=== PATIENT | female | born 1945 | race Caucasian/White ===

== ENCOUNTER → 2016-11-08 | Outpatient (CLI) | payer MEDICARE, OTHER ==
[~2016-11-08] MED LIST: ALPR0.25 PO; CALC-671 PO; CYAN50TA PO; DILT120C82 PO; FENO145T20 PO; FLUO20CA25 PO; FLUO40CA PO; GLUC100016 PO; MELA10TA3 PO; MULT-974 PO; NITR0.4T39 SL; POTA99TA15 PO
== END ==
LOC: CARD 12:02
PROVIDERS: ATTEND Nurse Practitioner Family
DX: I48.91 Unspecified atrial fibrillation (principal)
CPT/HCPCS: 93005

== ENCOUNTER 2016-11-23 06:55 | Inpatient (IN) | payer MEDICARE, OTHER ==
[~2016-11-23] VITALS: Ht 152.4 cm; Wt 67.1 kg
[2016-11-23] VITALS (22 sets, daily range): BP systolic 113–157; BP diastolic 59–114
[~2016-11-23 06:55] MED LIST changes: +LIDOCAINE 2% VISCOUS 15 ML UDC ONE
[2016-11-23] MEDS ORDERED: NS IV 1000 ML 1,000 ML ONE (06:56)
[2016-11-23] MEDS ORDERED: NS IV 1000 ML 1,000 ML IV SCH (06:57)
--- OUTSIDE RECORDS SUMMARY | 2016-11-23 06:58 | XMS REPORT | Continuity of Care Document ---
Author Author [facility] Organization [facility] Address Unknown Phone Unavailable Allergies Active Description Code Type Severity Reaction Onset Reported/Identified Relationship to Patient Clinical Status Yes No Known Drug Allergies [id number] Drug Allergy Unknown N/ A 04/17/2013 Yes DYE DYE Unknown N/A 01/29/2016 Medications Problems Date Dx Coded Attending Type Code Diagnosis Diagnosed By 10/17/2012 JEANNE JEFF DO Ot 726.5 ENTHESOPATHY OF HIP 10/17/2012 JEANNE JEFF DO Ot V57.1 PHYSICAL THERAPY NEC 04/17/2013 GILDA BARNES MD Ot 211.4 BENIGN NEOPL RECTUM/ANUS 04/17/2013 GILDA BARNES MD Ot 562.10 DIVERTICULOSIS COLON (W/O MENT OF HEMORR 10/22/2014 GILDA BARNES MD Ot 211.4 BENIGN NEOPL RECTUM/ANUS 10/22/2014 GILDA BARNES MD Ot 414.01 CORONARY ATHEROSCLEROSIS OF [place] CORON 10/22/2014 GILDA BARNES MD Ot 562.10 DIVERTICULOSIS COLON (W/O MENT OF HEMORR 01/09/2015 HERMAN TEJEDA MD Ot 311 01/09/2015 HERMAN TEJEDA MD Ot 401.9 01/09/2015 HERMAN TEJEDA MD Ot 786.09 01/09/2015 HERMAN TEJEDA MD Ot 786.50 01/15/2015 HERMAN TEJEDA MD Ot 311 01/15/2015 HERMAN TEJEDA MD Ot 401.9 01/15/2015 HERMAN TEJEDA MD Ot 786.09 01/15/2015 HERMAN TEJEDA MD Ot 786.50 01/21/2015 HERMAN TEJEDA MD Ot 311 01/21/2015 HERMAN TEJEDA MD Ot 401.9 01/21/2015 HERMAN TEJEDA MD Ot 786.09 01/21/2015 HERMAN TEJEDA MD Ot 786.50 10/08/2015 Ot 719.45 JOINT PAIN-PELVIS 10/08/2015 GILDA BARNES MD Ot V72.84 EXAM PRE-OPERATIVE NOS 10/08/2015 ADRY KIRK, JENNIFER [place] Ot V71.2 OBSERV-SUSPECT TB 10/08/2015 GILDA BARNES MD Ot V72.84 EXAM PRE-OPERATIVE NOS 10/08/2015 HERMAN TEJEDA MD Ot 311 DEPRESSIVE DISORDER NEC 10/08/2015 HERMAN TEJEDA MD Ot 401.9 HYPERTENSION NOS 10/08/2015 HERMAN TEJEDA MD Ot 786.09 RESPIRATORY ABNORM NEC 10/08/2015 HERMAN TEJEDA MD Ot 786.50 CHEST PAIN NOS 10/08/2015 HERMAN TEJEDA MD Ot 311 DEPRESSIVE DISORDER NEC 10/08/2015 HERMAN TEJEDA MD Ot 401.9 HYPERTENSION NOS 10/08/2015 EHRMAN TEJEDA MD Ot 786.09 RESPIRATORY ABNORM NEC 10/08/2015 HERMAN TEJEDA MD Ot 786.50 CHEST PAIN NOS 10/08/2015 HERMAN TEJEDA MD Ot R00.2 PALPITATIONS 10/09/2015 HERMAN TEJEDA MD Ot F32.9 MAJOR DEPRESSIVE DISORDER, SINGLE EPISOD 10/09/2015 HERMAN TEJEDA MD Ot I10 ESSENTIAL (PRIMARY) HYPERTENSION 10/09/2015 HERMAN TEJEDA MD Ot R00.2 PALPITATIONS 10/09/2015 HERMAN TEJEDA MD Ot R06.00 DYSPNEA, UNSPECIFIED 10/12/2015 HERMAN TEJEDA MD Ot F32.9 MAJOR DEPRESSIVE DISORDER, SINGLE EPISOD 10/12/2015 HERMAN TEJEDA MD Ot I10 ESSENTIAL (PRIMARY) HYPERTENSION 10/12/2015 HERMAN TEJEDA MD Ot R00.2 PALPITATIONS 10/12/2015 HERMAN TEJEDA MD Ot R06.00 DYSPNEA, UNSPECIFIED 11/04/2015 HERMAN TEJEDA MD Ot F32.9 MAJOR DEPRESSIVE DISORDER, SINGLE EPISOD 11/04/2015 HERMAN TEJEDA MD Ot I10 ESSENTIAL (PRIMARY) HYPERTENSION 11/04/2015 HERMAN TEJEDA MD Ot R00.2 PALPITATIONS 11/04/2015 HERMAN TEJEDA MD Ot R06.00 DYSPNEA, UNSPECIFIED 02/02/2016 SUREKHA JOSHI MD Ot F17.210 NICOTINE DEPENDENCE, CIGARETTES, UNCOMPL 02/02/2016 SUREKHA JOSHI MD Ot I10 ESSENTIAL (PRIMARY) HYPERTENSION 02/02/2016 SUREKHA JOSHI MD Ot R06.02 SHORTNESS OF BREATH 02/02/2016 SUREKHA JOSHI MD Ot R07.9 CHEST PAIN, UNSPECIFIED 02/02/2016 SUREKHA JOSHI MD Ot R42 DIZZINESS AND GIDDINESS 02/25/2016 SUREKHA JOSHI MD Ot F17.210 NICOTINE DEPENDENCE, CIGARETTES, UNCOMPL 02/25/2016 SUREKHA JOSHI MD Ot I10 ESSENTIAL (PRIMARY) HYPERTENSION 02/25/2016 SUREKHA JOSHI MD Ot R06.02 SHORTNESS OF BREATH 02/25/2016 SUREKHA JOSHI MD Ot R07.9 CHEST PAIN, UNSPECIFIED 02/25/2016 SUREKHA JOSHI MD Ot R42 DIZZINESS AND GIDDINESS 11/08/2016 Ot 719.45 JOINT PAIN-PELVIS 11/08/2016 GILDA BARNES MD Ot V72.84 EXAM PRE-OPERATIVE NOS 11/08/2016 ADRY KIRK, JENNIFER [place] Ot V71.2 OBSERV-SUSPECT TB 11/08/2016 GILDA BARNES MD Ot V72.84 EXAM PRE-OPERATIVE NOS 11/08/2016 HERMAN TEJEDA MD Ot 311 DEPRESSIVE DISORDER NEC 11/08/2016 HERMAN TEJEDA MD Ot 401.9 HYPERTENSION NOS 11/08/2016 HERMAN TEJEDA MD Ot 786.09 RESPIRATORY ABNORM NEC 11/08/2016 HERMAN TEJEDA MD Ot 786.50 CHEST PAIN NOS 11/08/2016 HERMAN TEJEDA MD Ot 311 DEPRESSIVE DISORDER NEC 11/08/2016 HERMAN TEJEDA MD Ot 401.9 HYPERTENSION NOS 11/08/2016 HERMAN TEJEDA MD Ot 786.09 RESPIRATORY ABNORM NEC 11/08/2016 HERMAN TEJEDA MD Ot 786.50 CHEST PAIN NOS 11/08/2016 HERMAN TEJEDA MD Ot F32.9 MAJOR DEPRESSIVE DISORDER, SINGLE EPISOD 11/08/2016 HERMAN TEJEDA MD Ot I10 ESSENTIAL (PRIMARY) HYPERTENSION 11/08/2016 HERMAN TEJEDA MD Ot R00.2 PALPITATIONS 11/08/2016 ILEANA KIRK, HERMAN [place] Ot R06.00 DYSPNEA, UNSPECIFIED 11/08/2016 SUREKHA JOSHI MD Ot F17.210 NICOTINE DEPENDENCE, CIGARETTES, UNCOMPL 11/08/2016 SUREKHA JOSHI MD Ot I10 ESSENTIAL (PRIMARY) HYPERTENSION 11/08/2016 SUREKHA JOSHI MD Ot R06.02 SHORTNESS OF BREATH 11/08/2016 SUREKHA JOSHI MD Ot R07.9 CHEST PAIN, UNSPECIFIED 11/08/2016 SUREKHA JOSHI MD Ot R42 DIZZINESS AND GIDDINESS 11/09/2016 FIDELIA BOOTH ENTRY LEVEL FINANCE Ot I48.91 UNSPECIFIED ATRIAL FIBRILLATION 11/14/2016 FIDELIA BOOTH ENTRY LEVEL FINANCE Ot I48.91 UNSPECIFIED ATRIAL FIBRILLATION Procedures Results Test Result Range Comprehensive metabolic panel - 01/29/16 15:51 Serum or plasma sodium measurement (moles/volume) 139 mmol/ L 135-145 Serum or plasma potassium measurement (moles/volume) 4.2 mmol/L 3.6-5.0 Serum or plasma chloride measurement (moles/volume) 106 mmol /L 98-107 Carbon dioxide 22 mmol/L 21-32 Serum or plasma anion gap determination (moles/volume) 11 mmol/L 5-14 Serum or plasma urea nitrogen measurement (mass/volume) 24 mg/dL 7-18 Serum or plasma creatinine measurement (mass/volume) 0.80 mg /dL 0.60-1.30 Serum or plasma urea nitrogen/creatinine mass ratio 30 NRG Serum or plasma creatinine measurement with calculation of estimated glomerular filtration rate > NRG Serum or plasma glucose measurement (mass/volume) 71 mg/dL 70-105 Serum or plasma calcium measurement (mass/volume) 9.6 mg/dL 8.5-10.1 Serum or plasma total bilirubin measurement (mass/volume) 0.3 mg/dL 0.1-1.0 Serum or plasma alkaline phosphatase measurement (enzymatic activity/volume) 49 U/L 40-136 Serum or plasma aspartate aminotransferase measurement (enzymatic activity/ volume) 30 U/L 5-34 Serum or plasma alanine aminotransferase measurement (enzymatic activity/volume ) 23 U/L 0-55 Serum or plasma protein measurement (mass/volume) 6.8 g/dL 6.4-8.2 Serum or plasma albumin measurement (mass/volume) 4.1 g/dL 3.2-4.5 Complete blood count (CBC) with automated white blood cell (WBC) differential - 01/29/16 15:51 Blood leukocytes automated count (number/volume) 5.0 10*3/ uL 4.3-11.0 Blood erythrocytes automated count (number/volume) 3.95 10*6 /uL 4.35-5.85 Venous blood hemoglobin measurement (mass/volume) 12.6 g/dL 11.5-16.0 Blood hematocrit (volume fraction) 37 % 35-52 Automated erythrocyte mean corpuscular volume 93 [foz_us] 80-99 Automated erythrocyte mean corpuscular hemoglobin (mass per erythrocyte) 32 pg 25-34 Automated erythrocyte mean corpuscular hemoglobin concentration measurement ( mass/volume) 34 g/dL 32-36 Automated erythrocyte distribution width ratio 12.7 % 10.0-14.5 Automated blood platelet count (count/volume) 238 10*3/uL 130-400 Automated blood platelet mean volume measurement 11.0 [foz_ us] 7.4-10.4 Automated blood neutrophils/100 leukocytes 52 % 42-75 Automated blood lymphocytes/100 leukocytes 34 % 12-44 Blood monocytes/100 leukocytes 12 % 0-12 Automated blood eosinophils/100 leukocytes 1 % 0-10 Automated blood basophils/100 leukocytes 1 % 0-10 Blood neutrophils automated count (number/volume) 2.6 10*3 1.8-7.8 Blood lymphocytes automated count (number/volume) 1.7 10*3 1.0-4.0 Blood monocytes automated count (number/volume) 0.6 10*3 0.0-1.0 Automated eosinophil count 0.1 10*3/uL 0.0-0.3 Automated blood basophil count (count/volume) 0.0 10*3/uL 0.0-0.1 Serum or plasma troponin i.cardiac measurement (mass/volume) - 01/29/16 15:51 Serum or plasma troponin i.cardiac measurement (mass/volume) < ng/mL <0.30 Encounters ACCT No. Visit Date/Time Discharge Status Pt. Type Provider Facility Loc./Unit Complaint [id number] 01/21/2015 09:33:00 2014 23:59:59 CLS Outpatient ILEANA KIRK, HERMAN [facility] CARD CHEST PAIN [id number] 12/17/2014 12:46:00 2014 23:59:59 CLS Outpatient HERMAN TEJEDA MD [facility] CARD CHEST PAIN HTN DYPSNEA [id number] 10/22/2014 07:25:00 2014 10:55:00 DIS Out[facility] [id number] 10/16/2014 06:03:00 2014 23:59:59 CLS Outpatient GILDA BARNES MD [facility] PREOP HISTORY OF POLYPS [id number] 08/13/2013 08:49:00 2013 23:59:59 CLS Outpatient JENNIFER RIDER MD [facility] RAD ROUTINE [id number] 04/17/2013 07:20:00 2012 11:30:00 DIS Outpatient GILDA BARNES MD [facility] SDC SCREENING [id number] 04/11/2013 07:25:00 2012 23:59:59 CLS Outpatient GILDA BARNES MD [facility] PREOP SCREENING [id number] 09/27/2012 12:51:00 2012 09:01:00 DIS Outpatient JEANNE JEFF DO [facility] REHAB R HIP BURSITIS [id number] 11/23/2016 08:00:00 PEN Preadmit HERMAN TEJEDA MD [facility] CATH AFIB,HTN [id number] 11/08/2016 12:02:00 ACT Outpatient FIDELIA BOOTH [facility] CARD AFIB [id number] 01/29/2016 15:35:00 ACT Emergency SUREKHA JOSHI MD [facility] ER CHEST PAIN [id number] 10/08/2015 09:50:00 ACT Outpatient HERMAN TEJEDA MD [facility] CARD PALPITATIONS,HTN,DYSPNEA,DEPRESSION [id number] 01/24/2012 11:53:00 Document Registration
[2016-11-23] MEDS: NS IV 1000 ML 1,000 ML IV SCH (07:23)
[2016-11-23 07:33] LABS: RED BLOOD COUNT 4.28 10^6/uL (4.35-5.85); RED CELL DISTRIBUTION WIDTH 13.6 % (10.0-14.5); WHITE BLOOD COUNT 4.4 10^3/uL (4.3-11.0)
[2016-11-23] MEDS ORDERED: proPOfol 200 MG/20 ML (DIPRIVAN) VIAL IV ONE (07:38)
[2016-11-23] MEDS ORDERED: fentaNYL INJECTION 100 MCG/2 ML AMP ONE (07:39)
[2016-11-23] MEDS ORDERED: MIDAZOLAM 5 MG/5 ML (VERSED) VIAL ONE (07:39)
[2016-11-23] MEDS ORDERED: FLUO40CA12 PO (07:40)
[2016-11-23] MEDS ORDERED: FEXO-192 PO (07:40)
[2016-11-23] MEDS ORDERED: COLLAGEN PO (07:40)
[2016-11-23] MEDS ORDERED: RIVA20TA PO (07:40)
[2016-11-23] MEDS ORDERED: OMEG-154 PO (07:40)
[2016-11-23] MEDS ORDERED: DILT180C54 PO (07:40)
[2016-11-23] MEDS ORDERED: RED600CA2 PO (07:40)
[2016-11-23] MEDS ORDERED: VIT1CAPS44 PO (07:40)
[2016-11-23] MEDS ORDERED: ACET650T14 PO (07:40)
[2016-11-23 07:44] LABS: INR 1.8 (0.8-1.4); PROTHROMBIN TIME PATIENT 20.5 SEC (12.2-14.7)
--- NOTE | 2016-11-23 07:46 | Diagnostic Imaging Report ---
INDICATION: Preop evaluation. No chest complaints. COMPARISON STUDY: Chest from 01/29/2016. FINDINGS: Portable view of the chest demonstrates previous sternotomy changes. Cardiomegaly is present. Central pulmonary vessels appear prominent, possible pulmonary hypertension. The vascularity is otherwise normal. The lungs are clear. There are no pleural effusions. IMPRESSION: Stable cardiomegaly with prominent central pulmonary vessels. Dictated by: Dictated on workstation # [id number]
[2016-11-23 07:53] LABS: ALANINE AMINOTRANSFERASE 27 U/L (0-55); ALBUMIN 3.8 GM/DL (3.2-4.5); ANION GAP 10 MMOL/L (5-14); ASPARTATE AMINO TRANSFERASE 29 U/L (5-34); BILIRUBIN,TOTAL 0.8 MG/DL (0.1-1.0); BLOOD UREA NITROGEN 14 MG/DL (7-18); BUN/CREATININE RATIO 21; CALCIUM 9.5 MG/DL (8.5-10.1); CARBON DIOXIDE 24 MMOL/L (21-32); CHLORIDE 106 MMOL/L (98-107); CHOLESTEROL 218 MG/DL (< 200); CREATININE SERUM 0.67 MG/DL (0.60-1.30); DIRECT LDL 140 MG/DL (1-129); GFR ESTIMATED > 60; GLUCOSE 107 MG/DL (70-105); POTASSIUM 3.9 MMOL/L (3.6-5.0); SODIUM 140 MMOL/L (135-145); TOTAL PROTEIN 7.4 GM/DL (6.4-8.2); TRIGLYCERIDES 77 MG/DL (<150); VLDL CHOLESTEROL 15 MG/DL (5-40)
--- NOTE | 2016-11-23 07:59 | Cardiac Procedure Note-CS/ASA ---
Pre-Procedure Note Pre-Op Procedure Note H&P Reviewed The H&P was reviewed, patient examined and no changes noted. Date H&P Reviewed: Nov 23, 2016 Time H&P Reviewed: 07:59 Conscious Sedation Pre-Proced Time Reviewed: 07:59 ASA Class: 3 Airway Mallampati Classification: ([place] appropriate class) I. II. III, IV Lungs Heart ASA score ASA 1: a normal healthy patient ASA 2: a patient with a mild systemic disease (mid diabetes, controlled hypertension, obesity x ASA 3: a patient with a severe systemic disease that limits activity (angina , COPD, prior Myocardial infarction) ASA 4: a patient with an incapacitating disease that is a constant threat to life (CHF, renal failure) ASA 5: a moribund patient not expected to survive 24 hrs. (ruptured aneurysm) ASA 6: a declared brain patient whose organs are being harvested. For emergent operations, add the letter E after the classification Grade 3 Sedation Plan: Analgesia, Amnesia, Plan communicated to team members, Discussed options with patient/fam, Discussed risks with patient/fam Note The patient is an appropriate candidate to undergo the planned procedure, sedation, and anesthesia. The patient immediately re-assessed prior to indication. HERMAN TEJEDA MD Nov 23, 2016 07:59
[2016-11-23] MEDS ORDERED: AMIODARONE 150 MG/3 ML (CORDARONE) AMP IV ONE (08:22)
--- NOTE | 2016-11-23 08:27 | Cardiology Post Procedure Note ---
Post-Procedure Note Physician (s)/Bobbin Inspector (s) Physician HERMAN TEJEDA MD Pre-Procedure Diagnosis Pre-Procedure Diagnosis: history of colon polyp Post-Procedure Note Procedure Start Date: Nov 23, 2016 Procedure Start Time: 08:26 Name of Procedure: Ghassan/Electrical Cardioversion Findings/Procedure Note A fib Anesthesia Type: Conscious Sedation Estimated blood loss (mL): 0 Contrast Amount: 0 Post-Procedure Diagnosis Post-operative diagnosis: A Fib HERMAN TEJEDA MD Nov 23, 2016 08:27
[2016-11-23] MEDS ORDERED: AMIODARONE FOR BOLUS 150 MG in D5W 100 ML IVPB 100 ML IV ONE (08:30)
--- NOTE | 2016-11-23 08:40 | Anesthesia-Procedure Note ---
Procedure Start/Stop Time Date of Procedure: Nov 23, 2016 Start Time: 08:05 Referring Physician: Jeanine Brief History AFIB Stop Time: 08:30 Procedures/Interventions Procedures Called to labor specialist to provide sedation for JULIET with cardioversion. Brief interview with patient, history reviewed, allergies verified. Pt on NC, increased to 4L for procedure. Versed 2mg IV given after preoperative interview. Total of 130mg of Propofol IV titrated to effect during procedure. VSS remain stable throughout. @0820, awakening, able to open eyes to command. Report to RICK WAGNER CRNA Nov 23, 2016 08:40
[2016-11-23] MEDS: AMIODARONE IV SOLUTION 200 ML IV SCH ×2 (09:43→15:45)
[2016-11-23] MEDS ORDERED: PATIENT MAY USE OWN MEDS, ALL MC SCH (10:30)
[2016-11-23] MEDS: FEXOFENADINE 180 MG TAB PO SCH (11:15)
[2016-11-23] MEDS: ACETAMINOPHEN 650 MG PO SCH ×2 (11:16→20:59)
[2016-11-23] MEDS: FLUOXETINE 40 MG CAPSULE PO SCH (11:16)
[2016-11-23] MEDS: FISH OIL 1200 MG CAPSULE PO SCH (17:06)
[2016-11-23] MEDS ORDERED: RIVAROXABAN 20 MG TABLET (XARELTO) PO SCH (18:00)
[2016-11-23] MEDS ORDERED: DILTIAZEM 180 MG (CARDIZEM CD) CAP PO SCH (21:00)
[2016-11-23] MEDS ORDERED: MELATONIN 10 MG TAB PO SCH (21:00)
[2016-11-24] VITALS (15 sets, daily range): BP systolic 121–146; BP diastolic 69–96
[2016-11-24] MEDS: AMIODARONE IV SOLUTION 200 ML IV SCH (02:05)
[2016-11-24] MEDS: NS IV 1000 ML 1,000 ML IV SCH (05:46)
--- NOTE | 2016-11-24 07:38 | Cardiac Procedure Note-CS/ASA ---
Pre-Procedure Note Pre-Op Procedure Note H&P Reviewed The H&P was reviewed, patient examined and no changes noted. Date H&P Reviewed: Nov 24, 2016 Time H&P Reviewed: 07:38 Conscious Sedation Pre-Proced Time Reviewed: 07:38 ASA Class: 3 Airway Mallampati Classification: ([place] appropriate class) I. II. III, IV Lungs Heart ASA score ASA 1: a normal healthy patient ASA 2: a patient with a mild systemic disease (mid diabetes, controlled hypertension, obesity x ASA 3: a patient with a severe systemic disease that limits activity (angina , COPD, prior Myocardial infarction) ASA 4: a patient with an incapacitating disease that is a constant threat to life (CHF, renal failure) ASA 5: a moribund patient not expected to survive 24 hrs. (ruptured aneurysm) ASA 6: a declared brain patient whose organs are being harvested. For emergent operations, add the letter E after the classification Grade 3 Sedation Plan: Analgesia, Amnesia, Plan communicated to team members, Discussed options with patient/fam, Discussed risks with patient/fam Note The patient is an appropriate candidate to undergo the planned procedure, sedation, and anesthesia. The patient immediately re-assessed prior to indication. HERMAN TEJEDA MD Nov 24, 2016 07:38
--- NOTE | 2016-11-24 07:42 | Cardiology Progress Note ---
Subjective Date Seen by Provider: Nov 24, 2016 Time Seen by Provider: 07:40 Subjective/Events-last exam patient is laying down in bed, feeling well. Denied any shortness of breath, chest pain, palpitation, still in atrial fibrillation Review of Systems General: No Chills, No Night Sweats, No Fatigue, No Malaise, No Appetite, No Other HEENT: No Head Aches, No Visual Changes, No Eye Pain, No Ear Pain, No Dysphasia , No Sinus Congestion, No Post Nasal Drip, No Sore Throat, No Other Pulmonary: No Dyspnea, No Cough, No Pleuritic Chest Pain, No Other Cardiovascular: No: Chest Pain, Edema, Lt Headedness, Orthopnea, Other, Palpitations, Paroxysmal Noc. Dyspnea Objective-Cardiology Exam Last Set of Vital Signs Vital Signs 11/23/16 11/24/16 08:30 06:00 Pulse 83 Resp 9 B/P (MAP) 142/96 Pulse Ox 94 O2 Delivery Room Air O2 Flow Rate 2.00 Capillary Refill : I&O Bad tableGeneral: Alert, Oriented X3, Cooperative HEENT: Atraumatic, PERRLA Neck: Supple, No JVD, No Thyromegaly Lungs: Clear to Auscultation, Normal Air Movement Heart: Normal S1, Normal S2, No Murmurs, Other (atrial fibrillation) Abdomen: Normal Bowel Sounds, Soft, No Tenderness, No Hepatosplenomegaly, No Masses Extremities: No Clubbing, No Cyanosis, No Edema, Normal Pulses, No Tenderness/ Swelling Skin: No Rashes, No Breakdown, No Significant Lesion Neuro: Normal Gait, Normal Speech, Strength at 5/5 X4 Ext, Normal Tone, Sensation Intact Psych/Mental Status: Mental Status NL, Mood NL A/P-Cardiology Admission Diagnosis atrial fibrillation Palpitation shortness of breath Hyperlipidemia Assessment/Plan atrial fibrillation with variable response. JULIET was done yesterday, was underwent electrical cardioversion without success. I started her on amiodarone drip, planning to repeat cardioversion today. Shortness of breath, chest pain, atypical in presentation, resolved. Continue to monitor Palpitation, secondary to atrial fibrillation Severe mitral regurgitation. Hyperlipidemia Clinical Quality Measures DVT/VTE Risk/Contraindication: Risk Factor Score Per Nursin RFS Level Per Nursing on Admit: 2=Moderate HERMAN TEJEDA MD Nov 24, 2016 07:42
[2016-11-24] MEDS ORDERED: MIDAZOLAM 5 MG/5 ML (VERSED) VIAL ONE (08:06)
[2016-11-24] MEDS ORDERED: proPOfol 200 MG/20 ML (DIPRIVAN) VIAL IV ONE (08:07)
[2016-11-24] MEDS ORDERED: NS IV 500 ML 500 ML ONE (08:07)
[2016-11-24] MEDS ORDERED: fentaNYL INJECTION 100 MCG/2 ML AMP ONE (08:35)
--- NOTE | 2016-11-24 08:57 | Cardiology Post Procedure Note ---
Post-Procedure Note Physician (s)/Wood Filler (s) Physician HERMAN TEJEDA MD Pre-Procedure Diagnosis Pre-Procedure Diagnosis: A FIB Post-Procedure Note Procedure Start Date: Nov 24, 2016 Procedure Start Time: 08:56 Name of Procedure: electrical cardioversion Findings/Procedure Note patient was sedated with the assist of anesthesia, synchronized DC cardioversion 200 J were delivered and it was successful in terminating atrial fibrillation. Patient maintained sinus rhythm Anesthesia Type: Conscious Sedation Estimated blood loss (mL): 0 Contrast Amount: 0 Post-Procedure Diagnosis Post-operative diagnosis: atrial fibrillation HERMAN TEJEDA MD Nov 24, 2016 08:57
[2016-11-24] MEDS ORDERED: AMIODARONE 200 MG (CORDARONE) TAB PO SCH (09:00)
[2016-11-24] MEDS: FLUOXETINE 40 MG CAPSULE PO SCH (09:56)
[2016-11-24] MEDS: ACETAMINOPHEN 650 MG PO SCH (09:56)
[2016-11-24] MEDS: FEXOFENADINE 180 MG TAB PO SCH (09:57)
[2016-11-24] MEDS: FISH OIL 1200 MG CAPSULE PO SCH (10:30)
--- OUTSIDE RECORDS SUMMARY | 2016-11-24 10:40 | XMS REPORT | Continuity of Care Document ---
Author Author [facility] Organization [facility] Address Unknown Phone Unavailable Allergies Active Description Code Type Severity Reaction Onset Reported/Identified Relationship to Patient Clinical Status Yes No Known Drug Allergies [id number] Drug Allergy Unknown N/ A 04/17/2013 Yes [...] BARNES MD Ot 414.01 CORONARY ATHEROSCLEROSIS OF [place] CORON 10/22/2014 GILDA BARNES MD Ot 562.10 [...] Ot 786.50 CHEST PAIN NOS 10/08/2015 HERMAN TJEEDA MD Ot R00.2 PALPITATIONS 10/09/2015 HERMAN TEJEDA [...] R42 DIZZINESS AND GIDDINESS 11/09/2016 FIDELIA BOOTH [employer] MANA[employer] Ot I48.91 UNSPECIFIED ATRIAL FIBRILLATION 11/14/2016 FIDELIA BOOTH [employer] MANA[employer] Ot I48.91 UNSPECIFIED ATRIAL FIBRILLATION Procedures Results [...] Status Pt. Type Provider Facility Loc./Unit Complaint [id number] 01/21/2015 09:33:00 2014 23:59:59 CLS Outpatient ILEANA KIRK, HERMAN [facility] CARD CHEST PAIN [id number] 12/17/2014 12:46:00 2014 23:59:59 CLS Outpatient HERMAN TEJEDA MD [facility] CARD CHEST PAIN HTN DYPSNEA [id number] 10/22/2014 07:25:00 2014 10:55:00 DIS [facility] [id number] 10/16/2014 06:03:00 2014 23:59:59 CLS Outpatient GILDA BARNES MD [facility] PREOP HISTORY OF POLYPS [id number] 08/13/2013 08:49:00 2013 23:59:59 CLS Outpatient JENNIFER RIDER MD [facility] RAD ROUTINE [id number] 04/17/2013 07:20:00 2012 11:30:00 DIS Outpatient GILDA BARNES MD [facility] SDC SCREENING [id number] 04/11/2013 07:25:00 2012 23:59:59 CLS Outpatient GILDA BARNES MD [facility] PREOP SCREENING [id number] 09/27/2012 12:51:00 2012 09:01:00 DIS Outpatient JEANNE JEFF DO [facility] REHAB R HIP BURSITIS [id number] 11/23/2016 08:00:00 PEN Preadmit HERMAN TEJEDA MD [facility] CATH AFIB,HTN [id number] 11/08/2016 12:02:00 ACT Outpatient FIDELIA BOOTH [facility] CARD AFIB [id number] 01/29/2016 15:35:00 ACT Emergency SUREKHA JOSHI MD [facility] ER CHEST PAIN [id number] 10/08/2015 09:50:00 ACT Outpatient HERMAN TEJEDA MD [facility] CARD PALPITATIONS,HTN,DYSPNEA,DEPRESSION [id number] 01/24/2012 11:53:00 Document Registration
--- NOTE | 2016-11-24 11:03 | Anesthesia-Procedure Note ---
Procedure Start/Stop Time Date of Procedure: Nov 24, 2016 Start Time: 08:37 Stop Time: 08:47 Procedures/Interventions Procedures Called to sedate patient for cardioversion. A total of 50mg propofol was given IV. Patient tolerated well, vital signs stable. Patient responding to verbal commands, report to SHOE REPAIR SUPERVISOR KRYSTAL,MARIA EUGENIA Luciano CRNA Nov 24, 2016 11:03
[2016-11-24] MEDS ORDERED: AMIO200T2 PO (15:09)
--- NOTE | 2016-11-24 15:13 | Clinic Account Progress/Dx ---
Clinic Account Progress/Dx DIAGNOSIS: Date Seen by Provider: Nov 24, 2016 Time Seen by Provider: 15:13 Diagnosis atrial fibrillation Palpitation shortness of breath Hyperlipidemia HERMAN TEJEDA MD Nov 24, 2016 3:13 pm
== END 2016-11-24 15:40 | disposition home or self-care (01) | DRG 310 ==
LOC: CATH 06:55 → ICU 09:00 → CATH 11-24 10:13 → ICU 11-24 10:14
PROVIDERS: ADMIT Internal Medicine Cardiovascular Disease; ATTEND Internal Medicine Cardiovascular Disease
PROC: 5A2204Z Restoration of Cardiac Rhythm, Single (ICD-10-PCS; 2016-11-23)
PROC: 5A2204Z Restoration of Cardiac Rhythm, Single (ICD-10-PCS; principal; 2016-11-24)
DX: I48.91 Unspecified atrial fibrillation (principal); E78.5 Hyperlipidemia, unspecified; R07.89 Other chest pain; I34.0 Nonrheumatic mitral (valve) insufficiency
CPT/HCPCS: 36415; 71010; 80053; 80061; 85027; 85610; 85730; 87081; 93005; 93312; 93320; 93325

== ENCOUNTER 2016-12-20 09:45 | Emergency (ER) | payer MEDICARE, OTHER ==
[~2016-12-20] VITALS: Ht 152.4 cm; Wt 67.1 kg
[~2016-12-20 09:45] MED LIST changes: +ACET650T14 PO; +AMIO200T2 PO; +COLLAGEN PO; +DILT180C54 PO; +FEXO-192 PO; +FLUO40CA12 PO; -LIDOCAINE 2% VISCOUS 15 ML UDC ONE; +OMEG-154 PO; +RED600CA2 PO; +RIVA20TA PO; +VIT1CAPS44 PO
[2016-12-20 09:59] LABS: BASOPHILS % (AUTO) 1 % (0-10); EOSINOPHILS # (AUTO) 0.1 10^3/uL (0.0-0.3); EOSINOPHILS % (AUTO) 1 % (0-10); LYMPHOCYTES # (AUTO) 1.3 X 10^3 (1.0-4.0); LYMPHOCYTES % (AUTO) 32 % (12-44); MEAN CORPUSCULAR HEMOGLOBIN 31 PG (25-34); MEAN CORPUSCULAR HGB CONC 33 G/DL (32-36); MEAN CORPUSCULAR VOLUME 93 FL (80-99); MEAN PLATELET VOLUME 9.8 FL (7.4-10.4); MONOCYTES # (AUTO) 0.8 X 10^3 (0.0-1.0); MONOCYTES % (AUTO) 19 % (0-12); NEUTROPHILS # (AUTO) 1.9 X 10^3 (1.8-7.8); NEUTROPHILS % (AUTO) 48 % (42-75); PLATELET COUNT 199 10^3/uL (130-400); RED BLOOD COUNT 4.35 10^6/uL (4.35-5.85); RED CELL DISTRIBUTION WIDTH 13.5 % (10.0-14.5)
[2016-12-20] MEDS ORDERED: ASPIRIN 81 MG CHEW (CHILDREN'S ASA) PO ONE (10:00)
[2016-12-20] MEDS ORDERED: RX-NITROGLYCERIN 0.4 MG TAB BTL 25'S SL PRN (10:00)
--- NOTE | 2016-12-20 10:03 | ED Chest Pain ---
General Chief Complaint: Chest Pain Stated Complaint: CHEST PAIN Source: patient Exam Limitations: no limitations History of Present Illness Time seen by provider: 09:48 Initial Comments Here with report of acute onset of chest pressure. States that it started epigastric and radiated down to her pelvis and up to her left shoulder. Associated with weakness and sweating. He denies vomiting but did have nausea. Did take 2 nitroglycerin tablets in route and states that did mostly relieve her discomfort and pressure. She has slight pressure remaining to the Center of the chest. Timing/Duration: 1/2 hour Severity/Quality: moderate, severe Location: central Radiation: neck, shoulders, back, other (pelvis) Activities at Onset: none Prior CP/Workup: cardiac cath, echocardiography, other (open-heart surgery for septal defect) ASA po LEGAL RECRUITER: No NTG SL LEGAL RECRUITER: Yes Associated Symptoms: abdominal pain, back pain, diaphoresis, No dizziness, No fever/chills, nausea/vomiting, No shortness of breath, weakness Allergies and Home Medications Allergies Uncoded Allergies: DYE (Allergy, Unknown, 01/29/16) Home Medications Acetaminophen 650 Mg Tablet.er, 650 MG PO BID, (Reported) Amiodarone HCl 200 Mg Tablet, 200 MG PO BID, #100 Ref 1 please take 400 mg twice daily for one week then continue on 200 mg twice daily Prescribed by: HERMAN SOLORZANO on 11/24/16 1509 Diltiazem HCl 180 Mg Cap.er.24h, 180 MG PO HS, (Reported) Fexofenadine HCl 180 Mg Tablet, 180 MG PO DAILY, (Reported) Fluoxetine HCl 40 Mg Capsule, 40 MG PO DAILY, (Reported) Melatonin 10 Mg Tablet.er, 10 MG PO HS, (Reported) [place]-3S/Dha/Epa/Fish Oil 1 Each Capsule.dr, 1 EACH PO BID, (Reported) Red Yeast Rice 600 Mg Capsule, 600 MG PO BID, (Reported) Rivaroxaban 20 Mg Tablet, 20 MG PO DAILY, (Reported) Vit C/E/Zn/Coppr/Lutein/Zeaxan 1 Each Capsule, 1 EACH PO BID, (Reported) [Collagen] , 1 TAB PO BID, (Reported) Review of Systems Constitutional: see HPI, No chills, No fever EENTM: No Symptoms Reported Respiratory: No Symptoms Reported Cardiovascular: See HPI, Chest Pain, Denies Edema, Denies Irregular Heart Rate Gastrointestinal: Abdominal Pain, Nausea, Denies Vomiting Genitourinary: No Symptoms Reported Musculoskeletal: no symptoms reported Skin: no symptoms reported Psychiatric/Neurological: No Symptoms Reported All Other Systems Reviewed Negative Unless Noted: Yes Past Jgycbwg-Jwyscf-Hoejpi Hx Patient Social History Alcohol Use: Denies Use Recreational Drug Use: No Smoking Status: Current Everyday Smoker Type Used: Electronic/Vapor Recent Hopitalizations: No Immunizations Up To Date Tetanus Booster (TDap): Less than 5yrs Date of Pneumonia Vaccine: May 08, 2013 Seasonal Allergies Seasonal Allergies: Yes Surgeries HX Surgeries: Yes Surgeries: Abdominal, Cardiac, Gallbladder, Hysterectomy Respiratory Hx Respiratory Disorders: No Respiratory Disorders: Pneumonia Cardiovascular Hx Cardiac Disorders: Yes (HX OF OPEN HEART SURGERY; RELATED TO ATRIAL DEFECT) Neurological Hx Neurological Disorders: No Genitourinary Hx Genitourinary Disorders: No Gastrointestinal Hx Gastrointestinal Disorders: No Musculoskeletal Hx Musculoskeletal Disorders: No Musculoskeletal Disorders: Arthritis Endocrine Hx Endocrine Disorders: No Psychosocial Behavioral Health Disorders: Anxiety, Depression Reviewed Nursing Assessment Reviewed/Agree w Nursing PMH: Yes Family Medical History Significant Family History: No Pertinent Family Hx Family Medial History: FH: breast cancer 19 MOTHER FH: heart disease 19 FATHER Physical Exam Vital Signs Vital Sign - Last 12Hours 12/20/16 09:45 Temp 97.9 Pulse 64 Resp 20 B/P (MAP) 133/76 Pulse Ox 96 O2 Delivery Room Air O2 Flow Rate 2.0 Capillary Refill : General Appearance: WD/WN, Anxious, Mild Distress HEENT: PERRL/EOMI, Pharynx Normal Neck: Non Tender, Supple Respiratory: Lungs Clear, Normal Breath Sounds Cardiovascular: Regular Rate, Rhythm, No Murmur Gastrointestinal: Non Tender, Soft Extremity: Normal Range of Motion, Non Tender Neurologic/Psychiatric: Alert, Oriented x3 Skin: Normal Color, Warm/Dry Progress/Results/Core Measures Results/Orders Lab Results Laboratory Tests Test 12/20/16 09:54 12/20/16 12:05 Range/Units White Blood Count 4.0 L 4.3-11.0 10^3/uL Red Blood Count 4.35 4.35-5.85 10^6/uL Hemoglobin 13.5 11.5-16.0 G/DL Hematocrit 40 35-52 % Mean Corpuscular Volume 93 80-99 FL Mean Corpuscular Hemoglobin 31 25-34 PG Mean Corpuscular Hemoglobin Concent 33 32-36 G/DL Red Cell Distribution Width 13.5 10.0-14.5 % Platelet Count 199 130-400 10^3/uL Mean Platelet Volume 9.8 7.4-10.4 FL Neutrophils (%) (Auto) 48 42-75 % Lymphocytes (%) (Auto) 32 12-44 % Monocytes (%) (Auto) 19 H 0-12 % Eosinophils (%) (Auto) 1 0-10 % Basophils (%) (Auto) 1 0-10 % Neutrophils # (Auto) 1.9 1.8-7.8 X 10^3 Lymphocytes # (Auto) 1.3 1.0-4.0 X 10^3 Monocytes # (Auto) 0.8 0.0-1.0 X 10^3 Eosinophils # (Auto) 0.1 0.0-0.3 10^3/uL Basophils # (Auto) 0.0 0.0-0.1 10^3/uL Prothrombin Time 19.9 H 12.2-14.7 SEC INR Comment 1.7 H 0.8-1.4 Activated Partial Thromboplast Time 30 24-35 SEC D-Dimer 0.36 0.00-0.49 UG/ML Sodium Level 138 135-145 MMOL/L Potassium Level 3.8 3.6-5.0 MMOL/L Chloride Level 104 98-107 MMOL/L Carbon Dioxide Level 22 21-32 MMOL/L Anion Gap 12 5-14 MMOL/L Blood Urea Nitrogen 14 7-18 MG/DL Creatinine 0.72 0.60-1.30 MG/DL Estimat Glomerular Filtration Rate > 60 BUN/Creatinine Ratio 19 Glucose Level 109 H 70-105 MG/DL Calcium Level 8.9 8.5-10.1 MG/DL Magnesium Level 1.8 1.8-2.4 MG/DL Total Bilirubin 0.8 0.1-1.0 MG/DL Aspartate Amino Transf (AST/SGOT) 44 H 5-34 U/L Alanine Aminotransferase (ALT/SGPT) 74 H 0-55 U/L Alkaline Phosphatase 135 40-136 U/L Myoglobin 25.5 32.0 10.0-92.0 NG/ML Troponin I < 0.30 < 0.30 <0.30 NG/ML Total Protein 6.9 6.4-8.2 GM/DL Albumin 3.6 3.2-4.5 GM/DL Amylase Level 60 25-125 U/L Lipase 40 8-78 U/L My Orders Orders - JEFERSON DE JESUS MD Cbc With Automated Diff (12/20/16 09:49) Magnesium (12/20/16 09:49) Chest 1 View, Ap/Pa Only (12/20/16 09:49) Ekg Tracing (12/20/16 09:49) Cardiac Profile 1 (12/20/16 09:49) Comprehensive Metabolic Panel (12/20/16 09:49) Myoglobin Serum (12/20/16 09:49) Protime With Inr (12/20/16 09:49) Partial Thromboplastin Time (12/20/16 09:49) O2 (12/20/16 09:49) Monitor-Rhythm Ecg Trace Only (12/20/16 09:49) Lipid Panel (12/21/16 06:00) Aspirin Chewable Tablet (Baby Aspirin Ch (12/20/16 10:00) Rx-Nitroglycerin Sl Tabs (Rx-Nitrostat S (12/20/16 10:00) Saline Lock/Iv-Start (12/20/16 09:49) Amylase (12/20/16 10:03) Fibrin Degradation Products (12/20/16 10:03) Lipase (12/20/16 10:03) Ekg Tracing (12/20/16 12:04) Troponin I (12/20/16 12:04) Myoglobin Serum (12/20/16 12:04) Medications Given in ED Current Medications Medications Dose Ordered Sig/Deena Route Start Time Stop Time Status Last Admin Dose Admin Aspirin 324 mg ONCE ONCE PO 12/20/16 10:00 12/20/16 10:01 DC 12/20/16 10:05 324 MG Nitroglycerin 0.4 mg PRN PRN SL 12/20/16 10:00 12/20/16 10:05 0.4 MG Vital Signs/I&O Vital Sign - Last 12Hours 12/20/16 12/20/16 09:45 09:45 Temp 97.9 Pulse 64 Resp 20 B/P (MAP) 133/76 Pulse Ox 96 O2 Delivery Room Air Nasal Cannula O2 Flow Rate 2.0 Progress Note : Progress Note Seen and evaluated. IV, labs, EKG, chest x-ray, ASA 324 mg by mouth and nitroglycerin sublingual ordered. Monitor patient. 1105: Patient pain free and has been pain-free essentially most of the ER visit. She would really like to go home now. We did discuss risk factors and minimizing wrist. She was able to repeating labs and EKG and another hour and reevaluating from there. 1245: Repeat labs negative. No acute findings. Patient remains pain free and is resting comfortably in the room interacting with and family members. Discharged home with return precautions. Patient verbalize understanding instructions and agreement with plan. She understands that she needs follow-up related to her chest pain and will likely need further evaluation. She has established android platform developer with Dr. Solorzano and I will send a copy of the chart to him as well as Dr. Walker. ECG Initial ECG Impression Date: Dec 20, 2016 Initial ECG Impression Time: 09:48 Initial ECG Rate: 66 Initial ECG Rhythm: Normal Sinus Comment Normal sinus rhythm with left atrial abnormality. Normal axis. No evidence of ST elevation NM. Change from previous in which she was in atrial fibrillation. Interpreted by me. EKG : EKG Time: 12:44 Rate: 61 Rhythm: Normal Sinus Comment Sinus rhythm with normal axis. No evidence of ST elevation NM. Similar to previous done earlier. Interpreted by me. Diagnostic Imaging Diagonstic Imaging: Xray Plain Films/CT/US/NM/MRI: chest Comments [facility] [place], [place] NAME: FALGUNI LI [facility] REC#: [id number] PT STATUS: REG ER : 1945 PHYSICIAN: JEFERSON DE JESUS MD ADMIT DATE: 12/20/16/ER Draft Date of Exam:12/20/16 CHEST 1 VIEW, AP/PA ONLY INDICATION: Chest pain. COMPARISON: 11/23/2016. FINDINGS: An upright portable view of the chest was obtained. Median sternotomy changes are again noted. The heart size is normal. The pulmonary vessels appear unremarkable. There is no pneumothorax, mediastinal widening, or pleural fluid demonstrated. There is mild elevation of the left hemidiaphragm. The lungs are clear. IMPRESSION: No radiographic evidence of an acute cardiopulmonary process. No significant interval change from the prior study. Dictated on workstation # [id number] Dict: 12/20/16 1013 Trans: 12/20/16 1016 [id number] Interpreted by: GUILLERMO CASTELLANOS DO Electronically signed by: Departure Impression Impression: Primary Impression: Chest pain Qualified Codes: R07.9 - Chest pain, unspecified Disposition: HOME, SELF-CARE Condition: Improved Departure-Patient Inst. Decision time for Depature: 12:49 Referrals: JENNIFER WALKER MD (PCP/Family) Primary Care Physician Patient Instructions: Chest Pain (DC) Add. Discharge Instructions: All discharge instructions reviewed with patient and/or family. Voiced understanding. It is very important that he follow up with your heart doctor and your primary care physician for recheck and further evaluation related to your chest pain. While the labs do not show significant findings at this time, it is still possible that you're having any chest pain event. It is very important that you return for chest pain, vomiting, weakness, sweating, breathing problems or any other concerns as needed. Continue home medications as directed. Copy Copies To 1: HERMAN SOLORZANO MD Copies To 2: JENNIFER WALKER MD, TIMOTHY D MD Dec 20, 2016 10:03
[2016-12-20 10:10] LABS: INR 1.7 (0.8-1.4); PROTHROMBIN TIME PATIENT 19.9 SEC (12.2-14.7)
--- NOTE | 2016-12-20 10:17 | Diagnostic Imaging Report ---
INDICATION: Chest pain. COMPARISON: 11/23/2016. FINDINGS: An upright portable view of the chest was obtained. Median sternotomy changes are again noted. The heart size is normal. The pulmonary vessels appear unremarkable. There is no pneumothorax, mediastinal widening, or pleural fluid demonstrated. There is mild elevation of the left hemidiaphragm. The lungs are clear. IMPRESSION: No radiographic evidence of an acute cardiopulmonary process. No significant interval change from the prior study. Dictated by: Dictated on workstation # [id number]
[2016-12-20 10:24] LABS: MYOGLOBIN SERUM 25.5 NG/ML (10.0-92.0)
[2016-12-20 10:26] LABS: AMYLASE 60 U/L (25-125)
[2016-12-20 10:27] LABS: ALANINE AMINOTRANSFERASE 74 U/L (0-55); ALBUMIN 3.6 GM/DL (3.2-4.5); ANION GAP 12 MMOL/L (5-14); ASPARTATE AMINO TRANSFERASE 44 U/L (5-34); BILIRUBIN,TOTAL 0.8 MG/DL (0.1-1.0); BLOOD UREA NITROGEN 14 MG/DL (7-18); BUN/CREATININE RATIO 19; CALCIUM 8.9 MG/DL (8.5-10.1); CARBON DIOXIDE 22 MMOL/L (21-32); CHLORIDE 104 MMOL/L (98-107); CREATININE SERUM 0.72 MG/DL (0.60-1.30); GFR ESTIMATED > 60; GLUCOSE 109 MG/DL (70-105); LIPASE 40 U/L (8-78); MAGNESIUM 1.8 MG/DL (1.8-2.4); POTASSIUM 3.8 MMOL/L (3.6-5.0); SODIUM 138 MMOL/L (135-145); TOTAL PROTEIN 6.9 GM/DL (6.4-8.2)
[2016-12-20 12:35] LABS: TROPONIN I < 0.30 NG/ML (<0.30)
[2016-12-20 12:54] VITALS: BP 130/80
== END 2016-12-20 12:54 | disposition home or self-care (01) ==
LOC: EDUNIT# 09:45 → ER 09:46
DX: R07.9 Chest pain, unspecified (principal); F41.9 Anxiety disorder, unspecified; F32.9 Major depressive disorder, single episode, unspecified; M19.90 Unspecified osteoarthritis, unspecified site; F17.210 Nicotine dependence, cigarettes, uncomplicated; Z90.710 Acquired absence of both cervix and uterus; Z98.890 Other specified postprocedural states
CPT/HCPCS: 36415; 71010; 80053; 82150; 83690; 83735; 83874; 84484; 85025; 85379; 85610; 85730; 93005; 93041

== ENCOUNTER 2017-01-11 06:43 | Day surgery (SDC) | payer MEDICARE, OTHER ==
[~2017-01-11] VITALS: Ht 152.4 cm; Wt 63.5 kg
[2017-01-11] VITALS (8 sets, daily range): BP systolic 91–145; BP diastolic 65–84
[2017-01-11] MEDS ORDERED: NS IV 1000 ML 1,000 ML ONE (06:55)
[2017-01-11] MEDS ORDERED: HEParin (CATH LAB) 2,000 ML IV ONE (06:55)
[2017-01-11 07:27] LABS: MEAN PLATELET VOLUME 9.7 FL (7.4-10.4); RED BLOOD COUNT 4.19 10^6/uL (4.35-5.85); RED CELL DISTRIBUTION WIDTH 13.6 % (10.0-14.5); WHITE BLOOD COUNT 3.5 10^3/uL (4.3-11.0)
[2017-01-11] MEDS: NS IV 1000 ML 1,000 ML IV SCH ×3 (07:29→20:27)
[2017-01-11 07:35] LABS: PROTHROMBIN TIME PATIENT 12.8 SEC (12.2-14.7)
--- NOTE | 2017-01-11 07:43 | Diagnostic Imaging Report ---
INDICATION: Chest pressure. COMPARISON: 12/20/2016. FINDINGS: Sternal wires are midline. Heart size is stable. There is some mild prominence of the central pulmonary vascularity unchanged. No effusion or pneumothorax. IMPRESSION: Stable chest. Dictated by: Dictated on workstation # [id number]
[2017-01-11 07:47] LABS: ALANINE AMINOTRANSFERASE 44 U/L (0-55); ALBUMIN 3.5 GM/DL (3.2-4.5); ANION GAP 9 MMOL/L (5-14); ASPARTATE AMINO TRANSFERASE 34 U/L (5-34); BILIRUBIN,TOTAL 0.7 MG/DL (0.1-1.0); BLOOD UREA NITROGEN 17 MG/DL (7-18); BUN/CREATININE RATIO 25; CALCIUM 9.1 MG/DL (8.5-10.1); CARBON DIOXIDE 25 MMOL/L (21-32); CHLORIDE 107 MMOL/L (98-107); CHOLESTEROL 215 MG/DL (< 200); CREATININE SERUM 0.67 MG/DL (0.60-1.30); DIRECT LDL 147 MG/DL (1-129); GFR ESTIMATED > 60; GLUCOSE 107 MG/DL (70-105); SODIUM 141 MMOL/L (135-145); TOTAL PROTEIN 6.5 GM/DL (6.4-8.2); TRIGLYCERIDES 101 MG/DL (<150); VLDL CHOLESTEROL 20 MG/DL (5-40)
--- NOTE | 2017-01-11 07:57 | Cardiac Procedure Note-CS/ASA ---
Pre-Procedure Note Pre-Op Procedure Note H&P Reviewed The H&P was reviewed, patient examined and no changes noted. Date H&P Reviewed: Jan 11, 2017 Time H&P Reviewed: 07:57 Conscious Sedation Pre-Proced Time Reviewed: 07:57 ASA Class: 3 Airway Mallampati Classification: (eklutna appropriate class) I. II. III, IV Lungs Heart ASA score ASA 1: a normal healthy patient ASA 2: a patient with a mild systemic disease (mid diabetes, controlled hypertension, obesity x ASA 3: a patient with a severe systemic disease that limits activity (angina , COPD, prior Myocardial infarction) ASA 4: a patient with an incapacitating disease that is a constant threat to life (CHF, renal failure) ASA 5: a moribund patient not expected to survive 24 hrs. (ruptured aneurysm) ASA 6: a declared brain patient whose organs are being harvested. For emergent operations, add the letter E after the classification Grade 3 Sedation Plan: Analgesia, Amnesia, Plan communicated to team members, Discussed options with patient/fam, Discussed risks with patient/fam Note The patient is an appropriate candidate to undergo the planned procedure, sedation, and anesthesia. The patient immediately re-assessed prior to indication. HERMAN TEJEDA MD Jan 11, 2017 07:57
[2017-01-11] MEDS ORDERED: diphenhydrAMINE 50 MG/ML INJ (BENADRYL) ONE (08:16)
[2017-01-11] MEDS ORDERED: fentaNYL INJECTION 100 MCG/2 ML AMP ONE (08:16)
[2017-01-11] MEDS ORDERED: MIDAZOLAM 5 MG/5 ML (VERSED) VIAL ONE (08:16)
[2017-01-11] MEDS ORDERED: KRIL1CAP12 PO (08:18)
[2017-01-11] MEDS ORDERED: OMEG-109 PO (08:18)
[2017-01-11] MEDS ORDERED: AMIO200T2 PO (08:18)
[2017-01-11] MEDS ORDERED: EPTIFIBATIDE BOLUS 20 ML IV ONE (08:57)
[2017-01-11] MEDS ORDERED: HEParin 1000 UNIT/ML (10ML VIAL) FOR BOLUS ONE ×2 (08:57→09:46)
[2017-01-11] MEDS ORDERED: NITROGLYCERIN DRIP 25 MG/D5W 250 ML IV ONE ×2 (08:57→09:47)
[2017-01-11] MEDS ORDERED: CLOPIDOGREL 300 MG (PLAVIX) TABLET PO ONE (09:47)
[2017-01-11] MEDS ORDERED: ASPIRIN 325 MG (5 GR) TABLET ONE (09:47)
[2017-01-11] MEDS ORDERED: EPTIFIBATIDE DRIP 100 ML IV ONE (09:48)
[2017-01-11] MEDS ORDERED: EPTIFIBATIDE DRIP 100 ML IV SCH (10:00)
[2017-01-11] MEDS ORDERED: PATIENT MAY USE OWN MEDS, ALL PO SCH (10:00)
[2017-01-11] MEDS ORDERED: NITROGLYCERIN DRIP 25 MG/D5W 250 ML IV SCH (10:00)
[2017-01-11] MEDS ORDERED: ONDANSETRON 4 MG/2 ML (SDV) Z0FRAN ONE (10:02)
--- NOTE | 2017-01-11 11:05 | Cardiac Cath Report ---
Cardiac Cath Report Physician (s)/Rn Perioperative (s) Physician HERMAN TEJEDA MD Pre-Procedure Diagnosis Pre-Procedure Diagnosis: CAD Post-Procedure Note Procedure Start Date: Jan 11, 2017 Procedure Start Time: 10:00 Name of Procedure: left heart catheterization, aortic arch angiogram Stent to the LAD 3 stents to the circumflex Findings/Procedure Note PROCEDURE NOTE: After explaining the procedure to the patient, all pros and cons were explained, all questions were answered. The patient signed the consent and then she was placed on the cardiac catheterization laboratory. The patient was placed on the cardiac catheterization laboratory. Groin was prepped SL fashion local anesthesia was used. Sheath placed in the artery. Mariza right and left catheter were used to access the coronary system. Pigtail was used to access the left ventricular cavity. Left ventriculogram was done Aortic arch angiogram was done Angioplasty and stent procedure Patient has severe stenosis at LAD, left circumflex and right coronary artery, She has history of open heart surgery in 1979 with . ASD repair, I decided to proceed with pertains intervention. Patient was given 5000 units of heparin, FL guide was advanced left carotid system, BMW wire was advanced through the LAD has 70 percent stenosis in the mid LAD predilatation with 2.515 mm balloon and then I proceeded with placement of a Xience Alpine 3023 mm expanded to 3.15 with excellent results. Patient was given additional 3000 of heparin and I pulled the BMW wires from the LAD and advanced in the circumflex artery, placing the balloon prior to inflating the balloon was limiting the flow patient has severe stenosis at long segment of the circumflex artery I proceeded with predilatation then deployed a 2.515 mm stent in the proximal circumflex artery followed by 2.2515 mm at the distal circumflex artery postdilated with noncompliant 2.5 balloon and then redeployed a third stent in between the other 2 stents overlapping with the other 2 stents using 2.515 mm with excellent results. No residual stenosis was noted. Patient was initially having chest pain then reporting improvement, had mild nausea and vomiting. She was given Integrilin bolus and a drip and started on nitroglycerin drip. At the end of the procedure the sheath was removed. Closure device was used, Good results then when the patient was having vomiting she started developing bleeding manual pressure applied hemostasis achieved FINDINGS: Hemodynamics LV 144/12, end-diastolic pressure of 12 Aorta 148/67/97 ANATOMY: Left Main has mild disease Left Anterior Descending proximally has 40 percent stenosis, proximal to mid has severe stenosis at successful balloon angioplasty then stent deployment using 3.023 mm Xience Alpine stent expanded to 3.15 mm with excellent results Left Circumflex severe stenosis with complex intervention using 3 stents of Xience alpine overlapping stents 2.515 mm, 2.515 mm and 2.25x 15 mm with excellent results Right Coronory Artery has severe stenosis at a very long segment which will be treated at a later point LV Gram was not done Aorta evaluation was done through aortic arch angiogram which showed diffuse atherosclerotic disease, origin of the great neck vessels was normal. No dissection or aneurysm CONCLUSION: Multivessel coronary artery disease severe stenosis requiring complex intervention. LAD has 40-50 percent proximal stenosis which is treated medically, severe stenosis of the proximal to midportion successful stenting using Xience Alpine 3.023 mm expanded to 3.15 with excellent results. Left circumflex has severe stenosis at a long segment requiring 3 overlapping stents Xience Alpine 2.5 x 15 mm, 2.5-50 mm and 2.25x 15 mm expanded proximally to 2.74 and the mid segment 2.7 and distally 2.5 mm with excellent results. Small vessel disease distally Right coronary artery dominant artery with severe stenosis at a long segment extending from the proximal portion just above the bifurcation requiring complex intervention which will be done in the near future Normal left ventricle end-diastolic pressure Normal aortic arch and great vessels DISCUSSION AND RECOMMENDATION: Patient has multivessel coronary artery disease staged intervention due to the complexity, large amount of contrast was used. Trying to avoid surgery due to the history of open heart surgery and scarring. Patient has small vessel disease distally. I will continue maximizing medical therapy at this time, hold Xarelto due to the fact that patient is in sinus rhythm and maintained on amiodarone and I will use aspirin and Plavix for now. Anesthesia Type: Conscious Sedation Estimated blood loss (mL): 40 Contrast Amount: 262 Total Radiation Dose: 2919 Post-Procedure Diagnosis Post-operative diagnosis: Coronary artery disease Paroxysmal atrial fibrillation Hypertension Hyperlipidemia HERMAN TEJEDA MD Jan 11, 2017 11:05
[2017-01-11] MEDS ORDERED: ACETAMINOPHEN 500 MG TAB (TYLENOL) PO PRN (18:30)
[2017-01-11] MEDS ORDERED: Melatonin 10 MG PO SCH (21:00)
[2017-01-11] MEDS ORDERED: DILTIAZEM 180 MG (CARDIZEM CD) CAP PO SCH (21:00)
[2017-01-11] MEDS: [UNRECOGNIZED DRUG - OTHER] PO SCH (21:19)
[2017-01-11] MEDS: RED YEAST RICE 600 MG PO SCH (21:22)
[2017-01-12] VITALS: BP 117/65
[2017-01-12 04:00] VITALS: BP 128/57
[2017-01-12 04:49] LABS: MEAN PLATELET VOLUME 10.2 FL (7.4-10.4); RED BLOOD COUNT 3.18 10^6/uL (4.35-5.85); RED CELL DISTRIBUTION WIDTH 13.8 % (10.0-14.5); WHITE BLOOD COUNT 4.6 10^3/uL (4.3-11.0)
[2017-01-12 05:10] LABS: ANION GAP 9 MMOL/L (5-14); BLOOD UREA NITROGEN 14 MG/DL (7-18); BUN/CREATININE RATIO 22; CALCIUM 8.4 MG/DL (8.5-10.1); CARBON DIOXIDE 25 MMOL/L (21-32); CHLORIDE 105 MMOL/L (98-107); CREATININE SERUM 0.64 MG/DL (0.60-1.30); GFR ESTIMATED > 60; GLUCOSE 100 MG/DL (70-105); POTASSIUM 4.2 MMOL/L (3.6-5.0); SODIUM 139 MMOL/L (135-145)
[2017-01-12] MEDS: NS IV 1000 ML 1,000 ML IV SCH ×2 (06:21)
--- NOTE | 2017-01-12 07:46 | Short Stay Summary ---
History of Present Illness History of Present Illness Reason for visit/HPI 71 years old lady with history of hypertension, hyperlipidemia, admitted for elective cardiac catheterization and intervention, had complex anatomy, triple vessel disease requiring multiple stenting to the LAD and circumflex and will be staged for intervention to the right coronary artery in the future. She is intolerant to statin. Has history of hypertension, has history of open-heart surgery with ASD repair Date of Admission January 11, 2017 Date of Discharge January 12, 2017 Time Seen by Provider: 07:42 Attending Physician Herman Solorzano MD Admitting Physician Kim Walker MD Consult Allergies and Home Medications Allergies Coded Allergies: fenofibrate (Verified Adverse Reaction, Intermediate, CRAMPING, 01/11/17) Uncoded Allergies: DYE (Allergy, Unknown, 01/29/16) Home Medications Acetaminophen 650 Mg Tablet.er, 650 MG PO BID, (Reported) Amiodarone HCl 200 Mg Tablet, 100 MG PO DAILY, (Reported) TAKES 1/2 (200MG) TABLET Diltiazem HCl 180 Mg Cap.er.24h, 180 MG PO HS, (Reported) Fexofenadine HCl 180 Mg Tablet, 180 MG PO DAILY PRN for ALLERGIES, (Reported) Fluoxetine HCl 40 Mg Capsule, 40 MG PO DAILY, (Reported) Krill/[place]-3/Dha/Epa/Lipids 1 Each Capsule, 350 MG PO DAILY, (Reported) Melatonin 10 Mg Tablet.er, 10 MG PO HS, (Reported) [place]-3 Fatty Acids/Fish Oil 1 Each Capsule, 1,200 MG PO BID, (Reported) Red Yeast Rice 600 Mg Capsule, 600 MG PO BID, (Reported) Rivaroxaban 20 Mg Tablet, 20 MG PO HS, (Reported) Vit C/E/Zn/Coppr/Lutein/Zeaxan 1 Each Capsule, 1 TAB PO BID, (Reported) Past Wyrypmo-Ovvbsr-Ycjkiq Hx Patient Social History 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 Smoking Status: Current Everyday Smoker Type Used: Electronic/Vapor 2nd Hand Smoke Exposure: No Recent Foreign Travel: No Contact w/other who traveled: No Recent Hopitalizations: No Recent Infectious Disease Expo: No Immunizations Up To Date Tetanus Booster (TDap): Less than 5yrs Date of Pneumonia Vaccine: May 08, 2013 Seasonal Allergies Seasonal Allergies: Yes Surgeries HX Surgeries: Yes Surgeries: Abdominal, Cardiac, Gallbladder, Hysterectomy Respiratory Hx Respiratory Disorders: Yes Cardiovascular Hx Cardiovascular Disorders: Yes (HX OF OPEN HEART SURGERY; RELATED TO ATRIAL DEFECT) Neurological Hx Neurological Disorders: No Genitourinary Hx Genitourinary Disorders: No Gastrointestinal Hx Gastrointestinal Disorders: No Musculoskeletal Hx Musculoskeletal Disorders: No Musculoskeletal Disorders: Arthritis Endocrine Hx Endocrine Disorders: No Psychosocial Behavioral Health Disorders: Anxiety, Depression Family Medical History Significant Family History: No Pertinent Family Hx Family Hx: FH: breast cancer 19 MOTHER FH: heart disease 19 FATHER Constitutional: no symptoms reported, see HPI EENTM: see HPI, no symptoms reported Respiratory: see HPI Cardiovascular: see HPI, chest pain Gastrointestinal: no symptoms reported, see HPI Genitourinary: no symptoms reported, see HPI Musculoskeletal: see HPI Skin: see HPI Psychiatric/Neurological: No Symptoms Reported, See HPI Physical Exam Vital Signs Vital Sign - Last 12Hours 01/11/17 01/11/17 07:21 10:45 Temp 98.0 Pulse 70 Resp 16 B/P (MAP) 145/84 Pulse Ox 94 O2 Delivery Room Air O2 Flow Rate 2.00 Capillary Refill : Less Than 3 Seconds General Appearance: No Apparent Distress, WD/WN Eyes: Bilateral Eye Normal Inspection, Bilateral Eye PERRL, Bilateral Eye EOMI HEENT: PERRL/EOMI, TMs Normal, Normal ENT Inspection, Pharynx Normal Neck: Full Range of Motion, Normal Inspection, Non Tender, Supple, Carotid Bruit Respiratory: Chest Non Tender, Lungs Clear, Normal Breath Sounds, No Accessory Muscle Use, No Respiratory Distress Cardiovascular: Regular Rate, Rhythm, No Edema, No Gallop, No JVD, No Murmur, Normal Peripheral Pulses Gastrointestinal: Normal Bowel Sounds, No Organomegaly, No Pulsatile Mass, Non Tender, Soft Back: Normal Inspection, No CVA Tenderness, No Vertebral Tenderness Extremity: Normal Capillary Refill, Normal Inspection, Normal Range of Motion, Non Tender, No Calf Tenderness, No Pedal Edema Neurologic/Psychiatric: Alert, Oriented x3, No Motor/Sensory Deficits, Normal Mood/Affect Skin: Normal Color, Warm/Dry Lymphatic: No Adenopathy Short Stay Diagnosis Discharge Diagnosis-Short Stay Admission Diagnosis: coronary artery disease Hypertension Hyperlipidemia Intolerant to statin History of atrial septal defect repair Final Discharge Diagnosis: coronary artery disease Hypertension Hyperlipidemia Intolerant to statin History of atrial septal defect repair Conclusion Labs Laboratory Tests 01/12/17 03:54: White Blood Count 4.6, Red Blood Count 3.18L, Hemoglobin 10.0#L, Hematocrit 31L , Mean Corpuscular Volume 97, Mean Corpuscular Hemoglobin 31, Mean Corpuscular Hemoglobin Concent 33, Red Cell Distribution Width 13.8, Platelet Count 208, Mean Platelet Volume 10.2, Sodium Level 139, Potassium Level 4.2, Chloride Level 105, Carbon Dioxide Level 25, Anion Gap 9, Blood Urea Nitrogen 14, Creatinine 0.64, Estimat Glomerular Filtration Rate > 60, BUN/Creatinine Ratio 22, Glucose Level 100, Calcium Level 8.4L Conclusion/Plan Coronary artery disease, status post cardiac catheterization showing: Multivessel coronary artery disease severe stenosis requiring complex intervention. LAD has 40-50 percent proximal stenosis which is treated medically, severe stenosis of the proximal to midportion successful stenting using Xience Alpine 3.023 mm expanded to 3.15 with excellent results. Left circumflex has severe stenosis at a long segment requiring 3 overlapping stents Xience Alpine 2.5 x 15 mm, 2.5-50 mm and 2.25x 15 mm expanded proximally to 2.74 and the mid segment 2.7 and distally 2.5 mm with excellent results. Small vessel disease distally Right coronary artery dominant artery with severe stenosis at a long segment extending from the proximal portion just above the bifurcation requiring complex intervention which will be done in the near future Normal left ventricle end-diastolic pressure Normal aortic arch and great vessels Planning for intervention on the right coronary artery in the near future once clinically stable Status post nausea and vomiting resulted in failure of Mynx device, groin is healing well, bruising on the groin, continue to monitor as an outpatient Hypertension, restart home medication and monitor Hyperlipidemia, intolerant to statin, I will consider the use of Repatha Paroxysmal atrial fibrillation, currently in sinus rhythm on amiodarone, I started aspirin and Plavix and will hold Xarelto due to the bleed in her groin and aggressive anticoagulation History of atrial septal defect repair in 1980s HERMAN SOLORZANO MD Jan 12, 2017 07:46
[2017-01-12] MEDS ORDERED: CLOP75TA28 PO (07:47)
[2017-01-12] MEDS ORDERED: ASPI-983 PO (07:47)
--- NOTE | 2017-01-12 07:48 | Discharge Inst-Post CATH ---
Discharge Inst-CATH Post Cardiac Cath D/C Inst Follow Up/Plan Appointment with Dr. Solorzano's office next week CARDIAC CATH DISCHARGE INSTRUCTIONS *Hold Metformin for 48 hours post heart cath. ACTIVITY * Go Home directly and rest. * Limit activity of the leg (or wrist if it was used) for 7 days including aerobics, swimming, jogging, bicycling, etc. * Restrict stair-climbing for 7 days if possible, if not, climb up with your non -cath leg, then bring together on the same step. * Avoid lifting, pushing, pulling or excessive movement of the affected extremity for 7 days. * Customary sexual activity may be resumed after 2 days-use caution not to use a position that strains or causes pain to the affected extremity. * No driving for 24 hours. * NO SMOKING. * Avoid straining for bowel movements for 7 days. * Gentle walking on level ground is allowed. * Returning to work will depend on the type of procedure and the results. Your doctor will discuss this with you. CALL YOUR DOCTOR FOR ANY OF THE FOLLOWING: *If bleeding from the puncture site occurs- Apply gentle pressure to site with clean cloth and call your doctor or EMS. * If a knot or lump forms under the skin, increases in size, or causes pain. * If bruising appears to be worsening or moving further down your leg instead of disappearing. * Temperature above 101 F. CARE OF YOUR GROIN INCISION; * Bruising or purple discoloration of the skin near the puncture site is common. * You may shower only, no bathtub bathing for 5 days. Be careful to avoid slipping as your leg may feel stiff. * If a closure device was used on your femoral artery, please see the attached guide regarding care of the device and your leg. * REMOVE the dressing from your groin the next day after your procedure in the shower. CARE OF YOUR WRIST INCISION; * Bruising or purple discoloration of the skin near the puncture site is common. * You may shower. * DO NOT submerge wrist. * Remove dressing in 24 hours. HERMAN SOLORZANO MD Jan 12, 2017 07:48
[2017-01-12] MEDS: RED YEAST RICE 600 MG PO SCH (08:07)
[2017-01-12] MEDS: [UNRECOGNIZED DRUG - OTHER] PO SCH (08:08)
[2017-01-12 08:13] VITALS: BP 118/66
[2017-01-12] MEDS ORDERED: KRILL OIL 350 MG PO SCH (09:00)
[2017-01-12] MEDS ORDERED: CLOPIDOGREL 75 MG (PLAVIX) TABLET PO SCH (09:00)
[2017-01-12] MEDS ORDERED: ASPIRIN E.C. 81 MG (ECOTRIN) TAB PO SCH (09:00)
[2017-01-12] MEDS ORDERED: AMIODARONE 200 MG (CORDARONE) TAB PO SCH (09:00)
[2017-01-12] MEDS ORDERED: PATIENT'S OWN MED (RX USE ONLY) PO SCH (09:00)
== END 2017-01-12 10:10 | disposition home or self-care (01) ==
LOC: CATH 06:43 → ICU 10:45 → CATH 01-12 10:10
PROVIDERS: ATTEND Internal Medicine Cardiovascular Disease
DX: I25.10 Atherosclerotic heart disease of native coronary artery without angina pectoris (principal); I10 Essential (primary) hypertension; E78.5 Hyperlipidemia, unspecified; I48.0 Paroxysmal atrial fibrillation; F41.8 Other specified anxiety disorders; M79.606 Pain in leg, unspecified; Z79.01 Long term (current) use of anticoagulants; Z98.890 Other specified postprocedural states; Z79.899 Other long term (current) drug therapy
CPT/HCPCS: 36221; 36415; 71010; 80048; 80053; 80061; 85027; 85347; 85610; 85730; 87081; 93005; 93458

== ENCOUNTER 2017-01-25 07:48 | Day surgery (SDC) | payer MEDICARE, OTHER ==
[2017-01-25] VITALS (16 sets, daily range): BP systolic 106–137; BP diastolic 63–78
[~2017-01-25] VITALS: Ht 152.4 cm; Wt 63.1 kg
[~2017-01-25 07:48] MED LIST changes: +ASPI-983 PO; +CLOP75TA28 PO; +KRIL1CAP12 PO; +OMEG-109 PO
[2017-01-25] MEDS ORDERED: NS IV 1000 ML 1,000 ML ONE (07:50)
[2017-01-25] MEDS ORDERED: HEParin (CATH LAB) 2,000 ML IV ONE (07:50)
[2017-01-25] MEDS ORDERED: NS IV 1000 ML 1,000 ML IV SCH (08:00)
--- NOTE | 2017-01-25 08:27 | Diagnostic Imaging Report ---
Clinical indication: Pre-heart catheter chest x-ray with coronary angiography and left ventriculography with possible coronary angioplasty. Patient has no chest complaints today. Exam: Portable chest x-ray upright view. Comparisons: Portable chest x-ray dated 01/11/2017. FINDINGS: Lungs are clear. There is no pleural effusion or pneumothorax. Stable prominence of the bilateral hilar regions. Stable cardiomegaly. Again seen postop changes to the chest with sternotomy wires. Surgical clips are seen overlying the right upper quadrant which could be related to cholecystectomy changes. Again seen levoscoliosis of the thoracolumbar spine. IMPRESSION: 1: Stable chest x-ray exam with no interval lung infiltrate. 2: Stable cardiomegaly and stable prominence of the bilateral perihilar regions. Dictated by: Dictated on workstation # [id number]
--- NOTE | 2017-01-25 08:28 | Cardiac Procedure Note-CS/ASA ---
Pre-Procedure Note Pre-Op Procedure Note H&P Reviewed The H&P was reviewed, patient examined and no changes noted. Date H&P Reviewed: Jan 25, 2017 Time H&P Reviewed: 08:28 Conscious Sedation Pre-Proced Time Reviewed: 08: ASA Class: 3 Airway Mallampati Classification: ([place] appropriate class) I. II. III, IV Lungs Heart ASA score ASA 1: a normal healthy patient ASA 2: a patient with a mild systemic disease (mid diabetes, controlled hypertension, obesity x ASA 3: a patient with a severe systemic disease that limits activity (angina , COPD, prior Myocardial infarction) ASA 4: a patient with an incapacitating disease that is a constant threat to life (CHF, renal failure) ASA 5: a moribund patient not expected to survive 24 hrs. (ruptured aneurysm) ASA 6: a declared brain patient whose organs are being harvested. For emergent operations, add the letter E after the classification Grade 3 Sedation Plan: Analgesia, Amnesia, Plan communicated to team members, Discussed options with patient/fam, Discussed risks with patient/fam Note The patient is an appropriate candidate to undergo the planned procedure, sedation, and anesthesia. The patient immediately re-assessed prior to indication. HERMAN TEJEDA MD Jan 25, 2017 8:28 am
[2017-01-25 08:39] LABS: MEAN PLATELET VOLUME 9.6 FL (7.4-10.4); RED BLOOD COUNT 3.31 10^6/uL (4.35-5.85); RED CELL DISTRIBUTION WIDTH 14.1 % (10.0-14.5); WHITE BLOOD COUNT 6.3 10^3/uL (4.3-11.0)
[2017-01-25] MEDS ORDERED: NITR0.4T39 SL (08:42)
[2017-01-25 08:53] LABS: PROTHROMBIN TIME PATIENT 13.4 SEC (12.2-14.7)
[2017-01-25 08:59] LABS: ALANINE AMINOTRANSFERASE 21 U/L (0-55); ALBUMIN 3.2 GM/DL (3.2-4.5); ANION GAP 13 MMOL/L (5-14); ASPARTATE AMINO TRANSFERASE 22 U/L (5-34); BILIRUBIN,TOTAL 1.3 MG/DL (0.1-1.0); BLOOD UREA NITROGEN 11 MG/DL (7-18); BUN/CREATININE RATIO 17; CALCIUM 8.9 MG/DL (8.5-10.1); CARBON DIOXIDE 24 MMOL/L (21-32); CHLORIDE 105 MMOL/L (98-107); CREATININE SERUM 0.63 MG/DL (0.60-1.30); GFR ESTIMATED > 60; GLUCOSE 102 MG/DL (70-105); POTASSIUM 3.3 MMOL/L (3.6-5.0); SODIUM 142 MMOL/L (135-145); TOTAL PROTEIN 6.9 GM/DL (6.4-8.2)
[2017-01-25] MEDS ORDERED: MIDAZOLAM 5 MG/5 ML (VERSED) VIAL ONE (09:41)
[2017-01-25] MEDS ORDERED: fentaNYL INJECTION 100 MCG/2 ML AMP ONE (09:41)
[2017-01-25] MEDS ORDERED: diphenhydrAMINE 50 MG/ML INJ (BENADRYL) ONE (09:42)
[2017-01-25] MEDS ORDERED: HEParin 1000 UNIT/ML (10ML VIAL) FOR BOLUS ONE (10:03)
[2017-01-25] MEDS ORDERED: NITROGLYCERIN DRIP 25 MG/D5W 250 ML IV ONE (10:08)
[2017-01-25] MEDS ORDERED: CLOPIDOGREL 75 MG (PLAVIX) TABLET ONE (11:02)
[2017-01-25] MEDS ORDERED: ASPIRIN 325 MG (5 GR) TABLET ONE (11:02)
[2017-01-25] MEDS ORDERED: ONDANSETRON 4 MG/2 ML (SDV) Z0FRAN ONE (11:11)
--- NOTE | 2017-01-25 11:27 | Cardiac Cath Report ---
Cardiac Cath Report Physician (s)/Supervisor [employer] (s) Physician HERMAN TEJEDA MD Pre-Procedure Diagnosis Pre-Procedure Diagnosis: CAD Post-Procedure Note Procedure Start Date: Jan 25, 2017 Procedure Start Time: 10:00 Name of Procedure: coronary angiogram Stent to the right coronary artery Findings/Procedure Note PROCEDURE NOTE: After explaining the procedure to the patient, all pros and cons were explained, all questions were answered. The patient signed the consent and then she was placed on the cardiac catheterization laboratory. The patient was placed on the cardiac catheterization laboratory. Groin was prepped SL fashion local anesthesia was used. Sheath placed in the artery. FR side was used to access the right coronary artery, patient has severe diffuse stenosis, BMW wire was used to access. Patient received total of 7000 units of heparin, I proceeded with predilatation using 2.520 mm balloon, multiple inflations were made, could not advance the first stent I had to use robb wire and then I was able to deploy the first stent, post dilated then I could not advance the second stent I proceeded with robb wire and put the second stent overlapping with the first one again had difficulty with advancing the third stent I used a robb wire again and placed in overlapping third stent then postdilated with noncompliant balloon 3015 mm profile with the 3 stents. Patient received 3 stents in the right coronary artery Xience Alpine 2.538, 2.5 33, 2.75x23 overlapping stents postdilated to 3.0 distally and 3.15 proximally , there was a lesion in the proximal portion was resistant I had to go to high pressure to 18 abbie to open it. At the end of the procedure there was no residual stenosis with excellent results. Due to the fact that patient had some chest pain after the procedure 2 weeks ago and there was a small lesion in the circumflex artery I decided to proceed with angiogram to the left carotid system I placed an FL catheter and placed it in the left carotid system, one injection with 6 mm of contrast was made. At the end of the procedure sheath was removed device deployed hemostasis achieved FINDINGS: Hemodynamics Aorta 157/60 mean of 84 ANATOMY: Left Main is free of obstructive disease Left Anterior Descending has a patent stent with mild disease distally Left Circumflex has 2 overlapping stent with 40 percent stenosis distally did not change compared to 2 weeks ago. The stents are open Right Coronory Artery has severe diffuse disease with subtotal occlusion proximally, resistant lesion required multiple intervention and using robb wire and postdilatation at high pressure to the proximal lesion, total of 3 stents Xience Alpine 2.538, 2.533 and 2.7523 postdilated to 3.0 distally and 3.15 proximally with excellent results with no residual stenosis. CONCLUSION: 1. Right Coronory Artery has severe diffuse disease with subtotal occlusion proximally, resistant lesion required multiple intervention and using robb wire and postdilatation at high pressure to the proximal lesion, total of 3 stents Xience Alpine 2.538, 2.533 and 2.7523 postdilated to 3.0 distally and 3.15 proximally with excellent results with no residual stenosis. 2. Patent stent in the LAD and 2 stents in the circumflex artery, 40 percent stenosis at the distal circumflex artery did not change compared to the previous study DISCUSSION AND RECOMMENDATION: I will continue maximizing medical therapy. Monitor overnight. Anesthesia Type: Conscious Sedation Estimated blood loss (mL): 30 ml Contrast Amount: 138 ml Total Radiation Dose: 1323 mGy Post-Procedure Diagnosis Post-operative diagnosis: coronary artery disease HERMAN TEJEDA MD Jan 25, 2017 11:27
[2017-01-25] MEDS ORDERED: NITROGLYCERIN SUBLINGUAL 0.4 MG TAB (NITROSTAT) SL PRN (11:30)
[2017-01-25] MEDS ORDERED: PATIENT MAY USE OWN MEDS, ALL PO SCH (11:30)
[2017-01-25] MEDS: NS IV 1000 ML 1,000 ML IV SCH (11:45)
[2017-01-25] MEDS ORDERED: MELATONIN 10 MG PO SCH (21:00)
[2017-01-25] MEDS ORDERED: DILTIAZEM 180 MG (CARDIZEM CD) CAP PO SCH (21:00)
[2017-01-25] MEDS ORDERED: RED YEAST RICE 600 MG PO SCH (21:00)
[2017-01-26 00:05] VITALS: BP 114/68
[2017-01-26] MEDS: NS IV 1000 ML 1,000 ML IV SCH ×2 (00:17→06:43)
[2017-01-26 04:07] VITALS: BP_SYST 113; BP_SYST 66; BP_DIAS 6; BP_DIAS 66
[2017-01-26 04:37] LABS: MEAN PLATELET VOLUME 9.8 FL (7.4-10.4); RED BLOOD COUNT 2.78 10^6/uL (4.35-5.85); RED CELL DISTRIBUTION WIDTH 13.8 % (10.0-14.5); WHITE BLOOD COUNT 4.5 10^3/uL (4.3-11.0)
[2017-01-26 05:19] LABS: ANION GAP 10 MMOL/L (5-14); BLOOD UREA NITROGEN 15 MG/DL (7-18); BUN/CREATININE RATIO 27; CALCIUM 8.5 MG/DL (8.5-10.1); CARBON DIOXIDE 22 MMOL/L (21-32); CHLORIDE 106 MMOL/L (98-107); CREATININE SERUM 0.56 MG/DL (0.60-1.30); GFR ESTIMATED > 60; GLUCOSE 143 MG/DL (70-105); SODIUM 138 MMOL/L (135-145)
--- NOTE | 2017-01-26 08:09 | Cardiology Progress Note ---
Subjective Date Seen by Provider: Jan 26, 2017 Time Seen by Provider: 08:06 Subjective/Events-last exam Patient is in bed, feeling better, no chest pain or shortness of breath, groin is healing well. Review of Systems General: No Chills, No Night Sweats, No Fatigue, No Malaise, No Appetite, No Other HEENT: No Head Aches, No Visual Changes, No Eye Pain, No Ear Pain, No Dysphasia , No Sinus Congestion, No Post Nasal Drip, No Sore Throat, No Other Pulmonary: No Dyspnea, No Cough, No Pleuritic Chest Pain, No Other Cardiovascular: No: Chest Pain, Palpitations, Orthopnea, Paroxysmal Noc. Dyspnea, Edema, Lt Headedness, Other Objective-Cardiology Exam Last Set of Vital Signs Vital Signs 01/25/17 01/26/17 18:00 04:07 Temp 97.0 Pulse 67 Resp 16 B/P (MAP) 113/66 Pulse Ox 93 O2 Delivery Room Air O2 Flow Rate 2.00 Capillary Refill : Less Than 3 Seconds I&O Intake and Output 01/27/17 00:00 Intake Total 100 ml Balance 100 ml Intake Oral 100 ml # Voids 1 General: Alert, Oriented X3, Cooperative HEENT: Atraumatic, PERRLA Neck: Supple, No JVD, No Thyromegaly Lungs: Clear to Auscultation, Normal Air Movement Heart: Regular Rate, Normal S1, Normal S2, No Murmurs Abdomen: Normal Bowel Sounds, Soft, No Tenderness, No Hepatosplenomegaly, No Masses Extremities: No Clubbing, No Cyanosis, No Edema, Normal Pulses, No Tenderness/ Swelling Skin: No Rashes, No Breakdown, No Significant Lesion Neuro: Normal Gait, Normal Speech, Strength at 5/5 X4 Ext, Normal Tone, Sensation Intact Psych/Mental Status: Mental Status NL, Mood NL Results Lab Laboratory Tests 01/25/17 08:25 01/26/17 04:02 A/P-Cardiology Admission Diagnosis coronary artery disease Paroxysmal atrial fibrillation Hypertension Hyperlipidemia Assessment/Plan Coronary artery disease status post cardiac catheterization, findings: CONCLUSION: 1. Right Coronory Artery has severe diffuse disease with subtotal occlusion proximally, resistant lesion required multiple intervention and using robb wire and postdilatation at high pressure to the proximal lesion, total of 3 stents Xience Alpine 2.538, 2.533 and 2.7523 postdilated to 3.0 distally and 3.15 proximally with excellent results with no residual stenosis. 2. Patent stent in the LAD and 2 stents in the circumflex artery, 40 percent stenosis at the distal circumflex artery did not change compared to the previous study Paroxysmal atrial fibrillation maintained on amiodarone, continue to monitor, no further episodes were noted Hypertension, controlled continue on current medications Hyperlipidemia, continue to monitor lipids Anemia, multiple intervention. Continue to monitor HERMAN TEJEDA MD Jan 26, 2017 08:09
--- NOTE | 2017-01-26 08:10 | Clinic Account Progress/Dx ---
Clinic Account Progress/Dx DIAGNOSIS: Date Seen by Provider: Jan 26, 2017 Time Seen by Provider: 08:10 Diagnosis paroxysmal atrial fibrillation Coronary artery disease Hypertension Hyperlipidemia HERMAN TEJEDA MD Jan 26, 2017 08:10
--- NOTE | 2017-01-26 08:11 | Discharge Inst-Post CATH ---
Discharge Inst-CATH Post Cardiac Cath D/C Inst Follow Up/Plan Appointment with Dr. Solorzano's office in one to 2 weeks CARDIAC CATH DISCHARGE INSTRUCTIONS *Hold Metformin for 48 hours post heart cath. ACTIVITY * Go Home directly and rest. * Limit activity of the leg (or wrist if it was used) for 7 days including aerobics, swimming, jogging, bicycling, etc. * Restrict stair-climbing for 7 days if possible, if not, climb up with your non -cath leg, then bring together on the same step. * Avoid lifting, pushing, pulling or excessive movement of the affected extremity for 7 days. * Customary sexual activity may be resumed after 2 days-use caution not to use a position that strains or causes pain to the affected extremity. * No driving for 24 hours. * NO SMOKING. * Avoid straining for bowel movements for 7 days. * Gentle walking on level ground is allowed. * Returning to work will depend on the type of procedure and the results. Your doctor will discuss this with you. CALL YOUR DOCTOR FOR ANY OF THE FOLLOWING: *If bleeding from the puncture site occurs- Apply gentle pressure to site with clean cloth and call your doctor or EMS. * If a knot or lump forms under the skin, increases in size, or causes pain. * If bruising appears to be worsening or moving further down your leg instead of disappearing. * Temperature above 101 F. CARE OF YOUR GROIN INCISION; * Bruising or purple discoloration of the skin near the puncture site is common. * You may shower only, no bathtub bathing for 5 days. Be careful to avoid slipping as your leg may feel stiff. * If a closure device was used on your femoral artery, please see the attached guide regarding care of the device and your leg. * REMOVE the dressing from your groin the next day after your procedure in the shower. CARE OF YOUR WRIST INCISION; * Bruising or purple discoloration of the skin near the puncture site is common. * You may shower. * DO NOT submerge wrist. * Remove dressing in 24 hours. HERMAN SOLORZANO MD Jan 26, 2017 08:11
[2017-01-26 08:22] VITALS: BP 142/73
[2017-01-26] MEDS ORDERED: ASPIRIN E.C. 81 MG (ECOTRIN) TAB PO SCH (09:00)
[2017-01-26] MEDS ORDERED: KRILL OIL 350 MG PO SCH (09:00)
[2017-01-26] MEDS ORDERED: CLOPIDOGREL 75 MG (PLAVIX) TABLET PO SCH (09:00)
[2017-01-26] MEDS ORDERED: AMIODARONE 200 MG (CORDARONE) TAB PO SCH (09:00)
[2017-01-26 09:57] VITALS: BP 142/73
[2017-02-01 13:52] LABS: CYP2C19 GENO *17/Neg; CYP2C19 SPEC Whole Blood
[2017-02-01 15:18] LABS: CYP2C19 PHENOTYPE INTERP Rapid
== END 2017-01-26 10:10 | disposition home or self-care (01) ==
LOC: CATH 07:48 → ICU 11:45 → CATH 01-26 10:10
PROVIDERS: ATTEND Internal Medicine Cardiovascular Disease
DX: R07.89 Other chest pain (principal); I25.10 Atherosclerotic heart disease of native coronary artery without angina pectoris; I48.0 Paroxysmal atrial fibrillation; I10 Essential (primary) hypertension; E78.5 Hyperlipidemia, unspecified; F41.8 Other specified anxiety disorders; Z79.899 Other long term (current) drug therapy; Z95.5 Presence of coronary angioplasty implant and graft
CPT/HCPCS: 36415; 71010; 80048; 80053; 81225; 85027; 85347; 85610; 85730; 87081; 93005; 93454

== ENCOUNTER 2017-02-24 10:59 | Outpatient (RCR) | payer MEDICARE, OTHER | END 2017-02-25 | disposition home or self-care (01) | LOC: CR 10:59 | PROVIDERS: ATTEND Internal Medicine Cardiovascular Disease | DX: Z48.812 Encounter for surgical aftercare following surgery on the circulatory system (principal); Z95.5 Presence of coronary angioplasty implant and graft | CPT/HCPCS: 93798 ==

== ENCOUNTER 2017-02-27 13:50 | Outpatient (RCR) | payer MEDICARE, OTHER | END 2017-02-27 13:55 | disposition home or self-care (01) | LOC: CR 13:50 | PROVIDERS: ATTEND Internal Medicine Cardiovascular Disease | DX: Z48.812 Encounter for surgical aftercare following surgery on the circulatory system (principal); Z95.5 Presence of coronary angioplasty implant and graft | CPT/HCPCS: 93798 ==

== ENCOUNTER → 2018-07-25 | Outpatient (CLI) | payer MEDICARE, OTHER ==
[~2018-07-25] MED LIST changes: -AMIO200T2 PO; +AMIO200T4 PO; -FENO145T20 PO; +FENO145T37 PO
--- NOTE | 2018-07-25 11:23 | Diagnostic Imaging Report ---
CLINICAL INDICATION: Patient with back spasm/pain that goes up to neck. Patient has left hip pain/spasms. No history of lumbar surgery. EXAM: MRI of the lumbar spine performed without IV contrast. Sequences include sagittal T2, sagittal T1, sagittal STIR, coronal T1, and axial T2. COMPARISON: None. FINDINGS: There is roughly 25 degrees of levoscoliosis of the lumbar spine which is extrapolated on the coronal T2 sequence due to endplate measurements not on the same image/slice. There are five lumbar type vertebra. The T12 vertebra has short ribs. The visualized portions of the distal thoracic spinal cord, conus medullaris, and cauda equina nerve roots are unremarkable. The conus medullaris tip is seen at the lower L1 vertebral body level. There are degenerative spurs and facet arthropathy seen throughout the lumbar spine which is worse in the lower lumbar region. T11-T12: There is a diffuse disc bulge with [id number]-bv-nqvngy loss of intervertebral disc height and endplate irregularity. There is mild right neural foramen narrowing and mild impression upon the thecal sac anteriorly. There is no significant left neural foramen narrowing. T12-L1: There is a small right paracentral disc bulge. There is mild facet arthropathy. There is no significant central spinal canal or neural foramen narrowing. L1-L2: There is a minimal sized right paracentral disc spur. There is no significant central spinal canal or neural foramen narrowing. L2-L3: There is a diffuse disc bulge and moderate loss of intervertebral disc height. There is moderate bilateral facet arthropathy and ligament flavum buckling. There is mild-to- moderate central canal narrowing. There is severe right neural foramen narrowing and mild left neural foramen narrowing. L3-L4: There is severe bilateral facet arthropathy/hypertrophy and ligament flavum buckling. There is mild central canal narrowing. There is no significant neural foramen narrowing. There is a minimal sized right paracentral posterior disc bulge. L4-L5: There is 7 mm of grade 1 anterolisthesis of L4 and L5. There is a diffuse disc bulge and moderate loss of intervertebral disc height uncovering the posterior aspect of the disc. There is severe bilateral facet arthropathy/hypertrophy and small synovial cyst extending posterior into the left paraspinal soft tissue. There is mild right neural foramen narrowing and [id number]-pl-sfgdvp left neural foramen narrowing. There is no significant central canal narrowing. L5-S1: There is a diffuse disc bulge with severe loss of intervertebral disc height involving the left side of the endplates with hypertrophic disc spurs in the left anterior region. There is no significant central canal narrowing. There is mild left neural foramen narrowing. There is no significant right neural foramen narrowing. IMPRESSION: 1: There is multilevel lumbar spine degenerative disc disease with diffuse disc bulges and facet arthropathy, which is described in detail above. There is levoscoliosis of the lumbar spine. 2: There is grade 1 anterolisthesis of L4 and L5 with no pars defect seen. 3: There is [id number] L2-L3 central canal narrowing. Otherwise, there is no other significant central canal narrowing. 4: There is severe right L2-L3 neural foramen narrowing and [id number]-wb-eetlni left L4-L5 neural foramen narrowing. Dictated by: Dictated on workstation # [id number]
== END ==
LOC: RAD 09:45
PROVIDERS: ATTEND Nurse Practitioner Family
DX: M48.07 Spinal stenosis, lumbosacral region (principal); M51.37 Other intervertebral disc degeneration, lumbosacral region; M51.27 Other intervertebral disc displacement, lumbosacral region; M46.86 Other specified inflammatory spondylopathies, lumbar region; M41.86 Other forms of scoliosis, lumbar region; M43.16 Spondylolisthesis, lumbar region; M71.38 Other bursal cyst, other site
CPT/HCPCS: 72148

== ENCOUNTER 2018-10-09 13:42 | Outpatient (RCR) | payer MEDICARE, OTHER ==
[~2018-10-09 13:42] MED LIST changes: -FEXO-192 PO; +FEXO-222 PO; -RIVA20TA PO; +RIVA20TA2 PO
== END 2018-10-25 15:47 | disposition home or self-care (01) ==
PROVIDERS: ATTEND Orthopaedic Surgery Orthopaedic Surgery of the Spine
DX: M51.36 Other intervertebral disc degeneration, lumbar region (principal); M47.896 Other spondylosis, lumbar region

== ENCOUNTER → 2019-07-05 | Outpatient (CLI) | payer MEDICARE, OTHER | LOC: CARD 11:46 | PROVIDERS: ATTEND Internal Medicine Cardiovascular Disease | DX: I25.10 Atherosclerotic heart disease of native coronary artery without angina pectoris (principal); I11.9 Hypertensive heart disease without heart failure; I36.1 Nonrheumatic tricuspid (valve) insufficiency | CPT/HCPCS: 93306 ==

== ENCOUNTER → 2019-07-08 | Outpatient (CLI) | payer MEDICARE, OTHER ==
[~2019-07-08] VITALS: Ht 152 cm; Wt 62.0 kg
[~2019-07-08] MED LIST changes: +CATHETER FLUSH 10 ML SYR IV PRN; +REGADENOSON 0.4 MG/5 ML SYR (LEXISCAN) IV ONE
[2019-07-08 09:15] VITALS: BP 112/66
[2019-07-08 09:18] VITALS: BP 121/76
--- NOTE | 2019-07-08 14:13 | STRESS TEST ---
DATE OF SERVICE: 07/08/2019 LEXISCAN MYOVIEW STRESS TEST REPORT REFERRING PHYSICIAN: Dr. Crouch. Baseline heart rate is 88, baseline blood pressure 112/66. Baseline EKG is atrial fibrillation with no ischemic changes. In summary, the patient was injected with 10.95 mCi of technetium-99 Myoview and the resting images were obtained. Then, the patient received 0.4 mg of Lexiscan followed by 32.6 mCi of technetium-99 Myoview. Throughout the test, there were no EKG changes. The resting and stress images were reviewed and compared in the short axis, horizontal long axis, and vertical long axis views. Review of the images showed mild decreased uptake involving the mid to apical anterolateral wall with mild reversibility probably due to the extracardiac attenuation. SSS is 5, SDS is 5, TID value 1.05. On the gated images, the left ventricle appeared to be normal size with normal contractility. Calculated ejection fraction is 74%. CONCLUSION: 1. The patient tolerated Lexiscan well. 2. Extracardiac attenuation with breast attenuation affecting the quality of the images, typical female pattern with mild decreased uptake involving the mid to apical anterolateral wall with subtle reversibility, no significant ischemia or infarction was noted. 3. Normal left ventricular size with normal contractility. Calculated ejection fraction 74%, gated images are unreliable due to underlying atrial fibrillation. Job ID: [id number] DocumentID: [id number] Dictated Date: 07/08/2019 11:00:07 Coal Deliverer Date: 07/08/2019 14:13:32 Dictated By: HERMAN TEJEDA MD
== END ==
LOC: CARD 07:17
PROVIDERS: ATTEND Internal Medicine Cardiovascular Disease
DX: I25.10 Atherosclerotic heart disease of native coronary artery without angina pectoris (principal); I10 Essential (primary) hypertension; R00.2 Palpitations; R06.09 Other forms of dyspnea
CPT/HCPCS: 78452; 93017

== ENCOUNTER → 2019-11-04 | Outpatient (CLI) | payer MEDICARE, OTHER ==
[~2019-11-04] MED LIST changes: +ALPR0.254 PO; -CATHETER FLUSH 10 ML SYR IV PRN; +FENO145T26 PO; -FENO145T37 PO; +HYDR25TA4 PO; +LEVO50TA6 PO; +PANT40SU PO; -REGADENOSON 0.4 MG/5 ML SYR (LEXISCAN) IV ONE; +RIVA20TA PO
== END ==
LOC: LABNPT 07:13
PROVIDERS: ATTEND Internal Medicine Cardiovascular Disease
DX: Z01.818 Encounter for other preprocedural examination (principal); I48.0 Paroxysmal atrial fibrillation; Z20.828 Contact with and (suspected) exposure to other viral communicable diseases
CPT/HCPCS: 87635

== ENCOUNTER 2019-11-06 07:32 | Day surgery (SDC) | payer MEDICARE, OTHER ==
[~2019-11-06] VITALS: Ht 152 cm; Wt 67.0 kg
[2019-11-06] VITALS (9 sets, daily range): BP systolic 11–125; BP diastolic 61–82
[~2019-11-06 07:32] MED LIST changes: -ALPR0.254 PO; -HYDR25TA4 PO; -LEVO50TA6 PO; -PANT40SU PO; -RIVA20TA PO
[2019-11-06] MEDS ORDERED: NS IV 1000 ML 1,000 ML IV ONE (07:34)
[2019-11-06] MEDS ORDERED: LIDOCAINE 2% VISCOUS 15 ML UDC ONE (07:39)
[2019-11-06] MEDS ORDERED: NS IV 1000 ML 1,000 ML ONE (07:39)
[2019-11-06] MEDS ORDERED: LIDOCAINE 2% VISCOUS 15 ML UDC PO ONE (07:45)
[2019-11-06] MEDS ORDERED: MIDAZOLAM 5 MG/5 ML (VERSED) VIAL IV ONE (07:45)
[2019-11-06] MEDS ORDERED: fentaNYL INJECTION 100 MCG/2 ML AMP IV ONE (07:45)
[2019-11-06 08:12] LABS: HEMOGLOBIN 12.3 G/DL (11.5-16.0); MEAN PLATELET VOLUME 9.6 FL (7.4-10.4); WHITE BLOOD COUNT 2.9 10^3/uL (4.3-11.0)
--- NOTE | 2019-11-06 08:13 | Diagnostic Imaging Report ---
INDICATION: Chest pain, shortness of air. COMPARISON: 01/25/2017 TECHNIQUE: Single radiograph of the chest dated 11/06/2019. FINDINGS: Postsurgical changes of a median sternotomy. The cardiac silhouette is enlarged, though stable from the prior examination. Central pulmonary vascular congestion is again noted, similar to the prior examination. Vascular stents versus coronary artery calcifications overlying the left heart border. The lungs are clear of focal pulmonary opacity. No pleural effusion. No pneumothorax. Surgical clips in the right upper quadrant in the abdomen. No acute osseous abnormality. IMPRESSION: Central pulmonary vascular congestion without significant interstitial edema or pleural effusion. Dictated by: Dictated on workstation # [id number]
[2019-11-06] MEDS ORDERED: ALPR0.254 PO (08:15)
[2019-11-06] MEDS ORDERED: HYDR25TA4 PO (08:15)
[2019-11-06] MEDS ORDERED: PANT40SU PO (08:15)
[2019-11-06] MEDS ORDERED: LEVO50TA6 PO (08:15)
[2019-11-06] MEDS ORDERED: RIVA20TA PO (08:15)
--- NOTE | 2019-11-06 08:18 | Cardiac Procedure Note-CS/ASA ---
Pre-Procedure Note Pre-Op Procedure Note H&P Reviewed The H&P was reviewed, patient examined and no changes noted. Date H&P Reviewed: Nov 06, 2019 Time H&P Reviewed: 08:18 Conscious Sedation Pre-Proced Time 08:18 ASA Score 3 For ASA 3 and 4: Consider anesthesia and medical clearance. Also, for patients with a history of failed moderate sedation consider anesthesia. Airway Lungs Heart ASA score ASA 1: a normal healthy patient ASA 2: a patient with a mild systemic disease (mid diabetes, controlled hypertension, obesity x ASA 3: a patient with a severe systemic disease that limits activity (angina, COPD, prior Myocardial infarction) ASA 4: a patient with an incapacitating disease that is a constant threat to life (CHF, renal failure) ASA 5: a moribund patient not expected to survive 24 hrs. (ruptured aneurysm) ASA 6: a declared brain- patient whose organs are being harvested. For emergent operations, add the letter E after the classification Mallampati Classification Grade 3 Sedation Plan Analgesia, Amnesia, Plan communicated to team members, Discussed options with patient/fam, Discussed risks with patient/fam The patient is an appropriate candidate to undergo the planned procedure, sedation, and anesthesia. The patient immediately re-assessed prior to indication. HERMAN TEJEDA MD Nov 06, 2019 08:18
[2019-11-06 08:19] LABS: INR 2.4 (0.8-1.4); PROTHROMBIN TIME PATIENT 27.2 SEC (12.2-14.7)
[2019-11-06] MEDS ORDERED: MIDAZOLAM 5 MG/5 ML (VERSED) VIAL ONE (08:20)
[2019-11-06] MEDS ORDERED: proPOfol 200 MG/20 ML (DIPRIVAN) VIAL IV ONE (08:20)
[2019-11-06] MEDS ORDERED: fentaNYL INJECTION 100 MCG/2 ML AMP ONE (08:20)
[2019-11-06 08:42] LABS: ALANINE AMINOTRANSFERASE 14 U/L (0-55); ALBUMIN 3.8 GM/DL (3.2-4.5); ALKALINE PHOSPHATASE 84 U/L (40-136); BILIRUBIN,TOTAL 0.8 MG/DL (0.1-1.0); BUN/CREATININE RATIO 28; CARBON DIOXIDE 22 MMOL/L (21-32); CHLORIDE 102 MMOL/L (98-107); CREATININE SERUM 0.86 MG/DL (0.60-1.30); GFR ESTIMATED > 60; GLUCOSE 94 MG/DL (70-105); POTASSIUM 3.6 MMOL/L (3.6-5.0); SODIUM 137 MMOL/L (135-145); TRIGLYCERIDES 78 MG/DL (<150)
[2019-11-06 08:43] LABS: CHOLESTEROL 161 MG/DL (< 200); HDL CHOLESTEROL 67 MG/DL (40-60); VLDL CHOLESTEROL 16 MG/DL (5-40)
--- NOTE | 2019-11-06 09:15 | Cardioversion ---
Cardioversion PROCEDURE PHYSICIAN: Herman Solorzano DATE OF PROCEDURE: 11/06/19 DIRECT EXTERNAL ELECTRICAL CARDIOVERSION: Indications: Atrial Fibrillation with rapid ventricular rate Preoperative diagnoses: Atrial Fibrillation with rapid ventricular rate Postoperative diagnosis: Sinus rhythm, Successful Electrical Cardioversion History: Anesthesia: By Anesthesia services Complications: None Specimen: None Contrast: 0 Flouroscopy: none Procedure Details: The patient was brought the laboratory technical specialist after informed consent was taken, all the risks and complications were explained including the risk of stroke. Electrical cardioversion was carried out with anesthesia support with propofol. 200 joules of synchronized shock was delivered through external patches which promptly restored sinus rhythm. The patient tolerated the procedure well. Conclusions: Successful JULIET with electrical cardioversion Final Diagnosis: Paroxysmal atrial fibrillation Tachycardia Coronary artery disease Hypertension HERMAN SOLORZANO MD Nov 06, 2019 09:15
--- NOTE | 2019-11-06 09:20 | NUR ---
Patient to room 512. Post cardioversion. VSS. Patient is alert and oriented. Will continue to monitor.
[2019-11-06] MEDS ORDERED: AMIO200T4 PO (09:23)
--- NOTE | 2019-11-06 09:24 | Discharge Inst-Simple/Standard ---
Discharge Inst-Standard Reconcile Patient Problems Problems Reviewed?: Yes Discharge Medications New, Converted or Re-Newed RX: Transmitted to Pharmacy Patient Instructions/Follow Up Plan of Care/Instructions/FU: Appointment with Dr. Solorzano's office Activity as Tolerated: Yes Discharge Diet: No Restrictions Planned Outpatient Orders/Ref. Pneu Vac Indicated: Yes HERMAN SOLORZANO MD Nov 06, 2019 09:24
--- NOTE | 2019-11-06 09:59 | Anesthesia-General Post-Op ---
MAC Patient Condition Mental Status/LOC: Same as Preop Cardiovascular: Satisfactory Nausea/Vomiting: Absent Respiratory: Satisfactory Pain: Controlled Complications: Absent Post Op Complications Complications None Follow Up Care/Instructions Patient Instructions None needed. Anesthesiology Discharge Order Discharge Order Patient is doing well, no complaints, stable vital signs, no apparent adverse anesthesia problems. No complications reported per nursing. HANNY ROBIN CRNA Nov 06, 2019 09:59
--- NOTE | 2019-11-06 11:05 | NUR ---
discharge orders in. IV removed. NT walked with patient to front entrance after discharge instructions were gone over. VSS. Patient voices no complaints.
== END 2019-11-06 11:05 ==
LOC: CATH 07:32 → CSD 09:42 → CATH 11:05
PROVIDERS: ATTEND Internal Medicine Cardiovascular Disease
DX: I48.0 Paroxysmal atrial fibrillation (principal); I25.10 Atherosclerotic heart disease of native coronary artery without angina pectoris; I10 Essential (primary) hypertension; Q21.1 Atrial septal defect; E78.5 Hyperlipidemia, unspecified; K21.9 Gastro-esophageal reflux disease without esophagitis; F41.9 Anxiety disorder, unspecified; F32.9 Major depressive disorder, single episode, unspecified; Z90.49 Acquired absence of other specified parts of digestive tract; Z90.710 Acquired absence of both cervix and uterus; Z91.041 Radiographic dye allergy status; Z88.8 Allergy status to other drugs, medicaments and biological substances; Z79.899 Other long term (current) drug therapy; Z79.01 Long term (current) use of anticoagulants; Z79.82 Long term (current) use of aspirin; Z80.3 Family history of malignant neoplasm of breast; Z83.3 Family history of diabetes mellitus
CPT/HCPCS: 36415; 71045; 80053; 80061; 85027; 85610; 85730; 87081; 92960; 93005; 93312; 93320; 93325

== ENCOUNTER → 2019-12-02 | Outpatient (CLI) | payer MEDICARE, OTHER ==
[~2019-12-02] MED LIST changes: +ALPR0.254 PO; +HYDR25TA4 PO; +LEVO50TA6 PO; +PANT40SU PO; +PRAS10TA6 PO; +RIVA20TA PO
== END ==
LOC: LABNPT 08:00
PROVIDERS: ATTEND Internal Medicine Cardiovascular Disease
DX: Z01.818 Encounter for other preprocedural examination (principal); I48.0 Paroxysmal atrial fibrillation; Z20.828 Contact with and (suspected) exposure to other viral communicable diseases
CPT/HCPCS: 87635

== ENCOUNTER 2019-12-04 06:47 | Day surgery (SDC) | payer MEDICARE, OTHER ==
[~2019-12-04] VITALS: Ht 152 cm; Wt 64.0 kg
[2019-12-04] VITALS (11 sets, daily range): BP systolic 106–128; BP diastolic 55–101
[~2019-12-04 06:47] MED LIST changes: -PRAS10TA6 PO
--- OUTSIDE RECORDS SUMMARY | 2019-12-04 06:52 | XMS REPORT | CCD ---
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 Name Role Phone PP Unavailable CCM Unavailable Summary Purpose Interface Exchange Insurance Providers Payer name Policy type / Coverage type Covered republican ID Effective Begin Date Effective End Date RACHEL GBA [id number] 2017 Unknown [employer] [id number] Unknown Family history Mother Diagnosis Age At Onset Breast cancer Unknown Brother Diagnosis Age At Onset Arthritis Unknown Grandson Diagnosis Age At Onset Diabetes Unknown Social History Social History Element Codes Description Effective Dates Tobacco history SNOMED CT: 7256402 Former smoker quit 03/201301/22/2014 Employment Unknown Retir ed 10/13/2011 Marital status Unknown D ivorced 10/10/2011 Number of children Unknown 1 10/10/2011 Alcohol history Unknown occasionally drinks alcohol 1 drink per month with meals 012 Allergies, Adverse Reactions, Alerts Substance Reaction Codes Entered Date Inactivated Date Status * NO KNOWN DRUG BETTY RGIES Unknown 10/10/2011 No Inactive Date Active * NO KNOWN FOOD BETTY RGIES Unknown 01/22/2014 No Inactive Date Active Past Medical History Illness Codes Condition Status Onset Date Resolved Date Low back pain ICD-9: 724.2 ICD-10: M54.5 Active 07/12/2018 Unknown Abnormal results of thyroid function studies ICD-9: 246.9 ICD-10: R94.6 Active 12/15/2017 Unknown Abnormal weight gain ICD-9: 783.1 ICD-10: R63.5 Active 12/14/2017 Unknown Diarrhea, unspecified ICD-9: 787.91 ICD-10: R19.7 Active 12/14/2017 Unknown Generalized anxiety disorder ICD-9: 300.02 ICD-10: F41.1 Active 11/04/2015 Unknown Irritable bowel synd jahaira with diarrhea ICD-9: 564.1 ICD-10: K58.0 Active 12/14/2017 Unknown Paroxysmal atrial fi brillation ICD-9: 427.31 ICD-10: I48.0 Active 11/08/2016 Unknown Pneumonia, unspecifi ed organism ICD-9: 486 ICD-10: J18.9 Active 11/01/2016 Unknown Cough ICD-9: 786.2 ICD-10: R05 Active 11/01/2016 Unknown Rectal bleeding ICD-9: 569.3 Active 10/01/2014 Unknown Depression Unknown Active 01/22/2014 Unknow n Anxiety, generalized ICD-9: 300.02 Active 01/22/2014 Unknown Depression ICD-9: 311 Active 01/22/2014 Unknow n Bloody feces ICD-9: 578.1 Active 02/07/2013 Unknown VACCIN FOR INFLUENZA ICD-9: V04.81 Active 02/16/2012 Unknown Iliotibial band synd jahaira ICD-9: 728.89 Active Unknown ROUTINE GYNE EXAM ICD-9: V72.31 Active 10/31/2011 Unknown Osteoarthritis Unknown Active 10/13/2011 Unknow n INSOMNIA NOS ICD-9: 780.52 Active 10/13/2011 Unknown Osteoarthritis ICD-9: 715.90 Active 10/13/2011 Unknown PAIN IN LIMB ICD-9: 729.5 Active 10/13/2011 Unknown Problems Condition Codes Effectiv e Dates Condition Status Low back pain ICD-9: 724.2 ICD-10: M54.5 07/12/2018 Active Abnormal results of thyroid function studies ICD-9: 246.9 ICD-10: R94.6 12/15/2017 Active Abnormal weight gain ICD-9: 783.1 ICD-10: R63.5 12/14/2017 Active Diarrhea, unspecified ICD-9: 787.91 ICD-10: R19.7 12/14/2017 Active Generalized anxiety disorder ICD-9: 300.02 ICD-10: F41.1 11/04/2015 Active Irritable bowel synd jahaira with diarrhea ICD-9: 564.1 ICD-10: K58.0 12/14/2017 Active Paroxysmal atrial fi brillation ICD-9: 427.31 ICD-10: I48.0 11/08/2016 Active Pneumonia, unspecifi ed organism ICD-9: 486 ICD-10: J18.9 11/01/2016 Active Cough ICD-9: 786.2 ICD-10: R05 11/01/2016 Active Rectal bleeding ICD-9: 569.3 10/01/2014 Active Depression Unknown 01/22/2014 Active Anxiety, generalized ICD-9: 300.02 01/22/2014 Active Depression ICD-9: 311 01/22/2014 Active Bloody feces ICD-9: 578.1 02/07/2013 Active VACCIN FOR INFLUENZA ICD-9: V04.81 02/16/2012 Active Iliotibial band synd jahaira ICD-9: 728.89 01/24/2012 Active ROUTINE GYNE EXAM ICD-9: V72.31 10/31/2011 Active Osteoarthritis Unknown 10/13/2011 Active INSOMNIA NOS ICD-9: 780.52 10/13/2011 Active Osteoarthritis ICD-9: 715.90 10/13/2011 Active PAIN IN LIMB ICD-9: 729.5 10/13/2011 Active Medications Medication Codes Instruc tions Start Date Stop Date Sta tus Fill Instructions Cartia XT 180 mg cap clifford,extended release RxNorm: 450306 TAKE 1 CAPSULE BY ALEXANDER TH AT BEDTIME 01/31/2019 No Stop Date Active Xanax 0.25 mg tablet RxNorm: 709637 Tablet(s) TAKE 1/2 TO 1 (ONE-HALF TO ONE ) TABLET BY MOUTH 4 TIMES DAILY NEEDED 01/25/2019 No Stop Date Active Xanax 0.25 mg tablet RxNorm: 489263 Tablet(s) TAKE 1/2 TO 1 (ONE-HALF TO ONE ) TABLET BY MOUTH 4 TIMES DAILY NEEDED 11/27/2018 No Stop Date Active Cartia XT 180 mg cap clifford,extended release RxNorm: 564909 TAKE 1 CAPSULE BY ALEXANDER TH AT BEDTIME 11/05/2018 01/30/2019 Inactive Synthroid 75 mcg tablet RxNorm: 838096 TAKE 1 TABLET BY MOUTH ONCE DAILY 10/17/2018 No Stop Date Active Prozac 40 mg capsule RxNorm: 719589 TAKE 1 CAPSULE BY MOUTH ONCE DAILY 10/08/2018 No Stop Date Active Xanax 0.25 mg tablet RxNorm: 940017 Tablet(s) TAKE 1/2 TO 1 (ONE-HALF TO ONE ) TABLET BY MOUTH 4 TIMES DAILY NEEDED 08/28/2018 01/24/2019 Inactive Cartia XT 180 mg cap clifford,extended release RxNorm: 015748 TAKE 1 CAPSULE BY ALEXANDER AT BEDTIME 07/30/2018 11/04/2018 Inactive Prozac 40 mg capsule RxNorm: 866002 TAKE ONE CAPSULE BY MOUTH ONCE DAILY 06/08/2018 10/07/2018 In active Xanax 0.25 mg tablet RxNorm: 683256 TAKE 1/2 TO 1 (ONE-HALF TO ONE) TABLET B Y MOUTH 4 TIMES DAILY NEEDED 05/18/2018 11/26/2018 Inactive Synthroid 75 mcg tablet RxNorm: 083295 1 Tablet(s) PO daily 03/29/2018 09/24/2018 Inactive will call for refill when ready Xanax 0.25 mg tablet RxNorm: 833310 1/2 - 1 Tablet(s) PO QID as needed anxie ty attack 01/24/2018 05/18/2018 Inactive Synthroid 25 mcg tablet RxNorm: 344843 1 Tablet(s) PO daily 12/15/2017 03/28/2018 Inactive take on an empty stomach by itself Flagyl 500 mg tablet RxNorm: 234302 1 Tablet(s) PO TID 12/15/2017 12/14/2017 Inactive Flagyl 500 mg tablet RxNorm: 263759 1 Tablet(s) PO TID 12/15/2017 12/24/2017 Inactive Synthroid 25 mcg tablet RxNorm: 879023 1 Tablet(s) PO daily 12/15/2017 12/14/2017 Inactive Fish Oil 360 mg-1,20 0 mg capsule,delayed release RxNorm: 1 Capsule(s) PO BID 12/14/2017 No Stop Date Active Xifaxan 550 mg tablet RxNorm: 483684 1 Tablet(s) PO TID 12/14/2017 12/27/2017 Inactive Xanax 0.25 mg tablet RxNorm: 350451 1/2 - 1 Tablet(s) PO QID as needed anxie ty attack 12/01/2017 07/11/2018 Inactive Xanax 0.25 mg tablet RxNorm: 920775 1/2 - 1 Tablet(s) PO QID as needed anxie ty attack 08/22/2017 08/28/2017 Inactive Cartia XT 180 mg cap clifford,extended release RxNorm: 406114 Capsule(s) TAKE ONE C APSULE BY MOUTH ONCE DAILY AT BEDTIME 08/04/2017 07/29/2018 Inactive Prozac 40 mg capsule RxNorm: 594722 Capsule(s) TAKE ONE CAPSULE BY MOUTH ONC E DAILY 06/08/2017 06/07/2018 Inactive Prozac 40 mg capsule RxNorm: 055745 TAKE ONE CAPSULE BY MOUTH ONCE DAILY 05/30/2017 06/07/2017 In active Cartia XT 180 mg cap clifford,extended release RxNorm: 111945 TAKE ONE CAPSULE BY M OUTH ONCE DAILY AT BEDTIME 05/08/2017 08/03/2017 Inactive Prozac 40 mg capsule RxNorm: 905940 TAKE ONE CAPSULE BY MOUTH ONCE DAILY 02/03/2017 05/29/2017 In active Eliquis 5 mg tablet RxNorm: 5360310 1 Tablet(s) PO BID 11/09/2016 12/05/2016 Inactive Eliquis 5 mg tablet RxNorm: 9172570 1 Tablet(s) PO BID 11/09/2016 11/08/2016 Inactive Cartia XT 180 mg cap clifford,extended release RxNorm: 658781 1 Capsule(s) PO QHS 11/08/2016 05/06/2017 In active Prozac 40 mg capsule RxNorm: 843505 TAKE ONE CAPSULE BY MOUTH ONCE DAILY 11/07/2016 02/02/2017 In active Phenergan with Codei ne Syrup RxNorm: 2.5 Milliliter(s) PO QHS as needed 10/28/2016 07/11/2018 In active levofloxacin 500 mg tablet RxNorm: 585685 1 Tablet(s) PO daily 10/28/2016 11/06/2016 Inactive Prozac 40 mg capsule RxNorm: 212569 TAKE ONE CAPSULE BY MOUTH ONCE DAILY 08/01/2016 10/29/2016 In active Prozac 40 mg capsule RxNorm: 066406 1 Capsule(s) PO daily 11/05/2015 05/02/2016 Inactive [SAVINGS FOR UNINSURED PATIENTS -- BIN:0 84625, PCN: ASPROD1, Group: [id number], ID# [id number], Process claim through WordWatch, for questions: . THIS IS NOT INSURANCE.] Xanax 0.25 mg tablet RxNorm: 693712 1/2 - 1 Tablet(s) PO QID as needed anxie ty attack 11/02/2015 01/29/2016 Inactive Prozac 40 mg capsule RxNorm: 564405 Capsule(s) TAKE ONE CAPSULE BY MOUTH ONC E DAILY 08/12/2015 08/11/2015 Inactive NEEDS APPT Prozac 40 mg capsule RxNorm: 779378 TAKE ONE CAPSULE BY MOUTH ONCE DAILY 08/12/2015 07/31/2016 In active hydrocortisone aceta te 25 mg rectal suppository RxNorm: 1724016 1 Suppository RTL QH S 10/02/2014 07/11/2018 Inactive daily HS x 1 week, then twice weekly the n as needed Prozac 40 mg capsule RxNorm: 358743 TAKE ONE CAPSULE BY MOUTH ONCE DAILY 07/31/2014 01/26/2015 In active Prozac 40 mg capsule RxNorm: 365389 1 Capsule(s) PO daily 07/30/2014 02/24/2015 Inactive [SAVINGS FOR NON-COVERED DRUGS -- BIN:00 3585, PCN: ASPROD1, Group: XXXXX, ID# [id number], Questions: . THIS IS NOT INSURANCE.] Xanax 0.25 mg tablet RxNorm: 003450 1/2 - 1 Tablet(s) PO QID as needed anxie ty attack 01/22/2014 03/22/2014 Inactive Prozac 40 mg capsule RxNorm: 335215 1 Capsule(s) PO daily 01/22/2014 07/20/2014 Inactive [SAVINGS FOR UNINSURED PATIENTS -- BIN:0 46671, PCN: ASPROD1, Group: [id number], ID# [id number], Process claim through WordWatch, for questions: . THIS IS NOT INSURANCE.] Prozac 20 mg capsule RxNorm: 311541 1 Capsule(s) PO daily 08/08/2013 01/21/2014 Inactive Prozac 20 mg capsule RxNorm: 010292 1 Capsule(s) PO daily 07/19/2013 08/07/2013 Inactive Prozac 20 mg capsule RxNorm: 722067 1 Capsule(s) PO daily 02/12/2013 07/18/2013 Inactive Influenza Virus Vacc ine 0.5 mL RxNorm: IM 02/16/2012 02/16/2012 Inactive meloxicam 7.5 mg tablet RxNorm: 926004 1 Tablet(s) PO BID ONE PILL IN MORNING, IF PAIN IS UNCONTROLLED, MAY TAKE ONE EXTRA PILL IN THe PM do not take with ibuprofen or aleve 01/24/2012 02/15/2012 Inactive Aspirin Low Dose 81 mg tablet,delayed release RxNorm: 250636 1 Tablet(s) PO daily No Start Date Active Tylenol 500 mg RxNorm: 1 Tablet(s) PO BID No Start Date Active Repatha SureClick 14 0 mg/mL subcutaneous pen injector RxNorm: 6870648 1 Milliliter(s) SQ Q2 weeks No Start Date Active amiodarone 200 mg ta blet RxNorm: 791947 1/2 Tablet(s) PO daily No Start Date Active melatonin 10 mg tablet RxNorm: 1447433 1 Tablet(s) PO QHS No Start Date Active pantoprazole 40 mg t ablet,delayed release RxNorm: 281548 1 Tablet(s) PO daily No Start Date Active isosorbide mononitra te ER 30 mg tablet,extended release 24 hr RxNorm: 426414 1 Tablet(s) PO daily No Start Date Active melatonin 3 mg Tab RxNorm: 409870 2 Tablet(s) PO QHS No Start Date 12/13/2017 Inactive Xarelto 20 mg tablet RxNorm: 9745233 1 Tablet(s) PO QPM No Start Date 12/13/2017 Inactive Tylenol 8 Hour 650 m g tablet,extended release RxNorm: 6256436 1 Tablet(s) PO BID No Start Date 07/12/2018 Inactive Calcium 600 + D(3) 6 00 mg (1,500 mg)-400 unit Tab RxNorm: 905306 1 Tablet(s) PO QPM No Start Date 12/13/2017 Inactive prasugrel 10 mg tablet RxNorm: 333516 1 Tablet(s) PO daily No Start Date 07/11/2018 Inactive Fish Oil 360 mg-1,20 0 mg capsule,delayed release RxNorm: 1 Capsule(s) PO daily No Start Date 12/13/2017 Inactive PreserVision AREDS 2 oral RxNorm: 0993182 oral No Start Date 07/11/2018 Inactive Prozac 20 mg capsule RxNorm: 309949 1 Capsule(s) PO daily No Start Date 02/11/2013 Inactive Breo Ellipta inhalation RxNorm: 7526708 inhalation No Start Date 12/13/2017 Inactive fenofibrate nanocrys tallized 145 mg tablet RxNorm: 430979 Tablet(s) PO daily No Start Date 10/31/2016 Inactive Centrum Silver Ultra Women's Tab RxNorm: 1 Tablet(s) PO QHS No Start Date 10/31/2016 Inactive Cartia XT 120 mg cap clifford,extended release RxNorm: 753693 1 Capsule(s) PO QHS No Start Date 11/07/2016 Inactive Vision oral RxNorm: oral No Start Date 10/31 Inactive Medication Administered Medication Codes Instruc tions Start Date Status Influenza Virus Vaccine 0.5 mL RxNorm: 02/16/2012 No longer Active Immunizations Vaccine Codes Date Status Influenza CVX: 141 02/15 completed Influenza CVX: 141 03/29 completed Pneumococcal (Adult) CVX: 33 03/29/2010 completed Tetanus/Diptheria CVX: 09 05/29/2009 completed Assessments Condition Codes Effectiv e Dates Low back pain ICD-10: M54.5 ICD-9: 724.2 07/12/2018 Abnormal results of thyroid function studies ICD-10: R94.6 ICD-9: 246.9 12/15/2017 Irritable bowel syndrome with diarrhea ICD-10: K58.0 ICD-9: 564.1 12/14/2017 Abnormal weight gain ICD-10: R63.5 ICD-9: 783.1 12/14/2017 Paroxysmal atrial fibrillation ICD-1 0: I48.0 ICD-9: 427.31 12/14/2017 Pneumonia, unspecified organism ICD- 10: J18.9 ICD-9: 486 11/08/2016 Cough ICD-10: R05 ICD-9: 786.2 11/01/2016 Generalized anxiety disorder ICD-10: F41.1 ICD-9: 300.02 11/05/2015 Rectal bleeding ICD-9: 569.3 10/02/2014 Depression ICD-9: 311 Anxiety, generalized ICD-9: 300.02 01/22/2014 Bloody feces ICD-9: 578.1 02/07/2013 MUSCLE/LIGAMENT DIS NEC ICD-9: 728.89 02/16/2012 OSTEOARTH NOS-UNSPEC ICD-9: 715.90 02/16/2012 VACCIN FOR INFLUENZA ICD-9: V04.81 02/16/2012 PAIN IN LIMB ICD-9: 729.5 01/24/2012 ROUTINE GYNE EXAM ICD-9: V72.31 10/31/2011 INSOMNIA NOS ICD-9: 780.52 10/13/2011 Reason For Visit Reason For Visit Effective Dates Notes back pain 07/12/2018 arrhythmia 12/14/2017 hypertension 12/06/2016 cough 11/08/2016 Urgent Care = pneumonia cough 11/01/2016 Urgent Care = pneumonia anxiety 11/05/2015 hemorrhoids 10/02/2014 depression 01/22/2014 hemorrhoids 02/07/2013 hip pain 02/16/2012 --Im proved hip pain 01/24/2012 well woman exam (65+ years) 10/31/2011 foot pain 10/13/2011 Results Observation Observation Code Item Item Code Result Date Free T4 [id number] FREE T4 1.12 ng/dL 09/28/2018 Tsh Ord6 TSH (3rd IS) 3.54 uIU/mL 09/28/2018 Tsh Ord6 TSH (3rd IS) 4.90 uIU/mL 06/25/2018 Free T4 Djj646 FREE T4 1.15 ng/dL 06/25/2018 Free T4 Ckn892 FREE T4 0.52 ng/dL 03/22/2018 Tsh Ord6 TSH (3rd IS) 42.22 uIU/mL 03/22/2018 Cbc With Differential Ord2 WBC 2.55 K/ul 12/15/2017 Cbc With Differential Ord2 RBC 3.80 M/ul 12/15/2017 Cbc With Differential Ord2 HGB 12.7 g/dl 12/15/2017 Cbc With Differential Ord2 HCT 38.2 % 12/15/2017 Cbc With Differential Ord2 Neut% 48.2 % 12/15/2017 Cbc With Differential Ord2 MCV 100.5 fl 12/15/2017 Cbc With Differential Ord2 Lymph% 30.6 % 12/15/2017 Cbc With Differential Ord2 MCH 33.4 pg 12/15/2017 Cbc With Differential Ord2 Sebastian% 17.3 % 12/15/2017 Cbc With Differential Ord2 MCHC 33.2 pg 12/15/2017 Cbc With Differential Ord2 Eos% 3.1 % 12/15/2017 Cbc With Differential Ord2 PLT 235 K/ul 12/15/2017 Cbc With Differential Ord2 Baso% 0.8 % 12/15/2017 Cbc With Differential Ord2 RDW 13.6 % 12/15/2017 Cbc With Differential Ord2 Neut ABS# 1.23 K/ul 12/15/2017 Cbc With Differential Ord2 Lymph ABS# 0.78 K/ul 12/15/2017 Cbc With Differential Ord2 Sebastian ABS# 0.4 K/ul 12/15/2017 Cbc With Differential Ord2 Eos ABS# 0.1 K/ul 12/15/2017 Cbc With Differential Ord2 Baso ABS# 0.0 K/ul 12/15/2017 Free T4 [id number] FREE T4 0.34 ng/dL 12/15/2017 Test(s) Not Perfromed [id number] Test(s) Not Performed Test(s) Not Performed. 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 12/14/2017 Tsh Ord6 TSH (3rd IS) 48.79 uIU/mL 12/14/2017 Comp Metabolic Sfc487 NA 137 mEq/L 12/14/2017 Comp Metabolic Uhd455 K 4.3 mEq/L 12/14/2017 Comp Metabolic Tqf808 CL 101 mEq/L 12/14/2017 Comp Metabolic Gnm173 CO2 29.0 mEq/L 12/14/[address] AN ION GAP 11 12/14/2017 Comp Metabolic Gnp226 GL UCOSE 81 mg/dL 12/14/2017 Comp Metabolic Tdj584 Cr eat 0.7 mg/dL 12/14/2017 Comp Metabolic Llp029 eG FR 86 ml/min/1.73m2 12/14 Comp Metabolic Cdv369 BUN 14 mg/dL 12/14/2017 Comp Metabolic Cqa354 B/ C Ratio 19.7 Ratio 12/14/2017 Comp Metabolic Rnh912 CA LCIUM 9.2 mg/dL 12/14/2017 Comp Metabolic Tms686 AL K PHOS 112 U/L 12/14/2017 Comp Metabolic Vyu766 T(SGOT) 25 U/L 12/14/2017 Comp Metabolic Zlv702 AL T(SGPT) 20 U/L 12/14/2017 Comp Metabolic Kvk511 BI LI T 0.8 mg/dL 12/14/2017 Comp Metabolic Scm617 AL BUMIN 4.1 g/dL 12/14/2017 Comp Metabolic Sri150 TP RO 6.9 g/dL 12/14/2017 Comp Metabolic Kdc559 GL OB 2.9 g/dL 12/14/2017 Comp Metabolic Dgu592 A/ G Ratio 1.4 Ratio 12/14/2017 Comp Metabolic Zbw121 Os mo 273 mOsmo 12/14/2017 LIPID GRP HDL TE ST 70 MG/DL 01/23/2014 LIPID GRP TRIG 134 MG/DL 01/23/2014 LIPID GRP TEST L DL 117 MG/DL 01/23/2014 LIPID GRP CHOL 214 MG/DL 01/23/2014 LIPID GRP 2074334 RCHOL/ HDL 3.06 RATIO 01/23/2014 LIPID GRP NON-HD L CH 144 MG/DL 01/23/2014 TSH 2608840 TSH 1.784 uIU/ML 01/23/2014 CBC 7583675 WBC 4.7 10e9/L 01/23/2014 CBC 5516615 RBC 4.10 10e12/L 01/23/2014 CBC 2344310 HGB 13.3 g/dL 01/23/2014 CBC 0372934 HCT DET 39.2 % 01/23/2014 CBC 3137615 MCV 95.6 fL 01/23/2014 CBC 4519012 MCH 32.4 pg 01/23/2014 CBC 8678339 MCHC 33.9 g/dL 01/23/2014 CBC 6282080 PLT 232 10e9/L 01/23/2014 CBC 2592285 MPV 10.9 fL 01/23/2014 CBC 3946398 DORON % 57.4 % 01/23/2014 CBC 8991395 LY % 28.0 % 01/23/2014 CBC 4233808 MON % 12.9 % 01/23/2014 CBC 7562227 EOS % 1.3 % 01/23/2014 CBC 7208400 BASO % 0.4 % 01/23/2014 CBC 8666652 RDW 12.1 % 01/23/2014 CBC 1115702 ABS DORON 2.70 10e9/L 01/23/2014 CBC 3859031 ABS LYMPH 1.32 10e9/L 01/23/2014 CBC 7274946 ABS MONO 0.61 10e9/L 01/23/2014 CBC 6005394 ABS EOS 0.06 10e9/L 01/23/2014 CBC 3634281 ABS BASO 0.02 10e9/L 01/23/2014 CBC 9796229 RDW-SD 41.2 fL 01/23/2014 CHEM 14 6502604 AST 18 U/L 01/23/2014 CHEM 14 5231393 ALT 13 IU/L 01/23/2014 CHEM 14 2903032 BUN 16 MG/DL 01/23/2014 CHEM 14 0876553 ALBUMIN 4.2 GM/DL 01/23/2014 CHEM 14 5323925 CHLORIDE 105 MMOL/L 01/23/2014 CHEM 14 1401852 BILI TOT 0.7 MG/DL 01/23/2014 CHEM 14 8659677 ALK PHOS 61 U/L 01/23/2014 CHEM 14 8754048 SODIUM 138 MMOL/L 01/23/2014 CHEM 14 3391201 CREATINI NE 0.65 MG/DL 01/23/2014 CHEM 14 4687091 CALCIUM 9.5 MG/DL 01/23/2014 CHEM 14 9805716 POTASSIUM 4.4 MMOL/L 01/23/2014 CHEM 14 4792094 PROT TOT 6.8 GM/DL 01/23/2014 CHEM 14 1135414 GLUCOSE 93 MG/DL 01/23/2014 CHEM 14 3259168 BICARB 28 MMOL/L 01/23/2014 CHEM 14 4017859 ANION GAP 5 MEQ/L 01/23/2014 GFR CALC 2619500 GFR AA >60 ML/MIN 01/23/2014 GFR CALC 0296042 GFR NON -AA >60 ML/MIN 01/23/2014 URIC ACID 3099219 URIC A KYLE 5.7 MG/DL 10/13/2011 CHEM 14 6139595 AST 19 U/L 10/13/2011 CHEM 14 6151548 ALT 16 U/L 10/13/2011 CHEM 14 9475993 BUN 21 MG/DL 10/13/2011 CHEM 14 4523844 ALBUMIN 4.2 GM/DL 10/13/2011 CHEM 14 7661877 CHLORIDE 103 MMOL/L 10/13/2011 CHEM 14 9155175 BILI TOT 0.6 MG/DL 10/13/2011 CHEM 14 4228790 ALK PHOS 71 U/L 10/13/2011 CHEM 14 1719929 SODIUM 141 MMOL/L 10/13/2011 CHEM 14 0216420 CREATINI NE 0.65 MG/DL 10/13/2011 CHEM 14 2458652 CALCIUM 9.3 MG/DL 10/13/2011 CHEM 14 6999049 POTASSIUM 4.2 MMOL/L 10/13/2011 CHEM 14 3321883 PROT TOT 6.8 GM/DL 10/13/2011 CHEM 14 8238280 GLUCOSE 69 MG/DL 10/13/2011 CHEM 14 8756885 BICARB 27 MMOL/L 10/13/2011 CHEM 14 0256574 ANION GAP 11 MMOL/L 10/13/2011 CBC 8293738 WBC 6.1 10e9/L 10/13/2011 CBC 3910041 RBC 4.11 10e12/L 10/13/2011 CBC 8087922 HGB 13.3 g/dL 10/13/2011 CBC 7077035 HCT DET 39.6 % 10/13/2011 CBC 3468109 MCV 96.4 fL 10/13/2011 CBC 0249184 MCH 32.4 pg 10/13/2011 CBC 2483060 MCHC 33.6 g/dL 10/13/2011 CBC 5927693 PLT 238 10e9/L 10/13/2011 CBC 4863419 MPV 11.7 fL 10/13/2011 CBC 6888444 DORON % 50.2 % 10/13/2011 CBC 8878357 LY % 35.6 % 10/13/2011 CBC 8499765 MON % 12.7 % 10/13/2011 CBC 9882784 EOS % 1.2 % 10/13/2011 CBC 6031217 BASO % 0.3 % 10/13/2011 CBC 3959506 RDW 12.3 % 10/13/2011 CBC 7790984 ABS DORON 3.06 10e9/L 10/13/2011 CBC 2558502 ABS LYMPH 2.17 10e9/L 10/13/2011 CBC 1692070 ABS MONO 0.77 10e9/L 10/13/2011 CBC 7512106 ABS EOS 0.07 10e9/L 10/13/2011 CBC 3559615 ABS BASO 0.02 10e9/L 10/13/2011 CBC 3713180 RDW-SD 42.3 fL 10/13/2011 GFR CALC 5060459 GFR AA >60 ML/MIN 10/13/2011 GFR CALC 9888426 GFR NON -AA >60 ML/MIN 10/13/2011 ESR [id number] ESR 14 MM/HR 10/13/2011 Review of Systems System Result Effective Dates Constitutional No recent illness 07/12/2018 Constitutional No anorexia 07/12/2018 Constitutional No night sweats 07/12/2018 Constitutional No chills 07/12/2018 Constitutional No diaphoresis 07/12/2018 Constitutional fatigue 0 07/12/2018 Constitutional No fever 07/12/2018 Constitutional No insomnia 07/12/2018 Constitutional weight gain 07/12/2018 Constitutional No weight loss 07/12/2018 Constitutional No malaise 07/12/2018 Musculoskeletal back pain 07/12/2018 Genitourinary/Nephrology No dysuria 07/12/2018 Gastrointestinal No abdominal pain 07/12/2018 Gastrointestinal No vomiting 07/12/2018 Gastrointestinal No nausea 07/12/2018 Dermatologic No rash Neurologic No alteration of consciousness 07/12/2018 Respiratory No cough Cardiovascular No chest pain/pressure 07/12/2018 Ears/Nose/Throat/Neck No dizziness 07/12/2018 Eyes No eye discharge Eyes No eye erythema Constitutional No insomnia 12/14/2017 Constitutional weight gain 12/14/2017 Musculoskeletal back pain 12/14/2017 Musculoskeletal joint complaint 12/14/2017 Dermatologic laceration 12/14/2017 Eyes No eye discharge Eyes No eye erythema Ears/Nose/Throat/Neck No dizziness 12/14/2017 Ears/Nose/Throat/Neck No headache 12/14/2017 Constitutional No recent illness 12/14/2017 Constitutional No anorexia 12/14/2017 Constitutional No night sweats 12/14/2017 Constitutional No chills 12/14/2017 Constitutional No diaphoresis 12/14/2017 Constitutional fatigue 0 12/14/2017 Constitutional No fever 12/14/2017 Constitutional malaise 0 12/14/2017 Constitutional No weight loss 12/14/2017 Cardiovascular No chest pain/pressure 12/14/2017 Respiratory No daytime hypersomnolence 12/14/2017 Gastrointestinal No constipation 12/14/2017 Gastrointestinal diarrhea 12/14/2017 Gastrointestinal No abdominal pain 12/14/2017 Genitourinary/Nephrology No dysuria 12/14/2017 Neurologic No alteration of consciousness 12/14/2017 Constitutional No recent illness 12/06/2016 Constitutional No chills 12/06/2016 Constitutional No fatigue 12/06/2016 Constitutional No fever 12/06/2016 Eyes No eye discharge Eyes No eye erythema 03/2017 Ears/Nose/Throat/Neck No dizziness 12/06/2016 Ears/Nose/Throat/Neck No headache 12/06/2016 Cardiovascular No chest pain/pressure 12/06/2016 Cardiovascular No edema 12/06/2016 Cardiovascular No fatigue 12/06/2016 Respiratory No chest congestion 12/06/2016 Respiratory No chest tightness 12/06/2016 Respiratory No cough 03/2017 Gastrointestinal No abdominal pain 12/06/2016 Gastrointestinal No constipation 12/06/2016 Gastrointestinal No diarrhea 12/06/2016 Genitourinary/Nephrology No pelvic pain 12/06/2016 Genitourinary/Nephrology No urinary urgenc y 12/06/2016 Genitourinary/Nephrology No urinary frequency 12/06/2016 Musculoskeletal No joint complaint 12/06/2016 Dermatologic No rash 03/2017 Dermatologic No sores Neurologic No ataxia 03/2017 Neurologic No dizziness 12/06/2016 Neurologic No headache 0 12/06/2016 Neurologic No memory loss 12/06/2016 Psychiatric anxiety 11/26 Cardiovascular arrhythmia 12/06/2016 Constitutional recent illness 11/08/2016 Constitutional No anorexia 11/08/2016 Constitutional No night sweats 11/08/2016 Constitutional No chills 11/08/2016 Constitutional No diaphoresis 11/08/2016 Constitutional No fatigue 11/08/2016 Constitutional No fever 11/08/2016 Constitutional No insomnia 11/08/2016 Constitutional No malaise 11/08/2016 Constitutional No weight loss 11/08/2016 Constitutional No weight gain 11/08/2016 Eyes No eye discharge Eyes No eye erythema Ears/Nose/Throat/Neck No dizziness 11/08/2016 Ears/Nose/Throat/Neck No headache 11/08/2016 Cardiovascular No chest pain/pressure 11/08/2016 Cardiovascular No dyspnea 11/08/2016 Cardiovascular No edema 11/08/2016 Respiratory productive sputum 11/08/2016 Respiratory cough 2016 Gastrointestinal No abdominal pain 11/08/2016 Gastrointestinal No constipation 11/08/2016 Gastrointestinal No diarrhea 11/08/2016 Genitourinary/Nephrology No dysuria 11/08/2016 Musculoskeletal No joint complaint 11/08/2016 Dermatologic No rash Neurologic No alteration of consciousness 11/08/2016 Psychiatric No anxiety 0 11/08/2016 Constitutional recent illness 11/01/2016 Constitutional No anorexia 11/01/2016 Constitutional No chills 11/01/2016 Constitutional No night sweats 11/01/2016 Constitutional No diaphoresis 11/01/2016 Constitutional No fever 11/01/2016 Constitutional No fatigue 11/01/2016 Constitutional No insomnia 11/01/2016 Constitutional No malaise 11/01/2016 Constitutional No weight loss 11/01/2016 Constitutional No weight gain 11/01/2016 Eyes No eye discharge Eyes No eye erythema 10/2016 Ears/Nose/Throat/Neck No dizziness 11/01/2016 Ears/Nose/Throat/Neck No headache 11/01/2016 Cardiovascular No chest pain/pressure 11/01/2016 Cardiovascular No dyspnea 11/01/2016 Cardiovascular No edema 11/01/2016 Respiratory productive sputum 11/01/2016 Respiratory cough 2016 Gastrointestinal No abdominal pain 11/01/2016 Gastrointestinal No diarrhea 11/01/2016 Gastrointestinal No constipation 11/01/2016 Genitourinary/Nephrology No dysuria 11/01/2016 Musculoskeletal No joint complaint 11/01/2016 Dermatologic No rash 10/2016 Neurologic No alteration of consciousness 11/01/2016 Constitutional No recent illness 11/05/2015 Constitutional No chills 11/05/2015 Constitutional No fatigue 11/05/2015 Constitutional No fever 11/05/2015 Ears/Nose/Throat/Neck No dizziness 11/05/2015 Ears/Nose/Throat/Neck No headache 11/05/2015 Cardiovascular No chest pain/pressure 11/05/2015 Cardiovascular No edema 11/05/2015 Cardiovascular No fatigue 11/05/2015 Respiratory No chest congestion 11/05/2015 Respiratory No chest tightness 11/05/2015 Respiratory No cough 01/2016 Gastrointestinal No abdominal pain 11/05/2015 Gastrointestinal No constipation 11/05/2015 Gastrointestinal No diarrhea 11/05/2015 Genitourinary/Nephrology No pelvic pain 11/05/2015 Genitourinary/Nephrology No urinary urgenc y 11/05/2015 Genitourinary/Nephrology No urinary frequency 11/05/2015 Dermatologic No rash 01/2016 Dermatologic No sores Neurologic No ataxia 01/2016 Neurologic No dizziness 11/05/2015 Neurologic No headache 0 11/05/2015 Neurologic No memory loss 11/05/2015 Psychiatric anxiety 06/0 01/2016 Musculoskeletal No joint complaint 11/05/2015 Eyes No eye discharge Eyes No eye erythema 01/2016 Constitutional No recent illness 10/02/2014 Constitutional No anorexia 10/02/2014 Constitutional No night sweats 10/02/2014 Constitutional No chills 10/02/2014 Constitutional No fever 10/02/2014 Constitutional No fatigue 10/02/2014 Constitutional No diaphoresis 10/02/2014 Constitutional No insomnia 10/02/2014 Constitutional No malaise 10/02/2014 Constitutional No weight loss 10/02/2014 Constitutional No weight gain 10/02/2014 Ears/Nose/Throat/Neck No dental pain 10/02/2014 Ears/Nose/Throat/Neck No dizziness 10/02/2014 Ears/Nose/Throat/Neck No dysphagia 10/02/2014 Ears/Nose/Throat/Neck No headache 10/02/2014 Ears/Nose/Throat/Neck No hearing loss 10/02/2014 Ears/Nose/Throat/Neck No nasal allergies 10/02/2014 Ears/Nose/Throat/Neck No sore throat 10/02/2014 Ears/Nose/Throat/Neck No postnasal drip 10/02/2014 Ears/Nose/Throat/Neck No sinus congestion 10/02/2014 Cardiovascular No chest pain/pressure 10/02/2014 Respiratory No chest congestion 10/02/2014 Respiratory No cough 11/2014 Respiratory No dyspnea 0 10/02/2014 Genitourinary/Nephrology No dysuria 10/02/2014 Dermatologic No rash 11/2014 Dermatologic No sores Neurologic No dizziness 10/02/2014 Neurologic No headache 0 10/02/2014 Constitutional No recent illness 01/22/2014 Constitutional No chills 01/22/2014 Constitutional No fatigue 01/22/2014 Constitutional No fever 01/22/2014 Ears/Nose/Throat/Neck No dizziness 01/22/2014 Ears/Nose/Throat/Neck No headache 01/22/2014 Cardiovascular No chest pain/pressure 01/22/2014 Cardiovascular No edema 01/22/2014 Cardiovascular No fatigue 01/22/2014 Respiratory No chest congestion 01/22/2014 Respiratory No chest tightness 01/22/2014 Respiratory cigarette smoking 01/22/2014 Respiratory No cough Gastrointestinal No abdominal pain 01/22/2014 Gastrointestinal No constipation 01/22/2014 Gastrointestinal No diarrhea 01/22/2014 Genitourinary/Nephrology No pelvic pain 01/22/2014 Genitourinary/Nephrology No urinary urgenc y 01/22/2014 Genitourinary/Nephrology No urinary frequency 01/22/2014 Dermatologic No rash Dermatologic No sores Neurologic No ataxia Neurologic No dizziness 01/22/2014 Neurologic No headache 0 01/22/2014 Neurologic No memory loss 01/22/2014 Psychiatric No anxiety 0 01/22/2014 Constitutional No chills 02/07/2013 Constitutional No fever 02/07/2013 Constitutional No weight loss 02/07/2013 Constitutional No anorexia 02/07/2013 Cardiovascular No chest pain/pressure 02/07/2013 Respiratory No cough 04/2013 Respiratory No dyspnea 0 02/07/2013 Genitourinary/Nephrology No dysuria 02/07/2013 Dermatologic No rash 04/2013 Dermatologic No sores Neurologic No headache 0 02/07/2013 Neurologic No dizziness 02/07/2013 Ears/Nose/Throat/Neck No dental pain 02/07/2013 Ears/Nose/Throat/Neck No dizziness 02/07/2013 Ears/Nose/Throat/Neck No dysphagia 02/07/2013 Ears/Nose/Throat/Neck No headache 02/07/2013 Ears/Nose/Throat/Neck No hearing loss 02/07/2013 Ears/Nose/Throat/Neck No nasal allergies 02/07/2013 Ears/Nose/Throat/Neck No sore throat 02/07/2013 Ears/Nose/Throat/Neck No postnasal drip 02/07/2013 Ears/Nose/Throat/Neck No sinus congestion 02/07/2013 Respiratory No chest congestion 02/07/2013 Constitutional No recent illness 02/16/2012 Constitutional No chills 02/16/2012 Constitutional No fatigue 02/16/2012 Constitutional No fever 02/16/2012 Ears/Nose/Throat/Neck No dizziness 02/16/2012 Ears/Nose/Throat/Neck No headache 02/16/2012 Cardiovascular No chest pain/pressure 02/16/2012 Cardiovascular No edema 02/16/2012 Cardiovascular No fatigue 02/16/2012 Respiratory No chest congestion 02/16/2012 Respiratory No chest tightness 02/16/2012 Respiratory cigarette smoking 02/16/2012 Respiratory No cough Gastrointestinal No abdominal pain 02/16/2012 Gastrointestinal No constipation 02/16/2012 Gastrointestinal No diarrhea 02/16/2012 Genitourinary/Nephrology No pelvic pain 02/16/2012 Genitourinary/Nephrology No urinary urgenc y 02/16/2012 Genitourinary/Nephrology No urinary frequency 02/16/2012 Dermatologic No rash Dermatologic No sores Neurologic No ataxia Neurologic No dizziness 02/16/2012 Neurologic No headache 0 02/16/2012 Neurologic No memory loss 02/16/2012 Psychiatric No anxiety 0 02/16/2012 Psychiatric depression 0 02/16/2012 Constitutional No recent illness 01/24/2012 Constitutional No chills 01/24/2012 Constitutional No fatigue 01/24/2012 Constitutional No fever 01/24/2012 Constitutional insomnia 01/24/2012 Ears/Nose/Throat/Neck No dizziness 01/24/2012 Ears/Nose/Throat/Neck No headache 01/24/2012 Cardiovascular No chest pain/pressure 01/24/2012 Cardiovascular No edema 01/24/2012 Cardiovascular No fatigue 01/24/2012 Respiratory No chest congestion 01/24/2012 Respiratory No chest tightness 01/24/2012 Respiratory cigarette smoking 01/24/2012 Respiratory No cough Gastrointestinal No abdominal pain 01/24/2012 Gastrointestinal No constipation 01/24/2012 Gastrointestinal No diarrhea 01/24/2012 Genitourinary/Nephrology No pelvic pain 01/24/2012 Genitourinary/Nephrology No urinary urgenc y 01/24/2012 Genitourinary/Nephrology No urinary frequency 01/24/2012 Dermatologic No rash Dermatologic No sores Neurologic No ataxia Neurologic No dizziness 01/24/2012 Neurologic No headache 0 01/24/2012 Neurologic No memory loss 01/24/2012 Psychiatric No anxiety 0 01/24/2012 Psychiatric depression 0 01/24/2012 Constitutional No recent illness 10/31/2011 Constitutional No chills 10/31/2011 Constitutional No fatigue 10/31/2011 Constitutional No fever 10/31/2011 Constitutional insomnia 10/31/2011 Eyes No eye pain 012 Eyes No vision change Ears/Nose/Throat/Neck No dizziness 10/31/2011 Ears/Nose/Throat/Neck No headache 10/31/2011 Cardiovascular No chest pain/pressure 10/31/2011 Cardiovascular No edema 10/31/2011 Cardiovascular No fatigue 10/31/2011 Respiratory No chest congestion 10/31/2011 Respiratory No chest tightness 10/31/2011 Respiratory cigarette smoking 10/31/2011 Respiratory No cough 08/2011 Gastrointestinal No abdominal pain 10/31/2011 Gastrointestinal No constipation 10/31/2011 Gastrointestinal No diarrhea 10/31/2011 Genitourinary/Nephrology No breast c omplaint 10/31/2011 Genitourinary/Nephrology No dysuria 10/31/2011 Genitourinary/Nephrology No pelvic pain 10/31/2011 Genitourinary/Nephrology No urinary urgenc y 10/31/2011 Genitourinary/Nephrology No urinary frequency 10/31/2011 Dermatologic No rash 08/2011 Dermatologic No sores Neurologic No ataxia 08/2011 Neurologic No dizziness 10/31/2011 Neurologic No headache 0 10/31/2011 Neurologic No memory loss 10/31/2011 Psychiatric No anxiety 0 10/31/2011 Psychiatric depression 0 10/31/2011 Constitutional No recent illness 10/13/2011 Constitutional No chills 10/13/2011 Constitutional No fatigue 10/13/2011 Constitutional No fever 10/13/2011 Constitutional insomnia 10/13/2011 Eyes No eye pain 012 Eyes No vision change Ears/Nose/Throat/Neck No dizziness 10/13/2011 Ears/Nose/Throat/Neck No headache 10/13/2011 Cardiovascular No chest pain/pressure 10/13/2011 Cardiovascular No edema 10/13/2011 Cardiovascular No fatigue 10/13/2011 Respiratory No cough Respiratory No chest tightness 10/13/2011 Respiratory No chest congestion 10/13/2011 Respiratory cigarette smoking 10/13/2011 Gastrointestinal No abdominal pain 10/13/2011 Gastrointestinal No constipation 10/13/2011 Gastrointestinal No diarrhea 10/13/2011 Genitourinary/Nephrology No urinary urgenc y 10/13/2011 Genitourinary/Nephrology No urinary frequency 10/13/2011 Genitourinary/Nephrology No dysuria 10/13/2011 Genitourinary/Nephrology No breast c omplaint 10/13/2011 Genitourinary/Nephrology No pelvic pain 10/13/2011 Dermatologic No rash Dermatologic No sores Neurologic No ataxia Neurologic No dizziness 10/13/2011 Neurologic No memory loss 10/13/2011 Neurologic No headache 0 10/13/2011 Psychiatric No anxiety 0 10/13/2011 Psychiatric depression 0 10/13/2011 Physical Exam Exam Name System Name It em Name Status Result Effective Dates Notes Full Exam - General 1994 Constitutional general appearance Overall: well developed 07/12/2018 None Full Exam - General 1994 Constitutional general appearance Overall: in no acute distress 07/12/2018 None Full Exam - General 1994 Constitutional general appearance Overall: well nourished 07/12/2018 None Full Exam - General 1994 Eyes pupils and irises Overall: pupils equal, round, reactive to light and accomodation 07/12/2018 None Full Exam - General 1994 Ears/Nose/Throat otoscopic exam Overall: external auditory canals clear 07/12/2018 None Full Exam - General 1994 Ears/Nose/Throat otoscopic exam Overall: tympanic membranes clear 07/12/2018 None Full Exam - General 1994 Ears/Nose/Throat oral cavity/pharynx/larynx Overall: oral mucosa clear 07/12/2018 None Full Exam - General 1994 Ears/Nose/Throat oral cavity/pharynx/larynx Overall: oropharyngeal mucosa clear 07/12/2018 None Full Exam - General 1994 Ears/Nose/Throat oral cavity/pharynx/larynx Overall: no masses 07/12/2018 None Full Exam - General 1994 Respiratory auscultation Overall: breath sounds clear bilaterally 07/12/2018 None Full Exam - General 1994 Respiratory respiratory effort/rhythm Overall: no retractions 07/12/2018 None Full Exam - General 1994 Respiratory respiratory effort/rhythm Overall: normal rate 07/12/2018 None Full Exam - General 1994 Cardiovascular extremities Overall: no clubbing 07/12/2018 None Full Exam - General 1994 Cardiovascular auscultation of heart Overall: regular rate 07/12/2018 None Full Exam - General 1994 Cardiovascular auscultation of heart Rhythm: irregularly irregular rhythm 07/12/2018 None Full Exam - General 1994 Lymphatic neck nodes Overall: anterior cervical chain benign 07/12/2018 None Full Exam - General 1994 Lymphatic neck nodes Overall: posterior cervical chain benign 07/12/2018 None Full Exam - General 1994 Integument inspection of skin Overall: no rash, lesions 07/12/2018 None Full Exam - General 1994 Neurologic deep tendon reflexes Overall: deep tendon reflexes intact 07/12/2018 None Full Exam - General 1994 Neurologic gait Overall: no ataxia, no unsteadiness 07/12/2018 None Full Exam - General 1994 Neurologic cranial nerves Overall: crainial nerves 2 - 12 grossly intact 07/12/2018 None Full Exam - General 1994 Psychiatric orientation/consciousness Overall: oriented to person, place and time 07/12/2018 None Full Exam - General 1994 Psychiatric mood and affect Overall: normal mood and affect 07/12/2018 None Full Exam - General 1994 Psychiatric mood and affect Mood: happy 07/12/2018 None Full Exam - General 1994 Psychiatric appearance Overall: well-groomed, good eye contact 07/12/2018 None Full Exam - General 1994 Constitutional general appearance Overall: well developed 12/14/2017 None Full Exam - General 1994 Constitutional general appearance Overall: in no acute distress 12/14/2017 None Full Exam - General 1994 Constitutional general appearance Overall: well nourished 12/14/2017 None Full Exam - General 1994 Eyes pupils and irises Overall: pupils equal, round, reactive to light and accomodation 12/14/2017 None Full Exam - General 1994 Ears/Nose/Throat otoscopic exam Overall: external auditory canals clear 12/14/2017 None Full Exam - General 1994 Ears/Nose/Throat otoscopic exam Overall: tympanic membranes clear 12/14/2017 None Full Exam - General 1994 Ears/Nose/Throat oral cavity/pharynx/larynx Overall: oral mucosa clear 12/14/2017 None Full Exam - General 1994 Ears/Nose/Throat oral cavity/pharynx/larynx Overall: oropharyngeal mucosa clear 12/14/2017 None Full Exam - General 1994 Ears/Nose/Throat oral cavity/pharynx/larynx Overall: no masses 12/14/2017 None Full Exam - General 1994 Respiratory auscultation Overall: breath sounds clear bilaterally 12/14/2017 None Full Exam - General 1994 Respiratory respiratory effort/rhythm Overall: no retractions 12/14/2017 None Full Exam - General 1994 Respiratory respiratory effort/rhythm Overall: normal rate 12/14/2017 None Full Exam - General 1994 Cardiovascular extremities Overall: no clubbing 12/14/2017 None Full Exam - General 1994 Cardiovascular auscultation of heart Overall: regular rate 12/14/2017 None Full Exam - General 1994 Cardiovascular auscultation of heart Rhythm: irregularly irregular rhythm 12/14/2017 None Full Exam - General 1994 Lymphatic neck nodes Overall: anterior cervical chain benign 12/14/2017 None Full Exam - General 1994 Lymphatic neck nodes Overall: posterior cervical chain benign 12/14/2017 None Full Exam - General 1994 Integument inspection of skin Overall: no rash, lesions 12/14/2017 None Full Exam - General 1994 Neurologic deep tendon reflexes Overall: deep tendon reflexes intact 12/14/2017 None Full Exam - General 1994 Neurologic gait Overall: no ataxia, no unsteadiness 12/14/2017 None Full Exam - General 1994 Neurologic cranial nerves Overall: crainial nerves 2 - 12 grossly intact 12/14/2017 None Full Exam - General 1994 Psychiatric orientation/consciousness Overall: oriented to person, place and time 12/14/2017 None Full Exam - General 1994 Psychiatric mood and affect Overall: normal mood and affect 12/14/2017 None Full Exam - General 1994 Psychiatric mood and affect Mood: happy 12/14/2017 None Full Exam - General 1994 Psychiatric appearance Overall: well-groomed, good eye contact 12/14/2017 None Full Exam - General 1994 Constitutional general appearance Overall: well developed 12/06/2016 None Full Exam - General 1994 Constitutional general appearance Overall: in no acute distress 12/06/2016 None Full Exam - General 1994 Constitutional general appearance Overall: well nourished 12/06/2016 None Full Exam - General 1994 Eyes pupils and irises Overall: pupils equal, round, reactive to light and accomodation 12/06/2016 None Full Exam - General 1994 Ears/Nose/Throat otoscopic exam Overall: external auditory canals clear 12/06/2016 None Full Exam - General 1994 Ears/Nose/Throat otoscopic exam Overall: tympanic membranes clear 12/06/2016 None Full Exam - General 1994 Ears/Nose/Throat oral cavity/pharynx/larynx Overall: oral mucosa clear 12/06/2016 None Full Exam - General 1994 Ears/Nose/Throat oral cavity/pharynx/larynx Overall: oropharyngeal mucosa clear 12/06/2016 None Full Exam - General 1994 Ears/Nose/Throat oral cavity/pharynx/larynx Overall: no masses 12/06/2016 None Full Exam - General 1994 Respiratory respiratory effort/rhythm Overall: no retractions 12/06/2016 None Full Exam - General 1994 Respiratory respiratory effort/rhythm Overall: normal rate 12/06/2016 None Full Exam - General 1994 Cardiovascular extremities Overall: no clubbing 12/06/2016 None Full Exam - General 1994 Cardiovascular auscultation of heart Overall: regular rate 12/06/2016 None Full Exam - General 1994 Cardiovascular auscultation of heart Overall: normal heart sounds 12/06/2016 None Full Exam - General 1994 Musculoskeletal head and neck Overall: head atraumatic 12/06/2016 None Full Exam - General 1994 Musculoskeletal head and neck Overall: cervical spine benign 12/06/2016 None Full Exam - General 1994 Neurologic deep tendon reflexes Overall: deep tendon reflexes intact 12/06/2016 None Full Exam - General 1994 Neurologic gait Overall: no ataxia, no unsteadiness 12/06/2016 None Full Exam - General 1994 Neurologic cranial nerves Overall: crainial nerves 2 - 12 grossly intact 12/06/2016 None Full Exam - General 1994 Psychiatric orientation/consciousness Overall: oriented to person, place and time 12/06/2016 None Full Exam - General 1994 Psychiatric mood and affect Overall: normal mood and affect 12/06/2016 None Full Exam - General 1994 Psychiatric mood and affect Mood: happy 12/06/2016 None Full Exam - General 1994 Psychiatric appearance Overall: well-groomed, good eye contact 12/06/2016 None Full Exam - General 1994 Integument inspection of skin Location: right arm 12/06/2016 hematoma right forearm Full Exam - General 1994 Constitutional general appearance Overall: well developed 11/08/2016 None Full Exam - General 1994 Constitutional general appearance Overall: in no acute distress 11/08/2016 None Full Exam - General 1994 Constitutional general appearance Overall: well nourished 11/08/2016 None Full Exam - General 1994 Eyes pupils and irises Overall: pupils equal, round, reactive to light and accomodation 11/08/2016 None Full Exam - General 1994 Ears/Nose/Throat otoscopic exam Overall: external auditory canals clear 11/08/2016 None Full Exam - General 1994 Ears/Nose/Throat otoscopic exam Overall: tympanic membranes clear 11/08/2016 None Full Exam - General 1994 Ears/Nose/Throat oral cavity/pharynx/larynx Overall: oral mucosa clear 11/08/2016 None Full Exam - General 1994 Ears/Nose/Throat oral cavity/pharynx/larynx Overall: oropharyngeal mucosa clear 11/08/2016 None Full Exam - General 1994 Ears/Nose/Throat oral cavity/pharynx/larynx Overall: no masses 11/08/2016 None Full Exam - General 1994 Respiratory respiratory effort/rhythm Overall: no retractions 11/08/2016 None Full Exam - General 1994 Respiratory respiratory effort/rhythm Overall: normal rate 11/08/2016 None Full Exam - General 1994 Cardiovascular extremities Overall: no clubbing 11/08/2016 None Full Exam - General 1994 Lymphatic neck nodes Overall: anterior cervical chain benign 11/08/2016 None Full Exam - General 1994 Lymphatic neck nodes Overall: posterior cervical chain benign 11/08/2016 None Full Exam - General 1994 Integument inspection of skin Overall: no rash, lesions 11/08/2016 None Full Exam - General 1994 Neurologic deep tendon reflexes Overall: deep tendon reflexes intact 11/08/2016 None Full Exam - General 1994 Neurologic gait Overall: no ataxia, no unsteadiness 11/08/2016 None Full Exam - General 1994 Neurologic cranial nerves Overall: crainial nerves 2 - 12 grossly intact 11/08/2016 None Full Exam - General 1994 Psychiatric orientation/consciousness Overall: oriented to person, place and time 11/08/2016 None Full Exam - General 1994 Psychiatric mood and affect Overall: normal mood and affect 11/08/2016 None Full Exam - General 1994 Psychiatric mood and affect Mood: happy 11/08/2016 None Full Exam - General 1994 Psychiatric appearance Overall: well-groomed, good eye contact 11/08/2016 None Full Exam - General 1994 Respiratory auscultation Overall: breath sounds clear bilaterally 11/08/2016 None Full Exam - General 1994 Cardiovascular auscultation of heart Overall: regular rate 11/08/2016 None Full Exam - General 1994 Cardiovascular auscultation of heart Rhythm: irregularly irregular rhythm 11/08/2016 None Full Exam - General 1994 Constitutional general appearance Overall: well developed 11/01/2016 None Full Exam - General 1994 Constitutional general appearance Overall: in no acute distress 11/01/2016 None Full Exam - General 1994 Constitutional general appearance Overall: well nourished 11/01/2016 None Full Exam - General 1994 Eyes pupils and irises Overall: pupils equal, round, reactive to light and accomodation 11/01/2016 None Full Exam - General 1994 Ears/Nose/Throat otoscopic exam Overall: external auditory canals clear 11/01/2016 None Full Exam - General 1994 Ears/Nose/Throat otoscopic exam Overall: tympanic membranes clear 11/01/2016 None Full Exam - General 1994 Ears/Nose/Throat oral cavity/pharynx/larynx Overall: oral mucosa clear 11/01/2016 None Full Exam - General 1995 Ears/Nose/Throat oral cavity/pharynx/larynx Overall: oropharyngeal mucosa clear 11/01/2016 None Full Exam - General 1994 Ears/Nose/Throat oral cavity/pharynx/larynx Overall: no masses 11/01/2016 None Full Exam - General 1994 Respiratory respiratory effort/rhythm Overall: no retractions 11/01/2016 None Full Exam - General 1994 Respiratory respiratory effort/rhythm Overall: normal rate 11/01/2016 None Full Exam - General 1994 Cardiovascular extremities Overall: no clubbing 11/01/2016 None Full Exam - General 1994 Cardiovascular auscultation of heart Overall: regular rate 11/01/2016 None Full Exam - General 1994 Cardiovascular auscultation of heart Overall: normal heart sounds 11/01/2016 None Full Exam - General 1994 Integument inspection of skin Overall: no rash, lesions 11/01/2016 None Full Exam - General 1994 Neurologic deep tendon reflexes Overall: deep tendon reflexes intact 11/01/2016 None Full Exam - General 1994 Neurologic gait Overall: no ataxia, no unsteadiness 11/01/2016 None Full Exam - General 1994 Neurologic cranial nerves Overall: crainial nerves 2 - 12 grossly intact 11/01/2016 None Full Exam - General 1994 Psychiatric orientation/consciousness Overall: oriented to person, place and time 11/01/2016 None Full Exam - General 1994 Psychiatric mood and affect Overall: normal mood and affect 11/01/2016 None Full Exam - General 1994 Psychiatric mood and affect Mood: happy 11/01/2016 None Full Exam - General 1994 Psychiatric appearance Overall: well-groomed, good eye contact 11/01/2016 None Full Exam - General 1994 Lymphatic neck nodes Overall: anterior cervical chain benign 11/01/2016 None Full Exam - General 1994 Lymphatic neck nodes Overall: posterior cervical chain benign 11/01/2016 None Full Exam - General 1994 Respiratory auscultation Lower lung field: crackles 11/01/2016 None Full Exam - General 1994 Constitutional general appearance Overall: well developed 11/05/2015 None Full Exam - General 1994 Constitutional general appearance Overall: in no acute distress 11/05/2015 None Full Exam - General 1994 Constitutional general appearance Overall: well nourished 11/05/2015 None Full Exam - General 1994 Eyes pupils and irises Overall: pupils equal, round, reactive to light and accomodation 11/05/2015 None Full Exam - General 1994 Ears/Nose/Throat otoscopic exam Overall: external auditory canals clear 11/05/2015 None Full Exam - General 1994 Ears/Nose/Throat otoscopic exam Overall: tympanic membranes clear 11/05/2015 None Full Exam - General 1994 Ears/Nose/Throat oral cavity/pharynx/larynx Overall: oral mucosa clear 11/05/2015 None Full Exam - General 1994 Ears/Nose/Throat oral cavity/pharynx/larynx Overall: oropharyngeal mucosa clear 11/05/2015 None Full Exam - General 1994 Ears/Nose/Throat oral cavity/pharynx/larynx Overall: no masses 11/05/2015 None Full Exam - General 1994 Respiratory respiratory effort/rhythm Overall: no retractions 11/05/2015 None Full Exam - General 1994 Respiratory respiratory effort/rhythm Overall: normal rate 11/05/2015 None Full Exam - General 1994 Cardiovascular extremities Overall: no clubbing 11/05/2015 None Full Exam - General 1994 Cardiovascular auscultation of heart Overall: regular rate 11/05/2015 None Full Exam - General 1994 Cardiovascular auscultation of heart Overall: normal heart sounds 11/05/2015 None Full Exam - General 1994 Musculoskeletal head and neck Overall: head atraumatic 11/05/2015 None Full Exam - General 1994 Musculoskeletal head and neck Overall: cervical spine benign 11/05/2015 None Full Exam - General 1994 Integument inspection of skin Overall: no rash, lesions 11/05/2015 None Full Exam - General 1994 Neurologic deep tendon reflexes Overall: deep tendon reflexes intact 11/05/2015 None Full Exam - General 1994 Neurologic gait Overall: no ataxia, no unsteadiness 11/05/2015 None Full Exam - General 1994 Neurologic cranial nerves Overall: crainial nerves 2 - 12 grossly intact 11/05/2015 None Full Exam - General 1994 Psychiatric orientation/consciousness Overall: oriented to person, place and time 11/05/2015 None Full Exam - General 1994 Psychiatric mood and affect Overall: normal mood and affect 11/05/2015 None Full Exam - General 1994 Psychiatric mood and affect Mood: happy 11/05/2015 None Full Exam - General 1994 Psychiatric appearance Overall: well-groomed, good eye contact 11/05/2015 None Full Exam - General 1994 Constitutional general appearance Overall: well developed 10/02/2014 None Full Exam - General 1994 Constitutional general appearance Overall: in no acute distress 10/02/2014 None Full Exam - General 1994 Constitutional general appearance Overall: well nourished 10/02/2014 None Full Exam - General 1994 Eyes pupils and irises Overall: pupils equal, round, reactive to light and accomodation 10/02/2014 None Full Exam - General 1994 Ears/Nose/Throat otoscopic exam Overall: external auditory canals clear 10/02/2014 None Full Exam - General 1994 Ears/Nose/Throat otoscopic exam Overall: tympanic membranes clear 10/02/2014 None Full Exam - General 1994 Ears/Nose/Throat oral cavity/pharynx/larynx Overall: oral mucosa clear 10/02/2014 None Full Exam - General 1994 Ears/Nose/Throat oral cavity/pharynx/larynx Overall: oropharyngeal mucosa clear 10/02/2014 None Full Exam - General 1994 Ears/Nose/Throat oral cavity/pharynx/larynx Overall: no masses 10/02/2014 None Full Exam - General 1994 Respiratory respiratory effort/rhythm Overall: no retractions 10/02/2014 None Full Exam - General 1994 Respiratory respiratory effort/rhythm Overall: normal rate 10/02/2014 None Full Exam - General 1994 Cardiovascular extremities Overall: no clubbing 10/02/2014 None Full Exam - General 1994 Cardiovascular auscultation of heart Overall: regular rate 10/02/2014 None Full Exam - General 1994 Cardiovascular auscultation of heart Overall: normal heart sounds 10/02/2014 None Full Exam - General 1994 Abdomen abdominal exam Overall: no tenderness 10/02/2014 None Full Exam - General 1994 Abdomen abdominal exam Overall: normal bowel sounds 10/02/2014 None Full Exam - General 1994 Abdomen liver and spleen exam Overall: no hepatosplenomegaly 10/02/2014 None Full Exam - General 1994 Abdomen liver and spleen exam Overall: no stigmata of chronic liver disease 10/02/2014 None Full Exam - General 1994 Abdomen rectal exam Overall: good sphincter tone, no mas ses, no lesions 10/02/2014 None Full Exam - General 1994 Lymphatic neck nodes Overall: anterior cervical chain benign 10/02/2014 None Full Exam - General 1994 Lymphatic neck nodes Overall: posterior cervical chain benign 10/02/2014 None Full Exam - General 1994 Musculoskeletal head and neck Overall: head atraumatic 10/02/2014 None Full Exam - General 1994 Musculoskeletal head and neck Overall: cervical spine benign 10/02/2014 None Full Exam - General 1994 Neurologic deep tendon reflexes Overall: deep tendon reflexes intact 10/02/2014 None Full Exam - General 1994 Neurologic gait Overall: no ataxia, no unsteadiness 10/02/2014 None Full Exam - General 1994 Neurologic cranial nerves Overall: crainial nerves 2 - 12 grossly intact 10/02/2014 None Full Exam - General 1994 Psychiatric orientation/consciousness Overall: oriented to person, place and time 10/02/2014 None Full Exam - General 1994 Psychiatric mood and affect Overall: normal mood and affect 10/02/2014 None Full Exam - General 1994 Psychiatric mood and affect Mood: happy 10/02/2014 None Full Exam - General 1994 Psychiatric appearance Overall: well-groomed, good eye contact 10/02/2014 None Full Exam - General 1994 Abdomen rectal exam Palpation: a normal exam 10/02/2014 None Full Exam - General 1994 Abdomen rectal exam Inspection: a normal exam 10/02/2014 None Full Exam - General 1994 Constitutional general appearance Overall: well developed 01/22/2014 None Full Exam - General 1994 Constitutional general appearance Overall: in no acute distress 01/22/2014 None Full Exam - General 1994 Constitutional general appearance Overall: well nourished 01/22/2014 None Full Exam - General 1994 Eyes pupils and irises Overall: pupils equal, round, reactive to light and accomodation 01/22/2014 None Full Exam - General 1994 Ears/Nose/Throat otoscopic exam Overall: external auditory canals clear 01/22/2014 None Full Exam - General 1994 Ears/Nose/Throat otoscopic exam Overall: tympanic membranes clear 01/22/2014 None Full Exam - General 1994 Ears/Nose/Throat oral cavity/pharynx/larynx Overall: oral mucosa clear 01/22/2014 None Full Exam - General 1994 Ears/Nose/Throat oral cavity/pharynx/larynx Overall: oropharyngeal mucosa clear 01/22/2014 None Full Exam - General 1994 Ears/Nose/Throat oral cavity/pharynx/larynx Overall: no masses 01/22/2014 None Full Exam - General 1994 Respiratory respiratory effort/rhythm Overall: no retractions 01/22/2014 None Full Exam - General 1994 Respiratory respiratory effort/rhythm Overall: normal rate 01/22/2014 None Full Exam - General 1994 Cardiovascular extremities Overall: no clubbing 01/22/2014 None Full Exam - General 1994 Cardiovascular auscultation of heart Overall: regular rate 01/22/2014 None Full Exam - General 1994 Cardiovascular auscultation of heart Overall: normal heart sounds 01/22/2014 None Full Exam - General 1994 Musculoskeletal lower extremity Palpation - knee: crepitus 01/22/2014 None Full Exam - General 1994 Musculoskeletal lower extremity Palpation - knee: no effusion 01/22/2014 None Full Exam - General 1994 Musculoskeletal head and neck Overall: head atraumatic 01/22/2014 None Full Exam - General 1994 Musculoskeletal head and neck Overall: cervical spine benign 01/22/2014 None Full Exam - General 1994 Integument inspection of skin Overall: no rash, lesions 01/22/2014 None Full Exam - General 1994 Neurologic deep tendon reflexes Overall: deep tendon reflexes intact 01/22/2014 None Full Exam - General 1994 Neurologic gait Overall: no ataxia, no unsteadiness 01/22/2014 None Full Exam - General 1994 Neurologic cranial nerves Overall: crainial nerves 2 - 12 grossly intact 01/22/2014 None Full Exam - General 1994 Psychiatric orientation/consciousness Overall: oriented to person, place and time 01/22/2014 None Full Exam - General 1994 Psychiatric mood and affect Overall: normal mood and affect 01/22/2014 None Full Exam - General 1994 Psychiatric mood and affect Mood: happy 01/22/2014 None Full Exam - General 1994 Psychiatric appearance Overall: well-groomed, good eye contact 01/22/2014 None Full Exam - General 1994 Constitutional general appearance Overall: well developed 02/07/2013 None Full Exam - General 1994 Constitutional general appearance Overall: in no acute distress 02/07/2013 None Full Exam - General 1994 Constitutional general appearance Overall: well nourished 02/07/2013 None Full Exam - General 1994 Eyes pupils and irises Overall: pupils equal, round, reactive to light and accomodation 02/07/2013 None Full Exam - General 1995 Ears/Nose/Throat otoscopic exam Overall: external auditory canals clear 02/07/2013 None Full Exam - General 1995 Ears/Nose/Throat otoscopic exam Overall: tympanic membranes clear 02/07/2013 None Full Exam - General 1995 Ears/Nose/Throat oral cavity/pharynx/larynx Overall: oral mucosa clear 02/07/2013 None Full Exam - General 1995 Ears/Nose/Throat oral cavity/pharynx/larynx Overall: oropharyngeal mucosa clear 02/07/2013 None Full Exam - General 1995 Ears/Nose/Throat oral cavity/pharynx/larynx Overall: no masses 02/07/2013 None Full Exam - General 1994 Respiratory respiratory effort/rhythm Overall: no retractions 02/07/2013 None Full Exam - General 1994 Respiratory respiratory effort/rhythm Overall: normal rate 02/07/2013 None Full Exam - General 1994 Cardiovascular extremities Overall: no clubbing 02/07/2013 None Full Exam - General 1994 Cardiovascular auscultation of heart Overall: regular rate 02/07/2013 None Full Exam - General 1994 Cardiovascular auscultation of heart Overall: normal heart sounds 02/07/2013 None Full Exam - General 1994 Abdomen abdominal exam Overall: no tenderness 02/07/2013 None Full Exam - General 1994 Abdomen abdominal exam Overall: normal bowel sounds 02/07/2013 None Full Exam - General 1994 Abdomen liver and spleen exam Overall: no hepatosplenomegaly 02/07/2013 None Full Exam - General 1994 Abdomen liver and spleen exam Overall: no stigmata of chronic liver disease 02/07/2013 None Full Exam - General 1994 Lymphatic neck nodes Overall: anterior cervical chain benign 02/07/2013 None Full Exam - General 1994 Lymphatic neck nodes Overall: posterior cervical chain benign 02/07/2013 None Full Exam - General 1994 Musculoskeletal head and neck Overall: head atraumatic 02/07/2013 None Full Exam - General 1994 Musculoskeletal head and neck Overall: cervical spine benign 02/07/2013 None Full Exam - General 1994 Neurologic deep tendon reflexes Overall: deep tendon reflexes intact 02/07/2013 None Full Exam - General 1994 Neurologic gait Overall: no ataxia, no unsteadiness 02/07/2013 None Full Exam - General 1994 Neurologic cranial nerves Overall: crainial nerves 2 - 12 grossly intact 02/07/2013 None Full Exam - General 1994 Psychiatric orientation/consciousness Overall: oriented to person, place and time 02/07/2013 None Full Exam - General 1994 Psychiatric mood and affect Overall: normal mood and affect 02/07/2013 None Full Exam - General 1994 Psychiatric mood and affect Mood: happy 02/07/2013 None Full Exam - General 1994 Psychiatric appearance Overall: well-groomed, good eye contact 02/07/2013 None Full Exam - General 1994 Abdomen rectal exam Overall: good sphincter tone, no mas ses, no lesions 02/07/2013 None Full Exam - General 1994 Musculoskeletal lower extremity Palpation - knee: crepitus 02/16/2012 None Full Exam - General 1994 Constitutional general appearance Overall: well developed 02/16/2012 None Full Exam - General 1994 Constitutional general appearance Overall: in no acute distress 02/16/2012 None Full Exam - General 1994 Constitutional general appearance Overall: well nourished 02/16/2012 None Full Exam - General 1994 Eyes pupils and irises Overall: pupils equal, round, reactive to light and accomodation 02/16/2012 None Full Exam - General 1994 Ears/Nose/Throat otoscopic exam Overall: external auditory canals clear 02/16/2012 None Full Exam - General 1994 Ears/Nose/Throat otoscopic exam Overall: tympanic membranes clear 02/16/2012 None Full Exam - General 1994 Ears/Nose/Throat oral cavity/pharynx/larynx Overall: oral mucosa clear 02/16/2012 None Full Exam - General 1994 Ears/Nose/Throat oral cavity/pharynx/larynx Overall: oropharyngeal mucosa clear 02/16/2012 None Full Exam - General 1994 Ears/Nose/Throat oral cavity/pharynx/larynx Overall: no masses 02/16/2012 None Full Exam - General 1994 Respiratory respiratory effort/rhythm Overall: no retractions 02/16/2012 None Full Exam - General 1994 Respiratory respiratory effort/rhythm Overall: normal rate 02/16/2012 None Full Exam - General 1994 Cardiovascular extremities Overall: no clubbing 02/16/2012 None Full Exam - General 1994 Cardiovascular auscultation of heart Overall: regular rate 02/16/2012 None Full Exam - General 1994 Cardiovascular auscultation of heart Overall: normal heart sounds 02/16/2012 None Full Exam - General 1994 Musculoskeletal lower extremity Palpation - knee: no effusion 02/16/2012 None Full Exam - General 1994 Musculoskeletal head and neck Overall: head atraumatic 02/16/2012 None Full Exam - General 1994 Musculoskeletal head and neck Overall: cervical spine benign 02/16/2012 None Full Exam - General 1994 Integument inspection of skin Overall: no rash, lesions 02/16/2012 None Full Exam - General 1994 Neurologic deep tendon reflexes Overall: deep tendon reflexes intact 02/16/2012 None Full Exam - General 1994 Neurologic gait Overall: no ataxia, no unsteadiness 02/16/2012 None Full Exam - General 1994 Neurologic cranial nerves Overall: crainial nerves 2 - 12 grossly intact 02/16/2012 None Full Exam - General 1994 Psychiatric orientation/consciousness Overall: oriented to person, place and time 02/16/2012 None Full Exam - General 1994 Psychiatric mood and affect Overall: normal mood and affect 02/16/2012 None Full Exam - General 1994 Psychiatric mood and affect Mood: happy 02/16/2012 None Full Exam - General 1994 Psychiatric appearance Overall: well-groomed, good eye contact 02/16/2012 None Full Exam - General 1994 Constitutional general appearance Overall: well developed 01/24/2012 None Full Exam - General 1994 Constitutional general appearance Overall: in no acute distress 01/24/2012 None Full Exam - General 1994 Constitutional general appearance Overall: well nourished 01/24/2012 None Full Exam - General 1994 Eyes pupils and irises Overall: pupils equal, round, reactive to light and accomodation 01/24/2012 None Full Exam - General 1994 Ears/Nose/Throat otoscopic exam Overall: external auditory canals clear 01/24/2012 None Full Exam - General 1994 Ears/Nose/Throat otoscopic exam Overall: tympanic membranes clear 01/24/2012 None Full Exam - General 1994 Ears/Nose/Throat oral cavity/pharynx/larynx Overall: oral mucosa clear 01/24/2012 None Full Exam - General 1995 Ears/Nose/Throat oral cavity/pharynx/larynx Overall: oropharyngeal mucosa clear 01/24/2012 None Full Exam - General 1994 Ears/Nose/Throat oral cavity/pharynx/larynx Overall: no masses 01/24/2012 None Full Exam - General 1994 Respiratory respiratory effort/rhythm Overall: no retractions 01/24/2012 None Full Exam - General 1994 Respiratory respiratory effort/rhythm Overall: normal rate 01/24/2012 None Full Exam - General 1994 Cardiovascular extremities Overall: no clubbing 01/24/2012 None Full Exam - General 1994 Cardiovascular auscultation of heart Overall: regular rate 01/24/2012 None Full Exam - General 1995 Cardiovascular auscultation of heart Overall: normal heart sounds 01/24/2012 None Full Exam - General 1995 Musculoskeletal head and neck Overall: head atraumatic 01/24/2012 None Full Exam - General 1995 Musculoskeletal head and neck Overall: cervical spine benign 01/24/2012 None Full Exam - General 1994 Integument inspection of skin Overall: no rash, lesions 01/24/2012 None Full Exam - General 1994 Neurologic deep tendon reflexes Overall: deep tendon reflexes intact 01/24/2012 None Full Exam - General 1994 Neurologic gait Overall: no ataxia, no unsteadiness 01/24/2012 None Full Exam - General 1995 Neurologic cranial nerves Overall: crainial nerves 2 - 12 grossly intact 01/24/2012 None Full Exam - General 1994 Psychiatric orientation/consciousness Overall: oriented to person, place and time 01/24/2012 None Full Exam - General 1994 Psychiatric mood and affect Overall: normal mood and affect 01/24/2012 None Full Exam - General 1994 Psychiatric mood and affect Mood: happy 01/24/2012 None Full Exam - General 1994 Psychiatric appearance Overall: well-groomed, good eye contact 01/24/2012 None Full Exam - General 1994 Musculoskeletal lower extremity Palpation - thigh: tenderness 01/24/2012 None Full Exam - General 1994 Musculoskeletal lower extremity Palpation - knee: crepitus 01/24/2012 None Full Exam - General 1994 Musculoskeletal lower extremity Palpation - knee: no effusion 01/24/2012 None Full Exam - General 1994 Constitutional general appearance Overall: well developed 10/31/2011 None Full Exam - General 1994 Constitutional general appearance Overall: in no acute distress 10/31/2011 None Full Exam - General 1994 Constitutional general appearance Overall: well nourished 10/31/2011 None Full Exam - General 1994 Eyes pupils and irises Overall: pupils equal, round, reactive to light and accomodation 10/31/2011 None Full Exam - General 1994 Ears/Nose/Throat otoscopic exam Overall: external auditory canals clear 10/31/2011 None Full Exam - General 1994 Ears/Nose/Throat otoscopic exam Overall: tympanic membranes clear 10/31/2011 None Full Exam - General 1994 Ears/Nose/Throat oral cavity/pharynx/larynx Overall: oral mucosa clear 10/31/2011 None Full Exam - General 1994 Ears/Nose/Throat oral cavity/pharynx/larynx Overall: oropharyngeal mucosa clear 10/31/2011 None Full Exam - General 1994 Ears/Nose/Throat oral cavity/pharynx/larynx Overall: no masses 10/31/2011 None Full Exam - General 1994 Neck thyroid Overall: normal size 08/2011 None Full Exam - General 1994 Neck thyroid Overall: normal consistency 10/31/2011 None Full Exam - General 1994 Neck thyroid Overall: nontender 10/30 None Full Exam - General 1994 Neck thyroid Overall: no mass lesions 10/31/2011 None Full Exam - General 1994 Respiratory respiratory effort/rhythm Overall: no retractions 10/31/2011 None Full Exam - General 1994 Respiratory respiratory effort/rhythm Overall: normal rate 10/31/2011 None Full Exam - General 1994 Cardiovascular extremities Overall: no clubbing 10/31/2011 None Full Exam - General 1994 Cardiovascular auscultation of heart Overall: regular rate 10/31/2011 None Full Exam - General 1994 Cardiovascular auscultation of heart Overall: normal heart sounds 10/31/2011 None Full Exam - General 1994 Abdomen abdominal exam Overall: no tenderness 10/31/2011 None Full Exam - General 1994 Abdomen abdominal exam Overall: normal bowel sounds 10/31/2011 None Full Exam - General 1994 Abdomen liver and spleen exam Overall: no hepatosplenomegaly 10/31/2011 None Full Exam - General 1994 Abdomen liver and spleen exam Overall: no stigmata of chronic liver disease 10/31/2011 None Full Exam - General 1994 Lymphatic neck nodes Overall: anterior cervical chain benign 10/31/2011 None Full Exam - General 1994 Lymphatic neck nodes Overall: posterior cervical chain benign 10/31/2011 None Full Exam - General 1994 Musculoskeletal lower extremity Inspection - foot: a normal exam 10/31/2011 None Full Exam - General 1994 Musculoskeletal lower extremity Inspection - foot: swelling 10/31/2011 None Full Exam - General 1994 Musculoskeletal lower extremity Palpation - foot: a normal exam 10/31/2011 None Full Exam - General 1994 Musculoskeletal lower extremity Palpation - foot: swelling 10/31/2011 None Full Exam - General 1994 Musculoskeletal lower extremity Palpation - foot: tender 10/31/2011 None Full Exam - General 1994 Musculoskeletal lower extremity Palpation - foot: warm 10/31/2011 None Full Exam - General 1994 Musculoskeletal lower extremity ROM - foot: a normal exam 10/31/2011 None Full Exam - General 1994 Musculoskeletal lower extremity ROM - foot: decreased toe flexion 10/31/2011 None Full Exam - General 1994 Musculoskeletal lower extremity ROM - foot: pain with ROM 10/31/2011 None Full Exam - General 1994 Musculoskeletal head and neck Overall: head atraumatic 10/31/2011 None Full Exam - General 1994 Musculoskeletal head and neck Overall: cervical spine benign 10/31/2011 None Full Exam - General 1994 Integument inspection of skin Overall: no rash, lesions 10/31/2011 None Full Exam - General 1995 Neurologic deep tendon reflexes Overall: deep tendon reflexes intact 10/31/2011 None Full Exam - General 1994 Neurologic gait Overall: no ataxia, no unsteadiness 10/31/2011 None Full Exam - General 1994 Neurologic cranial nerves Overall: crainial nerves 2 - 12 grossly intact 10/31/2011 None Full Exam - General 1994 Psychiatric orientation/consciousness Overall: oriented to person, place and time 10/31/2011 None Full Exam - General 1994 Psychiatric mood and affect Overall: normal mood and affect 10/31/2011 None Full Exam - General 1994 Psychiatric mood and affect Mood: happy 10/31/2011 None Full Exam - General 1994 Psychiatric appearance Overall: well-groomed, good eye contact 10/31/2011 None Full Exam - General 1994 Genitourinary cervix Overall: surgically absent 10/31/2011 None Full Exam - General 1994 Genitourinary labia and vagina Overall: normal hair distribution 10/31/2011 None Full Exam - General 1994 Genitourinary labia and vagina Overall: no lesions 10/31/2011 None Full Exam - General 1994 Genitourinary adnexa/parametria Adnexa: not palpable 10/31/2011 None Full Exam - General 1994 Chest/Breast breast and axillae palpation Overall: breasts non- tender 10/31/2011 None Full Exam - General 1994 Chest/Breast breast and axillae palpation Overall: axillae non- tender 10/31/2011 None Full Exam - General 1994 Chest/Breast breast and axillae palpation Overall: no nipple discharge 10/31/2011 None Full Exam - General 1994 Constitutional general appearance Overall: well nourished 10/13/2011 None Full Exam - General 1994 Constitutional general appearance Overall: well developed 10/13/2011 None Full Exam - General 1994 Constitutional general appearance Overall: in no acute distress 10/13/2011 None Full Exam - General 1994 Eyes pupils and irises Overall: pupils equal, round, reactive to light and accomodation 10/13/2011 None Full Exam - General 1995 Ears/Nose/Throat otoscopic exam Overall: tympanic membranes clear 10/13/2011 None Full Exam - General 1995 Ears/Nose/Throat otoscopic exam Overall: external auditory canals clear 10/13/2011 None Full Exam - General 1995 Ears/Nose/Throat oral cavity/pharynx/larynx Overall: oropharyngeal mucosa clear 10/13/2011 None Full Exam - General 1994 Ears/Nose/Throat oral cavity/pharynx/larynx Overall: no masses 10/13/2011 None Full Exam - General 1994 Ears/Nose/Throat oral cavity/pharynx/larynx Overall: oral mucosa clear 10/13/2011 None Full Exam - General 1994 Neck thyroid Overall: nontender 10/12 None Full Exam - General 1994 Neck thyroid Overall: normal size None Full Exam - General 1994 Neck thyroid Overall: no mass lesions 10/13/2011 None Full Exam - General 1994 Neck thyroid Overall: normal consistency 10/13/2011 None Full Exam - General 1994 Respiratory respiratory effort/rhythm Overall: normal rate 10/13/2011 None Full Exam - General 1994 Respiratory respiratory effort/rhythm Overall: no retractions 10/13/2011 None Full Exam - General 1994 Cardiovascular auscultation of heart Overall: regular rate 10/13/2011 None Full Exam - General 1994 Cardiovascular auscultation of heart Overall: normal heart sounds 10/13/2011 None Full Exam - General 1994 Cardiovascular extremities Overall: no clubbing 10/13/2011 None Full Exam - General 1994 Abdomen abdominal exam Overall: no tenderness 10/13/2011 None Full Exam - General 1994 Abdomen abdominal exam Overall: normal bowel sounds 10/13/2011 None Full Exam - General 1994 Abdomen liver and spleen exam Overall: no hepatosplenomegaly 10/13/2011 None Full Exam - General 1994 Abdomen liver and spleen exam Overall: no stigmata of chronic liver disease 10/13/2011 None Full Exam - General 1994 Lymphatic neck nodes Overall: anterior cervical chain benign 10/13/2011 None Full Exam - General 1994 Lymphatic neck nodes Overall: posterior cervical chain benign 10/13/2011 None Full Exam - General 1994 Musculoskeletal head and neck Overall: cervical spine benign 10/13/2011 None Full Exam - General 1994 Musculoskeletal head and neck Overall: head atraumatic 10/13/2011 None Full Exam - General 1994 Psychiatric orientation/consciousness Overall: oriented to person, place and time 10/13/2011 None Full Exam - General 1994 Psychiatric mood and affect Mood: happy 10/13/2011 None Full Exam - General 1994 Psychiatric mood and affect Overall: normal mood and affect 10/13/2011 None Full Exam - General 1994 Neurologic cranial nerves Overall: crainial nerves 2 - 12 grossly intact 10/13/2011 None Full Exam - General 1994 Neurologic deep tendon reflexes Overall: deep tendon reflexes intact 10/13/2011 None Full Exam - General 1994 Neurologic gait Overall: no ataxia, no unsteadiness 10/13/2011 None Full Exam - General 1994 Integument inspection of skin Overall: no rash, lesions 10/13/2011 None Full Exam - General 1994 Psychiatric appearance Overall: well-groomed, good eye contact 10/13/2011 None Full Exam - General 1994 Musculoskeletal lower extremity Inspection - foot: swelling 10/13/2011 None Full Exam - General 1994 Musculoskeletal lower extremity Inspection - foot: a normal exam 10/13/2011 None Full Exam - General 1994 Musculoskeletal lower extremity Palpation - foot: warm 10/13/2011 None Full Exam - General 1994 Musculoskeletal lower extremity Palpation - foot: a normal exam 10/13/2011 None Full Exam - General 1994 Musculoskeletal lower extremity Palpation - foot: swelling 10/13/2011 None Full Exam - General 1994 Musculoskeletal lower extremity Palpation - foot: tender 10/13/2011 None Full Exam - General 1994 Musculoskeletal lower extremity ROM - foot: decreased toe flexion 10/13/2011 None Full Exam - General 1994 Musculoskeletal lower extremity ROM - foot: pain with ROM 10/13/2011 None Full Exam - General 1994 Musculoskeletal lower extremity ROM - foot: a normal exam 10/13/2011 None Procedures Procedure Codes Date ADMIN INFLUENZA VIRU S VAC CPT-4: G0008 02/16/2012 FLULAVAL VACC, 3 YRS & >, IM CPT-4: Q2036 02/16/2012 PRESCRIP TRANSMIT A ERX SY CPT-4: G8553 01/24/2012 ROUTINE VENIPUNCTURE CPT-4: 81764 10/13/2011 Vital Signs Date Vital 07/12/2018 Blood Pressure 1: 126/68 Code: 8480-6 BMI: 28.4 Code: 24626-5 Heart Rate 1: 71 bpm Height: 5' SpO2: 97% Weight: 148 lbs 12/14/2017 Blood Pressure 1: 138/80 Code: 8480-6 BMI: 28.8 Code: 50690-5 Heart Rate 1: 73 bpm Height: 5' SpO2: 98% Weight: 150 lbs 12/06/2016 Blood Pressure 1: 146/82 Code: 8480-6 BMI: 26.8 Code: 22931-3 Heart Rate 1: 58 bpm Height: 5' SpO2: 95% Weight: 139 lbs 8 oz 11/08/2016 Blood Pressure 1: 136/82 Code: 8480-6 Heart Rate 1: 113 bpm Height: 5' SpO2: 95% Temperature: 36.9 (C ) / 98.4 (F) 11/01/2016 Blood Pressure 1: 136/78 Code: 8480-6 Heart Rate 1: 105 bpm SpO2: 98% Weight: 137 lbs 8 oz 11/05/2015 Blood Pressure 1: 118/74 Code: 8480-6 BMI: 25.7 Code: 13182-5 Heart Rate 1: 64 bpm Height: 5' SpO2: 98% Weight: 134 lbs 10/02/2014 Blood Pressure 1: 136/88 Code: 8480-6 BMI: 25.9 Code: 94348-4 Heart Rate 1: 68 bpm Height: 5' SpO2: 98% Weight: 135 lbs 01/22/2014 Blood Pressure 1: 122/64 Code: 8480-6 BMI: 25.7 Code: 67217-9 Heart Rate 1: 72 bpm Height: 5' Weight: 134 lbs 02/07/2013 Blood Pressure 1: 140/80 Code: 8480-6 BMI: 23.6 Code: 91787-2 Height: 5' Weight: 123 lbs 02/16/2012 Blood Pressure 1: 102/68 Code: 8480-6 Heart Rate 1: 68 bpm Respiratory Rate: 18 bpm Weight: 131 lbs 01/24/2012 Blood Pressure 1: 120/72 Code: 8480-6 Heart Rate 1: 72 bpm Respiratory Rate: 16 bpm Weight: 133 lbs 10/31/2011 Blood Pressure 1: 136/84 Code: 8480-6 BMI: 23.2 Code: 52386-1 Heart Rate 1: 74 bpm Height: 5'2" Respiratory Rate: 16 bpm Weight: 127 lbs 10/13/2011 Blood Pressure 1: 138/84 Code: 8480-6 BMI: 23.2 Code: 13402-8 Heart Rate 1: 80 bpm Height: 5'2" Respiratory Rate: 16 bpm Weight: 127 lbs Functional Status No Functional Status data History of Present Illness Symptom Name Status Resu lt Effective Date Notes Onset and Resolution o ngoing 07/12/2018 None Location in the midlin e of in the lower back area 07/12/2018 None Quality intermittent 07/12/2018 None Onset of Symptom aguilar hs ago 07/12/2018 None Frequency of Episodes decreasing 07/12/2018 None Mechanism of injury un known 07/12/2018 None Radiating down left leg 07/12/2018 -throbbing pain in her left upper leg Limitation on Activities does not limit activities 07/12/2018 None Triggers no known asso ciated factors 07/12/2018 None Initial treatment medi cation 07/12/2018 took 1 of 's hydro codone Severity mild 07/12/2018 None Sports Participation n ot significant 07/12/2018 None arrhythmia Alleviating Factors medication 12/14/2017 None arrhythmia Quality chron ic 12/14/2017 None arrhythmia Quality irreg ular beats 12/14/2017 (afib) arrhythmia Onset and Resolution ongoing 12/14/2017 None arrhythmia Pertinent Findings Denies dizziness 12/14/2017 None arrhythmia Pertinent Findings dyspnea 12/14/2017 due to weight gain arrhythmia Pertinent Findings palpitations 12/14/2017 None weight gain/obesity Location globally 12/14/2017 None weight gain/obesity Quality worsening 12/14/2017 None weight gain/obesity Onset and Resolution ongoing 12/14/2017 None weight gain/obesity Triggers unintentional weight gain 12/14/2017 None hypertension Onset and Resolution ongoing 12/06/2016 None hypertension Onset of Symptom during adulthood 12/06/2016 None hypertension Pertinent Findings Denies decreased energy 12/06/2016 None hypertension Pertinent Findings Denies dizziness 12/06/2016 None hypertension Pertinent Findings Denies dyspnea 12/06/2016 None hypertension Pertinent Findings Denies edema 12/06/2016 None arrhythmia Quality acute 12/06/2016 new onset afib at last appointment arrhythmia Onset and Resolution resolved 12/06/[address] Mallory veronica arrhythmia Onset of Symptom _ months ago 12/06/2016 None arrhythmia Limitation on Activities does not limit activities 12/06/2016 None arrhythmia Frequency of Episodes decreasing 12/06/2016 None arrhythmia Triggers no k nown associated factors 12/06/2016 None arrhythmia Alleviating Factors medication 12/06/2016 None arrhythmia Alleviating Factors activity 12/06/2016 cardioversion cough Location in the claudia ng 11/08/2016 None cough Quality acute 11/08/2016 None cough Onset and Resolution ongoing 11/08/2016 None cough Onset of Symptom _ weeks ago 11/08/2016 None cough Limitation on Activities does not limit activities 11/08/2016 None cough Frequency of Episodes decreasing 11/08/2016 None cough Triggers no known associated factors 11/08/2016 None cough Pertinent Findings chest discomfort 11/08/2016 None cough Pertinent Findings Denies dyspnea 11/08/2016 None cough Pertinent Findings Denies fever 11/08/2016 None Hospital Follow Up _ inf ection 11/08/2016 None Hospital Follow Up _ pne onia 11/08/2016 None Hospital Follow Up Quality acute illness 11/08/2016 None Hospital Follow Up Pertinent Findings Other: cough 11/08/2016 None Hospital Follow Up _ inf ection 11/01/2016 None Hospital Follow Up _ pne [facility] 11/01/2016 None Hospital Follow Up Quality acute illness 11/01/2016 None Hospital Follow Up Pertinent Findings Other: cough 11/01/2016 None cough Location in the claudia ng 11/01/2016 None cough Quality acute 11/01/2016 None cough Onset and Resolution ongoing 11/01/2016 None cough Onset of Symptom _ weeks ago 11/01/2016 None cough Limitation on Activities does not limit activities 11/01/2016 None cough Frequency of Episodes decreasing 11/01/2016 None cough Triggers no known associated factors 11/01/2016 None cough Pertinent Findings chest discomfort 11/01/2016 None cough Pertinent Findings Denies dyspnea 11/01/2016 None cough Pertinent Findings Denies fever 11/01/2016 None anxiety Quality intermit tent 11/05/2015 None anxiety Onset and Resolution ongoing 11/05/2015 None anxiety Limitation on Activities does not limit activities 11/05/2015 None anxiety Frequency of Episodes weekly 11/05/2015 None anxiety Pertinent Findings Denies dizziness 11/05/2015 None anxiety Pertinent Findings Denies dyspnea 11/05/2015 None anxiety Pertinent Findings Denies sweating 11/05/2015 None anxiety Pertinent Findings Denies syncope 11/05/2015 None anxiety Triggers no know n associated factors 11/05/2015 None anxiety Alleviating Factors medication 11/05/2015 None hemorrhoids Quality blee ding 10/02/2014 None hemorrhoids Pertinent Findings Denies pain 10/02/2014 more pressure hemorrhoids Onset and Resolution ongoing 10/02/2014 None hemorrhoids Onset of Symptom 4-5 years ago 10/02/2014 None hemorrhoids Severity mild 10/02/2014 None hemorrhoids Limitation on Activities does not limit activities 10/02/2014 None hemorrhoids Frequency of Episodes unchanged 10/02/2014 None hemorrhoids Pertinent Findings Denies vomiting 10/02/2014 None hemorrhoids Pertinent Findings Denies chills 10/02/2014 None hemorrhoids Pertinent Findings Denies fever 10/02/2014 None hemorrhoids Pertinent Findings Denies nausea 10/02/2014 None depression Quality chron ic 01/22/2014 None depression Onset and Resolution ongoing 01/22/2014 None depression Triggers stre ss 01/22/2014 None depression Alleviating Factors medication 01/22/2014 None depression Pertinent Findings depressed mood 01/22/2014 None depression Pertinent Findings anxiety 01/22/2014 None depression Pertinent Findings Denies sleep disturbance 01/22/2014 None depression Limitation on Activities moderately limits activities 01/22/2014 None hemorrhoids Quality blee ding 02/07/2013 None hemorrhoids 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 02/07/2013 None hemorrhoids Onset and Resolution gradual in onset 02/07/2013 None hemorrhoids Onset and Resolution ongoing 02/07/2013 None hemorrhoids Onset of Symptom 3 years ago 02/07/2013 off and on hemorrhoids Severity mild 02/07/2013 None hemorrhoids Limitation on Activities does not limit activities 02/07/2013 None hemorrhoids Pertinent Findings Denies chills 02/07/2013 None hemorrhoids Pertinent Findings Denies fever 02/07/2013 None hemorrhoids Pertinent Findings Denies nausea 02/07/2013 None hemorrhoids Pertinent Findings Denies pain 02/07/2013 None hemorrhoids Frequency of Episodes weekly 02/07/2013 None hemorrhoids Timing of Episodes during bowel movement 02/07/2013 None hip pain Quality dull ac he 02/16/2012 --Improved hip pain Quality worseni ng 02/16/2012 --Improved hip pain Frequency of Episodes weekly 02/16/2012 --Improved hip pain Frequency of Episodes increasing 02/16/2012 --Improved hip pain Limitation on Activities moderately limits activities 02/16/2012 --Improved hip pain Severity modera te 02/16/2012 --Improved hip pain Pertinent Findings pain with movement 02/16/2012 when she gets up --Improved hip pain Significant Medical Conditions advancing age 0902/16/2012 None hip pain Exacerbating Factors activity 02/16/2012 --Resolved hip pain Exacerbating Factors exertion 02/16/2012 --Resolved hip pain Location on the right 01/24/2012 None hip pain Quality dull ac he 01/24/2012 None hip pain Quality worseni ng 01/24/2012 None hip pain Pertinent Findings pain with movement 01/24/2012 when she gets up hip pain Limitation on Activities moderately limits activities 01/24/2012 None hip pain Radiating radia smita 01/24/2012 to thigh and alternativel y to back of leg hip pain Timing of Episodes in the morning 01/24/2012 None hip pain Onset and Resolution gradual in onset 01/24/2012 None hip pain Frequency of Episodes weekly 01/24/2012 None hip pain Frequency of Episodes increasing 01/24/2012 None hip pain Severity modera te 01/24/2012 None hip pain Significant Medical Conditions advancing age 0801/24/2012 None hip pain Exacerbating Factors activity 01/24/2012 None hip pain Exacerbating Factors exertion 01/24/2012 None well woman exam (65+ years) Pap Smear last normal performed 4 yrs ago 10/31/2011 None well woman exam (65+ years) Menstrua l History menopause at age 32 10/31/2011 hysterectomy well woman exam (65+ years) Obstetri francia History 4 total pregnancies 10/31/2011 None well woman exam (65+ years) Obstetri francia History 1 full term 10/31/2011 None well woman exam (65+ years) Obstetri francia History 3 spontaneous 10/31/2011 None well woman exam (65+ years) Nutritio n and Exercise normal weight 10/31/2011 None well woman exam (65+ years) Nutritio n and Exercise balanced nutrition 10/31/2011 None well woman exam (65+ years) Nutritio n and Exercise moderate exercise 10/31/2011 walks approx 2 miles per day well woman exam (65+ years) Health Guidanc e self-breast exam 10/31/2011 None well woman exam (65+ years) Health Guidanc e tobacco, drugs and alcohol avoidance 10/31/2011 None well woman exam (65+ years) Lifestyle regular seatbelt use 10/31/2011 None foot pain Location at th e MP joint of the great toe 10/13/2011 None foot pain Onset of Symptom 3 months ago 10/13/2011 None foot pain Pertinent Findings limping 10/13/2011 None foot pain Pertinent Findings stiffness 10/13/2011 None foot pain Pertinent Findings swelling 10/13/2011 None foot pain Pertinent Findings warmth 10/13/2011 None foot pain Quality sharp pain 10/13/2011 None foot pain Quality tender ness 10/13/2011 None foot pain Quality throbb ing 10/13/2011 None foot pain Limitation on Activities allows weight bearing activity 10/13/2011 None foot pain Severity moder ate 10/13/2011 None foot pain Significant Medical Conditions degenerative joint disease 10/13/2011 None foot pain Mechanism of injury unknown 10/13/2011 None foot pain Alleviating Factors elevation 10/13/2011 None foot pain Alleviating Factors ice compression 10/13/2011 None foot pain Exacerbating Factors standing 10/13/2011 None foot pain Exacerbating Factors walking 10/13/2011 None foot pain Initial treatment ice 10/13/2011 None foot pain Initial treatment elevation 10/13/2011 None Advance Directives No Advance Directive data Encounters Encounter Performer Loca tion Codes Date ([id number]) 18694 EST. P ATIENT, LEVEL III Diagnosis: Low back pain[ICD10: M54.5] Jennifer Walker MD, [facility] CPT- 4: 02653 07/12/2018 ([id number]) 39157 EST. P ATIENT, LEVEL IV Diagnosis: Paroxysmal atrial fibrillation[ICD10: I48.0] Diagnosis: Abnormal weight gain[ICD10: R63.5] Diagnosis: Irritable bowel syndrome with diarrhea[ICD10: K58.0] Jennifer Walker MD, [facility] CPT-4: 80774 12/14/2017 ([id number]) 31761 EST. P ATIENT, LEVEL III Diagnosis: Paroxysmal atrial fibrillation[ICD10: I48.0] Jennifer Walker MD, [facility] CPT-4: 44756 12/06/2016 ([id number]) 26860 EST. P ATIENT, LEVEL IV Diagnosis: Paroxysmal atrial fibrillation[ICD10: I48.0] Diagnosis: Pneumonia, unspecified organism[ICD10: J18.9] Jennifer Walker MD, [facility] CPT-4: 25874 11/08/2016 ([id number]) 16592 EST. P ATIENT, LEVEL III Diagnosis: Cough[ICD10: R05] Diagnosis: Pneumonia, unspecified organism[ICD10: J18.9] Jennifer Walker MD, [facility] CPT-4: 43691 11/01/2016 ([id number]) 16229 EST. P ATIENT, LEVEL III Diagnosis: Generalized anxiety disorder[ICD10: F41.1] Jennifer Walker MD, [facility] CPT-4: 20702 11/05/2015 ([id number]) 16267 EST. P ATIENT, LEVEL III Diagnosis: Rectal bleeding[ICD9: 569.3] Jennifer Walker MD, [facility] CPT- 4: 97535 10/02/2014 ([id number]) 78589 EST. P ATIENT, LEVEL III Diagnosis: Anxiety, generalized[ICD9: 300.02] Diagnosis: Depression[ICD9: 311] Kim Walker MD, [facility] CPT-4: 98040 01/22/2014 ([id number]) 45986 EST. [facility]: Bloody feces[ICD9: 578.1] Kim Walker MD, [facility] CPT-4: 33163 02/07/2013 ([id number]) 24064 EST. P ATIENT, LEVEL III Diagnosis: OSTEOARTH NOS-UNSPEC[ICD9: 715.90] Diagnosis: MUSCLE/LIGAMENT DIS NEC[ICD9: 728.89] Kim Walker MD, [facility] CPT-4: 53766 02/16/2012 ([id number]) 67401 EST. P ATIENT, LEVEL III Diagnosis: Iliotibial band syndrome[ICD9: 728.89] Diagnosis: OSTEOARTH NOS-UNSPEC[ICD9: 715.90] Diagnosis: PAIN IN LIMB[ICD9: 729.5] Kim Walker MD, [facility] CPT-4: 65004 01/24/2012 ([id number]) 31064 EST. P ATIENT, LEVEL IV Diagnosis: OSTEOARTH NOS-UNSPEC[ICD9: 715.90] Diagnosis: ROUTINE GYNE EXAM[ICD9: V72.31] Kim Walker MD, [facility] CPT-4: 88247 10/31/2011 OFFICE VISIT, NEW - LEVEL 4 Diagnosis: Osteoarthritis[ICD9: 715.90] Diagnosis: INSOMNIA NOS[ICD9: 780.52] Diagnosis: PAIN IN LIMB[ICD9: 729.5] [facility] CPT-4: 00234 10/13/2011 Plan of Care Planned Activity Notes C odes Status Date Visit Plan: Low back pain- patient' s pain is actually improved -recommend MRI -refer to Dr Crouch if needed- okay to use tylenol for pain -also discussed PT if indicated-patient verbalized understanding of plan. 07/12/2018 Appointment: Jennifer Vera WPtel: [address] [place], [place] [phone] (30 min) Complex 07/12/2018 Patient Education: Patient Medication Summary Completed 07/12/2018 Patient Education: Back Pain Completed 07/12/2018 Care Plan: MRI LUMBAR SPINE W/O DYE LOINC : 04872-0 Pending 07/12/2018 Patient Education: Patient Medication Summary Completed 12/15/2017 Visit Plan: Atrial Fibrillation - p t on chronic anticoagulation and is currently rate controlled. The pt is to have labs done as appropriate to monitor medication levels and is to report if they start to feel as if their heart rate is becoming uncontrolled. IBS with diarrhea-chronic--rx for xifaxan provided and instructed on use Fatigue-weigh gain-check labs including TSH 12/14/2017 Appointment: Jennifer Vera WPtel: [address] [place], [place] [phone] (15 min) Moderate 12/14/2017 Patient Education: Patient Medication Summary Completed 12/14/2017 Care Plan: Cbc With Differential Pending 12/14/2017 Visit Plan: Afib-converted to NSR b y Dr Solorzano-on xarelto- instructed patient to report if they start to feel as if their heart rate is becoming uncontrolled or other symptoms develop. Patient verbalized understan zayra. 12/06/2016 Appointment: Jennifer Vera WPtel: [phone] (15 min) Moderate 12/06/2016 Patient Education: Patient Medication Summary Completed 12/06/2016 Visit Plan: Afib-ordered EKG to con firm-increase cartia for heart rate control and start eliquis 5mg twice daily-follow up with Dr Solorzano Pneumonia-finished abx-no further treatment indicated 11/08/2016 Appointment: Jennifer Vera WPtel: [address] [place], [place] [phone] (30 min) Complex 11/08/2016 Patient Education: Patient Medication Summary Completed 11/08/2016 Visit Plan: Pneumonia-on abx per ur gent-continue current treatment and follow up in 1 week to ensure resolution of symptoms. Call sooner for worsening or new symptoms. Patient verbalized understanding of plan. 11/01/2016 Appointment: Jennifer Vera WPtel: [address] [place], [place] [phone] (15 min) Moderate 11/01/2016 Patient Education: Patient Medication Summary Completed 11/01/2016 Visit Plan: Chronic Depression and anxiety - the pt has symptoms of chronic anxiety and depression that have been fairly well controlled since the last office visit. The pt has expected periods of exacerbation with abatement of the symptoms with change in situational exposure. No change in current medications. 11/05/2015 Appointment: Jennifer Vera WPtel: [address] [place], [place] [phone] (15 min) Moderate 11/05/2015 Patient Education: Patient Medication Summary Completed 11/05/2015 Visit Plan: Rectal bleeding-history of internal hemorrhoids per patient report-RX for annusol suppositories sent to patient's pharmacy and instructed on use-refer to Dr Lara for follow up 10/02/2014 Appointment: Sick 10/02/2014 Patient Education: Patient Medication Summary Completed 10/02/2014 Appointment: Follow up 09/30/2014 Visit Plan: Chronic Depression and anxiety - the pt has symptoms of chronic anxiety and depression that have been uncontrolled since the last office visit. The pt has expected periods of exacerbation with abatement of the symptoms with change in situational exposure. Pt to increase dose of prozac to 40mg daily and use prn xanax for panic attacks 01/22/2014 Appointment: Kim Walker WPtel: [facility] [facility] Sick 01/22/2014 Patient Education: Patient Medication Summary Completed 01/22/2014 Care Plan: COMPLETE CBC AUTOMATED LOINC : 32205-3 Ordered 01/22/2014 Visit Plan: Blood in stool - pt did not have pain with palpation of anal sphincter - pt with history of of intermittent hemorrhoids in the past - the stool changes may simply be anal sphincter fissure, or a small i nternal hemorrhoid that is not currently inflammed, however, she needs a colonoscpy and she has been referred to Dr. Rodriguez for further work up. 02/07/2013 Appointment: Kim Walker WPtel: [facility] Follow up 02/07/2013 Patient Education: Patient Medication Summary Completed 02/07/2013 Visit Plan: Arthritis- occasionally uncontrolled symptoms- recommend pt to take antiinflammatory as directed for pain control. Use tylenol for break through pain symptoms.Start mobic daily Leg length discrepency - recommended pt to place: dr gilliland inserts- 2 in the left shoe 02/16/2012 Appointment: Kim Walker WPtel: [facility] Follow up 02/16/2012 Patient Education: Patient Medication Summary Completed 02/16/2012 Patient Education: Iliotibial Band Syndrome Exercises Completed 02/16/2012 Patient Education: Iliotibial Band Syndr ome Exercises, Page 2: Illustration Completed 02/16/2012 Patient Education: Iliotibial Band Syndr ome Exercises, Page 1: Illustration Completed 02/16/2012 Patient Education: .Amazing charts Exercise for Sciati ca Completed 02/16/2012 Visit Plan: Ilitibial band syndrome - recommended use of antiinflammatories and pt given handout on Ilitibial band exercises. Xrays of the hip today - pt sent to hospital with order for hip xrays. Mobic 7.5mg schedu led once daily and prn in the evening and tylenol daily for pain. Pt to RTC in a few weeks for re-eval. 01/24/2012 Appointment: Kim Walker WPtel: [phone] [facility] [place] Other 01/24/2012 Patient Education: Patient Medication Summary Completed 01/24/2012 Patient Education: Iliotibial Band Syndrome Exercises Completed 01/24/2012 Patient Education: Iliotibial Band Syndr ome Exercises, Page 2: Illustration Completed 01/24/2012 Patient Education: Iliotibial Band Syndr ome Exercises, Page 1: Illustration Completed 01/24/2012 Visit Plan: Well Adult Female - exa m completed. Pap and breast exam completed. Pt will be called with results of her testing. She was advised to continue with yearly annual exams. Safe sex practices discussed phillip brito office visit today. Call if any abnormal gynecologic issues during the next year, otherwise, RTC yearly or prn. Arthritis- occasionally uncontrolled symptoms- recommend pt to take antiinflammatory as directed for pain control. Use tylenol for break through pain symptoms. Aleve- do not take more than two times daily. 10/31/2011 Appointment: Kim Walker WPtel: [address] [place], [place] [phone] Well Woman 10/31/2011 Patient Education: Patient Medication Summary Completed 10/31/2011 Visit Plan: Arthritis- occasionally uncontrolled symptoms- recommend pt to take antiinflammatory as directed for pain control. Use tylenol for break through pain symptoms. Follow the Gout diet Use the VOLTAREN GEL FOUR TIMES DAILY. CALL IF THENTOE DOES NOT IMPROVE. Insomnia - Pt has been advised to increase the light in the house during the day, and start dimming the lights during the evening hours. Pt has been advised to cut out caffiene after 5pm. Daytime napping worsens night time insomnia. 10/13/2011 Appointment: Kim Walker WPtel: [address] [place], [place] [phone] New Patient 10/13/2011 Patient Education: Patient Medication Summary Completed 10/13/2011 Patient Education: Gout Completed 10/13/2011 Patient Education: Gout: Related Topics Completed 10/13/2011 Instructions Comment tylenol 2 tabs twice daily mri lumbar spine . Low back pain- patient's pain is actua lly improved -recommend MRI -refer to Dr Crouch if needed- okay to use tylenol for pain -also discussed PT if indicated- patient verbalized understanding of plan. . Afib-converted to NSR by Dr Solorzano-on xarelto-instructed patient to report if they start to feel as if their heart rate is becoming uncontrolled or other symptoms develop. Patient verbalized understanding. . Blood in stool - p t did not have pain with palpation of anal sphincter - pt with history of of intermittent hemorrhoids in the past - the stool changes may simply be anal sphincter fissure, or a small internal hemorrhoid that is not currently inflammed, however, she needs a colonoscpy and she has been referred to Dr. Rodriguez for further work up. INCREASE CARTIA TO 1 80MG DAILY EKG TO CONFIRM APPT WITH DR SOLORZANO . Afib-ordered EKG to confirm-increase c artia for heart rate control and start eliquis 5mg twice daily-follow up with Dr Solorzano Pneumonia-finished abx-no further treatment indicated . Well Adult Femal e - exam completed. Pap and breast exam completed. Pt will be called with results of her testing. She was advised to continue with yearly annual exams. Safe sex practices discussed during office visit today. Call if any abnormal gynecologic issues during the next year, otherwise, RTC yearly or prn. Arthritis- occasionally uncontrolled symptoms- recommend pt to take antiinflammatory as directed for pain control. Use tylenol for break through pain symptoms. Aleve- do not take more than two times daily. . Chronic Depression and anxiety - the pt has symptoms of chronic anxiety and depression that have been fairly well controlled since the last office visit. The pt has expected periods of exacerbation with abatement of the symptoms with change in situational exposure. No change in current medications. . Ilitibial band syn drome- recommended use of antiinflammatories and pt given handout on Ilitibial band exercises. Xrays of the hip today - pt sent to hospital with order for hip xrays. Mobic 7.5mg scheduled once daily and prn in the evening and tylenol daily for pain. Pt to RTC in a few weeks for re-eval. . Arthritis- occasi onally uncontrolled symptoms- recommend pt to take antiinflammatory as directed for pain control. Use tylenol for break through pain symptoms. Follow the Gout diet Use the VOLTAREN GEL FOUR TIMES DAILY. CALL IF THENTOE DOES NOT IMPROVE. Insomnia - Pt has been advised to increase the light in the house during the day, and start dimming the lights during the evening hours. Pt has been advised to cut out caffiene after 5pm. Daytime napping worsens night time insomnia. Annusol suppositorie s Follow up with Dr Lara . Rectal bleeding-history of internal he morrhoids per patient report-RX for annusol suppositories sent to patient's pharmacy and instructed on use-refer to Dr Lara for follow up Plan: (Q2036) VICKY SHEEHAN, 1 YRS & >, IM - pt to be called when office gets shots available. . Chronic Depression and anxiety - the p t has symptoms of chronic anxiety and depression that have been uncontrolled since the last office visit. The pt has expected periods of exacerbation with abatement of the symptoms with change in situational exposure. Pt to increase dose of prozac to 40mg daily and use prn xanax for panic attacks . Pneumonia-on abx p er urgent-continue current treatment and follow up in 1 week to ensure resolution of symptoms. Call sooner for worsening or new symptoms. Patient verbalized understanding of plan. . Atrial Fibrillatio n - pt on chronic anticoagulation and is currently rate controlled. The pt is to have labs done as appropriate to monitor medication levels and is to report if they start to feel as if their heart rate is becoming uncontrolled. IBS with diarrhea-chronic--rx for xifaxan provided and instructed on use Fatigue-weigh gain-check labs including TSH . Arthritis- occasi onally uncontrolled symptoms- recommend pt to take antiinflammatory as directed for pain control. Use tylenol for break through pain symptoms.Start mobic daily Leg length discrepency - recommended pt to place: dr gilliland inserts- 2 in the left shoe
--- OUTSIDE RECORDS SUMMARY | 2019-12-04 06:53 | XMS REPORT | CCD ---
Author Author Linda Walker Organization Kim Walker MD, [facility] Address [address] [place] [address] Phone Care Team Providers Care Rock Picker Name Role Phone PP Unavailable CCM Unavailable Summary Purpose Interface Exchange Insurance Providers Payer name Policy type / Coverage type Covered green party ID Effective Begin Date Effective End Date RACHEL GBA [id number] 2017 Unknown [employer] and [employer] [id number] Unknown Family history Mother Diagnosis Age At Onset Breast cancer Unknown Brother Diagnosis Age At Onset Arthritis Unknown Grandson Diagnosis Age At Onset Diabetes Unknown Social History Social History Element Codes Description Effective Dates Tobacco history SNOMED CT: 0742015 Former smoker quit 03/201301/22/2014 Employment Unknown Retir [...] Date Stop Date Sta tus Fill Instructions Xanax 0.25 mg tablet RxNorm: 333228 Tablet(s) TAKE 1/2 TO 1 (ONE-HALF TO ONE ) TABLET BY MOUTH 4 TIMES DAILY NEEDED 01/25/2019 No Stop Date Active Xanax 0.25 mg tablet RxNorm: 795942 Tablet(s) TAKE 1/2 TO 1 (ONE-HALF TO ONE ) TABLET BY MOUTH 4 TIMES DAILY NEEDED 11/27/2018 No Stop Date Active Cartia XT 180 mg cap clifford,extended release RxNorm: 386313 TAKE 1 CAPSULE BY ALEXANDER TH AT BEDTIME 11/05/2018 No Stop Date Active Synthroid 75 mcg tablet RxNorm: 903369 TAKE 1 TABLET BY MOUTH ONCE DAILY 10/17/2018 No Stop Date Active Prozac 40 mg capsule RxNorm: 172929 TAKE 1 CAPSULE BY MOUTH ONCE DAILY 10/08/2018 No Stop Date Active Xanax 0.25 mg tablet RxNorm: 550803 Tablet(s) TAKE 1/2 TO 1 (ONE-HALF TO ONE ) TABLET BY MOUTH 4 TIMES DAILY NEEDED 08/28/2018 01/24/2019 Inactive Cartia XT 180 mg cap clifford,extended release RxNorm: 792255 TAKE 1 CAPSULE BY ALEXANDER TH AT BEDTIME 07/30/2018 11/04/2018 Inactive Prozac 40 mg capsule RxNorm: 077596 TAKE ONE CAPSULE BY MOUTH ONCE DAILY 06/08/2018 10/07/2018 In active Xanax 0.25 mg tablet RxNorm: 735705 TAKE 1/2 TO 1 (ONE-HALF TO ONE) TABLET B Y MOUTH 4 TIMES DAILY NEEDED 05/18/2018 11/26/2018 Inactive Synthroid 75 mcg tablet RxNorm: 822808 1 Tablet(s) PO daily 03/29/2018 09/24/2018 Inactive will call for refill when ready Xanax 0.25 mg tablet RxNorm: 472724 1/2 - 1 Tablet(s) PO QID as needed anxie ty attack 01/24/2018 05/18/2018 Inactive Synthroid 25 mcg tablet RxNorm: 345688 1 Tablet(s) PO daily 12/15/2017 03/28/2018 Inactive take on an empty stomach by itself Flagyl 500 mg tablet RxNorm: 164315 1 Tablet(s) PO TID 12/15/2017 12/14/2017 Inactive Flagyl 500 mg tablet RxNorm: 961821 1 Tablet(s) PO TID 12/15/2017 12/24/2017 Inactive Synthroid 25 mcg tablet RxNorm: 914962 1 Tablet(s) PO daily 12/15/2017 12/14/2017 Inactive Fish Oil 360 mg-1,20 0 mg capsule,delayed release RxNorm: 1 Capsule(s) PO BID 12/14/2017 No Stop Date Active Xifaxan 550 mg tablet RxNorm: 368978 1 Tablet(s) PO TID 12/14/2017 12/27/2017 Inactive Xanax 0.25 mg tablet RxNorm: 062470 1/2 - 1 Tablet(s) PO QID as needed anxie ty attack 12/01/2017 07/11/2018 Inactive Xanax 0.25 mg tablet RxNorm: 408036 1/2 - 1 Tablet(s) PO QID as needed anxie ty attack 08/22/2017 08/28/2017 Inactive Cartia XT 180 mg cap clifford,extended release RxNorm: 684442 Capsule(s) TAKE ONE C APSULE BY MOUTH ONCE DAILY AT BEDTIME 08/04/2017 07/29/2018 Inactive Prozac 40 mg capsule RxNorm: 746590 Capsule(s) TAKE ONE CAPSULE BY MOUTH ONC E DAILY 06/08/2017 06/07/2018 Inactive Prozac 40 mg capsule RxNorm: 685165 TAKE ONE CAPSULE BY MOUTH ONCE DAILY 05/30/2017 06/07/2017 In active Cartia XT 180 mg cap clifford,extended release RxNorm: 525435 TAKE ONE CAPSULE BY M OUTH ONCE DAILY AT BEDTIME 05/08/2017 08/03/2017 Inactive Prozac 40 mg capsule RxNorm: 791314 TAKE ONE CAPSULE BY MOUTH ONCE DAILY 02/03/2017 05/29/2017 In active Eliquis 5 mg tablet RxNorm: 2294106 1 Tablet(s) PO BID 11/09/2016 12/05/2016 Inactive Eliquis 5 mg tablet RxNorm: 7687546 1 Tablet(s) PO BID 11/09/2016 11/08/2016 Inactive Cartia XT 180 mg cap clifford,extended release RxNorm: 704018 1 Capsule(s) PO QHS 11/08/2016 05/06/2017 In active Prozac 40 mg capsule RxNorm: 017298 TAKE ONE CAPSULE BY MOUTH ONCE DAILY 11/07/2016 02/02/2017 In active Phenergan with Codei ne Syrup RxNorm: 2.5 Milliliter(s) PO QHS as needed 10/28/2016 07/11/2018 In active levofloxacin 500 mg tablet RxNorm: 481649 1 Tablet(s) PO daily 10/28/2016 11/06/2016 Inactive Prozac 40 mg capsule RxNorm: 683509 TAKE ONE CAPSULE BY MOUTH ONCE DAILY 08/01/2016 10/29/2016 In active Prozac 40 mg capsule RxNorm: 542852 1 Capsule(s) PO daily 11/05/2015 05/02/2016 Inactive [SAVINGS FOR UNINSURED PATIENTS -- BIN:0 16617, PCN: ASPROD1, Group: [id number], ID# [id number], Process claim through [employer], for questions: . THIS IS NOT INSURANCE.] Xanax 0.25 mg tablet RxNorm: 290554 1/2 - 1 Tablet(s) PO QID as needed anxie ty attack 11/02/2015 01/29/2016 Inactive Prozac 40 mg capsule RxNorm: 285580 Capsule(s) TAKE ONE CAPSULE BY MOUTH ONC E DAILY 08/12/2015 08/11/2015 Inactive NEEDS APPT Prozac 40 mg capsule RxNorm: 453291 TAKE ONE CAPSULE BY MOUTH ONCE DAILY 08/12/2015 07/31/2016 In active hydrocortisone aceta te 25 mg rectal suppository RxNorm: 4358069 1 Suppository RTL QH S 10/02/2014 07/11/2018 Inactive daily HS x 1 week, then twice weekly the n as needed Prozac 40 mg capsule RxNorm: 710243 TAKE ONE CAPSULE BY MOUTH ONCE DAILY 07/31/2014 01/26/2015 In active Prozac 40 mg capsule RxNorm: 797743 1 Capsule(s) PO daily 07/30/2014 02/24/2015 Inactive [SAVINGS FOR NON-COVERED DRUGS -- BIN:00 3585, PCN: ASPROD1, Group: XXXXX, ID# [id number], Questions: . THIS IS NOT INSURANCE.] Xanax 0.25 mg tablet RxNorm: 471359 1/2 - 1 Tablet(s) PO QID as needed anxie ty attack 01/22/2014 03/22/2014 Inactive Prozac 40 mg capsule RxNorm: 766650 1 Capsule(s) PO daily 01/22/2014 07/20/2014 Inactive [SAVINGS FOR UNINSURED PATIENTS -- BIN:0 95468, PCN: ASPROD1, Group: [id number], ID# [id number], Process claim through [employer], for questions: . THIS IS NOT INSURANCE.] Prozac 20 mg capsule RxNorm: 010405 1 Capsule(s) PO daily 08/08/2013 01/21/2014 Inactive Prozac 20 mg capsule RxNorm: 269039 1 Capsule(s) PO daily 07/19/2013 08/07/2013 Inactive Prozac 20 mg capsule RxNorm: 665094 1 Capsule(s) PO daily 02/12/2013 07/18/2013 Inactive Influenza Virus Vacc ine 0.5 mL RxNorm: IM 02/16/2012 02/16/2012 Inactive meloxicam 7.5 mg tablet RxNorm: 663068 1 Tablet(s) PO BID ONE PILL IN MORNING, IF PAIN IS UNCONTROLLED, MAY TAKE ONE EXTRA PILL IN THe PM do not take with ibuprofen or aleve 01/24/2012 02/15/2012 Inactive Aspirin Low Dose 81 mg tablet,delayed release RxNorm: 676907 1 Tablet(s) PO daily No Start Date Active Tylenol 500 mg RxNorm: 1 Tablet(s) PO BID No Start Date Active Repatha SureClick 14 0 mg/mL subcutaneous pen injector RxNorm: 7605486 1 Milliliter(s) SQ Q2 weeks No Start Date Active amiodarone 200 mg ta blet RxNorm: 721430 1/2 Tablet(s) PO daily No Start Date Active melatonin 10 mg tablet RxNorm: 2217590 1 Tablet(s) PO QHS No Start Date Active pantoprazole 40 mg t ablet,delayed release RxNorm: 441503 1 Tablet(s) PO daily No Start Date Active isosorbide mononitra te ER 30 mg tablet,extended release 24 hr RxNorm: 727997 1 Tablet(s) PO daily No Start Date Active melatonin 3 mg Tab RxNorm: 244308 2 Tablet(s) PO QHS No Start Date 12/13/2017 Inactive Xarelto 20 mg tablet RxNorm: 2134184 1 Tablet(s) PO QPM No Start Date 12/13/2017 Inactive Tylenol 8 Hour 650 m g tablet,extended release RxNorm: 1319448 1 Tablet(s) PO BID No Start Date 07/12/2018 Inactive Calcium 600 + D(3) 6 00 mg (1,500 mg)-400 unit Tab RxNorm: 658230 1 Tablet(s) PO QPM No Start Date 12/13/2017 Inactive prasugrel 10 mg tablet RxNorm: 502948 1 Tablet(s) PO daily No Start Date 07/11/2018 Inactive Fish Oil 360 mg-1,20 0 mg capsule,delayed release RxNorm: 1 Capsule(s) PO daily No Start Date 12/13/2017 Inactive PreserVision AREDS 2 oral RxNorm: 9748691 oral No Start Date 07/11/2018 Inactive Prozac 20 mg capsule RxNorm: 486818 1 Capsule(s) PO daily No Start Date 02/11/2013 Inactive Breo Ellipta inhalation RxNorm: 7377023 inhalation No Start Date 12/13/2017 Inactive fenofibrate nanocrys tallized 145 mg tablet RxNorm: 218047 Tablet(s) PO daily No Start Date 10/31/2016 Inactive Centrum Silver Ultra Women's Tab RxNorm: 1 Tablet(s) PO QHS No Start Date 10/31/2016 Inactive Cartia XT 120 mg cap clifford,extended release RxNorm: 566219 1 Capsule(s) PO QHS No Start Date [...] function studies ICD-10: R94.6 ICD-9: 246.9 12/15/2017 Paroxysmal atrial fibrillation ICD-1 0: I48.0 ICD-9: 427.31 12/14/2017 Abnormal weight gain ICD-10: R63.5 ICD-9: 783.1 12/14/2017 Irritable bowel syndrome with diarrhea ICD-10: K58.0 ICD-9: 564.1 12/14/2017 Pneumonia, unspecified organism ICD- 10: J18.9 ICD-9: 486 11/08/2016 Cough ICD-10: R05 ICD-9: 786.2 11/01/2016 Generalized anxiety disorder ICD-10: F41.1 ICD-9: 300.02 11/05/2015 Rectal bleeding ICD-9: 569.3 10/02/2014 Depression ICD-9: 311 Anxiety, generalized ICD-9: 300.02 01/22/2014 Bloody feces ICD-9: 578.1 02/07/2013 VACCIN FOR INFLUENZA ICD-9: V04.81 02/16/2012 OSTEOARTH NOS-UNSPEC ICD-9: 715.90 02/16/2012 MUSCLE/LIGAMENT DIS NEC ICD-9: 728.89 02/16/2012 PAIN IN LIMB ICD-9: 729.5 01/24/2012 [...] Item Item Code Result Date Free T4 Ftx559 FREE T4 1.12 ng/dL 09/28/2018 Tsh Ord6 TSH (3rd IS) 3.54 uIU/mL 09/28/2018 Tsh Ord6 TSH (3rd IS) 4.90 uIU/mL 06/25/2018 Free T4 Iqz609 FREE T4 1.15 ng/dL 06/25/2018 Free T4 Cfp401 FREE T4 0.52 ng/dL 03/22/2018 Tsh Ord6 [...] 33.4 pg 12/15/2017 Cbc With Differential Ord2 [place]% 17.3 % 12/15/2017 Cbc With Differential Ord2 [...] 0.78 K/ul 12/15/2017 Cbc With Differential Ord2 [place] ABS# 0.4 K/ul 12/15/2017 Cbc With Differential Ord2 [place] ABS# 0.1 K/ul 12/15/2017 Cbc With Differential Ord2 Bas[place] ABS# 0.0 K/ul 12/15/2017 Free T4 Jfn660 FREE T4 0.34 ng/dL 12/15/2017 Test(s) Not Perfromed [id number] Test(s) Not Performed Test(s) Not Performed. See Below: 12/14/2017 Test(s) Not Perfromed [id number] TEST NAME CBC 12/14/2017 Test(s) Not Perfromed [id number] Rejection Reason No Suitable Specimen Receive d 12/14/2017 Test(s) Not Perfromed [id number] COMMENT Grace notified for redraw 12/14/2017 Test(s) Not Perfromed [id number] Branch Manager Trainee Wale Whitman 12/14/2017 Tsh Ord6 TSH (3rd IS) 48.79 uIU/mL 12/14/2017 Comp Metabolic Ain134 NA 137 mEq/L 12/14/2017 Comp Metabolic Xxd005 K 4.3 mEq/L 12/14/2017 Comp Metabolic Gfk553 CL 101 mEq/L 12/14/2017 Comp Metabolic Eus278 CO2 29.0 mEq/L 12/14/2017 Comp Metabolic Jac996 AN ION GAP 11 12/14/2017 Comp Metabolic Ptj046 GL UCOSE 81 mg/dL 12/14/2017 Comp Metabolic Ikm312 Cr eat 0.7 mg/dL 12/14/2017 Comp Metabolic Zfk606 eG FR 86 ml/min/1.73m2 12/14 Comp Metabolic Evg707 BUN 14 mg/dL 12/14/2017 Comp Metabolic Bkw908 B/ C Ratio 19.7 Ratio 12/14/2017 Comp Metabolic Uwu245 CA LCIUM 9.2 mg/dL 12/14/2017 Comp Metabolic Myx207 AL K PHOS 112 U/L 12/14/2017 Comp Metabolic Ypl214 T(SGOT) 25 U/L 12/14/2017 Comp Metabolic Kkb075 AL T(SGPT) 20 U/L 12/14/2017 Comp Metabolic Nkr980 BI LI T 0.8 mg/dL 12/14/2017 Comp Metabolic Wfw538 AL BUMIN 4.1 g/dL 12/14/2017 Comp Metabolic Vsw403 TP RO 6.9 g/dL 12/14/2017 Comp Metabolic Wzy670 GL OB 2.9 g/dL 12/14/2017 Comp Metabolic Axp423 A/ G Ratio 1.4 Ratio 12/14/2017 Comp Metabolic Jyj935 Os mo 273 mOsmo 12/14/2017 LIPID GRP HDL TE ST 70 MG/DL 01/23/2014 LIPID GRP TRIG 134 MG/DL 01/23/2014 LIPID GRP TEST L DL 117 MG/DL 01/23/2014 LIPID GRP CHOL 214 MG/DL 01/23/2014 LIPID GRP RCHOL/ HDL 3.06 RATIO 01/23/2014 LIPID GRP NON-HD L CH 144 MG/DL 01/23/2014 TSH 5099919 TSH 1.784 uIU/ML 01/23/2014 CBC 7616959 WBC 4.7 10e9/L 01/23/2014 CBC 5821421 RBC 4.10 10e12/L 01/23/2014 CBC 8741093 HGB 13.3 g/dL 01/23/2014 CBC 3212847 HCT DET 39.2 % 01/23/2014 CBC 6066484 MCV 95.6 fL 01/23/2014 CBC 4711093 MCH 32.4 pg 01/23/2014 CBC 5829301 MCHC 33.9 g/dL 01/23/2014 CBC 1637840 PLT 232 10e9/L 01/23/2014 CBC 6016460 MPV 10.9 fL 01/23/2014 CBC 8809133 DORON % 57.4 % 01/23/2014 CBC 9935470 LY % 28.0 % 01/23/2014 CBC 3648332 MON % 12.9 % 01/23/2014 CBC 8167059 EOS % 1.3 % 01/23/2014 CBC 9977721 BASO % 0.4 % 01/23/2014 CBC 6141671 RDW 12.1 % 01/23/2014 CBC 8974892 ABS DORON 2.70 10e9/L 01/23/2014 CBC 3820307 ABS LYMPH 1.32 10e9/L 01/23/2014 CBC 1960017 ABS MONO 0.61 10e9/L 01/23/2014 CBC 6200584 ABS EOS 0.06 10e9/L 01/23/2014 CBC 9196934 ABS BASO 0.02 10e9/L 01/23/2014 CBC 6113106 RDW-SD 41.2 fL 01/23/2014 CHEM 14 7014162 AST 18 U/L 01/23/2014 CHEM 14 4462928 ALT 13 IU/L 01/23/2014 CHEM 14 3948401 BUN 16 MG/DL 01/23/2014 CHEM 14 5341998 ALBUMIN 4.2 GM/DL 01/23/2014 CHEM 14 1974276 CHLORIDE 105 MMOL/L 01/23/2014 CHEM 14 0998061 BILI TOT 0.7 MG/DL 01/23/2014 CHEM 14 4078951 ALK PHOS 61 U/L 01/23/2014 CHEM 14 1603945 SODIUM 138 MMOL/L 01/23/2014 CHEM 14 9117264 CREATINI NE 0.65 MG/DL 01/23/2014 CHEM 14 0495228 CALCIUM 9.5 MG/DL 01/23/2014 CHEM 14 2760962 POTASSIUM 4.4 MMOL/L 01/23/2014 CHEM 14 8454241 PROT TOT 6.8 GM/DL 01/23/2014 CHEM 14 5943316 GLUCOSE 93 MG/DL 01/23/2014 CHEM 14 8169618 BICARB 28 MMOL/L 01/23/2014 CHEM 14 1893650 ANION GAP 5 MEQ/L 01/23/2014 GFR CALC 7859277 GFR AA >60 ML/MIN 01/23/2014 GFR CALC 9731356 GFR NON -AA >60 ML/MIN 01/23/2014 URIC ACID 5543363 URIC A KYLE 5.7 MG/DL 10/13/2011 CHEM 14 7368377 AST 19 U/L 10/13/2011 CHEM 14 0698459 ALT 16 U/L 10/13/2011 CHEM 14 4952738 BUN 21 MG/DL 10/13/2011 CHEM 14 8513513 ALBUMIN 4.2 GM/DL 10/13/2011 CHEM 14 8521680 CHLORIDE 103 MMOL/L 10/13/2011 CHEM 14 2112390 BILI TOT 0.6 MG/DL 10/13/2011 CHEM 14 8538787 ALK PHOS 71 U/L 10/13/2011 CHEM 14 2863134 SODIUM 141 MMOL/L 10/13/2011 CHEM 14 2636473 CREATINI NE 0.65 MG/DL 10/13/2011 CHEM 14 1685553 CALCIUM 9.3 MG/DL 10/13/2011 CHEM 14 9808281 POTASSIUM 4.2 MMOL/L 10/13/2011 CHEM 14 7829506 PROT TOT 6.8 GM/DL 10/13/2011 CHEM 14 6975225 GLUCOSE 69 MG/DL 10/13/2011 CHEM 14 6627874 BICARB 27 MMOL/L 10/13/2011 CHEM 14 7357079 ANION GAP 11 MMOL/L 10/13/2011 CBC 6359419 WBC 6.1 10e9/L 10/13/2011 CBC 7876197 RBC 4.11 10e12/L 10/13/2011 CBC 8621077 HGB 13.3 g/dL 10/13/2011 CBC 0775818 HCT DET 39.6 % 10/13/2011 CBC 3293720 MCV 96.4 fL 10/13/2011 CBC 9485079 MCH 32.4 pg 10/13/2011 CBC 4349557 MCHC 33.6 g/dL 10/13/2011 CBC 4816233 PLT 238 10e9/L 10/13/2011 CBC 4235153 MPV 11.7 fL 10/13/2011 CBC 7558213 DORON % 50.2 % 10/13/2011 CBC 1968638 LY % 35.6 % 10/13/2011 CBC 8282148 MON % 12.7 % 10/13/2011 CBC 1109144 EOS % 1.2 % 10/13/2011 CBC 5710173 BASO % 0.3 % 10/13/2011 CBC 6434458 RDW 12.3 % 10/13/2011 CBC 9840952 ABS DORON 3.06 10e9/L 10/13/2011 CBC 9992651 ABS LYMPH 2.17 10e9/L 10/13/2011 CBC 0578918 ABS MONO 0.77 10e9/L 10/13/2011 CBC 5317434 ABS EOS 0.07 10e9/L 10/13/2011 CBC 0728138 ABS BASO 0.02 10e9/L 10/13/2011 CBC 7165010 RDW-SD 42.3 fL 10/13/2011 GFR CALC 5231581 GFR AA >60 ML/MIN 10/13/2011 GFR CALC 3153612 GFR NON -AA >60 ML/MIN 10/13/2011 ESR 5985268 ESR 14 MM/HR 10/13/2011 Review of Systems [...] accomodation 02/07/2013 None Full Exam - General 1994 Ears/Nose/Throat [...] retractions 02/07/2013 None Full Exam - General 1995 Respiratory respiratory effort/rhythm Overall: normal rate 02/07/2013 [...] lesions 02/16/2012 None Full Exam - General 1995 Neurologic [...] sounds 01/24/2012 None Full Exam - General 1994 Musculoskeletal head and neck Overall: head atraumatic 01/24/2012 None Full Exam - General 1994 [...] unsteadiness 01/24/2012 None Full Exam - General 1994 [...] clear 10/31/2011 None Full Exam - General 1995 Ears/Nose/Throat [...] accomodation 10/13/2011 None Full Exam - General 1994 [...] SY CPT-4: G8553 01/24/2012 ROUTINE VENIPUNCTURE CPT-4: 25807 10/13/2011 Vital Signs Date Vital 07/12/2018 Blood Pressure 1: 126/68 Code: 8480-6 BMI: 28.4 Code: 82101-8 Heart Rate 1: 71 bpm Height: 5' SpO2: 97% Weight: 148 lbs 12/14/2017 Blood Pressure 1: 138/80 Code: 8480-6 BMI: 28.8 Code: 27405-7 Heart Rate 1: 73 bpm Height: 5' SpO2: 98% Weight: 150 lbs 12/06/2016 Blood Pressure 1: 146/82 Code: 8480-6 BMI: 26.8 Code: 58229-3 Heart Rate 1: 58 bpm Height: 5' [...] 1: 118/74 Code: 8480-6 BMI: 25.7 Code: 23778-4 Heart Rate 1: 64 bpm Height: 5' SpO2: 98% Weight: 134 lbs 10/02/2014 Blood Pressure 1: 136/88 Code: 8480-6 BMI: 25.9 Code: 27241-7 Heart Rate 1: 68 bpm Height: 5' SpO2: 98% Weight: 135 lbs 01/22/2014 Blood Pressure 1: 122/64 Code: 8480-6 BMI: 25.7 Code: 23653-5 Heart Rate 1: 72 bpm Height: 5' Weight: 134 lbs 02/07/2013 Blood Pressure 1: 140/80 Code: 8480-6 BMI: 23.6 Code: 42203-6 Height: 5' Weight: 123 lbs 02/16/2012 Blood Pressure 1: 102/68 Code: 8480-6 Heart Rate 1: 68 bpm Respiratory Rate: 18 bpm Weight: 131 lbs 01/24/2012 Blood Pressure 1: 120/72 Code: 8480-6 Heart Rate 1: 72 bpm Respiratory Rate: 16 bpm Weight: 133 lbs 10/31/2011 Blood Pressure 1: 136/84 Code: 8480-6 BMI: 23.2 Code: 22990-8 Heart Rate 1: 74 bpm Height: 5'2" Respiratory Rate: 16 bpm Weight: 127 lbs 10/13/2011 Blood Pressure 1: 138/84 Code: 8480-6 BMI: 23.2 Code: 03274-1 Heart Rate 1: 80 bpm Height: 5'2" Respiratory Rate: 16 bpm Weight: 127 lbs Functional Status No Functional Status data History of Present Illness Symptom Name Status Resu lt Effective Date Notes Onset and Resolution o ngoing 07/12/2018 None Location in the [facility] e of in the lower back area [...] 11/08/2016 None Hospital Follow Up _ [facility] 11/08/2016 None Hospital Follow Up Quality acute illness 11/08/2016 None Hospital Follow Up Pertinent Findings Other: cough 11/08/2016 None Hospital Follow Up _ inf ection 11/01/2016 None Hospital Follow Up _ [facility] 11/01/2016 None Hospital Follow Up Quality acute [...] Quality blee ding 02/07/2013 None hemorrhoids 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 P ATIENT, LEVEL III Diagnosis: Low back pain[ICD10: M54.5] Jennifer Walker MD, [facility] CPT- 4: 35715 07/12/2018 ([id number]) 40765 EST. P ATIENT, LEVEL IV Diagnosis: Paroxysmal atrial fibrillation[ICD10: I48.0] Diagnosis: Abnormal weight gain[ICD10: R63.5] Diagnosis: Irritable bowel syndrome with diarrhea[ICD10: K58.0] Jennifer Walker MD, [facility] CPT-4: 76119 12/14/2017 ([id number]) 39386 EST. P ATIENT, LEVEL III Diagnosis: Paroxysmal atrial fibrillation[ICD10: I48.0] Jennifer Walker MD, [facility] CPT-4: 45189 12/06/2016 ([id number]) 90181 EST. P ATIENT, LEVEL IV Diagnosis: Paroxysmal atrial fibrillation[ICD10: I48.0] Diagnosis: Pneumonia, unspecified organism[ICD10: J18.9] Jennifer Walker MD, [facility] CPT-4: 97869 11/08/2016 ([id number]) 84796 EST. P ATIENT, LEVEL III Diagnosis: Cough[ICD10: R05] Diagnosis: Pneumonia, unspecified organism[ICD10: J18.9] Jennifer Walker MD, [facility] CPT-4: 34829 11/01/2016 ([id number]) 75667 EST. P ATIENT, LEVEL III Diagnosis: Generalized anxiety disorder[ICD10: F41.1] Jennifer Walker MD, [facility] CPT-4: 40223 11/05/2015 ([id number]) 93998 EST. P ATIENT, LEVEL III Diagnosis: Rectal bleeding[ICD9: 569.3] Jennifer Walker MD, [facility] CPT- 4: 05235 10/02/2014 ([id number]) 92531 EST. P ATIENT, LEVEL III Diagnosis: Anxiety, generalized[ICD9: 300.02] Diagnosis: Depression[ICD9: 311] Kim Walker MD, [facility] CPT-4: 89194 01/22/2014 ([id number]) 62309 EST. P ATIENT, LEVEL III Diagnosis: Bloody feces[ICD9: 578.1] Kim Walker MD, [facility] CPT-4: 14464 02/07/2013 ([id number]) 64296 EST. P ATIENT, LEVEL III Diagnosis: OSTEOARTH NOS-UNSPEC[ICD9: 715.90] Diagnosis: MUSCLE/LIGAMENT DIS NEC[ICD9: 728.89] Kim Walker MD, [facility] CPT-4: 88789 02/16/2012 ([id number]) 25476 EST. P ATIENT, LEVEL III Diagnosis: Iliotibial band syndrome[ICD9: 728.89] Diagnosis: OSTEOARTH NOS-UNSPEC[ICD9: 715.90] Diagnosis: PAIN IN LIMB[ICD9: 729.5] Kim Walker MD, [facility] CPT-4: 25960 01/24/2012 ([id number]) 11018 EST. P ATIENT, LEVEL IV Diagnosis: OSTEOARTH NOS-UNSPEC[ICD9: 715.90] Diagnosis: ROUTINE GYNE EXAM[ICD9: V72.31] Kim Walker MD, [facility] CPT-4: 93557 10/31/2011 OFFICE VISIT, NEW - LEVEL 4 Diagnosis: Osteoarthritis[ICD9: 715.90] Diagnosis: INSOMNIA NOS[ICD9: 780.52] Diagnosis: PAIN IN LIMB[ICD9: 729.5] Kim Walker MD, [facility] CPT-4: 47625 10/13/2011 Plan of Care Planned Activity Notes C odes Status Date Visit Plan: Low back pain- patient' s pain is actually improved -recommend MRI -refer to Dr Crouch if needed- okay to use tylenol for pain -also discussed PT if indicated-patient verbalized understanding of plan. 07/12/2018 Appointment: Jennifer Vera WPtel: [phone] (30 min) Complex 07/12/2018 Patient Education: Patient Medication Summary Completed 07/12/2018 Patient Education: Back Pain Completed 07/12/2018 Care Plan: MRI LUMBAR SPINE W/O DYE LOINC : 55274-7 Pending 07/12/2018 Patient Education: Patient Medication Summary [...] including TSH 12/14/2017 Appointment: Jennifer Vera WPtel: [phone] (15 min) Moderate 12/14/2017 Patient Education: Patient Medication Summary Completed 12/14/2017 Care Plan: Cbc With Differential Pending 12/14/2017 Visit Plan: Afib-converted to NSR b y Dr Solorzano-on xarelto- instructed patient to report if they start to feel as if their heart rate is becoming uncontrolled or other symptoms develop. Patient verbalized drew iverson. 12/06/2016 Appointment: Jennifer Vera WPtel: [phone] (15 min) Moderate 12/06/2016 Patient Education: Patient Medication Summary Completed 12/06/2016 Visit Plan: Afib-ordered EKG to con firm-increase cartia for heart rate control and start eliquis 5mg twice daily-follow up with Dr Solorzano Pneumonia-finished abx-no further treatment indicated 11/08/2016 Appointment: Jennifer Vera WPtel: [phone] [place] (30 min) Complex 11/08/2016 Patient Education: Patient Medication Summary Completed 11/08/2016 Visit Plan: Pneumonia-on abx per ur gent-continue current treatment and follow up in 1 week to ensure resolution of symptoms. Call sooner for worsening or new symptoms. Patient verbalized understanding of plan. 11/01/2016 Appointment: Jennifer Vera WPtel: [phone] [phone] (15 min) Moderate 11/01/2016 Patient Education: Patient [...] current medications. 11/05/2015 Appointment: Jennifer Vera WPtel: [phone] [phone] (15 min) Moderate 11/05/2015 Patient Education: Patient [...] panic attacks 01/22/2014 Appointment: Kim Walker WPtel: [phone] Sick 01/22/2014 Patient Education: Patient Medication Summary Completed 01/22/2014 Care Plan: COMPLETE CBC AUTOMATED LOINC : 16015-5 Ordered 01/22/2014 Visit Plan: Blood in stool [...] work up. 02/07/2013 Appointment: Kim Walker WPtel: [phone] [id number] [place] Follow up 02/07/2013 Patient Education: Patient Medication Summary Completed 02/07/2013 Visit Plan: Arthritis- occasionally uncontrolled symptoms- recommend pt to take antiinflammatory as directed for pain control. Use tylenol for break through pain symptoms.Start mobic daily Leg length discrepency - recommended pt to place: dr gilliland inserts- 2 in the left shoe 02/16/2012 Appointment: Kim Walker WPtel: [phone] [id number] Follow up 02/16/2012 Patient Education: Patient [...] for re-eval. 01/24/2012 Appointment: Kim Walker WPtel: [id number] [place] Other 01/24/2012 Patient Education: Patient [...] times daily. 10/31/2011 Appointment: Kim Walker WPtel: [id number] [facility] 10/31/2011 Patient Education: Patient Medication [...] time insomnia. 10/13/2011 Appointment: Kim Walker WPtel: [facility] [facility] New Patient 10/13/2011 Patient Education: Patient Medication [...] Dr Lara for follow up Plan: (Q2036) FLULAV AL VACC, 3 YRS & >, IM - pt [...]
--- OUTSIDE RECORDS SUMMARY | 2019-12-04 06:54 | XMS REPORT | CCD ---
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 Name Role Phone PP Unavailable CCM Unavailable Summary Purpose Interface Exchange Insurance Providers Payer name Policy type / Coverage type Covered alliance party ID Effective Begin Date Effective End Date RACHEL GBA [id number] 2017 Unknown [employer] [id number] Unknown Family history Mother Diagnosis Age At Onset Breast cancer Unknown Brother Diagnosis Age At Onset Arthritis Unknown Grandson Diagnosis Age At Onset Diabetes Unknown Social History Social History Element Codes Description Effective Dates Tobacco history SNOMED CT: 9666954 Former smoker quit 03/201301/22/2014 Employment Unknown Retir [...] Fill Instructions Xanax 0.25 mg tablet RxNorm: 262715 Tablet(s) TAKE 1/2 TO 1 (ONE-HALF TO ONE ) TABLET BY MOUTH 4 TIMES DAILY NEEDED 11/27/2018 01/23/2019 Inactive Cartia XT 180 mg cap clifford,extended release RxNorm: 033850 TAKE 1 CAPSULE BY ALEXANDER TH AT BEDTIME 11/05/2018 No Stop Date Active Synthroid 75 mcg tablet RxNorm: 841431 TAKE 1 TABLET BY MOUTH ONCE DAILY 10/17/2018 No Stop Date Active Prozac 40 mg capsule RxNorm: 516632 TAKE 1 CAPSULE BY MOUTH ONCE DAILY 10/08/2018 No Stop Date Active Xanax 0.25 mg tablet RxNorm: 309673 Tablet(s) TAKE 1/2 TO 1 (ONE-HALF TO ONE ) TABLET BY MOUTH 4 TIMES DAILY NEEDED 08/28/2018 No Stop Date Active Cartia XT 180 mg cap clifford,extended release RxNorm: 733590 TAKE 1 CAPSULE BY ALEXANDER TH AT BEDTIME 07/30/2018 11/04/2018 Inactive Prozac 40 mg capsule RxNorm: 227727 TAKE ONE CAPSULE BY MOUTH ONCE DAILY 06/08/2018 10/07/2018 In active Xanax 0.25 mg tablet RxNorm: 320385 TAKE 1/2 TO 1 (ONE-HALF TO ONE) TABLET B Y MOUTH 4 TIMES DAILY NEEDED 05/18/2018 11/26/2018 Inactive Synthroid 75 mcg tablet RxNorm: 274806 1 Tablet(s) PO daily 03/29/2018 09/24/2018 Inactive will call for refill when ready Xanax 0.25 mg tablet RxNorm: 869936 1/2 - 1 Tablet(s) PO QID as needed anxie ty attack 01/24/2018 05/18/2018 Inactive Synthroid 25 mcg tablet RxNorm: 966010 1 Tablet(s) PO daily 12/15/2017 03/28/2018 Inactive take on an empty stomach by itself Flagyl 500 mg tablet RxNorm: 150614 1 Tablet(s) PO TID 12/15/2017 12/14/2017 Inactive Flagyl 500 mg tablet RxNorm: 245056 1 Tablet(s) PO TID 12/15/2017 12/24/2017 Inactive Synthroid 25 mcg tablet RxNorm: 378494 1 Tablet(s) PO daily 12/15/2017 12/14/2017 Inactive Fish Oil 360 mg-1,20 0 mg capsule,delayed release RxNorm: 1 Capsule(s) PO BID 12/14/2017 No Stop Date Active Xifaxan 550 mg tablet RxNorm: 240306 1 Tablet(s) PO TID 12/14/2017 12/27/2017 Inactive Xanax 0.25 mg tablet RxNorm: 675283 1/2 - 1 Tablet(s) PO QID as needed anxie ty attack 12/01/2017 07/11/2018 Inactive Xanax 0.25 mg tablet RxNorm: 571054 1/2 - 1 Tablet(s) PO QID as needed anxie ty attack 08/22/2017 08/28/2017 Inactive Cartia XT 180 mg cap clifford,extended release RxNorm: 611577 Capsule(s) TAKE ONE C APSULE BY MOUTH ONCE DAILY AT BEDTIME 08/04/2017 07/29/2018 Inactive Prozac 40 mg capsule RxNorm: 789788 Capsule(s) TAKE ONE CAPSULE BY MOUTH ONC E DAILY 06/08/2017 06/07/2018 Inactive Prozac 40 mg capsule RxNorm: 157503 TAKE ONE CAPSULE BY MOUTH ONCE DAILY 05/30/2017 06/07/2017 In active Cartia XT 180 mg cap clifford,extended release RxNorm: 594392 TAKE ONE CAPSULE BY M OUTH ONCE DAILY AT BEDTIME 05/08/2017 08/03/2017 Inactive Prozac 40 mg capsule RxNorm: 814127 TAKE ONE CAPSULE BY MOUTH ONCE DAILY 02/03/2017 05/29/2017 In active Eliquis 5 mg tablet RxNorm: 1656684 1 Tablet(s) PO BID 11/09/2016 12/05/2016 Inactive Eliquis 5 mg tablet RxNorm: 4006008 1 Tablet(s) PO BID 11/09/2016 11/08/2016 Inactive Cartia XT 180 mg cap clifford,extended release RxNorm: 235721 1 Capsule(s) PO QHS 11/08/2016 05/06/2017 In active Prozac 40 mg capsule RxNorm: 776943 TAKE ONE CAPSULE BY MOUTH ONCE DAILY 11/07/2016 02/02/2017 In active Phenergan with Codei ne Syrup RxNorm: 2.5 Milliliter(s) PO QHS as needed 10/28/2016 07/11/2018 In active levofloxacin 500 mg tablet RxNorm: 282891 1 Tablet(s) PO daily 10/28/2016 11/06/2016 Inactive Prozac 40 mg capsule RxNorm: 558232 TAKE ONE CAPSULE BY MOUTH ONCE DAILY 08/01/2016 10/29/2016 In active Prozac 40 mg capsule RxNorm: 919256 1 Capsule(s) PO daily 11/05/2015 05/02/2016 Inactive [SAVINGS FOR UNINSURED PATIENTS -- BIN:0 06954, PCN: ASPROD1, Group: [id number], ID# [id number], Process claim through [employer], for questions: . THIS IS NOT INSURANCE.] Xanax 0.25 mg tablet RxNorm: 205453 1/2 - 1 Tablet(s) PO QID as needed anxie ty attack 11/02/2015 01/29/2016 Inactive Prozac 40 mg capsule RxNorm: 845457 Capsule(s) TAKE ONE CAPSULE BY MOUTH ONC E DAILY 08/12/2015 08/11/2015 Inactive NEEDS APPT Prozac 40 mg capsule RxNorm: 282357 TAKE ONE CAPSULE BY MOUTH ONCE DAILY 08/12/2015 07/31/2016 In active hydrocortisone aceta te 25 mg rectal suppository RxNorm: 0470993 1 Suppository RTL QH S 10/02/2014 07/11/2018 Inactive daily HS x 1 week, then twice weekly the n as needed Prozac 40 mg capsule RxNorm: 056424 TAKE ONE CAPSULE BY MOUTH ONCE DAILY 07/31/2014 01/26/2015 In active Prozac 40 mg capsule RxNorm: 081704 1 Capsule(s) PO daily 07/30/2014 02/24/2015 Inactive [SAVINGS FOR NON-COVERED DRUGS -- BIN:00 3585, PCN: ASPROD1, Group: XXXXX, ID# [id number], Questions: . THIS IS NOT INSURANCE.] Xanax 0.25 mg tablet RxNorm: 461699 1/2 - 1 Tablet(s) PO QID as needed anxie ty attack 01/22/2014 03/22/2014 Inactive Prozac 40 mg capsule RxNorm: 184647 1 Capsule(s) PO daily 01/22/2014 07/20/2014 Inactive [SAVINGS FOR UNINSURED PATIENTS -- BIN:0 07467, PCN: ASPROD1, Group: [id number], ID# [id number], Process claim through [employer], for questions: . THIS IS NOT INSURANCE.] Prozac 20 mg capsule RxNorm: 267704 1 Capsule(s) PO daily 08/08/2013 01/21/2014 Inactive Prozac 20 mg capsule RxNorm: 038367 1 Capsule(s) PO daily 07/19/2013 08/07/2013 Inactive Prozac 20 mg capsule RxNorm: 206485 1 Capsule(s) PO daily 02/12/2013 07/18/2013 Inactive Influenza Virus Vacc ine 0.5 mL RxNorm: IM 02/16/2012 02/16/2012 Inactive meloxicam 7.5 mg tablet RxNorm: 679642 1 Tablet(s) PO BID ONE PILL IN MORNING, IF PAIN IS UNCONTROLLED, MAY TAKE ONE EXTRA PILL IN THe PM do not take with ibuprofen or aleve 01/24/2012 02/15/2012 Inactive Aspirin Low Dose 81 mg tablet,delayed release RxNorm: 064068 1 Tablet(s) PO daily No Start Date Active Tylenol 500 mg RxNorm: 1 Tablet(s) PO BID No Start Date Active Mahesh Deeick 14 0 mg/mL subcutaneous pen injector RxNorm: 8130129 1 Milliliter(s) SQ Q2 weeks No Start Date Active amiodarone 200 mg ta blet RxNorm: 226081 1/2 Tablet(s) PO daily No Start Date Active melatonin 10 mg tablet RxNorm: 3626875 1 Tablet(s) PO QHS No Start Date Active pantoprazole 40 mg t ablet,delayed release RxNorm: 423431 1 Tablet(s) PO daily No Start Date Active isosorbide mononitra te ER 30 mg tablet,extended release 24 hr RxNorm: 523058 1 Tablet(s) PO daily No Start Date Active melatonin 3 mg Tab RxNorm: 859242 2 Tablet(s) PO QHS No Start Date 12/13/2017 Inactive Xarelto 20 mg tablet RxNorm: 7960613 1 Tablet(s) PO QPM No Start Date 12/13/2017 Inactive Tylenol 8 Hour 650 m g tablet,extended release RxNorm: 4483032 1 Tablet(s) PO BID No Start Date 07/12/2018 Inactive Calcium 600 + D(3) 6 00 mg (1,500 mg)-400 unit Tab RxNorm: 047237 1 Tablet(s) PO QPM No Start Date 12/13/2017 Inactive prasugrel 10 mg tablet RxNorm: 266613 1 Tablet(s) PO daily No Start Date 07/11/2018 Inactive Fish Oil 360 mg-1,20 0 mg capsule,delayed release RxNorm: 1 Capsule(s) PO daily No Start Date 12/13/2017 Inactive PreserVision AREDS 2 oral RxNorm: 9110284 oral No Start Date 07/11/2018 Inactive Prozac 20 mg capsule RxNorm: 931910 1 Capsule(s) PO daily No Start Date 02/11/2013 Inactive Breo Ellipta inhalation RxNorm: 1139405 inhalation No Start Date 12/13/2017 Inactive fenofibrate nanocrys tallized 145 mg tablet RxNorm: 864422 Tablet(s) PO daily No Start Date 10/31/2016 Inactive Centrum Silver Ultra Women's Tab RxNorm: 1 Tablet(s) PO QHS No Start Date 10/31/2016 Inactive Cartia XT 120 mg cap clifford,extended release RxNorm: 952996 1 Capsule(s) PO QHS No Start Date [...] Item Item Code Result Date Free T4 [id number] FREE T4 1.12 ng/dL 09/28/2018 Tsh Ord6 TSH (3rd IS) 3.54 uIU/mL 09/28/2018 Tsh Ord6 TSH (3rd IS) 4.90 uIU/mL 06/25/2018 Free T4 Wvs661 FREE T4 1.15 ng/dL 06/25/2018 Free T4 Ddu510 FREE T4 0.52 ng/dL 03/22/2018 Tsh Ord6 [...] 33.4 pg 12/15/2017 Cbc With Differential Ord2 [place]% 17.3 % 12/15/2017 Cbc With Differential Ord2 [...] 0.78 K/ul 12/15/2017 Cbc With Differential Ord2 [place] ABS# 0.4 K/ul 12/15/2017 Cbc With Differential Ord2 Eos ABS# 0.1 K/ul 12/15/2017 Cbc With Differential Ord2 Baso ABS# 0.0 K/ul 12/15/2017 Free T4 Rgl255 FREE T4 0.34 ng/dL 12/15/2017 Test(s) Not Perfromed [id number] Test(s) Not Performed Test(s) Not Performed. See Below: 12/14/2017 Test(s) Not Perfromed [id number] TEST NAME CBC 12/14/2017 Test(s) Not Perfromed [id number] Rejection Reason No Suitable Specimen Receive d 12/14/2017 Test(s) Not Perfromed [id number] COMMENT Grace notified for redraw 12/14/2017 Test(s) Not Perfromed [id number] Quality Assurance Supervisor Chassis Wale J Carlos 12/14/2017 Tsh Ord6 TSH (3rd IS) 48.79 uIU/mL 12/14/2017 Comp Metabolic Oxn126 NA 137 mEq/L 12/14/2017 Comp Metabolic Lfr998 K 4.3 mEq/L 12/14/2017 Comp Metabolic Vzg488 CL 101 mEq/L 12/14/2017 Comp Metabolic Xyz059 CO2 29.0 mEq/L 12/14/2017 Comp Metabolic Xvz573 AN ION GAP 11 12/14/2017 Comp Metabolic Vyj880 GL UCOSE 81 mg/dL 12/14/2017 Comp Metabolic Jgp862 Cr eat 0.7 mg/dL 12/14/2017 Comp Metabolic Ubz401 eG FR 86 ml/min/1.73m2 12/14 Comp Metabolic Idf434 BUN 14 mg/dL 12/14/2017 Comp Metabolic Qmt108 B/ C Ratio 19.7 Ratio 12/14/2017 Comp Metabolic Cqs781 CA LCIUM 9.2 mg/dL 12/14/2017 Comp Metabolic Ukk646 AL K PHOS 112 U/L 12/14/2017 Comp Metabolic Yri644 T(SGOT) 25 U/L 12/14/2017 Comp Metabolic Ikm994 AL T(SGPT) 20 U/L 12/14/2017 Comp Metabolic Mtp946 BI LI T 0.8 mg/dL 12/14/2017 Comp Metabolic Qzw778 AL BUMIN 4.1 g/dL 12/14/2017 Comp Metabolic Vhm439 TP RO 6.9 g/dL 12/14/2017 Comp Metabolic Kti571 GL OB 2.9 g/dL 12/14/2017 Comp Metabolic Oim521 A/ G Ratio 1.4 Ratio 12/14/2017 Comp Metabolic Pxe716 Os mo 273 mOsmo 12/14/2017 LIPID GRP HDL TE ST 70 MG/DL 01/23/2014 LIPID GRP TRIG 134 MG/DL 01/23/2014 LIPID GRP TEST L DL 117 MG/DL 01/23/2014 LIPID GRP CHOL 214 MG/DL 01/23/2014 LIPID GRP RCHOL/ HDL 3.06 RATIO 01/23/2014 LIPID GRP NON-HD L CH 144 MG/DL 01/23/2014 TSH 4243037 TSH 1.784 uIU/ML 01/23/2014 CBC 9898355 WBC 4.7 10e9/L 01/23/2014 CBC 3869644 RBC 4.10 10e12/L 01/23/2014 CBC 4759995 HGB 13.3 g/dL 01/23/2014 CBC 1336460 HCT DET 39.2 % 01/23/2014 CBC 5617386 MCV 95.6 fL 01/23/2014 CBC 8880955 MCH 32.4 pg 01/23/2014 CBC 4823213 MCHC 33.9 g/dL 01/23/2014 CBC 1061791 PLT 232 10e9/L 01/23/2014 CBC 3951279 MPV 10.9 fL 01/23/2014 CBC 9411789 DORON % 57.4 % 01/23/2014 CBC 3552276 LY % 28.0 % 01/23/2014 CBC 3747051 MON % 12.9 % 01/23/2014 CBC 1754231 EOS % 1.3 % 01/23/2014 CBC 0958488 BASO % 0.4 % 01/23/2014 CBC 6591897 RDW 12.1 % 01/23/2014 CBC 2182650 ABS DORON 2.70 10e9/L 01/23/2014 CBC 5638379 ABS LYMPH 1.32 10e9/L 01/23/2014 CBC 7659371 ABS MONO 0.61 10e9/L 01/23/2014 CBC 2295965 ABS EOS 0.06 10e9/L 01/23/2014 CBC 9023730 ABS BASO 0.02 10e9/L 01/23/2014 CBC 2833793 RDW-SD 41.2 fL 01/23/2014 CHEM 14 7523108 AST 18 U/L 01/23/2014 CHEM 14 0770148 ALT 13 IU/L 01/23/2014 CHEM 14 8688261 BUN 16 MG/DL 01/23/2014 CHEM 14 4799660 ALBUMIN 4.2 GM/DL 01/23/2014 CHEM 14 4599465 CHLORIDE 105 MMOL/L 01/23/2014 CHEM 14 8805608 BILI TOT 0.7 MG/DL 01/23/2014 CHEM 14 9059472 ALK PHOS 61 U/L 01/23/2014 CHEM 14 9332916 SODIUM 138 MMOL/L 01/23/2014 CHEM 14 1955621 CREATINI NE 0.65 MG/DL 01/23/2014 CHEM 14 3208665 CALCIUM 9.5 MG/DL 01/23/2014 CHEM 14 7165741 POTASSIUM 4.4 MMOL/L 01/23/2014 CHEM 14 7536624 PROT TOT 6.8 GM/DL 01/23/2014 CHEM 14 7239011 GLUCOSE 93 MG/DL 01/23/2014 CHEM 14 5109703 BICARB 28 MMOL/L 01/23/2014 CHEM 14 5284395 ANION GAP 5 MEQ/L 01/23/2014 GFR CALC 0840717 GFR AA >60 ML/MIN 01/23/2014 GFR CALC 0870277 GFR NON -AA >60 ML/MIN 01/23/2014 URIC ACID 5830348 URIC A KYLE 5.7 MG/DL 10/13/2011 CHEM 14 6228087 AST 19 U/L 10/13/2011 CHEM 14 9229002 ALT 16 U/L 10/13/2011 CHEM 14 4383272 BUN 21 MG/DL 10/13/2011 CHEM 14 8466158 ALBUMIN 4.2 GM/DL 10/13/2011 CHEM 14 5608499 CHLORIDE 103 MMOL/L 10/13/2011 CHEM 14 2299036 BILI TOT 0.6 MG/DL 10/13/2011 CHEM 14 7707549 ALK PHOS 71 U/L 10/13/2011 CHEM 14 6116473 SODIUM 141 MMOL/L 10/13/2011 CHEM 14 1616110 CREATINI NE 0.65 MG/DL 10/13/2011 CHEM 14 4790165 CALCIUM 9.3 MG/DL 10/13/2011 CHEM 14 5435092 POTASSIUM 4.2 MMOL/L 10/13/2011 CHEM 14 4481690 PROT TOT 6.8 GM/DL 10/13/2011 CHEM 14 8215608 GLUCOSE 69 MG/DL 10/13/2011 CHEM 14 5601068 BICARB 27 MMOL/L 10/13/2011 CHEM 14 0461813 ANION GAP 11 MMOL/L 10/13/2011 CBC 1349980 WBC 6.1 10e9/L 10/13/2011 CBC 3810346 RBC 4.11 10e12/L 10/13/2011 CBC 8907904 HGB 13.3 g/dL 10/13/2011 CBC 0058880 HCT DET 39.6 % 10/13/2011 CBC 7094625 MCV 96.4 fL 10/13/2011 CBC 3109153 MCH 32.4 pg 10/13/2011 CBC 5632160 MCHC 33.6 g/dL 10/13/2011 CBC 9869798 PLT 238 10e9/L 10/13/2011 CBC 9596145 MPV 11.7 fL 10/13/2011 CBC 6627167 DORON % 50.2 % 10/13/2011 CBC 9549184 LY % 35.6 % 10/13/2011 CBC 8701694 MON % 12.7 % 10/13/2011 CBC 7249256 EOS % 1.2 % 10/13/2011 CBC 2882265 BASO % 0.3 % 10/13/2011 CBC 8098539 RDW 12.3 % 10/13/2011 CBC 1833122 ABS DORON 3.06 10e9/L 10/13/2011 CBC 8063120 ABS LYMPH 2.17 10e9/L 10/13/2011 CBC 8393556 ABS MONO 0.77 10e9/L 10/13/2011 CBC 9884663 ABS EOS 0.07 10e9/L 10/13/2011 CBC 7502808 ABS BASO 0.02 10e9/L 10/13/2011 CBC 9880065 RDW-SD 42.3 fL 10/13/2011 GFR CALC 1747128 GFR AA >60 ML/MIN 10/13/2011 GFR CALC 3470459 GFR NON -AA >60 ML/MIN 10/13/2011 ESR 3009270 ESR 14 MM/HR 10/13/2011 Review of Systems [...] accomodation 11/01/2016 None Full Exam - General 1995 [...] sounds 01/22/2014 None Full Exam - General 1995 Musculoskeletal lower extremity Palpation - knee: crepitus [...] clear 02/07/2013 None Full Exam - General 1994 Ears/Nose/Throat otoscopic exam Overall: tympanic membranes clear 02/07/2013 None Full Exam - General 1994 [...] clear 02/16/2012 None Full Exam - General 1995 Ears/Nose/Throat oral cavity/pharynx/larynx Overall: no masses 02/16/2012 [...] lesions 01/24/2012 None Full Exam - General 1995 [...] affect 01/24/2012 None Full Exam - General 1995 Psychiatric mood and affect Mood: happy 01/24/2012 None Full Exam - General 1995 Psychiatric appearance Overall: well-groomed, good eye contact [...] 1995 Ears/Nose/Throat oral cavity/pharynx/larynx Overall: no masses 10/31/2011 [...] 1995 Ears/Nose/Throat oral cavity/pharynx/larynx Overall: no masses 10/13/2011 [...] SY CPT-4: G8553 01/24/2012 ROUTINE VENIPUNCTURE CPT-4: 24542 10/13/2011 Vital Signs Date Vital 07/12/2018 Blood Pressure 1: 126/68 Code: 8480-6 BMI: 28.4 Code: 82543-2 Heart Rate 1: 71 bpm Height: 5' SpO2: 97% Weight: 148 lbs 12/14/2017 Blood Pressure 1: 138/80 Code: 8480-6 BMI: 28.8 Code: 15205-0 Heart Rate 1: 73 bpm Height: 5' SpO2: 98% Weight: 150 lbs 12/06/2016 Blood Pressure 1: 146/82 Code: 8480-6 BMI: 26.8 Code: 40083-7 Heart Rate 1: 58 bpm Height: 5' [...] 1: 118/74 Code: 8480-6 BMI: 25.7 Code: 39884-1 Heart Rate 1: 64 bpm Height: 5' SpO2: 98% Weight: 134 lbs 10/02/2014 Blood Pressure 1: 136/88 Code: 8480-6 BMI: 25.9 Code: 91348-6 Heart Rate 1: 68 bpm Height: 5' SpO2: 98% Weight: 135 lbs 01/22/2014 Blood Pressure 1: 122/64 Code: 8480-6 BMI: 25.7 Code: 56581-4 Heart Rate 1: 72 bpm Height: 5' Weight: 134 lbs 02/07/2013 Blood Pressure 1: 140/80 Code: 8480-6 BMI: 23.6 Code: 63949-3 Height: 5' Weight: 123 lbs 02/16/2012 Blood Pressure 1: 102/68 Code: 8480-6 Heart Rate 1: 68 bpm Respiratory Rate: 18 bpm Weight: 131 lbs 01/24/2012 Blood Pressure 1: 120/72 Code: 8480-6 Heart Rate 1: 72 bpm Respiratory Rate: 16 bpm Weight: 133 lbs 10/31/2011 Blood Pressure 1: 136/84 Code: 8480-6 BMI: 23.2 Code: 94556-2 Heart Rate 1: 74 bpm Height: 5'2" Respiratory Rate: 16 bpm Weight: 127 lbs 10/13/2011 Blood Pressure 1: 138/84 Code: 8480-6 BMI: 23.2 Code: 10298-8 Heart Rate 1: 80 bpm Height: 5'2" Respiratory Rate: 16 bpm Weight: 127 lbs Functional Status No Functional Status data History of Present Illness Symptom Name Status Resu lt Effective Date Notes Onset and Resolution o ngoing 07/12/2018 None Location in the [facility] e of in the [...] 11/08/2016 None Hospital Follow Up _ pne umonia 11/08/2016 None Hospital Follow Up Quality acute illness 11/08/2016 None Hospital Follow Up Pertinent Findings Other: cough 11/08/2016 None Hospital Follow Up _ inf ection 11/01/2016 None Hospital Follow Up _ pne umonia 11/01/2016 None Hospital Follow Up Quality acute [...] Quality blee ding 02/07/2013 None hemorrhoids Quality reserves clerk holly 02/07/2013 None hemorrhoids Onset and Resolution [...] Encounters Encounter Performer Loca tion Codes Date ([id number]) 61206 EST. P ATIENT, LEVEL III Diagnosis: Low back pain[ICD10: M54.5] Jennifer Walker MD, [facility] CPT- 4: 00215 07/12/2018 ([id number]) 54698 EST. P ATIENT, LEVEL IV Diagnosis: Paroxysmal atrial fibrillation[ICD10: I48.0] Diagnosis: Abnormal weight gain[ICD10: R63.5] Diagnosis: Irritable bowel syndrome with diarrhea[ICD10: K58.0] Jennifer Walker MD, [facility] CPT-4: 50265 12/14/2017 ([id number]) 76190 EST. P ATIENT, LEVEL III Diagnosis: Paroxysmal atrial fibrillation[ICD10: I48.0] Jennifer Walker MD, [facility] CPT-4: 72455 12/06/2016 ([id number]) 54176 EST. P ATIENT, LEVEL IV Diagnosis: Paroxysmal atrial fibrillation[ICD10: I48.0] Diagnosis: Pneumonia, unspecified organism[ICD10: J18.9] Jennifer Walker MD, [facility] CPT-4: 36141 11/08/2016 ([id number]) 84581 EST. P ATIENT, LEVEL III Diagnosis: Cough[ICD10: R05] Diagnosis: Pneumonia, unspecified organism[ICD10: J18.9] [facility] CPT-4: 70982 11/01/2016 ([id number]) 72071 EST. P ATIENT, LEVEL III Diagnosis: Generalized anxiety disorder[ICD10: F41.1] [facility] CPT-4: 16670 11/05/2015 ([id number]) 05537 EST. P ATIENT, LEVEL III Diagnosis: Rectal bleeding[ICD9: 569.3] [facility] CPT- 4: 24773 10/02/2014 ([id number]) 58106 EST. P ATIENT, LEVEL III Diagnosis: Anxiety, generalized[ICD9: 300.02] Diagnosis: Depression[ICD9: 311] [facility] CPT-4: 43102 01/22/2014 ([id number]) 51520 EST. P ATIENT, LEVEL III Diagnosis: Bloody feces[ICD9: 578.1] Kim Walker MD, [facility] CPT-4: 24068 02/07/2013 ([id number]) 58946 EST. P ATIENT, LEVEL III Diagnosis: OSTEOARTH NOS-UNSPEC[ICD9: 715.90] Diagnosis: MUSCLE/LIGAMENT DIS NEC[ICD9: 728.89] [facility] CPT-4: 37181 02/16/2012 ([id number]) 24641 EST. P ATIENT, LEVEL III Diagnosis: Iliotibial band syndrome[ICD9: 728.89] Diagnosis: OSTEOARTH NOS-UNSPEC[ICD9: 715.90] Diagnosis: PAIN IN LIMB[ICD9: 729.5] [facility] CPT-4: 52734 01/24/2012 ([id number]) 69786 EST. P ATIENT, LEVEL IV Diagnosis: OSTEOARTH NOS-UNSPEC[ICD9: 715.90] Diagnosis: ROUTINE GYNE EXAM[ICD9: V72.31] [facility] CPT-4: 72393 10/31/2011 OFFICE VISIT, NEW - LEVEL 4 Diagnosis: Osteoarthritis[ICD9: 715.90] Diagnosis: INSOMNIA NOS[ICD9: 780.52] Diagnosis: PAIN IN LIMB[ICD9: 729.5] [facility] CPT-4: 74540 10/13/2011 Plan of Care Planned Activity Notes C odes Status Date Visit Plan: Low back pain- patient' s pain is actually improved -recommend MRI -refer to Dr Crouch if needed- okay to use tylenol for pain -also discussed PT if indicated-patient verbalized understanding of plan. 07/12/2018 Appointment: Jennifer Vera WPtel: [phone] (30 min) Complex 07/12/2018 Patient Education: Patient Medication Summary Completed 07/12/2018 Patient Education: Back Pain Completed 07/12/2018 Care Plan: MRI LUMBAR SPINE W/O DYE LOINC : 99425-9 Pending 07/12/2018 Patient Education: Patient Medication Summary [...] including TSH 12/14/2017 Appointment: Jennifer Vera WPtel: [phone] (15 min) Moderate 12/14/2017 Patient Education: Patient Medication Summary Completed 12/14/2017 Care Plan: Cbc With Differential Pending 12/14/2017 Visit Plan: Afib-converted to NSR b y Dr Solorzano-on xarelto- instructed patient to report if they start to feel as if their heart rate is becoming uncontrolled or other symptoms develop. Patient verbalized understmushtaq iverson. 12/06/2016 Appointment: Jennifer Vera WPtel: [address] [place], [place] [phone] (15 min) Moderate 12/06/2016 Patient Education: Patient Medication Summary Completed 12/06/2016 Visit Plan: Afib-ordered EKG to con firm-increase cartia for heart rate control and start eliquis 5mg twice daily-follow up with Dr Solorzano Pneumonia-finished abx-no further treatment indicated 11/08/2016 Appointment: Jennifer Vera WPtel: [phone] (30 min) Complex 11/08/2016 Patient Education: Patient Medication Summary Completed 11/08/2016 Visit Plan: Pneumonia-on abx per ur kristie-continue current treatment and follow up in 1 week to ensure resolution of symptoms. Call sooner for worsening or new symptoms. Patient verbalized understanding of plan. 11/01/2016 Appointment: Jennifer Vera WPtel: [phone] (15 min) Moderate 11/01/2016 Patient Education: Patient [...] current medications. 11/05/2015 Appointment: Jennifer Vera WPtel: [phone] (15 min) Moderate 11/05/2015 Patient Education: Patient [...] panic attacks 01/22/2014 Appointment: Kim Walker WPtel: [facility] Sick 01/22/2014 Patient Education: Patient Medication Summary Completed 01/22/2014 Care Plan: COMPLETE CBC AUTOMATED LOINC : 61213-5 Ordered 01/22/2014 Visit Plan: Blood in stool [...] work up. 02/07/2013 [facility]ment[phone] [facility] [facility] 02/07/2013 Patient Education: Patient Medication Summary Completed 02/07/2013 Visit Plan: Arthritis- occasionally uncontrolled symptoms- recommend pt to take antiinflammatory as directed for pain control. Use tylenol for break through pain symptoms.Start mobic daily Leg length discrepency - recommended pt to place: dr darshana reddy- 2 in the left shoe 02/16/2012 Appointment: [phone] [facility] Follow up 02/16/2012 Patient Education: Patient Medication [...] for re-eval. 01/24/2012 [facility]ment[phone] [facility] Other 01/24/2012 Patient Education: Patient Medication Summary [...] times daily. 10/31/2011 Appointment: Kim Walker WPtel: [facility] 10/31/2011 Patient Education: Patient [...] time insomnia. 10/13/2011 Appointment: Kim Walker WPtel: [facility] New Patient 10/13/2011 Patient Education: Patient Medication [...] Lara for follow up Plan: (Q2036) VICKY AL VACC, 3 YRS & >, IM [...]
--- OUTSIDE RECORDS SUMMARY | 2019-12-04 06:55 | XMS REPORT | CCD ---
Author Author Linda Walker Organization Kim Walker MD, [facility] Address [address] [place] [address] Phone Care Team Providers Care Tour Director Name Role Phone PP Unavailable CCM Unavailable Summary Purpose Interface Exchange Insurance Providers Payer name Policy type / Coverage type Covered alliance party ID Effective Begin Date Effective End Date RACHEL GBA [id number] 2017 Unknown [employer] and [employer] [id number] Unknown Family history Mother Diagnosis Age At Onset Breast cancer Unknown Brother Diagnosis Age At Onset Arthritis Unknown Grandson Diagnosis Age At Onset Diabetes Unknown Social History Social History Element Codes Description Effective Dates Tobacco history SNOMED CT: 8523987 Former smoker quit 03/201301/22/2014 Employment Unknown Retir [...] Fill Instructions Xanax 0.25 mg tablet RxNorm: 686358 Tablet(s) TAKE 1/2 TO 1 (ONE-HALF TO ONE ) TABLET BY MOUTH 4 TIMES DAILY NEEDED 11/27/2018 No Stop Date Active Cartia XT 180 mg cap clifford,extended release RxNorm: 920708 TAKE 1 CAPSULE BY ALEXANDER TH AT BEDTIME 11/05/2018 No Stop Date Active Synthroid 75 mcg tablet RxNorm: 329582 TAKE 1 TABLET BY MOUTH ONCE DAILY 10/17/2018 No Stop Date Active Prozac 40 mg capsule RxNorm: 718656 TAKE 1 CAPSULE BY MOUTH ONCE DAILY 10/08/2018 No Stop Date Active Xanax 0.25 mg tablet RxNorm: 664584 Tablet(s) TAKE 1/2 TO 1 (ONE-HALF TO ONE ) TABLET BY MOUTH 4 TIMES DAILY NEEDED 08/28/2018 No Stop Date Active Cartia XT 180 mg cap clifford,extended release RxNorm: 611153 TAKE 1 CAPSULE BY ALEXANDER TH AT BEDTIME 07/30/2018 11/04/2018 Inactive Prozac 40 mg capsule RxNorm: 651539 TAKE ONE CAPSULE BY MOUTH ONCE DAILY 06/08/2018 10/07/2018 In active Xanax 0.25 mg tablet RxNorm: 655605 TAKE 1/2 TO 1 (ONE-HALF TO ONE) TABLET B Y MOUTH 4 TIMES DAILY NEEDED 05/18/2018 11/26/2018 Inactive Synthroid 75 mcg tablet RxNorm: 209306 1 Tablet(s) PO daily 03/29/2018 09/24/2018 Inactive will call for refill when ready Xanax 0.25 mg tablet RxNorm: 969071 1/2 - 1 Tablet(s) PO QID as needed anxie ty attack 01/24/2018 05/18/2018 Inactive Synthroid 25 mcg tablet RxNorm: 062506 1 Tablet(s) PO daily 12/15/2017 03/28/2018 Inactive take on an empty stomach by itself Flagyl 500 mg tablet RxNorm: 457070 1 Tablet(s) PO TID 12/15/2017 12/14/2017 Inactive Flagyl 500 mg tablet RxNorm: 640147 1 Tablet(s) PO TID 12/15/2017 12/24/2017 Inactive Synthroid 25 mcg tablet RxNorm: 222387 1 Tablet(s) PO daily 12/15/2017 12/14/2017 Inactive Fish Oil 360 mg-1,20 0 mg capsule,delayed release RxNorm: 1 Capsule(s) PO BID 12/14/2017 No Stop Date Active Xifaxan 550 mg tablet RxNorm: 681792 1 Tablet(s) PO TID 12/14/2017 12/27/2017 Inactive Xanax 0.25 mg tablet RxNorm: 201290 1/2 - 1 Tablet(s) PO QID as needed anxie ty attack 12/01/2017 07/11/2018 Inactive Xanax 0.25 mg tablet RxNorm: 858837 1/2 - 1 Tablet(s) PO QID as needed anxie ty attack 08/22/2017 08/28/2017 Inactive Cartia XT 180 mg cap clifford,extended release RxNorm: 467454 Capsule(s) TAKE ONE C APSULE BY MOUTH ONCE DAILY AT BEDTIME 08/04/2017 07/29/2018 Inactive Prozac 40 mg capsule RxNorm: 600226 Capsule(s) TAKE ONE CAPSULE BY MOUTH ONC E DAILY 06/08/2017 06/07/2018 Inactive Prozac 40 mg capsule RxNorm: 182799 TAKE ONE CAPSULE BY MOUTH ONCE DAILY 05/30/2017 06/07/2017 In active Cartia XT 180 mg cap clifford,extended release RxNorm: 518783 TAKE ONE CAPSULE BY M OUTH ONCE DAILY AT BEDTIME 05/08/2017 08/03/2017 Inactive Prozac 40 mg capsule RxNorm: 665826 TAKE ONE CAPSULE BY MOUTH ONCE DAILY 02/03/2017 05/29/2017 In active Eliquis 5 mg tablet RxNorm: 6002376 1 Tablet(s) PO BID 11/09/2016 12/05/2016 Inactive Eliquis 5 mg tablet RxNorm: 1482207 1 Tablet(s) PO BID 11/09/2016 11/08/2016 Inactive Cartia XT 180 mg cap clifford,extended release RxNorm: 818675 1 Capsule(s) PO QHS 11/08/2016 05/06/2017 In active Prozac 40 mg capsule RxNorm: 099085 TAKE ONE CAPSULE BY MOUTH ONCE DAILY 11/07/2016 02/02/2017 In active Phenergan with Codei ne Syrup RxNorm: 2.5 Milliliter(s) PO QHS as needed 10/28/2016 07/11/2018 In active levofloxacin 500 mg tablet RxNorm: 352664 1 Tablet(s) PO daily 10/28/2016 11/06/2016 Inactive Prozac 40 mg capsule RxNorm: 458042 TAKE ONE CAPSULE BY MOUTH ONCE DAILY 08/01/2016 10/29/2016 In active Prozac 40 mg capsule RxNorm: 930438 1 Capsule(s) PO daily 11/05/2015 05/02/2016 Inactive [SAVINGS FOR UNINSURED PATIENTS -- BIN:0 74039, PCN: [id number], Group: [id number], ID# [id number], Process claim through TuneIn, for questions: . THIS IS NOT INSURANCE.] Xanax 0.25 mg tablet RxNorm: 903671 1/2 - 1 Tablet(s) PO QID as needed anxie ty attack 11/02/2015 01/29/2016 Inactive Prozac 40 mg capsule RxNorm: 475683 Capsule(s) TAKE ONE CAPSULE BY MOUTH ONC E DAILY 08/12/2015 08/11/2015 Inactive NEEDS APPT Prozac 40 mg capsule RxNorm: 950429 TAKE ONE CAPSULE BY MOUTH ONCE DAILY 08/12/2015 07/31/2016 In active hydrocortisone aceta te 25 mg rectal suppository RxNorm: 3152423 1 Suppository RTL QH S 10/02/2014 07/11/2018 Inactive daily HS x 1 week, then twice weekly the n as needed Prozac 40 mg capsule RxNorm: 048024 TAKE ONE CAPSULE BY MOUTH ONCE DAILY 07/31/2014 01/26/2015 In active Prozac 40 mg capsule RxNorm: 832063 1 Capsule(s) PO daily 07/30/2014 02/24/2015 Inactive [SAVINGS FOR NON-COVERED DRUGS -- BIN:00 3585, PCN: [id number], Group: XXXXX, ID# [id number], Questions: . THIS IS NOT INSURANCE.] Xanax 0.25 mg tablet RxNorm: 655955 1/2 - 1 Tablet(s) PO QID as needed anxie ty attack 01/22/2014 03/22/2014 Inactive Prozac 40 mg capsule RxNorm: 647807 1 Capsule(s) PO daily 01/22/2014 07/20/2014 Inactive [SAVINGS FOR UNINSURED PATIENTS -- BIN:0 44778, PCN: ASPROD1, Group: [id number], ID# [id number], Process claim through T[employer]In, for questions: . THIS IS NOT INSURANCE.] Prozac 20 mg capsule RxNorm: 855534 1 Capsule(s) PO daily 08/08/2013 01/21/2014 Inactive Prozac 20 mg capsule RxNorm: 160742 1 Capsule(s) PO daily 07/19/2013 08/07/2013 Inactive Prozac 20 mg capsule RxNorm: 671414 1 Capsule(s) PO daily 02/12/2013 07/18/2013 Inactive Influenza Virus Vacc ine 0.5 mL RxNorm: IM 02/16/2012 02/16/2012 Inactive meloxicam 7.5 mg tablet RxNorm: 288172 1 Tablet(s) PO BID ONE PILL IN MORNING, IF PAIN IS UNCONTROLLED, MAY TAKE ONE EXTRA PILL IN THe PM do not take with ibuprofen or aleve 01/24/2012 02/15/2012 Inactive Aspirin Low Dose 81 mg tablet,delayed release RxNorm: 471483 1 Tablet(s) PO daily No Start Date Active Tylenol 500 mg RxNorm: 1 Tablet(s) PO BID No Start Date Active Mahesh Deeick 14 0 mg/mL subcutaneous pen injector RxNorm: 2558226 1 Milliliter(s) SQ Q2 weeks No Start Date Active amiodarone 200 mg ta blet RxNorm: 474135 1/2 Tablet(s) PO daily No Start Date Active melatonin 10 mg tablet RxNorm: 3285437 1 Tablet(s) PO QHS No Start Date Active pantoprazole 40 mg t ablet,delayed release RxNorm: 581366 1 Tablet(s) PO daily No Start Date Active isosorbide mononitra te ER 30 mg tablet,extended release 24 hr RxNorm: 559740 1 Tablet(s) PO daily No Start Date Active melatonin 3 mg Tab RxNorm: 956840 2 Tablet(s) PO QHS No Start Date 12/13/2017 Inactive Xarelto 20 mg tablet RxNorm: 2860260 1 Tablet(s) PO QPM No Start Date 12/13/2017 Inactive Tylenol 8 Hour 650 m g tablet,extended release RxNorm: 8217179 1 Tablet(s) PO BID No Start Date 07/12/2018 Inactive Calcium 600 + D(3) 6 00 mg (1,500 mg)-400 unit Tab RxNorm: 441161 1 Tablet(s) PO QPM No Start Date 12/13/2017 Inactive prasugrel 10 mg tablet RxNorm: 865899 1 Tablet(s) PO daily No Start Date 07/11/2018 Inactive Fish Oil 360 mg-1,20 0 mg capsule,delayed release RxNorm: 1 Capsule(s) PO daily No Start Date 12/13/2017 Inactive PreserVision AREDS 2 oral RxNorm: 7169168 oral No Start Date 07/11/2018 Inactive Prozac 20 mg capsule RxNorm: 320454 1 Capsule(s) PO daily No Start Date 02/11/2013 Inactive Breo Ellipta inhalation RxNorm: 0896707 inhalation No Start Date 12/13/2017 Inactive fenofibrate nanocrys tallized 145 mg tablet RxNorm: 045054 Tablet(s) PO daily No Start Date 10/31/2016 Inactive Centrum Silver Ultra Women's Tab RxNorm: 1 Tablet(s) PO QHS No Start Date 10/31/2016 Inactive Cartia XT 120 mg cap clifford,extended release RxNorm: 522266 1 Capsule(s) PO QHS No Start Date 11/07/2016 Inactive Vision oral RxNorm: oral No Start Date 10/31 Inactive Medication Administered Medication Codes Instruc tions Start Date Status Influenza Virus Vaccine 0.5 mL RxNorm: 02/16/2012 No longer Active Immunizations Vaccine Codes Date Status Influenza CVX: 141 02/15 completed Influenza CVX: 141 03/29 completed Pneumococcal (Adult) CVX: 33 03/29/2010 completed Tetanus/Diptheria CVX: 113 05/29/2009 completed Assessments Condition Codes Effectiv e [...] Item Item Code Result Date Free T4 Atj983 FREE T4 1.12 ng/dL 09/28/2018 Tsh Ord6 TSH (3rd IS) 3.54 uIU/mL 09/28/2018 Tsh Ord6 TSH (3rd IS) 4.90 uIU/mL 06/25/2018 Free T4 Ygi706 FREE T4 1.15 ng/dL 06/25/2018 Free T4 Hjg737 FREE T4 0.52 ng/dL 03/22/2018 Tsh Ord6 [...] 33.4 pg 12/15/2017 Cbc With Differential Ord2 [place]% 17.3 % 12/15/2017 Cbc With Differential Ord2 [...] 0.78 K/ul 12/15/2017 Cbc With Differential Ord2 [place] ABS# 0.4 K/ul 12/15/2017 Cbc With Differential Ord2 Eos ABS# 0.1 K/ul 12/15/2017 Cbc With Differential Ord2 Baso ABS# 0.0 K/ul 12/15/2017 Free T4 Agy593 FREE T4 0.34 ng/dL 12/15/2017 Test(s) Not Perfromed [id number] Test(s) Not Performed Test(s) Not Performed. See Below: 12/14/2017 Test(s) Not Perfromed [id number] TEST NAME CBC 12/14/2017 Test(s) Not Perfromed [id number] Rejection Reason No Suitable Specimen Receive d 12/14/2017 Test(s) Not Perfromed [id number] COMMENT Grace notified for redraw 12/14/2017 Test(s) Not Perfromed [id number] Program Manager Environmental Planning Wale J Carlos 12/14/2017 Tsh Ord6 TSH (3rd IS) 48.79 uIU/mL 12/14/2017 Comp Metabolic Gut716 NA 137 mEq/L 12/14/2017 Comp Metabolic Pab807 K 4.3 mEq/L 12/14/2017 Comp Metabolic Xsr268 CL 101 mEq/L 12/14/2017 Comp Metabolic Okj314 CO2 29.0 mEq/L 12/14/2017 Comp Metabolic Fbq874 AN ION GAP 11 12/14/2017 Comp Metabolic Uaq690 GL UCOSE 81 mg/dL 12/14/2017 Comp Metabolic Wgk839 Cr eat 0.7 mg/dL 12/14/2017 Comp Metabolic Umy505 eG FR 86 ml/min/1.73m2 12/14 Comp Metabolic Nxh785 BUN 14 mg/dL 12/14/2017 Comp Metabolic Gwg858 B/ C Ratio 19.7 Ratio 12/14/2017 Comp Metabolic Rhc812 CA LCIUM 9.2 mg/dL 12/14/2017 Comp Metabolic Wql363 AL K PHOS 112 U/L 12/14/2017 Comp Metabolic Dtz155 T(SGOT) 25 U/L 12/14/2017 Comp Metabolic Tez217 AL T(SGPT) 20 U/L 12/14/2017 Comp Metabolic Adg406 BI LI T 0.8 mg/dL 12/14/2017 Comp Metabolic Mdb549 AL BUMIN 4.1 g/dL 12/14/2017 Comp Metabolic Eth990 TP RO 6.9 g/dL 12/14/2017 Comp Metabolic Vem099 GL OB 2.9 g/dL 12/14/2017 Comp Metabolic Qmj652 A/ G Ratio 1.4 Ratio 12/14/2017 Comp Metabolic Soi823 Os mo 273 mOsmo 12/14/2017 LIPID GRP HDL TE ST 70 MG/DL 01/23/2014 LIPID GRP TRIG 134 MG/DL 01/23/2014 LIPID GRP TEST L DL 117 MG/DL 01/23/2014 LIPID GRP CHOL 214 MG/DL 01/23/2014 LIPID GRP RCHOL/ HDL 3.06 RATIO 01/23/2014 LIPID GRP NON-HD L CH 144 MG/DL 01/23/2014 TSH 2672884 TSH 1.784 uIU/ML 01/23/2014 CBC 5309720 WBC 4.7 10e9/L 01/23/2014 CBC 1355349 RBC 4.10 10e12/L 01/23/2014 CBC 8645724 HGB 13.3 g/dL 01/23/2014 CBC 2661120 HCT DET 39.2 % 01/23/2014 CBC 4739496 MCV 95.6 fL 01/23/2014 CBC 8856776 MCH 32.4 pg 01/23/2014 CBC 7315405 MCHC 33.9 g/dL 01/23/2014 CBC 2079271 PLT 232 10e9/L 01/23/2014 CBC 2056409 MPV 10.9 fL 01/23/2014 CBC 2968395 DORON % 57.4 % 01/23/2014 CBC 3179390 LY % 28.0 % 01/23/2014 CBC 3701256 MON % 12.9 % 01/23/2014 CBC 7167185 EOS % 1.3 % 01/23/2014 CBC 4596860 BASO % 0.4 % 01/23/2014 CBC 8100490 RDW 12.1 % 01/23/2014 CBC 2429019 ABS DORON 2.70 10e9/L 01/23/2014 CBC 7141868 ABS LYMPH 1.32 10e9/L 01/23/2014 CBC 7715128 ABS MONO 0.61 10e9/L 01/23/2014 CBC 8662907 ABS EOS 0.06 10e9/L 01/23/2014 CBC 2265267 ABS BASO 0.02 10e9/L 01/23/2014 CBC 1678805 RDW-SD 41.2 fL 01/23/2014 CHEM 14 2191937 AST 18 U/L 01/23/2014 CHEM 14 1890810 ALT 13 IU/L 01/23/2014 CHEM 14 3101198 BUN 16 MG/DL 01/23/2014 CHEM 14 7415293 ALBUMIN 4.2 GM/DL 01/23/2014 CHEM 14 8881284 CHLORIDE 105 MMOL/L 01/23/2014 CHEM 14 0649146 BILI TOT 0.7 MG/DL 01/23/2014 CHEM 14 0127716 ALK PHOS 61 U/L 01/23/2014 CHEM 14 5941235 SODIUM 138 MMOL/L 01/23/2014 CHEM 14 2385584 CREATINI NE 0.65 MG/DL 01/23/2014 CHEM 14 9329555 CALCIUM 9.5 MG/DL 01/23/2014 CHEM 14 7079765 POTASSIUM 4.4 MMOL/L 01/23/2014 CHEM 14 3202084 PROT TOT 6.8 GM/DL 01/23/2014 CHEM 14 1074435 GLUCOSE 93 MG/DL 01/23/2014 CHEM 14 5603730 BICARB 28 MMOL/L 01/23/2014 CHEM 14 4380194 ANION GAP 5 MEQ/L 01/23/2014 GFR CALC 1465439 GFR AA >60 ML/MIN 01/23/2014 GFR CALC 9097397 GFR NON -AA >60 ML/MIN 01/23/2014 URIC ACID 7395742 URIC A YKLE 5.7 MG/DL 10/13/2011 CHEM 14 6134115 AST 19 U/L 10/13/2011 CHEM 14 1323455 ALT 16 U/L 10/13/2011 CHEM 14 2971799 BUN 21 MG/DL 10/13/2011 CHEM 14 7375278 ALBUMIN 4.2 GM/DL 10/13/2011 CHEM 14 0780114 CHLORIDE 103 MMOL/L 10/13/2011 CHEM 14 0242473 BILI TOT 0.6 MG/DL 10/13/2011 CHEM 14 9554705 ALK PHOS 71 U/L 10/13/2011 CHEM 14 2491212 SODIUM 141 MMOL/L 10/13/2011 CHEM 14 0831431 CREATINI NE 0.65 MG/DL 10/13/2011 CHEM 14 7688519 CALCIUM 9.3 MG/DL 10/13/2011 CHEM 14 6371119 POTASSIUM 4.2 MMOL/L 10/13/2011 CHEM 14 8861350 PROT TOT 6.8 GM/DL 10/13/2011 CHEM 14 1344735 GLUCOSE 69 MG/DL 10/13/2011 CHEM 14 0261123 BICARB 27 MMOL/L 10/13/2011 CHEM 14 4807246 ANION GAP 11 MMOL/L 10/13/2011 CBC 7549796 WBC 6.1 10e9/L 10/13/2011 CBC 3036678 RBC 4.11 10e12/L 10/13/2011 CBC 1153670 HGB 13.3 g/dL 10/13/2011 CBC 8292645 HCT DET 39.6 % 10/13/2011 CBC 4605142 MCV 96.4 fL 10/13/2011 CBC 6067065 MCH 32.4 pg 10/13/2011 CBC 1404991 MCHC 33.6 g/dL 10/13/2011 CBC 4919435 PLT 238 10e9/L 10/13/2011 CBC 6063579 MPV 11.7 fL 10/13/2011 CBC 2896463 DORON % 50.2 % 10/13/2011 CBC 6578176 LY % 35.6 % 10/13/2011 CBC 4662761 MON % 12.7 % 10/13/2011 CBC 7907355 EOS % 1.2 % 10/13/2011 CBC 8212895 BASO % 0.3 % 10/13/2011 CBC 1919529 RDW 12.3 % 10/13/2011 CBC 2523735 ABS DORON 3.06 10e9/L 10/13/2011 CBC 2936355 ABS LYMPH 2.17 10e9/L 10/13/2011 CBC 3150884 ABS MONO 0.77 10e9/L 10/13/2011 CBC 5079567 ABS EOS 0.07 10e9/L 10/13/2011 CBC 6741829 ABS BASO 0.02 10e9/L 10/13/2011 CBC 9344365 RDW-SD 42.3 fL 10/13/2011 GFR CALC 5406099 GFR AA >60 ML/MIN 10/13/2011 GFR CALC 4926374 GFR NON -AA >60 ML/MIN 10/13/2011 ESR 6233477 ESR 14 MM/HR 10/13/2011 Review of Systems [...] clear 11/08/2016 None Full Exam - General 1995 Ears/Nose/Throat [...] developed 02/16/2012 None Full Exam - General 1995 Constitutional general appearance Overall: in no acute [...] SY CPT-4: G8553 01/24/2012 ROUTINE VENIPUNCTURE CPT-4: 15130 10/13/2011 Vital Signs Date Vital 07/12/2018 Blood Pressure 1: 126/68 Code: 8480-6 BMI: 28.4 Code: 34516-0 Heart Rate 1: 71 bpm Height: 5' SpO2: 97% Weight: 148 lbs 12/14/2017 Blood Pressure 1: 138/80 Code: 8480-6 BMI: 28.8 Code: 23949-3 Heart Rate 1: 73 bpm Height: 5' SpO2: 98% Weight: 150 lbs 12/06/2016 Blood Pressure 1: 146/82 Code: 8480-6 BMI: 26.8 Code: 55337-8 Heart Rate 1: 58 bpm Height: 5' [...] 1: 118/74 Code: 8480-6 BMI: 25.7 Code: 30834-7 Heart Rate 1: 64 bpm Height: 5' SpO2: 98% Weight: 134 lbs 10/02/2014 Blood Pressure 1: 136/88 Code: 8480-6 BMI: 25.9 Code: 50052-6 Heart Rate 1: 68 bpm Height: 5' SpO2: 98% Weight: 135 lbs 01/22/2014 Blood Pressure 1: 122/64 Code: 8480-6 BMI: 25.7 Code: 29478-7 Heart Rate 1: 72 bpm Height: 5' Weight: 134 lbs 02/07/2013 Blood Pressure 1: 140/80 Code: 8480-6 BMI: 23.6 Code: 26667-5 Height: 5' Weight: 123 lbs 02/16/2012 Blood Pressure 1: 102/68 Code: 8480-6 Heart Rate 1: 68 bpm Respiratory Rate: 18 bpm Weight: 131 lbs 01/24/2012 Blood Pressure 1: 120/72 Code: 8480-6 Heart Rate 1: 72 bpm Respiratory Rate: 16 bpm Weight: 133 lbs 10/31/2011 Blood Pressure 1: 136/84 Code: 8480-6 BMI: 23.2 Code: 15580-3 Heart Rate 1: 74 bpm Height: 5'2" Respiratory Rate: 16 bpm Weight: 127 lbs 10/13/2011 Blood Pressure 1: 138/84 Code: 8480-6 BMI: 23.2 Code: 43755-3 Heart Rate 1: 80 bpm Height: 5'2" Respiratory Rate: 16 bpm Weight: 127 lbs Functional Status No Functional Status data History of Present Illness Symptom Name Status Resu lt Effective Date Notes Onset and Resolution o ngoing 07/12/2018 None Location in the [facility] e of in the lower [...] Quality blee ding 02/07/2013 None hemorrhoids Quality scale reclamation tender holly 02/07/2013 None hemorrhoids Onset and Resolution [...] Encounters Encounter Performer Loca tion Codes Date ([id number]) 18590 EST. P ATIENT, LEVEL III Diagnosis: Low back pain[ICD10: M54.5] Jennifer Walker MD, [facility] CPT- 4: 71237 07/12/2018 ([id number]) 83671 EST. P ATIENT, LEVEL IV Diagnosis: Paroxysmal atrial fibrillation[ICD10: I48.0] Diagnosis: Abnormal weight gain[ICD10: R63.5] Diagnosis: Irritable bowel syndrome with diarrhea[ICD10: K58.0] Jennifer Walker MD, [facility] CPT-4: 24975 12/14/2017 ([id number]) 60681 EST. P ATIENT, LEVEL III Diagnosis: Paroxysmal atrial fibrillation[ICD10: I48.0] Jennifer Walker MD, [facility] CPT-4: 43401 12/06/2016 ([id number]) 54276 EST. P ATIENT, LEVEL IV Diagnosis: Paroxysmal atrial fibrillation[ICD10: I48.0] Diagnosis: Pneumonia, unspecified organism[ICD10: J18.9] [facility] CPT-4: 92154 11/08/2016 ([id number]) 53876 EST. P ATIENT, LEVEL III Diagnosis: Cough[ICD10: R05] Diagnosis: Pneumonia, unspecified organism[ICD10: J18.9] [facility] CPT-4: 51096 11/01/2016 ([id number]) 18252 EST. P ATIENT, LEVEL III Diagnosis: Generalized anxiety disorder[ICD10: F41.1] [facility] CPT-4: 03755 11/05/2015 ([id number]) 90509 EST. P ATIENT, LEVEL III Diagnosis: Rectal bleeding[ICD9: 569.3] [facility] CPT- 4: 21702 10/02/2014 ([id number]) 35057 EST. P ATIENT, LEVEL III Diagnosis: Anxiety, generalized[ICD9: 300.02] Diagnosis: Depression[ICD9: 311] [facility] CPT-4: 92862 01/22/2014 ([id number]) 10599 EST. P ATIENT, LEVEL III Diagnosis: Bloody feces[ICD9: 578.1] Kim Walker MD, [facility] CPT-4: 66860 02/07/2013 ([id number]) 85983 EST. P ATIENT, LEVEL III Diagnosis: OSTEOARTH NOS-UNSPEC[ICD9: 715.90] Diagnosis: MUSCLE/LIGAMENT DIS NEC[ICD9: 728.89] [facility] CPT-4: 38803 02/16/2012 ([id number]) 22248 EST. P ATIENT, LEVEL III Diagnosis: Iliotibial band syndrome[ICD9: 728.89] Diagnosis: OSTEOARTH NOS-UNSPEC[ICD9: 715.90] Diagnosis: PAIN IN LIMB[ICD9: 729.5] [facility] CPT-4: 40273 01/24/2012 ([id number]) 59942 EST. P ATIENT, LEVEL IV Diagnosis: OSTEOARTH NOS-UNSPEC[ICD9: 715.90] Diagnosis: ROUTINE GYNE EXAM[ICD9: V72.31] Kim Walker MD, [facility] CPT-4: 97841 10/31/2011 OFFICE VISIT, NEW - LEVEL 4 Diagnosis: Osteoarthritis[ICD9: 715.90] Diagnosis: INSOMNIA NOS[ICD9: 780.52] Diagnosis: PAIN IN LIMB[ICD9: 729.5] [facility] CPT-4: 91028 10/13/2011 Plan of Care Planned Activity Notes C odes Status Date Visit Plan: Low back pain- patient' s pain is actually improved -recommend MRI -refer to Dr Crouch if needed- okay to use tylenol for pain -also discussed PT if indicated-patient verbalized understanding of plan. 07/12/2018 Appointment: Jennifer Vera WPtel: [facility]5 [phone] (30 min) Complex 07/12/2018 Patient Education: Patient Medication Summary Completed 07/12/2018 Patient Education: Back Pain Completed 07/12/2018 Care Plan: MRI LUMBAR SPINE W/O DYE LOINC : 94068-0 Pending 07/12/2018 Patient Education: Patient Medication Summary [...] including TSH 12/14/2017 Appointment: Jennifer Vera WPtel: [phone] (15 min) Moderate 12/14/2017 Patient Education: Patient Medication Summary Completed 12/14/2017 Care Plan: Cbc With Differential Pending 12/14/2017 Visit Plan: Afib-converted to NSR b y Dr Solorzano-on xarelto- instructed patient to report if they start to feel as if their heart rate is becoming uncontrolled or other symptoms develop. Patient verbalized understmushtaq iverson. 12/06/2016 Appointment: Jennifer Vera WPtel: [phone] (15 min) Moderate 12/06/2016 Patient Education: Patient Medication Summary Completed 12/06/2016 Visit Plan: Afib-ordered EKG to con firm-increase cartia for heart rate control and start eliquis 5mg twice daily-follow up with Dr Solorzano Pneumonia-finished abx-no further treatment indicated 11/08/2016 Appointment: Jennifer Vera WPtel: [phone] (30 min) Complex 11/08/2016 Patient Education: Patient Medication Summary Completed 11/08/2016 Visit Plan: Pneumonia-on abx per ur gent-continue current treatment and follow up in 1 week to ensure resolution of symptoms. Call sooner for worsening or new symptoms. Patient verbalized understanding of plan. 11/01/2016 Appointment: Jennifer Vera WPtel: [phone] (15 min) Moderate 11/01/2016 Patient Education: Patient [...] current medications. 11/05/2015 Appointment: Jennifer Vera WPtel: [phone] (15 min) Moderate 11/05/2015 Patient Education: Patient [...] panic attacks 01/22/2014 Appointment: Kim Walker WPtel: [facility] [address] Sick 01/22/2014 Patient Education: Patient Medication Summary Completed 01/22/2014 Care Plan: COMPLETE CBC AUTOMATED LOINC : 48071-3 Ordered 01/22/2014 Visit Plan: Blood in stool [...] work up. 02/07/2013 Appointment: Kim Walker WPtel: [facility] Follow up 02/07/2013 Patient Education: Patient Medication Summary Completed 02/07/2013 Visit Plan: Arthritis- occasionally uncontrolled symptoms- recommend pt to take antiinflammatory as directed for pain control. Use tylenol for break through pain symptoms.Start mobic daily Leg length discrepency - recommended pt to place: dr darshana reddy- 2 in the left shoe 02/16/2012 Appointment: Kim Walker WPtel: [phone] [facility] Follow up 02/16/2012 Patient Education: Patient Medication [...] for re-eval. 01/24/2012 Appointment: Kim Walker WPtel: [facility] Other 01/24/2012 Patient Education: Patient Medication Summary Completed 01/24/2012 Patient Education: Iliotibial Band Syndrome Exercises Completed 01/24/2012 Patient Education: Iliotibial Band Syndr ome Exercises, Page 2: Illustration Completed 01/24/2012 Patient Education: Iliotibial Band Syndr ome Exercises, Page 1: Illustration Completed 01/24/2012 Visit Plan: Well Adult Female - exmax m completed. Pap and breast exam completed. [...] times daily. 10/31/2011 Appointment: Kim Walker WPtel: [facility]5 [facility] [address] Well Woman 10/31/2011 Patient Education: Patient Medication [...] time insomnia. 10/13/2011 Appointment: Kim Walker WPtel: [facility]5 [facility] [address] New Patient 10/13/2011 Patient Education: Patient Medication [...]
--- OUTSIDE RECORDS SUMMARY | 2019-12-04 06:56 | XMS REPORT | CCD ---
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 Name Role Phone PP Unavailable CCM Unavailable Summary Purpose Interface Exchange Insurance Providers Payer name Policy type / Coverage type Covered constitution party ID Effective Begin Date Effective End Date RACHEL GBA [id number] 2017 Unknown [employer] [id number] Unknown Family history Mother Diagnosis Age At Onset Breast cancer Unknown Brother Diagnosis Age At Onset Arthritis Unknown Grandson Diagnosis Age At Onset Diabetes Unknown Social History Social History Element Codes Description Effective Dates Tobacco history SNOMED CT: 9520786 Former smoker quit 03/201301/22/2014 Employment Unknown Retir [...] XT 180 mg cap clifford,extended release RxNorm: 878160 TAKE 1 CAPSULE BY ALEXANDER TH AT BEDTIME 11/05/2018 No Stop Date Active Synthroid 75 mcg tablet RxNorm: 616044 TAKE 1 TABLET BY MOUTH ONCE DAILY 10/17/2018 No Stop Date Active Prozac 40 mg capsule RxNorm: 378637 TAKE 1 CAPSULE BY MOUTH ONCE DAILY 10/08/2018 No Stop Date Active Xanax 0.25 mg tablet RxNorm: 242932 Tablet(s) TAKE 1/2 TO 1 (ONE-HALF TO ONE ) TABLET BY MOUTH 4 TIMES DAILY NEEDED 08/28/2018 11/25/2018 Inactive Cartia XT 180 mg cap clifford,extended release RxNorm: 252793 TAKE 1 CAPSULE BY ALEXANDER TH AT BEDTIME 07/30/2018 11/04/2018 Inactive Prozac 40 mg capsule RxNorm: 292458 TAKE ONE CAPSULE BY MOUTH ONCE DAILY 06/08/2018 10/07/2018 In active Xanax 0.25 mg tablet RxNorm: 356219 TAKE 1/2 TO 1 (ONE-HALF TO ONE) TABLET B Y MOUTH 4 TIMES DAILY NEEDED 05/18/2018 No Stop Date Active Synthroid 75 mcg tablet RxNorm: 787413 1 Tablet(s) PO daily 03/29/2018 09/24/2018 Inactive will call for refill when ready Xanax 0.25 mg tablet RxNorm: 311781 1/2 - 1 Tablet(s) PO QID as needed anxie ty attack 01/24/2018 05/18/2018 Inactive Synthroid 25 mcg tablet RxNorm: 730974 1 Tablet(s) PO daily 12/15/2017 03/28/2018 Inactive take on an empty stomach by itself Flagyl 500 mg tablet RxNorm: 637631 1 Tablet(s) PO TID 12/15/2017 12/14/2017 Inactive Flagyl 500 mg tablet RxNorm: 171283 1 Tablet(s) PO TID 12/15/2017 12/24/2017 Inactive Synthroid 25 mcg tablet RxNorm: 489273 1 Tablet(s) PO daily 12/15/2017 12/14/2017 Inactive Fish Oil 360 mg-1,20 0 mg capsule,delayed release RxNorm: 1 Capsule(s) PO BID 12/14/2017 No Stop Date Active Xifaxan 550 mg tablet RxNorm: 955401 1 Tablet(s) PO TID 12/14/2017 12/27/2017 Inactive Xanax 0.25 mg tablet RxNorm: 370281 1/2 - 1 Tablet(s) PO QID as needed anxie ty attack 12/01/2017 07/11/2018 Inactive Xanax 0.25 mg tablet RxNorm: 712151 1/2 - 1 Tablet(s) PO QID as needed anxie ty attack 08/22/2017 08/28/2017 Inactive Cartia XT 180 mg cap clifford,extended release RxNorm: 981647 Capsule(s) TAKE ONE C APSULE BY MOUTH ONCE DAILY AT BEDTIME 08/04/2017 07/29/2018 Inactive Prozac 40 mg capsule RxNorm: 779101 Capsule(s) TAKE ONE CAPSULE BY MOUTH ONC E DAILY 06/08/2017 06/07/2018 Inactive Prozac 40 mg capsule RxNorm: 782742 TAKE ONE CAPSULE BY MOUTH ONCE DAILY 05/30/2017 06/07/2017 In active Cartia XT 180 mg cap clifford,extended release RxNorm: 377980 TAKE ONE CAPSULE BY M OUTH ONCE DAILY AT BEDTIME 05/08/2017 08/03/2017 Inactive Prozac 40 mg capsule RxNorm: 891852 TAKE ONE CAPSULE BY MOUTH ONCE DAILY 02/03/2017 05/29/2017 In active Eliquis 5 mg tablet RxNorm: 4210279 1 Tablet(s) PO BID 11/09/2016 12/05/2016 Inactive Eliquis 5 mg tablet RxNorm: 5357892 1 Tablet(s) PO BID 11/09/2016 11/08/2016 Inactive Cartia XT 180 mg cap clifford,extended release RxNorm: 807129 1 Capsule(s) PO QHS 11/08/2016 05/06/2017 In active Prozac 40 mg capsule RxNorm: 407731 TAKE ONE CAPSULE BY MOUTH ONCE DAILY 11/07/2016 02/02/2017 In active Phenergan with Codei ne Syrup RxNorm: 2.5 Milliliter(s) PO QHS as needed 10/28/2016 07/11/2018 In active levofloxacin 500 mg tablet RxNorm: 054190 1 Tablet(s) PO daily 10/28/2016 11/06/2016 Inactive Prozac 40 mg capsule RxNorm: 382018 TAKE ONE CAPSULE BY MOUTH ONCE DAILY 08/01/2016 10/29/2016 In active Prozac 40 mg capsule RxNorm: 853603 1 Capsule(s) PO daily 11/05/2015 05/02/2016 Inactive [SAVINGS FOR UNINSURED PATIENTS -- BIN:0 36254, PCN: ASPROD1, Group: [id number], ID# [id number], Process claim through [employer], for questions: . THIS IS NOT INSURANCE.] Xanax 0.25 mg tablet RxNorm: 691573 1/2 - 1 Tablet(s) PO QID as needed anxie ty attack 11/02/2015 01/29/2016 Inactive Prozac 40 mg capsule RxNorm: 025299 Capsule(s) TAKE ONE CAPSULE BY MOUTH ONC E DAILY 08/12/2015 08/11/2015 Inactive NEEDS APPT Prozac 40 mg capsule RxNorm: 107329 TAKE ONE CAPSULE BY MOUTH ONCE DAILY 08/12/2015 07/31/2016 In active hydrocortisone aceta te 25 mg rectal suppository RxNorm: 2080358 1 Suppository RTL QH S 10/02/2014 07/11/2018 Inactive daily HS x 1 week, then twice weekly the n as needed Prozac 40 mg capsule RxNorm: 073641 TAKE ONE CAPSULE BY MOUTH ONCE DAILY 07/31/2014 01/26/2015 In active Prozac 40 mg capsule RxNorm: 053917 1 Capsule(s) PO daily 07/30/2014 02/24/2015 Inactive [SAVINGS FOR NON-COVERED DRUGS -- BIN:00 3585, PCN: ASPROD1, Group: XXXXX, ID# [id number], Questions: . THIS IS NOT INSURANCE.] Xanax 0.25 mg tablet RxNorm: 411497 1/2 - 1 Tablet(s) PO QID as needed anxie ty attack 01/22/2014 03/22/2014 Inactive Prozac 40 mg capsule RxNorm: 289602 1 Capsule(s) PO daily 01/22/2014 07/20/2014 Inactive [SAVINGS FOR UNINSURED PATIENTS -- BIN:0 17234, PCN: ASPROD1, Group: [id number], ID# [id number], Process claim through [employer], for questions: . THIS IS NOT INSURANCE.] Prozac 20 mg capsule RxNorm: 949532 1 Capsule(s) PO daily 08/08/2013 01/21/2014 Inactive Prozac 20 mg capsule RxNorm: 072745 1 Capsule(s) PO daily 07/19/2013 08/07/2013 Inactive Prozac 20 mg capsule RxNorm: 935751 1 Capsule(s) PO daily 02/12/2013 07/18/2013 Inactive Influenza Virus Vacc ine 0.5 mL RxNorm: IM 02/16/2012 02/16/2012 Inactive meloxicam 7.5 mg tablet RxNorm: 986041 1 Tablet(s) PO BID ONE PILL IN MORNING, IF PAIN IS UNCONTROLLED, MAY TAKE ONE EXTRA PILL IN THe PM do not take with ibuprofen or aleve 01/24/2012 02/15/2012 Inactive Aspirin Low Dose 81 mg tablet,delayed release RxNorm: 751341 1 Tablet(s) PO daily No Start Date Active Tylenol 500 mg RxNorm: 1 Tablet(s) PO BID No Start Date Active Repatha SureClick 14 0 mg/mL subcutaneous pen injector RxNorm: 1362424 1 Milliliter(s) SQ Q2 weeks No Start Date Active amiodarone 200 mg ta blet RxNorm: 941789 1/2 Tablet(s) PO daily No Start Date Active melatonin 10 mg tablet RxNorm: 2863111 1 Tablet(s) PO QHS No Start Date Active pantoprazole 40 mg t ablet,delayed release RxNorm: 689964 1 Tablet(s) PO daily No Start Date Active isosorbide mononitra te ER 30 mg tablet,extended release 24 hr RxNorm: 900167 1 Tablet(s) PO daily No Start Date Active melatonin 3 mg Tab RxNorm: 791199 2 Tablet(s) PO QHS No Start Date 12/13/2017 Inactive Xarelto 20 mg tablet RxNorm: 6734994 1 Tablet(s) PO QPM No Start Date 12/13/2017 Inactive Tylenol 8 Hour 650 m g tablet,extended release RxNorm: 4676903 1 Tablet(s) PO BID No Start Date 07/12/2018 Inactive Calcium 600 + D(3) 6 00 mg (1,500 mg)-400 unit Tab RxNorm: 577973 1 Tablet(s) PO QPM No Start Date 12/13/2017 Inactive prasugrel 10 mg tablet RxNorm: 735218 1 Tablet(s) PO daily No Start Date 07/11/2018 Inactive Fish Oil 360 mg-1,20 0 mg capsule,delayed release RxNorm: 1 Capsule(s) PO daily No Start Date 12/13/2017 Inactive PreserVision AREDS 2 oral RxNorm: 6047910 oral No Start Date 07/11/2018 Inactive Prozac 20 mg capsule RxNorm: 493584 1 Capsule(s) PO daily No Start Date 02/11/2013 Inactive Breo Ellipta inhalation RxNorm: 3375537 inhalation No Start Date 12/13/2017 Inactive fenofibrate nanocrys tallized 145 mg tablet RxNorm: 383083 Tablet(s) PO daily No Start Date 10/31/2016 Inactive Centrum Silver Ultra Women's Tab RxNorm: 1 Tablet(s) PO QHS No Start Date 10/31/2016 Inactive Cartia XT 120 mg cap clifford,extended release RxNorm: 553650 1 Capsule(s) PO QHS No Start Date [...] Item Item Code Result Date Free T4 Hhh427 FREE T4 1.12 ng/dL 09/28/2018 Tsh Ord6 TSH (3rd IS) 3.54 uIU/mL 09/28/2018 Tsh Ord6 TSH (3rd IS) 4.90 uIU/mL 06/25/2018 Free T4 Ouj295 FREE T4 1.15 ng/dL 06/25/2018 Free T4 Yql210 FREE T4 0.52 ng/dL 03/22/2018 Tsh Ord6 [...] 33.4 pg 12/15/2017 Cbc With Differential Ord2 Pacific% 17.3 % 12/15/2017 Cbc With Differential Ord2 [...] 0.78 K/ul 12/15/2017 Cbc With Differential Ord2 Pacific ABS# 0.4 K/ul 12/15/2017 Cbc With Differential Ord2 Eos ABS# 0.1 K/ul 12/15/2017 Cbc With Differential Ord2 Baso ABS# 0.0 K/ul 12/15/2017 Free T4 Bsq992 FREE T4 0.34 ng/dL 12/15/2017 Test(s) Not Perfromed [id number] Test(s) Not Performed Test(s) Not Performed. See Below: 12/14/2017 Test(s) Not Perfromed [id number] TEST NAME CBC 12/14/2017 Test(s) Not Perfromed [id number] Rejection Reason No Suitable Specimen Receive d 12/14/2017 Test(s) Not Perfromed [id number] COMMENT Grace notified for redraw 12/14/2017 Test(s) Not Perfromed [id number] Automatic Spinning Lathe Setter Wale Beckwitht 12/14/2017 Tsh Ord6 TSH (3rd IS) 48.79 uIU/mL 12/14/2017 Comp Metabolic Kop016 NA 137 mEq/L 12/14/2017 Comp Metabolic Tuk104 K 4.3 mEq/L 12/14/2017 Comp Metabolic Bbx422 CL 101 mEq/L 12/14/2017 Comp Metabolic Egz702 CO2 29.0 mEq/L 12/14/2017 Comp Metabolic Sme651 AN ION GAP 11 12/14/2017 Comp Metabolic Lhv437 GL UCOSE 81 mg/dL 12/14/2017 Comp Metabolic Hnk219 Cr eat 0.7 mg/dL 12/14/2017 Comp Metabolic Mmc970 eG FR 86 ml/min/1.73m2 12/14 Comp Metabolic Rze223 BUN 14 mg/dL 12/14/2017 Comp Metabolic Xpl660 B/ C Ratio 19.7 Ratio 12/14/2017 Comp Metabolic Tnx576 CA LCIUM 9.2 mg/dL 12/14/2017 Comp Metabolic Ltw104 AL K PHOS 112 U/L 12/14/2017 Comp Metabolic Bkw287 T(SGOT) 25 U/L 12/14/2017 Comp Metabolic Wsv495 AL T(SGPT) 20 U/L 12/14/2017 Comp Metabolic Xmy152 BI LI T 0.8 mg/dL 12/14/2017 Comp Metabolic Uhb844 AL BUMIN 4.1 g/dL 12/14/2017 Comp Metabolic Ogu104 TP RO 6.9 g/dL 12/14/2017 Comp Metabolic Yve673 GL OB 2.9 g/dL 12/14/2017 Comp Metabolic Yai358 A/ G Ratio 1.4 Ratio 12/14/2017 Comp Metabolic Nhu697 Os mo 273 mOsmo 12/14/2017 LIPID GRP 8503942 HDL TE ST 70 MG/DL 01/23/2014 LIPID GRP TRIG 134 MG/DL 01/23/2014 LIPID GRP TEST L DL 117 MG/DL 01/23/2014 LIPID GRP CHOL 214 MG/DL 01/23/2014 LIPID GRP RCHOL/ HDL 3.06 RATIO 01/23/2014 LIPID GRP NON-HD L CH 144 MG/DL 01/23/2014 TSH 0054343 TSH 1.784 uIU/ML 01/23/2014 CBC 2070965 WBC 4.7 10e9/L 01/23/2014 CBC 6172171 RBC 4.10 10e12/L 01/23/2014 CBC 3463580 HGB 13.3 g/dL 01/23/2014 CBC 1014229 HCT DET 39.2 % 01/23/2014 CBC 3261165 MCV 95.6 fL 01/23/2014 CBC 2890412 MCH 32.4 pg 01/23/2014 CBC 4014894 MCHC 33.9 g/dL 01/23/2014 CBC 2886708 PLT 232 10e9/L 01/23/2014 CBC 1607329 MPV 10.9 fL 01/23/2014 CBC 9305718 DORON % 57.4 % 01/23/2014 CBC 7359871 LY % 28.0 % 01/23/2014 CBC 3608483 MON % 12.9 % 01/23/2014 CBC 9437623 EOS % 1.3 % 01/23/2014 CBC 3695073 BASO % 0.4 % 01/23/2014 CBC 1472563 RDW 12.1 % 01/23/2014 CBC 7104777 ABS DORON 2.70 10e9/L 01/23/2014 CBC 9907917 ABS LYMPH 1.32 10e9/L 01/23/2014 CBC 2658378 ABS MONO 0.61 10e9/L 01/23/2014 CBC 3684420 ABS EOS 0.06 10e9/L 01/23/2014 CBC 0866763 ABS BASO 0.02 10e9/L 01/23/2014 CBC 4571701 RDW-SD 41.2 fL 01/23/2014 CHEM 14 20271201 AST 18 U/L 01/23/2014 CHEM 14 20271201 ALT 13 IU/L 01/23/2014 CHEM 14 20271201 BUN 16 MG/DL 01/23/2014 CHEM 14 8098950 ALBUMIN 4.2 GM/DL 01/23/2014 CHEM 14 0733478 CHLORIDE 105 MMOL/L 01/23/2014 CHEM 14 3708880 BILI TOT 0.7 MG/DL 01/23/2014 CHEM 14 6793062 ALK PHOS 61 U/L 01/23/2014 CHEM 14 4694311 SODIUM 138 MMOL/L 01/23/2014 CHEM 14 7055518 CREATINI NE 0.65 MG/DL 01/23/2014 CHEM 14 4725832 CALCIUM 9.5 MG/DL 01/23/2014 CHEM 14 1747145 POTASSIUM 4.4 MMOL/L 01/23/2014 CHEM 14 9640295 PROT TOT 6.8 GM/DL 01/23/2014 CHEM 14 8004322 GLUCOSE 93 MG/DL 01/23/2014 CHEM 14 8562993 BICARB 28 MMOL/L 01/23/2014 CHEM 14 4470223 ANION GAP 5 MEQ/L 01/23/2014 GFR CALC 2839002 GFR AA >60 ML/MIN 01/23/2014 GFR CALC 0172784 GFR NON -AA >60 ML/MIN 01/23/2014 URIC ACID 5975069 URIC A KYLE 5.7 MG/DL 10/13/2011 CHEM 14 6179952 AST 19 U/L 10/13/2011 CHEM 14 1954059 ALT 16 U/L 10/13/2011 CHEM 14 8676369 BUN 21 MG/DL 10/13/2011 CHEM 14 9825099 ALBUMIN 4.2 GM/DL 10/13/2011 CHEM 14 3047356 CHLORIDE 103 MMOL/L 10/13/2011 CHEM 14 1416307 BILI TOT 0.6 MG/DL 10/13/2011 CHEM 14 0438275 ALK PHOS 71 U/L 10/13/2011 CHEM 14 1851571 SODIUM 141 MMOL/L 10/13/2011 CHEM 14 8860269 CREATINI NE 0.65 MG/DL 10/13/2011 CHEM 14 4076817 CALCIUM 9.3 MG/DL 10/13/2011 CHEM 14 6714729 POTASSIUM 4.2 MMOL/L 10/13/2011 CHEM 14 4578089 PROT TOT 6.8 GM/DL 10/13/2011 CHEM 14 8022622 GLUCOSE 69 MG/DL 10/13/2011 CHEM 14 9774760 BICARB 27 MMOL/L 10/13/2011 CHEM 14 3321189 ANION GAP 11 MMOL/L 10/13/2011 CBC 6099839 WBC 6.1 10e9/L 10/13/2011 CBC 8590832 RBC 4.11 10e12/L 10/13/2011 CBC 6602501 HGB 13.3 g/dL 10/13/2011 CBC 0825927 HCT DET 39.6 % 10/13/2011 CBC 5673993 MCV 96.4 fL 10/13/2011 CBC 4793091 MCH 32.4 pg 10/13/2011 CBC 7874919 MCHC 33.6 g/dL 10/13/2011 CBC 1767569 PLT 238 10e9/L 10/13/2011 CBC 9176457 MPV 11.7 fL 10/13/2011 CBC 5670584 DORON % 50.2 % 10/13/2011 CBC 5334726 LY % 35.6 % 10/13/2011 CBC 5896847 MON % 12.7 % 10/13/2011 CBC 9231264 EOS % 1.2 % 10/13/2011 CBC 6727714 BASO % 0.3 % 10/13/2011 CBC 0152163 RDW 12.3 % 10/13/2011 CBC 0099588 ABS DORON 3.06 10e9/L 10/13/2011 CBC 4756206 ABS LYMPH 2.17 10e9/L 10/13/2011 CBC 9138909 ABS MONO 0.77 10e9/L 10/13/2011 CBC 4903773 ABS EOS 0.07 10e9/L 10/13/2011 CBC 2651018 ABS BASO 0.02 10e9/L 10/13/2011 CBC 0879691 RDW-SD 42.3 fL 10/13/2011 GFR CALC 7406888 GFR AA >60 ML/MIN 10/13/2011 GFR CALC 5661652 GFR NON -AA >60 ML/MIN 10/13/2011 ESR 1907728 ESR 14 MM/HR 10/13/2011 Review of Systems [...] 1994 Ears/Nose/Throat oral cavity/pharynx/larynx Overall: no masses 02/07/2013 [...] tenderness 02/07/2013 None Full Exam - General 1995 Abdomen abdominal exam Overall: normal bowel sounds [...] 1995 Ears/Nose/Throat oral cavity/pharynx/larynx Overall: no masses 01/24/2012 [...] SY CPT-4: G8553 01/24/2012 ROUTINE VENIPUNCTURE CPT-4: 95177 10/13/2011 Vital Signs Date Vital 07/12/2018 Blood Pressure 1: 126/68 Code: 8480-6 BMI: 28.4 Code: 83415-6 Heart Rate 1: 71 bpm Height: 5' SpO2: 97% Weight: 148 lbs 12/14/2017 Blood Pressure 1: 138/80 Code: 8480-6 BMI: 28.8 Code: 54346-7 Heart Rate 1: 73 bpm Height: 5' SpO2: 98% Weight: 150 lbs 12/06/2016 Blood Pressure 1: 146/82 Code: 8480-6 BMI: 26.8 Code: 38858-0 Heart Rate 1: 58 bpm Height: 5' [...] 1: 118/74 Code: 8480-6 BMI: 25.7 Code: 93146-7 Heart Rate 1: 64 bpm Height: 5' SpO2: 98% Weight: 134 lbs 10/02/2014 Blood Pressure 1: 136/88 Code: 8480-6 BMI: 25.9 Code: 64977-2 Heart Rate 1: 68 bpm Height: 5' SpO2: 98% Weight: 135 lbs 01/22/2014 Blood Pressure 1: 122/64 Code: 8480-6 BMI: 25.7 Code: 65398-6 Heart Rate 1: 72 bpm Height: 5' Weight: 134 lbs 02/07/2013 Blood Pressure 1: 140/80 Code: 8480-6 BMI: 23.6 Code: 28641-7 Height: 5' Weight: 123 lbs 02/16/2012 Blood Pressure 1: 102/68 Code: 8480-6 Heart Rate 1: 68 bpm Respiratory Rate: 18 bpm Weight: 131 lbs 01/24/2012 Blood Pressure 1: 120/72 Code: 8480-6 Heart Rate 1: 72 bpm Respiratory Rate: 16 bpm Weight: 133 lbs 10/31/2011 Blood Pressure 1: 136/84 Code: 8480-6 BMI: 23.2 Code: 25842-4 Heart Rate 1: 74 bpm Height: 5'2" Respiratory Rate: 16 bpm Weight: 127 lbs 10/13/2011 Blood Pressure 1: 138/84 Code: 8480-6 BMI: 23.2 Code: 79646-7 Heart Rate 1: 80 bpm Height: 5'2" Respiratory Rate: 16 bpm Weight: 127 lbs Functional Status No Functional Status data History of Present Illness Symptom Name Status Resu lt Effective Date Notes Onset and Resolution o ngoing 07/12/2018 None Location in [facility] of in the lower back area [...] Quality blee ding 02/07/2013 None hemorrhoids 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 P ATIENT, LEVEL III Diagnosis: Low back pain[ICD10: M54.5] Jennifer Walker MD, [facility] CPT- 4: 28862 07/12/2018 ([id number]) 48671 EST. P ATIENT, LEVEL IV Diagnosis: Paroxysmal atrial fibrillation[ICD10: I48.0] Diagnosis: Abnormal weight gain[ICD10: R63.5] Diagnosis: Irritable bowel syndrome with diarrhea[ICD10: K58.0] Jennifer Walker MD, [facility] CPT-4: 86239 12/14/2017 ([id number]) 96289 EST. P ATIENT, LEVEL III Diagnosis: Paroxysmal atrial fibrillation[ICD10: I48.0] Jennifer Walker MD, [facility] CPT-4: 31919 12/06/2016 ([id number]) 75687 EST. P ATIENT, LEVEL IV Diagnosis: Paroxysmal atrial fibrillation[ICD10: I48.0] Diagnosis: Pneumonia, unspecified organism[ICD10: J18.9] Jennifer Walker MD, [facility] CPT-4: 86750 11/08/2016 ([id number]) 96437 EST. P ATIENT, LEVEL III Diagnosis: Cough[ICD10: R05] Diagnosis: Pneumonia, unspecified organism[ICD10: J18.9] Jennifer Walker MD, [facility] CPT-4: 29704 11/01/2016 ([id number]) 80885 EST. P ATIENT, LEVEL III Diagnosis: Generalized anxiety disorder[ICD10: F41.1] [facility] CPT-4: 72423 11/05/2015 ([id number]) 38542 EST. P ATIENT, LEVEL III Diagnosis: Rectal bleeding[ICD9: 569.3] Jennifer Walker MD, [facility] CPT- 4: 59029 10/02/2014 ([id number]) 13739 EST. P ATIENT, LEVEL III Diagnosis: Anxiety, generalized[ICD9: 300.02] Diagnosis: Depression[ICD9: 311] [facility] CPT-4: 92632 01/22/2014 ([id number]) 86860 EST. [facility] Diagnosis: Bloody feces[ICD9: 578.1] [facility] CPT-4: 54275 02/07/2013 ([id number]) 88680 EST. P ATIENT, LEVEL III Diagnosis: OSTEOARTH NOS-UNSPEC[ICD9: 715.90] Diagnosis: MUSCLE/LIGAMENT DIS NEC[ICD9: 728.89] [facility] CPT-4: 00665 02/16/2012 ([id number]) 87012 EST. [facility], LEV[facility] III Diagnosis: Iliotibial band syndrome[ICD9: 728.89] Diagnosis: OSTEOARTH NOS-UNSPEC[ICD9: 715.90] Diagnosis: PAIN IN LIMB[ICD9: 729.5] [facility] CPT-4: 83523 01/24/2012 ([id number]) 54681 EST. [facility], LEVEL IV Diagnosis: OSTEOARTH NOS-UNSPEC[ICD9: 715.90] Diagnosis: ROUTINE GYNE EXAM[ICD9: V72.31] [facility] CPT-4: 92056 10/31/2011 OFFICE VISIT, NEW - LEVEL 4 Diagnosis: Osteoarthritis[ICD9: 715.90] Diagnosis: INSOMNIA NOS[ICD9: 780.52] Diagnosis: PAIN IN LIMB[ICD9: 729.5] [facility] CPT-4: 32820 10/13/2011 Plan of Care Planned Activity Notes C odes Status Date Visit Plan: Low back pain- patient' s pain is actually improved -recommend MRI -refer to Dr Crouch if needed- okay to use tylenol for pain -also discussed PT if indicated-patient verbalized understanding of plan. 07/12/2018 Appointment: Jennifer Vera WPtel: [address] [place], [place] [phone] (30 min) [facility] 07/12/2018 Patient Education: Patient Medication Summary Completed 07/12/2018 Patient Education: Back Pain Completed 07/12/2018 Care Plan: MRI LUMBAR SPINE [facility] : 60577-4 Pending 07/12/2018 Patient Education: Patient Medication Summary [...] including TSH 12/14/2017 Appointment: Jennifer Vera WPtel: [facility] (15 min) Moderate 12/14/2017 Patient Education: Patient Medication Summary Completed 12/14/2017 Care Plan: Cbc With Differential Pending 12/14/2017 Visit Plan: Afib-converted to NSR b y Dr Solorzano-on xarelto- instructed patient to report if they start to feel as if their heart rate is becoming uncontrolled or other symptoms develop. Patient verbalized understan zayra. 12/06/2016 Appointment: Jennifer Vera WPtel: [address] [place], [place] [phone] (15 min) Moderate 12/06/2016 Patient Education: Patient Medication Summary Completed 12/06/2016 Visit Plan: Afib-ordered EKG to con firm-increase cartia for heart rate control and start eliquis 5mg twice daily-follow up with Dr Solorzano Pneumonia-finished abx-no further treatment indicated 11/08/2016 Appointment: Jennifer Vera WPtel: [address] [place], [place] [phone] (30 min) Complex 11/08/2016 Patient Education: Patient Medication Summary Completed 11/08/2016 Visit Plan: Pneumonia-on abx per ur gent-continue current treatment and follow up in 1 week to ensure resolution of symptoms. Call sooner for worsening or new symptoms. Patient verbalized understanding of plan. 11/01/2016 Appointment: Jennifer Vera WPtel: [phone] (15 min) Moderate 11/01/2016 Patient Education: [...] current medications. 11/05/2015 Appointment: Jennifer Vera WPtel: [phone] (15 min) Moderate 11/05/2015 Patient Education: [...] panic attacks 01/22/2014 Appointment: Kim Walker WPtel: [address] [place], [place] [phone] Sick 01/22/2014 Patient Education: Patient Medication Summary Completed 01/22/2014 Care Plan: COMPLETE CBC AUTOMATED LOINC : 86536-4 Ordered 01/22/2014 Visit Plan: Blood in stool [...] work up. 02/07/2013 Appointment: Kim Walker WPtel: [facility] Follow up 02/07/2013 Patient Education: Patient Medication Summary Completed 02/07/2013 Visit Plan: Arthritis- occasionally uncontrolled symptoms- recommend pt to take antiinflammatory as directed for pain control. Use tylenol for break through pain symptoms.Start mobic daily Leg length discrepency - recommended pt to place: dr gilliland inserts- 2 in the left shoe 02/16/2012 Appointment: Kim Walker WPtel: [phone] [facility] Follow up 02/16/2012 Patient Education: Patient Medication [...] for re-eval. 01/24/2012 Appointment: Kim Walker WPtel: [facility] [place] Other 01/24/2012 Patient Education: Patient Medication [...] times daily. 10/31/2011 Appointment: Kim Walker WPtel: [phone] [facility] [facility] 10/31/2011 Patient Education: Patient Medication [...] napping worsens night time insomnia. 10/13/2011 Appointment: iKm Walker WPtel: [address] [facility] New Patient 10/13/2011 Patient Education: Patient [...]
--- OUTSIDE RECORDS SUMMARY | 2019-12-04 06:58 | XMS REPORT | CCD ---
Author Author Linda Walker Organization Kim Walker MD, [facility] Address [address] [place] [address] Phone Care Team Providers Care Counselor [employer] Name Role Phone PP Unavailable CCM Unavailable Summary Purpose Interface Exchange Insurance Providers Payer name Policy type / Coverage type Covered constitution party ID Effective Begin Date Effective End Date RACHEL GBA [id number] 2017 Unknown [employer] [id number] Unknown Family history Mother Diagnosis Age At Onset Breast cancer Unknown Brother Diagnosis Age At Onset Arthritis Unknown Grandson Diagnosis Age At Onset Diabetes Unknown Social History Social History Element Codes Description Effective Dates Tobacco history SNOMED CT: 4027655 Former smoker quit 03/201301/22/2014 Employment Unknown Retir [...] XT 180 mg cap clifford,extended release RxNorm: 131578 TAKE 1 CAPSULE BY ALEXANDER TH AT BEDTIME 11/05/2018 No Stop Date Active Synthroid 75 mcg tablet RxNorm: 323529 TAKE 1 TABLET BY MOUTH ONCE DAILY 10/17/2018 No Stop Date Active Prozac 40 mg capsule RxNorm: 970516 TAKE 1 CAPSULE BY MOUTH ONCE DAILY 10/08/2018 No Stop Date Active Xanax 0.25 mg tablet RxNorm: 992803 Tablet(s) TAKE 1/2 TO 1 (ONE-HALF TO ONE ) TABLET BY MOUTH 4 TIMES DAILY NEEDED 08/28/2018 No Stop Date Active Cartia XT 180 mg cap clifford,extended release RxNorm: 346889 TAKE 1 CAPSULE BY ALEXANDER TH AT BEDTIME 07/30/2018 11/04/2018 Inactive Prozac 40 mg capsule RxNorm: 639596 TAKE ONE CAPSULE BY MOUTH ONCE DAILY 06/08/2018 10/07/2018 In active Xanax 0.25 mg tablet RxNorm: 263641 TAKE 1/2 TO 1 (ONE-HALF TO ONE) TABLET B Y MOUTH 4 TIMES DAILY NEEDED 05/18/2018 No Stop Date Active Synthroid 75 mcg tablet RxNorm: 552295 1 Tablet(s) PO daily 03/29/2018 09/24/2018 Inactive will call for refill when ready Xanax 0.25 mg tablet RxNorm: 861323 1/2 - 1 Tablet(s) PO QID as needed anxie ty attack 01/24/2018 05/18/2018 Inactive Synthroid 25 mcg tablet RxNorm: 234046 1 Tablet(s) PO daily 12/15/2017 03/28/2018 Inactive take on an empty stomach by itself Flagyl 500 mg tablet RxNorm: 880260 1 Tablet(s) PO TID 12/15/2017 12/14/2017 Inactive Flagyl 500 mg tablet RxNorm: 817892 1 Tablet(s) PO TID 12/15/2017 12/24/2017 Inactive Synthroid 25 mcg tablet RxNorm: 544613 1 Tablet(s) PO daily 12/15/2017 12/14/2017 Inactive Fish Oil 360 mg-1,20 0 mg capsule,delayed release RxNorm: 1 Capsule(s) PO BID 12/14/2017 No Stop Date Active Xifaxan 550 mg tablet RxNorm: 676298 1 Tablet(s) PO TID 12/14/2017 12/27/2017 Inactive Xanax 0.25 mg tablet RxNorm: 653748 1/2 - 1 Tablet(s) PO QID as needed anxie ty attack 12/01/2017 07/11/2018 Inactive Xanax 0.25 mg tablet RxNorm: 139892 1/2 - 1 Tablet(s) PO QID as needed anxie ty attack 08/22/2017 08/28/2017 Inactive Cartia XT 180 mg cap clifford,extended release RxNorm: 487924 Capsule(s) TAKE ONE C APSULE BY MOUTH ONCE DAILY AT BEDTIME 08/04/2017 07/29/2018 Inactive Prozac 40 mg capsule RxNorm: 544568 Capsule(s) TAKE ONE CAPSULE BY MOUTH ONC E DAILY 06/08/2017 06/07/2018 Inactive Prozac 40 mg capsule RxNorm: 606384 TAKE ONE CAPSULE BY MOUTH ONCE DAILY 05/30/2017 06/07/2017 In active Cartia XT 180 mg cap clifford,extended release RxNorm: 427870 TAKE ONE CAPSULE BY M OUTH ONCE DAILY AT BEDTIME 05/08/2017 08/03/2017 Inactive Prozac 40 mg capsule RxNorm: 412946 TAKE ONE CAPSULE BY MOUTH ONCE DAILY 02/03/2017 05/29/2017 In active Eliquis 5 mg tablet RxNorm: 1659509 1 Tablet(s) PO BID 11/09/2016 12/05/2016 Inactive Eliquis 5 mg tablet RxNorm: 8778688 1 Tablet(s) PO BID 11/09/2016 11/08/2016 Inactive Cartia XT 180 mg cap clifford,extended release RxNorm: 626471 1 Capsule(s) PO QHS 11/08/2016 05/06/2017 In active Prozac 40 mg capsule RxNorm: 546766 TAKE ONE CAPSULE BY MOUTH ONCE DAILY 11/07/2016 02/02/2017 In active Phenergan with Codei ne Syrup RxNorm: 2.5 Milliliter(s) PO QHS as needed 10/28/2016 07/11/2018 In active levofloxacin 500 mg tablet RxNorm: 419283 1 Tablet(s) PO daily 10/28/2016 11/06/2016 Inactive Prozac 40 mg capsule RxNorm: 585607 TAKE ONE CAPSULE BY MOUTH ONCE DAILY 08/01/2016 10/29/2016 In active Prozac 40 mg capsule RxNorm: 596810 1 Capsule(s) PO daily 11/05/2015 05/02/2016 Inactive [SAVINGS FOR UNINSURED PATIENTS -- BIN:0 49090, PCN: ASPROD1, Group: [id number], ID# [id number], Process claim through [employer], for questions: . THIS IS NOT INSURANCE.] Xanax 0.25 mg tablet RxNorm: 644062 1/2 - 1 Tablet(s) PO QID as needed anxie ty attack 11/02/2015 01/29/2016 Inactive Prozac 40 mg capsule RxNorm: 859895 Capsule(s) TAKE ONE CAPSULE BY MOUTH ONC E DAILY 08/12/2015 08/11/2015 Inactive NEEDS APPT Prozac 40 mg capsule RxNorm: 260992 TAKE ONE CAPSULE BY MOUTH ONCE DAILY 08/12/2015 07/31/2016 In active hydrocortisone aceta te 25 mg rectal suppository RxNorm: 0507365 1 Suppository RTL QH S 10/02/2014 07/11/2018 Inactive daily HS x 1 week, then twice weekly the n as needed Prozac 40 mg capsule RxNorm: 768169 TAKE ONE CAPSULE BY MOUTH ONCE DAILY 07/31/2014 01/26/2015 In active Prozac 40 mg capsule RxNorm: 007007 1 Capsule(s) PO daily 07/30/2014 02/24/2015 Inactive [SAVINGS FOR NON-COVERED DRUGS -- BIN:00 3585, PCN: ASPROD1, Group: XXXXX, ID# [id number], Questions: . THIS IS NOT INSURANCE.] Xanax 0.25 mg tablet RxNorm: 950625 1/2 - 1 Tablet(s) PO QID as needed anxie ty attack 01/22/2014 03/22/2014 Inactive Prozac 40 mg capsule RxNorm: 391993 1 Capsule(s) PO daily 01/22/2014 07/20/2014 Inactive [SAVINGS FOR UNINSURED PATIENTS -- BIN:0 07843, PCN: ASPROD1, Group: [id number], ID# [id number], Process claim through [employer], for questions: . THIS IS NOT INSURANCE.] Prozac 20 mg capsule RxNorm: 412361 1 Capsule(s) PO daily 08/08/2013 01/21/2014 Inactive Prozac 20 mg capsule RxNorm: 208994 1 Capsule(s) PO daily 07/19/2013 08/07/2013 Inactive Prozac 20 mg capsule RxNorm: 512402 1 Capsule(s) PO daily 02/12/2013 07/18/2013 Inactive Influenza Virus Vacc ine 0.5 mL RxNorm: IM 02/16/2012 02/16/2012 Inactive meloxicam 7.5 mg tablet RxNorm: 762461 1 Tablet(s) PO BID ONE PILL IN MORNING, IF PAIN IS UNCONTROLLED, MAY TAKE ONE EXTRA PILL IN THe PM do not take with ibuprofen or aleve 01/24/2012 02/15/2012 Inactive Aspirin Low Dose 81 mg tablet,delayed release RxNorm: 460842 1 Tablet(s) PO daily No Start Date Active Tylenol 500 mg RxNorm: 1 Tablet(s) PO BID No Start Date Active Repatha SureClick 14 0 mg/mL subcutaneous pen injector RxNorm: 7841693 1 Milliliter(s) SQ Q2 weeks No Start Date Active amiodarone 200 mg ta blet RxNorm: 071170 1/2 Tablet(s) PO daily No Start Date Active melatonin 10 mg tablet RxNorm: 4647294 1 Tablet(s) PO QHS No Start Date Active pantoprazole 40 mg t ablet,delayed release RxNorm: 415343 1 Tablet(s) PO daily No Start Date Active isosorbide mononitra te ER 30 mg tablet,extended release 24 hr RxNorm: 551624 1 Tablet(s) PO daily No Start Date Active melatonin 3 mg Tab RxNorm: 068975 2 Tablet(s) PO QHS No Start Date 12/13/2017 Inactive Xarelto 20 mg tablet RxNorm: 0256609 1 Tablet(s) PO QPM No Start Date 12/13/2017 Inactive Tylenol 8 Hour 650 m g tablet,extended release RxNorm: 9523652 1 Tablet(s) PO BID No Start Date 07/12/2018 Inactive Calcium 600 + D(3) 6 00 mg (1,500 mg)-400 unit Tab RxNorm: 801128 1 Tablet(s) PO QPM No Start Date 12/13/2017 Inactive prasugrel 10 mg tablet RxNorm: 701635 1 Tablet(s) PO daily No Start Date 07/11/2018 Inactive Fish Oil 360 mg-1,20 0 mg capsule,delayed release RxNorm: 1 Capsule(s) PO daily No Start Date 12/13/2017 Inactive PreserVision AREDS 2 oral RxNorm: 7964640 oral No Start Date 07/11/2018 Inactive Prozac 20 mg capsule RxNorm: 634457 1 Capsule(s) PO daily No Start Date 02/11/2013 Inactive Breo Ellipta inhalation RxNorm: 9387213 inhalation No Start Date 12/13/2017 Inactive fenofibrate nanocrys tallized 145 mg tablet RxNorm: 186267 Tablet(s) PO daily No Start Date 10/31/2016 Inactive Centrum Silver Ultra Women's Tab RxNorm: 1 Tablet(s) PO QHS No Start Date 10/31/2016 Inactive Cartia XT 120 mg cap clifford,extended release RxNorm: 796251 1 Capsule(s) PO QHS No Start Date [...] Item Item Code Result Date Free T4 Raz340 FREE T4 1.12 ng/dL 09/28/2018 Tsh Ord6 TSH (3rd IS) 3.54 uIU/mL 09/28/2018 Tsh Ord6 TSH (3rd IS) 4.90 uIU/mL 06/25/2018 Free T4 Gnt946 FREE T4 1.15 ng/dL 06/25/2018 Free T4 Syq163 FREE T4 0.52 ng/dL 03/22/2018 Tsh Ord6 [...] 33.4 pg 12/15/2017 Cbc With Differential Ord2 [place]% 17.3 % 12/15/2017 Cbc With Differential Ord2 [...] 0.78 K/ul 12/15/2017 Cbc With Differential Ord2 [place] ABS# 0.4 K/ul 12/15/2017 Cbc With Differential Ord2 Eos ABS# 0.1 K/ul 12/15/2017 Cbc With Differential Ord2 Baso ABS# 0.0 K/ul 12/15/2017 Free T4 Pla161 FREE T4 0.34 ng/dL 12/15/2017 Test(s) Not Perfromed [id number] Test(s) Not Performed Test(s) Not Performed. See Below: 12/14/2017 Test(s) Not Perfromed [id number] TEST NAME CBC 12/14/2017 Test(s) Not Perfromed [id number] Rejection Reason No Suitable Specimen Receive d 12/14/2017 Test(s) Not Perfromed [id number] COMMENT Grace notified for redraw 12/14/2017 Test(s) Not Perfromed [id number] Stone Grader Wale Whitman 12/14/2017 Tsh Ord6 TSH (3rd IS) 48.79 uIU/mL 12/14/2017 Comp Metabolic Aux153 NA 137 mEq/L 12/14/2017 Comp Metabolic Hwp407 K 4.3 mEq/L 12/14/2017 Comp Metabolic Agt409 CL 101 mEq/L 12/14/2017 Comp Metabolic Bip137 CO2 29.0 mEq/L 12/14/2017 Comp Metabolic Bzz603 AN ION GAP 11 12/14/2017 Comp Metabolic Jku164 GL UCOSE 81 mg/dL 12/14/2017 Comp Metabolic Sco735 Cr eat 0.7 mg/dL 12/14/2017 Comp Metabolic Bfu013 eG FR 86 ml/min/1.73m2 12/14 Comp Metabolic Bdx456 BUN 14 mg/dL 12/14/2017 Comp Metabolic Smx993 B/ C Ratio 19.7 Ratio 12/14/2017 Comp Metabolic Cdq067 CA LCIUM 9.2 mg/dL 12/14/2017 Comp Metabolic Ldn694 AL K PHOS 112 U/L 12/14/2017 Comp Metabolic Pmc806 T(SGOT) 25 U/L 12/14/2017 Comp Metabolic Nxm101 AL T(SGPT) 20 U/L 12/14/2017 Comp Metabolic Ahv190 BI LI T 0.8 mg/dL 12/14/2017 Comp Metabolic Nkm091 AL BUMIN 4.1 g/dL 12/14/2017 Comp Metabolic Tuh588 TP RO 6.9 g/dL 12/14/2017 Comp Metabolic Nwf581 GL OB 2.9 g/dL 12/14/2017 Comp Metabolic Fya291 A/ G Ratio 1.4 Ratio 12/14/2017 Comp Metabolic Fce188 Os mo 273 mOsmo 12/14/2017 LIPID GRP 6390034 HDL TE ST 70 MG/DL 01/23/2014 LIPID GRP TRIG 134 MG/DL 01/23/2014 LIPID GRP TEST L DL 117 MG/DL 01/23/2014 LIPID GRP CHOL 214 MG/DL 01/23/2014 LIPID GRP RCHOL/ HDL 3.06 RATIO 01/23/2014 LIPID GRP NON-HD L CH 144 MG/DL 01/23/2014 TSH 5731190 TSH 1.784 uIU/ML 01/23/2014 CBC 1044630 WBC 4.7 10e9/L 01/23/2014 CBC 4630625 RBC 4.10 10e12/L 01/23/2014 CBC 2225017 HGB 13.3 g/dL 01/23/2014 CBC 3568020 HCT DET 39.2 % 01/23/2014 CBC 0523133 MCV 95.6 fL 01/23/2014 CBC 5977952 MCH 32.4 pg 01/23/2014 CBC 0559381 MCHC 33.9 g/dL 01/23/2014 CBC 3854203 PLT 232 10e9/L 01/23/2014 CBC 0855980 MPV 10.9 fL 01/23/2014 CBC 9028565 DORON % 57.4 % 01/23/2014 CBC 7785960 LY % 28.0 % 01/23/2014 CBC 2776003 MON % 12.9 % 01/23/2014 CBC 9296098 EOS % 1.3 % 01/23/2014 CBC 2556103 BASO % 0.4 % 01/23/2014 CBC 7596543 RDW 12.1 % 01/23/2014 CBC 3838118 ABS DORON 2.70 10e9/L 01/23/2014 CBC 9209939 ABS LYMPH 1.32 10e9/L 01/23/2014 CBC 8858746 ABS MONO 0.61 10e9/L 01/23/2014 CBC 8018238 ABS EOS 0.06 10e9/L 01/23/2014 CBC 5098009 ABS BASO 0.02 10e9/L 01/23/2014 CBC 8795320 RDW-SD 41.2 fL 01/23/2014 CHEM 14 3250638 AST 18 U/L 01/23/2014 CHEM 14 5376803 ALT 13 IU/L 01/23/2014 CHEM 14 20271201 BUN 16 MG/DL 01/23/2014 CHEM 14 1488137 ALBUMIN 4.2 GM/DL 01/23/2014 CHEM 14 0518071 CHLORIDE 105 MMOL/L 01/23/2014 CHEM 14 9141866 BILI TOT 0.7 MG/DL 01/23/2014 CHEM 14 7491587 ALK PHOS 61 U/L 01/23/2014 CHEM 14 7646574 SODIUM 138 MMOL/L 01/23/2014 CHEM 14 7050494 CREATINI NE 0.65 MG/DL 01/23/2014 CHEM 14 8539644 CALCIUM 9.5 MG/DL 01/23/2014 CHEM 14 0386732 POTASSIUM 4.4 MMOL/L 01/23/2014 CHEM 14 0871759 PROT TOT 6.8 GM/DL 01/23/2014 CHEM 14 1905684 GLUCOSE 93 MG/DL 01/23/2014 CHEM 14 1477257 BICARB 28 MMOL/L 01/23/2014 CHEM 14 1425777 ANION GAP 5 MEQ/L 01/23/2014 GFR CALC 4042116 GFR AA >60 ML/MIN 01/23/2014 GFR CALC 4173531 GFR NON -AA >60 ML/MIN 01/23/2014 URIC ACID 8816033 URIC A KYLE 5.7 MG/DL 10/13/2011 CHEM 14 0431249 AST 19 U/L 10/13/2011 CHEM 14 2110124 ALT 16 U/L 10/13/2011 CHEM 14 1202358 BUN 21 MG/DL 10/13/2011 CHEM 14 9757867 ALBUMIN 4.2 GM/DL 10/13/2011 CHEM 14 7865555 CHLORIDE 103 MMOL/L 10/13/2011 CHEM 14 3110592 BILI TOT 0.6 MG/DL 10/13/2011 CHEM 14 2232802 ALK PHOS 71 U/L 10/13/2011 CHEM 14 4499220 SODIUM 141 MMOL/L 10/13/2011 CHEM 14 5891046 CREATINI NE 0.65 MG/DL 10/13/2011 CHEM 14 4839665 CALCIUM 9.3 MG/DL 10/13/2011 CHEM 14 0263010 POTASSIUM 4.2 MMOL/L 10/13/2011 CHEM 14 9245625 PROT TOT 6.8 GM/DL 10/13/2011 CHEM 14 3852942 GLUCOSE 69 MG/DL 10/13/2011 CHEM 14 1690058 BICARB 27 MMOL/L 10/13/2011 CHEM 14 4530280 ANION GAP 11 MMOL/L 10/13/2011 CBC 8948753 WBC 6.1 10e9/L 10/13/2011 CBC 0039170 RBC 4.11 10e12/L 10/13/2011 CBC 7799960 HGB 13.3 g/dL 10/13/2011 CBC 9718874 HCT DET 39.6 % 10/13/2011 CBC 7982859 MCV 96.4 fL 10/13/2011 CBC 9027481 MCH 32.4 pg 10/13/2011 CBC 0479375 MCHC 33.6 g/dL 10/13/2011 CBC 0811164 PLT 238 10e9/L 10/13/2011 CBC 1688911 MPV 11.7 fL 10/13/2011 CBC 8494929 DORON % 50.2 % 10/13/2011 CBC 1746275 LY % 35.6 % 10/13/2011 CBC 3610624 MON % 12.7 % 10/13/2011 CBC 2577721 EOS % 1.2 % 10/13/2011 CBC 2830734 BASO % 0.3 % 10/13/2011 CBC 0355171 RDW 12.3 % 10/13/2011 CBC 4969006 ABS DORON 3.06 10e9/L 10/13/2011 CBC 3979678 ABS LYMPH 2.17 10e9/L 10/13/2011 CBC 1592574 ABS MONO 0.77 10e9/L 10/13/2011 CBC 4142440 ABS EOS 0.07 10e9/L 10/13/2011 CBC 3399908 ABS BASO 0.02 10e9/L 10/13/2011 CBC 8624817 RDW-SD 42.3 fL 10/13/2011 GFR CALC 5895627 GFR AA >60 ML/MIN 10/13/2011 GFR CALC 5354069 GFR NON -AA >60 ML/MIN 10/13/2011 ESR 4270932 ESR 14 MM/HR 10/13/2011 Review of Systems [...] masses 02/07/2013 None Full Exam - General 1995 Respiratory respiratory effort/rhythm Overall: no retractions 02/07/2013 [...] hepatosplenomegaly 10/31/2011 None Full Exam - General 1995 Abdomen liver and spleen exam Overall: no [...] SY CPT-4: G8553 01/24/2012 ROUTINE VENIPUNCTURE CPT-4: 71325 10/13/2011 Vital Signs Date Vital 07/12/2018 Blood Pressure 1: 126/68 Code: 8480-6 BMI: 28.4 Code: 54937-9 Heart Rate 1: 71 bpm Height: 5' SpO2: 97% Weight: 148 lbs 12/14/2017 Blood Pressure 1: 138/80 Code: 8480-6 BMI: 28.8 Code: 45286-6 Heart Rate 1: 73 bpm Height: 5' SpO2: 98% Weight: 150 lbs 12/06/2016 Blood Pressure 1: 146/82 Code: 8480-6 BMI: 26.8 Code: 83899-6 Heart Rate 1: 58 bpm Height: 5' [...] 1: 118/74 Code: 8480-6 BMI: 25.7 Code: 33953-3 Heart Rate 1: 64 bpm Height: 5' SpO2: 98% Weight: 134 lbs 10/02/2014 Blood Pressure 1: 136/88 Code: 8480-6 BMI: 25.9 Code: 69687-8 Heart Rate 1: 68 bpm Height: 5' SpO2: 98% Weight: 135 lbs 01/22/2014 Blood Pressure 1: 122/64 Code: 8480-6 BMI: 25.7 Code: 33964-2 Heart Rate 1: 72 bpm Height: 5' Weight: 134 lbs 02/07/2013 Blood Pressure 1: 140/80 Code: 8480-6 BMI: 23.6 Code: 21255-0 Height: 5' Weight: 123 lbs 02/16/2012 Blood Pressure 1: 102/68 Code: 8480-6 Heart Rate 1: 68 bpm Respiratory Rate: 18 bpm Weight: 131 lbs 01/24/2012 Blood Pressure 1: 120/72 Code: 8480-6 Heart Rate 1: 72 bpm Respiratory Rate: 16 bpm Weight: 133 lbs 10/31/2011 Blood Pressure 1: 136/84 Code: 8480-6 BMI: 23.2 Code: 12908-3 Heart Rate 1: 74 bpm Height: 5'2" Respiratory Rate: 16 bpm Weight: 127 lbs 10/13/2011 Blood Pressure 1: 138/84 Code: 8480-6 BMI: 23.2 Code: 60420-9 Heart Rate 1: 80 bpm Height: 5'2" Respiratory Rate: 16 bpm Weight: 127 lbs Functional Status No Functional Status data History of Present Illness Symptom Name Status Resu lt Effective Date Notes Onset and Resolution o ngoing 07/12/2018 None Location in the [facility] e of in the lower back area [...] Quality blee ding 02/07/2013 None hemorrhoids Quality weight loss 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 P ATIENT, LEVEL III Diagnosis: Low back pain[ICD10: M54.5] Jennifer Walker MD, [facility] CPT- 4: 35025 07/12/2018 ([id number]) 51255 EST. P ATIENT, LEVEL IV Diagnosis: Paroxysmal atrial fibrillation[ICD10: I48.0] Diagnosis: Abnormal weight gain[ICD10: R63.5] Diagnosis: Irritable bowel syndrome with diarrhea[ICD10: K58.0] Jennifer Walker MD, [facility] CPT-4: 54308 12/14/2017 ([id number]) 45427 EST. P ATIENT, LEVEL III Diagnosis: Paroxysmal atrial fibrillation[ICD10: I48.0] Jennifer Walker MD, [facility] CPT-4: 69347 12/06/2016 ([id number]) 21962 EST. P ATIENT, LEVEL IV Diagnosis: Paroxysmal atrial fibrillation[ICD10: I48.0] Diagnosis: Pneumonia, unspecified organism[ICD10: J18.9] Jennifer Walker MD, [facility] CPT-4: 78739 11/08/2016 ([id number]) 67176 EST. P ATIENT, LEVEL III Diagnosis: Cough[ICD10: R05] Diagnosis: Pneumonia, unspecified organism[ICD10: J18.9] Jennifer Walker MD, [facility] CPT-4: 78804 11/01/2016 ([id number]) 17785 EST. P ATIENT, LEVEL III Diagnosis: Generalized anxiety disorder[ICD10: F41.1] Jennifer Walker MD, [facility] CPT-4: 70127 11/05/2015 ([id number]) 66743 EST. P ATIENT, LEVEL III Diagnosis: Rectal bleeding[ICD9: 569.3] Jennifer Walker MD, [facility] CPT- 4: 95006 10/02/2014 ([id number]) 18616 EST. P ATIENT, LEVEL III Diagnosis: Anxiety, generalized[ICD9: 300.02] Diagnosis: Depression[ICD9: 311] [facility] CPT-4: 67544 01/22/2014 ([id number]) 27102 EST. P ATIENT, LEVEL III Diagnosis: Bloody feces[ICD9: 578.1] [facility] CPT-4: 36936 02/07/2013 ([id number]) 12399 EST. P ATIENT, LEVEL III Diagnosis: OSTEOARTH NOS-UNSPEC[ICD9: 715.90] Diagnosis: MUSCLE/LIGAMENT DIS NEC[ICD9: 728.89] [facility] CPT-4: 05421 02/16/2012 ([id number]) 54478 EST. P ATIENT, LEVEL III Diagnosis: Iliotibial band syndrome[ICD9: 728.89] Diagnosis: OSTEOARTH NOS-UNSPEC[ICD9: 715.90] Diagnosis: PAIN IN LIMB[ICD9: 729.5] [facility] CPT-4: 17492 01/24/2012 ([id number]) 10767 EST. [facility]: OSTEOARTH NOS-UNSPEC[ICD9: 715.90] Diagnosis: ROUTINE GYNE EXAM[ICD9: V72.31] [facility] CPT-4: 84603 10/31/2011 OFFICE VISIT, NEW - LEVEL 4 Diagnosis: Osteoarthritis[ICD9: 715.90] Diagnosis: INSOMNIA NOS[ICD9: 780.52] Diagnosis: PAIN IN LIMB[ICD9: 729.5] [facility] CPT-4: 75070 10/13/2011 Plan of Care Planned Activity Notes C odes Status Date Visit Plan: Low back pain- patient' s pain is actually improved -recommend MRI -refer to Dr Crouch if needed- okay to use tylenol for pain -also discussed PT if indicated-patient verbalized understanding of plan. 07/12/2018 Appointment: Jennifer Vera WPtel: [address] [place], [place] [phone] (30 min) Complex 07/12/2018 Patient Education: Patient Medication Summary Completed 07/12/2018 Patient Education: Back Pain Completed 07/12/2018 Care Plan: MRI LUMBAR SPINE W/O DYE [facility] : 77732-5 Pending 07/12/2018 Patient Education: Patient Medication Summary [...] TSH 12/14/2017 Appointment: Jennifer Vera WPtel: [phone] (15 min) Moderate 12/14/2017 Patient Education: Patient Medication Summary Completed 12/14/2017 Care Plan: Cbc With Differential Pending 12/14/2017 Visit Plan: Afib-converted to NSR b y Dr Solorzano-on xarelto- instructed patient to report if they start to feel as if their heart rate is becoming uncontrolled or other symptoms develop. Patient verbalized understan zayra. 12/06/2016 Appointment: Jennifer Vera WPtel: [address] [place] [phone] (15 min) Moderate 12/06/2016 Patient Education: Patient Medication Summary Completed 12/06/2016 Visit Plan: Afib-ordered EKG to con firm-increase cartia for heart rate control and start eliquis 5mg twice daily-follow up with Dr Solorzano Pneumonia-finished abx-no further treatment indicated 11/08/2016 Appointment: Jennifer Vera WPtel: [phone] (30 min) Complex 11/08/2016 Patient Education: Patient Medication Summary Completed 11/08/2016 Visit Plan: Pneumonia-on abx per ur gent-continue current treatment and follow up in 1 week to ensure resolution of symptoms. Call sooner for worsening or new symptoms. Patient verbalized understanding of plan. 11/01/2016 Appointment: Jennifer Vera WPtel: [address] [place], [place] [phone] (15 min) Moderate 11/01/2016 Patient Education: Patient [...] medications. 11/05/2015 Appointment: Jennifer Vera WPtel[phone] (15 min) Moderate 11/05/2015 Patient Education: Patient [...] panic attacks 01/22/2014 Appointment: Kim Walker WPtel: [address] [place], [place] [phone] Sick 01/22/2014 Patient Education: Patient Medication Summary Completed 01/22/2014 Care Plan: COMPLETE CBC AUTOMATED LOINC : 86393-9 Ordered 01/22/2014 Visit Plan: Blood in stool [...] up. 02/07/2013 Appointment: Kim Walker WPtel: [facility] Follow up 02/07/2013 Patient Education: Patient Medication Summary Completed 02/07/2013 Visit Plan: Arthritis- occasionally uncontrolled symptoms- recommend pt to take antiinflammatory as directed for pain control. Use tylenol for break through pain symptoms.Start mobic daily Leg length discrepency - recommended pt to place: dr gilliland inserts- 2 in the left shoe 02/16/2012 Appointment: Kim Walker WPtel: [facility] Follow up 02/16/2012 Patient Education: Patient Medication [...] re-eval. 01/24/2012 Appointment: Kim Walker WPtel: [facility] Other 01/24/2012 Patient Education: Patient Medication Summary [...] daily. 10/31/2011 Appointment: Kim Walker WPtel: [phone] [facility] [facility] 10/31/2011 Patient Education: Patient Medication [...] time insomnia. 10/13/2011 Appointment: Kim Walker WPtel: [phone] [facility] New Patient 10/13/2011 Patient Education: Patient Medication [...]
--- OUTSIDE RECORDS SUMMARY | 2019-12-04 06:59 | XMS REPORT | CCD ---
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 Name Role Phone PP Unavailable CCM Unavailable Summary Purpose Interface Exchange Insurance Providers Payer name Policy type / Coverage type Covered green party ID Effective Begin Date Effective End Date RACHEL GBA [id number] 2017 Unknown [employer] [id number] Unknown Family history Mother Diagnosis Age At Onset Breast cancer Unknown Brother Diagnosis Age At Onset Arthritis Unknown Grandson Diagnosis Age At Onset Diabetes Unknown Social History Social History Element Codes Description Effective Dates Tobacco history SNOMED CT: 5164443 Former smoker quit 03/201301/22/2014 Employment Unknown Retir [...] Date Stop Date Sta tus Fill Instructions Synthroid 75 mcg tablet RxNorm: 325228 TAKE 1 TABLET BY MOUTH ONCE DAILY 10/17/2018 No Stop Date Active Prozac 40 mg capsule RxNorm: 237197 TAKE 1 CAPSULE BY MOUTH ONCE DAILY 10/08/2018 No Stop Date Active Xanax 0.25 mg tablet RxNorm: 341219 Tablet(s) TAKE 1/2 TO 1 (ONE-HALF TO ONE ) TABLET BY MOUTH 4 TIMES DAILY NEEDED 08/28/2018 No Stop Date Active Cartia XT 180 mg cap clifford,extended release RxNorm: 355311 TAKE 1 CAPSULE BY ALEXANDER TH AT BEDTIME 07/30/2018 No Stop Date Active Prozac 40 mg capsule RxNorm: 204715 TAKE ONE CAPSULE BY MOUTH ONCE DAILY 06/08/2018 10/07/2018 In active Xanax 0.25 mg tablet RxNorm: 081114 TAKE 1/2 TO 1 (ONE-HALF TO ONE) TABLET B Y MOUTH 4 TIMES DAILY NEEDED 05/18/2018 No Stop Date Active Synthroid 75 mcg tablet RxNorm: 242414 1 Tablet(s) PO daily 03/29/2018 09/24/2018 Inactive will call for refill when ready Xanax 0.25 mg tablet RxNorm: 345244 1/2 - 1 Tablet(s) PO QID as needed anxie ty attack 01/24/2018 05/18/2018 Inactive Synthroid 25 mcg tablet RxNorm: 200405 1 Tablet(s) PO daily 12/15/2017 03/28/2018 Inactive take on an empty stomach by itself Flagyl 500 mg tablet RxNorm: 922089 1 Tablet(s) PO TID 12/15/2017 12/14/2017 Inactive Flagyl 500 mg tablet RxNorm: 600159 1 Tablet(s) PO TID 12/15/2017 12/24/2017 Inactive Synthroid 25 mcg tablet RxNorm: 551028 1 Tablet(s) PO daily 12/15/2017 12/14/2017 Inactive Fish Oil 360 mg-1,20 0 mg capsule,delayed release RxNorm: 1 Capsule(s) PO BID 12/14/2017 No Stop Date Active Xifaxan 550 mg tablet RxNorm: 863511 1 Tablet(s) PO TID 12/14/2017 12/27/2017 Inactive Xanax 0.25 mg tablet RxNorm: 663829 1/2 - 1 Tablet(s) PO QID as needed anxie ty attack 12/01/2017 07/11/2018 Inactive Xanax 0.25 mg tablet RxNorm: 825592 1/2 - 1 Tablet(s) PO QID as needed anxie ty attack 08/22/2017 08/28/2017 Inactive Cartia XT 180 mg cap clifford,extended release RxNorm: 180488 Capsule(s) TAKE ONE C APSULE BY MOUTH ONCE DAILY AT BEDTIME 08/04/2017 07/29/2018 Inactive Prozac 40 mg capsule RxNorm: 426820 Capsule(s) TAKE ONE CAPSULE BY MOUTH ONC E DAILY 06/08/2017 06/07/2018 Inactive Prozac 40 mg capsule RxNorm: 526117 TAKE ONE CAPSULE BY MOUTH ONCE DAILY 05/30/2017 06/07/2017 In active Cartia XT 180 mg cap clifford,extended release RxNorm: 802265 TAKE ONE CAPSULE BY M OUTH ONCE DAILY AT BEDTIME 05/08/2017 08/03/2017 Inactive Prozac 40 mg capsule RxNorm: 578805 TAKE ONE CAPSULE BY MOUTH ONCE DAILY 02/03/2017 05/29/2017 In active Eliquis 5 mg tablet RxNorm: 1462393 1 Tablet(s) PO BID 11/09/2016 12/05/2016 Inactive Eliquis 5 mg tablet RxNorm: 0107240 1 Tablet(s) PO BID 11/09/2016 11/08/2016 Inactive Cartia XT 180 mg cap clifford,extended release RxNorm: 308930 1 Capsule(s) PO QHS 11/08/2016 05/06/2017 In active Prozac 40 mg capsule RxNorm: 901338 TAKE ONE CAPSULE BY MOUTH ONCE DAILY 11/07/2016 02/02/2017 In active Phenergan with Codei ne Syrup RxNorm: 2.5 Milliliter(s) PO QHS as needed 10/28/2016 07/11/2018 In active levofloxacin 500 mg tablet RxNorm: 653192 1 Tablet(s) PO daily 10/28/2016 11/06/2016 Inactive Prozac 40 mg capsule RxNorm: 891035 TAKE ONE CAPSULE BY MOUTH ONCE DAILY 08/01/2016 10/29/2016 In active Prozac 40 mg capsule RxNorm: 819861 1 Capsule(s) PO daily 11/05/2015 05/02/2016 Inactive [SAVINGS FOR UNINSURED PATIENTS -- BIN:0 64210, PCN: ASPROD1, Group: [id number], ID# [id number], Process claim through [employer], for questions: . THIS IS NOT INSURANCE.] Xanax 0.25 mg tablet RxNorm: 582616 1/2 - 1 Tablet(s) PO QID as needed anxie ty attack 11/02/2015 01/29/2016 Inactive Prozac 40 mg capsule RxNorm: 126811 Capsule(s) TAKE ONE CAPSULE BY MOUTH ONC E DAILY 08/12/2015 08/11/2015 Inactive NEEDS APPT Prozac 40 mg capsule RxNorm: 264856 TAKE ONE CAPSULE BY MOUTH ONCE DAILY 08/12/2015 07/31/2016 In active hydrocortisone aceta te 25 mg rectal suppository RxNorm: 6485598 1 Suppository RTL QH S 10/02/2014 07/11/2018 Inactive daily HS x 1 week, then twice weekly the n as needed Prozac 40 mg capsule RxNorm: 075680 TAKE ONE CAPSULE BY MOUTH ONCE DAILY 07/31/2014 01/26/2015 In active Prozac 40 mg capsule RxNorm: 589763 1 Capsule(s) PO daily 07/30/2014 02/24/2015 Inactive [SAVINGS FOR NON-COVERED DRUGS -- BIN:00 3585, PCN: ASPROD1, Group: XXXXX, ID# [id number], Questions: . THIS IS NOT INSURANCE.] Xanax 0.25 mg tablet RxNorm: 393580 1/2 - 1 Tablet(s) PO QID as needed anxie ty attack 01/22/2014 03/22/2014 Inactive Prozac 40 mg capsule RxNorm: 438044 1 Capsule(s) PO daily 01/22/2014 07/20/2014 Inactive [SAVINGS FOR UNINSURED PATIENTS -- BIN:0 56230, PCN: ASPROD1, Group: [id number], ID# [id number], Process claim through [employer], for questions: . THIS IS NOT INSURANCE.] Prozac 20 mg capsule RxNorm: 900036 1 Capsule(s) PO daily 08/08/2013 01/21/2014 Inactive Prozac 20 mg capsule RxNorm: 096442 1 Capsule(s) PO daily 07/19/2013 08/07/2013 Inactive Prozac 20 mg capsule RxNorm: 317656 1 Capsule(s) PO daily 02/12/2013 07/18/2013 Inactive Influenza Virus Vacc ine 0.5 mL RxNorm: IM 02/16/2012 02/16/2012 Inactive meloxicam 7.5 mg tablet RxNorm: 224436 1 Tablet(s) PO BID ONE PILL IN MORNING, IF PAIN IS UNCONTROLLED, MAY TAKE ONE EXTRA PILL IN THe PM do not take with ibuprofen or aleve 01/24/2012 02/15/2012 Inactive Aspirin Low Dose 81 mg tablet,delayed release RxNorm: 717144 1 Tablet(s) PO daily No Start Date Active Tylenol 500 mg RxNorm: 1 Tablet(s) PO BID No Start Date Active Repatha SureClick 14 0 mg/mL subcutaneous pen injector RxNorm: 0948713 1 Milliliter(s) SQ Q2 weeks No Start Date Active amiodarone 200 mg ta blet RxNorm: 303475 1/2 Tablet(s) PO daily No Start Date Active melatonin 10 mg tablet RxNorm: 0474707 1 Tablet(s) PO QHS No Start Date Active pantoprazole 40 mg t ablet,delayed release RxNorm: 227749 1 Tablet(s) PO daily No Start Date Active isosorbide mononitra te ER 30 mg tablet,extended release 24 hr RxNorm: 247755 1 Tablet(s) PO daily No Start Date Active melatonin 3 mg Tab RxNorm: 543381 2 Tablet(s) PO QHS No Start Date 12/13/2017 Inactive Xarelto 20 mg tablet RxNorm: 1575154 1 Tablet(s) PO QPM No Start Date 12/13/2017 Inactive Tylenol 8 Hour 650 m g tablet,extended release RxNorm: 3655701 1 Tablet(s) PO BID No Start Date 07/12/2018 Inactive Calcium 600 + D(3) 6 00 mg (1,500 mg)-400 unit Tab RxNorm: 115990 1 Tablet(s) PO QPM No Start Date 12/13/2017 Inactive prasugrel 10 mg tablet RxNorm: 260370 1 Tablet(s) PO daily No Start Date 07/11/2018 Inactive Fish Oil 360 mg-1,20 0 mg capsule,delayed release RxNorm: 1 Capsule(s) PO daily No Start Date 12/13/2017 Inactive PreserVision AREDS 2 oral RxNorm: 5789716 oral No Start Date 07/11/2018 Inactive Prozac 20 mg capsule RxNorm: 805167 1 Capsule(s) PO daily No Start Date 02/11/2013 Inactive Breo Ellipta inhalation RxNorm: 2893606 inhalation No Start Date 12/13/2017 Inactive fenofibrate nanocrys tallized 145 mg tablet RxNorm: 445287 Tablet(s) PO daily No Start Date 10/31/2016 Inactive Centrum Silver Ultra Women's Tab RxNorm: 1 Tablet(s) PO QHS No Start Date 10/31/2016 Inactive Cartia XT 120 mg cap clifford,extended release RxNorm: 302649 1 Capsule(s) PO QHS No Start Date [...] Item Item Code Result Date Free T4 Jge472 FREE T4 1.12 ng/dL 09/28/2018 Tsh Ord6 TSH (3rd IS) 3.54 uIU/mL 09/28/2018 Tsh Ord6 TSH (3rd IS) 4.90 uIU/mL 06/25/2018 Free T4 Bhj486 FREE T4 1.15 ng/dL 06/25/2018 Free T4 Vow101 FREE T4 0.52 ng/dL 03/22/2018 Tsh Ord6 [...] 33.4 pg 12/15/2017 Cbc With Differential Ord2 Carver% 17.3 % 12/15/2017 Cbc With Differential Ord2 [...] 0.78 K/ul 12/15/2017 Cbc With Differential Ord2 Carver ABS# 0.4 K/ul 12/15/2017 Cbc With Differential Ord2 Eos ABS# 0.1 K/ul 12/15/2017 Cbc With Differential Ord2 Baso ABS# 0.0 K/ul 12/15/2017 Free T4 Jxt698 FREE T4 0.34 ng/dL 12/15/2017 Test(s) Not Perfromed [id number] Test(s) Not Performed Test(s) Not Performed. See Below: 12/14/2017 Test(s) Not Perfromed [id number] TEST NAME CBC 12/14/2017 Test(s) Not Perfromed [id number] Rejection Reason No Suitable Specimen Receive d 12/14/2017 Test(s) Not Perfromed [id number] COMMENT Grace notified for redraw 12/14/2017 Test(s) Not Perfromed [id number] Monitor Tech Wale Beckwitht 12/14/2017 Tsh Ord6 TSH (3rd IS) 48.79 uIU/mL 12/14/2017 Comp Metabolic Epi317 NA 137 mEq/L 12/14/2017 Comp Metabolic Uvo116 K 4.3 mEq/L 12/14/2017 Comp Metabolic Dad859 CL 101 mEq/L 12/14/2017 Comp Metabolic Nmo629 CO2 29.0 mEq/L 12/14/2017 Comp Metabolic Sua562 AN ION GAP 11 12/14/2017 Comp Metabolic Bdg956 GL UCOSE 81 mg/dL 12/14/2017 Comp Metabolic Vkm238 Cr eat 0.7 mg/dL 12/14/2017 Comp Metabolic Sfg508 eG FR 86 ml/min/1.73m2 12/14 Comp Metabolic Exe773 BUN 14 mg/dL 12/14/2017 Comp Metabolic Efg591 B/ C Ratio 19.7 Ratio 12/14/2017 Comp Metabolic Whr754 CA LCIUM 9.2 mg/dL 12/14/2017 Comp Metabolic Hof541 AL K PHOS 112 U/L 12/14/2017 Comp Metabolic Uga148 T(SGOT) 25 U/L 12/14/2017 Comp Metabolic Bjb976 AL T(SGPT) 20 U/L 12/14/2017 Comp Metabolic Zqd394 BI LI T 0.8 mg/dL 12/14/2017 Comp Metabolic Vti601 AL BUMIN 4.1 g/dL 12/14/2017 Comp Metabolic Kgm978 TP RO 6.9 g/dL 12/14/2017 Comp Metabolic Fph340 GL OB 2.9 g/dL 12/14/2017 Comp Metabolic Mpd209 A/ G Ratio 1.4 Ratio 12/14/2017 Comp Metabolic Nif560 Os mo 273 mOsmo 12/14/2017 LIPID GRP HDL TE ST 70 MG/DL 01/23/2014 LIPID GRP TRIG 134 MG/DL 01/23/2014 LIPID GRP TEST L DL 117 MG/DL 01/23/2014 LIPID GRP CHOL 214 MG/DL 01/23/2014 LIPID GRP RCHOL/ HDL 3.06 RATIO 01/23/2014 LIPID GRP NON-HD L CH 144 MG/DL 01/23/2014 TSH 8274139 TSH 1.784 uIU/ML 01/23/2014 CBC 4058390 WBC 4.7 10e9/L 01/23/2014 CBC 9886856 RBC 4.10 10e12/L 01/23/2014 CBC 0256712 HGB 13.3 g/dL 01/23/2014 CBC 2859508 HCT DET 39.2 % 01/23/2014 CBC 2477874 MCV 95.6 fL 01/23/2014 CBC 3488512 MCH 32.4 pg 01/23/2014 CBC 3746775 MCHC 33.9 g/dL 01/23/2014 CBC 4241999 PLT 232 10e9/L 01/23/2014 CBC 3629444 MPV 10.9 fL 01/23/2014 CBC 2228819 DORON % 57.4 % 01/23/2014 CBC 6166565 LY % 28.0 % 01/23/2014 CBC 3132242 MON % 12.9 % 01/23/2014 CBC 2395599 EOS % 1.3 % 01/23/2014 CBC 5884285 BASO % 0.4 % 01/23/2014 CBC 5463447 RDW 12.1 % 01/23/2014 CBC 0600863 ABS DORON 2.70 10e9/L 01/23/2014 CBC 5532318 ABS LYMPH 1.32 10e9/L 01/23/2014 CBC 5608389 ABS MONO 0.61 10e9/L 01/23/2014 CBC 0555905 ABS EOS 0.06 10e9/L 01/23/2014 CBC 8045837 ABS BASO 0.02 10e9/L 01/23/2014 CBC 5534973 RDW-SD 41.2 fL 01/23/2014 CHEM 14 8263435 AST 18 U/L 01/23/2014 CHEM 14 9183461 ALT 13 IU/L 01/23/2014 CHEM 14 5744637 BUN 16 MG/DL 01/23/2014 CHEM 14 8609925 ALBUMIN 4.2 GM/DL 01/23/2014 CHEM 14 0703792 CHLORIDE 105 MMOL/L 01/23/2014 CHEM 14 9146011 BILI TOT 0.7 MG/DL 01/23/2014 CHEM 14 7200491 ALK PHOS 61 U/L 01/23/2014 CHEM 14 3070052 SODIUM 138 MMOL/L 01/23/2014 CHEM 14 5529831 CREATINI NE 0.65 MG/DL 01/23/2014 CHEM 14 4689032 CALCIUM 9.5 MG/DL 01/23/2014 CHEM 14 6218093 POTASSIUM 4.4 MMOL/L 01/23/2014 CHEM 14 4323347 PROT TOT 6.8 GM/DL 01/23/2014 CHEM 14 5529720 GLUCOSE 93 MG/DL 01/23/2014 CHEM 14 8057529 BICARB 28 MMOL/L 01/23/2014 CHEM 14 2413271 ANION GAP 5 MEQ/L 01/23/2014 GFR CALC 4219972 GFR AA >60 ML/MIN 01/23/2014 GFR CALC 2999429 GFR NON -AA >60 ML/MIN 01/23/2014 URIC ACID 1069241 URIC A KYLE 5.7 MG/DL 10/13/2011 CHEM 14 8753768 AST 19 U/L 10/13/2011 CHEM 14 5020644 ALT 16 U/L 10/13/2011 CHEM 14 0382005 BUN 21 MG/DL 10/13/2011 CHEM 14 9434678 ALBUMIN 4.2 GM/DL 10/13/2011 CHEM 14 7755253 CHLORIDE 103 MMOL/L 10/13/2011 CHEM 14 6681204 BILI TOT 0.6 MG/DL 10/13/2011 CHEM 14 7683130 ALK PHOS 71 U/L 10/13/2011 CHEM 14 5320678 SODIUM 141 MMOL/L 10/13/2011 CHEM 14 6930575 CREATINI NE 0.65 MG/DL 10/13/2011 CHEM 14 3255401 CALCIUM 9.3 MG/DL 10/13/2011 CHEM 14 4163207 POTASSIUM 4.2 MMOL/L 10/13/2011 CHEM 14 6690733 PROT TOT 6.8 GM/DL 10/13/2011 CHEM 14 2850131 GLUCOSE 69 MG/DL 10/13/2011 CHEM 14 1335687 BICARB 27 MMOL/L 10/13/2011 CHEM 14 9465800 ANION GAP 11 MMOL/L 10/13/2011 CBC 5640309 WBC 6.1 10e9/L 10/13/2011 CBC 5847337 RBC 4.11 10e12/L 10/13/2011 CBC 6355384 HGB 13.3 g/dL 10/13/2011 CBC 7004357 HCT DET 39.6 % 10/13/2011 CBC 3526022 MCV 96.4 fL 10/13/2011 CBC 9488370 MCH 32.4 pg 10/13/2011 CBC 2669925 MCHC 33.6 g/dL 10/13/2011 CBC 0965504 PLT 238 10e9/L 10/13/2011 CBC 8654684 MPV 11.7 fL 10/13/2011 CBC 7205938 DORON % 50.2 % 10/13/2011 CBC 3325105 LY % 35.6 % 10/13/2011 CBC 4974072 MON % 12.7 % 10/13/2011 CBC 6838206 EOS % 1.2 % 10/13/2011 CBC 9493987 BASO % 0.3 % 10/13/2011 CBC 1364719 RDW 12.3 % 10/13/2011 CBC 0902230 ABS DORON 3.06 10e9/L 10/13/2011 CBC 8954967 ABS LYMPH 2.17 10e9/L 10/13/2011 CBC 6632157 ABS MONO 0.77 10e9/L 10/13/2011 CBC 9276691 ABS EOS 0.07 10e9/L 10/13/2011 CBC 7935610 ABS BASO 0.02 10e9/L 10/13/2011 CBC 6278922 RDW-SD 42.3 fL 10/13/2011 GFR CALC 5859525 GFR AA >60 ML/MIN 10/13/2011 GFR CALC 3545904 GFR NON -AA >60 ML/MIN 10/13/2011 ESR 6293843 ESR 14 MM/HR 10/13/2011 Review of Systems [...] hepatosplenomegaly 02/07/2013 None Full Exam - General 1995 [...] accomodation 02/16/2012 None Full Exam - General 1995 [...] SY CPT-4: G8553 01/24/2012 ROUTINE VENIPUNCTURE CPT-4: 26080 10/13/2011 Vital Signs Date Vital 07/12/2018 Blood Pressure 1: 126/68 Code: 8480-6 BMI: 28.4 Code: 53424-4 Heart Rate 1: 71 bpm Height: 5' SpO2: 97% Weight: 148 lbs 12/14/2017 Blood Pressure 1: 138/80 Code: 8480-6 BMI: 28.8 Code: 27571-2 Heart Rate 1: 73 bpm Height: 5' SpO2: 98% Weight: 150 lbs 12/06/2016 Blood Pressure 1: 146/82 Code: 8480-6 BMI: 26.8 Code: 64288-0 Heart Rate 1: 58 bpm Height: 5' [...] 1: 118/74 Code: 8480-6 BMI: 25.7 Code: 49097-1 Heart Rate 1: 64 bpm Height: 5' SpO2: 98% Weight: 134 lbs 10/02/2014 Blood Pressure 1: 136/88 Code: 8480-6 BMI: 25.9 Code: 24202-2 Heart Rate 1: 68 bpm Height: 5' SpO2: 98% Weight: 135 lbs 01/22/2014 Blood Pressure 1: 122/64 Code: 8480-6 BMI: 25.7 Code: 36416-3 Heart Rate 1: 72 bpm Height: 5' Weight: 134 lbs 02/07/2013 Blood Pressure 1: 140/80 Code: 8480-6 BMI: 23.6 Code: 25303-7 Height: 5' Weight: 123 lbs 02/16/2012 Blood Pressure 1: 102/68 Code: 8480-6 Heart Rate 1: 68 bpm Respiratory Rate: 18 bpm Weight: 131 lbs 01/24/2012 Blood Pressure 1: 120/72 Code: 8480-6 Heart Rate 1: 72 bpm Respiratory Rate: 16 bpm Weight: 133 lbs 10/31/2011 Blood Pressure 1: 136/84 Code: 8480-6 BMI: 23.2 Code: 78687-9 Heart Rate 1: 74 bpm Height: 5'2" Respiratory Rate: 16 bpm Weight: 127 lbs 10/13/2011 Blood Pressure 1: 138/84 Code: 8480-6 BMI: 23.2 Code: 26685-8 Heart Rate 1: 80 bpm Height: 5'2" Respiratory Rate: 16 bpm Weight: 127 lbs Functional Status No Functional Status data History of Present Illness Symptom Name Status Resu lt Effective Date Notes Onset and Resolution o ngoing 07/12/2018 None Location in the [facility] e of in the lower back [...] activity 12/06/2016 cardioversion cough Location in the [facility] 11/08/2016 None cough Quality acute 11/08/2016 None [...] 11/08/2016 None Hospital Follow Up _ [facility] 11/08/2016 None Hospital Follow Up Quality acute illness 11/08/2016 None Hospital Follow Up Pertinent Findings Other: cough 11/08/2016 None Hospital Follow Up _ inf ection 11/01/2016 None Hospital Follow Up _ [facility] 11/01/2016 None Hospital Follow [...] Quality blee ding 02/07/2013 None hemorrhoids 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 P ATIENT, LEVEL III Diagnosis: Low back pain[ICD10: M54.5] Jennifer Walker MD, [facility] CPT- 4: 67333 07/12/2018 ([id number]) 57934 EST. P ATIENT, LEVEL IV Diagnosis: Paroxysmal atrial fibrillation[ICD10: I48.0] Diagnosis: Abnormal weight gain[ICD10: R63.5] Diagnosis: Irritable bowel syndrome with diarrhea[ICD10: K58.0] Jennifer Walker MD, [facility] CPT-4: 49041 12/14/2017 ([id number]) 85362 EST. P ATIENT, LEVEL III Diagnosis: Paroxysmal atrial fibrillation[ICD10: I48.0] Jennifer Walker MD, [facility] CPT-4: 30680 12/06/2016 ([id number]) 69722 EST. P ATIENT, LEVEL IV Diagnosis: Paroxysmal atrial fibrillation[ICD10: I48.0] Diagnosis: Pneumonia, unspecified organism[ICD10: J18.9] Jennifer Walker MD, [facility] CPT-4: 31899 11/08/2016 ([id number]) 12712 EST. P ATIENT, LEVEL III Diagnosis: Cough[ICD10: R05] Diagnosis: Pneumonia, unspecified organism[ICD10: J18.9] Jennifer Walker MD, [facility] CPT-4: 79792 11/01/2016 ([id number]) 14140 EST. P ATIENT, LEVEL III Diagnosis: Generalized anxiety disorder[ICD10: F41.1] Jennifer Walker MD, [facility] CPT-4: 62835 11/05/2015 ([id number]) 86331 EST. P ATIENT, LEVEL III Diagnosis: Rectal bleeding[ICD9: 569.3] Jennifer Walker MD, [facility] CPT- 4: 52480 10/02/2014 ([id number]) 93387 EST. P ATIENT, LEVEL III Diagnosis: Anxiety, generalized[ICD9: 300.02] Diagnosis: Depression[ICD9: 311] Kim Walker MD, [facility] CPT-4: 90077 01/22/2014 ([id number]) 60826 EST. P ATIENT, LEVEL III Diagnosis: Bloody feces[ICD9: 578.1] [facility] CPT-4: 34634 02/07/2013 ([id number]) 68467 EST. P ATIENT, LEVEL III Diagnosis: OSTEOARTH NOS-UNSPEC[ICD9: 715.90] Diagnosis: MUSCLE/LIGAMENT DIS NEC[ICD9: 728.89] [facility] CPT-4: 25703 02/16/2012 ([id number]) 39458 EST. P ATIENT, LEVEL III Diagnosis: Iliotibial band syndrome[ICD9: 728.89] Diagnosis: OSTEOARTH NOS-UNSPEC[ICD9: 715.90] Diagnosis: PAIN IN LIMB[ICD9: 729.5] [facility] CPT-4: 19855 01/24/2012 ([id number]) 45331 EST. [facility] Diagnosis: OSTEOARTH NOS-UNSPEC[ICD9: 715.90] Diagnosis: ROUTINE GYNE EXAM[ICD9: V72.31] [facility] CPT-4: 28157 10/31/2011 OFFICE VISIT, NEW - LEVEL 4 Diagnosis: Osteoarthritis[ICD9: 715.90] Diagnosis: INSOMNIA NOS[ICD9: 780.52] Diagnosis: PAIN IN LIMB[ICD9: 729.5] [facility] CPT-4: 16336 10/13/2011 Plan of Care Planned Activity Notes C odes Status Date Visit Plan: Low back pain- patient' s pain is actually improved -recommend MRI -refer to Dr Crouch if needed- okay to use tylenol for pain -also discussed PT if indicated-patient verbalized understanding of plan. 07/12/2018 Appointment: Jennifer Vera WPtel: [address] [place], [place] [phone] (30 min) [facility] 07/12/2018 Patient Education: Patient Medication Summary Completed 07/12/2018 Patient Education: Back Pain Completed 07/12/2018 Care Plan: MRI LUMBAR SPINE W/O DYE LOINC : 80386-7 Pending 07/12/2018 Patient Education: Patient Medication Summary [...] including TSH 12/14/2017 Appointment: Jennifer Vera WPtel: [address] [place], [place] [phone] (15 min) Moderate 12/14/2017 Patient Education: Patient Medication Summary Completed 12/14/2017 Care Plan: Cbc With Differential Pending 12/14/2017 Visit Plan: Afib-converted to NSR b y Dr Solorzano-on xarelto- instructed patient to report if they start to feel as if their heart rate is becoming uncontrolled or other symptoms develop. Patient verbalized understan zayra. 12/06/2016 Appointment: Jennifer Vera WPtel: [facility]9 [phone] (15 min) Moderate 12/06/2016 Patient Education: Patient Medication Summary Completed 12/06/2016 Visit Plan: Afib-ordered EKG to con firm-increase cartia for heart rate control and start eliquis 5mg twice daily-follow up with Dr Solorzano Pneumonia-finished abx-no further treatment indicated 11/08/2016 Appointment: Jennifer Vera WPtel: [facility]2 [phone] (30 min) Complex 11/08/2016 Patient Education: Patient Medication Summary Completed 11/08/2016 Visit Plan: Pneumonia-on abx per ur gent-continue current treatment and follow up in 1 week to ensure resolution of symptoms. Call sooner for worsening or new symptoms. Patient verbalized understanding of plan. 11/01/2016 Appointment: Jennifer Vera WPtel: [facility]1 [phone] (15 min) Moderate 11/01/2016 Patient Education: Patient [...] current medications. 11/05/2015 Appointment: Jennifer Vera WPtel: [facility]9 [phone] (15 min) Moderate 11/05/2015 Patient Education: Patient [...] panic attacks 01/22/2014 Appointment: Kim Walker WPtel: [address] [place], [place] [phone] Sick 01/22/2014 Patient Education: Patient Medication Summary Completed 01/22/2014 Care Plan: COMPLETE CBC AUTOMATED LOINC : 25655-2 Ordered 01/22/2014 Visit Plan: Blood in stool [...] work up. 02/07/2013 Appointment: Kim Walker WPtel: [facility]2 [facility] Follow up 02/07/2013 Patient Education: Patient Medication Summary Completed 02/07/2013 Visit Plan: Arthritis- occasionally uncontrolled symptoms- recommend pt to take antiinflammatory as directed for pain control. Use tylenol for break through pain symptoms.Start mobic daily Leg length discrepency - recommended pt to place: dr gilliland inserts- 2 in the left shoe 02/16/2012 Appointment: Kim Walker WPtel: [facility]4 [facility] Follow up 02/16/2012 Patient Education: Patient [...] for re-eval. 01/24/2012 Appointment: Kim Walker WPtel: [facility]5 [facility] Other 01/24/2012 Patient Education: Patient Medication Summary [...] times daily. 10/31/2011 Appointment: Kim Walker WPtel: [facility]9 [facility] [facility] 10/31/2011 Patient Education: Patient [...] time insomnia. 10/13/2011 Appointment: Kim Walker WPtel: [address] [place], [place] [phone] New Patient 10/13/2011 Patient Education: Patient Medication [...] Dr Lara for follow up Plan: ([id number]) FLULABarbara AL VACC, 3 YRS & >, IM [...]
[2019-12-04] MEDS ORDERED: LIDOCAINE 1% INJ 20 ML 20 ML VIAL ONE (07:00)
[2019-12-04] MEDS ORDERED: NS IV 1000 ML 1,000 ML ONE (07:00)
[2019-12-04] MEDS ORDERED: HEParin (CATH LAB) 2,000 ML IV ONE (07:00)
--- OUTSIDE RECORDS SUMMARY | 2019-12-04 07:00 | XMS REPORT | CCD ---
Author Author Linda Walker Organization Kim Walker MD, [facility] Address [address] [place] [address] Phone Care Team Providers Care Director Clinical Data Name Role Phone PP Unavailable CCM Unavailable Summary Purpose Interface Exchange Insurance Providers Payer name Policy type / Coverage type Covered constitution party ID Effective Begin Date Effective End Date RACHEL GBA [id number] 2017 Unknown [employer] [id number] Unknown Family history Mother Diagnosis Age At Onset Breast cancer Unknown Brother Diagnosis Age At Onset Arthritis Unknown Grandson Diagnosis Age At Onset Diabetes Unknown Social History Social History Element Codes Description Effective Dates Tobacco history SNOMED CT: 1996405 Former smoker quit 03/201301/22/2014 Employment Unknown Retir [...] Date Stop Date Sta tus Fill Instructions Prozac 40 mg capsule RxNorm: 070842 TAKE 1 CAPSULE BY MOUTH ONCE DAILY 10/08/2018 No Stop Date Active Xanax 0.25 mg tablet RxNorm: 087561 Tablet(s) TAKE 1/2 TO 1 (ONE-HALF TO ONE ) TABLET BY MOUTH 4 TIMES DAILY NEEDED 08/28/2018 No Stop Date Active Cartia XT 180 mg cap clifford,extended release RxNorm: 915576 TAKE 1 CAPSULE BY ALEXANDER TH AT BEDTIME 07/30/2018 No Stop Date Active Prozac 40 mg capsule RxNorm: 437166 TAKE ONE CAPSULE BY MOUTH ONCE DAILY 06/08/2018 10/07/2018 In active Xanax 0.25 mg tablet RxNorm: 386078 TAKE 1/2 TO 1 (ONE-HALF TO ONE) TABLET B Y MOUTH 4 TIMES DAILY NEEDED 05/18/2018 No Stop Date Active Synthroid 75 mcg tablet RxNorm: 507614 1 Tablet(s) PO daily 03/29/2018 09/24/2018 Inactive will call for refill when ready Xanax 0.25 mg tablet RxNorm: 432187 1/2 - 1 Tablet(s) PO QID as needed anxie ty attack 01/24/2018 05/18/2018 Inactive Synthroid 25 mcg tablet RxNorm: 713936 1 Tablet(s) PO daily 12/15/2017 03/28/2018 Inactive take on an empty stomach by itself Flagyl 500 mg tablet RxNorm: 179965 1 Tablet(s) PO TID 12/15/2017 12/14/2017 Inactive Flagyl 500 mg tablet RxNorm: 810357 1 Tablet(s) PO TID 12/15/2017 12/24/2017 Inactive Synthroid 25 mcg tablet RxNorm: 713983 1 Tablet(s) PO daily 12/15/2017 12/14/2017 Inactive Fish Oil 360 mg-1,20 0 mg capsule,delayed release RxNorm: 1 Capsule(s) PO BID 12/14/2017 No Stop Date Active Xifaxan 550 mg tablet RxNorm: 665944 1 Tablet(s) PO TID 12/14/2017 12/27/2017 Inactive Xanax 0.25 mg tablet RxNorm: 256577 1/2 - 1 Tablet(s) PO QID as needed anxie ty attack 12/01/2017 07/11/2018 Inactive Xanax 0.25 mg tablet RxNorm: 949827 1/2 - 1 Tablet(s) PO QID as needed anxie ty attack 08/22/2017 08/28/2017 Inactive Cartia XT 180 mg cap clifford,extended release RxNorm: 556768 Capsule(s) TAKE ONE C APSULE BY MOUTH ONCE DAILY AT BEDTIME 08/04/2017 07/29/2018 Inactive Prozac 40 mg capsule RxNorm: 127268 Capsule(s) TAKE ONE CAPSULE BY MOUTH ONC E DAILY 06/08/2017 06/07/2018 Inactive Prozac 40 mg capsule RxNorm: 478617 TAKE ONE CAPSULE BY MOUTH ONCE DAILY 05/30/2017 06/07/2017 In active Cartia XT 180 mg cap clifford,extended release RxNorm: 121126 TAKE ONE CAPSULE BY M OUTH ONCE DAILY AT BEDTIME 05/08/2017 08/03/2017 Inactive Prozac 40 mg capsule RxNorm: 723223 TAKE ONE CAPSULE BY MOUTH ONCE DAILY 02/03/2017 05/29/2017 In active Eliquis 5 mg tablet RxNorm: 6698003 1 Tablet(s) PO BID 11/09/2016 12/05/2016 Inactive Eliquis 5 mg tablet RxNorm: 6494595 1 Tablet(s) PO BID 11/09/2016 11/08/2016 Inactive Cartia XT 180 mg cap clifford,extended release RxNorm: 191948 1 Capsule(s) PO QHS 11/08/2016 05/06/2017 In active Prozac 40 mg capsule RxNorm: 058187 TAKE ONE CAPSULE BY MOUTH ONCE DAILY 11/07/2016 02/02/2017 In active Phenergan with Codei ne Syrup RxNorm: 2.5 Milliliter(s) PO QHS as needed 10/28/2016 07/11/2018 In active levofloxacin 500 mg tablet RxNorm: 630645 1 Tablet(s) PO daily 10/28/2016 11/06/2016 Inactive Prozac 40 mg capsule RxNorm: 438814 TAKE ONE CAPSULE BY MOUTH ONCE DAILY 08/01/2016 10/29/2016 In active Prozac 40 mg capsule RxNorm: 113328 1 Capsule(s) PO daily 11/05/2015 05/02/2016 Inactive [SAVINGS FOR UNINSURED PATIENTS -- BIN:0 23736, PCN: ASPROD1, Group: [id number], ID# [id number], Process claim through [employer], for questions: . THIS IS NOT INSURANCE.] Xanax 0.25 mg tablet RxNorm: 741654 1/2 - 1 Tablet(s) PO QID as needed anxie ty attack 11/02/2015 01/29/2016 Inactive Prozac 40 mg capsule RxNorm: 074004 Capsule(s) TAKE ONE CAPSULE BY MOUTH ONC E DAILY 08/12/2015 08/11/2015 Inactive NEEDS APPT Prozac 40 mg capsule RxNorm: 894553 TAKE ONE CAPSULE BY MOUTH ONCE DAILY 08/12/2015 07/31/2016 In active hydrocortisone aceta te 25 mg rectal suppository RxNorm: 8257004 1 Suppository RTL QH S 10/02/2014 07/11/2018 Inactive daily HS x 1 week, then twice weekly the n as needed Prozac 40 mg capsule RxNorm: 017522 TAKE ONE CAPSULE BY MOUTH ONCE DAILY 07/31/2014 01/26/2015 In active Prozac 40 mg capsule RxNorm: 886800 1 Capsule(s) PO daily 07/30/2014 02/24/2015 Inactive [SAVINGS FOR NON-COVERED DRUGS -- BIN:00 3585, PCN: ASPROD1, Group: XXXXX, ID# [id number], Questions: . THIS IS NOT INSURANCE.] Xanax 0.25 mg tablet RxNorm: 149087 1/2 - 1 Tablet(s) PO QID as needed anxie ty attack 01/22/2014 03/22/2014 Inactive Prozac 40 mg capsule RxNorm: 574418 1 Capsule(s) PO daily 01/22/2014 07/20/2014 Inactive [SAVINGS FOR UNINSURED PATIENTS -- BIN:0 72457, PCN: ASPROD1, Group: [id number], ID# [id number], Process claim through [employer], for questions: . THIS IS NOT INSURANCE.] Prozac 20 mg capsule RxNorm: 027270 1 Capsule(s) PO daily 08/08/2013 01/21/2014 Inactive Prozac 20 mg capsule RxNorm: 628124 1 Capsule(s) PO daily 07/19/2013 08/07/2013 Inactive Prozac 20 mg capsule RxNorm: 354208 1 Capsule(s) PO daily 02/12/2013 07/18/2013 Inactive Influenza Virus Vacc ine 0.5 mL RxNorm: IM 02/16/2012 02/16/2012 Inactive meloxicam 7.5 mg tablet RxNorm: 705183 1 Tablet(s) PO BID ONE PILL IN MORNING, IF PAIN IS UNCONTROLLED, MAY TAKE ONE EXTRA PILL IN THe PM do not take with ibuprofen or aleve 01/24/2012 02/15/2012 Inactive Aspirin Low Dose 81 mg tablet,delayed release RxNorm: 681396 1 Tablet(s) PO daily No Start Date Active Tylenol 500 mg RxNorm: 1 Tablet(s) PO BID No Start Date Active Repatha SureClick 14 0 mg/mL subcutaneous pen injector RxNorm: 1368717 1 Milliliter(s) SQ Q2 weeks No Start Date Active amiodarone 200 mg ta blet RxNorm: 150721 1/2 Tablet(s) PO daily No Start Date Active melatonin 10 mg tablet RxNorm: 6755379 1 Tablet(s) PO QHS No Start Date Active pantoprazole 40 mg t ablet,delayed release RxNorm: 659699 1 Tablet(s) PO daily No Start Date Active isosorbide mononitra te ER 30 mg tablet,extended release 24 hr RxNorm: 862080 1 Tablet(s) PO daily No Start Date Active melatonin 3 mg Tab RxNorm: 253280 2 Tablet(s) PO QHS No Start Date 12/13/2017 Inactive Xarelto 20 mg tablet RxNorm: 6326689 1 Tablet(s) PO QPM No Start Date 12/13/2017 Inactive Tylenol 8 Hour 650 m g tablet,extended release RxNorm: 0870139 1 Tablet(s) PO BID No Start Date 07/12/2018 Inactive Calcium 600 + D(3) 6 00 mg (1,500 mg)-400 unit Tab RxNorm: 926791 1 Tablet(s) PO QPM No Start Date 12/13/2017 Inactive prasugrel 10 mg tablet RxNorm: 738252 1 Tablet(s) PO daily No Start Date 07/11/2018 Inactive Fish Oil 360 mg-1,20 0 mg capsule,delayed release RxNorm: 1 Capsule(s) PO daily No Start Date 12/13/2017 Inactive PreserVision AREDS 2 oral RxNorm: 2552076 oral No Start Date 07/11/2018 Inactive Prozac 20 mg capsule RxNorm: 518334 1 Capsule(s) PO daily No Start Date 02/11/2013 Inactive Breo Ellipta inhalation RxNorm: 2868916 inhalation No Start Date 12/13/2017 Inactive fenofibrate nanocrys tallized 145 mg tablet RxNorm: 440110 Tablet(s) PO daily No Start Date 10/31/2016 Inactive Centrum Silver Ultra Women's Tab RxNorm: 1 Tablet(s) PO QHS No Start Date 10/31/2016 Inactive Cartia XT 120 mg cap clifford,extended release RxNorm: 152579 1 Capsule(s) PO QHS No Start Date [...] Item Item Code Result Date Free T4 Fpw712 FREE T4 1.12 ng/dL 09/28/2018 Tsh Ord6 TSH (3rd IS) 3.54 uIU/mL 09/28/2018 Tsh Ord6 TSH (3rd IS) 4.90 uIU/mL 06/25/2018 Free T4 Jtn312 FREE T4 1.15 ng/dL 06/25/2018 Free T4 Wjc066 FREE T4 0.52 ng/dL 03/22/2018 Tsh Ord6 [...] 33.4 pg 12/15/2017 Cbc With Differential Ord2 [place]% 17.3 % 12/15/2017 Cbc With Differential Ord2 [...] 0.78 K/ul 12/15/2017 Cbc With Differential Ord2 [place] ABS# 0.4 K/ul 12/15/2017 Cbc With Differential Ord2 Eos ABS# 0.1 K/ul 12/15/2017 Cbc With Differential Ord2 Baso ABS# 0.0 K/ul 12/15/2017 Free T4 Obd445 FREE T4 0.34 ng/dL 12/15/2017 Test(s) Not Perfromed [id number] Test(s) Not Performed Test(s) Not Performed. See Below: 12/14/2017 Test(s) Not Perfromed [id number] TEST NAME CBC 12/14/2017 Test(s) Not Perfromed [id number] Rejection Reason No Suitable Specimen Receive d 12/14/2017 Test(s) Not Perfromed [id number] COMMENT Grace notified for redraw 12/14/2017 Test(s) Not Perfromed [id number] Clam Dredger Wale Whitman 12/14/2017 Tsh Ord6 TSH (3rd IS) 48.79 uIU/mL 12/14/2017 Comp Metabolic Pox734 NA 137 mEq/L 12/14/2017 Comp Metabolic Qkd972 K 4.3 mEq/L 12/14/2017 Comp Metabolic Orx968 CL 101 mEq/L 12/14/2017 Comp Metabolic Gnf596 CO2 29.0 mEq/L 12/14/2017 Comp Metabolic Qgv085 AN ION GAP 11 12/14/2017 Comp Metabolic Wnl334 GL UCOSE 81 mg/dL 12/14/2017 Comp Metabolic Ppu295 Cr eat 0.7 mg/dL 12/14/2017 Comp Metabolic Ort866 eG FR 86 ml/min/1.73m2 12/14 Comp Metabolic Qqv171 BUN 14 mg/dL 12/14/2017 Comp Metabolic Dol206 B/ C Ratio 19.7 Ratio 12/14/2017 Comp Metabolic Ymq380 CA LCIUM 9.2 mg/dL 12/14/2017 Comp Metabolic Cft682 AL K PHOS 112 U/L 12/14/2017 Comp Metabolic Mql623 T(SGOT) 25 U/L 12/14/2017 Comp Metabolic Qwx389 AL T(SGPT) 20 U/L 12/14/2017 Comp Metabolic Xox713 BI LI T 0.8 mg/dL 12/14/2017 Comp Metabolic Byt468 AL BUMIN 4.1 g/dL 12/14/2017 Comp Metabolic Mis923 TP RO 6.9 g/dL 12/14/2017 Comp Metabolic Wsf113 GL OB 2.9 g/dL 12/14/2017 Comp Metabolic Wiq197 A/ G Ratio 1.4 Ratio 12/14/2017 Comp Metabolic Mpr393 Os mo 273 mOsmo 12/14/2017 LIPID GRP HDL TE ST 70 MG/DL 01/23/2014 LIPID GRP TRIG 134 MG/DL 01/23/2014 LIPID GRP TEST L DL 117 MG/DL 01/23/2014 LIPID GRP CHOL 214 MG/DL 01/23/2014 LIPID GRP RCHOL/ HDL 3.06 RATIO 01/23/2014 LIPID GRP 3662546 NON-HD L CH 144 MG/DL 01/23/2014 TSH 5759972 TSH 1.784 uIU/ML 01/23/2014 CBC 4752148 WBC 4.7 10e9/L 01/23/2014 CBC 7024512 RBC 4.10 10e12/L 01/23/2014 CBC 4032911 HGB 13.3 g/dL 01/23/2014 CBC 7203319 HCT DET 39.2 % 01/23/2014 CBC 2975715 MCV 95.6 fL 01/23/2014 CBC 4848157 MCH 32.4 pg 01/23/2014 CBC 5022062 MCHC 33.9 g/dL 01/23/2014 CBC 9624142 PLT 232 10e9/L 01/23/2014 CBC 8567404 MPV 10.9 fL 01/23/2014 CBC 9124504 DORON % 57.4 % 01/23/2014 CBC 8186828 LY % 28.0 % 01/23/2014 CBC 9670684 MON % 12.9 % 01/23/2014 CBC 9086044 EOS % 1.3 % 01/23/2014 CBC 6161221 BASO % 0.4 % 01/23/2014 CBC 9549168 RDW 12.1 % 01/23/2014 CBC 5043171 ABS DORON 2.70 10e9/L 01/23/2014 CBC 1969548 ABS LYMPH 1.32 10e9/L 01/23/2014 CBC 5161332 ABS MONO 0.61 10e9/L 01/23/2014 CBC 6255994 ABS EOS 0.06 10e9/L 01/23/2014 CBC 7414845 ABS BASO 0.02 10e9/L 01/23/2014 CBC 9955282 RDW-SD 41.2 fL 01/23/2014 CHEM 14 5189322 AST 18 U/L 01/23/2014 CHEM 14 1133553 ALT 13 IU/L 01/23/2014 CHEM 14 7083223 BUN 16 MG/DL 01/23/2014 CHEM 14 8213470 ALBUMIN 4.2 GM/DL 01/23/2014 CHEM 14 4053118 CHLORIDE 105 MMOL/L 01/23/2014 CHEM 14 3236561 BILI TOT 0.7 MG/DL 01/23/2014 CHEM 14 7345408 ALK PHOS 61 U/L 01/23/2014 CHEM 14 2228170 SODIUM 138 MMOL/L 01/23/2014 CHEM 14 6444354 CREATINI NE 0.65 MG/DL 01/23/2014 CHEM 14 8152539 CALCIUM 9.5 MG/DL 01/23/2014 CHEM 14 8785501 POTASSIUM 4.4 MMOL/L 01/23/2014 CHEM 14 9127688 PROT TOT 6.8 GM/DL 01/23/2014 CHEM 14 0820256 GLUCOSE 93 MG/DL 01/23/2014 CHEM 14 2399474 BICARB 28 MMOL/L 01/23/2014 CHEM 14 4855976 ANION GAP 5 MEQ/L 01/23/2014 GFR CALC 5516876 GFR AA >60 ML/MIN 01/23/2014 GFR CALC 5343069 GFR NON -AA >60 ML/MIN 01/23/2014 URIC ACID 8117309 URIC A KYLE 5.7 MG/DL 10/13/2011 CHEM 14 4986413 AST 19 U/L 10/13/2011 CHEM 14 4556483 ALT 16 U/L 10/13/2011 CHEM 14 3118305 BUN 21 MG/DL 10/13/2011 CHEM 14 1629497 ALBUMIN 4.2 GM/DL 10/13/2011 CHEM 14 5313157 CHLORIDE 103 MMOL/L 10/13/2011 CHEM 14 9949599 BILI TOT 0.6 MG/DL 10/13/2011 CHEM 14 1223195 ALK PHOS 71 U/L 10/13/2011 CHEM 14 5012878 SODIUM 141 MMOL/L 10/13/2011 CHEM 14 5623805 CREATINI NE 0.65 MG/DL 10/13/2011 CHEM 14 3668764 CALCIUM 9.3 MG/DL 10/13/2011 CHEM 14 8918128 POTASSIUM 4.2 MMOL/L 10/13/2011 CHEM 14 4356863 PROT TOT 6.8 GM/DL 10/13/2011 CHEM 14 7391609 GLUCOSE 69 MG/DL 10/13/2011 CHEM 14 9191086 BICARB 27 MMOL/L 10/13/2011 CHEM 14 2653494 ANION GAP 11 MMOL/L 10/13/2011 CBC 9081243 WBC 6.1 10e9/L 10/13/2011 CBC 6458231 RBC 4.11 10e12/L 10/13/2011 CBC 9828727 HGB 13.3 g/dL 10/13/2011 CBC 3552785 HCT DET 39.6 % 10/13/2011 CBC 7746020 MCV 96.4 fL 10/13/2011 CBC 5300540 MCH 32.4 pg 10/13/2011 CBC 9623227 MCHC 33.6 g/dL 10/13/2011 CBC 3563390 PLT 238 10e9/L 10/13/2011 CBC 0208118 MPV 11.7 fL 10/13/2011 CBC 9911394 DORON % 50.2 % 10/13/2011 CBC 4243588 LY % 35.6 % 10/13/2011 CBC 7531137 MON % 12.7 % 10/13/2011 CBC 0985798 EOS % 1.2 % 10/13/2011 CBC 2613719 BASO % 0.3 % 10/13/2011 CBC 9508715 RDW 12.3 % 10/13/2011 CBC 6116488 ABS DORON 3.06 10e9/L 10/13/2011 CBC 6000262 ABS LYMPH 2.17 10e9/L 10/13/2011 CBC 4367770 ABS MONO 0.77 10e9/L 10/13/2011 CBC 3082390 ABS EOS 0.07 10e9/L 10/13/2011 CBC 3201366 ABS BASO 0.02 10e9/L 10/13/2011 CBC 3396107 RDW-SD 42.3 fL 10/13/2011 GFR CALC 5899530 GFR AA >60 ML/MIN 10/13/2011 GFR CALC 4700079 GFR NON -AA >60 ML/MIN 10/13/2011 ESR 9665842 ESR 14 MM/HR 10/13/2011 Review of Systems [...] clear 11/05/2015 None Full Exam - General 1995 Ears/Nose/Throat [...] clubbing 02/07/2013 None Full Exam - General 1995 Cardiovascular auscultation of heart Overall: regular rate 02/07/2013 None Full Exam - General 1995 Cardiovascular auscultation of heart Overall: normal heart sounds 02/07/2013 None Full Exam - General 1995 Abdomen abdominal exam Overall: no tenderness 02/07/2013 None Full Exam - General 1995 Abdomen abdominal exam Overall: normal bowel sounds 02/07/2013 None Full Exam - General 1995 Abdomen liver and spleen exam Overall: no hepatosplenomegaly 02/07/2013 None Full Exam - General 1995 Abdomen liver and spleen exam Overall: no stigmata of chronic liver disease 02/07/2013 None Full Exam - General 1995 Lymphatic neck nodes Overall: anterior cervical chain benign 02/07/2013 None Full Exam - General 1995 Lymphatic neck nodes Overall: posterior cervical chain benign 02/07/2013 None Full Exam - General 1995 Musculoskeletal head and neck Overall: head atraumatic 02/07/2013 None Full Exam - General 1995 Musculoskeletal [...] accomodation 01/24/2012 None Full Exam - General 1995 [...] SY CPT-4: G8553 01/24/2012 ROUTINE VENIPUNCTURE CPT-4: 45612 10/13/2011 Vital Signs Date Vital 07/12/2018 Blood Pressure 1: 126/68 Code: 8480-6 BMI: 28.4 Code: 76941-9 Heart Rate 1: 71 bpm Height: 5' SpO2: 97% Weight: 148 lbs 12/14/2017 Blood Pressure 1: 138/80 Code: 8480-6 BMI: 28.8 Code: 16417-5 Heart Rate 1: 73 bpm Height: 5' SpO2: 98% Weight: 150 lbs 12/06/2016 Blood Pressure 1: 146/82 Code: 8480-6 BMI: 26.8 Code: 96604-6 Heart Rate 1: 58 bpm Height: 5' [...] 1: 118/74 Code: 8480-6 BMI: 25.7 Code: 07001-8 Heart Rate 1: 64 bpm Height: 5' SpO2: 98% Weight: 134 lbs 10/02/2014 Blood Pressure 1: 136/88 Code: 8480-6 BMI: 25.9 Code: 27674-9 Heart Rate 1: 68 bpm Height: 5' SpO2: 98% Weight: 135 lbs 01/22/2014 Blood Pressure 1: 122/64 Code: 8480-6 BMI: 25.7 Code: 83769-9 Heart Rate 1: 72 bpm Height: 5' Weight: 134 lbs 02/07/2013 Blood Pressure 1: 140/80 Code: 8480-6 BMI: 23.6 Code: 15465-8 Height: 5' Weight: 123 lbs 02/16/2012 Blood Pressure 1: 102/68 Code: 8480-6 Heart Rate 1: 68 bpm Respiratory Rate: 18 bpm Weight: 131 lbs 01/24/2012 Blood Pressure 1: 120/72 Code: 8480-6 Heart Rate 1: 72 bpm Respiratory Rate: 16 bpm Weight: 133 lbs 10/31/2011 Blood Pressure 1: 136/84 Code: 8480-6 BMI: 23.2 Code: 33535-5 Heart Rate 1: 74 bpm Height: 5'2" Respiratory Rate: 16 bpm Weight: 127 lbs 10/13/2011 Blood Pressure 1: 138/84 Code: 8480-6 BMI: 23.2 Code: 19791-4 Heart Rate 1: 80 bpm Height: 5'2" [...] activity 12/06/2016 cardioversion cough Location in the [facility] 11/08/2016 None cough Quality acute 11/08/2016 None [...] Quality blee ding 02/07/2013 None hemorrhoids 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 P ATIENT, LEVEL III Diagnosis: Low back pain[ICD10: M54.5] Jennifer Walker MD, [facility] CPT- 4: 64680 07/12/2018 ([id number]) 83017 EST. P ATIENT, LEVEL IV Diagnosis: Paroxysmal atrial fibrillation[ICD10: I48.0] Diagnosis: Abnormal weight gain[ICD10: R63.5] Diagnosis: Irritable bowel syndrome with diarrhea[ICD10: K58.0] Jennifer Walker MD, [facility] CPT-4: 26536 12/14/2017 ([id number]) 25516 EST. P ATIENT, LEVEL III Diagnosis: Paroxysmal atrial fibrillation[ICD10: I48.0] Jennifer Walker MD, [facility] CPT-4: 09770 12/06/2016 ([id number]) 23387 EST. P ATIENT, LEVEL IV Diagnosis: Paroxysmal atrial fibrillation[ICD10: I48.0] Diagnosis: Pneumonia, unspecified organism[ICD10: J18.9] Jennifer Walker MD, [facility] CPT-4: 53695 11/08/2016 ([id number]) 15951 EST. P ATIENT, LEVEL III Diagnosis: Cough[ICD10: R05] Diagnosis: Pneumonia, unspecified organism[ICD10: J18.9] Jennifer Walker MD, [facility] CPT-4: 08333 11/01/2016 ([id number]) 77393 EST. P ATIENT, LEVEL III Diagnosis: Generalized anxiety disorder[ICD10: F41.1] Jennifer Walker MD, [facility] CPT-4: 32917 11/05/2015 ([id number]) 01082 EST. P ATIENT, LEVEL III Diagnosis: Rectal bleeding[ICD9: 569.3] Jennifer Walker MD, [facility] CPT- 4: 84027 10/02/2014 ([id number]) 36074 EST. P ATIENT, LEVEL III Diagnosis: Anxiety, generalized[ICD9: 300.02] Diagnosis: Depression[ICD9: 311] Kim Walker MD, [facility] CPT-4: 48297 01/22/2014 ([id number]) 36994 EST. P ATIENT, LEVEL III Diagnosis: Bloody feces[ICD9: 578.1] [facility] CPT-4: 20447 02/07/2013 ([id number]) 36582 EST. P ATIENT, LEVEL III Diagnosis: OSTEOARTH NOS-UNSPEC[ICD9: 715.90] Diagnosis: MUSCLE/LIGAMENT DIS NEC[ICD9: 728.89] [facility] CPT-4: 17805 02/16/2012 ([id number]) 42578 EST. P ATIENT, LEVEL III Diagnosis: Iliotibial band syndrome[ICD9: 728.89] Diagnosis: OSTEOARTH NOS-UNSPEC[ICD9: 715.90] Diagnosis: PAIN IN LIMB[ICD9: 729.5] [facility] CPT-4: 14916 01/24/2012 ([id number]) 21356 EST. P ATIENT, LEVEL IV Diagnosis: OSTEOARTH NOS-UNSPEC[ICD9: 715.90] Diagnosis: ROUTINE GYNE EXAM[ICD9: V72.31] [facility] CPT-4: 70953 10/31/2011 OFFICE VISIT, NEW - LEVEL 4 Diagnosis: Osteoarthritis[ICD9: 715.90] Diagnosis: INSOMNIA NOS[ICD9: 780.52] Diagnosis: PAIN IN LIMB[ICD9: 729.5] [facility] CPT-4: 38904 10/13/2011 Plan of Care Planned Activity Notes C odes Status Date Visit Plan: Low back pain- patient' s pain is actually improved -recommend MRI -refer to Dr Crouch if needed- okay to use tylenol for pain -also discussed PT if indicated-patient verbalized understanding of plan. 07/12/2018 Appointment: Jennifer Vera WPtel: [address] [place], [place] [phone] (30 min) [facility] 07/12/2018 Patient Education: Patient Medication Summary Completed 07/12/2018 Patient Education: Back Pain Completed 07/12/2018 Care Plan: MRI LUMBAR SPINE W/O DYE LOINC : 48113-1 Pending 07/12/2018 Patient Education: Patient Medication Summary [...] TSH 12/14/2017 Appointment: Jennifer Vera WPtel: [facility] [address] (15 min) Moderate 12/14/2017 Patient Education: Patient Medication Summary Completed 12/14/2017 Care Plan: Cbc With Differential Pending 12/14/2017 Visit Plan: Afib-converted to NSR b y Dr Solorzano-on xarelto- instructed patient to report if they start to feel as if their heart rate is becoming uncontrolled or other symptoms develop. Patient verbalized understan zayra. 12/06/2016 Appointment: Jennifer Vera WPtel: [facility] [place] [phone] (15 min) Moderate 12/06/2016 Patient Education: Patient Medication Summary Completed 12/06/2016 Visit Plan: Afib-ordered EKG to con firm-increase cartia for heart rate control and start eliquis 5mg twice daily-follow up with Dr Solorzano Pneumonia-finished abx-no further treatment indicated 11/08/2016 Appointment: Jennifer Vera WPtel: [facility] [address] (30 min) Complex 11/08/2016 Patient Education: Patient Medication Summary Completed 11/08/2016 Visit Plan: Pneumonia-on abx per ur gent-continue current treatment and follow up in 1 week to ensure resolution of symptoms. Call sooner for worsening or new symptoms. Patient verbalized understanding of plan. 11/01/2016 Appointment: Jennifer Vera WPtel: [facility] [phone] (15 min) Moderate 11/01/2016 Patient Education: Patient [...] medications. 11/05/2015 Appointment: Jennifer Vera WPtel: [phone] (15 min) Moderate 11/05/2015 Patient [...] panic attacks 01/22/2014 Appointment: Kim Walker WPtel: [address] [place], [place] [phone] Sick 01/22/2014 Patient Education: Patient Medication Summary Completed 01/22/2014 Care Plan: COMPLETE CBC AUTOMATED LOINC : 91406-7 Ordered 01/22/2014 Visit Plan: Blood in stool [...] up. 02/07/2013 Appointment: Kim Walker WPtel: [facility] Follow up 02/07/2013 Patient Education: Patient Medication Summary Completed 02/07/2013 Visit Plan: Arthritis- occasionally uncontrolled symptoms- recommend pt to take antiinflammatory as directed for pain control. Use tylenol for break through pain symptoms.Start mobic daily Leg length discrepency - recommended pt to place: dr gilliland inserts- 2 in the left shoe 02/16/2012 Appointment: Kim Walker WPtel: [facility] Follow up 02/16/2012 Patient [...] re-eval. 01/24/2012 Appointment: Kim Walker WPtel: [facility] Other 01/24/2012 Patient Education: Patient Medication [...] times daily. 10/31/2011 Appointment: Kim Walker WPtel: [phone] [facility] [facility] 10/31/2011 Patient [...] time insomnia. 10/13/2011 Appointment: Kim Walker WPtel: [address] [place], [place] [phone] New Patient 10/13/2011 Patient Education: Patient Medication [...]
--- OUTSIDE RECORDS SUMMARY | 2019-12-04 07:02 | XMS REPORT | CCD ---
Author Author Linda Walker Organization Kim Walker MD, [facility] Address [address] [place] [address] Phone Care Team Providers Care Shrinker Name Role Phone PP Unavailable CCM Unavailable Summary Purpose Interface Exchange Insurance Providers Payer name Policy type / Coverage type Covered republican ID Effective Begin Date Effective End Date RACHEL GBA [id number] 2016 Unknown [employer] [id number] 2016 Unknown Family history Mother Diagnosis Age At Onset Breast cancer Unknown Brother Diagnosis Age At Onset Arthritis Unknown Grandson Diagnosis Age At Onset Diabetes Unknown Social History Social History Element Codes Description Effective Dates Tobacco history SNOMED CT: 1373365 Former smoker quit 03/201301/22/2014 Employment Unknown Retir ed 10/13/2011 Marital status Unknown D ivorced 10/10/2011 Number of children Unknown 1 10/10/2011 Alcohol history Unknown occasionally drinks alcohol 1 drink per month with meals 012 Allergies, Adverse Reactions, Alerts Allergies, Adverse Reactions, Alerts data not found Past Medical History Illness Codes Condition Status Onset Date Resolved Date Paroxysmal atrial fi brillation ICD-9: 427.31 ICD-10: I48.0 Active 11/08/2016 Unknown Pneumonia, unspecifi ed organism ICD-9: 486 ICD-10: J18.9 Active 11/01/2016 Unknown Cough ICD-9: 786.2 ICD-10: R05 Active 11/01/2016 Unknown Generalized anxiety disorder ICD-9: 300.02 ICD-10: F41.1 Active 11/04/2015 Unknown Rectal bleeding ICD-9: 569.3 Active 10/01/2014 [...] Condition Codes Effectiv e Dates Condition Status Paroxysmal atrial fi brillation ICD-9: 427.31 ICD-10: I48.0 11/08/2016 Active Pneumonia, unspecifi ed organism ICD-9: 486 ICD-10: J18.9 11/01/2016 Active Cough ICD-9: 786.2 ICD-10: R05 11/01/2016 Active Generalized anxiety disorder ICD-9: 300.02 ICD-10: F41.1 11/04/2015 Active Rectal bleeding ICD-9: 569.3 10/01/2014 Active [...] Date Stop Date Sta tus Fill Instructions Eliquis 5 mg tablet RxNorm: 1897882 1 Tablet(s) PO BID 11/09/2016 12/05/2016 Inactive Eliquis 5 mg tablet RxNorm: 0072047 1 Tablet(s) PO BID 11/09/2016 11/08/2016 Inactive Cartia XT 180 mg cap clifford,extended release RxNorm: 221546 1 Capsule(s) PO QHS 11/08/2016 05/06/2017 Ac tive Prozac 40 mg capsule RxNorm: 286409 TAKE ONE CAPSULE BY MOUTH ONCE DAILY 11/07/2016 02/04/2017 Ac tive Phenergan with Codei ne Syrup RxNorm: 2.5 Milliliter(s) PO QHS as needed 10/28/2016 No Stop Date Active levofloxacin 500 mg tablet RxNorm: 049054 1 Tablet(s) PO daily 10/28/2016 11/06/2016 Inactive Prozac 40 mg capsule RxNorm: 240865 TAKE ONE CAPSULE BY MOUTH ONCE DAILY 08/01/2016 10/29/2016 In active Prozac 40 mg capsule RxNorm: 020458 1 Capsule(s) PO daily 11/05/2015 05/02/2016 Inactive [SAVINGS FOR UNINSURED PATIENTS -- BIN:0 17400, PCN: [id number], Group: [id number], ID# [id number], Process claim through [employer], for questions: . THIS IS NOT INSURANCE.] Xanax 0.25 mg tablet RxNorm: 159963 1/2 - 1 Tablet(s) PO QID as needed anxie ty attack 11/02/2015 01/30/2016 Inactive Prozac 40 mg capsule RxNorm: 547575 Capsule(s) TAKE ONE CAPSULE BY MOUTH ONC E DAILY 08/12/2015 08/11/2015 Inactive NEEDS APPT Prozac 40 mg capsule RxNorm: 482978 TAKE ONE CAPSULE BY MOUTH ONCE DAILY 08/12/2015 07/31/2016 In active hydrocortisone aceta te 25 mg rectal suppository RxNorm: 2044590 1 Suppository RTL QH S 10/02/2014 No Stop Date Active daily HS x 1 week, then twice weekly the n as needed Prozac 40 mg capsule RxNorm: 316188 TAKE ONE CAPSULE BY MOUTH ONCE DAILY 07/31/2014 01/26/2015 In active Prozac 40 mg capsule RxNorm: 404221 1 Capsule(s) PO daily 07/30/2014 02/24/2015 Inactive [SAVINGS FOR NON-COVERED DRUGS -- BIN:00 3585, PCN: [id number], Group: [id number], ID# [id number], Questions: . THIS IS NOT INSURANCE.] Xanax 0.25 mg tablet RxNorm: 639988 1/2 - 1 Tablet(s) PO QID as needed anxie ty attack 01/22/2014 03/22/2014 Inactive Prozac 40 mg capsule RxNorm: 632870 1 Capsule(s) PO daily 01/22/2014 07/20/2014 Inactive [SAVINGS FOR UNINSURED PATIENTS -- BIN:0 75341, PCN: [id number], Group: [id number], ID# [id number], Process claim through [employer], for questions: . THIS IS NOT INSURANCE.] Prozac 20 mg capsule RxNorm: 621753 1 Capsule(s) PO daily 08/08/2013 01/21/2014 Inactive Prozac 20 mg capsule RxNorm: 712090 1 Capsule(s) PO daily 07/19/2013 08/07/2013 Inactive Prozac 20 mg capsule RxNorm: 767533 1 Capsule(s) PO daily 02/12/2013 07/18/2013 Inactive Influenza Virus Vacc ine 0.5 mL RxNorm: IM 02/16/2012 02/16/2012 Inactive meloxicam 7.5 mg tablet RxNorm: 189290 1 Tablet(s) PO BID ONE PILL IN MORNING, IF PAIN IS UNCONTROLLED, MAY TAKE ONE EXTRA PILL IN THe PM do not take with ibuprofen or aleve 01/24/2012 02/15/2012 Inactive melatonin 3 mg Tab RxNorm: 768491 2 Tablet(s) PO QHS No Start Date Active Xarelto 20 mg tablet RxNorm: 9806916 1 Tablet(s) PO QPM No Start Date Active Calcium 600 + D(3) 6 00 mg (1,500 mg)-400 unit Tab RxNorm: 315278 1 Tablet(s) PO QPM No Start Date Active Fish Oil 360 mg-1,20 0 mg capsule,delayed release RxNorm: 1 Capsule(s) PO daily No Start Date Active Breo Ellipta inhalation RxNorm: 2886288 inhalation No Start Date Active Prozac 20 mg capsule RxNorm: 571504 1 Capsule(s) PO daily No Start Date 02/11/2013 Inactive fenofibrate nanocrys tallized 145 mg tablet RxNorm: 558962 Tablet(s) PO daily No Start Date 10/31/2016 Inactive Centrum Silver Ultra Women's Tab RxNorm: 1 Tablet(s) PO QHS No Start Date 10/31/2016 Inactive Cartia XT 120 mg cap clifford,extended release RxNorm: 822414 1 Capsule(s) PO QHS No Start Date [...] completed Assessments Condition Codes Effectiv e Dates Paroxysmal atrial fibrillation ICD-1 0: I48.0 ICD-9: 427.31 12/06/2016 Pneumonia, unspecified organism ICD- 10: J18.9 ICD-9: [...] Visit Reason For Visit Effective Dates Notes hypertension 12/06/2016 cough 11/08/2016 Urgent Care = pneumonia cough 11/01/2016 Urgent Care = pneumonia anxiety 11/05/2015 hemorrhoids 10/02/2014 depression 01/22/2014 hemorrhoids 02/07/2013 hip pain 02/16/2012 --Im proved hip pain 01/24/2012 well woman exam (65+ years) 10/31/2011 foot pain 10/13/2011 Results Observation Observation Code Item Item Code Result Date LIPID GRP HDL TE ST 70 MG/DL 01/23/2014 LIPID GRP TRIG 134 MG/DL 01/23/2014 LIPID GRP TEST L DL 117 MG/DL 01/23/2014 LIPID GRP CHOL 214 MG/DL 01/23/2014 LIPID GRP RCHOL/ HDL 3.06 RATIO 01/23/2014 LIPID GRP NON-HD L CH 144 MG/DL 01/23/2014 TSH 0770794 TSH 1.784 uIU/ML 01/23/2014 CBC 9340669 WBC 4.7 10e9/L 01/23/2014 CBC 3335489 RBC 4.10 10e12/L 01/23/2014 CBC 4537947 HGB 13.3 g/dL 01/23/2014 CBC 6178839 HCT DET 39.2 % 01/23/2014 CBC 0599983 MCV 95.6 fL 01/23/2014 CBC 1574232 MCH 32.4 pg 01/23/2014 CBC 9927048 MCHC 33.9 g/dL 01/23/2014 CBC 5863713 PLT 232 10e9/L 01/23/2014 CBC 1590481 MPV 10.9 fL 01/23/2014 CBC 9724887 DORON % 57.4 % 01/23/2014 CBC 2599828 LY % 28.0 % 01/23/2014 CBC 0818123 MON % 12.9 % 01/23/2014 CBC 3333477 EOS % 1.3 % 01/23/2014 CBC 8930039 BASO % 0.4 % 01/23/2014 CBC 3270785 RDW 12.1 % 01/23/2014 CBC 4776808 ABS DORON 2.70 10e9/L 01/23/2014 CBC 2527838 ABS LYMPH 1.32 10e9/L 01/23/2014 CBC 0885947 ABS MONO 0.61 10e9/L 01/23/2014 CBC 1496057 ABS EOS 0.06 10e9/L 01/23/2014 CBC 5187512 ABS BASO 0.02 10e9/L 01/23/2014 CBC 2611499 RDW-SD 41.2 fL 01/23/2014 CHEM 14 8843830 AST 18 U/L 01/23/2014 CHEM 14 5354807 ALT 13 IU/L 01/23/2014 CHEM 14 1310735 BUN 16 MG/DL 01/23/2014 CHEM 14 6098321 ALBUMIN 4.2 GM/DL 01/23/2014 CHEM 14 1946578 CHLORIDE 105 MMOL/L 01/23/2014 CHEM 14 2486394 BILI TOT 0.7 MG/DL 01/23/2014 CHEM 14 7264400 ALK PHOS 61 U/L 01/23/2014 CHEM 14 0408377 SODIUM 138 MMOL/L 01/23/2014 CHEM 14 2767488 CREATINI NE 0.65 MG/DL 01/23/2014 CHEM 14 8065624 CALCIUM 9.5 MG/DL 01/23/2014 CHEM 14 1816716 POTASSIUM 4.4 MMOL/L 01/23/2014 CHEM 14 7447179 PROT TOT 6.8 GM/DL 01/23/2014 CHEM 14 9051636 GLUCOSE 93 MG/DL 01/23/2014 CHEM 14 7313861 BICARB 28 MMOL/L 01/23/2014 CHEM 14 1763690 ANION GAP 5 MEQ/L 01/23/2014 GFR CALC 8407154 GFR AA >60 ML/MIN 01/23/2014 GFR CALC 6947907 GFR NON -AA >60 ML/MIN 01/23/2014 URIC ACID 8734367 URIC A KYLE 5.7 MG/DL 10/13/2011 CHEM 14 4150039 AST 19 U/L 10/13/2011 CHEM 14 2053750 ALT 16 U/L 10/13/2011 CHEM 14 6512227 BUN 21 MG/DL 10/13/2011 CHEM 14 1914709 ALBUMIN 4.2 GM/DL 10/13/2011 CHEM 14 9650201 CHLORIDE 103 MMOL/L 10/13/2011 CHEM 14 9736197 BILI TOT 0.6 MG/DL 10/13/2011 CHEM 14 0757254 ALK PHOS 71 U/L 10/13/2011 CHEM 14 3088848 SODIUM 141 MMOL/L 10/13/2011 CHEM 14 7045415 CREATINI NE 0.65 MG/DL 10/13/2011 CHEM 14 2440611 CALCIUM 9.3 MG/DL 10/13/2011 CHEM 14 7714429 POTASSIUM 4.2 MMOL/L 10/13/2011 CHEM 14 4993857 PROT TOT 6.8 GM/DL 10/13/2011 CHEM 14 1710822 GLUCOSE 69 MG/DL 10/13/2011 CHEM 14 8693969 BICARB 27 MMOL/L 10/13/2011 CHEM 14 1463424 ANION GAP 11 MMOL/L 10/13/2011 CBC 3975982 WBC 6.1 10e9/L 10/13/2011 CBC 9074313 RBC 4.11 10e12/L 10/13/2011 CBC 9406209 HGB 13.3 g/dL 10/13/2011 CBC 2081499 HCT DET 39.6 % 10/13/2011 CBC 0904158 MCV 96.4 fL 10/13/2011 CBC 8714678 MCH 32.4 pg 10/13/2011 CBC 0431144 MCHC 33.6 g/dL 10/13/2011 CBC 0437737 PLT 238 10e9/L 10/13/2011 CBC 0514432 MPV 11.7 fL 10/13/2011 CBC 8567849 DORON % 50.2 % 10/13/2011 CBC 5309466 LY % 35.6 % 10/13/2011 CBC 2242389 MON % 12.7 % 10/13/2011 CBC 9464737 EOS % 1.2 % 10/13/2011 CBC 2456974 BASO % 0.3 % 10/13/2011 CBC 8266291 RDW 12.3 % 10/13/2011 CBC 4977517 ABS DORON 3.06 10e9/L 10/13/2011 CBC 8450006 ABS LYMPH 2.17 10e9/L 10/13/2011 CBC 9251621 ABS MONO 0.77 10e9/L 10/13/2011 CBC 8245545 ABS EOS 0.07 10e9/L 10/13/2011 CBC 9535723 ABS BASO 0.02 10e9/L 10/13/2011 CBC 5979023 RDW-SD 42.3 fL 10/13/2011 GFR CALC 7078148 GFR AA >60 ML/MIN 10/13/2011 GFR CALC 0929550 GFR NON -AA >60 ML/MIN 10/13/2011 ESR 7206154 ESR 14 MM/HR 10/13/2011 Review of Systems System Result Effective Dates Constitutional No recent illness 12/06/2016 Constitutional No [...] tenderness 10/31/2011 None Full Exam - General 1995 Abdomen abdominal exam Overall: normal bowel sounds 10/31/2011 None Full Exam - General 1994 Abdomen liver and spleen exam Overall: no hepatosplenomegaly 10/31/2011 None Full Exam - General 1994 Abdomen liver and spleen exam Overall: no stigmata of chronic liver disease 10/31/2011 None Full Exam - General 1995 Lymphatic neck nodes Overall: anterior cervical chain benign 10/31/2011 None Full Exam - General 1994 Lymphatic neck nodes Overall: posterior cervical chain benign 10/31/2011 None Full Exam - General 1995 Musculoskeletal lower extremity Inspection - foot: a [...] Date ADMIN INFLUENZA VIRU S VAC CPT-4: [id number] 02/16/2012 FLULAVAL VACC, 3 YRS & >, IM CPT-4: [id number] 02/16/2012 PRESCRIP TRANSMIT A ERX SY CPT-4: [id number] 01/24/2012 ROUTINE VENIPUNCTURE CPT-4: [id number] 10/13/2011 Vital Signs Date Vital 12/06/2016 Blood Pressure 1: 146/82 Code: 8480-6 BMI: 26.8 Code: 23501-7 Heart Rate 1: 58 bpm Height: 5' [...] 1: 118/74 Code: 8480-6 BMI: 25.7 Code: 50673-8 Heart Rate 1: 64 bpm Height: 5' SpO2: 98% Weight: 134 lbs 10/02/2014 Blood Pressure 1: 136/88 Code: 8480-6 BMI: 25.9 Code: 98632-2 Heart Rate 1: 68 bpm Height: 5' SpO2: 98% Weight: 135 lbs 01/22/2014 Blood Pressure 1: 122/64 Code: 8480-6 BMI: 25.7 Code: 66725-9 Heart Rate 1: 72 bpm Height: 5' Weight: 134 lbs 02/07/2013 Blood Pressure 1: 140/80 Code: 8480-6 BMI: 23.6 Code: 49152-8 Height: 5' Weight: 123 lbs 02/16/2012 Blood Pressure 1: 102/68 Code: 8480-6 Heart Rate 1: 68 bpm Respiratory Rate: 18 bpm Weight: 131 lbs 01/24/2012 Blood Pressure 1: 120/72 Code: 8480-6 Heart Rate 1: 72 bpm Respiratory Rate: 16 bpm Weight: 133 lbs 10/31/2011 Blood Pressure 1: 136/84 Code: 8480-6 BMI: 23.2 Code: 66651-3 Heart Rate 1: 74 bpm Height: 5'2" Respiratory Rate: 16 bpm Weight: 127 lbs 10/13/2011 Blood Pressure 1: 138/84 Code: 8480-6 BMI: 23.2 Code: 73531-8 Heart Rate 1: 80 bpm Height: 5'2" Respiratory Rate: 16 bpm Weight: 127 lbs Functional Status No Functional Status data History of Present Illness Symptom Name Status Resu lt Effective Date Notes hypertension Onset and Resolution ongoing 12/06/2016 None [...] Quality blee ding 02/07/2013 None hemorrhoids Quality crtt holly 02/07/2013 None hemorrhoids Onset and Resolution [...] Encounters Encounter Performer Loca tion Codes Date ([id number]) 69615 EST. P ATIENT, LEVEL III Diagnosis: Paroxysmal atrial fibrillation[ICD10: I48.0] Jennifer Walker MD, [facility] CPT-4: 52081 12/06/2016 ([id number]) 75633 EST. P ATIENT, LEVEL IV Diagnosis: Paroxysmal atrial fibrillation[ICD10: I48.0] Diagnosis: Pneumonia, unspecified organism[ICD10: J18.9] Jennifer Walker MD, [facility] CPT-4: 83810 11/08/2016 ([id number]) 71453 EST. P ATIENT, LEVEL III Diagnosis: Cough[ICD10: R05] Diagnosis: Pneumonia, unspecified organism[ICD10: J18.9] Jennifer Walker MD, [facility] CPT-4: 81651 11/01/2016 ([id number]) 58578 EST. P ATIENT, LEVEL III Diagnosis: Generalized anxiety disorder[ICD10: F41.1] Jennifer Walker MD, [facility] CPT-4: 28135 11/05/2015 ([id number]) 02393 EST. P ATIENT, LEVEL III Diagnosis: Rectal bleeding[ICD9: 569.3] Jennifer Walker MD, [facility] CPT- 4: 35075 10/02/2014 ([id number]) 44461 EST. P ATIENT, LEVEL III Diagnosis: Anxiety, generalized[ICD9: 300.02] Diagnosis: Depression[ICD9: 311] Kim Walker MD, [facility] CPT-4: 62501 01/22/2014 ([id number]) 48597 EST. P ATIENT, LEVEL III Diagnosis: Bloody feces[ICD9: 578.1] Kim Walker MD, [facility] CPT-4: 23329 02/07/2013 ([id number]) 65881 EST. P ATIENT, LEVEL III Diagnosis: OSTEOARTH NOS-UNSPEC[ICD9: 715.90] Diagnosis: MUSCLE/LIGAMENT DIS NEC[ICD9: 728.89] Kim Walker MD, [facility] CPT-4: 69233 02/16/2012 ([id number]) 40838 EST. P ATIENT, LEVEL III Diagnosis: Iliotibial band syndrome[ICD9: 728.89] Diagnosis: OSTEOARTH NOS-UNSPEC[ICD9: 715.90] Diagnosis: PAIN IN LIMB[ICD9: 729.5] [facility] CPT-4: 75026 01/24/2012 ([id number]) 15495 EST. [facility]: OSTEOARTH NOS-UNSPEC[ICD9: 715.90] Diagnosis: ROUTINE GYNE EXAM[ICD9: V72.31] [facility] CPT-4: 90267 10/31/2011 OFFICE VISIT, NEW - LEVEL 4 Diagnosis: Osteoarthritis[ICD9: 715.90] Diagnosis: INSOMNIA NOS[ICD9: 780.52] Diagnosis: PAIN IN LIMB[ICD9: 729.5] [facility] CPT-4: 98701 10/13/2011 Plan of Care Planned Activity Notes C odes Status Date Visit Plan: Afib-converted to NSR by Dr Solorzano-on xarelto-instructed patient to report if they start to feel as if their heart rate is becoming uncontrolled or other symptoms develop. Patient verbalized understanding. 12/06/2016 Appointment: Jennifer Vera WPtel: [address] [place], [place] [phone] (15 min) Moderate 12/06/2016 Patient Education: Patient Medication Summary Completed 12/06/2016 Visit Plan: Afib-ordered EKG to confirm- increase cartia for heart rate control and start eliquis 5mg twice daily-follow up with Dr Solorzano Pneumonia-finished abx-no further treatment indicated 11/08/2016 Appointment: Jennifer Vera WPtel: [address] [place], [place] [phone] [place] (30 min) Complex 11/08/2016 Patient Education: Patient Medication Summary Completed 11/08/2016 Visit Plan: Pneumonia-on abx per urgent- continue current treatment and follow up in 1 week to ensure resolution of symptoms. Call sooner for worsening or new symptoms. Patient verbalized understanding of plan. 11/01/2016 Appointment: Jennifer Vera WPtel: [facility] [place] [facility] [phone] (15 min) Moderate 11/01/2016 Patient Education: Patient Medication Summary Completed 11/01/2016 Visit Plan: Chronic Depression and anxie ty - the pt has symptoms of chronic anxiety and depression that have been fairly well controlled since the last office visit. The pt has expected periods of exacerbation with abatement of the symptoms with change in situational exposure. No change in current medications. 11/05/2015 Appointment: Jennifer Vera WPtel: [facility] [place] [facility] [phone] (15 min) Moderate 11/05/2015 Patient Education: Patient Medication Summary Completed 11/05/2015 Visit Plan: Rectal bleeding-history of i nternal hemorrhoids per patient report- RX for annusol suppositories sent to patient's pharmacy and instructed on use- refer to Dr Lara for follow up 10/02/2014 Appointment: Sick 10/02/2014 Patient Education: Patient Medication Summary Completed 10/02/2014 Appointment: Follow up 09/30/2014 Visit Plan: Chronic Depression and anxie ty - the pt has symptoms of chronic anxiety and depression that have been uncontrolled since the last office visit. The pt has expected periods of exacerbation with abatement of the symptoms with change in situational exposure. Pt to increase dose of prozac to 40mg daily and use prn xanax for panic attacks 01/22/2014 Appointment: Kim Walker WPtel: [facility] [place] [facility] [place] [facility] [address] Sick 01/22/2014 Patient Education: Patient Medication Summary Completed 01/22/2014 Care Plan: COMPLETE CBC AUTOMATED LOINC : 44958-2 Ordered 01/22/2014 Visit Plan: Blood in stool [...] work up. 02/07/2013 Appointment: Kim Walker WPtel: [phone] [facility] [address] [place] Follow up 02/07/2013 Patient Education: Patient Medication Summary Completed 02/07/2013 Visit Plan: Arthritis- occasionally unc ontrolled symptoms- recommend pt to take antiinflammatory as directed for pain control.Use tylenol for break through pain symptoms.Start mobic dailyLeg length discrepency - recommended pt to place: dr gilliland inserts- 2 in the left shoe 02/16/2012 Appointment: Kim Walker WPtel: [phone] [facility] [address] [place] Follow up 02/16/2012 Patient Education: Patient Medication Summary Completed 02/16/2012 Patient Education: Iliotibial Band Syndrome Exercises Completed 02/16/2012 Patient Education: Iliotibial Band Syndr ome Exercises, Page 2: Illustration Completed 02/16/2012 Patient Education: Iliotibial Band Syndr ome Exercises, Page 1: Illustration Completed 02/16/2012 Patient Education: .Amazing charts Exercise for Sciati ca Completed 02/16/2012 Visit Plan: Ilitibial band syndrome- rec ommended use of antiinflammatories and pt given handout on Ilitibial band exercises.Xrays of the hip today - pt sent to hospital with order for hip xrays.Mobic 7.5mg scheduled once daily and prn in the evening and tylenol daily for pain.Pt to RTC in a few weeks for re-eval. 01/24/2012 [facility] [facility] [place] Other 01/24/2012 Patient Education: Patient Medication Summary Completed 01/24/2012 Patient Education: Iliotibial Band Syndrome Exercises Completed 01/24/2012 Patient Education: Iliotibial Band Syndr ome Exercises, Page 2: Illustration Completed 01/24/2012 Patient Education: Iliotibial Band Syndr ome Exercises, Page 1: Illustration Completed 01/24/2012 Visit Plan: Well Adult Female - exam c ompleted. Pap and breast exam completed. Pt will be called with results of her testing. She was advised to continue with yearly annual exams. Safe sex practices discussed during office visit today. Call if any abnormal gynecologic issues during the next year, otherwise, RTC yearly or prn. Arthritis- occasionally uncontrolled symptoms- recommend pt to take antiinflammatory as directed for pain control.Use tylenol for break through pain symptoms.Aleve- do not take more than two times daily. 10/31/2011 Appointment: Kim Walker WPtel: [facility] [place] [facility] [place] [address] Well Woman 10/31/2011 Patient Education: Patient Medication Summary Completed 10/31/2011 Visit Plan: Arthritis- occasionally unc ontrolled symptoms- recommend pt to take antiinflammatory as directed for pain control.Use tylenol for break through pain symptoms.Follow the Gout dietUse the VOLTAREN GEL FOUR TIMES DAILY.CALL IF THENTOE DOES NOT IMPROVE. Insomnia - Pt has been advised to increase the light in the house during the day, and start dimming the lights during the evening hours.Pt has been advised to cut out caffiene after 5pm.Daytime napping worsens night time insomnia. 10/13/2011 Appointment: Kim Walker WPtel: [facility] [place] [facility] [place] [address] New Patient 10/13/2011 Patient Education: Patient Medication Summary Completed 10/13/2011 Patient Education: Gout Completed 10/13/2011 Patient Education: Gout: Related Topics Completed 10/13/2011 Instructions Comment . Afib-converted to NSR by Dr Solorzano-on [...] symptoms. Patient verbalized understanding of plan. . Arthritis- occasi onally uncontrolled symptoms- recommend pt to take antiinflammatory as directed for pain control. Use tylenol for break through pain symptoms.Start mobic daily Leg length discrepency - recommended pt to place: dr gilliland inserts- 2 in the left shoe
--- OUTSIDE RECORDS SUMMARY | 2019-12-04 07:03 | XMS REPORT | CCD ---
Author Author Linda Walker Organization Kim Walker MD, [facility] Address [address] [place] [address] Phone Care Team Providers Care Medical Support Specialist Name Role Phone PP Unavailable CCM Unavailable Summary Purpose Interface Exchange Insurance Providers Payer name Policy type / Coverage type Covered libertarian ID Effective Begin Date Effective End Date [employer] [id number] 2016 Unknown [place] [employer] [id number] 2016 Unknown Family history Mother Diagnosis Age At Onset Breast cancer Unknown Brother Diagnosis Age At Onset Arthritis Unknown Grandson Diagnosis Age At Onset Diabetes Unknown Social History Social History Element Codes Description Effective Dates Tobacco history SNOMED CT: 1598653 Former smoker quit 03/201301/22/2014 Employment Unknown Retir [...] Fill Instructions Eliquis 5 mg tablet RxNorm: 7584801 1 Tablet(s) PO BID 11/09/2016 01/07/2017 Active Eliquis 5 mg tablet RxNorm: 3489874 1 Tablet(s) PO BID 11/09/2016 11/08/2016 Inactive Cartia XT 180 mg cap clifford,extended release RxNorm: 659504 1 Capsule(s) PO QHS 11/08/2016 05/06/2017 Ac tive Prozac 40 mg capsule RxNorm: 714618 TAKE ONE CAPSULE BY MOUTH ONCE DAILY 11/07/2016 02/04/2017 Ac tive Phenergan with Codei ne Syrup RxNorm: 2.5 Milliliter(s) PO QHS as needed 10/28/2016 No Stop Date Active levofloxacin 500 mg tablet RxNorm: 212185 1 Tablet(s) PO daily 10/28/2016 11/06/2016 Inactive Prozac 40 mg capsule RxNorm: 709123 TAKE ONE CAPSULE BY MOUTH ONCE DAILY 08/01/2016 10/29/2016 In active Prozac 40 mg capsule RxNorm: 679460 1 Capsule(s) PO daily 11/05/2015 05/02/2016 Inactive [SAVINGS FOR UNINSURED PATIENTS -- BIN:0 24840, PCN: [id number], Group: [id number], ID# [id number], Process claim through [employer], for questions: . THIS IS NOT INSURANCE.] Xanax 0.25 mg tablet RxNorm: 050756 1/2 - 1 Tablet(s) PO QID as needed anxie ty attack 11/02/2015 01/30/2016 Inactive Prozac 40 mg capsule RxNorm: 078502 Capsule(s) TAKE ONE CAPSULE BY MOUTH ONC E DAILY 08/12/2015 08/11/2015 Inactive NEEDS APPT Prozac 40 mg capsule RxNorm: 673526 TAKE ONE CAPSULE BY MOUTH ONCE DAILY 08/12/2015 07/31/2016 In active hydrocortisone aceta te 25 mg rectal suppository RxNorm: 6673896 1 Suppository RTL QH S 10/02/2014 No Stop Date Active daily HS x 1 week, then twice weekly the n as needed Prozac 40 mg capsule RxNorm: 073799 TAKE ONE CAPSULE BY MOUTH ONCE DAILY 07/31/2014 01/26/2015 In active Prozac 40 mg capsule RxNorm: 203784 1 Capsule(s) PO daily 07/30/2014 02/24/2015 Inactive [SAVINGS FOR NON-COVERED DRUGS -- BIN:00 3585, PCN: [id number], Group: XXXXX, ID# [id number], Questions: . THIS IS NOT INSURANCE.] Xanax 0.25 mg tablet RxNorm: 892945 1/2 - 1 Tablet(s) PO QID as needed anxie ty attack 01/22/2014 03/22/2014 Inactive Prozac 40 mg capsule RxNorm: 515421 1 Capsule(s) PO daily 01/22/2014 07/20/2014 Inactive [SAVINGS FOR UNINSURED PATIENTS -- BIN:0 52344, PCN: ASPROD1, Group: [id number], ID# [id number], Process claim through [employer], for questions: . THIS IS NOT INSURANCE.] Prozac 20 mg capsule RxNorm: 343023 1 Capsule(s) PO daily 08/08/2013 01/21/2014 Inactive Prozac 20 mg capsule RxNorm: 460148 1 Capsule(s) PO daily 07/19/2013 08/07/2013 Inactive Prozac 20 mg capsule RxNorm: 240419 1 Capsule(s) PO daily 02/12/2013 07/18/2013 Inactive Influenza Virus Vacc ine 0.5 mL RxNorm: IM 02/16/2012 02/16/2012 Inactive meloxicam 7.5 mg tablet RxNorm: 229309 1 Tablet(s) PO BID ONE PILL IN MORNING, IF PAIN IS UNCONTROLLED, MAY TAKE ONE EXTRA PILL IN THe PM do not take with ibuprofen or aleve 01/24/2012 02/15/2012 Inactive melatonin 3 mg Tab RxNorm: 733019 2 Tablet(s) PO QHS No Start Date Active Calcium 600 + D(3) 6 00 mg (1,500 mg)-400 unit Tab RxNorm: 714065 1 Tablet(s) PO QPM No Start Date Active Fish Oil 360 mg-1,20 0 mg capsule,delayed release RxNorm: 1 Capsule(s) PO daily No Start Date Active Breo Ellipta inhalation RxNorm: 9059989 inhalation No Start Date Active Prozac 20 mg capsule RxNorm: 696244 1 Capsule(s) PO daily No Start Date 02/11/2013 Inactive fenofibrate nanocrys tallized 145 mg tablet RxNorm: 953432 Tablet(s) PO daily No Start Date 10/31/2016 Inactive Centrum Silver Ultra Women's Tab RxNorm: 1 Tablet(s) PO QHS No Start Date 10/31/2016 Inactive Cartia XT 120 mg cap clifford,extended release RxNorm: 020054 1 Capsule(s) PO QHS No Start Date [...] atrial fibrillation ICD-1 0: I48.0 ICD-9: 427.31 11/08/2016 Pneumonia, unspecified organism ICD- 10: J18.9 ICD-9: 486 11/08/2016 Cough ICD-10: R05 ICD-9: 786.2 11/01/2016 Generalized anxiety disorder ICD-10: F41.1 ICD-9: 300.02 11/05/2015 Rectal bleeding ICD-9: 569.3 10/02/2014 Depression ICD-9: 311 Anxiety, generalized ICD-9: 300.02 01/22/2014 Bloody feces ICD-9: 578.1 02/07/2013 OSTEOARTH NOS-UNSPEC ICD-9: 715.90 02/16/2012 VACCIN FOR INFLUENZA ICD-9: V04.81 02/16/2012 MUSCLE/LIGAMENT DIS NEC ICD-9: 728.89 02/16/2012 PAIN IN LIMB ICD-9: 729.5 01/24/2012 ROUTINE GYNE EXAM ICD-9: V72.31 10/31/2011 INSOMNIA NOS ICD-9: 780.52 10/13/2011 Reason For Visit Reason For Visit Effective Dates Notes cough 11/08/2016 Urgent Care = pneumonia cough [...] NON-HD L CH 144 MG/DL 01/23/2014 TSH 3590623 TSH 1.784 uIU/ML 01/23/2014 CBC 1801869 WBC 4.7 10e9/L 01/23/2014 CBC 3571635 RBC 4.10 10e12/L 01/23/2014 CBC 9384104 HGB 13.3 g/dL 01/23/2014 CBC 4769048 HCT DET 39.2 % 01/23/2014 CBC 3067867 MCV 95.6 fL 01/23/2014 CBC 1996528 MCH 32.4 pg 01/23/2014 CBC 7558280 MCHC 33.9 g/dL 01/23/2014 CBC 2878277 PLT 232 10e9/L 01/23/2014 CBC 6407739 MPV 10.9 fL 01/23/2014 CBC 8058892 DORON % 57.4 % 01/23/2014 CBC 4636723 LY % 28.0 % 01/23/2014 CBC 4249441 MON % 12.9 % 01/23/2014 CBC 9987844 EOS % 1.3 % 01/23/2014 CBC 3950022 BASO % 0.4 % 01/23/2014 CBC 6594672 RDW 12.1 % 01/23/2014 CBC 1899076 ABS DORON 2.70 10e9/L 01/23/2014 CBC 2547133 ABS LYMPH 1.32 10e9/L 01/23/2014 CBC 8894873 ABS MONO 0.61 10e9/L 01/23/2014 CBC 9538713 ABS EOS 0.06 10e9/L 01/23/2014 CBC 4005584 ABS BASO 0.02 10e9/L 01/23/2014 CBC 6980530 RDW-SD 41.2 fL 01/23/2014 CHEM 14 20271201 AST 18 U/L 01/23/2014 CHEM 14 20271201 ALT 13 IU/L 01/23/2014 CHEM 14 9708856 BUN 16 MG/DL 01/23/2014 CHEM 14 0735578 ALBUMIN 4.2 GM/DL 01/23/2014 CHEM 14 7401862 CHLORIDE 105 MMOL/L 01/23/2014 CHEM 14 0531250 BILI TOT 0.7 MG/DL 01/23/2014 CHEM 14 2524889 ALK PHOS 61 U/L 01/23/2014 CHEM 14 2632089 SODIUM 138 MMOL/L 01/23/2014 CHEM 14 4738465 CREATINI NE 0.65 MG/DL 01/23/2014 CHEM 14 7359524 CALCIUM 9.5 MG/DL 01/23/2014 CHEM 14 2344926 POTASSIUM 4.4 MMOL/L 01/23/2014 CHEM 14 7687073 PROT TOT 6.8 GM/DL 01/23/2014 CHEM 14 5195433 GLUCOSE 93 MG/DL 01/23/2014 CHEM 14 5656868 BICARB 28 MMOL/L 01/23/2014 CHEM 14 3321346 ANION GAP 5 MEQ/L 01/23/2014 GFR CALC 7986685 GFR AA >60 ML/MIN 01/23/2014 GFR CALC 1477768 GFR NON -AA >60 ML/MIN 01/23/2014 URIC ACID 5335779 URIC A KYLE 5.7 MG/DL 10/13/2011 CHEM 14 3339859 AST 19 U/L 10/13/2011 CHEM 14 8495489 ALT 16 U/L 10/13/2011 CHEM 14 2380233 BUN 21 MG/DL 10/13/2011 CHEM 14 4973223 ALBUMIN 4.2 GM/DL 10/13/2011 CHEM 14 9122704 CHLORIDE 103 MMOL/L 10/13/2011 CHEM 14 8456806 BILI TOT 0.6 MG/DL 10/13/2011 CHEM 14 9563612 ALK PHOS 71 U/L 10/13/2011 CHEM 14 0888151 SODIUM 141 MMOL/L 10/13/2011 CHEM 14 3881070 CREATINI NE 0.65 MG/DL 10/13/2011 CHEM 14 4621666 CALCIUM 9.3 MG/DL 10/13/2011 CHEM 14 4666663 POTASSIUM 4.2 MMOL/L 10/13/2011 CHEM 14 4533320 PROT TOT 6.8 GM/DL 10/13/2011 CHEM 14 5191122 GLUCOSE 69 MG/DL 10/13/2011 CHEM 14 8234515 BICARB 27 MMOL/L 10/13/2011 CHEM 14 4977826 ANION GAP 11 MMOL/L 10/13/2011 CBC 8715359 WBC 6.1 10e9/L 10/13/2011 CBC 3734946 RBC 4.11 10e12/L 10/13/2011 CBC 5187225 HGB 13.3 g/dL 10/13/2011 CBC 3943166 HCT DET 39.6 % 10/13/2011 CBC 4185828 MCV 96.4 fL 10/13/2011 CBC 3027335 MCH 32.4 pg 10/13/2011 CBC 0508329 MCHC 33.6 g/dL 10/13/2011 CBC 5430603 PLT 238 10e9/L 10/13/2011 CBC 6874588 MPV 11.7 fL 10/13/2011 CBC 8153090 DORON % 50.2 % 10/13/2011 CBC 2744650 LY % 35.6 % 10/13/2011 CBC 4747783 MON % 12.7 % 10/13/2011 CBC 9807369 EOS % 1.2 % 10/13/2011 CBC 3438952 BASO % 0.3 % 10/13/2011 CBC 6301566 RDW 12.3 % 10/13/2011 CBC 8578357 ABS DORON 3.06 10e9/L 10/13/2011 CBC 9099484 ABS LYMPH 2.17 10e9/L 10/13/2011 CBC 7166943 ABS MONO 0.77 10e9/L 10/13/2011 CBC 7809687 ABS EOS 0.07 10e9/L 10/13/2011 CBC 1032571 ABS BASO 0.02 10e9/L 10/13/2011 CBC 3933508 RDW-SD 42.3 fL 10/13/2011 GFR CALC 1484835 GFR AA >60 ML/MIN 10/13/2011 GFR CALC 3157661 GFR NON -AA >60 ML/MIN 10/13/2011 ESR 7715177 ESR 14 MM/HR 10/13/2011 Review of Systems System Result Effective Dates Constitutional recent illness 11/08/2016 Constitutional No anorexia [...] Date ADMIN INFLUENZA VIRU S VAC CPT-4: L0670Eggkmmq 02/16/2012 FLULAVAL VACC, 3 YRS & >, IM CPT-4: L0414Mggjgzq 02/16/2012 PRESCRIP TRANSMIT A ERX SY CPT-4: L5135Mqwngys 01/24/2012 ROUTINE VENIPUNCTURE CPT-4: 02558Lxkovlm 10/13/2011 Vital Signs Date Vital 11/08/2016 Blood Pressure 1: 136/82 Code: 8480-6 Heart Rate 1: 113 bpm Height: 5' SpO2: 95% Temperature: 36.9 (C ) / 98.4 (F) 11/01/2016 Blood Pressure 1: 136/78 Code: 8480-6 Heart Rate 1: 105 bpm SpO2: 98% Weight: 137 lbs 8 oz 11/05/2015 Blood Pressure 1: 118/74 Code: 8480-6 BMI: 25.7 Code: 21222-6 Heart Rate 1: 64 bpm Height: 5' SpO2: 98% Weight: 134 lbs 10/02/2014 Blood Pressure 1: 136/88 Code: 8480-6 BMI: 25.9 Code: 00115-8 Heart Rate 1: 68 bpm Height: 5' SpO2: 98% Weight: 135 lbs 01/22/2014 Blood Pressure 1: 122/64 Code: 8480-6 BMI: 25.7 Code: 04825-2 Heart Rate 1: 72 bpm Height: 5' Weight: 134 lbs 02/07/2013 Blood Pressure 1: 140/80 Code: 8480-6 BMI: 23.6 Code: 05081-1 Height: 5' Weight: 123 lbs 02/16/2012 Blood Pressure 1: 102/68 Code: 8480-6 Heart Rate 1: 68 bpm Respiratory Rate: 18 bpm Weight: 131 lbs 01/24/2012 Blood Pressure 1: 120/72 Code: 8480-6 Heart Rate 1: 72 bpm Respiratory Rate: 16 bpm Weight: 133 lbs 10/31/2011 Blood Pressure 1: 136/84 Code: 8480-6 BMI: 23.2 Code: 29734-7 Heart Rate 1: 74 bpm Height: 5'2" Respiratory Rate: 16 bpm Weight: 127 lbs 10/13/2011 Blood Pressure 1: 138/84 Code: 8480-6 BMI: 23.2 Code: 39060-6 Heart Rate 1: 80 bpm Height: 5'2" Respiratory Rate: 16 bpm Weight: 127 lbs Functional Status No Functional Status data History of Present Illness Symptom Name Status Resu lt Effective Date Notes cough Location in the [facility] 11/08/2016 None cough Quality acute 11/08/2016 None [...] ection 11/08/2016 None Hospital Follow Up _ e [facility] 11/08/2016 None Hospital Follow Up Quality acute illness 11/08/2016 None Hospital Follow Up Pertinent Findings Other: cough 11/08/2016 None Hospital Follow Up _ inf ection 11/01/2016 None Hospital Follow Up _ [facility] 11/01/2016 None Hospital Follow Up Quality [...] Quality blee ding 02/07/2013 None hemorrhoids 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 P ATIENT, LEVEL IV Diagnosis: Paroxysmal atrial fibrillation[ICD10: I48.0] Diagnosis: Pneumonia, unspecified organism[ICD10: J18.9] Jennifer Walker MD, [facility] CPT-4: 65483 11/08/2016 ([id number]) 54850 EST. P ATIENT, LEVEL III Diagnosis: Cough[ICD10: R05] Diagnosis: Pneumonia, unspecified organism[ICD10: J18.9] Jennifer Walker MD, [facility] CPT-4: 82987 11/01/2016 ([id number]) 12268 EST. P ATIENT, LEVEL III Diagnosis: Generalized anxiety disorder[ICD10: F41.1] Jennifer Walker MD, [facility] CPT-4: 01600 11/05/2015 ([id number]) 33777 EST. P ATIENT, LEVEL III Diagnosis: Rectal bleeding[ICD9: 569.3] Jennifer Walker MD, [facility] CPT- 4: 72465 10/02/2014 ([id number]) 25125 EST. P ATIENT, LEVEL III Diagnosis: Anxiety, generalized[ICD9: 300.02] Diagnosis: Depression[ICD9: 311] Kim Walker MD, [facility] CPT-4: 62625 01/22/2014 ([id number]) 76353 EST. P ATIENT, LEVEL III Diagnosis: Bloody feces[ICD9: 578.1] Kim Walker MD, [facility] CPT-4: 58698 02/07/2013 ([id number]) 86302 EST. P ATIENT, LEVEL III Diagnosis: OSTEOARTH NOS-UNSPEC[ICD9: 715.90] Diagnosis: MUSCLE/LIGAMENT DIS NEC[ICD9: 728.89] [facility] CPT-4: 92444 02/16/2012 ([id number]) 88572 EST. P ATIENT, LEVEL III Diagnosis: Iliotibial band syndrome[ICD9: 728.89] Diagnosis: OSTEOARTH NOS-UNSPEC[ICD9: 715.90] Diagnosis: PAIN IN LIMB[ICD9: 729.5] Kim Walker MD, [facility] CPT-4: 49290 01/24/2012 ([id number]) 31587 EST. P ATIENT, LEVEL IV Diagnosis: OSTEOARTH NOS-UNSPEC[ICD9: 715.90] Diagnosis: ROUTINE GYNE EXAM[ICD9: V72.31] [facility] CPT-4: 76814 10/31/2011 OFFICE VISIT, NEW - LEVEL 4 Diagnosis: Osteoarthritis[ICD9: 715.90] Diagnosis: INSOMNIA NOS[ICD9: 780.52] Diagnosis: PAIN IN LIMB[ICD9: 729.5] [facility] CPT-4: 54929 10/13/2011 Plan of Care Planned Activity Notes C odes Status Date Visit Plan: Afib-ordered EKG to confirm- increase cartia for heart rate control and start eliquis 5mg twice daily-follow up with Dr Jeanine Ying-finished abx-no further treatment indicated 11/08/2016 Appointment: Jennifer Vera WPtel: [address] [place] [address] (30 min) Complex 11/08/2016 Patient Education: Patient Medication Summary Completed 11/08/2016 Visit Plan: Pneumonia-on abx per urgent- continue current treatment and follow up in 1 week to ensure resolution of symptoms. Call sooner for worsening or new symptoms. Patient verbalized understanding of plan. 11/01/2016 Appointment: Jennifer Vera WPtel: [address] [place], [place] [phone] (15 min) Moderate 11/01/2016 Patient Education: Patient [...] current medications. 11/05/2015 Appointment: Jennifer Vera WPtel: [address] [place], [place] [phone] (15 min) Moderate 11/05/2015 Patient Education: Patient [...] panic attacks 01/22/2014 Appointment: Kim Walker WPtel: [address] [place], [place] [phone] Sick 01/22/2014 Patient Education: Patient Medication Summary Completed 01/22/2014 Care Plan: COMPLETE CBC AUTOMATED LOINC : 35802-7 Ordered 01/22/2014 Visit Plan: Blood in stool [...] work up. 02/07/2013 Appointment: Kim Walker WPtel: [address] [place], [place] [phone] Follow up 02/07/2013 Patient Education: Patient Medication Summary Completed 02/07/2013 Visit Plan: Arthritis- occasionally unc ontrolled symptoms- recommend pt to take antiinflammatory as directed for pain control.Use tylenol for break through pain symptoms.Start mobic dailyLeg length discrepency - recommended pt to place: dr gilliland inserts- 2 in the left shoe 02/16/2012 Appointment: Kim Walker WPtel: [facility] Follow up 02/16/2012 Patient Education: [...] for re-eval. 01/24/2012 Appointment: Kim Walker WPtel: [facility] [address] Other 01/24/2012 Patient Education: Patient Medication Summary [...] times daily. 10/31/2011 Appointment: Kim Walker WPtel: [facility] [facility] 10/31/2011 Patient Education: Patient Medication [...] time insomnia. 10/13/2011 Appointment: Kim Walker WPtel: [address] [place], [place] [phone] [place] New Patient 10/13/2011 Patient Education: Patient Medication Summary Completed 10/13/2011 Patient Education: Gout Completed 10/13/2011 Patient Education: Gout: Related Topics Completed 10/13/2011 Instructions Comment . Blood in stool - p t [...]
--- OUTSIDE RECORDS SUMMARY | 2019-12-04 07:03 | XMS REPORT | CCD ---
Author Author Linda Walker Organization Kim Walker MD, [facility] Address [address] [place] [address] Phone Care Team Providers Care Miller Supervisor Name Role Phone PP Unavailable CCM Unavailable Summary Purpose Interface Exchange Insurance Providers Payer name Policy type / Coverage type Covered libertarian ID Effective Begin Date Effective End Date RACHEL GBA [id number] 2016 Unknown [employer] [id number] 2016 Unknown Family history Mother Diagnosis Age At Onset Breast cancer Unknown Brother Diagnosis Age At Onset Arthritis Unknown Grandson Diagnosis Age At Onset Diabetes Unknown Social History Social History Element Codes Description Effective Dates Tobacco history SNOMED CT: 5843431 Former smoker quit 03/201301/22/2014 Employment Unknown Retir [...] Fill Instructions Eliquis 5 mg tablet RxNorm: 3196690 1 Tablet(s) PO BID 11/09/2016 12/05/2016 Inactive Eliquis 5 mg tablet RxNorm: 8430816 1 Tablet(s) PO BID 11/09/2016 11/08/2016 Inactive Cartia XT 180 mg cap clifford,extended release RxNorm: 299898 1 Capsule(s) PO QHS 11/08/2016 05/06/2017 Ac tive Prozac 40 mg capsule RxNorm: 962140 TAKE ONE CAPSULE BY MOUTH ONCE DAILY 11/07/2016 02/04/2017 Ac tive Phenergan with Codei ne Syrup RxNorm: 2.5 Milliliter(s) PO QHS as needed 10/28/2016 No Stop Date Active levofloxacin 500 mg tablet RxNorm: 655896 1 Tablet(s) PO daily 10/28/2016 11/06/2016 Inactive Prozac 40 mg capsule RxNorm: 698514 TAKE ONE CAPSULE BY MOUTH ONCE DAILY 08/01/2016 10/29/2016 In active Prozac 40 mg capsule RxNorm: 754908 1 Capsule(s) PO daily 11/05/2015 05/02/2016 Inactive [SAVINGS FOR UNINSURED PATIENTS -- BIN:0 38753, PCN: [id number], Group: [id number], ID# [id number], Process claim through iOpener, for questions: . THIS IS NOT INSURANCE.] Xanax 0.25 mg tablet RxNorm: 707790 1/2 - 1 Tablet(s) PO QID as needed anxie ty attack 11/02/2015 01/30/2016 Inactive Prozac 40 mg capsule RxNorm: 161288 Capsule(s) TAKE ONE CAPSULE BY MOUTH ONC E DAILY 08/12/2015 08/11/2015 Inactive NEEDS APPT Prozac 40 mg capsule RxNorm: 028961 TAKE ONE CAPSULE BY MOUTH ONCE DAILY 08/12/2015 07/31/2016 In active hydrocortisone aceta te 25 mg rectal suppository RxNorm: 1820489 1 Suppository RTL QH S 10/02/2014 No Stop Date Active daily HS x 1 week, then twice weekly the n as needed Prozac 40 mg capsule RxNorm: 910103 TAKE ONE CAPSULE BY MOUTH ONCE DAILY 07/31/2014 01/26/2015 In active Prozac 40 mg capsule RxNorm: 375103 1 Capsule(s) PO daily 07/30/2014 02/24/2015 Inactive [SAVINGS FOR NON-COVERED DRUGS -- BIN:00 3585, PCN: [id number], Group: XXXXX, ID# [id number], Questions: . THIS IS NOT INSURANCE.] Xanax 0.25 mg tablet RxNorm: 428783 1/2 - 1 Tablet(s) PO QID as needed anxie ty attack 01/22/2014 03/22/2014 Inactive Prozac 40 mg capsule RxNorm: 480222 1 Capsule(s) PO daily 01/22/2014 07/20/2014 Inactive [SAVINGS FOR UNINSURED PATIENTS -- BIN:0 95764, PCN: [id number], Group: [id number], ID# [id number], Process claim through iOpener, for questions: . THIS IS NOT INSURANCE.] Prozac 20 mg capsule RxNorm: 066627 1 Capsule(s) PO daily 08/08/2013 01/21/2014 Inactive Prozac 20 mg capsule RxNorm: 017750 1 Capsule(s) PO daily 07/19/2013 08/07/2013 Inactive Prozac 20 mg capsule RxNorm: 578245 1 Capsule(s) PO daily 02/12/2013 07/18/2013 Inactive Influenza Virus Vacc ine 0.5 mL RxNorm: IM 02/16/2012 02/16/2012 Inactive meloxicam 7.5 mg tablet RxNorm: 848725 1 Tablet(s) PO BID ONE PILL IN MORNING, IF PAIN IS UNCONTROLLED, MAY TAKE ONE EXTRA PILL IN THe PM do not take with ibuprofen or aleve 01/24/2012 02/15/2012 Inactive melatonin 3 mg Tab RxNorm: 474261 2 Tablet(s) PO QHS No Start Date Active Xarelto 20 mg tablet RxNorm: 4001292 1 Tablet(s) PO QPM No Start Date Active Calcium 600 + D(3) 6 00 mg (1,500 mg)-400 unit Tab RxNorm: 239679 1 Tablet(s) PO QPM No Start Date Active Fish Oil 360 mg-1,20 0 mg capsule,delayed release RxNorm: 1 Capsule(s) PO daily No Start Date Active Breo Ellipta inhalation RxNorm: 0754271 inhalation No Start Date Active Prozac 20 mg capsule RxNorm: 551063 1 Capsule(s) PO daily No Start Date 02/11/2013 Inactive fenofibrate nanocrys tallized 145 mg tablet RxNorm: 163252 Tablet(s) PO daily No Start Date 10/31/2016 Inactive Centrum Silver Ultra Women's Tab RxNorm: 1 Tablet(s) PO QHS No Start Date 10/31/2016 Inactive Cartia XT 120 mg cap clifford,extended release RxNorm: 616507 1 Capsule(s) PO QHS No Start Date [...] NON-HD L CH 144 MG/DL 01/23/2014 TSH 9426510 TSH 1.784 uIU/ML 01/23/2014 CBC 8742488 WBC 4.7 10e9/L 01/23/2014 CBC 6589067 RBC 4.10 10e12/L 01/23/2014 CBC 3307462 HGB 13.3 g/dL 01/23/2014 CBC 5425273 HCT DET 39.2 % 01/23/2014 CBC 2905250 MCV 95.6 fL 01/23/2014 CBC 2033568 MCH 32.4 pg 01/23/2014 CBC 2577724 MCHC 33.9 g/dL 01/23/2014 CBC 8749934 PLT 232 10e9/L 01/23/2014 CBC 6254884 MPV 10.9 fL 01/23/2014 CBC 0556963 DORON % 57.4 % 01/23/2014 CBC 8179072 LY % 28.0 % 01/23/2014 CBC 7204581 MON % 12.9 % 01/23/2014 CBC 2197257 EOS % 1.3 % 01/23/2014 CBC 9067450 BASO % 0.4 % 01/23/2014 CBC 3946415 RDW 12.1 % 01/23/2014 CBC 5291265 ABS DORON 2.70 10e9/L 01/23/2014 CBC 9631508 ABS LYMPH 1.32 10e9/L 01/23/2014 CBC 6796354 ABS MONO 0.61 10e9/L 01/23/2014 CBC 0102811 ABS EOS 0.06 10e9/L 01/23/2014 CBC 4393381 ABS BASO 0.02 10e9/L 01/23/2014 CBC 8041765 RDW-SD 41.2 fL 01/23/2014 CHEM 14 9729498 AST 18 U/L 01/23/2014 CHEM 14 8086008 ALT 13 IU/L 01/23/2014 CHEM 14 7236856 BUN 16 MG/DL 01/23/2014 CHEM 14 9898942 ALBUMIN 4.2 GM/DL 01/23/2014 CHEM 14 5993818 CHLORIDE 105 MMOL/L 01/23/2014 CHEM 14 0372778 BILI TOT 0.7 MG/DL 01/23/2014 CHEM 14 5841950 ALK PHOS 61 U/L 01/23/2014 CHEM 14 3737228 SODIUM 138 MMOL/L 01/23/2014 CHEM 14 6109520 CREATINI NE 0.65 MG/DL 01/23/2014 CHEM 14 5196545 CALCIUM 9.5 MG/DL 01/23/2014 CHEM 14 4400382 POTASSIUM 4.4 MMOL/L 01/23/2014 CHEM 14 0293081 PROT TOT 6.8 GM/DL 01/23/2014 CHEM 14 0809107 GLUCOSE 93 MG/DL 01/23/2014 CHEM 14 8452700 BICARB 28 MMOL/L 01/23/2014 CHEM 14 8570350 ANION GAP 5 MEQ/L 01/23/2014 GFR CALC 7182717 GFR AA >60 ML/MIN 01/23/2014 GFR CALC 4239712 GFR NON -AA >60 ML/MIN 01/23/2014 URIC ACID 0231489 URIC A KYLE 5.7 MG/DL 10/13/2011 CHEM 14 7194367 AST 19 U/L 10/13/2011 CHEM 14 7989302 ALT 16 U/L 10/13/2011 CHEM 14 7351819 BUN 21 MG/DL 10/13/2011 CHEM 14 1490568 ALBUMIN 4.2 GM/DL 10/13/2011 CHEM 14 8942770 CHLORIDE 103 MMOL/L 10/13/2011 CHEM 14 6908641 BILI TOT 0.6 MG/DL 10/13/2011 CHEM 14 1472305 ALK PHOS 71 U/L 10/13/2011 CHEM 14 7942506 SODIUM 141 MMOL/L 10/13/2011 CHEM 14 1049546 CREATINI NE 0.65 MG/DL 10/13/2011 CHEM 14 4452083 CALCIUM 9.3 MG/DL 10/13/2011 CHEM 14 7026457 POTASSIUM 4.2 MMOL/L 10/13/2011 CHEM 14 3832271 PROT TOT 6.8 GM/DL 10/13/2011 CHEM 14 2979179 GLUCOSE 69 MG/DL 10/13/2011 CHEM 14 2947401 BICARB 27 MMOL/L 10/13/2011 CHEM 14 2104900 ANION GAP 11 MMOL/L 10/13/2011 CBC 8597550 WBC 6.1 10e9/L 10/13/2011 CBC 0028647 RBC 4.11 10e12/L 10/13/2011 CBC 6186172 HGB 13.3 g/dL 10/13/2011 CBC 2616164 HCT DET 39.6 % 10/13/2011 CBC 7454943 MCV 96.4 fL 10/13/2011 CBC 4515502 MCH 32.4 pg 10/13/2011 CBC 5861565 MCHC 33.6 g/dL 10/13/2011 CBC 8288246 PLT 238 10e9/L 10/13/2011 CBC 3871356 MPV 11.7 fL 10/13/2011 CBC 8495886 DORON % 50.2 % 10/13/2011 CBC 8143075 LY % 35.6 % 10/13/2011 CBC 5586185 MON % 12.7 % 10/13/2011 CBC 9450970 EOS % 1.2 % 10/13/2011 CBC 7488037 BASO % 0.3 % 10/13/2011 CBC 4344219 RDW 12.3 % 10/13/2011 CBC 8929189 ABS DORON 3.06 10e9/L 10/13/2011 CBC 5779162 ABS LYMPH 2.17 10e9/L 10/13/2011 CBC 2383941 ABS MONO 0.77 10e9/L 10/13/2011 CBC 8822612 ABS EOS 0.07 10e9/L 10/13/2011 CBC 3719016 ABS BASO 0.02 10e9/L 10/13/2011 CBC 5925768 RDW-SD 42.3 fL 10/13/2011 GFR CALC 2894773 GFR AA >60 ML/MIN 10/13/2011 GFR CALC 9854964 GFR NON -AA >60 ML/MIN 10/13/2011 ESR 1477330 ESR 14 MM/HR 10/13/2011 Review of Systems [...] Date ADMIN INFLUENZA VIRU S VAC CPT-4: [id number] 02/16/2012 FLULAVAL VACC, 3 YRS & >, IM CPT-4: [id number] 02/16/2012 PRESCRIP TRANSMIT A ERX SY CPT-4: [id number] 01/24/2012 ROUTINE VENIPUNCTURE CPT-4: 02277Jdtjeqz 10/13/2011 Vital Signs Date Vital 12/06/2016 Blood Pressure 1: 146/82 Code: 8480-6 BMI: 26.8 Code: 07097-6 Heart Rate 1: 58 bpm Height: 5' [...] 1: 118/74 Code: 8480-6 BMI: 25.7 Code: 93984-4 Heart Rate 1: 64 bpm Height: 5' SpO2: 98% Weight: 134 lbs 10/02/2014 Blood Pressure 1: 136/88 Code: 8480-6 BMI: 25.9 Code: 59235-4 Heart Rate 1: 68 bpm Height: 5' SpO2: 98% Weight: 135 lbs 01/22/2014 Blood Pressure 1: 122/64 Code: 8480-6 BMI: 25.7 Code: 10292-7 Heart Rate 1: 72 bpm Height: 5' Weight: 134 lbs 02/07/2013 Blood Pressure 1: 140/80 Code: 8480-6 BMI: 23.6 Code: 86199-9 Height: 5' Weight: 123 lbs 02/16/2012 Blood Pressure 1: 102/68 Code: 8480-6 Heart Rate 1: 68 bpm Respiratory Rate: 18 bpm Weight: 131 lbs 01/24/2012 Blood Pressure 1: 120/72 Code: 8480-6 Heart Rate 1: 72 bpm Respiratory Rate: 16 bpm Weight: 133 lbs 10/31/2011 Blood Pressure 1: 136/84 Code: 8480-6 BMI: 23.2 Code: 73260-2 Heart Rate 1: 74 bpm Height: 5'2" Respiratory Rate: 16 bpm Weight: 127 lbs 10/13/2011 Blood Pressure 1: 138/84 Code: 8480-6 BMI: 23.2 Code: 23762-8 Heart Rate 1: 80 bpm Height: 5'2" [...] Quality blee ding 02/07/2013 None hemorrhoids Quality preparator holly 02/07/2013 None hemorrhoids Onset and Resolution [...] Encounters Encounter Performer Loca tion Codes Date ([id number]) 61630 EST. P ATIENT, LEVEL III Diagnosis: Paroxysmal atrial fibrillation[ICD10: I48.0] Jennifer Walker MD, [facility] CPT-4: 69978 12/06/2016 ([id number]) 44191 EST. P ATIENT, LEVEL IV Diagnosis: Paroxysmal atrial fibrillation[ICD10: I48.0] Diagnosis: Pneumonia, unspecified organism[ICD10: J18.9] Jennifer Walker MD, [facility] CPT-4: 62898 11/08/2016 ([id number]) 83516 EST. P ATIENT, LEVEL III Diagnosis: Cough[ICD10: R05] Diagnosis: Pneumonia, unspecified organism[ICD10: J18.9] Jennifer Walker MD, [facility] CPT-4: 81289 11/01/2016 ([id number]) 81642 EST. P ATIENT, LEVEL III Diagnosis: Generalized anxiety disorder[ICD10: F41.1] Jennifer Walker MD, [facility] CPT-4: 50378 11/05/2015 ([id number]) 58575 EST. P ATIENT, LEVEL III Diagnosis: Rectal bleeding[ICD9: 569.3] Jennifer Walker MD, [facility] CPT- 4: 30480 10/02/2014 ([id number]) 48814 EST. P ATIENT, LEVEL III Diagnosis: Anxiety, generalized[ICD9: 300.02] Diagnosis: Depression[ICD9: 311] Kim Walkre MD, [facility] CPT-4: 65513 01/22/2014 ([id number]) 53533 EST. P ATIENT, LEVEL III Diagnosis: Bloody feces[ICD9: 578.1] Kim Walker MD, [facility] CPT-4: 95976 02/07/2013 ([id number]) 12119 EST. P ATIENT, LEVEL III Diagnosis: OSTEOARTH NOS-UNSPEC[ICD9: 715.90] Diagnosis: MUSCLE/LIGAMENT DIS NEC[ICD9: 728.89] Kim Walker MD, [facility] CPT-4: 77329 02/16/2012 ([id number]) 92886 EST. P ATIENT, LEVEL III Diagnosis: Iliotibial band syndrome[ICD9: 728.89] Diagnosis: OSTEOARTH NOS-UNSPEC[ICD9: 715.90] Diagnosis: PAIN IN LIMB[ICD9: 729.5] [facility] CPT-4: 90422 01/24/2012 ([id number]) 67001 EST. P [facility], LEVEL IV Diagnosis: OSTEOARTH NOS-UNSPEC[ICD9: 715.90] Diagnosis: ROUTINE GYNE EXAM[ICD9: V72.31] [facility] CPT-4: 17224 10/31/2011 OFFICE VISIT, NEW - LEVEL 4 Diagnosis: Osteoarthritis[ICD9: 715.90] Diagnosis: INSOMNIA NOS[ICD9: 780.52] Diagnosis: PAIN IN LIMB[ICD9: 729.5] [facility] CPT-4: 46923 10/13/2011 Plan of Care Planned Activity Notes C odes Status Date Visit Plan: Afib-converted to NSR by Dr Solorzano-on xarelto-instructed patient to report if they start to feel as if their heart rate is becoming uncontrolled or other symptoms develop. Patient verbalized understanding. 12/06/2016 Patient Education: Patient Medication Summary Completed 12/06/2016 Visit Plan: Afib-ordered EKG to confirm- increase cartia for heart rate control and start eliquis 5mg twice daily-follow up with Dr Solorzano Pneumonia-finished abx-no further treatment indicated 11/08/2016 Appointment: Jennifer Vera WPtel: [address] [place], [place] [phone] (30 min) [facility] 11/08/2016 Patient Education: Patient Medication Summary Completed 11/08/2016 Visit Plan: Pneumonia-on abx per urgent- continue current treatment and follow up in 1 week to ensure resolution of symptoms. Call sooner for worsening or new symptoms. Patient verbalized understanding of plan. 11/01/2016 Appointment: Jennifer Vera WPtel: [address] [place], [place] [phone] (15 min) Moderate 11/01/2016 Patient Education: Patient [...] current medications. 11/05/2015 Appointment: Jennifer Vera WPtel: [phone] (15 min) Moderate 11/05/2015 Patient Education: Patient [...] panic attacks 01/22/2014 Appointment: Kim Walker WPtel: [facility] Sick 01/22/2014 Patient Education: Patient Medication Summary Completed 01/22/2014 Care Plan: COMPLETE CBC AUTOMATED LOINC : 53849-9 Ordered 01/22/2014 Visit Plan: Blood in stool [...] up. 02/07/2013 Appointment: Kim Walker WPtel: [phone] [facility] Follow up 02/07/2013 Patient Education: Patient Medication Summary Completed 02/07/2013 Visit Plan: Arthritis- occasionally unc ontrolled symptoms- recommend pt to take antiinflammatory as directed for pain control.Use tylenol for break through pain symptoms.Start mobic dailyLeg length discrepency - recommended pt to place: dr gilliland inserts- 2 in the left shoe 02/16/2012 Appointment: Kim Walker WPtel: [phone] [facility] Follow up 02/16/2012 Patient Education: Patient Medication [...] re-eval. 01/24/2012 [facility]ment[phone] [facility] [place] Other 01/24/2012 Patient Education: [...] daily. 10/31/2011 [phone] [facility] [facility] 10/31/2011 Patient Education: Patient Medication [...] time insomnia. 10/13/2011 [facility]ment[facility] [phone] [facility] [facility] 10/13/2011 Patient Education: Patient Medication [...]
--- OUTSIDE RECORDS SUMMARY | 2019-12-04 07:04 | XMS REPORT | CCD ---
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 Name Role Phone PP Unavailable CCM Unavailable Summary Purpose Interface Exchange Insurance Providers Payer name Policy type / Coverage type Covered green party ID Effective Begin Date Effective End Date [employer] [id number] 2016 Unknown [employer] [id number] 2016 Unknown Family history Mother Diagnosis Age At Onset Breast cancer Unknown Brother Diagnosis Age At Onset Arthritis Unknown Grandson Diagnosis Age At Onset Diabetes Unknown Social History Social History Element Codes Description Effective Dates Tobacco history SNOMED CT: 6689305 Former smoker quit 03/201301/22/2014 Employment Unknown Retir [...] Fill Instructions Eliquis 5 mg tablet RxNorm: 6924273 1 Tablet(s) PO BID 11/09/2016 01/07/2017 Active Eliquis 5 mg tablet RxNorm: 6125829 1 Tablet(s) PO BID 11/09/2016 11/08/2016 Inactive Cartia XT 180 mg cap clifford,extended release RxNorm: 378660 1 Capsule(s) PO QHS 11/08/2016 05/06/2017 Ac tive Prozac 40 mg capsule RxNorm: 441563 TAKE ONE CAPSULE BY MOUTH ONCE DAILY 11/07/2016 02/04/2017 Ac tive Phenergan with Codei ne Syrup RxNorm: 2.5 Milliliter(s) PO QHS as needed 10/28/2016 No Stop Date Active levofloxacin 500 mg tablet RxNorm: 129712 1 Tablet(s) PO daily 10/28/2016 11/06/2016 Inactive Prozac 40 mg capsule RxNorm: 903713 TAKE ONE CAPSULE BY MOUTH ONCE DAILY 08/01/2016 10/29/2016 In active Prozac 40 mg capsule RxNorm: 494295 1 Capsule(s) PO daily 11/05/2015 05/02/2016 Inactive [SAVINGS FOR UNINSURED PATIENTS -- BIN:0 20571, PCN: [id number], Group: [id number], ID# [id number], Process claim through [employer], for questions: . THIS IS NOT INSURANCE.] Xanax 0.25 mg tablet RxNorm: 858784 1/2 - 1 Tablet(s) PO QID as needed anxie ty attack 11/02/2015 01/30/2016 Inactive Prozac 40 mg capsule RxNorm: 596406 Capsule(s) TAKE ONE CAPSULE BY MOUTH ONC E DAILY 08/12/2015 08/11/2015 Inactive NEEDS APPT Prozac 40 mg capsule RxNorm: 980998 TAKE ONE CAPSULE BY MOUTH ONCE DAILY 08/12/2015 07/31/2016 In active hydrocortisone aceta te 25 mg rectal suppository RxNorm: 0163965 1 Suppository RTL QH S 10/02/2014 No Stop Date Active daily HS x 1 week, then twice weekly the n as needed Prozac 40 mg capsule RxNorm: 454739 TAKE ONE CAPSULE BY MOUTH ONCE DAILY 07/31/2014 01/26/2015 In active Prozac 40 mg capsule RxNorm: 680159 1 Capsule(s) PO daily 07/30/2014 02/24/2015 Inactive [SAVINGS FOR NON-COVERED DRUGS -- BIN:00 3585, PCN: [id number], Group: XXXXX, ID# [id number], Questions: . THIS IS NOT INSURANCE.] Xanax 0.25 mg tablet RxNorm: 549672 1/2 - 1 Tablet(s) PO QID as needed anxie ty attack 01/22/2014 03/22/2014 Inactive Prozac 40 mg capsule RxNorm: 238545 1 Capsule(s) PO daily 01/22/2014 07/20/2014 Inactive [SAVINGS FOR UNINSURED PATIENTS -- BIN:0 99430, PCN: [id number], Group: [id number], ID# [id number], Process claim through [employer], for questions: . THIS IS NOT INSURANCE.] Prozac 20 mg capsule RxNorm: 801928 1 Capsule(s) PO daily 08/08/2013 01/21/2014 Inactive Prozac 20 mg capsule RxNorm: 705512 1 Capsule(s) PO daily 07/19/2013 08/07/2013 Inactive Prozac 20 mg capsule RxNorm: 228468 1 Capsule(s) PO daily 02/12/2013 07/18/2013 Inactive Influenza Virus Vacc ine 0.5 mL RxNorm: IM 02/16/2012 02/16/2012 Inactive meloxicam 7.5 mg tablet RxNorm: 888437 1 Tablet(s) PO BID ONE PILL IN MORNING, IF PAIN IS UNCONTROLLED, MAY TAKE ONE EXTRA PILL IN THe PM do not take with ibuprofen or aleve 01/24/2012 02/15/2012 Inactive melatonin 3 mg Tab RxNorm: 609812 2 Tablet(s) PO QHS No Start Date Active Calcium 600 + D(3) 6 00 mg (1,500 mg)-400 unit Tab RxNorm: 947229 1 Tablet(s) PO QPM No Start Date Active Fish Oil 360 mg-1,20 0 mg capsule,delayed release RxNorm: 1 Capsule(s) PO daily No Start Date Active Breo Ellipta inhalation RxNorm: 2557928 inhalation No Start Date Active Prozac 20 mg capsule RxNorm: 821580 1 Capsule(s) PO daily No Start Date 02/11/2013 Inactive fenofibrate nanocrys tallized 145 mg tablet RxNorm: 965770 Tablet(s) PO daily No Start Date 10/31/2016 Inactive Centrum Silver Ultra Women's Tab RxNorm: 1 Tablet(s) PO QHS No Start Date 10/31/2016 Inactive Cartia XT 120 mg cap clifford,extended release RxNorm: 603567 1 Capsule(s) PO QHS No Start Date [...] NON-HD L CH 144 MG/DL 01/23/2014 TSH 2823107 TSH 1.784 uIU/ML 01/23/2014 CBC 6394177 WBC 4.7 10e9/L 01/23/2014 CBC 7859640 RBC 4.10 10e12/L 01/23/2014 CBC 5731186 HGB 13.3 g/dL 01/23/2014 CBC 1964078 HCT DET 39.2 % 01/23/2014 CBC 4714114 MCV 95.6 fL 01/23/2014 CBC 2450241 MCH 32.4 pg 01/23/2014 CBC 1493091 MCHC 33.9 g/dL 01/23/2014 CBC 6840427 PLT 232 10e9/L 01/23/2014 CBC 2118305 MPV 10.9 fL 01/23/2014 CBC 5189210 DORON % 57.4 % 01/23/2014 CBC 5264377 LY % 28.0 % 01/23/2014 CBC 9493847 MON % 12.9 % 01/23/2014 CBC 5448531 EOS % 1.3 % 01/23/2014 CBC 3169970 BASO % 0.4 % 01/23/2014 CBC 2920013 RDW 12.1 % 01/23/2014 CBC 3922280 ABS DORON 2.70 10e9/L 01/23/2014 CBC 8832249 ABS LYMPH 1.32 10e9/L 01/23/2014 CBC 9774996 ABS MONO 0.61 10e9/L 01/23/2014 CBC 7732130 ABS EOS 0.06 10e9/L 01/23/2014 CBC 6620767 ABS BASO 0.02 10e9/L 01/23/2014 CBC 3694507 RDW-SD 41.2 fL 01/23/2014 CHEM 14 20271201 AST 18 U/L 01/23/2014 CHEM 14 20271201 ALT 13 IU/L 01/23/2014 CHEM 14 4961932 BUN 16 MG/DL 01/23/2014 CHEM 14 9035645 ALBUMIN 4.2 GM/DL 01/23/2014 CHEM 14 8522969 CHLORIDE 105 MMOL/L 01/23/2014 CHEM 14 2975174 BILI TOT 0.7 MG/DL 01/23/2014 CHEM 14 1043699 ALK PHOS 61 U/L 01/23/2014 CHEM 14 4773620 SODIUM 138 MMOL/L 01/23/2014 CHEM 14 1979430 CREATINI NE 0.65 MG/DL 01/23/2014 CHEM 14 5870829 CALCIUM 9.5 MG/DL 01/23/2014 CHEM 14 9688820 POTASSIUM 4.4 MMOL/L 01/23/2014 CHEM 14 7618800 PROT TOT 6.8 GM/DL 01/23/2014 CHEM 14 1387175 GLUCOSE 93 MG/DL 01/23/2014 CHEM 14 3586755 BICARB 28 MMOL/L 01/23/2014 CHEM 14 6960837 ANION GAP 5 MEQ/L 01/23/2014 GFR CALC 6838917 GFR AA >60 ML/MIN 01/23/2014 GFR CALC 8598283 GFR NON -AA >60 ML/MIN 01/23/2014 URIC ACID 3665919 URIC A KYLE 5.7 MG/DL 10/13/2011 CHEM 14 3152688 AST 19 U/L 10/13/2011 CHEM 14 2360105 ALT 16 U/L 10/13/2011 CHEM 14 1352272 BUN 21 MG/DL 10/13/2011 CHEM 14 1206146 ALBUMIN 4.2 GM/DL 10/13/2011 CHEM 14 1203783 CHLORIDE 103 MMOL/L 10/13/2011 CHEM 14 9249839 BILI TOT 0.6 MG/DL 10/13/2011 CHEM 14 3644603 ALK PHOS 71 U/L 10/13/2011 CHEM 14 9497507 SODIUM 141 MMOL/L 10/13/2011 CHEM 14 2014696 CREATINI NE 0.65 MG/DL 10/13/2011 CHEM 14 0929588 CALCIUM 9.3 MG/DL 10/13/2011 CHEM 14 6670691 POTASSIUM 4.2 MMOL/L 10/13/2011 CHEM 14 9917559 PROT TOT 6.8 GM/DL 10/13/2011 CHEM 14 3805580 GLUCOSE 69 MG/DL 10/13/2011 CHEM 14 5747596 BICARB 27 MMOL/L 10/13/2011 CHEM 14 9890599 ANION GAP 11 MMOL/L 10/13/2011 CBC 1545512 WBC 6.1 10e9/L 10/13/2011 CBC 5414419 RBC 4.11 10e12/L 10/13/2011 CBC 3221167 HGB 13.3 g/dL 10/13/2011 CBC 0409421 HCT DET 39.6 % 10/13/2011 CBC 9944776 MCV 96.4 fL 10/13/2011 CBC 4206449 MCH 32.4 pg 10/13/2011 CBC 6998411 MCHC 33.6 g/dL 10/13/2011 CBC 7460656 PLT 238 10e9/L 10/13/2011 CBC 4660658 MPV 11.7 fL 10/13/2011 CBC 1906040 DORON % 50.2 % 10/13/2011 CBC 6366959 LY % 35.6 % 10/13/2011 CBC 7607203 MON % 12.7 % 10/13/2011 CBC 6709492 EOS % 1.2 % 10/13/2011 CBC 7430138 BASO % 0.3 % 10/13/2011 CBC 9786290 RDW 12.3 % 10/13/2011 CBC 1708472 ABS DORON 3.06 10e9/L 10/13/2011 CBC 1696229 ABS LYMPH 2.17 10e9/L 10/13/2011 CBC 1961125 ABS MONO 0.77 10e9/L 10/13/2011 CBC 4380279 ABS EOS 0.07 10e9/L 10/13/2011 CBC 4073033 ABS BASO 0.02 10e9/L 10/13/2011 CBC 0023622 RDW-SD 42.3 fL 10/13/2011 GFR CALC 1623396 GFR AA >60 ML/MIN 10/13/2011 GFR CALC 4583298 GFR NON -AA >60 ML/MIN 10/13/2011 ESR 5470354 ESR 14 MM/HR 10/13/2011 Review of Systems [...] Date ADMIN INFLUENZA VIRU S VAC CPT-4: [id number] 02/16/2012 FLULAVAL VACC, 3 YRS & >, IM CPT-4: [id number] 02/16/2012 PRESCRIP TRANSMIT A ERX SY CPT-4: R0300Iulolva 01/24/2012 ROUTINE VENIPUNCTURE CPT-4: [id number] 10/13/2011 Vital Signs Date Vital 11/08/2016 Blood Pressure 1: 136/82 Code: 8480-6 Heart Rate 1: 113 bpm Height: 5' SpO2: 95% Temperature: 36.9 (C ) / 98.4 (F) 11/01/2016 Blood Pressure 1: 136/78 Code: 8480-6 Heart Rate 1: 105 bpm SpO2: 98% Weight: 137 lbs 8 oz 11/05/2015 Blood Pressure 1: 118/74 Code: 8480-6 BMI: 25.7 Code: 91934-7 Heart Rate 1: 64 bpm Height: 5' SpO2: 98% Weight: 134 lbs 10/02/2014 Blood Pressure 1: 136/88 Code: 8480-6 BMI: 25.9 Code: 12168-3 Heart Rate 1: 68 bpm Height: 5' SpO2: 98% Weight: 135 lbs 01/22/2014 Blood Pressure 1: 122/64 Code: 8480-6 BMI: 25.7 Code: 45125-7 Heart Rate 1: 72 bpm Height: 5' Weight: 134 lbs 02/07/2013 Blood Pressure 1: 140/80 Code: 8480-6 BMI: 23.6 Code: 89556-7 Height: 5' Weight: 123 lbs 02/16/2012 Blood Pressure 1: 102/68 Code: 8480-6 Heart Rate 1: 68 bpm Respiratory Rate: 18 bpm Weight: 131 lbs 01/24/2012 Blood Pressure 1: 120/72 Code: 8480-6 Heart Rate 1: 72 bpm Respiratory Rate: 16 bpm Weight: 133 lbs 10/31/2011 Blood Pressure 1: 136/84 Code: 8480-6 BMI: 23.2 Code: 50028-9 Heart Rate 1: 74 bpm Height: 5'2" Respiratory Rate: 16 bpm Weight: 127 lbs 10/13/2011 Blood Pressure 1: 138/84 Code: 8480-6 BMI: 23.2 Code: 73042-9 Heart Rate 1: 80 bpm Height: 5'2" Respiratory Rate: 16 bpm Weight: 127 lbs Functional Status No Functional Status data History of Present Illness Symptom Name Status Resu lt Effective Date Notes cough Location in [facility] 11/08/2016 None cough Quality acute 11/08/2016 None [...] 11/08/2016 None Hospital Follow Up _ e [facility] 11/08/2016 None Hospital Follow Up Quality acute illness 11/08/2016 None Hospital Follow Up Pertinent Findings Other: cough 11/08/2016 None Hospital Follow Up _ inf ection 11/01/2016 None Hospital Follow Up _ pne [facility] 11/01/2016 None Hospital Follow Up [...] Quality blee ding 02/07/2013 None hemorrhoids Quality physical therapy [facility] 02/07/2013 None hemorrhoids Onset and Resolution [...] Encounters Encounter Performer Loca tion Codes Date ([id number]) 58233 EST. P ATIENT, LEVEL IV Diagnosis: Paroxysmal atrial fibrillation[ICD10: I48.0] Diagnosis: Pneumonia, unspecified organism[ICD10: J18.9] Jennifer Walker MD, [facility] CPT-4: 21956 11/08/2016 ([id number]) 96494 EST. P ATIENT, LEVEL III Diagnosis: Cough[ICD10: R05] Diagnosis: Pneumonia, unspecified organism[ICD10: J18.9] Jennifer Walker MD, [facility] CPT-4: 22791 11/01/2016 ([id number]) 85155 EST. P ATIENT, LEVEL III Diagnosis: Generalized anxiety disorder[ICD10: F41.1] Jennifer Walker MD, [facility] CPT-4: 87498 11/05/2015 ([id number]) 76263 EST. P ATIENT, LEVEL III Diagnosis: Rectal bleeding[ICD9: 569.3] Jennifer Walker MD, [facility] CPT- 4: 77171 10/02/2014 ([id number]) 28052 EST. P ATIENT, LEVEL III Diagnosis: Anxiety, generalized[ICD9: 300.02] Diagnosis: Depression[ICD9: 311] Kim Walker MD, [facility] CPT-4: 78086 01/22/2014 ([id number]) 79057 EST. P ATIENT, LEVEL III Diagnosis: Bloody feces[ICD9: 578.1] Kim Walker MD, [facility] CPT-4: 81652 02/07/2013 ([id number]) 72291 EST. P ATIENT, LEVEL III Diagnosis: OSTEOARTH NOS-UNSPEC[ICD9: 715.90] Diagnosis: MUSCLE/LIGAMENT DIS NEC[ICD9: 728.89] [facility] CPT-4: 20870 02/16/2012 ([id number]) 11679 EST. P ATIENT, LEVEL III Diagnosis: Iliotibial band syndrome[ICD9: 728.89] Diagnosis: OSTEOARTH NOS-UNSPEC[ICD9: 715.90] Diagnosis: PAIN IN LIMB[ICD9: 729.5] Kim Walker MD, [facility] CPT-4: 57295 01/24/2012 ([id number]) 10784 EST. P ATIENT, LEVEL IV Diagnosis: OSTEOARTH NOS-UNSPEC[ICD9: 715.90] Diagnosis: ROUTINE GYNE EXAM[ICD9: V72.31] [facility] CPT-4: 28157 10/31/2011 OFFICE VISIT, NEW - LEVEL 4 Diagnosis: Osteoarthritis[ICD9: 715.90] Diagnosis: INSOMNIA NOS[ICD9: 780.52] Diagnosis: PAIN IN LIMB[ICD9: 729.5] [facility] CPT-4: 93555 10/13/2011 Plan of Care Planned Activity Notes C odes Status Date Visit Plan: Afib-ordered EKG to confirm- increase cartia for heart rate control and start eliquis 5mg twice daily-follow up with Dr Jeanine Ying-finished abx-no further treatment indicated 11/08/2016 Appointment: Jennifer Vera WPtel: [address] [place] [address] (30 min) Complex 11/08/2016 Patient Education: Patient Medication Summary Completed 11/08/2016 Visit Plan: Pneumonia-on abx per urgent- continue current treatment and follow up in 1 week to ensure resolution of symptoms. Call sooner for worsening or new symptoms. Patient verbalized understanding of plan. 11/01/2016 Appointment: Jennifer Vera WPtel: [address] [place], [place] [phone] (15 min) Moderate 11/01/2016 Patient Education: Patient [...] current medications. 11/05/2015 Appointment: Jennifer Vera WPtel: [address] [place], [place] [phone] (15 min) Moderate 11/05/2015 Patient Education: Patient [...] panic attacks 01/22/2014 Appointment: Kim Walker WPtel: [address] [place], [place] [phone] Sick 01/22/2014 Patient Education: Patient Medication Summary Completed 01/22/2014 Care Plan: COMPLETE CBC AUTOMATED LOINC : 43726-9 Ordered 01/22/2014 Visit Plan: Blood in stool [...] work up. 02/07/2013 Appointment: Kim Walker WPtel: [address] [place], [place] [phone] Follow up 02/07/2013 Patient Education: Patient Medication Summary Completed 02/07/2013 Visit Plan: Arthritis- occasionally unc ontrolled symptoms- recommend pt to take antiinflammatory as directed for pain control.Use tylenol for break through pain symptoms.Start mobic dailyLeg length discrepency - recommended pt to place: dr gilliland inserts- 2 in the left shoe 02/16/2012 Appointment: Kim Walker WPtel: [facility] [id number] Follow up 02/16/2012 Patient Education: Patient Medication [...] for re-eval. 01/24/2012 Appointment: Kim Walker WPtel: [facility] [place] [address] Other 01/24/2012 Patient Education: Patient Medication [...] times daily. 10/31/2011 Appointment: Kim Walker WPtel: [facility] [place] [address] [facility] 10/31/2011 Patient Education: Patient [...] time insomnia. 10/13/2011 Appointment: Kim Walker WPtel: [address] [place], [place] [phone] [place] New Patient 10/13/2011 Patient Education: Patient [...]
--- OUTSIDE RECORDS SUMMARY | 2019-12-04 07:05 | XMS REPORT | CCD ---
Author Author Linda Walker Organization Kim Walker MD, [facility] Address [address] [place] [address] Phone Care Team Providers Care Carpenter Maintenance Name Role Phone PP Unavailable CCM Unavailable Summary Purpose Interface Exchange Insurance Providers Payer name Policy type / Coverage type Covered republican ID Effective Begin Date Effective End Date [employer] [id number] 2016 Unknown [place] [employer] [id number] 2016 Unknown Family history Mother Diagnosis Age At Onset Breast cancer Unknown Brother Diagnosis Age At Onset Arthritis Unknown Grandson Diagnosis Age At Onset Diabetes Unknown Social History Social History Element Codes Description Effective Dates Tobacco history SNOMED CT: 8413222 Former smoker quit 03/201301/22/2014 Employment Unknown Retir [...] ICD-9: 427.31 ICD-10: I48.0 Active 11/08/2016 Unknown Cough ICD-9: 786.2 ICD-10: R05 Active 11/01/2016 Unknown Pneumonia, unspecifi ed organism ICD-9: 486 ICD-10: J18.9 Active 11/01/2016 Unknown Generalized anxiety disorder ICD-9: [...] brillation ICD-9: 427.31 ICD-10: I48.0 11/08/2016 Active Cough ICD-9: 786.2 ICD-10: R05 11/01/2016 Active Pneumonia, unspecifi ed organism ICD-9: 486 ICD-10: J18.9 11/01/2016 Active Generalized anxiety disorder ICD-9: 300.02 [...] Fill Instructions Eliquis 5 mg tablet RxNorm: 3474881 1 Tablet(s) PO BID 11/09/2016 01/07/2017 Active Eliquis 5 mg tablet RxNorm: 2772924 1 Tablet(s) PO BID 11/09/2016 11/08/2016 Inactive Cartia XT 180 mg cap clifford,extended release RxNorm: 244767 1 Capsule(s) PO QHS 11/08/2016 05/06/2017 Ac tive Prozac 40 mg capsule RxNorm: 789080 TAKE ONE CAPSULE BY MOUTH ONCE DAILY 11/07/2016 02/04/2017 Ac tive Phenergan with Codei ne Syrup RxNorm: 2.5 Milliliter(s) PO QHS as needed 10/28/2016 No Stop Date Active levofloxacin 500 mg tablet RxNorm: 938516 1 Tablet(s) PO daily 10/28/2016 11/06/2016 Inactive Prozac 40 mg capsule RxNorm: 664492 TAKE ONE CAPSULE BY MOUTH ONCE DAILY 08/01/2016 10/29/2016 In active Prozac 40 mg capsule RxNorm: 685538 1 Capsule(s) PO daily 11/05/2015 05/02/2016 Inactive [SAVINGS FOR UNINSURED PATIENTS -- BIN:0 48845, PCN: [id number], Group: [id number], ID# [id number], Process claim through [employer], for questions: . THIS IS NOT INSURANCE.] Xanax 0.25 mg tablet RxNorm: 738593 1/2 - 1 Tablet(s) PO QID as needed anxie ty attack 11/02/2015 01/30/2016 Inactive Prozac 40 mg capsule RxNorm: 475633 Capsule(s) TAKE ONE CAPSULE BY MOUTH ONC E DAILY 08/12/2015 08/11/2015 Inactive NEEDS APPT Prozac 40 mg capsule RxNorm: 883745 TAKE ONE CAPSULE BY MOUTH ONCE DAILY 08/12/2015 07/31/2016 In active hydrocortisone aceta te 25 mg rectal suppository RxNorm: 9694158 1 Suppository RTL QH S 10/02/2014 No Stop Date Active daily HS x 1 week, then twice weekly the n as needed Prozac 40 mg capsule RxNorm: 003698 TAKE ONE CAPSULE BY MOUTH ONCE DAILY 07/31/2014 01/26/2015 In active Prozac 40 mg capsule RxNorm: 535359 1 Capsule(s) PO daily 07/30/2014 02/24/2015 Inactive [SAVINGS FOR NON-COVERED DRUGS -- BIN:00 3585, PCN: [id number], Group: XXXXX, ID# [id number], Questions: . THIS IS NOT INSURANCE.] Xanax 0.25 mg tablet RxNorm: 482193 1/2 - 1 Tablet(s) PO QID as needed anxie ty attack 01/22/2014 03/22/2014 Inactive Prozac 40 mg capsule RxNorm: 141330 1 Capsule(s) PO daily 01/22/2014 07/20/2014 Inactive [SAVINGS FOR UNINSURED PATIENTS -- BIN:0 87931, PCN: [id number], Group: [id number], ID# [id number], Process claim through [employer], for questions: . THIS IS NOT INSURANCE.] Prozac 20 mg capsule RxNorm: 157603 1 Capsule(s) PO daily 08/08/2013 01/21/2014 Inactive Prozac 20 mg capsule RxNorm: 384838 1 Capsule(s) PO daily 07/19/2013 08/07/2013 Inactive Prozac 20 mg capsule RxNorm: 020625 1 Capsule(s) PO daily 02/12/2013 07/18/2013 Inactive Influenza Virus Vacc ine 0.5 mL RxNorm: IM 02/16/2012 02/16/2012 Inactive meloxicam 7.5 mg tablet RxNorm: 925194 1 Tablet(s) PO BID ONE PILL IN MORNING, IF PAIN IS UNCONTROLLED, MAY TAKE ONE EXTRA PILL IN THe PM do not take with ibuprofen or aleve 01/24/2012 02/15/2012 Inactive melatonin 3 mg Tab RxNorm: 910847 2 Tablet(s) PO QHS No Start Date Active Calcium 600 + D(3) 6 00 mg (1,500 mg)-400 unit Tab RxNorm: 136869 1 Tablet(s) PO QPM No Start Date Active Fish Oil 360 mg-1,20 0 mg capsule,delayed release RxNorm: 1 Capsule(s) PO daily No Start Date Active Breo Ellipta inhalation RxNorm: 0754779 inhalation No Start Date Active Prozac 20 mg capsule RxNorm: 132861 1 Capsule(s) PO daily No Start Date 02/11/2013 Inactive fenofibrate nanocrys tallized 145 mg tablet RxNorm: 309241 Tablet(s) PO daily No Start Date 10/31/2016 Inactive Centrum Silver Ultra Women's Tab RxNorm: 1 Tablet(s) PO QHS No Start Date 10/31/2016 Inactive Cartia XT 120 mg cap clifford,extended release RxNorm: 897375 1 Capsule(s) PO QHS No Start Date [...] completed Assessments Condition Codes Effectiv e Dates Pneumonia, unspecified organism ICD- 10: J18.9 ICD-9: 486 11/01/2016 Cough ICD-10: R05 ICD-9: 786.2 11/01/2016 Generalized [...] Reason For Visit Effective Dates Notes cough 11/01/2016 Urgent Care = pneumonia anxiety [...] NON-HD L CH 144 MG/DL 01/23/2014 TSH 6310703 TSH 1.784 uIU/ML 01/23/2014 CBC 0661928 WBC 4.7 10e9/L 01/23/2014 CBC 6830687 RBC 4.10 10e12/L 01/23/2014 CBC 4492221 HGB 13.3 g/dL 01/23/2014 CBC 4730747 HCT DET 39.2 % 01/23/2014 CBC 7565936 MCV 95.6 fL 01/23/2014 CBC 2985066 MCH 32.4 pg 01/23/2014 CBC 0159172 MCHC 33.9 g/dL 01/23/2014 CBC 8727320 PLT 232 10e9/L 01/23/2014 CBC 1355783 MPV 10.9 fL 01/23/2014 CBC 6676591 DORON % 57.4 % 01/23/2014 CBC 5728561 LY % 28.0 % 01/23/2014 CBC 3211072 MON % 12.9 % 01/23/2014 CBC 7626742 EOS % 1.3 % 01/23/2014 CBC 7239262 BASO % 0.4 % 01/23/2014 CBC 3407027 RDW 12.1 % 01/23/2014 CBC 8982189 ABS DORON 2.70 10e9/L 01/23/2014 CBC 1218794 ABS LYMPH 1.32 10e9/L 01/23/2014 CBC 8978390 ABS MONO 0.61 10e9/L 01/23/2014 CBC 4854700 ABS EOS 0.06 10e9/L 01/23/2014 CBC 4669958 ABS BASO 0.02 10e9/L 01/23/2014 CBC 6089742 RDW-SD 41.2 fL 01/23/2014 CHEM 14 4375915 AST 18 U/L 01/23/2014 CHEM 14 9079451 ALT 13 IU/L 01/23/2014 CHEM 14 6870647 BUN 16 MG/DL 01/23/2014 CHEM 14 0063362 ALBUMIN 4.2 GM/DL 01/23/2014 CHEM 14 2236773 CHLORIDE 105 MMOL/L 01/23/2014 CHEM 14 5856991 BILI TOT 0.7 MG/DL 01/23/2014 CHEM 14 1768338 ALK PHOS 61 U/L 01/23/2014 CHEM 14 5492149 SODIUM 138 MMOL/L 01/23/2014 CHEM 14 8463824 CREATINI NE 0.65 MG/DL 01/23/2014 CHEM 14 8680227 CALCIUM 9.5 MG/DL 01/23/2014 CHEM 14 7405632 POTASSIUM 4.4 MMOL/L 01/23/2014 CHEM 14 9760921 PROT TOT 6.8 GM/DL 01/23/2014 CHEM 14 5899296 GLUCOSE 93 MG/DL 01/23/2014 CHEM 14 7859714 BICARB 28 MMOL/L 01/23/2014 CHEM 14 5280160 ANION GAP 5 MEQ/L 01/23/2014 GFR CALC 8529405 GFR AA >60 ML/MIN 01/23/2014 GFR CALC 6381737 GFR NON -AA >60 ML/MIN 01/23/2014 URIC ACID 8560477 URIC A KYLE 5.7 MG/DL 10/13/2011 CHEM 14 6876766 AST 19 U/L 10/13/2011 CHEM 14 7284181 ALT 16 U/L 10/13/2011 CHEM 14 8746997 BUN 21 MG/DL 10/13/2011 CHEM 14 4231705 ALBUMIN 4.2 GM/DL 10/13/2011 CHEM 14 7998543 CHLORIDE 103 MMOL/L 10/13/2011 CHEM 14 2019795 BILI TOT 0.6 MG/DL 10/13/2011 CHEM 14 4986137 ALK PHOS 71 U/L 10/13/2011 CHEM 14 4117153 SODIUM 141 MMOL/L 10/13/2011 CHEM 14 8573542 CREATINI NE 0.65 MG/DL 10/13/2011 CHEM 14 6171072 CALCIUM 9.3 MG/DL 10/13/2011 CHEM 14 1812435 POTASSIUM 4.2 MMOL/L 10/13/2011 CHEM 14 4560654 PROT TOT 6.8 GM/DL 10/13/2011 CHEM 14 6272960 GLUCOSE 69 MG/DL 10/13/2011 CHEM 14 1055072 BICARB 27 MMOL/L 10/13/2011 CHEM 14 3216050 ANION GAP 11 MMOL/L 10/13/2011 CBC 9052482 WBC 6.1 10e9/L 10/13/2011 CBC 9098572 RBC 4.11 10e12/L 10/13/2011 CBC 0933823 HGB 13.3 g/dL 10/13/2011 CBC 9911117 HCT DET 39.6 % 10/13/2011 CBC 0051063 MCV 96.4 fL 10/13/2011 CBC 3206603 MCH 32.4 pg 10/13/2011 CBC 1385630 MCHC 33.6 g/dL 10/13/2011 CBC 1296592 PLT 238 10e9/L 10/13/2011 CBC 2587987 MPV 11.7 fL 10/13/2011 CBC 3545579 DORON % 50.2 % 10/13/2011 CBC 5399153 LY % 35.6 % 10/13/2011 CBC 8589754 MON % 12.7 % 10/13/2011 CBC 4044567 EOS % 1.2 % 10/13/2011 CBC 5349308 BASO % 0.3 % 10/13/2011 CBC 6739244 RDW 12.3 % 10/13/2011 CBC 5702646 ABS DORON 3.06 10e9/L 10/13/2011 CBC 8978603 ABS LYMPH 2.17 10e9/L 10/13/2011 CBC 3806624 ABS MONO 0.77 10e9/L 10/13/2011 CBC 8890417 ABS EOS 0.07 10e9/L 10/13/2011 CBC 7940016 ABS BASO 0.02 10e9/L 10/13/2011 CBC 9605053 RDW-SD 42.3 fL 10/13/2011 GFR CALC 2381171 GFR AA >60 ML/MIN 10/13/2011 GFR CALC 3364763 GFR NON -AA >60 ML/MIN 10/13/2011 ESR 4148099 ESR 14 MM/HR 10/13/2011 Review of Systems System Result Effective Dates Constitutional recent illness 11/01/2016 Constitutional No anorexia [...] clear 01/22/2014 None Full Exam - General 1995 Ears/Nose/Throat [...] None Full Exam - General 1995 Cardiovascular extremities Overall: no clubbing 01/24/2012 None Full Exam - General 1995 [...] exam 10/31/2011 None Full Exam - General 1995 Musculoskeletal lower extremity ROM - foot: decreased toe flexion 10/31/2011 None Full Exam - General 1994 Musculoskeletal lower extremity ROM - foot: pain with ROM 10/31/2011 None Full Exam - General 1995 [...] Date ADMIN INFLUENZA VIRU S VAC CPT-4: [id number] 02/16/2012 FLULAVAL VACC, 3 YRS & >, IM CPT-4: [id number] 02/16/2012 PRESCRIP TRANSMIT A ERX SY CPT-4: [id number] 01/24/2012 ROUTINE VENIPUNCTURE CPT-4: 79439Mwtwepm 10/13/2011 Vital Signs Date Vital 11/01/2016 Blood Pressure 1: 136/78 Code: 8480-6 Heart Rate 1: 105 bpm SpO2: 98% Weight: 137 lbs 8 oz 11/05/2015 Blood Pressure 1: 118/74 Code: 8480-6 BMI: 25.7 Code: 97823-4 Heart Rate 1: 64 bpm Height: 5' SpO2: 98% Weight: 134 lbs 10/02/2014 Blood Pressure 1: 136/88 Code: 8480-6 BMI: 25.9 Code: 10269-4 Heart Rate 1: 68 bpm Height: 5' SpO2: 98% Weight: 135 lbs 01/22/2014 Blood Pressure 1: 122/64 Code: 8480-6 BMI: 25.7 Code: 84126-9 Heart Rate 1: 72 bpm Height: 5' Weight: 134 lbs 02/07/2013 Blood Pressure 1: 140/80 Code: 8480-6 BMI: 23.6 Code: 78647-9 Height: 5' Weight: 123 lbs 02/16/2012 Blood Pressure 1: 102/68 Code: 8480-6 Heart Rate 1: 68 bpm Respiratory Rate: 18 bpm Weight: 131 lbs 01/24/2012 Blood Pressure 1: 120/72 Code: 8480-6 Heart Rate 1: 72 bpm Respiratory Rate: 16 bpm Weight: 133 lbs 10/31/2011 Blood Pressure 1: 136/84 Code: 8480-6 BMI: 23.2 Code: 04311-4 Heart Rate 1: 74 bpm Height: 5'2" Respiratory Rate: 16 bpm Weight: 127 lbs 10/13/2011 Blood Pressure 1: 138/84 Code: 8480-6 BMI: 23.2 Code: 85168-6 Heart Rate 1: 80 bpm Height: 5'2" Respiratory Rate: 16 bpm Weight: 127 lbs Functional Status No Functional Status data History of Present Illness Symptom Name Status Resu lt Effective Date Notes Hospital Follow Up _ inf ection 11/01/2016 [...] Quality blee ding 02/07/2013 None hemorrhoids Quality crm manager holly 02/07/2013 None hemorrhoids Onset and Resolution [...] Encounters Encounter Performer Loca tion Codes Date ([id number]) 27742 EST. P ATIENT, LEVEL III Diagnosis: Cough[ICD10: R05] Diagnosis: Pneumonia, unspecified organism[ICD10: J18.9] [facility] CPT-4: 55980 11/01/2016 ([id number]) 92768 EST. P ATIENT, LEVEL III Diagnosis: Generalized anxiety disorder[ICD10: F41.1] [facility] CPT-4: 67155 11/05/2015 ([id number]) 11721 EST. P ATIENT, LEVEL III Diagnosis: Rectal bleeding[ICD9: 569.3] Jennifer Walker MD, [facility] CPT- 4: 12694 10/02/2014 ([id number]) 94407 EST. P ATIENT, LEVEL III Diagnosis: Anxiety, generalized[ICD9: 300.02] Diagnosis: Depression[ICD9: 311] Kim Walker MD, [facility] CPT-4: 95275 01/22/2014 ([id number]) 30532 EST. P ATIENT, LEVEL III Diagnosis: Bloody feces[ICD9: 578.1] Kim Walker MD, [facility] CPT-4: 96509 02/07/2013 ([id number]) 80141 EST. P ATIENT, LEVEL III Diagnosis: OSTEOARTH NOS-UNSPEC[ICD9: 715.90] Diagnosis: MUSCLE/LIGAMENT DIS NEC[ICD9: 728.89] Kim Walker MD, [facility] CPT-4: 77009 02/16/2012 ([id number]) 11556 EST. P ATIENT, LEVEL III Diagnosis: Iliotibial band syndrome[ICD9: 728.89] Diagnosis: OSTEOARTH NOS-UNSPEC[ICD9: 715.90] Diagnosis: PAIN IN LIMB[ICD9: 729.5] Kim Walker MD, [facility] CPT-4: 83927 01/24/2012 ([id number]) 22161 EST. P ATIENT, LEVEL IV Diagnosis: OSTEOARTH NOS-UNSPEC[ICD9: 715.90] Diagnosis: ROUTINE GYNE EXAM[ICD9: V72.31] Kim Walker MD, [facility] CPT-4: 54853 10/31/2011 OFFICE VISIT, NEW - LEVEL 4 Diagnosis: Osteoarthritis[ICD9: 715.90] Diagnosis: INSOMNIA NOS[ICD9: 780.52] Diagnosis: PAIN IN LIMB[ICD9: 729.5] Kim Walker MD, [facility] CPT-4: 74654 10/13/2011 Plan of Care Planned Activity Notes C odes Status Date Appointment: Jennifer Vera WPtel: [phone] [phone] (30 min) Complex 11/08/2016 Visit Plan: Pneumonia-on abx per urgent- continue current treatment and follow up in 1 week to ensure resolution of symptoms. Call sooner for worsening or new symptoms. Patient verbalized understanding of plan. 11/01/2016 Appointment: Jennifer Vera WPtel: [address] [place], [place] [phone] [place] [address] (15 min) Moderate 11/01/2016 Patient Education: Patient [...] current medications. 11/05/2015 Appointment: Jennifer Vera WPtel: [address] [place], [place] [phone] [place] [address] (15 min) Moderate 11/05/2015 Patient Education: Patient [...] attacks 01/22/2014 Appointment: Kim Walker WPtel: [facility] Sick 01/22/2014 Patient Education: Patient Medication Summary Completed 01/22/2014 Care Plan: COMPLETE CBC AUTOMATED LOINC : 82652-9 Ordered 01/22/2014 Visit Plan: Blood in stool [...] up. 02/07/2013 Appointment: Kim Walker WPtel: [facility] Follow up 02/07/2013 Patient Education: Patient Medication Summary Completed 02/07/2013 Visit Plan: Arthritis- occasionally unc ontrolled symptoms- recommend pt to take antiinflammatory as directed for pain control.Use tylenol for break through pain symptoms.Start mobic dailyLeg length discrepency - recommended pt to place: dr gilliland inserts- 2 in the left shoe 02/16/2012 Appointment: Kim Walker WPtel: [facility] [place] Follow up 02/16/2012 Patient Education: Patient [...] re-eval. 01/24/2012 Appointment: Kim Walker WPtel: [facility] [place] Other 01/24/2012 Patient Education: Patient [...] daily. 10/31/2011 Appointment: Kim Walker WPtel: [facility] [facility] 10/31/2011 Patient Education: Patient [...] insomnia. 10/13/2011 Appointment: Kim Walker WPtel: [facility] [place] [phone] New Patient 10/13/2011 Patient Education: Patient Medication [...] to Dr. Rodriguez for further work up. . Well Adult Femal e - exam [...]
--- OUTSIDE RECORDS SUMMARY | 2019-12-04 07:06 | XMS REPORT | CCD ---
Author Author Linda Walker Organization Kim Walker MD, [facility] Address [address] [place] [address] Phone Care Team Providers Care Top Screw Name Role Phone PP Unavailable CCM Unavailable Summary Purpose Interface Exchange Insurance Providers Payer name Policy type / Coverage type Covered republican ID Effective Begin Date Effective End Date [employer] [id number] 2016 Unknown [place] [employer] [id number] 2016 Unknown Family history Mother Diagnosis Age At Onset Breast cancer Unknown Brother Diagnosis Age At Onset Arthritis Unknown Grandson Diagnosis Age At Onset Diabetes Unknown Social History Social History Element Codes Description Effective Dates Tobacco history SNOMED CT: 8755438 Former smoker quit 03/201301/22/2014 Employment Unknown Retir ed 10/13/2011 Marital status Unknown D ivorced 10/10/2011 Number of children Unknown 1 10/10/2011 Alcohol history Unknown occasionally drinks alcohol 1 drink per month with meals 012 Allergies, Adverse Reactions, Alerts Allergies, Adverse Reactions, Alerts data not found Past Medical History Illness Codes Condition Status Onset Date Resolved Date Cough ICD-9: 786.2 ICD-10: R05 Active 11/01/2016 [...] Condition Codes Effectiv e Dates Condition Status Cough ICD-9: 786.2 ICD-10: R05 11/01/2016 Active [...] Date Stop Date Sta tus Fill Instructions Phenergan with Codei ne Syrup RxNorm: 2.5 Milliliter(s) PO QHS as needed 10/28/2016 No Stop Date Active levofloxacin 500 mg tablet RxNorm: 862873 1 Tablet(s) PO daily 10/28/2016 11/06/2016 Active Prozac 40 mg capsule RxNorm: 203685 TAKE ONE CAPSULE BY MOUTH ONCE DAILY 08/01/2016 10/29/2016 In active Prozac 40 mg capsule RxNorm: 203249 1 Capsule(s) PO daily 11/05/2015 05/02/2016 Inactive [SAVINGS FOR UNINSURED PATIENTS -- BIN:0 03881, PCN: [id number], Group: [id number], ID# [id number], Process claim through [employer], for questions: . THIS IS NOT INSURANCE.] Xanax 0.25 mg tablet RxNorm: 162712 1/2 - 1 Tablet(s) PO QID as needed anxie ty attack 11/02/2015 01/30/2016 Inactive Prozac 40 mg capsule RxNorm: 229852 Capsule(s) TAKE ONE CAPSULE BY MOUTH ONC E DAILY 08/12/2015 08/11/2015 Inactive NEEDS APPT Prozac 40 mg capsule RxNorm: 445222 TAKE ONE CAPSULE BY MOUTH ONCE DAILY 08/12/2015 07/31/2016 In active hydrocortisone aceta te 25 mg rectal suppository RxNorm: 2566225 1 Suppository RTL QH S 10/02/2014 No Stop Date Active daily HS x 1 week, then twice weekly the n as needed Prozac 40 mg capsule RxNorm: 347388 TAKE ONE CAPSULE BY MOUTH ONCE DAILY 07/31/2014 01/26/2015 In active Prozac 40 mg capsule RxNorm: 693733 1 Capsule(s) PO daily 07/30/2014 02/24/2015 Inactive [SAVINGS FOR NON-COVERED DRUGS -- BIN:00 3585, PCN: [id number], Group: XXXXX, ID# [id number], Questions: . THIS IS NOT INSURANCE.] Xanax 0.25 mg tablet RxNorm: 667282 1/2 - 1 Tablet(s) PO QID as needed anxie ty attack 01/22/2014 03/22/2014 Inactive Prozac 40 mg capsule RxNorm: 007002 1 Capsule(s) PO daily 01/22/2014 07/20/2014 Inactive [SAVINGS FOR UNINSURED PATIENTS -- BIN:0 42811, PCN: [id number], Group: [id number], ID# [id number], Process claim through [employer], for questions: . THIS IS NOT INSURANCE.] Prozac 20 mg capsule RxNorm: 497796 1 Capsule(s) PO daily 08/08/2013 01/21/2014 Inactive Prozac 20 mg capsule RxNorm: 848472 1 Capsule(s) PO daily 07/19/2013 08/07/2013 Inactive Prozac 20 mg capsule RxNorm: 114358 1 Capsule(s) PO daily 02/12/2013 07/18/2013 Inactive Influenza Virus Vacc ine 0.5 mL RxNorm: IM 02/16/2012 02/16/2012 Inactive meloxicam 7.5 mg tablet RxNorm: 937711 1 Tablet(s) PO BID ONE PILL IN MORNING, IF PAIN IS UNCONTROLLED, MAY TAKE ONE EXTRA PILL IN THe PM do not take with ibuprofen or aleve 01/24/2012 02/15/2012 Inactive melatonin 3 mg Tab RxNorm: 048002 2 Tablet(s) PO QHS No Start Date Active Calcium 600 + D(3) 6 00 mg (1,500 mg)-400 unit Tab RxNorm: 490839 1 Tablet(s) PO QPM No Start Date Active Fish Oil 360 mg-1,20 0 mg capsule,delayed release RxNorm: 1 Capsule(s) PO daily No Start Date Active Breo Ellipta inhalation RxNorm: 3951106 inhalation No Start Date Active Cartia XT 120 mg cap clifford,extended release RxNorm: 190751 1 Capsule(s) PO QHS No Start Date Active Prozac 20 mg capsule RxNorm: 872948 1 Capsule(s) PO daily No Start Date 02/11/2013 Inactive fenofibrate nanocrys tallized 145 mg tablet RxNorm: 920281 Tablet(s) PO daily No Start Date 10/31/2016 Inactive Centrum Silver Ultra Women's Tab RxNorm: 1 Tablet(s) PO QHS No Start Date 10/31/2016 Inactive Vision oral RxNorm: oral No Start [...] NON-HD L CH 144 MG/DL 01/23/2014 TSH 6319111 TSH 1.784 uIU/ML 01/23/2014 CBC 5179590 WBC 4.7 10e9/L 01/23/2014 CBC 6234331 RBC 4.10 10e12/L 01/23/2014 CBC 4783222 HGB 13.3 g/dL 01/23/2014 CBC 1211908 HCT DET 39.2 % 01/23/2014 CBC 7379517 MCV 95.6 fL 01/23/2014 CBC 4696520 MCH 32.4 pg 01/23/2014 CBC 4030268 MCHC 33.9 g/dL 01/23/2014 CBC 4793696 PLT 232 10e9/L 01/23/2014 CBC 9945228 MPV 10.9 fL 01/23/2014 CBC 8625765 DORON % 57.4 % 01/23/2014 CBC 9565107 LY % 28.0 % 01/23/2014 CBC 8048026 MON % 12.9 % 01/23/2014 CBC 2635839 EOS % 1.3 % 01/23/2014 CBC 3048987 BASO % 0.4 % 01/23/2014 CBC 0198182 RDW 12.1 % 01/23/2014 CBC 9236663 ABS DORON 2.70 10e9/L 01/23/2014 CBC 9754841 ABS LYMPH 1.32 10e9/L 01/23/2014 CBC 2853461 ABS MONO 0.61 10e9/L 01/23/2014 CBC 0731601 ABS EOS 0.06 10e9/L 01/23/2014 CBC 9266313 ABS BASO 0.02 10e9/L 01/23/2014 CBC 8499079 RDW-SD 41.2 fL 01/23/2014 CHEM 14 7310343 AST 18 U/L 01/23/2014 CHEM 14 8790131 ALT 13 IU/L 01/23/2014 CHEM 14 9533028 BUN 16 MG/DL 01/23/2014 CHEM 14 9693068 ALBUMIN 4.2 GM/DL 01/23/2014 CHEM 14 3329216 CHLORIDE 105 MMOL/L 01/23/2014 CHEM 14 5144902 BILI TOT 0.7 MG/DL 01/23/2014 CHEM 14 8624439 ALK PHOS 61 U/L 01/23/2014 CHEM 14 2395188 SODIUM 138 MMOL/L 01/23/2014 CHEM 14 2506110 CREATINI NE 0.65 MG/DL 01/23/2014 CHEM 14 8232788 CALCIUM 9.5 MG/DL 01/23/2014 CHEM 14 8834368 POTASSIUM 4.4 MMOL/L 01/23/2014 CHEM 14 0506972 PROT TOT 6.8 GM/DL 01/23/2014 CHEM 14 5203045 GLUCOSE 93 MG/DL 01/23/2014 CHEM 14 4049388 BICARB 28 MMOL/L 01/23/2014 CHEM 14 2423487 ANION GAP 5 MEQ/L 01/23/2014 GFR CALC 7614836 GFR AA >60 ML/MIN 01/23/2014 GFR CALC 8015239 GFR NON -AA >60 ML/MIN 01/23/2014 URIC ACID 8458557 URIC A KYLE 5.7 MG/DL 10/13/2011 CHEM 14 4914322 AST 19 U/L 10/13/2011 CHEM 14 9118525 ALT 16 U/L 10/13/2011 CHEM 14 9507442 BUN 21 MG/DL 10/13/2011 CHEM 14 7461108 ALBUMIN 4.2 GM/DL 10/13/2011 CHEM 14 0120214 CHLORIDE 103 MMOL/L 10/13/2011 CHEM 14 5952006 BILI TOT 0.6 MG/DL 10/13/2011 CHEM 14 9950327 ALK PHOS 71 U/L 10/13/2011 CHEM 14 9541627 SODIUM 141 MMOL/L 10/13/2011 CHEM 14 4511158 CREATINI NE 0.65 MG/DL 10/13/2011 CHEM 14 3053522 CALCIUM 9.3 MG/DL 10/13/2011 CHEM 14 2630067 POTASSIUM 4.2 MMOL/L 10/13/2011 CHEM 14 5948045 PROT TOT 6.8 GM/DL 10/13/2011 CHEM 14 5331009 GLUCOSE 69 MG/DL 10/13/2011 CHEM 14 1036333 BICARB 27 MMOL/L 10/13/2011 CHEM 14 4314888 ANION GAP 11 MMOL/L 10/13/2011 CBC 5243065 WBC 6.1 10e9/L 10/13/2011 CBC 2259833 RBC 4.11 10e12/L 10/13/2011 CBC 1672285 HGB 13.3 g/dL 10/13/2011 CBC 3734890 HCT DET 39.6 % 10/13/2011 CBC 2460883 MCV 96.4 fL 10/13/2011 CBC 1026978 MCH 32.4 pg 10/13/2011 CBC 4483178 MCHC 33.6 g/dL 10/13/2011 CBC 8892222 PLT 238 10e9/L 10/13/2011 CBC 3900227 MPV 11.7 fL 10/13/2011 CBC 9010857 DORON % 50.2 % 10/13/2011 CBC 4669459 LY % 35.6 % 10/13/2011 CBC 6640093 MON % 12.7 % 10/13/2011 CBC 0317362 EOS % 1.2 % 10/13/2011 CBC 4116464 BASO % 0.3 % 10/13/2011 CBC 1666037 RDW 12.3 % 10/13/2011 CBC 2343437 ABS DORON 3.06 10e9/L 10/13/2011 CBC 3326680 ABS LYMPH 2.17 10e9/L 10/13/2011 CBC 0777832 ABS MONO 0.77 10e9/L 10/13/2011 CBC 6923745 ABS EOS 0.07 10e9/L 10/13/2011 CBC 5698378 ABS BASO 0.02 10e9/L 10/13/2011 CBC 9500649 RDW-SD 42.3 fL 10/13/2011 GFR CALC 0750436 GFR AA >60 ML/MIN 10/13/2011 GFR CALC 6200147 GFR NON -AA >60 ML/MIN 10/13/2011 ESR 0317658 ESR 14 MM/HR 10/13/2011 Review of Systems [...] 1995 Ears/Nose/Throat oral cavity/pharynx/larynx Overall: no masses 11/01/2016 [...] distress 01/24/2012 None Full Exam - General 1995 Constitutional general appearance Overall: well nourished 01/24/2012 [...] Date ADMIN INFLUENZA VIRU S VAC CPT-4: [id number] 02/16/2012 FLULAVAL VACC, 3 YRS & >, IM CPT-4: [id number] 02/16/2012 PRESCRIP TRANSMIT A ERX SY CPT-4: [id number] 01/24/2012 ROUTINE VENIPUNCTURE CPT-4: [id number] 10/13/2011 Vital Signs Date Vital 11/01/2016 Blood Pressure 1: 136/78 Code: 8480-6 Heart Rate 1: 105 bpm SpO2: 98% Weight: 137 lbs 8 oz 11/05/2015 Blood Pressure 1: 118/74 Code: 8480-6 BMI: 25.7 Code: 42324-0 Heart Rate 1: 64 bpm Height: 5' SpO2: 98% Weight: 134 lbs 10/02/2014 Blood Pressure 1: 136/88 Code: 8480-6 BMI: 25.9 Code: 05088-2 Heart Rate 1: 68 bpm Height: 5' SpO2: 98% Weight: 135 lbs 01/22/2014 Blood Pressure 1: 122/64 Code: 8480-6 BMI: 25.7 Code: 38279-4 Heart Rate 1: 72 bpm Height: 5' Weight: 134 lbs 02/07/2013 Blood Pressure 1: 140/80 Code: 8480-6 BMI: 23.6 Code: 97644-6 Height: 5' Weight: 123 lbs 02/16/2012 Blood Pressure 1: 102/68 Code: 8480-6 Heart Rate 1: 68 bpm Respiratory Rate: 18 bpm Weight: 131 lbs 01/24/2012 Blood Pressure 1: 120/72 Code: 8480-6 Heart Rate 1: 72 bpm Respiratory Rate: 16 bpm Weight: 133 lbs 10/31/2011 Blood Pressure 1: 136/84 Code: 8480-6 BMI: 23.2 Code: 01824-3 Heart Rate 1: 74 bpm Height: 5'2" Respiratory Rate: 16 bpm Weight: 127 lbs 10/13/2011 Blood Pressure 1: 138/84 Code: 8480-6 BMI: 23.2 Code: 21331-7 Heart Rate 1: 80 bpm Height: 5'2" [...] Quality blee ding 02/07/2013 None hemorrhoids 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 P ATIENT, LEVEL III Diagnosis: Cough[ICD10: R05] Diagnosis: Pneumonia, unspecified organism[ICD10: J18.9] Jennifer Walker MD, [facility] CPT-4: 84551 11/01/2016 ([id number]) 73314 EST. P ATIENT, LEVEL III Diagnosis: Generalized anxiety disorder[ICD10: F41.1] Jennifer Walker MD, [facility] CPT-4: 95501 11/05/2015 ([id number]) 15399 EST. P ATIENT, LEVEL III Diagnosis: Rectal bleeding[ICD9: 569.3] Jennifer Walker MD, [facility] CPT- 4: 63293 10/02/2014 ([id number]) 68072 EST. P ATIENT, LEVEL III Diagnosis: Anxiety, generalized[ICD9: 300.02] Diagnosis: Depression[ICD9: 311] Kim Walker MD, [facility] CPT-4: 04508 01/22/2014 ([id number]) 68680 EST. P ATIENT, LEVEL III Diagnosis: Bloody feces[ICD9: 578.1] Kim Walker MD, [facility] CPT-4: 07994 02/07/2013 ([id number]) 59178 EST. P ATIENT, LEVEL III Diagnosis: OSTEOARTH NOS-UNSPEC[ICD9: 715.90] Diagnosis: MUSCLE/LIGAMENT DIS NEC[ICD9: 728.89] Kim Walker MD, [facility] CPT-4: 30830 02/16/2012 ([id number]) 86795 EST. P ATIENT, LEVEL III Diagnosis: Iliotibial band syndrome[ICD9: 728.89] Diagnosis: OSTEOARTH NOS-UNSPEC[ICD9: 715.90] Diagnosis: PAIN IN LIMB[ICD9: 729.5] Kim Walker MD, [facility] CPT-4: 03219 01/24/2012 ([id number]) 11493 EST. [facility] Diagnosis: OSTEOARTH NOS-UNSPEC[ICD9: 715.90] Diagnosis: ROUTINE GYNE EXAM[ICD9: V72.31] [facility] CPT-4: 19762 10/31/2011 OFFICE VISIT, NEW - LEVEL 4 Diagnosis: Osteoarthritis[ICD9: 715.90] Diagnosis: INSOMNIA NOS[ICD9: 780.52] Diagnosis: PAIN IN LIMB[ICD9: 729.5] Kim Walker MD, [facility] CPT-4: 59458 10/13/2011 Plan of Care Planned Activity Notes C odes Status Date Visit Plan: Pneumonia-on abx per urgent- continue current treatment and follow up in 1 week to ensure resolution of symptoms. Call sooner for worsening or new symptoms. Patient verbalized understanding of plan. 11/01/2016 Appointment: Jennifer Vera WPtel: [address] [place], [place] [phone] (15 min) Moderate 11/01/2016 Patient Education: Patient [...] current medications. 11/05/2015 Appointment: Jennifer Vera WPtel: [address] [place], [place] [phone] (15 min) Moderate 11/05/2015 Patient Education: Patient [...] attacks 01/22/2014 Appointment: Kim Walker WPtel: [facility] [place] Sick 01/22/2014 Patient Education: Patient Medication Summary Completed 01/22/2014 Care Plan: COMPLETE CBC AUTOMATED LOINC : 10593-3 Ordered 01/22/2014 Visit Plan: Blood in stool [...] work up. 02/07/2013 Appointment: Kim Walker WPtel: [facility] Follow up 02/07/2013 Patient Education: Patient Medication Summary Completed 02/07/2013 Visit Plan: Arthritis- occasionally unc ontrolled symptoms- recommend pt to take antiinflammatory as directed for pain control.Use tylenol for break through pain symptoms.Start mobic dailyLeg length discrepency - recommended pt to place: dr gilliland inserts- 2 in the left shoe 02/16/2012 Appointment: Kim Walker WPtel: [facility] Follow up 02/16/2012 Patient Education: Patient [...] for re-eval. 01/24/2012 Appointment: Kim Walker WPtel: [address] [place] [address] Other 01/24/2012 Patient Education: Patient Medication Summary [...] times daily. 10/31/2011 Appointment: Kim Walker WPtel: [facility] [address] [facility] 10/31/2011 Patient Education: Patient [...] napping worsens night time insomnia. 10/13/2011 Appointment: Den[facility] Kim [facility]el[facility] [phone] [facility] [place] New Patient 10/13/2011 Patient Education: Patient [...]
--- OUTSIDE RECORDS SUMMARY | 2019-12-04 07:06 | XMS REPORT | CCD ---
Author Author Linda Walker Organization Kim Walker MD, [facility] Address [address] [place] [address] Phone Care Team Providers Care Geology Faculty Member Name Role Phone PP Unavailable CCM Unavailable Summary Purpose Interface Exchange Insurance Providers Payer name Policy type / Coverage type Covered constitution party ID Effective Begin Date Effective End Date [employer] [id number] 2016 Unknown [employer] [id number] 2016 Unknown Family history Mother Diagnosis Age At Onset Breast cancer Unknown Brother Diagnosis Age At Onset Arthritis Unknown Grandson Diagnosis Age At Onset Diabetes Unknown Social History Social History Element Codes Description Effective Dates Tobacco history SNOMED CT: 1216279 Former smoker quit 03/201301/22/2014 Employment Unknown Retir [...] Fill Instructions Prozac 40 mg capsule RxNorm: 938233 TAKE ONE CAPSULE BY MOUTH ONCE DAILY 11/07/2016 02/04/2017 Ac tive Phenergan with Codei ne Syrup RxNorm: 2.5 Milliliter(s) PO QHS as needed 10/28/2016 No Stop Date Active levofloxacin 500 mg tablet RxNorm: 536666 1 Tablet(s) PO daily 10/28/2016 11/06/2016 Inactive Prozac 40 mg capsule RxNorm: 463435 TAKE ONE CAPSULE BY MOUTH ONCE DAILY 08/01/2016 10/29/2016 In active Prozac 40 mg capsule RxNorm: 964645 1 Capsule(s) PO daily 11/05/2015 05/02/2016 Inactive [SAVINGS FOR UNINSURED PATIENTS -- BIN:0 21900, PCN: [id number], Group: [id number], ID# [id number], Process claim through [employer], for questions: . THIS IS NOT INSURANCE.] Xanax 0.25 mg tablet RxNorm: 780319 1/2 - 1 Tablet(s) PO QID as needed anxie ty attack 11/02/2015 01/30/2016 Inactive Prozac 40 mg capsule RxNorm: 613074 Capsule(s) TAKE ONE CAPSULE BY MOUTH ONC E DAILY 08/12/2015 08/11/2015 Inactive NEEDS APPT Prozac 40 mg capsule RxNorm: 258129 TAKE ONE CAPSULE BY MOUTH ONCE DAILY 08/12/2015 07/31/2016 In active hydrocortisone aceta te 25 mg rectal suppository RxNorm: 7866465 1 Suppository RTL QH S 10/02/2014 No Stop Date Active daily HS x 1 week, then twice weekly the n as needed Prozac 40 mg capsule RxNorm: 133411 TAKE ONE CAPSULE BY MOUTH ONCE DAILY 07/31/2014 01/26/2015 In active Prozac 40 mg capsule RxNorm: 848400 1 Capsule(s) PO daily 07/30/2014 02/24/2015 Inactive [SAVINGS FOR NON-COVERED DRUGS -- BIN:00 3585, PCN: [id number], Group: XXXXX, ID# [id number], Questions: . THIS IS NOT INSURANCE.] Xanax 0.25 mg tablet RxNorm: 071673 /2 - 1 Tablet(s) PO QID as needed anxie ty attack 01/22/2014 03/22/2014 Inactive Prozac 40 mg capsule RxNorm: 158214 1 Capsule(s) PO daily 01/22/2014 07/20/2014 Inactive [SAVINGS FOR UNINSURED PATIENTS -- BIN:0 01699, PCN: ASPROD1, Group: [id number], ID# [id number], Process claim through [employer], for questions: . THIS IS NOT INSURANCE.] Prozac 20 mg capsule RxNorm: 602390 1 Capsule(s) PO daily 08/08/2013 01/21/2014 Inactive Prozac 20 mg capsule RxNorm: 055921 1 Capsule(s) PO daily 07/19/2013 08/07/2013 Inactive Prozac 20 mg capsule RxNorm: 346994 1 Capsule(s) PO daily 02/12/2013 07/18/2013 Inactive Influenza Virus Vacc ine 0.5 mL RxNorm: IM 02/16/2012 02/16/2012 Inactive meloxicam 7.5 mg tablet RxNorm: 775684 1 Tablet(s) PO BID ONE PILL IN MORNING, IF PAIN IS UNCONTROLLED, MAY TAKE ONE EXTRA PILL IN THe PM do not take with ibuprofen or aleve 01/24/2012 02/15/2012 Inactive melatonin 3 mg Tab RxNorm: 691754 2 Tablet(s) PO QHS No Start Date Active Calcium 600 + D(3) 6 00 mg (1,500 mg)-400 unit Tab RxNorm: 297567 1 Tablet(s) PO QPM No Start Date Active Fish Oil 360 mg-1,20 0 mg capsule,delayed release RxNorm: 1 Capsule(s) PO daily No Start Date Active Breo Ellipta inhalation RxNorm: 5614166 inhalation No Start Date Active Cartia XT 120 mg cap clifford,extended release RxNorm: 686266 1 Capsule(s) PO QHS No Start Date Active Prozac 20 mg capsule RxNorm: 335815 1 Capsule(s) PO daily No Start Date 02/11/2013 Inactive fenofibrate nanocrys tallized 145 mg tablet RxNorm: 284984 Tablet(s) PO daily No Start Date 10/31/2016 [...] NON-HD L CH 144 MG/DL 01/23/2014 TSH 3147914 TSH 1.784 uIU/ML 01/23/2014 CBC 6138309 WBC 4.7 10e9/L 01/23/2014 CBC 1111270 RBC 4.10 10e12/L 01/23/2014 CBC 4228927 HGB 13.3 g/dL 01/23/2014 CBC 9523901 HCT DET 39.2 % 01/23/2014 CBC 2037378 MCV 95.6 fL 01/23/2014 CBC 5154603 MCH 32.4 pg 01/23/2014 CBC 5495147 MCHC 33.9 g/dL 01/23/2014 CBC 5997113 PLT 232 10e9/L 01/23/2014 CBC 8696628 MPV 10.9 fL 01/23/2014 CBC 7639239 DORON % 57.4 % 01/23/2014 CBC 1297213 LY % 28.0 % 01/23/2014 CBC 7344646 MON % 12.9 % 01/23/2014 CBC 0668835 EOS % 1.3 % 01/23/2014 CBC 9126857 BASO % 0.4 % 01/23/2014 CBC 4201502 RDW 12.1 % 01/23/2014 CBC 4971638 ABS DORON 2.70 10e9/L 01/23/2014 CBC 3279426 ABS LYMPH 1.32 10e9/L 01/23/2014 CBC 8405936 ABS MONO 0.61 10e9/L 01/23/2014 CBC 5283721 ABS EOS 0.06 10e9/L 01/23/2014 CBC 9807072 ABS BASO 0.02 10e9/L 01/23/2014 CBC 5688099 RDW-SD 41.2 fL 01/23/2014 CHEM 14 4505788 AST 18 U/L 01/23/2014 CHEM 14 0379683 ALT 13 IU/L 01/23/2014 CHEM 14 3741301 BUN 16 MG/DL 01/23/2014 CHEM 14 8523882 ALBUMIN 4.2 GM/DL 01/23/2014 CHEM 14 3023623 CHLORIDE 105 MMOL/L 01/23/2014 CHEM 14 9116203 BILI TOT 0.7 MG/DL 01/23/2014 CHEM 14 7798725 ALK PHOS 61 U/L 01/23/2014 CHEM 14 1565475 SODIUM 138 MMOL/L 01/23/2014 CHEM 14 4361413 CREATINI NE 0.65 MG/DL 01/23/2014 CHEM 14 4996203 CALCIUM 9.5 MG/DL 01/23/2014 CHEM 14 2618002 POTASSIUM 4.4 MMOL/L 01/23/2014 CHEM 14 4804819 PROT TOT 6.8 GM/DL 01/23/2014 CHEM 14 6629436 GLUCOSE 93 MG/DL 01/23/2014 CHEM 14 8117890 BICARB 28 MMOL/L 01/23/2014 CHEM 14 7477525 ANION GAP 5 MEQ/L 01/23/2014 GFR CALC 5402283 GFR AA >60 ML/MIN 01/23/2014 GFR CALC 3470135 GFR NON -AA >60 ML/MIN 01/23/2014 URIC ACID 5429081 URIC A KYLE 5.7 MG/DL 10/13/2011 CHEM 14 6207508 AST 19 U/L 10/13/2011 CHEM 14 5606664 ALT 16 U/L 10/13/2011 CHEM 14 0491133 BUN 21 MG/DL 10/13/2011 CHEM 14 8883691 ALBUMIN 4.2 GM/DL 10/13/2011 CHEM 14 3734988 CHLORIDE 103 MMOL/L 10/13/2011 CHEM 14 1680887 BILI TOT 0.6 MG/DL 10/13/2011 CHEM 14 5290654 ALK PHOS 71 U/L 10/13/2011 CHEM 14 5590882 SODIUM 141 MMOL/L 10/13/2011 CHEM 14 2174494 CREATINI NE 0.65 MG/DL 10/13/2011 CHEM 14 7749745 CALCIUM 9.3 MG/DL 10/13/2011 CHEM 14 2861792 POTASSIUM 4.2 MMOL/L 10/13/2011 CHEM 14 9983884 PROT TOT 6.8 GM/DL 10/13/2011 CHEM 14 5592004 GLUCOSE 69 MG/DL 10/13/2011 CHEM 14 3132269 BICARB 27 MMOL/L 10/13/2011 CHEM 14 4700569 ANION GAP 11 MMOL/L 10/13/2011 CBC 7205849 WBC 6.1 10e9/L 10/13/2011 CBC 9957934 RBC 4.11 10e12/L 10/13/2011 CBC 1196125 HGB 13.3 g/dL 10/13/2011 CBC 8222520 HCT DET 39.6 % 10/13/2011 CBC 8359897 MCV 96.4 fL 10/13/2011 CBC 8356104 MCH 32.4 pg 10/13/2011 CBC 2254106 MCHC 33.6 g/dL 10/13/2011 CBC 0481510 PLT 238 10e9/L 10/13/2011 CBC 5094164 MPV 11.7 fL 10/13/2011 CBC 6795247 DORON % 50.2 % 10/13/2011 CBC 2387361 LY % 35.6 % 10/13/2011 CBC 7704897 MON % 12.7 % 10/13/2011 CBC 1887033 EOS % 1.2 % 10/13/2011 CBC 2403176 BASO % 0.3 % 10/13/2011 CBC 1825836 RDW 12.3 % 10/13/2011 CBC 0581660 ABS DORON 3.06 10e9/L 10/13/2011 CBC 4758174 ABS LYMPH 2.17 10e9/L 10/13/2011 CBC 8336340 ABS MONO 0.77 10e9/L 10/13/2011 CBC 9103590 ABS EOS 0.07 10e9/L 10/13/2011 CBC 7247111 ABS BASO 0.02 10e9/L 10/13/2011 CBC 8181410 RDW-SD 42.3 fL 10/13/2011 GFR CALC 0683014 GFR AA >60 ML/MIN 10/13/2011 GFR CALC 4730364 GFR NON -AA >60 ML/MIN 10/13/2011 ESR 0559547 ESR 14 MM/HR 10/13/2011 Review of Systems [...] Date ADMIN INFLUENZA VIRU S VAC CPT-4: [id number] 02/16/2012 FLULAVAL VACC, 3 YRS & >, IM CPT-4: [id number] 02/16/2012 PRESCRIP TRANSMIT A ERX SY CPT-4: [id number] 01/24/2012 ROUTINE VENIPUNCTURE CPT-4: [id number] 10/13/2011 Vital Signs Date Vital 11/01/2016 Blood Pressure 1: 136/78 Code: 8480-6 Heart Rate 1: 105 bpm SpO2: 98% Weight: 137 lbs 8 oz 11/05/2015 Blood Pressure 1: 118/74 Code: 8480-6 BMI: 25.7 Code: 56562-6 Heart Rate 1: 64 bpm Height: 5' SpO2: 98% Weight: 134 lbs 10/02/2014 Blood Pressure 1: 136/88 Code: 8480-6 BMI: 25.9 Code: 08178-3 Heart Rate 1: 68 bpm Height: 5' SpO2: 98% Weight: 135 lbs 01/22/2014 Blood Pressure 1: 122/64 Code: 8480-6 BMI: 25.7 Code: 89028-9 Heart Rate 1: 72 bpm Height: 5' Weight: 134 lbs 02/07/2013 Blood Pressure 1: 140/80 Code: 8480-6 BMI: 23.6 Code: 87038-2 Height: 5' Weight: 123 lbs 02/16/2012 Blood Pressure 1: 102/68 Code: 8480-6 Heart Rate 1: 68 bpm Respiratory Rate: 18 bpm Weight: 131 lbs 01/24/2012 Blood Pressure 1: 120/72 Code: 8480-6 Heart Rate 1: 72 bpm Respiratory Rate: 16 bpm Weight: 133 lbs 10/31/2011 Blood Pressure 1: 136/84 Code: 8480-6 BMI: 23.2 Code: 35041-5 Heart Rate 1: 74 bpm Height: 5'2" Respiratory Rate: 16 bpm Weight: 127 lbs 10/13/2011 Blood Pressure 1: 138/84 Code: 8480-6 BMI: 23.2 Code: 32813-8 Heart Rate 1: 80 bpm Height: 5'2" [...] Quality blee ding 02/07/2013 None hemorrhoids Quality chronic disease manager holly 02/07/2013 None hemorrhoids Onset and [...] Encounters Encounter Performer Loca tion Codes Date ([id number]) 89271 EST. P ATIENT, LEVEL III Diagnosis: Cough[ICD10: R05] Diagnosis: Pneumonia, unspecified organism[ICD10: J18.9] Jennifer Walker MD, [facility] CPT-4: 77910 11/01/2016 ([id number]) 66958 EST. P ATIENT, LEVEL III Diagnosis: Generalized anxiety disorder[ICD10: F41.1] [facility] CPT-4: 61923 11/05/2015 ([id number]) 91608 EST. P ATIENT, LEVEL III Diagnosis: Rectal bleeding[ICD9: 569.3] [facility] CPT- 4: 81275 10/02/2014 ([id number]) 83601 EST. P ATIENT, LEVEL III Diagnosis: Anxiety, generalized[ICD9: 300.02] Diagnosis: Depression[ICD9: 311] [facility] CPT-4: 89451 01/22/2014 ([id number]) 72174 EST. P ATIENT, LEVEL III Diagnosis: Bloody feces[ICD9: 578.1] [facility] CPT-4: 06077 02/07/2013 ([id number]) 91320 EST. P ATIENT, LEVEL III Diagnosis: OSTEOARTH NOS-UNSPEC[ICD9: 715.90] Diagnosis: MUSCLE/LIGAMENT DIS NEC[ICD9: 728.89] [facility] CPT-4: 69492 02/16/2012 ([id number]) 52629 EST. P ATIENT, LEVEL III Diagnosis: Iliotibial band syndrome[ICD9: 728.89] Diagnosis: OSTEOARTH NOS-UNSPEC[ICD9: 715.90] Diagnosis: PAIN IN LIMB[ICD9: 729.5] [facility] CPT-4: 34141 01/24/2012 ([id number]) 68503 EST. P ATIENT, LEVEL IV Diagnosis: OSTEOARTH NOS-UNSPEC[ICD9: 715.90] Diagnosis: ROUTINE GYNE EXAM[ICD9: V72.31] [facility] CPT-4: 03759 10/31/2011 OFFICE VISIT, NEW - LEVEL 4 Diagnosis: Osteoarthritis[ICD9: 715.90] Diagnosis: INSOMNIA NOS[ICD9: 780.52] Diagnosis: PAIN IN LIMB[ICD9: 729.5] [facility] CPT-4: 36703 10/13/2011 Plan of Care Planned Activity Notes C odes Status Date Visit Plan: Pneumonia-on abx per urgent- continue current treatment and follow up in 1 week to ensure resolution of symptoms. Call sooner for worsening or new symptoms. Patient verbalized understanding of plan. 11/01/2016 Appointment: Jennifer Vera WPtel: [address] [place], [place] [phone] (15 min) Moderate 11/01/2016 Patient Education: Patient [...] current medications. 11/05/2015 [facility]ment[facility] [phone] [phone] (15 min) Moderate 11/05/2015 Patient Education: Patient [...] panic attacks 01/22/2014 Appointment: Kim Walker WPtel: [address] [place], [place] [phone] Sick 01/22/2014 Patient Education: Patient Medication Summary Completed 01/22/2014 Care Plan: COMPLETE CBC AUTOMATED LOINC : 25691-5 Ordered 01/22/2014 Visit Plan: Blood in stool [...] up. 02/07/2013 Appointment: Kim Walker WPtel: [facility] Follow up 02/07/2013 Patient Education: Patient Medication Summary Completed 02/07/2013 Visit Plan: Arthritis- occasionally unc ontrolled symptoms- recommend pt to take antiinflammatory as directed for pain control.Use tylenol for break through pain symptoms.Start mobic dailyLeg length discrepency - recommended pt to place: dr darshana reddy- 2 in the left shoe 02/16/2012 Appointment: Kim Walker WPtel: [facility] Follow up 02/16/2012 Patient Education: Patient Medication [...] for re-eval. 01/24/2012 Appointment: Kim Walker WPtel: [phone] [facility] Other 01/24/2012 Patient Education: Patient Medication Summary [...] daily. 10/31/2011 Appointment: Kim Walker WPtel: [phone] [facility] [facility] 10/31/2011 Patient Education: Patient Medication [...] time insomnia. 10/13/2011 Appointment: Kim Walker WPtel: [address] [place], [place] [phone] New Patient 10/13/2011 Patient Education: Patient Medication [...]
--- OUTSIDE RECORDS SUMMARY | 2019-12-04 07:07 | XMS REPORT | CCD ---
Author Author Linda Walker Organization Kim Walker MD, [facility] Address [address] [place] [address] Phone Care Team Providers Care Rolloff Driver Name Role Phone PP Unavailable CCM Unavailable Summary Purpose Interface Exchange Insurance Providers Payer name Policy type / Coverage type Covered alliance party ID Effective Begin Date Effective End Date RACHEL GBA [id number] 2017 Unknown [employer] [id number] Unknown Family history Mother Diagnosis Age At Onset Breast cancer Unknown Brother Diagnosis Age At Onset Arthritis Unknown Grandson Diagnosis Age At Onset Diabetes Unknown Social History Social History Element Codes Description Effective Dates Tobacco history SNOMED CT: 1311728 Former smoker quit 03/201301/22/2014 Employment Unknown Retir [...] Fill Instructions Xanax 0.25 mg tablet RxNorm: 502589 Tablet(s) TAKE 1/2 TO 1 (ONE-HALF TO ONE ) TABLET BY MOUTH 4 TIMES DAILY NEEDED 08/28/2018 No Stop Date Active Cartia XT 180 mg cap clifford,extended release RxNorm: 062700 TAKE 1 CAPSULE BY ALEXANDER TH AT BEDTIME 07/30/2018 No Stop Date Active Prozac 40 mg capsule RxNorm: 923272 TAKE ONE CAPSULE BY MOUTH ONCE DAILY 06/08/2018 No Stop Date Active Xanax 0.25 mg tablet RxNorm: 276123 TAKE 1/2 TO 1 (ONE-HALF TO ONE) TABLET B Y MOUTH 4 TIMES DAILY NEEDED 05/18/2018 No Stop Date Active Synthroid 75 mcg tablet RxNorm: 577925 1 Tablet(s) PO daily 03/29/2018 09/24/2018 Inactive will call for refill when ready Xanax 0.25 mg tablet RxNorm: 047493 1/2 - 1 Tablet(s) PO QID as needed anxie ty attack 01/24/2018 05/18/2018 Inactive Synthroid 25 mcg tablet RxNorm: 579195 1 Tablet(s) PO daily 12/15/2017 03/28/2018 Inactive take on an empty stomach by itself Flagyl 500 mg tablet RxNorm: 802136 1 Tablet(s) PO TID 12/15/2017 12/14/2017 Inactive Flagyl 500 mg tablet RxNorm: 701273 1 Tablet(s) PO TID 12/15/2017 12/24/2017 Inactive Synthroid 25 mcg tablet RxNorm: 595995 1 Tablet(s) PO daily 12/15/2017 12/14/2017 Inactive Fish Oil 360 mg-1,20 0 mg capsule,delayed release RxNorm: 1 Capsule(s) PO BID 12/14/2017 No Stop Date Active Xifaxan 550 mg tablet RxNorm: 851208 1 Tablet(s) PO TID 12/14/2017 12/27/2017 Inactive Xanax 0.25 mg tablet RxNorm: 684474 1/2 - 1 Tablet(s) PO QID as needed anxie ty attack 12/01/2017 07/11/2018 Inactive Xanax 0.25 mg tablet RxNorm: 899871 1/2 - 1 Tablet(s) PO QID as needed anxie ty attack 08/22/2017 08/28/2017 Inactive Cartia XT 180 mg cap clifford,extended release RxNorm: 770488 Capsule(s) TAKE ONE C APSULE BY MOUTH ONCE DAILY AT BEDTIME 08/04/2017 07/29/2018 Inactive Prozac 40 mg capsule RxNorm: 682640 Capsule(s) TAKE ONE CAPSULE BY MOUTH ONC E DAILY 06/08/2017 06/07/2018 Inactive Prozac 40 mg capsule RxNorm: 459534 TAKE ONE CAPSULE BY MOUTH ONCE DAILY 05/30/2017 06/07/2017 In active Cartia XT 180 mg cap clifford,extended release RxNorm: 043379 TAKE ONE CAPSULE BY M OUTH ONCE DAILY AT BEDTIME 05/08/2017 08/03/2017 Inactive Prozac 40 mg capsule RxNorm: 687485 TAKE ONE CAPSULE BY MOUTH ONCE DAILY 02/03/2017 05/29/2017 In active Eliquis 5 mg tablet RxNorm: 8461933 1 Tablet(s) PO BID 11/09/2016 12/05/2016 Inactive Eliquis 5 mg tablet RxNorm: 2422258 1 Tablet(s) PO BID 11/09/2016 11/08/2016 Inactive Cartia XT 180 mg cap clifford,extended release RxNorm: 816343 1 Capsule(s) PO QHS 11/08/2016 05/06/2017 In active Prozac 40 mg capsule RxNorm: 382621 TAKE ONE CAPSULE BY MOUTH ONCE DAILY 11/07/2016 02/02/2017 In active Phenergan with Codei ne Syrup RxNorm: 2.5 Milliliter(s) PO QHS as needed 10/28/2016 07/11/2018 In active levofloxacin 500 mg tablet RxNorm: 533740 1 Tablet(s) PO daily 10/28/2016 11/06/2016 Inactive Prozac 40 mg capsule RxNorm: 468460 TAKE ONE CAPSULE BY MOUTH ONCE DAILY 08/01/2016 10/29/2016 In active Prozac 40 mg capsule RxNorm: 085665 1 Capsule(s) PO daily 11/05/2015 05/02/2016 Inactive [SAVINGS FOR UNINSURED PATIENTS -- BIN:0 01569, PCN: [id number], Group: [id number], ID# [id number], Process claim through [employer], for questions: . THIS IS NOT INSURANCE.] Xanax 0.25 mg tablet RxNorm: 108253 1/2 - 1 Tablet(s) PO QID as needed anxie ty attack 11/02/2015 01/29/2016 Inactive Prozac 40 mg capsule RxNorm: 910959 Capsule(s) TAKE ONE CAPSULE BY MOUTH ONC E DAILY 08/12/2015 08/11/2015 Inactive NEEDS APPT Prozac 40 mg capsule RxNorm: 183778 TAKE ONE CAPSULE BY MOUTH ONCE DAILY 08/12/2015 07/31/2016 In active hydrocortisone aceta te 25 mg rectal suppository RxNorm: 5098363 1 Suppository RTL QH S 10/02/2014 07/11/2018 Inactive daily HS x 1 week, then twice weekly the n as needed Prozac 40 mg capsule RxNorm: 237797 TAKE ONE CAPSULE BY MOUTH ONCE DAILY 07/31/2014 01/26/2015 In active Prozac 40 mg capsule RxNorm: 407011 1 Capsule(s) PO daily 07/30/2014 02/24/2015 Inactive [SAVINGS FOR NON-COVERED DRUGS -- BIN:00 3585, PCN: [id number], Group: XXXXX, ID# [id number], Questions: . THIS IS NOT INSURANCE.] Xanax 0.25 mg tablet RxNorm: 989329 1/2 - 1 Tablet(s) PO QID as needed anxie ty attack 01/22/2014 03/22/2014 Inactive Prozac 40 mg capsule RxNorm: 237296 1 Capsule(s) PO daily 01/22/2014 07/20/2014 Inactive [SAVINGS FOR UNINSURED PATIENTS -- BIN:0 63829, PCN: ASPROD1, Group: [id number], ID# [id number], Process claim through [employer], for questions: . THIS IS NOT INSURANCE.] Prozac 20 mg capsule RxNorm: 066263 1 Capsule(s) PO daily 08/08/2013 01/21/2014 Inactive Prozac 20 mg capsule RxNorm: 108329 1 Capsule(s) PO daily 07/19/2013 08/07/2013 Inactive Prozac 20 mg capsule RxNorm: 691667 1 Capsule(s) PO daily 02/12/2013 07/18/2013 Inactive Influenza Virus Vacc ine 0.5 mL RxNorm: IM 02/16/2012 02/16/2012 Inactive meloxicam 7.5 mg tablet RxNorm: 438427 1 Tablet(s) PO BID ONE PILL IN MORNING, IF PAIN IS UNCONTROLLED, MAY TAKE ONE EXTRA PILL IN THe PM do not take with ibuprofen or aleve 01/24/2012 02/15/2012 Inactive Aspirin Low Dose 81 mg tablet,delayed release RxNorm: 813670 1 Tablet(s) PO daily No Start Date Active Tylenol 500 mg RxNorm: 1 Tablet(s) PO BID No Start Date Active Repatha SureClick 14 0 mg/mL subcutaneous pen injector RxNorm: 3318681 1 Milliliter(s) SQ Q2 weeks No Start Date Active amiodarone 200 mg ta blet RxNorm: 959399 1/2 Tablet(s) PO daily No Start Date Active melatonin 10 mg tablet RxNorm: 2668419 1 Tablet(s) PO QHS No Start Date Active pantoprazole 40 mg t ablet,delayed release RxNorm: 911600 1 Tablet(s) PO daily No Start Date Active isosorbide mononitra te ER 30 mg tablet,extended release 24 hr RxNorm: 419301 1 Tablet(s) PO daily No Start Date Active melatonin 3 mg Tab RxNorm: 109804 2 Tablet(s) PO QHS No Start Date 12/13/2017 Inactive Xarelto 20 mg tablet RxNorm: 8247161 1 Tablet(s) PO QPM No Start Date 12/13/2017 Inactive Tylenol 8 Hour 650 m g tablet,extended release RxNorm: 2380568 1 Tablet(s) PO BID No Start Date 07/12/2018 Inactive Calcium 600 + D(3) 6 00 mg (1,500 mg)-400 unit Tab RxNorm: 066747 1 Tablet(s) PO QPM No Start Date 12/13/2017 Inactive prasugrel 10 mg tablet RxNorm: 933500 1 Tablet(s) PO daily No Start Date 07/11/2018 Inactive Fish Oil 360 mg-1,20 0 mg capsule,delayed release RxNorm: 1 Capsule(s) PO daily No Start Date 12/13/2017 Inactive PreserVision AREDS 2 oral RxNorm: 5001451 oral No Start Date 07/11/2018 Inactive Prozac 20 mg capsule RxNorm: 204670 1 Capsule(s) PO daily No Start Date 02/11/2013 Inactive Breo Ellipta inhalation RxNorm: 8363848 inhalation No Start Date 12/13/2017 Inactive fenofibrate nanocrys tallized 145 mg tablet RxNorm: 052013 Tablet(s) PO daily No Start Date 10/31/2016 Inactive Centrum Silver Ultra Women's Tab RxNorm: 1 Tablet(s) PO QHS No Start Date 10/31/2016 Inactive Cartia XT 120 mg cap lcifford,extended release RxNorm: 197695 1 Capsule(s) PO QHS No Start Date [...] Observation Code Item Item Code Result Date Tsh Ord6 TSH (3rd IS) 3.54 uIU/mL 09/28/2018 Tsh Ord6 TSH (3rd IS) 4.90 uIU/mL 06/25/2018 Free T4 [id number] FREE T4 1.15 ng/dL 06/25/2018 Free T4 Aqk404 FREE T4 0.52 ng/dL 03/22/2018 Tsh Ord6 [...] 33.4 pg 12/15/2017 Cbc With Differential Ord2 Delta% 17.3 % 12/15/2017 Cbc With Differential Ord2 [...] 0.78 K/ul 12/15/2017 Cbc With Differential Ord2 Delta ABS# 0.4 K/ul 12/15/2017 Cbc With Differential Ord2 Eos ABS# 0.1 K/ul 12/15/2017 Cbc With Differential Ord2 Baso ABS# 0.0 K/ul 12/15/2017 Free T4 Mdn617 FREE T4 0.34 ng/dL 12/15/2017 Test(s) Not Perfromed [id number] Test(s) Not Performed Test(s) Not Performed. See Below: 12/14/2017 Test(s) Not Perfromed [id number] TEST NAME CBC 12/14/2017 Test(s) Not Perfromed [id number] Rejection Reason No Suitable Specimen Receive d 12/14/2017 Test(s) Not Perfromed [id number] COMMENT Grace notified for redraw 12/14/2017 Test(s) Not Perfromed [id number] Pattern Duplicator Wale Whitman 12/14/2017 Tsh Ord6 TSH (3rd IS) 48.79 uIU/mL 12/14/2017 Comp Metabolic Xjl781 NA 137 mEq/L 12/14/2017 Comp Metabolic Liw015 K 4.3 mEq/L 12/14/2017 Comp Metabolic Znp018 CL 101 mEq/L 12/14/2017 Comp Metabolic Lfq417 CO2 29.0 mEq/L 12/14/2017 Comp Metabolic Bfd391 AN ION GAP 11 12/14/2017 Comp Metabolic Tag963 GL UCOSE 81 mg/dL 12/14/2017 Comp Metabolic Rbd134 Cr eat 0.7 mg/dL 12/14/2017 Comp Metabolic Bym679 eG FR 86 ml/min/1.73m2 12/14 Comp Metabolic Qmv830 BUN 14 mg/dL 12/14/2017 Comp Metabolic Wbd940 B/ C Ratio 19.7 Ratio 12/14/2017 Comp Metabolic Hom257 CA LCIUM 9.2 mg/dL 12/14/2017 Comp Metabolic Ekd457 AL K PHOS 112 U/L 12/14/2017 Comp Metabolic Bwm111 T(SGOT) 25 U/L 12/14/2017 Comp Metabolic Fey603 AL T(SGPT) 20 U/L 12/14/2017 Comp Metabolic Kal980 BI LI T 0.8 mg/dL 12/14/2017 Comp Metabolic Hme562 AL BUMIN 4.1 g/dL 12/14/2017 Comp Metabolic Mve628 TP RO 6.9 g/dL 12/14/2017 Comp Metabolic Ihu443 GL OB 2.9 g/dL 12/14/2017 Comp Metabolic Nmz746 A/ G Ratio 1.4 Ratio 12/14/2017 Comp Metabolic Vpn750 Os mo 273 mOsmo 12/14/2017 LIPID GRP HDL TE ST 70 MG/DL 01/23/2014 LIPID GRP TRIG 134 MG/DL 01/23/2014 LIPID GRP TEST L DL 117 MG/DL 01/23/2014 LIPID GRP CHOL 214 MG/DL 01/23/2014 LIPID GRP RCHOL/ HDL 3.06 RATIO 01/23/2014 LIPID GRP NON-HD L CH 144 MG/DL 01/23/2014 TSH 9645354 TSH 1.784 uIU/ML 01/23/2014 CBC 9844674 WBC 4.7 10e9/L 01/23/2014 CBC 6040936 RBC 4.10 10e12/L 01/23/2014 CBC 9850352 HGB 13.3 g/dL 01/23/2014 CBC 1417681 HCT DET 39.2 % 01/23/2014 CBC 6796346 MCV 95.6 fL 01/23/2014 CBC 5474418 MCH 32.4 pg 01/23/2014 CBC 7301786 MCHC 33.9 g/dL 01/23/2014 CBC 4760634 PLT 232 10e9/L 01/23/2014 CBC 8876698 MPV 10.9 fL 01/23/2014 CBC 8201632 DORON % 57.4 % 01/23/2014 CBC 9540525 LY % 28.0 % 01/23/2014 CBC 0339376 MON % 12.9 % 01/23/2014 CBC 8128319 EOS % 1.3 % 01/23/2014 CBC 5378079 BASO % 0.4 % 01/23/2014 CBC 5476034 RDW 12.1 % 01/23/2014 CBC 0383733 ABS DORON 2.70 10e9/L 01/23/2014 CBC 3748323 ABS LYMPH 1.32 10e9/L 01/23/2014 CBC 8493836 ABS MONO 0.61 10e9/L 01/23/2014 CBC 1541132 ABS EOS 0.06 10e9/L 01/23/2014 CBC 3151165 ABS BASO 0.02 10e9/L 01/23/2014 CBC 3558746 RDW-SD 41.2 fL 01/23/2014 CHEM 14 1246946 AST 18 U/L 01/23/2014 CHEM 14 8589390 ALT 13 IU/L 01/23/2014 CHEM 14 9667469 BUN 16 MG/DL 01/23/2014 CHEM 14 0414345 ALBUMIN 4.2 GM/DL 01/23/2014 CHEM 14 3737570 CHLORIDE 105 MMOL/L 01/23/2014 CHEM 14 5115306 BILI TOT 0.7 MG/DL 01/23/2014 CHEM 14 8348240 ALK PHOS 61 U/L 01/23/2014 CHEM 14 8013045 SODIUM 138 MMOL/L 01/23/2014 CHEM 14 2958148 CREATINI NE 0.65 MG/DL 01/23/2014 CHEM 14 0498333 CALCIUM 9.5 MG/DL 01/23/2014 CHEM 14 0019889 POTASSIUM 4.4 MMOL/L 01/23/2014 CHEM 14 1371273 PROT TOT 6.8 GM/DL 01/23/2014 CHEM 14 8382350 GLUCOSE 93 MG/DL 01/23/2014 CHEM 14 7734610 BICARB 28 MMOL/L 01/23/2014 CHEM 14 9939885 ANION GAP 5 MEQ/L 01/23/2014 GFR CALC 9846193 GFR AA >60 ML/MIN 01/23/2014 GFR CALC 7866239 GFR NON -AA >60 ML/MIN 01/23/2014 URIC ACID 3360972 URIC A KYLE 5.7 MG/DL 10/13/2011 CHEM 14 9299849 AST 19 U/L 10/13/2011 CHEM 14 9661810 ALT 16 U/L 10/13/2011 CHEM 14 2678859 BUN 21 MG/DL 10/13/2011 CHEM 14 8676242 ALBUMIN 4.2 GM/DL 10/13/2011 CHEM 14 3666775 CHLORIDE 103 MMOL/L 10/13/2011 CHEM 14 2074272 BILI TOT 0.6 MG/DL 10/13/2011 CHEM 14 5039365 ALK PHOS 71 U/L 10/13/2011 CHEM 14 9066433 SODIUM 141 MMOL/L 10/13/2011 CHEM 14 9014084 CREATINI NE 0.65 MG/DL 10/13/2011 CHEM 14 1468580 CALCIUM 9.3 MG/DL 10/13/2011 CHEM 14 4866485 POTASSIUM 4.2 MMOL/L 10/13/2011 CHEM 14 9535120 PROT TOT 6.8 GM/DL 10/13/2011 CHEM 14 2372360 GLUCOSE 69 MG/DL 10/13/2011 CHEM 14 4161223 BICARB 27 MMOL/L 10/13/2011 CHEM 14 6586867 ANION GAP 11 MMOL/L 10/13/2011 CBC 1316760 WBC 6.1 10e9/L 10/13/2011 CBC 8628923 RBC 4.11 10e12/L 10/13/2011 CBC 4607880 HGB 13.3 g/dL 10/13/2011 CBC 4095010 HCT DET 39.6 % 10/13/2011 CBC 3758976 MCV 96.4 fL 10/13/2011 CBC 5953189 MCH 32.4 pg 10/13/2011 CBC 5400350 MCHC 33.6 g/dL 10/13/2011 CBC 8390554 PLT 238 10e9/L 10/13/2011 CBC 0887894 MPV 11.7 fL 10/13/2011 CBC 5853532 DORON % 50.2 % 10/13/2011 CBC 6530306 LY % 35.6 % 10/13/2011 CBC 3624515 MON % 12.7 % 10/13/2011 CBC 1296139 EOS % 1.2 % 10/13/2011 CBC 1536027 BASO % 0.3 % 10/13/2011 CBC 8971362 RDW 12.3 % 10/13/2011 CBC 6110161 ABS DORON 3.06 10e9/L 10/13/2011 CBC 0633417 ABS LYMPH 2.17 10e9/L 10/13/2011 CBC 3452977 ABS MONO 0.77 10e9/L 10/13/2011 CBC 8989053 ABS EOS 0.07 10e9/L 10/13/2011 CBC 2643864 ABS BASO 0.02 10e9/L 10/13/2011 CBC 9502254 RDW-SD 42.3 fL 10/13/2011 GFR CALC 9348960 GFR AA >60 ML/MIN 10/13/2011 GFR CALC 4580837 GFR NON -AA >60 ML/MIN 10/13/2011 ESR 7248056 ESR 14 MM/HR 10/13/2011 Review of Systems [...] rate 11/01/2016 None Full Exam - General 1995 Cardiovascular extremities Overall: no clubbing 11/01/2016 None [...] 1995 Musculoskeletal lower extremity Inspection - foot: swelling 10/31/2011 None Full Exam - General 1995 Musculoskeletal lower extremity Palpation - foot: a normal exam 10/31/2011 None Full Exam - General 1995 Musculoskeletal lower extremity Palpation - foot: swelling [...] SY CPT-4: G8553 01/24/2012 ROUTINE VENIPUNCTURE CPT-4: 33810 10/13/2011 Vital Signs Date Vital 07/12/2018 Blood Pressure 1: 126/68 Code: 8480-6 BMI: 28.4 Code: 00733-3 Heart Rate 1: 71 bpm Height: 5' SpO2: 97% Weight: 148 lbs 12/14/2017 Blood Pressure 1: 138/80 Code: 8480-6 BMI: 28.8 Code: 79566-3 Heart Rate 1: 73 bpm Height: 5' SpO2: 98% Weight: 150 lbs 12/06/2016 Blood Pressure 1: 146/82 Code: 8480-6 BMI: 26.8 Code: 27083-5 Heart Rate 1: 58 bpm Height: 5' [...] 1: 118/74 Code: 8480-6 BMI: 25.7 Code: 56842-4 Heart Rate 1: 64 bpm Height: 5' SpO2: 98% Weight: 134 lbs 10/02/2014 Blood Pressure 1: 136/88 Code: 8480-6 BMI: 25.9 Code: 61103-5 Heart Rate 1: 68 bpm Height: 5' SpO2: 98% Weight: 135 lbs 01/22/2014 Blood Pressure 1: 122/64 Code: 8480-6 BMI: 25.7 Code: 63284-1 Heart Rate 1: 72 bpm Height: 5' Weight: 134 lbs 02/07/2013 Blood Pressure 1: 140/80 Code: 8480-6 BMI: 23.6 Code: 22037-9 Height: 5' Weight: 123 lbs 02/16/2012 Blood Pressure 1: 102/68 Code: 8480-6 Heart Rate 1: 68 bpm Respiratory Rate: 18 bpm Weight: 131 lbs 01/24/2012 Blood Pressure 1: 120/72 Code: 8480-6 Heart Rate 1: 72 bpm Respiratory Rate: 16 bpm Weight: 133 lbs 10/31/2011 Blood Pressure 1: 136/84 Code: 8480-6 BMI: 23.2 Code: 93157-0 Heart Rate 1: 74 bpm Height: 5'2" Respiratory Rate: 16 bpm Weight: 127 lbs 10/13/2011 Blood Pressure 1: 138/84 Code: 8480-6 BMI: 23.2 Code: 16603-1 Heart Rate 1: 80 bpm Height: 5'2" Respiratory Rate: 16 bpm Weight: 127 lbs Functional Status No Functional Status data History of Present Illness Symptom Name Status Resu lt Effective Date Notes Onset and Resolution o ngoing 07/12/2018 None Location in the [facility] of in the lower back [...] activity 12/06/2016 cardioversion cough Location in the [facility] 11/08/2016 None cough Quality acute 11/08/2016 [...] 11/08/2016 None Hospital Follow Up _ [facility] 11/08/2016 None Hospital Follow Up Quality acute illness 11/08/2016 None Hospital Follow Up Pertinent Findings Other: cough 11/08/2016 None Hospital Follow Up _ inf ection 11/01/2016 None Hospital Follow Up _ [facility] 11/01/2016 None Hospital Follow Up Quality acute illness 11/01/2016 None Hospital Follow Up Pertinent Findings Other: cough 11/01/2016 None cough Location in the [facility] 11/01/2016 None cough Quality acute 11/01/2016 None [...] Quality blee ding 02/07/2013 None hemorrhoids Quality chronometer tester holly 02/07/2013 None hemorrhoids Onset and Resolution [...] Encounters Encounter Performer Loca tion Codes Date ([id number]) 34720 EST. P ATIENT, LEVEL III Diagnosis: Low back pain[ICD10: M54.5] Jennifer Walker MD, [facility] CPT- 4: 32564 07/12/2018 ([id number]) 71620 EST. P ATIENT, LEVEL IV Diagnosis: Paroxysmal atrial fibrillation[ICD10: I48.0] Diagnosis: Abnormal weight gain[ICD10: R63.5] Diagnosis: Irritable bowel syndrome with diarrhea[ICD10: K58.0] Jennifer Walker MD, [facility] CPT-4: 40818 12/14/2017 ([id number]) 39256 EST. P ATIENT, LEVEL III Diagnosis: Paroxysmal atrial fibrillation[ICD10: I48.0] Jennifer Walker MD, [facility] CPT-4: 42846 12/06/2016 ([id number]) 92970 EST. P ATIENT, LEVEL IV Diagnosis: Paroxysmal atrial fibrillation[ICD10: I48.0] Diagnosis: Pneumonia, unspecified organism[ICD10: J18.9] Jennifer Walker MD, [facility] CPT-4: 23997 11/08/2016 ([id number]) 26273 EST. P ATIENT, LEVEL III Diagnosis: Cough[ICD10: R05] Diagnosis: Pneumonia, unspecified organism[ICD10: J18.9] Jennifer Walker MD, [facility] CPT-4: 96803 11/01/2016 ([id number]) 59350 EST. P ATIENT, LEVEL III Diagnosis: Generalized anxiety disorder[ICD10: F41.1] Jennifer Walker MD, [facility] CPT-4: 40571 11/05/2015 ([id number]) 34478 EST. P ATIENT, LEVEL III Diagnosis: Rectal bleeding[ICD9: 569.3] Jennifer Walker MD, [facility] CPT- 4: 78489 10/02/2014 ([id number]) 44232 EST. P ATIENT, LEVEL III Diagnosis: Anxiety, generalized[ICD9: 300.02] Diagnosis: Depression[ICD9: 311] Kim Walkre MD, [facility] CPT-4: 18925 01/22/2014 ([id number]) 34356 EST. P ATIENT, LEVEL III Diagnosis: Bloody feces[ICD9: 578.1] Kim Walker MD, [facility] CPT-4: 70157 02/07/2013 ([id number]) 52607 EST. P ATIENT, LEVEL III Diagnosis: OSTEOARTH NOS-UNSPEC[ICD9: 715.90] Diagnosis: MUSCLE/LIGAMENT DIS NEC[ICD9: 728.89] [facility] CPT-4: 46751 02/16/2012 ([id number]) 16224 EST. P ATIENT, LEVEL III Diagnosis: Iliotibial band syndrome[ICD9: 728.89] Diagnosis: OSTEOARTH NOS-UNSPEC[ICD9: 715.90] Diagnosis: PAIN IN LIMB[ICD9: 729.5] [facility] CPT-4: 31368 01/24/2012 ([id number]) 13338 EST. P ATIENT, LEVEL IV Diagnosis: OSTEOARTH NOS-UNSPEC[ICD9: 715.90] Diagnosis: ROUTINE GYNE EXAM[ICD9: V72.31] [facility] CPT-4: 10717 10/31/2011 OFFICE VISIT, NEW - LEVEL 4 Diagnosis: Osteoarthritis[ICD9: 715.90] Diagnosis: INSOMNIA NOS[ICD9: 780.52] Diagnosis: PAIN IN LIMB[ICD9: 729.5] [facility] CPT-4: 99475 10/13/2011 Plan of Care Planned Activity Notes C odes Status Date Visit Plan: Low back pain- patient' s pain is actually improved -recommend MRI -refer to Dr Crouch if needed- okay to use tylenol for pain -also discussed PT if indicated-patient verbalized understanding of plan. 07/12/2018 Appointment: Jennifer Vera WPtel: [address] [place], [place] [phone] (30 min) Complex 07/12/2018 Patient Education: Patient Medication Summary Completed 07/12/2018 Patient Education: Back Pain Completed 07/12/2018 Care Plan: MRI LUMBAR SPINE W/O DYE LOINC : 55036-1 Pending 07/12/2018 Patient Education: Patient Medication Summary [...] TSH 12/14/2017 Appointment: Jennifer Vera WPtel: [phone] (15 min) Moderate 12/14/2017 Patient Education: Patient Medication Summary Completed 12/14/2017 Care Plan: Cbc With Differential Pending 12/14/2017 Visit Plan: Afib-converted to NSR b y Dr Solorzano-on xarelto- instructed patient to report if they start to feel as if their heart rate is becoming uncontrolled or other symptoms develop. Patient verbalized understan zayra. 12/06/2016 Appointment: Jennifer Vera WPtel: [facility]3 [phone] (15 min) Moderate 12/06/2016 Patient Education: Patient Medication Summary Completed 12/06/2016 Visit Plan: Afib-ordered EKG to con firm-increase cartia for heart rate control and start eliquis 5mg twice daily-follow up with Dr Solorzano Pneumonia-finished abx-no further treatment indicated 11/08/2016 Appointment: Jennifer Vera WPtel: [address] [place], [place] [phone] (30 min) Complex 11/08/2016 Patient Education: Patient Medication Summary Completed 11/08/2016 Visit Plan: Pneumonia-on abx per ur gent-continue current treatment and follow up in 1 week to ensure resolution of symptoms. Call sooner for worsening or new symptoms. Patient verbalized understanding of plan. 11/01/2016 Appointment: Jennifer Vera WPtel: [phone] (15 min) Moderate 11/01/2016 Patient Education: Patient [...] medications. 11/05/2015 Appointment: Jennifer Vera WPtel: [phone] (15 min) Moderate 11/05/2015 Patient Education: Patient [...] attacks 01/22/2014 Appointment: Kim Walker WPtel: [address] [place], [place] [phone] Sick 01/22/2014 Patient Education: Patient Medication Summary Completed 01/22/2014 Care Plan: COMPLETE CBC AUTOMATED LOINC : 61840-5 Ordered 01/22/2014 Visit Plan: Blood in stool [...] up. 02/07/2013 Appointment: Kim Walker WPtel: [facility] Follow up 02/07/2013 Patient Education: Patient Medication Summary Completed 02/07/2013 Visit Plan: Arthritis- occasionally uncontrolled symptoms- recommend pt to take antiinflammatory as directed for pain control. Use tylenol for break through pain symptoms.Start mobic daily Leg length discrepency - recommended pt to place: dr gilliland inserts- 2 in the left shoe 02/16/2012 Appointment: Kim Walker WPtel: [phone] Follow up 02/16/2012 Patient Education: [...] re-eval. 01/24/2012 Appointment: Kim Walker WPtel: [facility] [address] 01/24/2012 Patient Education: Patient Medication Summary Completed [...] times daily. 10/31/2011 Appointment: Kim Walker WPtel: [address] [place] [address] [facility] 10/31/2011 Patient Education: Patient Medication [...] time insomnia. 10/13/2011 Appointment: [facility] [address] [facility] [place] New Patient 10/13/2011 Patient Education: Patient [...]
--- OUTSIDE RECORDS SUMMARY | 2019-12-04 07:08 | XMS REPORT | CCD ---
Author Author Linda Walker Organization Kim Walker MD, [facility] Address [address] [place] [address] Phone Care Team Providers Care Undercover Cop Name Role Phone PP Unavailable CCM Unavailable Summary Purpose Interface Exchange Insurance Providers Payer name Policy type / Coverage type Covered republican ID Effective Begin Date Effective End Date RACHEL GBA [id number] 2017 Unknown [employer] [id number] Unknown Family history Mother Diagnosis Age At Onset Breast cancer Unknown Brother Diagnosis Age At Onset Arthritis Unknown Grandson Diagnosis Age At Onset Diabetes Unknown Social History Social History Element Codes Description Effective Dates Tobacco history SNOMED CT: 9146890 Former smoker quit 03/201301/22/2014 Employment Unknown Retir [...] Fill Instructions Xanax 0.25 mg tablet RxNorm: 908917 Tablet(s) TAKE 1/2 TO 1 (ONE-HALF TO ONE ) TABLET BY MOUTH 4 TIMES DAILY NEEDED 08/28/2018 No Stop Date Active Cartia XT 180 mg cap clifford,extended release RxNorm: 106357 TAKE 1 CAPSULE BY ALEXANDER TH AT BEDTIME 07/30/2018 No Stop Date Active Prozac 40 mg capsule RxNorm: 619693 TAKE ONE CAPSULE BY MOUTH ONCE DAILY 06/08/2018 No Stop Date Active Xanax 0.25 mg tablet RxNorm: 930383 TAKE 1/2 TO 1 (ONE-HALF TO ONE) TABLET B Y MOUTH 4 TIMES DAILY NEEDED 05/18/2018 No Stop Date Active Synthroid 75 mcg tablet RxNorm: 674252 1 Tablet(s) PO daily 03/29/2018 09/24/2018 Active will call for refill when ready Xanax 0.25 mg tablet RxNorm: 095062 1/2 - 1 Tablet(s) PO QID as needed anxie ty attack 01/24/2018 05/18/2018 Inactive Synthroid 25 mcg tablet RxNorm: 432543 1 Tablet(s) PO daily 12/15/2017 03/28/2018 Inactive take on an empty stomach by itself Flagyl 500 mg tablet RxNorm: 987359 1 Tablet(s) PO TID 12/15/2017 12/14/2017 Inactive Flagyl 500 mg tablet RxNorm: 867513 1 Tablet(s) PO TID 12/15/2017 12/24/2017 Inactive Synthroid 25 mcg tablet RxNorm: 550875 1 Tablet(s) PO daily 12/15/2017 12/14/2017 Inactive Fish Oil 360 mg-1,20 0 mg capsule,delayed release RxNorm: 1 Capsule(s) PO BID 12/14/2017 No Stop Date Active Xifaxan 550 mg tablet RxNorm: 556850 1 Tablet(s) PO TID 12/14/2017 12/27/2017 Inactive Xanax 0.25 mg tablet RxNorm: 234460 1/2 - 1 Tablet(s) PO QID as needed anxie ty attack 12/01/2017 07/11/2018 Inactive Xanax 0.25 mg tablet RxNorm: 073731 1/2 - 1 Tablet(s) PO QID as needed anxie ty attack 08/22/2017 08/28/2017 Inactive Cartia XT 180 mg cap clifford,extended release RxNorm: 639236 Capsule(s) TAKE ONE C APSULE BY MOUTH ONCE DAILY AT BEDTIME 08/04/2017 07/29/2018 Inactive Prozac 40 mg capsule RxNorm: 128455 Capsule(s) TAKE ONE CAPSULE BY MOUTH ONC E DAILY 06/08/2017 06/07/2018 Inactive Prozac 40 mg capsule RxNorm: 867728 TAKE ONE CAPSULE BY MOUTH ONCE DAILY 05/30/2017 06/07/2017 In active Cartia XT 180 mg cap clifford,extended release RxNorm: 809101 TAKE ONE CAPSULE BY M OUTH ONCE DAILY AT BEDTIME 05/08/2017 08/03/2017 Inactive Prozac 40 mg capsule RxNorm: 739189 TAKE ONE CAPSULE BY MOUTH ONCE DAILY 02/03/2017 05/29/2017 In active Eliquis 5 mg tablet RxNorm: 9668569 1 Tablet(s) PO BID 11/09/2016 12/05/2016 Inactive Eliquis 5 mg tablet RxNorm: 2698367 1 Tablet(s) PO BID 11/09/2016 11/08/2016 Inactive Cartia XT 180 mg cap clifford,extended release RxNorm: 734220 1 Capsule(s) PO QHS 11/08/2016 05/06/2017 In active Prozac 40 mg capsule RxNorm: 114413 TAKE ONE CAPSULE BY MOUTH ONCE DAILY 11/07/2016 02/02/2017 In active Phenergan with Codei ne Syrup RxNorm: 2.5 Milliliter(s) PO QHS as needed 10/28/2016 07/11/2018 In active levofloxacin 500 mg tablet RxNorm: 760386 1 Tablet(s) PO daily 10/28/2016 11/06/2016 Inactive Prozac 40 mg capsule RxNorm: 783079 TAKE ONE CAPSULE BY MOUTH ONCE DAILY 08/01/2016 10/29/2016 In active Prozac 40 mg capsule RxNorm: 513857 1 Capsule(s) PO daily 11/05/2015 05/02/2016 Inactive [SAVINGS FOR UNINSURED PATIENTS -- BIN:0 35411, PCN: ASPROD1, Group: [id number], ID# [id number], Process claim through [employer], for questions: . THIS IS NOT INSURANCE.] Xanax 0.25 mg tablet RxNorm: 656375 1/2 - 1 Tablet(s) PO QID as needed anxie ty attack 11/02/2015 01/29/2016 Inactive Prozac 40 mg capsule RxNorm: 526388 Capsule(s) TAKE ONE CAPSULE BY MOUTH ONC E DAILY 08/12/2015 08/11/2015 Inactive NEEDS APPT Prozac 40 mg capsule RxNorm: 205429 TAKE ONE CAPSULE BY MOUTH ONCE DAILY 08/12/2015 07/31/2016 In active hydrocortisone aceta te 25 mg rectal suppository RxNorm: 8453387 1 Suppository RTL QH S 10/02/2014 07/11/2018 Inactive daily HS x 1 week, then twice weekly the n as needed Prozac 40 mg capsule RxNorm: 460134 TAKE ONE CAPSULE BY MOUTH ONCE DAILY 07/31/2014 01/26/2015 In active Prozac 40 mg capsule RxNorm: 602070 1 Capsule(s) PO daily 07/30/2014 02/24/2015 Inactive [SAVINGS FOR NON-COVERED DRUGS -- BIN:00 3585, PCN: ASPROD1, Group: XXXXX, ID# [id number], Questions: . THIS IS NOT INSURANCE.] Xanax 0.25 mg tablet RxNorm: 043341 1/2 - 1 Tablet(s) PO QID as needed anxie ty attack 01/22/2014 03/22/2014 Inactive Prozac 40 mg capsule RxNorm: 423605 1 Capsule(s) PO daily 01/22/2014 07/20/2014 Inactive [SAVINGS FOR UNINSURED PATIENTS -- BIN:0 00316, PCN: ASPROD1, Group: [id number], ID# [id number], Process claim through [employer], for questions: . THIS IS NOT INSURANCE.] Prozac 20 mg capsule RxNorm: 916188 1 Capsule(s) PO daily 08/08/2013 01/21/2014 Inactive Prozac 20 mg capsule RxNorm: 868286 1 Capsule(s) PO daily 07/19/2013 08/07/2013 Inactive Prozac 20 mg capsule RxNorm: 725059 1 Capsule(s) PO daily 02/12/2013 07/18/2013 Inactive Influenza Virus Vacc ine 0.5 mL RxNorm: IM 02/16/2012 02/16/2012 Inactive meloxicam 7.5 mg tablet RxNorm: 911342 1 Tablet(s) PO BID ONE PILL IN MORNING, IF PAIN IS UNCONTROLLED, MAY TAKE ONE EXTRA PILL IN THe PM do not take with ibuprofen or aleve 01/24/2012 02/15/2012 Inactive Aspirin Low Dose 81 mg tablet,delayed release RxNorm: 892754 1 Tablet(s) PO daily No Start Date Active Tylenol 500 mg RxNorm: 1 Tablet(s) PO BID No Start Date Active Repatha SureClick 14 0 mg/mL subcutaneous pen injector RxNorm: 9567134 1 Milliliter(s) SQ Q2 weeks No Start Date Active amiodarone 200 mg ta blet RxNorm: 530901 1/2 Tablet(s) PO daily No Start Date Active melatonin 10 mg tablet RxNorm: 1354604 1 Tablet(s) PO QHS No Start Date Active pantoprazole 40 mg t ablet,delayed release RxNorm: 590962 1 Tablet(s) PO daily No Start Date Active isosorbide mononitra te ER 30 mg tablet,extended release 24 hr RxNorm: 103435 1 Tablet(s) PO daily No Start Date Active melatonin 3 mg Tab RxNorm: 893002 2 Tablet(s) PO QHS No Start Date 12/13/2017 Inactive Xarelto 20 mg tablet RxNorm: 8713501 1 Tablet(s) PO QPM No Start Date 12/13/2017 Inactive Tylenol 8 Hour 650 m g tablet,extended release RxNorm: 0673210 1 Tablet(s) PO BID No Start Date 07/12/2018 Inactive Calcium 600 + D(3) 6 00 mg (1,500 mg)-400 unit Tab RxNorm: 613403 1 Tablet(s) PO QPM No Start Date 12/13/2017 Inactive prasugrel 10 mg tablet RxNorm: 458890 1 Tablet(s) PO daily No Start Date 07/11/2018 Inactive Fish Oil 360 mg-1,20 0 mg capsule,delayed release RxNorm: 1 Capsule(s) PO daily No Start Date 12/13/2017 Inactive PreserVision AREDS 2 oral RxNorm: 5334596 oral No Start Date 07/11/2018 Inactive Prozac 20 mg capsule RxNorm: 031663 1 Capsule(s) PO daily No Start Date 02/11/2013 Inactive Breo Ellipta inhalation RxNorm: 3123165 inhalation No Start Date 12/13/2017 Inactive fenofibrate nanocrys tallized 145 mg tablet RxNorm: 274110 Tablet(s) PO daily No Start Date 10/31/2016 Inactive Centrum Silver Ultra Women's Tab RxNorm: 1 Tablet(s) PO QHS No Start Date 10/31/2016 Inactive Cartia XT 120 mg cap clifford,extended release RxNorm: 484965 1 Capsule(s) PO QHS No Start Date [...] Result Date Tsh Ord6 TSH (3rd IS) 4.90 uIU/mL 06/25/2018 Free T4 Myk101 FREE T4 1.15 ng/dL 06/25/2018 Free T4 Qio944 FREE T4 0.52 ng/dL 03/22/2018 Tsh Ord6 [...] 33.4 pg 12/15/2017 Cbc With Differential Ord2 Henry% 17.3 % 12/15/2017 Cbc With Differential Ord2 [...] 0.78 K/ul 12/15/2017 Cbc With Differential Ord2 Henry ABS# 0.4 K/ul 12/15/2017 Cbc With Differential Ord2 Eos ABS# 0.1 K/ul 12/15/2017 Cbc With Differential Ord2 Baso ABS# 0.0 K/ul 12/15/2017 Free T4 Uel687 FREE T4 0.34 ng/dL 12/15/2017 Test(s) Not Perfromed [id number] Test(s) Not Performed Test(s) Not Performed. See Below: 12/14/2017 Test(s) Not Perfromed [id number] TEST NAME CBC 12/14/2017 Test(s) Not Perfromed [id number] Rejection Reason No Suitable Specimen Receive d 12/14/2017 Test(s) Not Perfromed [id number] COMMENT Grace notified for redraw 12/14/2017 Test(s) Not Perfromed [id number] Certified Adapted Physical Educator Wale Whitman 12/14/2017 Tsh Ord6 TSH (3rd IS) 48.79 uIU/mL 12/14/2017 Comp Metabolic Axx017 NA 137 mEq/L 12/14/2017 Comp Metabolic Zdz995 K 4.3 mEq/L 12/14/2017 Comp Metabolic Cup853 CL 101 mEq/L 12/14/2017 Comp Metabolic Rkx356 CO2 29.0 mEq/L 12/14/2017 Comp Metabolic Nhq536 AN ION GAP 11 12/14/2017 Comp Metabolic Kvk553 GL UCOSE 81 mg/dL 12/14/2017 Comp Metabolic Xen181 Cr eat 0.7 mg/dL 12/14/2017 Comp Metabolic Hjy794 eG FR 86 ml/min/1.73m2 12/14 Comp Metabolic Myj763 BUN 14 mg/dL 12/14/2017 Comp Metabolic Nts518 B/ C Ratio 19.7 Ratio 12/14/2017 Comp Metabolic Asn935 CA LCIUM 9.2 mg/dL 12/14/2017 Comp Metabolic Bvp370 AL K PHOS 112 U/L 12/14/2017 Comp Metabolic Lsz377 T(SGOT) 25 U/L 12/14/2017 Comp Metabolic Xna504 AL T(SGPT) 20 U/L 12/14/2017 Comp Metabolic Iwv287 BI LI T 0.8 mg/dL 12/14/2017 Comp Metabolic Ozx037 AL BUMIN 4.1 g/dL 12/14/2017 Comp Metabolic Cly336 TP RO 6.9 g/dL 12/14/2017 Comp Metabolic Bui354 GL OB 2.9 g/dL 12/14/2017 Comp Metabolic Arh505 A/ G Ratio 1.4 Ratio 12/14/2017 Comp Metabolic Deo715 Os mo 273 mOsmo 12/14/2017 LIPID GRP HDL TE ST 70 MG/DL 01/23/2014 LIPID GRP TRIG 134 MG/DL 01/23/2014 LIPID GRP TEST L DL 117 MG/DL 01/23/2014 LIPID GRP CHOL 214 MG/DL 01/23/2014 LIPID GRP RCHOL/ HDL 3.06 RATIO 01/23/2014 LIPID GRP NON-HD L CH 144 MG/DL 01/23/2014 TSH 3507253 TSH 1.784 uIU/ML 01/23/2014 CBC 6395574 WBC 4.7 10e9/L 01/23/2014 CBC 1921183 RBC 4.10 10e12/L 01/23/2014 CBC 6396997 HGB 13.3 g/dL 01/23/2014 CBC 2947087 HCT DET 39.2 % 01/23/2014 CBC 1046850 MCV 95.6 fL 01/23/2014 CBC 6901402 MCH 32.4 pg 01/23/2014 CBC 2338889 MCHC 33.9 g/dL 01/23/2014 CBC 6475080 PLT 232 10e9/L 01/23/2014 CBC 0630047 MPV 10.9 fL 01/23/2014 CBC 1226437 DORON % 57.4 % 01/23/2014 CBC 3790748 LY % 28.0 % 01/23/2014 CBC 1393797 MON % 12.9 % 01/23/2014 CBC 4048751 EOS % 1.3 % 01/23/2014 CBC 0158191 BASO % 0.4 % 01/23/2014 CBC 5458261 RDW 12.1 % 01/23/2014 CBC 7374062 ABS DORON 2.70 10e9/L 01/23/2014 CBC 2176286 ABS LYMPH 1.32 10e9/L 01/23/2014 CBC 5082521 ABS MONO 0.61 10e9/L 01/23/2014 CBC 1823215 ABS EOS 0.06 10e9/L 01/23/2014 CBC 1638618 ABS BASO 0.02 10e9/L 01/23/2014 CBC 0374769 RDW-SD 41.2 fL 01/23/2014 CHEM 14 4554705 AST 18 U/L 01/23/2014 CHEM 14 8876718 ALT 13 IU/L 01/23/2014 CHEM 14 8226329 BUN 16 MG/DL 01/23/2014 CHEM 14 5700045 ALBUMIN 4.2 GM/DL 01/23/2014 CHEM 14 8073475 CHLORIDE 105 MMOL/L 01/23/2014 CHEM 14 1600801 BILI TOT 0.7 MG/DL 01/23/2014 CHEM 14 7237179 ALK PHOS 61 U/L 01/23/2014 CHEM 14 8352454 SODIUM 138 MMOL/L 01/23/2014 CHEM 14 3589481 CREATINI NE 0.65 MG/DL 01/23/2014 CHEM 14 5586569 CALCIUM 9.5 MG/DL 01/23/2014 CHEM 14 6578445 POTASSIUM 4.4 MMOL/L 01/23/2014 CHEM 14 3628744 PROT TOT 6.8 GM/DL 01/23/2014 CHEM 14 9070023 GLUCOSE 93 MG/DL 01/23/2014 CHEM 14 0109697 BICARB 28 MMOL/L 01/23/2014 CHEM 14 0062641 ANION GAP 5 MEQ/L 01/23/2014 GFR CALC 3080610 GFR AA >60 ML/MIN 01/23/2014 GFR CALC 4202822 GFR NON -AA >60 ML/MIN 01/23/2014 URIC ACID 6398927 URIC A KYLE 5.7 MG/DL 10/13/2011 CHEM 14 6561819 AST 19 U/L 10/13/2011 CHEM 14 8362190 ALT 16 U/L 10/13/2011 CHEM 14 3026945 BUN 21 MG/DL 10/13/2011 CHEM 14 8469575 ALBUMIN 4.2 GM/DL 10/13/2011 CHEM 14 4773419 CHLORIDE 103 MMOL/L 10/13/2011 CHEM 14 3124673 BILI TOT 0.6 MG/DL 10/13/2011 CHEM 14 7899760 ALK PHOS 71 U/L 10/13/2011 CHEM 14 8383242 SODIUM 141 MMOL/L 10/13/2011 CHEM 14 4047718 CREATINI NE 0.65 MG/DL 10/13/2011 CHEM 14 1017037 CALCIUM 9.3 MG/DL 10/13/2011 CHEM 14 3994505 POTASSIUM 4.2 MMOL/L 10/13/2011 CHEM 14 0258544 PROT TOT 6.8 GM/DL 10/13/2011 CHEM 14 5588183 GLUCOSE 69 MG/DL 10/13/2011 CHEM 14 6870577 BICARB 27 MMOL/L 10/13/2011 CHEM 14 6441315 ANION GAP 11 MMOL/L 10/13/2011 CBC 3106341 WBC 6.1 10e9/L 10/13/2011 CBC 1049991 RBC 4.11 10e12/L 10/13/2011 CBC 3609998 HGB 13.3 g/dL 10/13/2011 CBC 4911541 HCT DET 39.6 % 10/13/2011 CBC 6141626 MCV 96.4 fL 10/13/2011 CBC 2024938 MCH 32.4 pg 10/13/2011 CBC 9534811 MCHC 33.6 g/dL 10/13/2011 CBC 7360142 PLT 238 10e9/L 10/13/2011 CBC 8728625 MPV 11.7 fL 10/13/2011 CBC 8293796 DORON % 50.2 % 10/13/2011 CBC 1892670 LY % 35.6 % 10/13/2011 CBC 5710843 MON % 12.7 % 10/13/2011 CBC 1621932 EOS % 1.2 % 10/13/2011 CBC 6413630 BASO % 0.3 % 10/13/2011 CBC 0763591 RDW 12.3 % 10/13/2011 CBC 5902780 ABS DORON 3.06 10e9/L 10/13/2011 CBC 4071582 ABS LYMPH 2.17 10e9/L 10/13/2011 CBC 4864842 ABS MONO 0.77 10e9/L 10/13/2011 CBC 1951558 ABS EOS 0.07 10e9/L 10/13/2011 CBC 9838582 ABS BASO 0.02 10e9/L 10/13/2011 CBC 5768733 RDW-SD 42.3 fL 10/13/2011 GFR CALC 4124314 GFR AA >60 ML/MIN 10/13/2011 GFR CALC 4457099 GFR NON -AA >60 ML/MIN 10/13/2011 ESR 5843354 ESR 14 MM/HR 10/13/2011 Review of Systems [...] 1995 Musculoskeletal lower extremity Palpation - foot: tender 10/31/2011 None Full Exam - General 1995 Musculoskeletal lower extremity Palpation - foot: warm [...] SY CPT-4: G8553 01/24/2012 ROUTINE VENIPUNCTURE CPT-4: 16824 10/13/2011 Vital Signs Date Vital 07/12/2018 Blood Pressure 1: 126/68 Code: 8480-6 BMI: 28.4 Code: 54712-7 Heart Rate 1: 71 bpm Height: 5' SpO2: 97% Weight: 148 lbs 12/14/2017 Blood Pressure 1: 138/80 Code: 8480-6 BMI: 28.8 Code: 17120-6 Heart Rate 1: 73 bpm Height: 5' SpO2: 98% Weight: 150 lbs 12/06/2016 Blood Pressure 1: 146/82 Code: 8480-6 BMI: 26.8 Code: 30881-6 Heart Rate 1: 58 bpm Height: 5' [...] 1: 118/74 Code: 8480-6 BMI: 25.7 Code: 45949-2 Heart Rate 1: 64 bpm Height: 5' SpO2: 98% Weight: 134 lbs 10/02/2014 Blood Pressure 1: 136/88 Code: 8480-6 BMI: 25.9 Code: 96176-9 Heart Rate 1: 68 bpm Height: 5' SpO2: 98% Weight: 135 lbs 01/22/2014 Blood Pressure 1: 122/64 Code: 8480-6 BMI: 25.7 Code: 38072-1 Heart Rate 1: 72 bpm Height: 5' Weight: 134 lbs 02/07/2013 Blood Pressure 1: 140/80 Code: 8480-6 BMI: 23.6 Code: 06186-0 Height: 5' Weight: 123 lbs 02/16/2012 Blood Pressure 1: 102/68 Code: 8480-6 Heart Rate 1: 68 bpm Respiratory Rate: 18 bpm Weight: 131 lbs 01/24/2012 Blood Pressure 1: 120/72 Code: 8480-6 Heart Rate 1: 72 bpm Respiratory Rate: 16 bpm Weight: 133 lbs 10/31/2011 Blood Pressure 1: 136/84 Code: 8480-6 BMI: 23.2 Code: 69064-2 Heart Rate 1: 74 bpm Height: 5'2" Respiratory Rate: 16 bpm Weight: 127 lbs 10/13/2011 Blood Pressure 1: 138/84 Code: 8480-6 BMI: 23.2 Code: 24958-3 Heart Rate 1: 80 bpm Height: 5'2" [...] activity 12/06/2016 cardioversion cough [facility] 11/08/2016 None cough Quality acute 11/08/2016 [...] 11/08/2016 None Hospital Follow Up [facility] 11/08/2016 None Hospital Follow Up Quality acute illness 11/08/2016 None Hospital Follow Up Pertinent Findings Other: cough 11/08/2016 None Hospital Follow Up _ inf ection 11/01/2016 None Hospital Follow Up [facility] 11/01/2016 None Hospital Follow Up Quality acute illness 11/01/2016 None Hospital Follow Up Pertinent Findings Other: cough 11/01/2016 None cough [facility] 11/01/2016 None cough Quality acute 11/01/2016 None [...] Quality blee ding 02/07/2013 None hemorrhoids 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 P ATIENT, LEVEL III Diagnosis: Low back pain[ICD10: M54.5] Jennifer Walker MD, [facility] CPT- 4: 19709 07/12/2018 ([id number]) 50465 EST. P ATIENT, LEVEL IV Diagnosis: Paroxysmal atrial fibrillation[ICD10: I48.0] Diagnosis: Abnormal weight gain[ICD10: R63.5] Diagnosis: Irritable bowel syndrome with diarrhea[ICD10: K58.0] Jennifer Walker MD, [facility] CPT-4: 78684 12/14/2017 ([id number]) 50307 EST. P ATIENT, LEVEL III Diagnosis: Paroxysmal atrial fibrillation[ICD10: I48.0] Jennifer Walker MD, [facility] CPT-4: 06417 12/06/2016 ([id number]) 73133 EST. P ATIENT, LEVEL IV Diagnosis: Paroxysmal atrial fibrillation[ICD10: I48.0] Diagnosis: Pneumonia, unspecified organism[ICD10: J18.9] Jennifer Walker MD, [facility] CPT-4: 68640 11/08/2016 ([id number]) 39628 EST. P ATIENT, LEVEL III Diagnosis: Cough[ICD10: R05] Diagnosis: Pneumonia, unspecified organism[ICD10: J18.9] Jennifer Walker MD, [facility] CPT-4: 58447 11/01/2016 ([id number]) 25374 EST. P ATIENT, LEVEL III Diagnosis: Generalized anxiety disorder[ICD10: F41.1] Jennifer Walker MD, [facility] CPT-4: 80906 11/05/2015 ([id number]) 14352 EST. P ATIENT, LEVEL III Diagnosis: Rectal bleeding[ICD9: 569.3] Jennifer Walker MD, [facility] CPT- 4: 85831 10/02/2014 ([id number]) 84680 EST. P ATIENT, LEVEL III Diagnosis: Anxiety, generalized[ICD9: 300.02] Diagnosis: Depression[ICD9: 311] Kim Walker MD, [facility] CPT-4: 17424 01/22/2014 ([id number]) 15976 EST. P ATIENT, LEVEL III Diagnosis: Bloody feces[ICD9: 578.1] [facility] CPT-4: 99920 02/07/2013 ([id number]) 38921 EST. P ATIENT, LEVEL III Diagnosis: OSTEOARTH NOS-UNSPEC[ICD9: 715.90] Diagnosis: MUSCLE/LIGAMENT DIS NEC[ICD9: 728.89] [facility] CPT-4: 31572 02/16/2012 ([id number]) 52961 EST. P ATIENT, LEVEL III Diagnosis: Iliotibial band syndrome[ICD9: 728.89] Diagnosis: OSTEOARTH NOS-UNSPEC[ICD9: 715.90] Diagnosis: PAIN IN LIMB[ICD9: 729.5] [facility] CPT-4: 32692 01/24/2012 ([id number]) 14955 EST. P ATIENT, LEVEL IV Diagnosis: OSTEOARTH NOS-UNSPEC[ICD9: 715.90] Diagnosis: ROUTINE GYNE EXAM[ICD9: V72.31] [facility] CPT-4: 56425 10/31/2011 OFFICE VISIT, NEW - LEVEL 4 Diagnosis: Osteoarthritis[ICD9: 715.90] Diagnosis: INSOMNIA NOS[ICD9: 780.52] Diagnosis: PAIN IN LIMB[ICD9: 729.5] [facility] CPT-4: 55993 10/13/2011 Plan of Care Planned Activity Notes C odes Status Date Visit Plan: Low back pain- patient' s pain is actually improved -recommend MRI -refer to Dr Crouch if needed- okay to use tylenol for pain -also discussed PT if indicated-patient verbalized understanding of plan. 07/12/2018 Appointment: Jennifer Vera WPtel: [address] [place], [place] [phone] (30 min) [facility] 07/12/2018 Patient Education: Patient Medication Summary Completed 07/12/2018 Patient Education: Back Pain Completed 07/12/2018 Care Plan: MRI LUMBAR SPINE W/O DYE LOINC : 76041-6 Pending 07/12/2018 Patient Education: Patient Medication Summary [...] Vera WPtel: [phone] (15 min) Moderate 12/14/2017 Patient Education: [...] Vera WPtel: [phone] (15 min) Moderate 12/06/2016 Patient Education: Patient Medication Summary Completed 12/06/2016 Visit Plan: Afib-ordered EKG to con firm-increase cartia for heart rate control and start eliquis 5mg twice daily-follow up with Dr Solorzano Pneumonia-finished abx-no further treatment indicated 11/08/2016 Appointment: Jennifer Vera WPtel: [phone] (30 min) Complex 11/08/2016 Patient Education: Patient Medication Summary Completed 11/08/2016 Visit Plan: Pneumonia-on abx per ur gent-continue current treatment and follow up in 1 week to ensure resolution of symptoms. Call sooner for worsening or new symptoms. Patient verbalized understanding of plan. 11/01/2016 Appointment: Jennifer Vera WPtel: [address] [place], [place] [phone] (15 min) Moderate 11/01/2016 Patient Education: Patient [...] Vera WPtel: [phone] (15 min) Moderate 11/05/2015 Patient [...] panic attacks 01/22/2014 Appointment: Kim Walker WPtel: [address] [place] [address] Sick 01/22/2014 Patient Education: Patient Medication Summary Completed 01/22/2014 Care Plan: COMPLETE CBC AUTOMATED LOINC : 17233-8 Ordered 01/22/2014 Visit Plan: Blood in stool [...] work up. 02/07/2013 Appointment: Kim Walker WPtel: [address] [place], [place] [phone] Follow up 02/07/2013 Patient Education: Patient Medication Summary Completed 02/07/2013 Visit Plan: Arthritis- occasionally uncontrolled symptoms- recommend pt to take antiinflammatory as directed for pain control. Use tylenol for break through pain symptoms.Start mobic daily Leg length discrepency - recommended pt to place: dr gilliland inserts- 2 in the left shoe 02/16/2012 Appointment: Kim Walker WPtel: [facility] Follow up 02/16/2012 Patient Education: Patient [...] Kim Walker WPtel: [facility] Other 01/24/2012 Patient Education: Patient Medication Summary [...] times daily. 10/31/2011 [facility]ment[facility] [phone] [facility] [facility] 10/31/2011 Patient Education: Patient Medication [...] time insomnia. 10/13/2011 Appointment: [facility] [phone] [facility] [place] New [facility] 10/13/2011 Patient Education: [...]
--- OUTSIDE RECORDS SUMMARY | 2019-12-04 07:09 | XMS REPORT | CCD ---
Author Author Linda Walker Organization Kim Walker MD, [facility] Address [address] [place] [address] Phone Care Team Providers Care Hem Marker Name Role Phone PP Unavailable CCM Unavailable Summary Purpose Interface Exchange Insurance Providers Payer name Policy type / Coverage type Covered constitution party ID Effective Begin Date Effective End Date RACHEL GBA [id number] 2017 Unknown [employer] [id number] Unknown Family history Mother Diagnosis Age At Onset Breast cancer Unknown Brother Diagnosis Age At Onset Arthritis Unknown Grandson Diagnosis Age At Onset Diabetes Unknown Social History Social History Element Codes Description Effective Dates Tobacco history SNOMED CT: 2064162 Former smoker quit 03/201301/22/2014 Employment Unknown Retir [...] XT 180 mg cap clifford,extended release RxNorm: 122626 TAKE 1 CAPSULE BY ALEXANDER TH AT BEDTIME 07/30/2018 No Stop Date Active Prozac 40 mg capsule RxNorm: 286956 TAKE ONE CAPSULE BY MOUTH ONCE DAILY 06/08/2018 No Stop Date Active Xanax 0.25 mg tablet RxNorm: 486852 TAKE 1/2 TO 1 (ONE-HALF TO ONE) TABLET B Y MOUTH 4 TIMES DAILY NEEDED 05/18/2018 08/26/2018 Inactive Synthroid 75 mcg tablet RxNorm: 493043 1 Tablet(s) PO daily 03/29/2018 09/24/2018 Active will call for refill when ready Xanax 0.25 mg tablet RxNorm: 657703 1/2 - 1 Tablet(s) PO QID as needed anxie ty attack 01/24/2018 05/18/2018 Inactive Synthroid 25 mcg tablet RxNorm: 334432 1 Tablet(s) PO daily 12/15/2017 03/28/2018 Inactive take on an empty stomach by itself Flagyl 500 mg tablet RxNorm: 048630 1 Tablet(s) PO TID 12/15/2017 12/14/2017 Inactive Flagyl 500 mg tablet RxNorm: 117890 1 Tablet(s) PO TID 12/15/2017 12/24/2017 Inactive Synthroid 25 mcg tablet RxNorm: 991385 1 Tablet(s) PO daily 12/15/2017 12/14/2017 Inactive Fish Oil 360 mg-1,20 0 mg capsule,delayed release RxNorm: 1 Capsule(s) PO BID 12/14/2017 No Stop Date Active Xifaxan 550 mg tablet RxNorm: 056076 1 Tablet(s) PO TID 12/14/2017 12/27/2017 Inactive Xanax 0.25 mg tablet RxNorm: 159911 1/2 - 1 Tablet(s) PO QID as needed anxie ty attack 12/01/2017 07/11/2018 Inactive Xanax 0.25 mg tablet RxNorm: 478057 1/2 - 1 Tablet(s) PO QID as needed anxie ty attack 08/22/2017 08/28/2017 Inactive Cartia XT 180 mg cap clifford,extended release RxNorm: 987035 Capsule(s) TAKE ONE C APSULE BY MOUTH ONCE DAILY AT BEDTIME 08/04/2017 07/29/2018 Inactive Prozac 40 mg capsule RxNorm: 492906 Capsule(s) TAKE ONE CAPSULE BY MOUTH ONC E DAILY 06/08/2017 06/07/2018 Inactive Prozac 40 mg capsule RxNorm: 729513 TAKE ONE CAPSULE BY MOUTH ONCE DAILY 05/30/2017 06/07/2017 In active Cartia XT 180 mg cap clifford,extended release RxNorm: 185348 TAKE ONE CAPSULE BY M OUTH ONCE DAILY AT BEDTIME 05/08/2017 08/03/2017 Inactive Prozac 40 mg capsule RxNorm: 318410 TAKE ONE CAPSULE BY MOUTH ONCE DAILY 02/03/2017 05/29/2017 In active Eliquis 5 mg tablet RxNorm: 4108696 1 Tablet(s) PO BID 11/09/2016 12/05/2016 Inactive Eliquis 5 mg tablet RxNorm: 7930195 1 Tablet(s) PO BID 11/09/2016 11/08/2016 Inactive Cartia XT 180 mg cap clifford,extended release RxNorm: 669522 1 Capsule(s) PO QHS 11/08/2016 05/06/2017 In active Prozac 40 mg capsule RxNorm: 847385 TAKE ONE CAPSULE BY MOUTH ONCE DAILY 11/07/2016 02/02/2017 In active Phenergan with Codei ne Syrup RxNorm: 2.5 Milliliter(s) PO QHS as needed 10/28/2016 07/11/2018 In active levofloxacin 500 mg tablet RxNorm: 260825 1 Tablet(s) PO daily 10/28/2016 11/06/2016 Inactive Prozac 40 mg capsule RxNorm: 475572 TAKE ONE CAPSULE BY MOUTH ONCE DAILY 08/01/2016 10/29/2016 In active Prozac 40 mg capsule RxNorm: 565562 1 Capsule(s) PO daily 11/05/2015 05/02/2016 Inactive [SAVINGS FOR UNINSURED PATIENTS -- BIN:0 67407, PCN: ASPROD1, Group: [id number], ID# [id number], Process claim through Flex[employer], for questions: . THIS IS NOT INSURANCE.] Xanax 0.25 mg tablet RxNorm: 158095 1/2 - 1 Tablet(s) PO QID as needed anxie ty attack 11/02/2015 01/29/2016 Inactive Prozac 40 mg capsule RxNorm: 419427 Capsule(s) TAKE ONE CAPSULE BY MOUTH ONC E DAILY 08/12/2015 08/11/2015 Inactive NEEDS APPT Prozac 40 mg capsule RxNorm: 424437 TAKE ONE CAPSULE BY MOUTH ONCE DAILY 08/12/2015 07/31/2016 In active hydrocortisone aceta te 25 mg rectal suppository RxNorm: 4195982 1 Suppository RTL QH S 10/02/2014 07/11/2018 Inactive daily HS x 1 week, then twice weekly the n as needed Prozac 40 mg capsule RxNorm: 561289 TAKE ONE CAPSULE BY MOUTH ONCE DAILY 07/31/2014 01/26/2015 In active Prozac 40 mg capsule RxNorm: 634573 1 Capsule(s) PO daily 07/30/2014 02/24/2015 Inactive [SAVINGS FOR NON-COVERED DRUGS -- BIN:00 3585, PCN: ASPROD1, Group: [id number], ID# [id number], Questions: . THIS IS NOT INSURANCE.] Xanax 0.25 mg tablet RxNorm: 262605 1/2 - 1 Tablet(s) PO QID as needed anxie ty attack 01/22/2014 03/22/2014 Inactive Prozac 40 mg capsule RxNorm: 097545 1 Capsule(s) PO daily 01/22/2014 07/20/2014 Inactive [SAVINGS FOR UNINSURED PATIENTS -- BIN:0 86163, PCN: ASPROD1, Group: [id number], ID# [id number], Process claim through [employer], for questions: . THIS IS NOT INSURANCE.] Prozac 20 mg capsule RxNorm: 246726 1 Capsule(s) PO daily 08/08/2013 01/21/2014 Inactive Prozac 20 mg capsule RxNorm: 620730 1 Capsule(s) PO daily 07/19/2013 08/07/2013 Inactive Prozac 20 mg capsule RxNorm: 078169 1 Capsule(s) PO daily 02/12/2013 07/18/2013 Inactive Influenza Virus Vacc ine 0.5 mL RxNorm: IM 02/16/2012 02/16/2012 Inactive meloxicam 7.5 mg tablet RxNorm: 559978 1 Tablet(s) PO BID ONE PILL IN MORNING, IF PAIN IS UNCONTROLLED, MAY TAKE ONE EXTRA PILL IN THe PM do not take with ibuprofen or aleve 01/24/2012 02/15/2012 Inactive Aspirin Low Dose 81 mg tablet,delayed release RxNorm: 096786 1 Tablet(s) PO daily No Start Date Active Tylenol 500 mg RxNorm: 1 Tablet(s) PO BID No Start Date Active Repatha SureClick 14 0 mg/mL subcutaneous pen injector RxNorm: 7496997 1 Milliliter(s) SQ Q2 weeks No Start Date Active amiodarone 200 mg ta blet RxNorm: 949153 1/2 Tablet(s) PO daily No Start Date Active melatonin 10 mg tablet RxNorm: 0839346 1 Tablet(s) PO QHS No Start Date Active pantoprazole 40 mg t ablet,delayed release RxNorm: 701284 1 Tablet(s) PO daily No Start Date Active isosorbide mononitra te ER 30 mg tablet,extended release 24 hr RxNorm: 370234 1 Tablet(s) PO daily No Start Date Active melatonin 3 mg Tab RxNorm: 519866 2 Tablet(s) PO QHS No Start Date 12/13/2017 Inactive Xarelto 20 mg tablet RxNorm: 0301030 1 Tablet(s) PO QPM No Start Date 12/13/2017 Inactive Tylenol 8 Hour 650 m g tablet,extended release RxNorm: 1863817 1 Tablet(s) PO BID No Start Date 07/12/2018 Inactive Calcium 600 + D(3) 6 00 mg (1,500 mg)-400 unit Tab RxNorm: 354832 1 Tablet(s) PO QPM No Start Date 12/13/2017 Inactive prasugrel 10 mg tablet RxNorm: 313004 1 Tablet(s) PO daily No Start Date 07/11/2018 Inactive Fish Oil 360 mg-1,20 0 mg capsule,delayed release RxNorm: 1 Capsule(s) PO daily No Start Date 12/13/2017 Inactive PreserVision AREDS 2 oral RxNorm: 1087641 oral No Start Date 07/11/2018 Inactive Prozac 20 mg capsule RxNorm: 462415 1 Capsule(s) PO daily No Start Date 02/11/2013 Inactive Breo Ellipta inhalation RxNorm: 1773522 inhalation No Start Date 12/13/2017 Inactive fenofibrate nanocrys tallized 145 mg tablet RxNorm: 317846 Tablet(s) PO daily No Start Date 10/31/2016 Inactive Centrum Silver Ultra Women's Tab RxNorm: 1 Tablet(s) PO QHS No Start Date 10/31/2016 Inactive Cartia XT 120 mg cap clifford,extended release RxNorm: 797252 1 Capsule(s) PO QHS No Start Date [...] (3rd IS) 4.90 uIU/mL 06/25/2018 Free T4 Anu622 FREE T4 1.15 ng/dL 06/25/2018 Free T4 Mvt250 FREE T4 0.52 ng/dL 03/22/2018 Tsh Ord6 [...] 33.4 pg 12/15/2017 Cbc With Differential Ord2 [place]% 17.3 % 12/15/2017 Cbc With Differential Ord2 [...] 0.78 K/ul 12/15/2017 Cbc With Differential Ord2 [place] ABS# 0.4 K/ul 12/15/2017 Cbc With Differential Ord2 [place] ABS# 0.1 K/ul 12/15/2017 Cbc With Differential Ord2 Baso ABS# 0.0 K/ul 12/15/2017 Free T4 Pyp013 FREE T4 0.34 ng/dL 12/15/2017 Test(s) Not Perfromed [id number] Test(s) Not Performed Test(s) Not Performed. See Below: 12/14/2017 Test(s) Not Perfromed [id number] TEST NAME CBC 12/14/2017 Test(s) Not Perfromed [id number] Rejection Reason No Suitable Specimen Receive d 12/14/2017 Test(s) Not Perfromed [id number] COMMENT Grace notified for redraw 12/14/2017 Test(s) Not Perfromed [id number] [facility] Wale Whitman 12/14/2017 Tsh Ord6 TSH (3rd IS) 48.79 uIU/mL 12/14/2017 Comp Metabolic Xpr938 NA 137 mEq/L 12/14/2017 Comp Metabolic Syf405 K 4.3 mEq/L 12/14/2017 Comp Metabolic Qjs046 CL 101 mEq/L 12/14/2017 Comp Metabolic Uto597 CO2 29.0 mEq/L 12/14/2017 Comp Metabolic Fgw736 AN ION GAP 11 12/14/2017 Comp Metabolic Bvm238 GL UCOSE 81 mg/dL 12/14/2017 Comp Metabolic Kdx370 Cr eat 0.7 mg/dL 12/14/2017 Comp Metabolic Pxe992 eG FR 86 ml/min/1.73m2 12/14 Comp Metabolic Zkx166 BUN 14 mg/dL 12/14/2017 Comp Metabolic Mib183 B/ C Ratio 19.7 Ratio 12/14/2017 Comp Metabolic Lol240 CA LCIUM 9.2 mg/dL 12/14/2017 Comp Metabolic Vfx286 AL K PHOS 112 U/L 12/14/2017 Comp Metabolic Fir761 T(SGOT) 25 U/L 12/14/2017 Comp Metabolic Ngr370 AL T(SGPT) 20 U/L 12/14/2017 Comp Metabolic Mtd814 BI LI T 0.8 mg/dL 12/14/2017 Comp Metabolic Oca944 AL BUMIN 4.1 g/dL 12/14/2017 Comp Metabolic Zci942 TP RO 6.9 g/dL 12/14/2017 Comp Metabolic Ico092 GL OB 2.9 g/dL 12/14/2017 Comp Metabolic Jcs328 A/ G Ratio 1.4 Ratio 12/14/2017 Comp Metabolic Qbm763 Os mo 273 mOsmo 12/14/2017 LIPID GRP HDL TE ST 70 MG/DL 01/23/2014 LIPID GRP TRIG 134 MG/DL 01/23/2014 LIPID GRP [id number] TEST L DL 117 MG/DL 01/23/2014 LIPID GRP CHOL 214 MG/DL 01/23/2014 LIPID GRP RCHOL/ HDL 3.06 RATIO 01/23/2014 LIPID GRP NON-HD L CH 144 MG/DL 01/23/2014 TSH 9066333 TSH 1.784 uIU/ML 01/23/2014 CBC 1970362 WBC 4.7 10e9/L 01/23/2014 CBC 9052562 RBC 4.10 10e12/L 01/23/2014 CBC 0296290 HGB 13.3 g/dL 01/23/2014 CBC 7365958 HCT DET 39.2 % 01/23/2014 CBC 7827483 MCV 95.6 fL 01/23/2014 CBC 4849736 MCH 32.4 pg 01/23/2014 CBC 9277969 MCHC 33.9 g/dL 01/23/2014 CBC 6160091 PLT 232 10e9/L 01/23/2014 CBC 0999320 MPV 10.9 fL 01/23/2014 CBC 4797336 DORON % 57.4 % 01/23/2014 CBC 3303391 LY % 28.0 % 01/23/2014 CBC 7546617 MON % 12.9 % 01/23/2014 CBC 4437684 EOS % 1.3 % 01/23/2014 CBC 5138896 BASO % 0.4 % 01/23/2014 CBC 8621958 RDW 12.1 % 01/23/2014 CBC 8170055 ABS DORON 2.70 10e9/L 01/23/2014 CBC 2524823 ABS LYMPH 1.32 10e9/L 01/23/2014 CBC 8613376 ABS MONO 0.61 10e9/L 01/23/2014 CBC 7959689 ABS EOS 0.06 10e9/L 01/23/2014 CBC 8765794 ABS BASO 0.02 10e9/L 01/23/2014 CBC 6040426 RDW-SD 41.2 fL 01/23/2014 CHEM 14 5450188 AST 18 U/L 01/23/2014 CHEM 14 4318766 ALT 13 IU/L 01/23/2014 CHEM 14 2016739 BUN 16 MG/DL 01/23/2014 CHEM 14 3935295 ALBUMIN 4.2 GM/DL 01/23/2014 CHEM 14 9121562 CHLORIDE 105 MMOL/L 01/23/2014 CHEM 14 3515364 BILI TOT 0.7 MG/DL 01/23/2014 CHEM 14 4324849 ALK PHOS 61 U/L 01/23/2014 CHEM 14 8427704 SODIUM 138 MMOL/L 01/23/2014 CHEM 14 6219218 CREATINI NE 0.65 MG/DL 01/23/2014 CHEM 14 7998001 CALCIUM 9.5 MG/DL 01/23/2014 CHEM 14 9488993 POTASSIUM 4.4 MMOL/L 01/23/2014 CHEM 14 0226176 PROT TOT 6.8 GM/DL 01/23/2014 CHEM 14 6608696 GLUCOSE 93 MG/DL 01/23/2014 CHEM 14 2597321 BICARB 28 MMOL/L 01/23/2014 CHEM 14 6645834 ANION GAP 5 MEQ/L 01/23/2014 GFR CALC 9734271 GFR AA >60 ML/MIN 01/23/2014 GFR CALC 1212263 GFR NON -AA >60 ML/MIN 01/23/2014 URIC ACID 1177354 URIC A KYLE 5.7 MG/DL 10/13/2011 CHEM 14 0037131 AST 19 U/L 10/13/2011 CHEM 14 3264984 ALT 16 U/L 10/13/2011 CHEM 14 7510082 BUN 21 MG/DL 10/13/2011 CHEM 14 7316080 ALBUMIN 4.2 GM/DL 10/13/2011 CHEM 14 3335406 CHLORIDE 103 MMOL/L 10/13/2011 CHEM 14 9071093 BILI TOT 0.6 MG/DL 10/13/2011 CHEM 14 8475874 ALK PHOS 71 U/L 10/13/2011 CHEM 14 8355597 SODIUM 141 MMOL/L 10/13/2011 CHEM 14 7980751 CREATINI NE 0.65 MG/DL 10/13/2011 CHEM 14 3756938 CALCIUM 9.3 MG/DL 10/13/2011 CHEM 14 4039775 POTASSIUM 4.2 MMOL/L 10/13/2011 CHEM 14 7952344 PROT TOT 6.8 GM/DL 10/13/2011 CHEM 14 7868689 GLUCOSE 69 MG/DL 10/13/2011 CHEM 14 0255751 BICARB 27 MMOL/L 10/13/2011 CHEM 14 8284856 ANION GAP 11 MMOL/L 10/13/2011 CBC 0573783 WBC 6.1 10e9/L 10/13/2011 CBC 5646215 RBC 4.11 10e12/L 10/13/2011 CBC 8222671 HGB 13.3 g/dL 10/13/2011 CBC 9096314 HCT DET 39.6 % 10/13/2011 CBC 7510420 MCV 96.4 fL 10/13/2011 CBC 3545065 MCH 32.4 pg 10/13/2011 CBC 8117116 MCHC 33.6 g/dL 10/13/2011 CBC 3663212 PLT 238 10e9/L 10/13/2011 CBC 3558660 MPV 11.7 fL 10/13/2011 CBC 1896354 DORON % 50.2 % 10/13/2011 CBC 1259059 LY % 35.6 % 10/13/2011 CBC 1794509 MON % 12.7 % 10/13/2011 CBC 6058263 EOS % 1.2 % 10/13/2011 CBC 3925531 BASO % 0.3 % 10/13/2011 CBC 3341077 RDW 12.3 % 10/13/2011 CBC 7638193 ABS DORON 3.06 10e9/L 10/13/2011 CBC 0822926 ABS LYMPH 2.17 10e9/L 10/13/2011 CBC 4968790 ABS MONO 0.77 10e9/L 10/13/2011 CBC 3298381 ABS EOS 0.07 10e9/L 10/13/2011 CBC 9419508 ABS BASO 0.02 10e9/L 10/13/2011 CBC 7297587 RDW-SD 42.3 fL 10/13/2011 GFR CALC 8602215 GFR AA >60 ML/MIN 10/13/2011 GFR CALC 0742867 GFR NON -AA >60 ML/MIN 10/13/2011 ESR 0236336 ESR 14 MM/HR 10/13/2011 Review of Systems [...] clear 07/12/2018 None Full Exam - General 1995 Ears/Nose/Throat [...] 02/07/2013 None Full Exam - General 1995 Neurologic deep tendon reflexes Overall: deep tendon reflexes intact 02/07/2013 None Full Exam - General 1995 Neurologic gait Overall: no ataxia, no unsteadiness 02/07/2013 None Full Exam - General 1995 Neurologic [...] warm 10/31/2011 None Full Exam - General 1995 Musculoskeletal lower extremity ROM - foot: a [...] SY CPT-4: G8553 01/24/2012 ROUTINE VENIPUNCTURE CPT-4: 46387 10/13/2011 Vital Signs Date Vital 07/12/2018 Blood Pressure 1: 126/68 Code: 8480-6 BMI: 28.4 Code: 51857-9 Heart Rate 1: 71 bpm Height: 5' SpO2: 97% Weight: 148 lbs 12/14/2017 Blood Pressure 1: 138/80 Code: 8480-6 BMI: 28.8 Code: 67599-6 Heart Rate 1: 73 bpm Height: 5' SpO2: 98% Weight: 150 lbs 12/06/2016 Blood Pressure 1: 146/82 Code: 8480-6 BMI: 26.8 Code: 23586-5 Heart Rate 1: 58 bpm Height: 5' [...] 1: 118/74 Code: 8480-6 BMI: 25.7 Code: 31752-1 Heart Rate 1: 64 bpm Height: 5' SpO2: 98% Weight: 134 lbs 10/02/2014 Blood Pressure 1: 136/88 Code: 8480-6 BMI: 25.9 Code: 21228-8 Heart Rate 1: 68 bpm Height: 5' SpO2: 98% Weight: 135 lbs 01/22/2014 Blood Pressure 1: 122/64 Code: 8480-6 BMI: 25.7 Code: 57606-5 Heart Rate 1: 72 bpm Height: 5' Weight: 134 lbs 02/07/2013 Blood Pressure 1: 140/80 Code: 8480-6 BMI: 23.6 Code: 41521-2 Height: 5' Weight: 123 lbs 02/16/2012 Blood Pressure 1: 102/68 Code: 8480-6 Heart Rate 1: 68 bpm Respiratory Rate: 18 bpm Weight: 131 lbs 01/24/2012 Blood Pressure 1: 120/72 Code: 8480-6 Heart Rate 1: 72 bpm Respiratory Rate: 16 bpm Weight: 133 lbs 10/31/2011 Blood Pressure 1: 136/84 Code: 8480-6 BMI: 23.2 Code: 21349-3 Heart Rate 1: 74 bpm Height: 5'2" Respiratory Rate: 16 bpm Weight: 127 lbs 10/13/2011 Blood Pressure 1: 138/84 Code: 8480-6 BMI: 23.2 Code: 35928-8 Heart Rate 1: 80 bpm Height: 5'2" Respiratory Rate: 16 bpm Weight: 127 lbs Functional Status No Functional Status data History of Present Illness Symptom Name Status Resu lt Effective Date Notes Onset and Resolution o ngoing 07/12/2018 None Location in the [facility] e of in the lower back [...] 12/06/2016 cardioversion cough Location in the [facility] 11/08/2016 None cough Quality acute 11/08/2016 [...] 11/08/2016 None Hospital Follow Up _ [facility] 11/08/2016 None Hospital Follow Up Quality acute illness 11/08/2016 None Hospital Follow Up Pertinent Findings Other: cough 11/08/2016 None Hospital Follow Up _ inf ection 11/01/2016 None Hospital Follow Up _ [facility] 11/01/2016 None Hospital Follow Up Quality acute illness 11/01/2016 None Hospital Follow Up Pertinent Findings Other: cough 11/01/2016 None cough Location in the [facility] 11/01/2016 None cough Quality acute 11/01/2016 [...] Quality blee ding 02/07/2013 None hemorrhoids 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 P ATIENT, LEVEL III Diagnosis: Low back pain[ICD10: M54.5] [facility] CPT- 4: 20333 07/12/2018 ([id number]) 06035 EST. P ATJUDY, LEVEL IV Diagnosis: Paroxysmal atrial fibrillation[ICD10: I48.0] Diagnosis: Abnormal weight gain[ICD10: R63.5] Diagnosis: Irritable bowel syndrome with diarrhea[ICD10: K58.0] [facility] CPT-4: 41081 12/14/2017 ([id number]) 84842 EST. P ATIENT, LEVEL III Diagnosis: Paroxysmal atrial fibrillation[ICD10: I48.0] Jennifer Walker MD, [facility] CPT-4: 22789 12/06/2016 ([id number]) 62071 EST. P ATIENT, LEVEL IV Diagnosis: Paroxysmal atrial fibrillation[ICD10: I48.0] Diagnosis: Pneumonia, unspecified organism[ICD10: J18.9] Jennifer Walker MD, [facility] CPT-4: 39963 11/08/2016 ([id number]) 94764 EST. P ATIENT, LEVEL III Diagnosis: Cough[ICD10: R05] Diagnosis: Pneumonia, unspecified organism[ICD10: J18.9] Jennifer Walker MD, [facility] CPT-4: 15880 11/01/2016 ([id number]) 69382 EST. P ATIENT, LEVEL III Diagnosis: Generalized anxiety disorder[ICD10: F41.1] Jennifer Walker MD, [facility] CPT-4: 68613 11/05/2015 ([id number]) 83468 EST. P ATIENT, LEVEL III Diagnosis: Rectal bleeding[ICD9: 569.3] Jennifer Walker MD, [facility] CPT- 4: 92386 10/02/2014 ([id number]) 99650 EST. P ATIENT, LEVEL III Diagnosis: Anxiety, generalized[ICD9: 300.02] Diagnosis: Depression[ICD9: 311] Kim Walker MD, [facility] CPT-4: 04977 01/22/2014 ([id number]) 82482 EST. P ATIENT, LEVEL III Diagnosis: Bloody feces[ICD9: 578.1] Kim Walker MD, [facility] CPT-4: 29644 02/07/2013 ([id number]) 58622 EST. P ATIENT, LEVEL III Diagnosis: OSTEOARTH NOS-UNSPEC[ICD9: 715.90] Diagnosis: MUSCLE/LIGAMENT DIS NEC[ICD9: 728.89] Kim Walker MD, [facility] CPT-4: 05705 02/16/2012 ([id number]) 30893 EST. P ATIENT, LEVEL III Diagnosis: Iliotibial band syndrome[ICD9: 728.89] Diagnosis: OSTEOARTH NOS-UNSPEC[ICD9: 715.90] Diagnosis: PAIN IN LIMB[ICD9: 729.5] [facility] CPT-4: 12523 01/24/2012 ([id number]) 40189 EST. P ATIENT, LEVEL IV Diagnosis: OSTEOARTH NOS-UNSPEC[ICD9: 715.90] Diagnosis: ROUTINE GYNE EXAM[ICD9: V72.31] [facility] CPT-4: 04179 10/31/2011 OFFICE VISIT, NEW - LEVEL 4 Diagnosis: Osteoarthritis[ICD9: 715.90] Diagnosis: INSOMNIA NOS[ICD9: 780.52] Diagnosis: PAIN IN LIMB[ICD9: 729.5] [facility] CPT-4: 36468 10/13/2011 Plan of Care Planned Activity Notes C odes Status Date Visit Plan: Low back pain- patient' s pain is actually improved -recommend MRI -refer to Dr Crouch if needed- okay to use tylenol for pain -also discussed PT if indicated-patient verbalized understanding of plan. 07/12/2018 Appointment: Jennifer Vera WPtel: [address] [place], [place] [phone] (30 min) Complex 07/12/2018 Patient Education: Patient Medication Summary Completed 07/12/2018 Patient Education: Back Pain Completed 07/12/2018 Care Plan: MRI LUMBAR SPINE W/O DYE LOINC : 51039-4 Pending 07/12/2018 Patient Education: Patient Medication Summary [...] including TSH 12/14/2017 Appointment: Jennifer Vera WPtel: [phone] (15 min) Moderate 12/14/2017 Patient Education: Patient Medication Summary Completed 12/14/2017 Care Plan: Cbc With Differential Pending 12/14/2017 Visit Plan: Afib-converted to NSR b y Dr Solorzano-on xarelto- instructed patient to report if they start to feel as if their heart rate is becoming uncontrolled or other symptoms develop. Patient verbalized understan zayra. 12/06/2016 Appointment: Jennifer Vera WPtel: [phone] (15 min) Moderate 12/06/2016 Patient Education: Patient Medication Summary Completed 12/06/2016 Visit Plan: Afib-ordered EKG to con firm-increase cartia for heart rate control and start eliquis 5mg twice daily-follow up with Dr Solorzano Pneumonia-finished abx-no further treatment indicated 11/08/2016 Appointment: Jennifer Vera WPtel: [address] [place], [place] [phone] (30 min) Complex 11/08/2016 Patient Education: Patient Medication Summary Completed 11/08/2016 Visit Plan: Pneumonia-on abx per ur gent-continue current treatment and follow up in 1 week to ensure resolution of symptoms. Call sooner for worsening or new symptoms. Patient verbalized understanding of plan. 11/01/2016 Appointment: Jennifer Vera WPtel: [address] [place], [place] [phone] (15 min) Moderate 11/01/2016 Patient Education: Patient [...] current medications. 11/05/2015 Appointment: Jennifer Vera WPtel: [phone] (15 min) Moderate 11/05/2015 Patient Education: Patient [...] panic attacks 01/22/2014 Appointment: Kim Walker WPtel: [facility] Sick 01/22/2014 Patient Education: Patient Medication Summary Completed 01/22/2014 Care Plan: COMPLETE CBC AUTOMATED LOINC : 58298-7 Ordered 01/22/2014 Visit Plan: Blood in stool [...] work up. 02/07/2013 Appointment: Kim Walker WPtel: [address] [place], [place] [phone] Follow up 02/07/2013 Patient Education: Patient Medication Summary Completed 02/07/2013 Visit Plan: Arthritis- occasionally uncontrolled symptoms- recommend pt to take antiinflammatory as directed for pain control. Use tylenol for break through pain symptoms.Start mobic daily Leg length discrepency - recommended pt to place: dr gilliland inserts- 2 in the left shoe 02/16/2012 Appointment: Kim aWlker WPtel: [facility] Follow up 02/16/2012 Patient Education: [...] for re-eval. 01/24/2012 Appointment: Kim Walker WPtel: [phone] Other 01/24/2012 Patient Education: Patient Medication [...] daily. 10/31/2011 Appointment: Kim Walker WPtel: [phone] [facility] 10/31/2011 Patient Education: Patient [...] time insomnia. 10/13/2011 Appointment: [phone] [facility] [place] New Patient 10/13/2011 Patient Education: Patient [...]
--- OUTSIDE RECORDS SUMMARY | 2019-12-04 07:10 | XMS REPORT | CCD ---
Author Author Linda Walker Organization Kim Walker MD, [facility] Address [address] [place] [address] Phone Care Team Providers Care Senior Manager Mmcoe Name Role Phone PP Unavailable CCM Unavailable Summary Purpose Interface Exchange Insurance Providers Payer name Policy type / Coverage type Covered republican ID Effective Begin Date Effective End Date RACHEL GBA [id number] 2017 Unknown [employer] [id number] Unknown Family history Mother Diagnosis Age At Onset Breast cancer Unknown Brother Diagnosis Age At Onset Arthritis Unknown Grandson Diagnosis Age At Onset Diabetes Unknown Social History Social History Element Codes Description Effective Dates Tobacco history SNOMED CT: 7682984 Former smoker quit 03/201301/22/2014 Employment Unknown Retir [...] XT 180 mg cap clifford,extended release RxNorm: 893973 TAKE 1 CAPSULE BY ALEXANDER TH AT BEDTIME 07/30/2018 No Stop Date Active Prozac 40 mg capsule RxNorm: 778372 TAKE ONE CAPSULE BY MOUTH ONCE DAILY 06/08/2018 No Stop Date Active Xanax 0.25 mg tablet RxNorm: 948622 TAKE 1/2 TO 1 (ONE-HALF TO ONE) TABLET B Y MOUTH 4 TIMES DAILY NEEDED 05/18/2018 No Stop Date Active Synthroid 75 mcg tablet RxNorm: 094760 1 Tablet(s) PO daily 03/29/2018 09/24/2018 Active will call for refill when ready Xanax 0.25 mg tablet RxNorm: 760219 1/2 - 1 Tablet(s) PO QID as needed anxie ty attack 01/24/2018 05/18/2018 Inactive Synthroid 25 mcg tablet RxNorm: 280218 1 Tablet(s) PO daily 12/15/2017 03/28/2018 Inactive take on an empty stomach by itself Flagyl 500 mg tablet RxNorm: 142920 1 Tablet(s) PO TID 12/15/2017 12/14/2017 Inactive Flagyl 500 mg tablet RxNorm: 438628 1 Tablet(s) PO TID 12/15/2017 12/24/2017 Inactive Synthroid 25 mcg tablet RxNorm: 066096 1 Tablet(s) PO daily 12/15/2017 12/14/2017 Inactive Fish Oil 360 mg-1,20 0 mg capsule,delayed release RxNorm: 1 Capsule(s) PO BID 12/14/2017 No Stop Date Active Xifaxan 550 mg tablet RxNorm: 615452 1 Tablet(s) PO TID 12/14/2017 12/27/2017 Inactive Xanax 0.25 mg tablet RxNorm: 535926 1/2 - 1 Tablet(s) PO QID as needed anxie ty attack 12/01/2017 07/11/2018 Inactive Xanax 0.25 mg tablet RxNorm: 232353 1/2 - 1 Tablet(s) PO QID as needed anxie ty attack 08/22/2017 08/28/2017 Inactive Cartia XT 180 mg cap clifford,extended release RxNorm: 409084 Capsule(s) TAKE ONE C APSULE BY MOUTH ONCE DAILY AT BEDTIME 08/04/2017 07/29/2018 Inactive Prozac 40 mg capsule RxNorm: 427100 Capsule(s) TAKE ONE CAPSULE BY MOUTH ONC E DAILY 06/08/2017 06/07/2018 Inactive Prozac 40 mg capsule RxNorm: 597577 TAKE ONE CAPSULE BY MOUTH ONCE DAILY 05/30/2017 06/07/2017 In active Cartia XT 180 mg cap clifford,extended release RxNorm: 418794 TAKE ONE CAPSULE BY M OUTH ONCE DAILY AT BEDTIME 05/08/2017 08/03/2017 Inactive Prozac 40 mg capsule RxNorm: 149885 TAKE ONE CAPSULE BY MOUTH ONCE DAILY 02/03/2017 05/29/2017 In active Eliquis 5 mg tablet RxNorm: 1392783 1 Tablet(s) PO BID 11/09/2016 12/05/2016 Inactive Eliquis 5 mg tablet RxNorm: 0044183 1 Tablet(s) PO BID 11/09/2016 11/08/2016 Inactive Cartia XT 180 mg cap clifford,extended release RxNorm: 860539 1 Capsule(s) PO QHS 11/08/2016 05/06/2017 In active Prozac 40 mg capsule RxNorm: 433240 TAKE ONE CAPSULE BY MOUTH ONCE DAILY 11/07/2016 02/02/2017 In active Phenergan with Codei ne Syrup RxNorm: 2.5 Milliliter(s) PO QHS as needed 10/28/2016 07/11/2018 In active levofloxacin 500 mg tablet RxNorm: 325689 1 Tablet(s) PO daily 10/28/2016 11/06/2016 Inactive Prozac 40 mg capsule RxNorm: 980964 TAKE ONE CAPSULE BY MOUTH ONCE DAILY 08/01/2016 10/29/2016 In active Prozac 40 mg capsule RxNorm: 608964 1 Capsule(s) PO daily 11/05/2015 05/02/2016 Inactive [SAVINGS FOR UNINSURED PATIENTS -- BIN:0 81868, PCN: ASPROD1, Group: [id number], ID# [id number], Process claim through [employer], for questions: . THIS IS NOT INSURANCE.] Xanax 0.25 mg tablet RxNorm: 566334 1/2 - 1 Tablet(s) PO QID as needed anxie ty attack 11/02/2015 01/29/2016 Inactive Prozac 40 mg capsule RxNorm: 212530 Capsule(s) TAKE ONE CAPSULE BY MOUTH ONC E DAILY 08/12/2015 08/11/2015 Inactive NEEDS APPT Prozac 40 mg capsule RxNorm: 036691 TAKE ONE CAPSULE BY MOUTH ONCE DAILY 08/12/2015 07/31/2016 In active hydrocortisone aceta te 25 mg rectal suppository RxNorm: 9643307 1 Suppository RTL QH S 10/02/2014 07/11/2018 Inactive daily HS x 1 week, then twice weekly the n as needed Prozac 40 mg capsule RxNorm: 763741 TAKE ONE CAPSULE BY MOUTH ONCE DAILY 07/31/2014 01/26/2015 In active Prozac 40 mg capsule RxNorm: 705851 1 Capsule(s) PO daily 07/30/2014 02/24/2015 Inactive [SAVINGS FOR NON-COVERED DRUGS -- BIN:00 3585, PCN: ASPROD1, Group: XXXXX, ID# [id number], Questions: . THIS IS NOT INSURANCE.] Xanax 0.25 mg tablet RxNorm: 894556 1/2 - 1 Tablet(s) PO QID as needed anxie ty attack 01/22/2014 03/22/2014 Inactive Prozac 40 mg capsule RxNorm: 320368 1 Capsule(s) PO daily 01/22/2014 07/20/2014 Inactive [SAVINGS FOR UNINSURED PATIENTS -- BIN:0 95746, PCN: ASPROD1, Group: MYLENE, ID# [id number], Process claim through [employer], for questions: . THIS IS NOT INSURANCE.] Prozac 20 mg capsule RxNorm: 829490 1 Capsule(s) PO daily 08/08/2013 01/21/2014 Inactive Prozac 20 mg capsule RxNorm: 587269 1 Capsule(s) PO daily 07/19/2013 08/07/2013 Inactive Prozac 20 mg capsule RxNorm: 141342 1 Capsule(s) PO daily 02/12/2013 07/18/2013 Inactive Influenza Virus Vacc ine 0.5 mL RxNorm: IM 02/16/2012 02/16/2012 Inactive meloxicam 7.5 mg tablet RxNorm: 040585 1 Tablet(s) PO BID ONE PILL IN MORNING, IF PAIN IS UNCONTROLLED, MAY TAKE ONE EXTRA PILL IN THe PM do not take with ibuprofen or aleve 01/24/2012 02/15/2012 Inactive Aspirin Low Dose 81 mg tablet,delayed release RxNorm: 442568 1 Tablet(s) PO daily No Start Date Active Tylenol 500 mg RxNorm: 1 Tablet(s) PO BID No Start Date Active Repatha SureClick 14 0 mg/mL subcutaneous pen injector RxNorm: 9596803 1 Milliliter(s) SQ Q2 weeks No Start Date Active amiodarone 200 mg ta blet RxNorm: 518204 1/2 Tablet(s) PO daily No Start Date Active melatonin 10 mg tablet RxNorm: 2840475 1 Tablet(s) PO QHS No Start Date Active pantoprazole 40 mg t ablet,delayed release RxNorm: 536273 1 Tablet(s) PO daily No Start Date Active isosorbide mononitra te ER 30 mg tablet,extended release 24 hr RxNorm: 985354 1 Tablet(s) PO daily No Start Date Active melatonin 3 mg Tab RxNorm: 819894 2 Tablet(s) PO QHS No Start Date 12/13/2017 Inactive Xarelto 20 mg tablet RxNorm: 4837630 1 Tablet(s) PO QPM No Start Date 12/13/2017 Inactive Tylenol 8 Hour 650 m g tablet,extended release RxNorm: 7543100 1 Tablet(s) PO BID No Start Date 07/12/2018 Inactive Calcium 600 + D(3) 6 00 mg (1,500 mg)-400 unit Tab RxNorm: 860254 1 Tablet(s) PO QPM No Start Date 12/13/2017 Inactive prasugrel 10 mg tablet RxNorm: 468964 1 Tablet(s) PO daily No Start Date 07/11/2018 Inactive Fish Oil 360 mg-1,20 0 mg capsule,delayed release RxNorm: 1 Capsule(s) PO daily No Start Date 12/13/2017 Inactive PreserVision AREDS 2 oral RxNorm: 5715804 oral No Start Date 07/11/2018 Inactive Prozac 20 mg capsule RxNorm: 953507 1 Capsule(s) PO daily No Start Date 02/11/2013 Inactive Breo Ellipta inhalation RxNorm: 8095028 inhalation No Start Date 12/13/2017 Inactive fenofibrate nanocrys tallized 145 mg tablet RxNorm: 474081 Tablet(s) PO daily No Start Date 10/31/2016 Inactive Centrum Silver Ultra Women's Tab RxNorm: 1 Tablet(s) PO QHS No Start Date 10/31/2016 Inactive Cartia XT 120 mg cap clifford,extended release RxNorm: 572854 1 Capsule(s) PO QHS No Start Date [...] (3rd IS) 4.90 uIU/mL 06/25/2018 Free T4 Evj988 FREE T4 1.15 ng/dL 06/25/2018 Free T4 Xcp325 FREE T4 0.52 ng/dL 03/22/2018 Tsh Ord6 [...] 33.4 pg 12/15/2017 Cbc With Differential Ord2 [place]% 17.3 % 12/15/2017 Cbc With Differential Ord2 Eos% 3.1 % 12/15/2017 Cbc With Differential Ord2 MCHC 33.2 pg 12/15/2017 Cbc With Differential Ord2 PLT 235 K/ul 12/15/2017 Cbc With Differential Ord2 Baso% 0.8 % 12/15/2017 Cbc With Differential Ord2 RDW 13.6 % 12/15/2017 Cbc With Differential Ord2 Neut ABS# 1.23 K/ul 12/15/2017 Cbc With Differential Ord2 Lymph ABS# 0.78 K/ul 12/15/2017 Cbc With Differential Ord2 [place] ABS# 0.4 K/ul 12/15/2017 Cbc With Differential Ord2 Eos ABS# 0.1 K/ul 12/15/2017 Cbc With Differential Ord2 Baso ABS# 0.0 K/ul 12/15/2017 Free T4 Mow289 FREE T4 0.34 ng/dL 12/15/2017 Test(s) Not Perfromed [id number] Test(s) Not Performed Test(s) Not Performed. See Below: 12/14/2017 Test(s) Not Perfromed [id number] TEST NAME CBC 12/14/2017 Test(s) Not Perfromed [id number] Rejection Reason No Suitable Specimen Receive d 12/14/2017 Test(s) Not Perfromed [id number] COMMENT Grace notified for redraw 12/14/2017 Test(s) Not Perfromed [id number] Skiff Operator Wale Whitman 12/14/2017 Tsh Ord6 TSH (3rd IS) 48.79 uIU/mL 12/14/2017 Comp Metabolic Trp600 NA 137 mEq/L 12/14/2017 Comp Metabolic Elr766 K 4.3 mEq/L 12/14/2017 Comp Metabolic Utp148 CL 101 mEq/L 12/14/2017 Comp Metabolic Qmf457 CO2 29.0 mEq/L 12/14/2017 Comp Metabolic Efk108 AN ION GAP 11 12/14/2017 Comp Metabolic Qib073 GL UCOSE 81 mg/dL 12/14/2017 Comp Metabolic Xqj326 Cr eat 0.7 mg/dL 12/14/2017 Comp Metabolic Qox513 eG FR 86 ml/min/1.73m2 12/14 Comp Metabolic Fml189 BUN 14 mg/dL 12/14/2017 Comp Metabolic Sla591 B/ C Ratio 19.7 Ratio 12/14/2017 Comp Metabolic Syk841 CA LCIUM 9.2 mg/dL 12/14/2017 Comp Metabolic Xrg490 AL K PHOS 112 U/L 12/14/2017 Comp Metabolic Wte785 T(SGOT) 25 U/L 12/14/2017 Comp Metabolic Raz018 AL T(SGPT) 20 U/L 12/14/2017 Comp Metabolic Kpk625 BI LI T 0.8 mg/dL 12/14/2017 Comp Metabolic Dbd374 AL BUMIN 4.1 g/dL 12/14/2017 Comp Metabolic Aaw923 TP RO 6.9 g/dL 12/14/2017 Comp Metabolic Jkp827 GL OB 2.9 g/dL 12/14/2017 Comp Metabolic Uqi396 A/ G Ratio 1.4 Ratio 12/14/2017 Comp Metabolic Ygb757 Os mo 273 mOsmo 12/14/2017 CHEM 14 3967755 AST 18 U/L 01/23/2014 CHEM 14 20271201 ALT 13 IU/L 01/23/2014 CHEM 14 20271201 BUN 16 MG/DL 01/23/2014 CHEM 14 7321424 ALBUMIN 4.2 GM/DL 01/23/2014 CHEM 14 7579835 CHLORIDE 105 MMOL/L 01/23/2014 CHEM 14 1574682 BILI TOT 0.7 MG/DL 01/23/2014 CHEM 14 2867434 ALK PHOS 61 U/L 01/23/2014 CHEM 14 1504870 SODIUM 138 MMOL/L 01/23/2014 CHEM 14 5966760 CREATINI NE 0.65 MG/DL 01/23/2014 CHEM 14 0566316 CALCIUM 9.5 MG/DL 01/23/2014 CHEM 14 1552694 POTASSIUM 4.4 MMOL/L 01/23/2014 CHEM 14 1735770 PROT TOT 6.8 GM/DL 01/23/2014 CHEM 14 4366173 GLUCOSE 93 MG/DL 01/23/2014 CHEM 14 7629060 BICARB 28 MMOL/L 01/23/2014 CHEM 14 2627870 ANION GAP 5 MEQ/L 01/23/2014 CBC 0930922 WBC 4.7 10e9/L 01/23/2014 CBC 8455423 RBC 4.10 10e12/L 01/23/2014 CBC 9799056 HGB 13.3 g/dL 01/23/2014 CBC 2563771 HCT DET 39.2 % 01/23/2014 CBC 0273177 MCV 95.6 fL 01/23/2014 CBC 6429136 MCH 32.4 pg 01/23/2014 CBC 2665651 MCHC 33.9 g/dL 01/23/2014 CBC 8334173 PLT 232 10e9/L 01/23/2014 CBC 0315413 MPV 10.9 fL 01/23/2014 CBC 7660022 DORON % 57.4 % 01/23/2014 CBC 2899734 LY % 28.0 % 01/23/2014 CBC 5261430 MON % 12.9 % 01/23/2014 CBC 2467494 EOS % 1.3 % 01/23/2014 CBC 8055967 BASO % 0.4 % 01/23/2014 CBC 6677477 RDW 12.1 % 01/23/2014 CBC 8244459 ABS DORON 2.70 10e9/L 01/23/2014 CBC 5404685 ABS LYMPH 1.32 10e9/L 01/23/2014 CBC 1492489 ABS MONO 0.61 10e9/L 01/23/2014 CBC 3256627 ABS EOS 0.06 10e9/L 01/23/2014 CBC 4070173 ABS BASO 0.02 10e9/L 01/23/2014 CBC 6979645 RDW-SD 41.2 fL 01/23/2014 TSH 9212963 TSH 1.784 uIU/ML 01/23/2014 LIPID GRP HDL TE ST 70 MG/DL 01/23/2014 LIPID GRP 3922809 TRIG 134 MG/DL 01/23/2014 LIPID GRP TEST L DL 117 MG/DL 01/23/2014 LIPID GRP CHOL 214 MG/DL 01/23/2014 LIPID GRP RCHOL/ HDL 3.06 RATIO 01/23/2014 LIPID GRP 0170495 NON-HD L CH 144 MG/DL 01/23/2014 GFR CALC 5050903 GFR AA >60 ML/MIN 01/23/2014 GFR CALC 0079382 GFR NON -AA >60 ML/MIN 01/23/2014 ESR 9693032 ESR 14 MM/HR 10/13/2011 GFR CALC 2950389 GFR AA >60 ML/MIN 10/13/2011 GFR CALC 4883840 GFR NON -AA >60 ML/MIN 10/13/2011 CBC 7256779 WBC 6.1 10e9/L 10/13/2011 CBC 1299500 RBC 4.11 10e12/L 10/13/2011 CBC 1635529 HGB 13.3 g/dL 10/13/2011 CBC 2846965 HCT DET 39.6 % 10/13/2011 CBC 6576787 MCV 96.4 fL 10/13/2011 CBC 7106267 MCH 32.4 pg 10/13/2011 CBC 9930997 MCHC 33.6 g/dL 10/13/2011 CBC 3347245 PLT 238 10e9/L 10/13/2011 CBC 2455902 MPV 11.7 fL 10/13/2011 CBC 5933011 DORON % 50.2 % 10/13/2011 CBC 6142655 LY % 35.6 % 10/13/2011 CBC 9206819 MON % 12.7 % 10/13/2011 CBC 9114789 EOS % 1.2 % 10/13/2011 CBC 0809487 BASO % 0.3 % 10/13/2011 CBC 9847568 RDW 12.3 % 10/13/2011 CBC 2885779 ABS DORON 3.06 10e9/L 10/13/2011 CBC 9183286 ABS LYMPH 2.17 10e9/L 10/13/2011 CBC 7214902 ABS MONO 0.77 10e9/L 10/13/2011 CBC 7040865 ABS EOS 0.07 10e9/L 10/13/2011 CBC 7661747 ABS BASO 0.02 10e9/L 10/13/2011 CBC 4988589 RDW-SD 42.3 fL 10/13/2011 CHEM 14 4258734 AST 19 U/L 10/13/2011 CHEM 14 1888793 ALT 16 U/L 10/13/2011 CHEM 14 7490668 BUN 21 MG/DL 10/13/2011 CHEM 14 5806230 ALBUMIN 4.2 GM/DL 10/13/2011 CHEM 14 6811813 CHLORIDE 103 MMOL/L 10/13/2011 CHEM 14 4741676 BILI TOT 0.6 MG/DL 10/13/2011 CHEM 14 8318488 ALK PHOS 71 U/L 10/13/2011 CHEM 14 3961182 SODIUM 141 MMOL/L 10/13/2011 CHEM 14 2427191 CREATINI NE 0.65 MG/DL 10/13/2011 CHEM 14 1870063 CALCIUM 9.3 MG/DL 10/13/2011 CHEM 14 4110241 POTASSIUM 4.2 MMOL/L 10/13/2011 CHEM 14 0709622 PROT TOT 6.8 GM/DL 10/13/2011 CHEM 14 2455509 GLUCOSE 69 MG/DL 10/13/2011 CHEM 14 4877954 BICARB 27 MMOL/L 10/13/2011 CHEM 14 8112136 ANION GAP 11 MMOL/L 10/13/2011 URIC ACID 9070501 URIC A KYLE 5.7 MG/DL 10/13/2011 Review of Systems System Result Effective [...] rate 02/16/2012 None Full Exam - General 1995 Cardiovascular extremities Overall: no clubbing 02/16/2012 None Full Exam - General 1994 Cardiovascular auscultation of heart Overall: regular rate 02/16/2012 None Full Exam - General 1994 Cardiovascular auscultation of heart Overall: normal heart sounds 02/16/2012 None Full Exam - General 1995 Musculoskeletal lower extremity Palpation - knee: no [...] SY CPT-4: G8553 01/24/2012 ROUTINE VENIPUNCTURE CPT-4: 21202 10/13/2011 Vital Signs Date Vital 07/12/2018 Blood Pressure 1: 126/68 Code: 8480-6 BMI: 28.4 Code: 16680-4 Heart Rate 1: 71 bpm Height: 5' SpO2: 97% Weight: 148 lbs 12/14/2017 Blood Pressure 1: 138/80 Code: 8480-6 BMI: 28.8 Code: 32531-1 Heart Rate 1: 73 bpm Height: 5' SpO2: 98% Weight: 150 lbs 12/06/2016 Blood Pressure 1: 146/82 Code: 8480-6 BMI: 26.8 Code: 55457-7 Heart Rate 1: 58 bpm Height: 5' [...] 1: 118/74 Code: 8480-6 BMI: 25.7 Code: 76619-0 Heart Rate 1: 64 bpm Height: 5' SpO2: 98% Weight: 134 lbs 10/02/2014 Blood Pressure 1: 136/88 Code: 8480-6 BMI: 25.9 Code: 67560-8 Heart Rate 1: 68 bpm Height: 5' SpO2: 98% Weight: 135 lbs 01/22/2014 Blood Pressure 1: 122/64 Code: 8480-6 BMI: 25.7 Code: 21575-6 Heart Rate 1: 72 bpm Height: 5' Weight: 134 lbs 02/07/2013 Blood Pressure 1: 140/80 Code: 8480-6 BMI: 23.6 Code: 94277-5 Height: 5' Weight: 123 lbs 02/16/2012 Blood Pressure 1: 102/68 Code: 8480-6 Heart Rate 1: 68 bpm Respiratory Rate: 18 bpm Weight: 131 lbs 01/24/2012 Blood Pressure 1: 120/72 Code: 8480-6 Heart Rate 1: 72 bpm Respiratory Rate: 16 bpm Weight: 133 lbs 10/31/2011 Blood Pressure 1: 136/84 Code: 8480-6 BMI: 23.2 Code: 04417-6 Heart Rate 1: 74 bpm Height: 5'2" Respiratory Rate: 16 bpm Weight: 127 lbs 10/13/2011 Blood Pressure 1: 138/84 Code: 8480-6 BMI: 23.2 Code: 38283-9 Heart Rate 1: 80 bpm Height: 5'2" Respiratory Rate: 16 bpm Weight: 127 lbs Functional Status No Functional Status data History of Present Illness Symptom Name Status Resu lt Effective Date Notes Onset and Resolution o ngoing 07/12/2018 None Location in the [facility] [place] [...] activity 12/06/2016 cardioversion cough Location in the [facility] 11/08/2016 None cough Quality acute [...] ection 11/08/2016 None Hospital Follow Up _ [facility] 11/08/2016 None Hospital Follow Up Quality acute illness 11/08/2016 None Hospital Follow Up Pertinent Findings Other: cough 11/08/2016 None Hospital Follow Up _ inf ection 11/01/2016 None Hospital Follow Up _ [facility] 11/01/2016 None Hospital Follow Up Quality acute [...] Quality blee ding 02/07/2013 None hemorrhoids Quality appeals nurse holly 02/07/2013 None hemorrhoids Onset and Resolution [...] Encounters Encounter Performer Loca tion Codes Date ([id number]) 41163 EST. P ATJUDY, LEVEL III Diagnosis: Low back pain[ICD10: M54.5] [facility] CPT- 4: 46357 07/12/2018 ([id number]) 29131 EST. P ATJUDY, LEVEL IV Diagnosis: Paroxysmal atrial fibrillation[ICD10: I48.0] Diagnosis: Abnormal weight gain[ICD10: R63.5] Diagnosis: Irritable bowel syndrome with diarrhea[ICD10: K58.0] [facility] CPT-4: 01742 12/14/2017 ([id number]) 76403 EST. P ATIENT, LEVEL III Diagnosis: Paroxysmal atrial fibrillation[ICD10: I48.0] Jennifer Walker MD, [facility] CPT-4: 30147 12/06/2016 ([id number]) 80781 EST. P ATIENT, LEVEL IV Diagnosis: Paroxysmal atrial fibrillation[ICD10: I48.0] Diagnosis: Pneumonia, unspecified organism[ICD10: J18.9] Jennifer Walker MD, [facility] CPT-4: 49222 11/08/2016 ([id number]) 02051 EST. P ATIENT, LEVEL III Diagnosis: Cough[ICD10: R05] Diagnosis: Pneumonia, unspecified organism[ICD10: J18.9] Jennifer Walker MD, [facility] CPT-4: 28235 11/01/2016 ([id number]) 09981 EST. P ATIENT, LEVEL III Diagnosis: Generalized anxiety disorder[ICD10: F41.1] Jennifer Walker MD, [facility] CPT-4: 86068 11/05/2015 ([id number]) 73336 EST. P ATIENT, LEVEL III Diagnosis: Rectal bleeding[ICD9: 569.3] Jennifer Walker MD, [facility] CPT- 4: 31222 10/02/2014 ([id number]) 01001 EST. P ATIENT, LEVEL III Diagnosis: Anxiety, generalized[ICD9: 300.02] Diagnosis: Depression[ICD9: 311] Kim Walker MD, [facility] CPT-4: 94352 01/22/2014 ([id number]) 85108 EST. P ATIENT, LEVEL III Diagnosis: Bloody feces[ICD9: 578.1] Kim Walker MD, [facility] CPT-4: 11647 02/07/2013 ([id number]) 84205 EST. P ATIENT, LEVEL III Diagnosis: OSTEOARTH NOS-UNSPEC[ICD9: 715.90] Diagnosis: MUSCLE/LIGAMENT DIS NEC[ICD9: 728.89] Kim Walker MD, [facility] CPT-4: 88366 02/16/2012 ([id number]) 86296 EST. P ATIENT, LEVEL III Diagnosis: Iliotibial band syndrome[ICD9: 728.89] Diagnosis: OSTEOARTH NOS-UNSPEC[ICD9: 715.90] Diagnosis: PAIN IN LIMB[ICD9: 729.5] [facility] CPT-4: 72823 01/24/2012 ([id number]) 04560 EST. P ATIENT, LEVEL IV Diagnosis: OSTEOARTH NOS-UNSPEC[ICD9: 715.90] Diagnosis: ROUTINE GYNE EXAM[ICD9: V72.31] [facility] CPT-4: 66871 10/31/2011 OFFICE VISIT, NEW - LEVEL 4 Diagnosis: Osteoarthritis[ICD9: 715.90] Diagnosis: INSOMNIA NOS[ICD9: 780.52] Diagnosis: PAIN IN LIMB[ICD9: 729.5] [facility] CPT-4: 29707 10/13/2011 Plan of Care Planned Activity Notes C odes Status Date Visit Plan: Low back pain- patient' s pain is actually improved -recommend MRI -refer to Dr Crouch if needed- okay to use tylenol for pain -also discussed PT if indicated-patient verbalized understanding of plan. 07/12/2018 Appointment: Jennifer Vera WPtel: [address] [place], [place] [phone] (30 min) Complex 07/12/2018 Patient Education: Patient Medication Summary Completed 07/12/2018 Patient Education: Back Pain Completed 07/12/2018 Care Plan: MRI LUMBAR SPINE W/O DYE LOINC : 59643-0 Pending 07/12/2018 Patient Education: Patient Medication Summary [...] including TSH 12/14/2017 Appointment: Jennifer Vera WPtel: [phone] (15 min) Moderate 12/14/2017 Patient Education: Patient Medication Summary Completed 12/14/2017 Care Plan: Cbc With Differential Pending 12/14/2017 Visit Plan: Afib-converted to NSR b y Dr Solorzano-on xarelto- instructed patient to report if they start to feel as if their heart rate is becoming uncontrolled or other symptoms develop. Patient verbalized understan zayra. 12/06/2016 Appointment: Jennifer Vera WPtel: [address] [place], [place] [phone] (15 min) Moderate 12/06/2016 Patient Education: Patient Medication Summary Completed 12/06/2016 Visit Plan: Afib-ordered EKG to con firm-increase cartia for heart rate control and start eliquis 5mg twice daily-follow up with Dr Solorzano Pneumonia-finished abx-no further treatment indicated 11/08/2016 Appointment: Jennifer Vera WPtel: [address] [place], [place] [phone] (30 min) Complex 11/08/2016 Patient Education: Patient Medication Summary Completed 11/08/2016 Visit Plan: Pneumonia-on abx per ur gent-continue current treatment and follow up in 1 week to ensure resolution of symptoms. Call sooner for worsening or new symptoms. Patient verbalized understanding of plan. 11/01/2016 Appointment: Jennifer Vera WPtel: [address] [place], [place] [phone] (15 min) Moderate 11/01/2016 Patient Education: Patient [...] current medications. 11/05/2015 Appointment: Jennifer Vera WPtel: [address] [place], [place] [phone] (15 min) Moderate 11/05/2015 Patient Education: Patient [...] 01/22/2014 Appointment: Kim Walker WPtel: [facility] Sick 01/22/2014 Patient Education: Patient Medication Summary Completed 01/22/2014 Care Plan: COMPLETE CBC AUTOMATED LOINC : 45591-2 Ordered 01/22/2014 Visit Plan: Blood in stool [...] work up. 02/07/2013 Appointment: Kim Walker WPtel: [address] [place], [place] [phone] Follow up 02/07/2013 Patient Education: Patient Medication Summary Completed 02/07/2013 Visit Plan: Arthritis- occasionally uncontrolled symptoms- recommend pt to take antiinflammatory as directed for pain control. Use tylenol for break through pain symptoms.Start mobic daily Leg length discrepency - recommended pt to place: dr gilliland inserts- 2 in the left shoe 02/16/2012 Appointment: Kim Walker WPtel: [facility] Follow up 02/16/2012 Patient Education: Patient Medication [...] for re-eval. 01/24/2012 Appointment: Kim Walker WPtel: [address] [place] [address] 01/24/2012 Patient Education: Patient Medication Summary Completed [...] times daily. 10/31/2011 Appointment: Kim Walker WPtel: [address] [place] [address] [facility] 10/31/2011 Patient Education: Patient Medication [...] time insomnia. 10/13/2011 Appointment: [facility]el[id number] [place] 10/13/2011 Patient Education: Patient [...]
--- OUTSIDE RECORDS SUMMARY | 2019-12-04 07:11 | XMS REPORT | CCD ---
Author Author Linda Walker Organization Kim Walker MD, [facility] Address [address] [place] [address] Phone Care Team Providers Care Screw Remover Name Role Phone PP Unavailable CCM Unavailable Summary Purpose Interface Exchange Insurance Providers Payer name Policy type / Coverage type Covered libertarian ID Effective Begin Date Effective End Date RACHEL GBA [id number] 2017 Unknown [employer] [id number] Unknown Family history Mother Diagnosis Age At Onset Breast cancer Unknown Brother Diagnosis Age At Onset Arthritis Unknown Grandson Diagnosis Age At Onset Diabetes Unknown Social History Social History Element Codes Description Effective Dates Tobacco history SNOMED CT: 5488389 Former smoker quit 03/201301/22/2014 Employment Unknown Retir [...] Fill Instructions Prozac 40 mg capsule RxNorm: 105374 TAKE ONE CAPSULE BY MOUTH ONCE DAILY 06/08/2018 No Stop Date Active Xanax 0.25 mg tablet RxNorm: 316249 TAKE 1/2 TO 1 (ONE-HALF TO ONE) TABLET B Y MOUTH 4 TIMES DAILY NEEDED 05/18/2018 No Stop Date Active Synthroid 75 mcg tablet RxNorm: 885733 1 Tablet(s) PO daily 03/29/2018 09/24/2018 Active will call for refill when ready Xanax 0.25 mg tablet RxNorm: 190242 1/2 - 1 Tablet(s) PO QID as needed anxie ty attack 01/24/2018 05/18/2018 Inactive Synthroid 25 mcg tablet RxNorm: 497741 1 Tablet(s) PO daily 12/15/2017 03/28/2018 Inactive take on an empty stomach by itself Flagyl 500 mg tablet RxNorm: 517049 1 Tablet(s) PO TID 12/15/2017 12/14/2017 Inactive Flagyl 500 mg tablet RxNorm: 767164 1 Tablet(s) PO TID 12/15/2017 12/24/2017 Inactive Synthroid 25 mcg tablet RxNorm: 036235 1 Tablet(s) PO daily 12/15/2017 12/14/2017 Inactive Fish Oil 360 mg-1,20 0 mg capsule,delayed release RxNorm: 1 Capsule(s) PO BID 12/14/2017 No Stop Date Active Xifaxan 550 mg tablet RxNorm: 867056 1 Tablet(s) PO TID 12/14/2017 12/27/2017 Inactive Xanax 0.25 mg tablet RxNorm: 474000 1/2 - 1 Tablet(s) PO QID as needed anxie ty attack 12/01/2017 07/11/2018 Inactive Xanax 0.25 mg tablet RxNorm: 952920 1/2 - 1 Tablet(s) PO QID as needed anxie ty attack 08/22/2017 08/28/2017 Inactive Cartia XT 180 mg cap clifford,extended release RxNorm: 317120 Capsule(s) TAKE ONE C APSULE BY MOUTH ONCE DAILY AT BEDTIME 08/04/2017 07/29/2018 Active Prozac 40 mg capsule RxNorm: 307460 Capsule(s) TAKE ONE CAPSULE BY MOUTH ONC E DAILY 06/08/2017 06/07/2018 Inactive Prozac 40 mg capsule RxNorm: 083274 TAKE ONE CAPSULE BY MOUTH ONCE DAILY 05/30/2017 06/07/2017 In active Cartia XT 180 mg cap clifford,extended release RxNorm: 595514 TAKE ONE CAPSULE BY M OUTH ONCE DAILY AT BEDTIME 05/08/2017 08/03/2017 Inactive Prozac 40 mg capsule RxNorm: 612133 TAKE ONE CAPSULE BY MOUTH ONCE DAILY 02/03/2017 05/29/2017 In active Eliquis 5 mg tablet RxNorm: 4714051 1 Tablet(s) PO BID 11/09/2016 12/05/2016 Inactive Eliquis 5 mg tablet RxNorm: 3216762 1 Tablet(s) PO BID 11/09/2016 11/08/2016 Inactive Cartia XT 180 mg cap clifford,extended release RxNorm: 003661 1 Capsule(s) PO QHS 11/08/2016 05/06/2017 In active Prozac 40 mg capsule RxNorm: 438861 TAKE ONE CAPSULE BY MOUTH ONCE DAILY 11/07/2016 02/02/2017 In active Phenergan with Codei ne Syrup RxNorm: 2.5 Milliliter(s) PO QHS as needed 10/28/2016 07/11/2018 In active levofloxacin 500 mg tablet RxNorm: 851709 1 Tablet(s) PO daily 10/28/2016 11/06/2016 Inactive Prozac 40 mg capsule RxNorm: 773598 TAKE ONE CAPSULE BY MOUTH ONCE DAILY 08/01/2016 10/29/2016 In active Prozac 40 mg capsule RxNorm: 233246 1 Capsule(s) PO daily 11/05/2015 05/02/2016 Inactive [SAVINGS FOR UNINSURED PATIENTS -- BIN:0 87281, PCN: [id number], Group: [id number], ID# [id number], Process claim through [employer], for questions: . THIS IS NOT INSURANCE.] Xanax 0.25 mg tablet RxNorm: 656591 1/2 - 1 Tablet(s) PO QID as needed anxie ty attack 11/02/2015 01/29/2016 Inactive Prozac 40 mg capsule RxNorm: 335175 Capsule(s) TAKE ONE CAPSULE BY MOUTH ONC E DAILY 08/12/2015 08/11/2015 Inactive NEEDS APPT Prozac 40 mg capsule RxNorm: 515169 TAKE ONE CAPSULE BY MOUTH ONCE DAILY 08/12/2015 07/31/2016 In active hydrocortisone aceta te 25 mg rectal suppository RxNorm: 4884451 1 Suppository RTL QH S 10/02/2014 07/11/2018 Inactive daily HS x 1 week, then twice weekly the n as needed Prozac 40 mg capsule RxNorm: 384389 TAKE ONE CAPSULE BY MOUTH ONCE DAILY 07/31/2014 01/26/2015 In active Prozac 40 mg capsule RxNorm: 069021 1 Capsule(s) PO daily 07/30/2014 02/24/2015 Inactive [SAVINGS FOR NON-COVERED DRUGS -- BIN:00 3585, PCN: [id number], Group: XXXXX, ID# [id number], Questions: . THIS IS NOT INSURANCE.] Xanax 0.25 mg tablet RxNorm: 746379 1/2 - 1 Tablet(s) PO QID as needed anxie ty attack 01/22/2014 03/22/2014 Inactive Prozac 40 mg capsule RxNorm: 676222 1 Capsule(s) PO daily 01/22/2014 07/20/2014 Inactive [SAVINGS FOR UNINSURED PATIENTS -- BIN:0 69121, PCN: ASPROD1, Group: [id number], ID# [id number], Process claim through [employer], for questions: . THIS IS NOT INSURANCE.] Prozac 20 mg capsule RxNorm: 130402 1 Capsule(s) PO daily 08/08/2013 01/21/2014 Inactive Prozac 20 mg capsule RxNorm: 155643 1 Capsule(s) PO daily 07/19/2013 08/07/2013 Inactive Prozac 20 mg capsule RxNorm: 646215 1 Capsule(s) PO daily 02/12/2013 07/18/2013 Inactive Influenza Virus Vacc ine 0.5 mL RxNorm: IM 02/16/2012 02/16/2012 Inactive meloxicam 7.5 mg tablet RxNorm: 114886 1 Tablet(s) PO BID ONE PILL IN MORNING, IF PAIN IS UNCONTROLLED, MAY TAKE ONE EXTRA PILL IN THe PM do not take with ibuprofen or aleve 01/24/2012 02/15/2012 Inactive Aspirin Low Dose 81 mg tablet,delayed release RxNorm: 663172 1 Tablet(s) PO daily No Start Date Active Tylenol 500 mg RxNorm: 1 Tablet(s) PO BID No Start Date Active Repatha SureClick 14 0 mg/mL subcutaneous pen injector RxNorm: 0390900 1 Milliliter(s) SQ Q2 weeks No Start Date Active amiodarone 200 mg ta blet RxNorm: 695353 1/2 Tablet(s) PO daily No Start Date Active melatonin 10 mg tablet RxNorm: 2198093 1 Tablet(s) PO QHS No Start Date Active pantoprazole 40 mg t ablet,delayed release RxNorm: 017400 1 Tablet(s) PO daily No Start Date Active isosorbide mononitra te ER 30 mg tablet,extended release 24 hr RxNorm: 817017 1 Tablet(s) PO daily No Start Date Active melatonin 3 mg Tab RxNorm: 920861 2 Tablet(s) PO QHS No Start Date 12/13/2017 Inactive Xarelto 20 mg tablet RxNorm: 6352424 1 Tablet(s) PO QPM No Start Date 12/13/2017 Inactive Tylenol 8 Hour 650 m g tablet,extended release RxNorm: 7427848 1 Tablet(s) PO BID No Start Date 07/12/2018 Inactive Calcium 600 + D(3) 6 00 mg (1,500 mg)-400 unit Tab RxNorm: 706791 1 Tablet(s) PO QPM No Start Date 12/13/2017 Inactive prasugrel 10 mg tablet RxNorm: 889886 1 Tablet(s) PO daily No Start Date 07/11/2018 Inactive Fish Oil 360 mg-1,20 0 mg capsule,delayed release RxNorm: 1 Capsule(s) PO daily No Start Date 12/13/2017 Inactive PreserVision AREDS 2 oral RxNorm: 4987066 oral No Start Date 07/11/2018 Inactive Prozac 20 mg capsule RxNorm: 830152 1 Capsule(s) PO daily No Start Date 02/11/2013 Inactive Breo Ellipta inhalation RxNorm: 4072780 inhalation No Start Date 12/13/2017 Inactive fenofibrate nanocrys tallized 145 mg tablet RxNorm: 511344 Tablet(s) PO daily No Start Date 10/31/2016 Inactive Centrum Silver Ultra Women's Tab RxNorm: 1 Tablet(s) PO QHS No Start Date 10/31/2016 Inactive Cartia XT 120 mg cap clifford,extended release RxNorm: 441206 1 Capsule(s) PO QHS No Start Date [...] (3rd IS) 4.90 uIU/mL 06/25/2018 Free T4 Yen849 FREE T4 1.15 ng/dL 06/25/2018 Free T4 Eqp235 FREE T4 0.52 ng/dL 03/22/2018 Tsh Ord6 [...] 33.4 pg 12/15/2017 Cbc With Differential Ord2 [place]% 17.3 % 12/15/2017 Cbc With Differential Ord2 Eos% 3.1 % 12/15/2017 Cbc With Differential Ord2 MCHC 33.2 pg 12/15/2017 Cbc With Differential Ord2 Baso% 0.8 % 12/15/2017 Cbc With Differential Ord2 PLT 235 K/ul 12/15/2017 Cbc With Differential Ord2 Neut ABS# 1.23 K/ul 12/15/2017 Cbc With Differential Ord2 RDW 13.6 % 12/15/2017 Cbc With Differential Ord2 Lymph ABS# 0.78 K/ul 12/15/2017 Cbc With Differential Ord2 [place] ABS# 0.4 K/ul 12/15/2017 Cbc With Differential Ord2 Eos ABS# 0.1 K/ul 12/15/2017 Cbc With Differential Ord2 Baso ABS# 0.0 K/ul 12/15/2017 Free T4 Ksc480 FREE T4 0.34 ng/dL 12/15/2017 Test(s) Not Perfromed [id number] Test(s) Not Performed Test(s) Not Performed. See Below: 12/14/2017 Test(s) Not Perfromed [id number] TEST NAME CBC 12/14/2017 Test(s) Not Perfromed [id number] Rejection Reason No Suitable Specimen Receive d 12/14/2017 Test(s) Not Perfromed [id number] COMMENT Grace notified for redraw 12/14/2017 Test(s) Not Perfromed [id number] [employer] Wale Whitman 12/14/2017 Tsh Ord6 TSH (3rd IS) 48.79 uIU/mL 12/14/2017 Comp Metabolic Dxd780 NA 137 mEq/L 12/14/2017 Comp Metabolic Swn866 K 4.3 mEq/L 12/14/2017 Comp Metabolic Kzq888 CL 101 mEq/L 12/14/2017 Comp Metabolic Cez293 CO2 29.0 mEq/L 12/14/2017 Comp Metabolic Fht274 AN ION GAP 11 12/14/2017 Comp Metabolic Cwz764 GL UCOSE 81 mg/dL 12/14/2017 Comp Metabolic Ygv972 Cr eat 0.7 mg/dL 12/14/2017 Comp Metabolic Nit145 eG FR 86 ml/min/1.73m2 12/14 Comp Metabolic Jax954 BUN 14 mg/dL 12/14/2017 Comp Metabolic Eih876 B/ C Ratio 19.7 Ratio 12/14/2017 Comp Metabolic Iem393 CA LCIUM 9.2 mg/dL 12/14/2017 Comp Metabolic Eet705 AL K PHOS 112 U/L 12/14/2017 Comp Metabolic Qgz687 T(SGOT) 25 U/L 12/14/2017 Comp Metabolic Fkl815 AL T(SGPT) 20 U/L 12/14/2017 Comp Metabolic Sgy962 BI LI T 0.8 mg/dL 12/14/2017 Comp Metabolic Vwn892 AL BUMIN 4.1 g/dL 12/14/2017 Comp Metabolic Woq564 TP RO 6.9 g/dL 12/14/2017 Comp Metabolic Vos317 GL OB 2.9 g/dL 12/14/2017 Comp Metabolic Yya753 A/ G Ratio 1.4 Ratio 12/14/2017 Comp Metabolic Pkg415 Os mo 273 mOsmo 12/14/2017 LIPID GRP HDL TE ST 70 MG/DL 01/23/2014 LIPID GRP TRIG 134 MG/DL 01/23/2014 LIPID GRP [id number] TEST L DL 117 MG/DL 01/23/2014 LIPID GRP CHOL 214 MG/DL 01/23/2014 LIPID GRP RCHOL/ HDL 3.06 RATIO 01/23/2014 LIPID GRP [id number] NON-HD L CH 144 MG/DL 01/23/2014 TSH 8565554 TSH 1.784 uIU/ML 01/23/2014 CBC 8565977 WBC 4.7 10e9/L 01/23/2014 CBC 7535773 RBC 4.10 10e12/L 01/23/2014 CBC 8126554 HGB 13.3 g/dL 01/23/2014 CBC 9281073 HCT DET 39.2 % 01/23/2014 CBC 1919544 MCV 95.6 fL 01/23/2014 CBC 8902811 MCH 32.4 pg 01/23/2014 CBC 7537171 MCHC 33.9 g/dL 01/23/2014 CBC 1075413 PLT 232 10e9/L 01/23/2014 CBC 2250076 MPV 10.9 fL 01/23/2014 CBC 2746608 DORON % 57.4 % 01/23/2014 CBC 9525267 LY % 28.0 % 01/23/2014 CBC 2867132 MON % 12.9 % 01/23/2014 CBC 6256138 EOS % 1.3 % 01/23/2014 CBC 3561422 BASO % 0.4 % 01/23/2014 CBC 6951772 RDW 12.1 % 01/23/2014 CBC 5114868 ABS DORON 2.70 10e9/L 01/23/2014 CBC 6349544 ABS LYMPH 1.32 10e9/L 01/23/2014 CBC 3910001 ABS MONO 0.61 10e9/L 01/23/2014 CBC 2284113 ABS EOS 0.06 10e9/L 01/23/2014 CBC 0484680 ABS BASO 0.02 10e9/L 01/23/2014 CBC 4734496 RDW-SD 41.2 fL 01/23/2014 CHEM 14 1893960 AST 18 U/L 01/23/2014 CHEM 14 6543986 ALT 13 IU/L 01/23/2014 CHEM 14 8819536 BUN 16 MG/DL 01/23/2014 CHEM 14 3131302 ALBUMIN 4.2 GM/DL 01/23/2014 CHEM 14 9893476 CHLORIDE 105 MMOL/L 01/23/2014 CHEM 14 1672327 BILI TOT 0.7 MG/DL 01/23/2014 CHEM 14 6091118 ALK PHOS 61 U/L 01/23/2014 CHEM 14 7604660 SODIUM 138 MMOL/L 01/23/2014 CHEM 14 1600222 CREATINI NE 0.65 MG/DL 01/23/2014 CHEM 14 2642558 CALCIUM 9.5 MG/DL 01/23/2014 CHEM 14 4271197 POTASSIUM 4.4 MMOL/L 01/23/2014 CHEM 14 5518788 PROT TOT 6.8 GM/DL 01/23/2014 CHEM 14 3421807 GLUCOSE 93 MG/DL 01/23/2014 CHEM 14 0870536 BICARB 28 MMOL/L 01/23/2014 CHEM 14 8324839 ANION GAP 5 MEQ/L 01/23/2014 GFR CALC 5160285 GFR AA >60 ML/MIN 01/23/2014 GFR CALC 3696190 GFR NON -AA >60 ML/MIN 01/23/2014 URIC ACID 4422168 URIC A KYLE 5.7 MG/DL 10/13/2011 CHEM 14 6673094 AST 19 U/L 10/13/2011 CHEM 14 9481432 ALT 16 U/L 10/13/2011 CHEM 14 0977603 BUN 21 MG/DL 10/13/2011 CHEM 14 6296388 ALBUMIN 4.2 GM/DL 10/13/2011 CHEM 14 4946033 CHLORIDE 103 MMOL/L 10/13/2011 CHEM 14 9445917 BILI TOT 0.6 MG/DL 10/13/2011 CHEM 14 0515187 ALK PHOS 71 U/L 10/13/2011 CHEM 14 3690869 SODIUM 141 MMOL/L 10/13/2011 CHEM 14 4353773 CREATINI NE 0.65 MG/DL 10/13/2011 CHEM 14 4778304 CALCIUM 9.3 MG/DL 10/13/2011 CHEM 14 0740082 POTASSIUM 4.2 MMOL/L 10/13/2011 CHEM 14 9782516 PROT TOT 6.8 GM/DL 10/13/2011 CHEM 14 6148216 GLUCOSE 69 MG/DL 10/13/2011 CHEM 14 8766066 BICARB 27 MMOL/L 10/13/2011 CHEM 14 8929996 ANION GAP 11 MMOL/L 10/13/2011 CBC 6190108 WBC 6.1 10e9/L 10/13/2011 CBC 4337089 RBC 4.11 10e12/L 10/13/2011 CBC 7994807 HGB 13.3 g/dL 10/13/2011 CBC 3694319 HCT DET 39.6 % 10/13/2011 CBC 4158872 MCV 96.4 fL 10/13/2011 CBC 5858081 MCH 32.4 pg 10/13/2011 CBC 7854576 MCHC 33.6 g/dL 10/13/2011 CBC 6630330 PLT 238 10e9/L 10/13/2011 CBC 3110030 MPV 11.7 fL 10/13/2011 CBC 2730980 DORON % 50.2 % 10/13/2011 CBC 9473998 LY % 35.6 % 10/13/2011 CBC 3415957 MON % 12.7 % 10/13/2011 CBC 0707160 EOS % 1.2 % 10/13/2011 CBC 2708606 BASO % 0.3 % 10/13/2011 CBC 9958139 RDW 12.3 % 10/13/2011 CBC 9074976 ABS DORON 3.06 10e9/L 10/13/2011 CBC 3168396 ABS LYMPH 2.17 10e9/L 10/13/2011 CBC 4934968 ABS MONO 0.77 10e9/L 10/13/2011 CBC 4345017 ABS EOS 0.07 10e9/L 10/13/2011 CBC 2640995 ABS BASO 0.02 10e9/L 10/13/2011 CBC 0047909 RDW-SD 42.3 fL 10/13/2011 GFR CALC 0445270 GFR AA >60 ML/MIN 10/13/2011 GFR CALC 6684031 GFR NON -AA >60 ML/MIN 10/13/2011 ESR 0177241 ESR 14 MM/HR 10/13/2011 Review of Systems [...] Neurologic No memory loss 11/05/2015 Psychiatric anxiety 01/2016 Musculoskeletal No joint complaint 11/05/2015 Eyes [...] 1995 Ears/Nose/Throat oral cavity/pharynx/larynx Overall: no masses 07/12/2018 [...] 02/07/2013 None Full Exam - General 1995 Psychiatric orientation/consciousness Overall: oriented to person, place [...] masses 01/24/2012 None Full Exam - General 1995 Respiratory respiratory effort/rhythm Overall: no retractions 01/24/2012 [...] flexion 10/31/2011 None Full Exam - General 1995 Musculoskeletal lower extremity ROM - foot: pain [...] SY CPT-4: G8553 01/24/2012 ROUTINE VENIPUNCTURE CPT-4: 41646 10/13/2011 Vital Signs Date Vital 07/12/2018 Blood Pressure 1: 126/68 Code: 8480-6 BMI: 28.4 Code: 65444-0 Heart Rate 1: 71 bpm Height: 5' SpO2: 97% Weight: 148 lbs 12/14/2017 Blood Pressure 1: 138/80 Code: 8480-6 BMI: 28.8 Code: 27024-6 Heart Rate 1: 73 bpm Height: 5' SpO2: 98% Weight: 150 lbs 12/06/2016 Blood Pressure 1: 146/82 Code: 8480-6 BMI: 26.8 Code: 99147-9 Heart Rate 1: 58 bpm Height: 5' [...] 1: 118/74 Code: 8480-6 BMI: 25.7 Code: 55503-9 Heart Rate 1: 64 bpm Height: 5' SpO2: 98% Weight: 134 lbs 10/02/2014 Blood Pressure 1: 136/88 Code: 8480-6 BMI: 25.9 Code: 15091-0 Heart Rate 1: 68 bpm Height: 5' SpO2: 98% Weight: 135 lbs 01/22/2014 Blood Pressure 1: 122/64 Code: 8480-6 BMI: 25.7 Code: 28107-8 Heart Rate 1: 72 bpm Height: 5' Weight: 134 lbs 02/07/2013 Blood Pressure 1: 140/80 Code: 8480-6 BMI: 23.6 Code: 89871-9 Height: 5' Weight: 123 lbs 02/16/2012 Blood Pressure 1: 102/68 Code: 8480-6 Heart Rate 1: 68 bpm Respiratory Rate: 18 bpm Weight: 131 lbs 01/24/2012 Blood Pressure 1: 120/72 Code: 8480-6 Heart Rate 1: 72 bpm Respiratory Rate: 16 bpm Weight: 133 lbs 10/31/2011 Blood Pressure 1: 136/84 Code: 8480-6 BMI: 23.2 Code: 77438-8 Heart Rate 1: 74 bpm Height: 5'2" Respiratory Rate: 16 bpm Weight: 127 lbs 10/13/2011 Blood Pressure 1: 138/84 Code: 8480-6 BMI: 23.2 Code: 71459-1 Heart Rate 1: 80 bpm Height: 5'2" [...] activity 12/06/2016 cardioversion cough Location in the [facility] 11/08/2016 None cough Quality acute 11/08/2016 [...] ection 11/01/2016 None Hospital Follow Up _ e [facility] 11/01/2016 None Hospital Follow Up Quality acute illness 11/01/2016 None Hospital Follow Up Pertinent Findings Other: cough 11/01/2016 None cough Location in the [facility] 11/01/2016 None cough Quality acute 11/01/2016 [...] Quality blee ding 02/07/2013 None hemorrhoids Quality long filler cigar roller machine holly 02/07/2013 None hemorrhoids Onset and Resolution [...] Encounters Encounter Performer Loca tion Codes Date ([id number]) 90481 EST. P ATIENT, LEVEL III Diagnosis: Low back pain[ICD10: M54.5] [facility] CPT- 4: 05730 07/12/2018 ([id number]) 79453 EST. P ATIENT, LEVEL IV Diagnosis: Paroxysmal atrial fibrillation[ICD10: I48.0] Diagnosis: Abnormal weight gain[ICD10: R63.5] Diagnosis: Irritable bowel syndrome with diarrhea[ICD10: K58.0] [facility] CPT-4: 92416 12/14/2017 ([id number]) 36922 EST. P ATIENT, LEVEL III Diagnosis: Paroxysmal atrial fibrillation[ICD10: I48.0] [facility] CPT-4: 69043 12/06/2016 ([id number]) 50297 EST. P ATIENT, LEVEL IV Diagnosis: Paroxysmal atrial fibrillation[ICD10: I48.0] Diagnosis: Pneumonia, unspecified organism[ICD10: J18.9] Jennifer Walker MD, [facility] CPT-4: 59277 11/08/2016 ([id number]) 68592 EST. P ATIENT, LEVEL III Diagnosis: Cough[ICD10: R05] Diagnosis: Pneumonia, unspecified organism[ICD10: J18.9] Jennifer Walker MD, [facility] CPT-4: 43561 11/01/2016 ([id number]) 50272 EST. P ATIENT, LEVEL III Diagnosis: Generalized anxiety disorder[ICD10: F41.1] Jennifer Walker MD, [facility] CPT-4: 08261 11/05/2015 ([id number]) 27888 EST. P ATIENT, LEVEL III Diagnosis: Rectal bleeding[ICD9: 569.3] Jennifer Walker MD, [facility] CPT- 4: 54934 10/02/2014 ([id number]) 78054 EST. P ATIENT, LEVEL III Diagnosis: Anxiety, generalized[ICD9: 300.02] Diagnosis: Depression[ICD9: 311] Kim Walker MD, [facility] CPT-4: 92439 01/22/2014 ([id number]) 29760 EST. P ATIENT, LEVEL III Diagnosis: Bloody feces[ICD9: 578.1] Kim Walker MD, [facility] CPT-4: 54930 02/07/2013 ([id number]) 98800 EST. P ATIENT, LEVEL III Diagnosis: OSTEOARTH NOS-UNSPEC[ICD9: 715.90] Diagnosis: MUSCLE/LIGAMENT DIS NEC[ICD9: 728.89] Kim Walker MD, [facility] CPT-4: 51092 02/16/2012 ([id number]) 60395 EST. P ATIENT, LEVEL III Diagnosis: Iliotibial band syndrome[ICD9: 728.89] Diagnosis: OSTEOARTH NOS-UNSPEC[ICD9: 715.90] Diagnosis: PAIN IN LIMB[ICD9: 729.5] [facility] CPT-4: 37277 01/24/2012 [id number]) 89280 EST. P ATIENT, LEVEL IV Diagnosis: OSTEOARTH NOS-UNSPEC[ICD9: 715.90] Diagnosis: ROUTINE GYNE EXAM[ICD9: V72.31] [facility] CPT-4: 58668 10/31/2011 OFFICE VISIT, NEW - LEVEL 4 Diagnosis: Osteoarthritis[ICD9: 715.90] Diagnosis: INSOMNIA NOS[ICD9: 780.52] Diagnosis: PAIN IN LIMB[ICD9: 729.5] [facility] CPT-4: 52312 10/13/2011 Plan of Care Planned Activity Notes C odes Status Date Visit Plan: Low back pain- patient' s pain is actually improved -recommend MRI -refer to Dr Crouch if needed- okay to use tylenol for pain -also discussed PT if indicated-patient verbalized understanding of plan. 07/12/2018 Appointment: Jennifer Vera WPtel: [phone] (30 min) Complex 07/12/2018 Patient Education: Patient Medication Summary Completed 07/12/2018 Patient Education: Back Pain Completed 07/12/2018 Care Plan: MRI LUMBAR SPINE W/O DYE LOINC : 13607-4 Pending 07/12/2018 Patient Education: Patient Medication Summary [...] including TSH 12/14/2017 Appointment: Jennifer Vera WPtel: [phone] (15 min) Moderate 12/14/2017 Patient Education: Patient Medication Summary Completed 12/14/2017 Care Plan: Cbc With Differential Pending 12/14/2017 Visit Plan: Afib-converted to NSR b y Dr Solorzano-on xarelto- instructed patient to report if they start to feel as if their heart rate is becoming uncontrolled or other symptoms develop. Patient verbalized understan zayra. 12/06/2016 Appointment: Jennifer Vera WPtel: [phone] (15 min) Moderate 12/06/2016 Patient Education: Patient Medication Summary Completed 12/06/2016 Visit Plan: Afib-ordered EKG to con firm-increase cartia for heart rate control and start eliquis 5mg twice daily-follow up with Dr Jeanine Ying-finished abx-no further treatment indicated 11/08/2016 Appointment: Jennifer Vera WPtel: [phone] (30 min) Complex 11/08/2016 Patient Education: Patient Medication Summary Completed 11/08/2016 Visit Plan: Pneumonia-on abx per ur gent-continue current treatment and follow up in 1 week to ensure resolution of symptoms. Call sooner for worsening or new symptoms. Patient verbalized understanding of plan. 11/01/2016 Appointment: Jennifer Vera WPtel: [phone] (15 min) Moderate 11/01/2016 Patient Education: Patient [...] current medications. 11/05/2015 Appointment: Jennifer Vera WPtel: [phone] (15 min) Moderate 11/05/2015 Patient Education: Patient [...] panic attacks 01/22/2014 Appointment: Kim Walker WPtel: [facility] [facility] 01/22/2014 Patient Education: Patient Medication Summary Completed 01/22/2014 Care Plan: COMPLETE CBC AUTOMATED LOINC : 29737-1 Ordered 01/22/2014 Visit Plan: Blood in stool [...] work up. 02/07/2013 Appointment: Kim Walker WPtel: [facility] Follow up 02/07/2013 Patient Education: Patient Medication Summary Completed 02/07/2013 Visit Plan: Arthritis- occasionally uncontrolled symptoms- recommend pt to take antiinflammatory as directed for pain control. Use tylenol for break through pain symptoms.Start mobic daily Leg length discrepency - recommended pt to place: dr darshana reddy- 2 in the left shoe 02/16/2012 Appointment: Kim Walker WPtel: [facility] Follow up 02/16/2012 Patient Education: Patient Medication [...] for re-eval. 01/24/2012 Appointment: Kim Walker WPtel: [facility]5 [place] [phone] Other 01/24/2012 Patient Education: Patient Medication Summary [...] times daily. 10/31/2011 Appointment: Kim Walker WPtel: [facility] [facility] 10/31/2011 Patient Education: Patient [...] time insomnia. 10/13/2011 Appointment: Kim Walker WPtel: [facility] [place] New Patient 10/13/2011 Patient Education: Patient [...] Lara for follow up Plan: ([id number]) VICKY MONTOYA VACC, 3 YRS & >, IM - [...]
--- OUTSIDE RECORDS SUMMARY | 2019-12-04 07:12 | XMS REPORT | CCD ---
Author Author Linda Walker Organization Kim Walker MD, [facility] Address [address] [place] [address] Phone Care Team Providers Care Manager Copy Name Role Phone PP Unavailable CCM Unavailable Summary Purpose Interface Exchange Insurance Providers Payer name Policy type / Coverage type Covered democrat ID Effective Begin Date Effective End Date RACHEL GBA [id number] 2017 Unknown [employer] [id number] Unknown Family history Mother Diagnosis Age At Onset Breast cancer Unknown Brother Diagnosis Age At Onset Arthritis Unknown Grandson Diagnosis Age At Onset Diabetes Unknown Social History Social History Element Codes Description Effective Dates Tobacco history SNOMED CT: 4090646 Former smoker quit 03/201301/22/2014 Employment Unknown Retir [...] Fill Instructions Prozac 40 mg capsule RxNorm: 585276 TAKE ONE CAPSULE BY MOUTH ONCE DAILY 06/08/2018 No Stop Date Active Xanax 0.25 mg tablet RxNorm: 052916 TAKE 1/2 TO 1 (ONE-HALF TO ONE) TABLET B Y MOUTH 4 TIMES DAILY NEEDED 05/18/2018 No Stop Date Active Synthroid 75 mcg tablet RxNorm: 155829 1 Tablet(s) PO daily 03/29/2018 09/24/2018 Active will call for refill when ready Xanax 0.25 mg tablet RxNorm: 616593 1/2 - 1 Tablet(s) PO QID as needed anxie ty attack 01/24/2018 05/18/2018 Inactive Synthroid 25 mcg tablet RxNorm: 740841 1 Tablet(s) PO daily 12/15/2017 03/28/2018 Inactive take on an empty stomach by itself Flagyl 500 mg tablet RxNorm: 287831 1 Tablet(s) PO TID 12/15/2017 12/14/2017 Inactive Flagyl 500 mg tablet RxNorm: 537891 1 Tablet(s) PO TID 12/15/2017 12/24/2017 Inactive Synthroid 25 mcg tablet RxNorm: 585556 1 Tablet(s) PO daily 12/15/2017 12/14/2017 Inactive Fish Oil 360 mg-1,20 0 mg capsule,delayed release RxNorm: 1 Capsule(s) PO BID 12/14/2017 No Stop Date Active Xifaxan 550 mg tablet RxNorm: 885681 1 Tablet(s) PO TID 12/14/2017 12/27/2017 Inactive Xanax 0.25 mg tablet RxNorm: 500951 1/2 - 1 Tablet(s) PO QID as needed anxie ty attack 12/01/2017 07/11/2018 Inactive Xanax 0.25 mg tablet RxNorm: 377333 1/2 - 1 Tablet(s) PO QID as needed anxie ty attack 08/22/2017 08/28/2017 Inactive Cartia XT 180 mg cap clifford,extended release RxNorm: 812713 Capsule(s) TAKE ONE C APSULE BY MOUTH ONCE DAILY AT BEDTIME 08/04/2017 07/29/2018 Active Prozac 40 mg capsule RxNorm: 902373 Capsule(s) TAKE ONE CAPSULE BY MOUTH ONC E DAILY 06/08/2017 06/07/2018 Inactive Prozac 40 mg capsule RxNorm: 409107 TAKE ONE CAPSULE BY MOUTH ONCE DAILY 05/30/2017 06/07/2017 In active Cartia XT 180 mg cap clifford,extended release RxNorm: 718230 TAKE ONE CAPSULE BY M OUTH ONCE DAILY AT BEDTIME 05/08/2017 08/03/2017 Inactive Prozac 40 mg capsule RxNorm: 070815 TAKE ONE CAPSULE BY MOUTH ONCE DAILY 02/03/2017 05/29/2017 In active Eliquis 5 mg tablet RxNorm: 7769241 1 Tablet(s) PO BID 11/09/2016 12/05/2016 Inactive Eliquis 5 mg tablet RxNorm: 8547003 1 Tablet(s) PO BID 11/09/2016 11/08/2016 Inactive Cartia XT 180 mg cap clifford,extended release RxNorm: 719613 1 Capsule(s) PO QHS 11/08/2016 05/06/2017 In active Prozac 40 mg capsule RxNorm: 426930 TAKE ONE CAPSULE BY MOUTH ONCE DAILY 11/07/2016 02/02/2017 In active Phenergan with Codei ne Syrup RxNorm: 2.5 Milliliter(s) PO QHS as needed 10/28/2016 07/11/2018 In active levofloxacin 500 mg tablet RxNorm: 936465 1 Tablet(s) PO daily 10/28/2016 11/06/2016 Inactive Prozac 40 mg capsule RxNorm: 356087 TAKE ONE CAPSULE BY MOUTH ONCE DAILY 08/01/2016 10/29/2016 In active Prozac 40 mg capsule RxNorm: 987884 1 Capsule(s) PO daily 11/05/2015 05/02/2016 Inactive [SAVINGS FOR UNINSURED PATIENTS -- BIN:0 23589, PCN: ASPROD1, Group: [id number], ID# [id number], Process claim through [employer], for questions: . THIS IS NOT INSURANCE.] Xanax 0.25 mg tablet RxNorm: 559258 1/2 - 1 Tablet(s) PO QID as needed anxie ty attack 11/02/2015 01/29/2016 Inactive Prozac 40 mg capsule RxNorm: 177508 Capsule(s) TAKE ONE CAPSULE BY MOUTH ONC E DAILY 08/12/2015 08/11/2015 Inactive NEEDS APPT Prozac 40 mg capsule RxNorm: 329341 TAKE ONE CAPSULE BY MOUTH ONCE DAILY 08/12/2015 07/31/2016 In active hydrocortisone aceta te 25 mg rectal suppository RxNorm: 0250675 1 Suppository RTL QH S 10/02/2014 07/11/2018 Inactive daily HS x 1 week, then twice weekly the n as needed Prozac 40 mg capsule RxNorm: 158436 TAKE ONE CAPSULE BY MOUTH ONCE DAILY 07/31/2014 01/26/2015 In active Prozac 40 mg capsule RxNorm: 418489 1 Capsule(s) PO daily 07/30/2014 02/24/2015 Inactive [SAVINGS FOR NON-COVERED DRUGS -- BIN:00 3585, PCN: ASPROD1, Group: XXXXX, ID# [id number], Questions: . THIS IS NOT INSURANCE.] Xanax 0.25 mg tablet RxNorm: 112217 1/2 - 1 Tablet(s) PO QID as needed anxie ty attack 01/22/2014 03/22/2014 Inactive Prozac 40 mg capsule RxNorm: 319656 1 Capsule(s) PO daily 01/22/2014 07/20/2014 Inactive [SAVINGS FOR UNINSURED PATIENTS -- BIN:0 35092, PCN: ASPROD1, Group: [id number], ID# [id number], Process claim through [employer], for questions: . THIS IS NOT INSURANCE.] Prozac 20 mg capsule RxNorm: 030987 1 Capsule(s) PO daily 08/08/2013 01/21/2014 Inactive Prozac 20 mg capsule RxNorm: 118974 1 Capsule(s) PO daily 07/19/2013 08/07/2013 Inactive Prozac 20 mg capsule RxNorm: 382355 1 Capsule(s) PO daily 02/12/2013 07/18/2013 Inactive Influenza Virus Vacc ine 0.5 mL RxNorm: IM 02/16/2012 02/16/2012 Inactive meloxicam 7.5 mg tablet RxNorm: 252330 1 Tablet(s) PO BID ONE PILL IN MORNING, IF PAIN IS UNCONTROLLED, MAY TAKE ONE EXTRA PILL IN THe PM do not take with ibuprofen or aleve 01/24/2012 02/15/2012 Inactive Aspirin Low Dose 81 mg tablet,delayed release RxNorm: 015341 1 Tablet(s) PO daily No Start Date Active Tylenol 500 mg RxNorm: 1 Tablet(s) PO BID No Start Date Active Repatha SureClick 14 0 mg/mL subcutaneous pen injector RxNorm: 8209434 1 Milliliter(s) SQ Q2 weeks No Start Date Active amiodarone 200 mg ta blet RxNorm: 086326 1/2 Tablet(s) PO daily No Start Date Active melatonin 10 mg tablet RxNorm: 5629285 1 Tablet(s) PO QHS No Start Date Active pantoprazole 40 mg t ablet,delayed release RxNorm: 516496 1 Tablet(s) PO daily No Start Date Active isosorbide mononitra te ER 30 mg tablet,extended release 24 hr RxNorm: 571105 1 Tablet(s) PO daily No Start Date Active melatonin 3 mg Tab RxNorm: 042597 2 Tablet(s) PO QHS No Start Date 12/13/2017 Inactive Xarelto 20 mg tablet RxNorm: 5554114 1 Tablet(s) PO QPM No Start Date 12/13/2017 Inactive Tylenol 8 Hour 650 m g tablet,extended release RxNorm: 8181144 1 Tablet(s) PO BID No Start Date 07/12/2018 Inactive Calcium 600 + D(3) 6 00 mg (1,500 mg)-400 unit Tab RxNorm: 544111 1 Tablet(s) PO QPM No Start Date 12/13/2017 Inactive prasugrel 10 mg tablet RxNorm: 248716 1 Tablet(s) PO daily No Start Date 07/11/2018 Inactive Fish Oil 360 mg-1,20 0 mg capsule,delayed release RxNorm: 1 Capsule(s) PO daily No Start Date 12/13/2017 Inactive PreserVision AREDS 2 oral RxNorm: 4068042 oral No Start Date 07/11/2018 Inactive Prozac 20 mg capsule RxNorm: 360587 1 Capsule(s) PO daily No Start Date 02/11/2013 Inactive Breo Ellipta inhalation RxNorm: 8464312 inhalation No Start Date 12/13/2017 Inactive fenofibrate nanocrys tallized 145 mg tablet RxNorm: 275827 Tablet(s) PO daily No Start Date 10/31/2016 Inactive Centrum Silver Ultra Women's Tab RxNorm: 1 Tablet(s) PO QHS No Start Date 10/31/2016 Inactive Cartia XT 120 mg cap clifford,extended release RxNorm: 373971 1 Capsule(s) PO QHS No Start Date [...] (3rd IS) 4.90 uIU/mL 06/25/2018 Free T4 Yrs009 FREE T4 1.15 ng/dL 06/25/2018 Free T4 Pcn099 FREE T4 0.52 ng/dL 03/22/2018 Tsh Ord6 [...] 33.4 pg 12/15/2017 Cbc With Differential Ord2 Hamilton% 17.3 % 12/15/2017 Cbc With Differential Ord2 [...] 0.78 K/ul 12/15/2017 Cbc With Differential Ord2 Hamilton ABS# 0.4 K/ul 12/15/2017 Cbc With Differential Ord2 Eos ABS# 0.1 K/ul 12/15/2017 Cbc With Differential Ord2 Baso ABS# 0.0 K/ul 12/15/2017 Free T4 Ojy634 FREE T4 0.34 ng/dL 12/15/2017 Test(s) Not Perfromed [id number] Test(s) Not Performed Test(s) Not Performed. See Below: 12/14/2017 Test(s) Not Perfromed [id number] TEST NAME CBC 12/14/2017 Test(s) Not Perfromed [id number] Rejection Reason No Suitable Specimen Receive d 12/14/2017 Test(s) Not Perfromed [id number] COMMENT Grace notified for redraw 12/14/2017 Test(s) Not Perfromed [id number] Coke Drawer Hand Wale Whitman 12/14/2017 Tsh Ord6 TSH (3rd IS) 48.79 uIU/mL 12/14/2017 Comp Metabolic Adv607 NA 137 mEq/L 12/14/2017 Comp Metabolic Ytx620 K 4.3 mEq/L 12/14/2017 Comp Metabolic Pmn039 CL 101 mEq/L 12/14/2017 Comp Metabolic Oxg165 CO2 29.0 mEq/L 12/14/2017 Comp Metabolic Ijg230 AN ION GAP 11 12/14/2017 Comp Metabolic Iab268 GL UCOSE 81 mg/dL 12/14/2017 Comp Metabolic Ylg411 Cr eat 0.7 mg/dL 12/14/2017 Comp Metabolic Vlr034 eG FR 86 ml/min/1.73m2 12/14 Comp Metabolic Pew392 BUN 14 mg/dL 12/14/2017 Comp Metabolic Yon723 B/ C Ratio 19.7 Ratio 12/14/2017 Comp Metabolic Yxa876 CA LCIUM 9.2 mg/dL 12/14/2017 Comp Metabolic Gsx667 AL K PHOS 112 U/L 12/14/2017 Comp Metabolic Inf302 T(SGOT) 25 U/L 12/14/2017 Comp Metabolic Vuc938 AL T(SGPT) 20 U/L 12/14/2017 Comp Metabolic Yci491 BI LI T 0.8 mg/dL 12/14/2017 Comp Metabolic Srh784 AL BUMIN 4.1 g/dL 12/14/2017 Comp Metabolic Wmo031 TP RO 6.9 g/dL 12/14/2017 Comp Metabolic Twt353 GL OB 2.9 g/dL 12/14/2017 Comp Metabolic Qsk269 A/ G Ratio 1.4 Ratio 12/14/2017 Comp Metabolic Nfj652 Os mo 273 mOsmo 12/14/2017 LIPID GRP HDL TE ST 70 MG/DL 01/23/2014 LIPID GRP TRIG 134 MG/DL 01/23/2014 LIPID GRP 1032515 TEST L DL 117 MG/DL 01/23/2014 LIPID GRP CHOL 214 MG/DL 01/23/2014 LIPID GRP RCHOL/ HDL 3.06 RATIO 01/23/2014 LIPID GRP 8875337 NON-HD L CH 144 MG/DL 01/23/2014 TSH 4023269 TSH 1.784 uIU/ML 01/23/2014 CBC 8955630 WBC 4.7 10e9/L 01/23/2014 CBC 8800917 RBC 4.10 10e12/L 01/23/2014 CBC 0024415 HGB 13.3 g/dL 01/23/2014 CBC 5791623 HCT DET 39.2 % 01/23/2014 CBC 3643265 MCV 95.6 fL 01/23/2014 CBC 9375347 MCH 32.4 pg 01/23/2014 CBC 8558181 MCHC 33.9 g/dL 01/23/2014 CBC 2796671 PLT 232 10e9/L 01/23/2014 CBC 9748859 MPV 10.9 fL 01/23/2014 CBC 8968397 DORON % 57.4 % 01/23/2014 CBC 5637510 LY % 28.0 % 01/23/2014 CBC 8159826 MON % 12.9 % 01/23/2014 CBC 9677549 EOS % 1.3 % 01/23/2014 CBC 8747869 BASO % 0.4 % 01/23/2014 CBC 3249109 RDW 12.1 % 01/23/2014 CBC 2096896 ABS DORON 2.70 10e9/L 01/23/2014 CBC 9222033 ABS LYMPH 1.32 10e9/L 01/23/2014 CBC 8191424 ABS MONO 0.61 10e9/L 01/23/2014 CBC 0497642 ABS EOS 0.06 10e9/L 01/23/2014 CBC 4906786 ABS BASO 0.02 10e9/L 01/23/2014 CBC 2124808 RDW-SD 41.2 fL 01/23/2014 CHEM 14 8268699 AST 18 U/L 01/23/2014 CHEM 14 5543247 ALT 13 IU/L 01/23/2014 CHEM 14 0417018 BUN 16 MG/DL 01/23/2014 CHEM 14 8651569 ALBUMIN 4.2 GM/DL 01/23/2014 CHEM 14 9370611 CHLORIDE 105 MMOL/L 01/23/2014 CHEM 14 8838914 BILI TOT 0.7 MG/DL 01/23/2014 CHEM 14 7615420 ALK PHOS 61 U/L 01/23/2014 CHEM 14 5669171 SODIUM 138 MMOL/L 01/23/2014 CHEM 14 9381351 CREATINI NE 0.65 MG/DL 01/23/2014 CHEM 14 8491304 CALCIUM 9.5 MG/DL 01/23/2014 CHEM 14 2228764 POTASSIUM 4.4 MMOL/L 01/23/2014 CHEM 14 3398208 PROT TOT 6.8 GM/DL 01/23/2014 CHEM 14 6405175 GLUCOSE 93 MG/DL 01/23/2014 CHEM 14 3659241 BICARB 28 MMOL/L 01/23/2014 CHEM 14 5638310 ANION GAP 5 MEQ/L 01/23/2014 GFR CALC 2800708 GFR AA >60 ML/MIN 01/23/2014 GFR CALC 4082274 GFR NON -AA >60 ML/MIN 01/23/2014 URIC ACID 9904292 URIC A KYLE 5.7 MG/DL 10/13/2011 CHEM 14 1704525 AST 19 U/L 10/13/2011 CHEM 14 7726984 ALT 16 U/L 10/13/2011 CHEM 14 5942398 BUN 21 MG/DL 10/13/2011 CHEM 14 0887215 ALBUMIN 4.2 GM/DL 10/13/2011 CHEM 14 1407559 CHLORIDE 103 MMOL/L 10/13/2011 CHEM 14 4582407 BILI TOT 0.6 MG/DL 10/13/2011 CHEM 14 6865104 ALK PHOS 71 U/L 10/13/2011 CHEM 14 9258560 SODIUM 141 MMOL/L 10/13/2011 CHEM 14 4418446 CREATINI NE 0.65 MG/DL 10/13/2011 CHEM 14 5584731 CALCIUM 9.3 MG/DL 10/13/2011 CHEM 14 0317778 POTASSIUM 4.2 MMOL/L 10/13/2011 CHEM 14 3208128 PROT TOT 6.8 GM/DL 10/13/2011 CHEM 14 9315362 GLUCOSE 69 MG/DL 10/13/2011 CHEM 14 9985804 BICARB 27 MMOL/L 10/13/2011 CHEM 14 4059188 ANION GAP 11 MMOL/L 10/13/2011 CBC 4101462 WBC 6.1 10e9/L 10/13/2011 CBC 3631963 RBC 4.11 10e12/L 10/13/2011 CBC 9020901 HGB 13.3 g/dL 10/13/2011 CBC 0979786 HCT DET 39.6 % 10/13/2011 CBC 3032019 MCV 96.4 fL 10/13/2011 CBC 0520275 MCH 32.4 pg 10/13/2011 CBC 2544127 MCHC 33.6 g/dL 10/13/2011 CBC 1326615 PLT 238 10e9/L 10/13/2011 CBC 9008216 MPV 11.7 fL 10/13/2011 CBC 9808161 DORON % 50.2 % 10/13/2011 CBC 2479503 LY % 35.6 % 10/13/2011 CBC 5550235 MON % 12.7 % 10/13/2011 CBC 7288942 EOS % 1.2 % 10/13/2011 CBC 9512624 BASO % 0.3 % 10/13/2011 CBC 6441164 RDW 12.3 % 10/13/2011 CBC 1367648 ABS DORON 3.06 10e9/L 10/13/2011 CBC 2001006 ABS LYMPH 2.17 10e9/L 10/13/2011 CBC 4705228 ABS MONO 0.77 10e9/L 10/13/2011 CBC 0912735 ABS EOS 0.07 10e9/L 10/13/2011 CBC 9749603 ABS BASO 0.02 10e9/L 10/13/2011 CBC 8241260 RDW-SD 42.3 fL 10/13/2011 GFR CALC 4533022 GFR AA >60 ML/MIN 10/13/2011 GFR CALC 6149088 GFR NON -AA >60 ML/MIN 10/13/2011 ESR 6178430 ESR 14 MM/HR 10/13/2011 Review of Systems [...] SY CPT-4: G8553 01/24/2012 ROUTINE VENIPUNCTURE CPT-4: 36437 10/13/2011 Vital Signs Date Vital 07/12/2018 Blood Pressure 1: 126/68 Code: 8480-6 BMI: 28.4 Code: 86936-3 Heart Rate 1: 71 bpm Height: 5' SpO2: 97% Weight: 148 lbs 12/14/2017 Blood Pressure 1: 138/80 Code: 8480-6 BMI: 28.8 Code: 37753-4 Heart Rate 1: 73 bpm Height: 5' SpO2: 98% Weight: 150 lbs 12/06/2016 Blood Pressure 1: 146/82 Code: 8480-6 BMI: 26.8 Code: 31104-8 Heart Rate 1: 58 bpm Height: 5' [...] 1: 118/74 Code: 8480-6 BMI: 25.7 Code: 81968-8 Heart Rate 1: 64 bpm Height: 5' SpO2: 98% Weight: 134 lbs 10/02/2014 Blood Pressure 1: 136/88 Code: 8480-6 BMI: 25.9 Code: 31404-3 Heart Rate 1: 68 bpm Height: 5' SpO2: 98% Weight: 135 lbs 01/22/2014 Blood Pressure 1: 122/64 Code: 8480-6 BMI: 25.7 Code: 76005-6 Heart Rate 1: 72 bpm Height: 5' Weight: 134 lbs 02/07/2013 Blood Pressure 1: 140/80 Code: 8480-6 BMI: 23.6 Code: 00810-1 Height: 5' Weight: 123 lbs 02/16/2012 Blood Pressure 1: 102/68 Code: 8480-6 Heart Rate 1: 68 bpm Respiratory Rate: 18 bpm Weight: 131 lbs 01/24/2012 Blood Pressure 1: 120/72 Code: 8480-6 Heart Rate 1: 72 bpm Respiratory Rate: 16 bpm Weight: 133 lbs 10/31/2011 Blood Pressure 1: 136/84 Code: 8480-6 BMI: 23.2 Code: 09581-3 Heart Rate 1: 74 bpm Height: 5'2" Respiratory Rate: 16 bpm Weight: 127 lbs 10/13/2011 Blood Pressure 1: 138/84 Code: 8480-6 BMI: 23.2 Code: 69314-2 Heart Rate 1: 80 bpm Height: 5'2" [...] activity 12/06/2016 cardioversion cough Location in the [facility] 11/08/2016 None cough Quality acute [...] 11/08/2016 None Hospital Follow Up _ e [facility] 11/08/2016 None Hospital Follow Up Quality acute illness 11/08/2016 None Hospital Follow Up Pertinent Findings Other: cough 11/08/2016 None Hospital Follow Up _ inf ection 11/01/2016 None Hospital Follow Up _ e [facility] 11/01/2016 None Hospital Follow Up Quality acute illness 11/01/2016 None Hospital Follow Up Pertinent Findings Other: cough 11/01/2016 None cough Location in the [facility] 11/01/2016 None cough Quality acute 11/01/2016 [...] Quality blee ding 02/07/2013 None hemorrhoids 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 P ATIENT, LEVEL III Diagnosis: Low back pain[ICD10: M54.5] [facility] CPT- 4: 03821 07/12/2018 ([id number]) 64223 EST. P ATIENT, LEVEL IV Diagnosis: Paroxysmal atrial fibrillation[ICD10: I48.0] Diagnosis: Abnormal weight gain[ICD10: R63.5] Diagnosis: Irritable bowel syndrome with diarrhea[ICD10: K58.0] [facility] CPT-4: 92126 12/14/2017 ([id number]) 20125 EST. P ATIENT, LEVEL III Diagnosis: Paroxysmal atrial fibrillation[ICD10: I48.0] [facility] CPT-4: 27097 12/06/2016 ([id number]) 42253 EST. P ATIENT, LEVEL IV Diagnosis: Paroxysmal atrial fibrillation[ICD10: I48.0] Diagnosis: Pneumonia, unspecified organism[ICD10: J18.9] Jennifer Walker MD, [facility] CPT-4: 61299 11/08/2016 ([id number]) 78373 EST. P ATIENT, LEVEL III Diagnosis: Cough[ICD10: R05] Diagnosis: Pneumonia, unspecified organism[ICD10: J18.9] Jennifer Walker MD, [facility] CPT-4: 19098 11/01/2016 ([id number]) 34021 EST. P ATIENT, LEVEL III Diagnosis: Generalized anxiety disorder[ICD10: F41.1] Jennifer Walker MD, [facility] CPT-4: 71472 11/05/2015 ([id number]) 22207 EST. P ATIENT, LEVEL III Diagnosis: Rectal bleeding[ICD9: 569.3] Jennifer Walker MD, [facility] CPT- 4: 49491 10/02/2014 ([id number]) 72066 EST. P ATIENT, LEVEL III Diagnosis: Anxiety, generalized[ICD9: 300.02] Diagnosis: Depression[ICD9: 311] Kim Walker MD, [facility] CPT-4: 87604 01/22/2014 ([id number]) 24353 EST. P ATIENT, LEVEL III Diagnosis: Bloody feces[ICD9: 578.1] Kim Walker MD, [facility] CPT-4: 08105 02/07/2013 ([id number]) 05140 EST. P ATIENT, LEVEL III Diagnosis: OSTEOARTH NOS-UNSPEC[ICD9: 715.90] Diagnosis: MUSCLE/LIGAMENT DIS NEC[ICD9: 728.89] Kim Walker MD, [facility] CPT-4: 27736 02/16/2012 ([id number]) 16735 EST. P ATIENT, LEVEL III Diagnosis: Iliotibial band syndrome[ICD9: 728.89] Diagnosis: OSTEOARTH NOS-UNSPEC[ICD9: 715.90] Diagnosis: PAIN IN LIMB[ICD9: 729.5] [facility] CPT-4: 31193 01/24/2012 [id number]) 47801 EST. P ATIENT, LEVEL IV Diagnosis: OSTEOARTH NOS-UNSPEC[ICD9: 715.90] Diagnosis: ROUTINE GYNE EXAM[ICD9: V72.31] [facility] CPT-4: 88229 10/31/2011 OFFICE VISIT, NEW - LEVEL 4 Diagnosis: Osteoarthritis[ICD9: 715.90] Diagnosis: INSOMNIA NOS[ICD9: 780.52] Diagnosis: PAIN IN LIMB[ICD9: 729.5] [facility] CPT-4: 24908 10/13/2011 Plan of Care Planned Activity Notes C odes Status Date Visit Plan: Low back pain- patient' s pain is actually improved -recommend MRI -refer to Dr Crouch if needed- okay to use tylenol for pain -also discussed PT if indicated-patient verbalized understanding of plan. 07/12/2018 Patient Education: Patient Medication Summary Completed 07/12/2018 Patient Education: Back Pain Completed 07/12/2018 Care Plan: MRI LUMBAR SPINE W/O DYE LOINC : 54002-3 Pending 07/12/2018 Patient Education: Patient Medication Summary [...] including TSH 12/14/2017 Appointment: [phone] (15 min) Moderate 12/14/2017 Patient Education: Patient Medication Summary Completed 12/14/2017 Care Plan: Cbc With Differential Pending 12/14/2017 Visit Plan: Afib-converted to NSR b y Dr Solorzano-on xarelto- instructed patient to report if they start to feel as if their heart rate is becoming uncontrolled or other symptoms develop. Patient verbalized understmushtaq iverson. 12/06/2016 Appointment: Jennifer Vera WPtel: [phone] (15 min) Moderate 12/06/2016 Patient Education: Patient Medication Summary Completed 12/06/2016 Visit Plan: Afib-ordered EKG to con firm-increase cartia for heart rate control and start eliquis 5mg twice daily-follow up with Dr Jeanine Ying-finished abx-no further treatment indicated 11/08/2016 Appointment: Jennifer Vera WPtel: [phone] (30 min) Complex 11/08/2016 Patient Education: Patient Medication Summary Completed 11/08/2016 Visit Plan: Pneumonia-on abx per ur gent-continue current treatment and follow up in 1 week to ensure resolution of symptoms. Call sooner for worsening or new symptoms. Patient verbalized understanding of plan. 11/01/2016 Appointment: Jennifer Vera WPtel: [phone] (15 min) Moderate 11/01/2016 Patient Education: Patient [...] current medications. 11/05/2015 Appointment: Jennifer Vera WPtel: [phone] (15 min) Moderate 11/05/2015 Patient Education: Patient [...] panic attacks 01/22/2014 Appointment: Kim Walker WPtel: [facility] [facility] 01/22/2014 Patient Education: Patient Medication Summary Completed 01/22/2014 Care Plan: COMPLETE CBC AUTOMATED LOINC : 89100-1 Ordered 01/22/2014 Visit Plan: Blood in stool [...] work up. 02/07/2013 Appointment: Kim Walker WPtel: [facility] Follow up 02/07/2013 Patient Education: Patient Medication Summary Completed 02/07/2013 Visit Plan: Arthritis- occasionally uncontrolled symptoms- recommend pt to take antiinflammatory as directed for pain control. Use tylenol for break through pain symptoms.Start mobic daily Leg length discrepency - recommended pt to place: dr gilliland inserts- 2 in the left shoe 02/16/2012 Appointment: Kim Walker WPtel: [facility] Follow up 02/16/2012 Patient Education: Patient [...] for re-eval. 01/24/2012 Appointment: Kim Walker WPtel: [address] [place] [address] Other 01/24/2012 Patient Education: Patient Medication Summary [...] times daily. 10/31/2011 Appointment: Kim Walker WPtel: [address] [place] [address] [facility] 10/31/2011 Patient Education: Patient Medication [...] time insomnia. 10/13/2011 Appointment: Kim Walker WPtel: [address] [place], [place] [phone] [place] New Patient 10/13/2011 Patient Education: Patient [...]
--- OUTSIDE RECORDS SUMMARY | 2019-12-04 07:13 | XMS REPORT | CCD ---
Author Author Linda Walker Organization Kim Walker MD, [facility] Address [address] [place] [address] Phone Care Team Providers Care Utilization Specialist Name Role Phone PP Unavailable CCM Unavailable Summary Purpose Interface Exchange Insurance Providers Payer name Policy type / Coverage type Covered alliance party ID Effective Begin Date Effective End Date RACHEL GBA [id number] 2017 Unknown [employer] [id number] Unknown Family history Mother Diagnosis Age At Onset Breast cancer Unknown Brother Diagnosis Age At Onset Arthritis Unknown Grandson Diagnosis Age At Onset Diabetes Unknown Social History Social History Element Codes Description Effective Dates Tobacco history SNOMED CT: 6336000 Former smoker quit 03/201301/22/2014 Employment Unknown Retir [...] Codes Condition Status Onset Date Resolved Date Abnormal results of thyroid function studies ICD-9: [...] Condition Codes Effectiv e Dates Condition Status Abnormal results of thyroid function studies ICD-9: [...] Fill Instructions Prozac 40 mg capsule RxNorm: 768140 TAKE ONE CAPSULE BY MOUTH ONCE DAILY 06/08/2018 No Stop Date Active Xanax 0.25 mg tablet RxNorm: 700522 TAKE 1/2 TO 1 (ONE-HALF TO ONE) TABLET B Y MOUTH 4 TIMES DAILY NEEDED 05/18/2018 No Stop Date Active Synthroid 75 mcg tablet RxNorm: 175754 1 Tablet(s) PO daily 03/29/2018 09/24/2018 Active will call for refill when ready Xanax 0.25 mg tablet RxNorm: 800063 1/2 - 1 Tablet(s) PO QID as needed anxie ty attack 01/24/2018 05/18/2018 Inactive Synthroid 25 mcg tablet RxNorm: 511262 1 Tablet(s) PO daily 12/15/2017 03/28/2018 Inactive take on an empty stomach by itself Flagyl 500 mg tablet RxNorm: 680967 1 Tablet(s) PO TID 12/15/2017 12/14/2017 Inactive Flagyl 500 mg tablet RxNorm: 551550 1 Tablet(s) PO TID 12/15/2017 12/24/2017 Inactive Synthroid 25 mcg tablet RxNorm: 598179 1 Tablet(s) PO daily 12/15/2017 12/14/2017 Inactive Fish Oil 360 mg-1,20 0 mg capsule,delayed release RxNorm: 1 Capsule(s) PO BID 12/14/2017 No Stop Date Active Xifaxan 550 mg tablet RxNorm: 667756 1 Tablet(s) PO TID 12/14/2017 12/27/2017 Inactive Xanax 0.25 mg tablet RxNorm: 302765 1/2 - 1 Tablet(s) PO QID as needed anxie ty attack 12/01/2017 12/07/2017 Inactive Xanax 0.25 mg tablet RxNorm: 094636 1/2 - 1 Tablet(s) PO QID as needed anxie ty attack 08/22/2017 08/28/2017 Inactive Cartia XT 180 mg cap clifford,extended release RxNorm: 367458 Capsule(s) TAKE ONE C APSULE BY MOUTH ONCE DAILY AT BEDTIME 08/04/2017 07/29/2018 Active Prozac 40 mg capsule RxNorm: 273442 Capsule(s) TAKE ONE CAPSULE BY MOUTH ONC E DAILY 06/08/2017 06/07/2018 Inactive Prozac 40 mg capsule RxNorm: 881949 TAKE ONE CAPSULE BY MOUTH ONCE DAILY 05/30/2017 06/07/2017 In active Cartia XT 180 mg cap clifford,extended release RxNorm: 167373 TAKE ONE CAPSULE BY M OUTH ONCE DAILY AT BEDTIME 05/08/2017 08/03/2017 Inactive Prozac 40 mg capsule RxNorm: 696737 TAKE ONE CAPSULE BY MOUTH ONCE DAILY 02/03/2017 05/29/2017 In active Eliquis 5 mg tablet RxNorm: 3266867 1 Tablet(s) PO BID 11/09/2016 12/05/2016 Inactive Eliquis 5 mg tablet RxNorm: 2149942 1 Tablet(s) PO BID 11/09/2016 11/08/2016 Inactive Cartia XT 180 mg cap clifford,extended release RxNorm: 843222 1 Capsule(s) PO QHS 11/08/2016 05/06/2017 In active Prozac 40 mg capsule RxNorm: 081642 TAKE ONE CAPSULE BY MOUTH ONCE DAILY 11/07/2016 02/02/2017 In active Phenergan with Codei ne Syrup RxNorm: 2.5 Milliliter(s) PO QHS as needed 10/28/2016 No Stop Date Active levofloxacin 500 mg tablet RxNorm: 930452 1 Tablet(s) PO daily 10/28/2016 11/06/2016 Inactive Prozac 40 mg capsule RxNorm: 400523 TAKE ONE CAPSULE BY MOUTH ONCE DAILY 08/01/2016 10/29/2016 In active Prozac 40 mg capsule RxNorm: 687708 1 Capsule(s) PO daily 11/05/2015 05/02/2016 Inactive [SAVINGS FOR UNINSURED PATIENTS -- BIN:0 68077, PCN: ASPROD1, Group: [id number], ID# [id number], Process claim through [employer], for questions: . THIS IS NOT INSURANCE.] Xanax 0.25 mg tablet RxNorm: 676601 1/2 - 1 Tablet(s) PO QID as needed anxie ty attack 11/02/2015 01/29/2016 Inactive Prozac 40 mg capsule RxNorm: 984503 Capsule(s) TAKE ONE CAPSULE BY MOUTH ONC E DAILY 08/12/2015 08/11/2015 Inactive NEEDS APPT Prozac 40 mg capsule RxNorm: 046813 TAKE ONE CAPSULE BY MOUTH ONCE DAILY 08/12/2015 07/31/2016 In active hydrocortisone aceta te 25 mg rectal suppository RxNorm: 4083127 1 Suppository RTL QH S 10/02/2014 No Stop Date Active daily HS x 1 week, then twice weekly the n as needed Prozac 40 mg capsule RxNorm: 982144 TAKE ONE CAPSULE BY MOUTH ONCE DAILY 07/31/2014 01/26/2015 In active Prozac 40 mg capsule RxNorm: 052690 1 Capsule(s) PO daily 07/30/2014 02/24/2015 Inactive [SAVINGS FOR NON-COVERED DRUGS -- BIN:00 3585, PCN: ASPROD1, Group: XXXXX, ID# [id number], Questions: . THIS IS NOT INSURANCE.] Xanax 0.25 mg tablet RxNorm: 392524 1/2 - 1 Tablet(s) PO QID as needed anxie ty attack 01/22/2014 03/22/2014 Inactive Prozac 40 mg capsule RxNorm: 544635 1 Capsule(s) PO daily 01/22/2014 07/20/2014 Inactive [SAVINGS FOR UNINSURED PATIENTS -- BIN:0 29740, PCN: ASPROD1, Group: [id number], ID# [id number], Process claim through [employer], for questions: . THIS IS NOT INSURANCE.] Prozac 20 mg capsule RxNorm: 274052 1 Capsule(s) PO daily 08/08/2013 01/21/2014 Inactive Prozac 20 mg capsule RxNorm: 931761 1 Capsule(s) PO daily 07/19/2013 08/07/2013 Inactive Prozac 20 mg capsule RxNorm: 883644 1 Capsule(s) PO daily 02/12/2013 07/18/2013 Inactive Influenza Virus Vacc ine 0.5 mL RxNorm: IM 02/16/2012 02/16/2012 Inactive meloxicam 7.5 mg tablet RxNorm: 162636 1 Tablet(s) PO BID ONE PILL IN MORNING, IF PAIN IS UNCONTROLLED, MAY TAKE ONE EXTRA PILL IN THe PM do not take with ibuprofen or aleve 01/24/2012 02/15/2012 Inactive Aspirin Low Dose 81 mg tablet,delayed release RxNorm: 022279 1 Tablet(s) PO daily No Start Date Active Tylenol 8 Hour 650 m g tablet,extended release RxNorm: 1989152 1 Tablet(s) PO BID No Start Date Active Repatha SureClick 14 0 mg/mL subcutaneous pen injector RxNorm: 0354730 1 Milliliter(s) SQ Q2 weeks No Start Date Active amiodarone 200 mg ta blet RxNorm: 803262 1/2 Tablet(s) PO daily No Start Date Active prasugrel 10 mg tablet RxNorm: 051351 1 Tablet(s) PO daily No Start Date Active PreserVision AREDS 2 oral RxNorm: 9041049 oral No Start Date Active melatonin 10 mg tablet RxNorm: 0703082 1 Tablet(s) PO QHS No Start Date Active pantoprazole 40 mg t ablet,delayed release RxNorm: 381271 1 Tablet(s) PO daily No Start Date Active isosorbide mononitra te ER 30 mg tablet,extended release 24 hr RxNorm: 016695 1 Tablet(s) PO daily No Start Date Active melatonin 3 mg Tab RxNorm: 278482 2 Tablet(s) PO QHS No Start Date 12/13/2017 Inactive Xarelto 20 mg tablet RxNorm: 4290879 1 Tablet(s) PO QPM No Start Date 12/13/2017 Inactive Calcium 600 + D(3) 6 00 mg (1,500 mg)-400 unit Tab RxNorm: 702028 1 Tablet(s) PO QPM No Start Date 12/13/2017 Inactive Fish Oil 360 mg-1,20 0 mg capsule,delayed release RxNorm: 1 Capsule(s) PO daily No Start Date 12/13/2017 Inactive Prozac 20 mg capsule RxNorm: 933546 1 Capsule(s) PO daily No Start Date 02/11/2013 Inactive Breo Ellipta inhalation RxNorm: 7511632 inhalation No Start Date 12/13/2017 Inactive fenofibrate nanocrys tallized 145 mg tablet RxNorm: 938015 Tablet(s) PO daily No Start Date 10/31/2016 Inactive Centrum Silver Ultra Women's Tab RxNorm: 1 Tablet(s) PO QHS No Start Date 10/31/2016 Inactive Cartia XT 120 mg cap clifford,extended release RxNorm: 101005 1 Capsule(s) PO QHS No Start Date [...] completed Assessments Condition Codes Effectiv e Dates Abnormal results of thyroid function studies ICD-10: [...] Visit Reason For Visit Effective Dates Notes arrhythmia 12/14/2017 hypertension 12/06/2016 cough 11/08/2016 Urgent Care = pneumonia cough 11/01/2016 Urgent Care = pneumonia anxiety 11/05/2015 hemorrhoids 10/02/2014 depression 01/22/2014 hemorrhoids 02/07/2013 hip pain 02/16/2012 --Im proved hip pain 01/24/2012 well woman exam (65+ years) 10/31/2011 foot pain 10/13/2011 Results Observation Observation Code Item Item Code Result Date Tsh Ord6 TSH (3rd IS) 4.90 uIU/mL 06/25/2018 Free T4 Giz360 FREE T4 1.15 ng/dL 06/25/2018 Free T4 Bxa112 FREE T4 0.52 ng/dL 03/22/2018 Tsh Ord6 [...] 33.4 pg 12/15/2017 Cbc With Differential Ord2 Fajardo% 17.3 % 12/15/2017 Cbc With Differential Ord2 [...] 0.78 K/ul 12/15/2017 Cbc With Differential Ord2 Fajardo ABS# 0.4 K/ul 12/15/2017 Cbc With Differential Ord2 Eos ABS# 0.1 K/ul 12/15/2017 Cbc With Differential Ord2 Baso ABS# 0.0 K/ul 12/15/2017 Free T4 Jmy260 FREE T4 0.34 ng/dL 12/15/2017 Test(s) Not Perfromed [id number] Test(s) Not Performed Test(s) Not Performed. See Below: 12/14/2017 Test(s) Not Perfromed [id number] TEST NAME CBC 12/14/2017 Test(s) Not Perfromed [id number] Rejection Reason No Suitable Specimen Receive d 12/14/2017 Test(s) Not Perfromed [id number] COMMENT Grace notified for redraw 12/14/2017 Test(s) Not Perfromed [id number] Logistics Intern Wale Whitman 12/14/2017 Tsh Ord6 TSH (3rd IS) 48.79 uIU/mL 12/14/2017 Comp Metabolic Nfg609 NA 137 mEq/L 12/14/2017 Comp Metabolic Wwb891 K 4.3 mEq/L 12/14/2017 Comp Metabolic Yca816 CL 101 mEq/L 12/14/2017 Comp Metabolic Bki099 CO2 29.0 mEq/L 12/14/2017 Comp Metabolic Rjr325 AN ION GAP 11 12/14/2017 Comp Metabolic Bgr569 GL UCOSE 81 mg/dL 12/14/2017 Comp Metabolic Eap497 Cr eat 0.7 mg/dL 12/14/2017 Comp Metabolic Zbr890 eG FR 86 ml/min/1.73m2 12/14 Comp Metabolic Rii804 BUN 14 mg/dL 12/14/2017 Comp Metabolic Ydi286 B/ C Ratio 19.7 Ratio 12/14/2017 Comp Metabolic Ujh953 CA LCIUM 9.2 mg/dL 12/14/2017 Comp Metabolic Mle354 AL K PHOS 112 U/L 12/14/2017 Comp Metabolic Ioo404 T(SGOT) 25 U/L 12/14/2017 Comp Metabolic Ehi253 AL T(SGPT) 20 U/L 12/14/2017 Comp Metabolic Ubt581 BI LI T 0.8 mg/dL 12/14/2017 Comp Metabolic Wck524 AL BUMIN 4.1 g/dL 12/14/2017 Comp Metabolic Bbe619 TP RO 6.9 g/dL 12/14/2017 Comp Metabolic Gwz845 GL OB 2.9 g/dL 12/14/2017 Comp Metabolic Exx916 A/ G Ratio 1.4 Ratio 12/14/2017 Comp Metabolic Kgq181 Os mo 273 mOsmo 12/14/2017 LIPID GRP HDL TE ST 70 MG/DL 01/23/2014 LIPID GRP TRIG 134 MG/DL 01/23/2014 LIPID GRP TEST L DL 117 MG/DL 01/23/2014 LIPID GRP CHOL 214 MG/DL 01/23/2014 LIPID GRP RCHOL/ HDL 3.06 RATIO 01/23/2014 LIPID GRP [id number] NON-HD L CH 144 MG/DL 01/23/2014 TSH 7173041 TSH 1.784 uIU/ML 01/23/2014 CBC 0464545 WBC 4.7 10e9/L 01/23/2014 CBC 7869777 RBC 4.10 10e12/L 01/23/2014 CBC 8109573 HGB 13.3 g/dL 01/23/2014 CBC 7008805 HCT DET 39.2 % 01/23/2014 CBC 8518679 MCV 95.6 fL 01/23/2014 CBC 3024942 MCH 32.4 pg 01/23/2014 CBC 4433352 MCHC 33.9 g/dL 01/23/2014 CBC 6828644 PLT 232 10e9/L 01/23/2014 CBC 5845442 MPV 10.9 fL 01/23/2014 CBC 1006117 DORON % 57.4 % 01/23/2014 CBC 9762797 LY % 28.0 % 01/23/2014 CBC 3299806 MON % 12.9 % 01/23/2014 CBC 5515628 EOS % 1.3 % 01/23/2014 CBC 0015426 BASO % 0.4 % 01/23/2014 CBC 8113511 RDW 12.1 % 01/23/2014 CBC 5469268 ABS DORON 2.70 10e9/L 01/23/2014 CBC 9564004 ABS LYMPH 1.32 10e9/L 01/23/2014 CBC 0762943 ABS MONO 0.61 10e9/L 01/23/2014 CBC 6846089 ABS EOS 0.06 10e9/L 01/23/2014 CBC 3205418 ABS BASO 0.02 10e9/L 01/23/2014 CBC 6981177 RDW-SD 41.2 fL 01/23/2014 CHEM 14 9659751 AST 18 U/L 01/23/2014 CHEM 14 9722747 ALT 13 IU/L 01/23/2014 CHEM 14 8596767 BUN 16 MG/DL 01/23/2014 CHEM 14 9657545 ALBUMIN 4.2 GM/DL 01/23/2014 CHEM 14 8996389 CHLORIDE 105 MMOL/L 01/23/2014 CHEM 14 7690365 BILI TOT 0.7 MG/DL 01/23/2014 CHEM 14 1449078 ALK PHOS 61 U/L 01/23/2014 CHEM 14 9171341 SODIUM 138 MMOL/L 01/23/2014 CHEM 14 0551622 CREATINI NE 0.65 MG/DL 01/23/2014 CHEM 14 7378077 CALCIUM 9.5 MG/DL 01/23/2014 CHEM 14 1144601 POTASSIUM 4.4 MMOL/L 01/23/2014 CHEM 14 1072743 PROT TOT 6.8 GM/DL 01/23/2014 CHEM 14 0201790 GLUCOSE 93 MG/DL 01/23/2014 CHEM 14 5945877 BICARB 28 MMOL/L 01/23/2014 CHEM 14 0551917 ANION GAP 5 MEQ/L 01/23/2014 GFR CALC 6601203 GFR AA >60 ML/MIN 01/23/2014 GFR CALC 3177891 GFR NON -AA >60 ML/MIN 01/23/2014 URIC ACID 0495772 URIC A KYLE 5.7 MG/DL 10/13/2011 CHEM 14 8828340 AST 19 U/L 10/13/2011 CHEM 14 3241441 ALT 16 U/L 10/13/2011 CHEM 14 7683435 BUN 21 MG/DL 10/13/2011 CHEM 14 7349947 ALBUMIN 4.2 GM/DL 10/13/2011 CHEM 14 7153339 CHLORIDE 103 MMOL/L 10/13/2011 CHEM 14 5914609 BILI TOT 0.6 MG/DL 10/13/2011 CHEM 14 5617298 ALK PHOS 71 U/L 10/13/2011 CHEM 14 0596729 SODIUM 141 MMOL/L 10/13/2011 CHEM 14 20271201 CREATINI NE 0.65 MG/DL 10/13/2011 CHEM 14 7622770 CALCIUM 9.3 MG/DL 10/13/2011 CHEM 14 2396521 POTASSIUM 4.2 MMOL/L 10/13/2011 CHEM 14 4912020 PROT TOT 6.8 GM/DL 10/13/2011 CHEM 14 7036152 GLUCOSE 69 MG/DL 10/13/2011 CHEM 14 2232744 BICARB 27 MMOL/L 10/13/2011 CHEM 14 4302097 ANION GAP 11 MMOL/L 10/13/2011 CBC 1727335 WBC 6.1 10e9/L 10/13/2011 CBC 5650781 RBC 4.11 10e12/L 10/13/2011 CBC 7793605 HGB 13.3 g/dL 10/13/2011 CBC 1373962 HCT DET 39.6 % 10/13/2011 CBC 3323542 MCV 96.4 fL 10/13/2011 CBC 6954027 MCH 32.4 pg 10/13/2011 CBC 3965296 MCHC 33.6 g/dL 10/13/2011 CBC 2886030 PLT 238 10e9/L 10/13/2011 CBC 7449001 MPV 11.7 fL 10/13/2011 CBC 8582491 DORON % 50.2 % 10/13/2011 CBC 3604385 LY % 35.6 % 10/13/2011 CBC 3570402 MON % 12.7 % 10/13/2011 CBC 7466238 EOS % 1.2 % 10/13/2011 CBC 9580095 BASO % 0.3 % 10/13/2011 CBC 1067079 RDW 12.3 % 10/13/2011 CBC 7428709 ABS DORON 3.06 10e9/L 10/13/2011 CBC 0225442 ABS LYMPH 2.17 10e9/L 10/13/2011 CBC 3481503 ABS MONO 0.77 10e9/L 10/13/2011 CBC 7766513 ABS EOS 0.07 10e9/L 10/13/2011 CBC 5558157 ABS BASO 0.02 10e9/L 10/13/2011 CBC 2053131 RDW-SD 42.3 fL 10/13/2011 GFR CALC 3062507 GFR AA >60 ML/MIN 10/13/2011 GFR CALC 5781676 GFR NON -AA >60 ML/MIN 10/13/2011 ESR 5972454 ESR 14 MM/HR 10/13/2011 Review of Systems System Result Effective Dates Constitutional No insomnia 12/14/2017 Constitutional weight gain [...] masses 02/16/2012 None Full Exam - General 1995 Respiratory respiratory effort/rhythm Overall: no retractions 02/16/2012 None Full Exam - General 1994 Respiratory respiratory effort/rhythm Overall: normal rate 02/16/2012 None Full Exam - General 1995 Cardiovascular extremities Overall: no clubbing 02/16/2012 None Full Exam - General 1995 [...] SY CPT-4: G8553 01/24/2012 ROUTINE VENIPUNCTURE CPT-4: 39179 10/13/2011 Vital Signs Date Vital 12/14/2017 Blood Pressure 1: 138/80 Code: 8480-6 BMI: 28.8 Code: 43235-5 Heart Rate 1: 73 bpm Height: 5' SpO2: 98% Weight: 150 lbs 12/06/2016 Blood Pressure 1: 146/82 Code: 8480-6 BMI: 26.8 Code: 02810-0 Heart Rate 1: 58 bpm Height: 5' [...] 1: 118/74 Code: 8480-6 BMI: 25.7 Code: 93347-9 Heart Rate 1: 64 bpm Height: 5' SpO2: 98% Weight: 134 lbs 10/02/2014 Blood Pressure 1: 136/88 Code: 8480-6 BMI: 25.9 Code: 73334-5 Heart Rate 1: 68 bpm Height: 5' SpO2: 98% Weight: 135 lbs 01/22/2014 Blood Pressure 1: 122/64 Code: 8480-6 BMI: 25.7 Code: 47103-6 Heart Rate 1: 72 bpm Height: 5' Weight: 134 lbs 02/07/2013 Blood Pressure 1: 140/80 Code: 8480-6 BMI: 23.6 Code: 10029-7 Height: 5' Weight: 123 lbs 02/16/2012 Blood Pressure 1: 102/68 Code: 8480-6 Heart Rate 1: 68 bpm Respiratory Rate: 18 bpm Weight: 131 lbs 01/24/2012 Blood Pressure 1: 120/72 Code: 8480-6 Heart Rate 1: 72 bpm Respiratory Rate: 16 bpm Weight: 133 lbs 10/31/2011 Blood Pressure 1: 136/84 Code: 8480-6 BMI: 23.2 Code: 52768-5 Heart Rate 1: 74 bpm Height: 5'2" Respiratory Rate: 16 bpm Weight: 127 lbs 10/13/2011 Blood Pressure 1: 138/84 Code: 8480-6 BMI: 23.2 Code: 96712-1 Heart Rate 1: 80 bpm Height: 5'2" Respiratory Rate: 16 bpm Weight: 127 lbs Functional Status No Functional Status data History of Present Illness Symptom Name Status Resu lt Effective Date Notes arrhythmia Alleviating Factors medication 12/14/2017 None arrhythmia [...] activity 12/06/2016 cardioversion cough Location in the [facility] 11/08/2016 None cough Quality acute [...] 11/08/2016 None Hospital Follow Up _ pne [facility] 11/08/2016 None Hospital Follow Up Quality acute illness 11/08/2016 None Hospital Follow Up Pertinent Findings Other: cough 11/08/2016 None Hospital Follow Up _ inf ection 11/01/2016 None Hospital Follow Up _ e [facility] 11/01/2016 None Hospital Follow Up Quality acute illness 11/01/2016 None Hospital Follow Up Pertinent Findings Other: cough 11/01/2016 None cough Location in the [facility] 11/01/2016 None cough Quality acute [...] Quality blee ding 02/07/2013 None hemorrhoids Quality photonics technician holly 02/07/2013 None hemorrhoids Onset and Resolution [...] Encounters Encounter Performer Loca tion Codes Date [id number]) 91047 EST. P ATIENT, LEVEL IV Diagnosis: Paroxysmal atrial fibrillation[ICD10: I48.0] Diagnosis: Abnormal weight gain[ICD10: R63.5] Diagnosis: Irritable bowel syndrome with diarrhea[ICD10: K58.0] Jennifer Walker MD, [facility] CPT-4: 74339 12/14/2017 ([id number]) 76802 EST. P ATIENT, LEVEL III Diagnosis: Paroxysmal atrial fibrillation[ICD10: I48.0] Jennifer Walker MD, [facility] CPT-4: 72098 12/06/[id number]) 51936 EST. P ATIENT, LEVEL IV Diagnosis: Paroxysmal atrial fibrillation[ICD10: I48.0] Diagnosis: Pneumonia, unspecified organism[ICD10: J18.9] Jennifer Walker MD, [facility] CPT-4: 28500 11/08/2016 [id number]) 24687 EST. P ATIENT, LEVEL III Diagnosis: Cough[ICD10: R05] Diagnosis: Pneumonia, unspecified organism[ICD10: J18.9] Jennifer Walker MD, [facility] CPT-4: 26505 11/01/2016 [id number]) 23617 EST. P ATIENT, LEVEL III Diagnosis: Generalized anxiety disorder[ICD10: F41.1] Jennifer Walker MD, [facility] CPT-4: 84017 11/05/2015 ([id number]) 24084 EST. P ATIENT, LEVEL III Diagnosis: Rectal bleeding[ICD9: 569.3] Jennifer Walker MD, [facility] CPT- 4: 21887 10/02/2014 ([id number]) 76153 EST. P ATIENT, LEVEL III Diagnosis: Anxiety, generalized[ICD9: 300.02] Diagnosis: Depression[ICD9: 311] Kim Walker MD, [facility] CPT-4: 27446 01/22/2014 ([id number]) 43288 EST. P ATIENT, LEVEL III Diagnosis: Bloody feces[ICD9: 578.1] Kim Walker MD, [facility] CPT-4: 45974 02/07/2013 ([id number]) 91865 EST. P ATIENT, LEVEL III Diagnosis: OSTEOARTH NOS-UNSPEC[ICD9: 715.90] Diagnosis: MUSCLE/LIGAMENT DIS NEC[ICD9: 728.89] Kim Walker MD, [facility] CPT-4: 20281 02/16/2012 ([id number]) 29338 EST. P ATIENT, LEVEL III Diagnosis: Iliotibial band syndrome[ICD9: 728.89] Diagnosis: OSTEOARTH NOS-UNSPEC[ICD9: 715.90] Diagnosis: PAIN IN LIMB[ICD9: 729.5] Kim Walker MD, [facility] CPT-4: 69456 01/24/2012 ([id number]) 93546 EST. [facility], LEV[facility] IV Diagnosis: OSTEOARTH NOS-UNSPEC[ICD9: 715.90] Diagnosis: ROUTINE GYNE EXAM[ICD9: V72.31] Kim Walker MD, [facility] CPT-4: 69601 10/31/2011 OFFICE VISIT, NEW - LEVEL 4 Diagnosis: Osteoarthritis[ICD9: 715.90] Diagnosis: INSOMNIA NOS[ICD9: 780.52] Diagnosis: PAIN IN LIMB[ICD9: 729.5] Kim Walker MD, [facility] CPT-4: 64444 10/13/2011 Plan of Care Planned Activity Notes C odes Status Date Patient Education: Patient Medication Summary Completed 12/15/2017 [...] including TSH 12/14/2017 Appointment: Jennifer Vera WPtel: [address] [place], [place] [phone] (15 min) Moderate 12/14/2017 Patient Education: Patient Medication Summary Completed 12/14/2017 Care Plan: Cbc With Differential Pending 12/14/2017 Visit Plan: Afib-converted to NSR b y Dr Solorzano-on xarelto- instructed patient to report if they start to feel as if their heart rate is becoming uncontrolled or other symptoms develop. Patient verbalized understan zayra. 12/06/2016 Appointment: Jennifer Vera WPtel: [address] [place], [place] [phone] (15 min) Moderate 12/06/2016 Patient Education: Patient Medication Summary Completed 12/06/2016 Visit Plan: Afib-ordered EKG to con firm-increase cartia for heart rate control and start eliquis 5mg twice daily-follow up with Dr Solorzano Pneumonia-finished abx-no further treatment indicated 11/08/2016 Appointment: Jennifer Vera WPtel: [phone] (30 min) Complex 11/08/2016 Patient Education: Patient Medication Summary Completed 11/08/2016 Visit Plan: Pneumonia-on abx per ur gent-continue current treatment and follow up in 1 week to ensure resolution of symptoms. Call sooner for worsening or new symptoms. Patient verbalized understanding of plan. 11/01/2016 Appointment: Jennifer Vera WPtel: [phone] (15 min) Moderate 11/01/2016 Patient Education: Patient [...] current medications. 11/05/2015 Appointment: Jennifer Vera WPtel: [phone] (15 min) Moderate 11/05/2015 Patient Education: Patient [...] panic attacks 01/22/2014 Appointment: Kim Walker WPtel: [facility] Sick 01/22/2014 Patient Education: Patient Medication Summary Completed 01/22/2014 Care Plan: COMPLETE CBC AUTOMATED LOINC : 77265-6 Ordered 01/22/2014 Visit Plan: Blood in stool [...] work up. 02/07/2013 Appointment: Kim Walker WPtel: [facility] Follow up 02/07/2013 Patient Education: Patient Medication Summary Completed 02/07/2013 Visit Plan: Arthritis- occasionally uncontrolled symptoms- recommend pt to take antiinflammatory as directed for pain control. Use tylenol for break through pain symptoms.Start mobic daily Leg length discrepency - recommended pt to place: dr gilliland inserts- 2 in the left shoe 02/16/2012 Appointment: Kim Walker WPtel: [address] [place], [place] [phone] Follow [facility] 02/16/2012 Patient Education: Patient Medication [...] for re-eval. 01/24/2012 Appointment: Kim Walker WPtel: [address] [place], [place] [phone] Other 01/24/2012 Patient Education: Patient Medication Summary [...] times daily. 10/31/2011 Appointment: Kim Walker WPtel: [facility] [facility] 10/31/2011 Patient Education: Patient Medication [...] time insomnia. 10/13/2011 Appointment: Kim Walker [facility]Ptel[facility] [facility] 10/13/2011 Patient Education: Patient Medication [...]
--- OUTSIDE RECORDS SUMMARY | 2019-12-04 07:14 | XMS REPORT | CCD ---
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 Name Role Phone PP Unavailable CCM Unavailable Summary Purpose Interface Exchange Insurance Providers Payer name Policy type / Coverage type Covered democrat ID Effective Begin Date Effective End Date RACHEL GBA [id number] 2017 Unknown [employer] [id number] Unknown Family history Mother Diagnosis Age At Onset Breast cancer Unknown Brother Diagnosis Age At Onset Arthritis Unknown Grandson Diagnosis Age At Onset Diabetes Unknown Social History Social History Element Codes Description Effective Dates Tobacco history SNOMED CT: 0334683 Former smoker quit 03/201301/22/2014 Employment Unknown Retir [...] Fill Instructions Prozac 40 mg capsule RxNorm: 980779 TAKE ONE CAPSULE BY MOUTH ONCE DAILY 06/08/2018 No Stop Date Active Xanax 0.25 mg tablet RxNorm: 628963 TAKE 1/2 TO 1 (ONE-HALF TO ONE) TABLET B Y MOUTH 4 TIMES DAILY NEEDED 05/18/2018 No Stop Date Active Synthroid 75 mcg tablet RxNorm: 939721 1 Tablet(s) PO daily 03/29/2018 09/24/2018 Active will call for refill when ready Xanax 0.25 mg tablet RxNorm: 912475 1/2 - 1 Tablet(s) PO QID as needed anxie ty attack 01/24/2018 05/18/2018 Inactive Synthroid 25 mcg tablet RxNorm: 097937 1 Tablet(s) PO daily 12/15/2017 03/28/2018 Inactive take on an empty stomach by itself Flagyl 500 mg tablet RxNorm: 495699 1 Tablet(s) PO TID 12/15/2017 12/14/2017 Inactive Flagyl 500 mg tablet RxNorm: 376568 1 Tablet(s) PO TID 12/15/2017 12/24/2017 Inactive Synthroid 25 mcg tablet RxNorm: 793259 1 Tablet(s) PO daily 12/15/2017 12/14/2017 Inactive Fish Oil 360 mg-1,20 0 mg capsule,delayed release RxNorm: 1 Capsule(s) PO BID 12/14/2017 No Stop Date Active Xifaxan 550 mg tablet RxNorm: 041538 1 Tablet(s) PO TID 12/14/2017 12/27/2017 Inactive Xanax 0.25 mg tablet RxNorm: 759440 1/2 - 1 Tablet(s) PO QID as needed anxie ty attack 12/01/2017 12/07/2017 Inactive Xanax 0.25 mg tablet RxNorm: 967791 1/2 - 1 Tablet(s) PO QID as needed anxie ty attack 08/22/2017 08/28/2017 Inactive Cartia XT 180 mg cap clifford,extended release RxNorm: 930524 Capsule(s) TAKE ONE C APSULE BY MOUTH ONCE DAILY AT BEDTIME 08/04/2017 07/29/2018 Active Prozac 40 mg capsule RxNorm: 148480 Capsule(s) TAKE ONE CAPSULE BY MOUTH ONC E DAILY 06/08/2017 06/07/2018 Inactive Prozac 40 mg capsule RxNorm: 506211 TAKE ONE CAPSULE BY MOUTH ONCE DAILY 05/30/2017 06/07/2017 In active Cartia XT 180 mg cap clifford,extended release RxNorm: 647063 TAKE ONE CAPSULE BY M OUTH ONCE DAILY AT BEDTIME 05/08/2017 08/03/2017 Inactive Prozac 40 mg capsule RxNorm: 212582 TAKE ONE CAPSULE BY MOUTH ONCE DAILY 02/03/2017 05/29/2017 In active Eliquis 5 mg tablet RxNorm: 5874089 1 Tablet(s) PO BID 11/09/2016 12/05/2016 Inactive Eliquis 5 mg tablet RxNorm: 1900780 1 Tablet(s) PO BID 11/09/2016 11/08/2016 Inactive Cartia XT 180 mg cap clifford,extended release RxNorm: 093876 1 Capsule(s) PO QHS 11/08/2016 05/06/2017 In active Prozac 40 mg capsule RxNorm: 568647 TAKE ONE CAPSULE BY MOUTH ONCE DAILY 11/07/2016 02/02/2017 In active Phenergan with Codei ne Syrup RxNorm: 2.5 Milliliter(s) PO QHS as needed 10/28/2016 No Stop Date Active levofloxacin 500 mg tablet RxNorm: 824180 1 Tablet(s) PO daily 10/28/2016 11/06/2016 Inactive Prozac 40 mg capsule RxNorm: 377472 TAKE ONE CAPSULE BY MOUTH ONCE DAILY 08/01/2016 10/29/2016 In active Prozac 40 mg capsule RxNorm: 247606 1 Capsule(s) PO daily 11/05/2015 05/02/2016 Inactive [SAVINGS FOR UNINSURED PATIENTS -- BIN:0 37797, PCN: ASPROD1, Group: [id number], ID# [id number], Process claim through [employer], for questions: . THIS IS NOT INSURANCE.] Xanax 0.25 mg tablet RxNorm: 718648 1/2 - 1 Tablet(s) PO QID as needed anxie ty attack 11/02/2015 01/29/2016 Inactive Prozac 40 mg capsule RxNorm: 356147 Capsule(s) TAKE ONE CAPSULE BY MOUTH ONC E DAILY 08/12/2015 08/11/2015 Inactive NEEDS APPT Prozac 40 mg capsule RxNorm: 578045 TAKE ONE CAPSULE BY MOUTH ONCE DAILY 08/12/2015 07/31/2016 In active hydrocortisone aceta te 25 mg rectal suppository RxNorm: 3142121 1 Suppository RTL QH S 10/02/2014 No Stop Date Active daily HS x 1 week, then twice weekly the n as needed Prozac 40 mg capsule RxNorm: 605715 TAKE ONE CAPSULE BY MOUTH ONCE DAILY 07/31/2014 01/26/2015 In active Prozac 40 mg capsule RxNorm: 042235 1 Capsule(s) PO daily 07/30/2014 02/24/2015 Inactive [SAVINGS FOR NON-COVERED DRUGS -- BIN:00 3585, PCN: ASPROD1, Group: XXXXX, ID# [id number], Questions: . THIS IS NOT INSURANCE.] Xanax 0.25 mg tablet RxNorm: 956103 1/2 - 1 Tablet(s) PO QID as needed anxie ty attack 01/22/2014 03/22/2014 Inactive Prozac 40 mg capsule RxNorm: 346228 1 Capsule(s) PO daily 01/22/2014 07/20/2014 Inactive [SAVINGS FOR UNINSURED PATIENTS -- BIN:0 03787, PCN: ASPROD1, Group: [id number], ID# [id number], Process claim through [employer], for questions: . THIS IS NOT INSURANCE.] Prozac 20 mg capsule RxNorm: 894173 1 Capsule(s) PO daily 08/08/2013 01/21/2014 Inactive Prozac 20 mg capsule RxNorm: 614359 1 Capsule(s) PO daily 07/19/2013 08/07/2013 Inactive Prozac 20 mg capsule RxNorm: 574767 1 Capsule(s) PO daily 02/12/2013 07/18/2013 Inactive Influenza Virus Vacc ine 0.5 mL RxNorm: IM 02/16/2012 02/16/2012 Inactive meloxicam 7.5 mg tablet RxNorm: 010461 1 Tablet(s) PO BID ONE PILL IN MORNING, IF PAIN IS UNCONTROLLED, MAY TAKE ONE EXTRA PILL IN THe PM do not take with ibuprofen or aleve 01/24/2012 02/15/2012 Inactive Aspirin Low Dose 81 mg tablet,delayed release RxNorm: 396274 1 Tablet(s) PO daily No Start Date Active Tylenol 8 Hour 650 m g tablet,extended release RxNorm: 8367126 1 Tablet(s) PO BID No Start Date Active Repatha SureClick 14 0 mg/mL subcutaneous pen injector RxNorm: 4719124 1 Milliliter(s) SQ Q2 weeks No Start Date Active amiodarone 200 mg ta blet RxNorm: 761575 1/2 Tablet(s) PO daily No Start Date Active prasugrel 10 mg tablet RxNorm: 592103 1 Tablet(s) PO daily No Start Date Active PreserVision AREDS 2 oral RxNorm: 3413810 oral No Start Date Active melatonin 10 mg tablet RxNorm: 0160546 1 Tablet(s) PO QHS No Start Date Active pantoprazole 40 mg t ablet,delayed release RxNorm: 875677 1 Tablet(s) PO daily No Start Date Active isosorbide mononitra te ER 30 mg tablet,extended release 24 hr RxNorm: 856826 1 Tablet(s) PO daily No Start Date Active melatonin 3 mg Tab RxNorm: 880260 2 Tablet(s) PO QHS No Start Date 12/13/2017 Inactive Xarelto 20 mg tablet RxNorm: 7943750 1 Tablet(s) PO QPM No Start Date 12/13/2017 Inactive Calcium 600 + D(3) 6 00 mg (1,500 mg)-400 unit Tab RxNorm: 600435 1 Tablet(s) PO QPM No Start Date 12/13/2017 Inactive Fish Oil 360 mg-1,20 0 mg capsule,delayed release RxNorm: 1 Capsule(s) PO daily No Start Date 12/13/2017 Inactive Prozac 20 mg capsule RxNorm: 625592 1 Capsule(s) PO daily No Start Date 02/11/2013 Inactive Breo Ellipta inhalation RxNorm: 6218102 inhalation No Start Date 12/13/2017 Inactive fenofibrate nanocrys tallized 145 mg tablet RxNorm: 630592 Tablet(s) PO daily No Start Date 10/31/2016 Inactive Centrum Silver Ultra Women's Tab RxNorm: 1 Tablet(s) PO QHS No Start Date 10/31/2016 Inactive Cartia XT 120 mg cap clifford,extended release RxNorm: 922774 1 Capsule(s) PO QHS No Start Date [...] Item Item Code Result Date Free T4 Ise229 FREE T4 0.52 ng/dL 03/22/2018 Tsh Ord6 [...] 33.4 pg 12/15/2017 Cbc With Differential Ord2 Cottle% 17.3 % 12/15/2017 Cbc With Differential Ord2 [...] 0.78 K/ul 12/15/2017 Cbc With Differential Ord2 Cottle ABS# 0.4 K/ul 12/15/2017 Cbc With Differential Ord2 Eos ABS# 0.1 K/ul 12/15/2017 Cbc With Differential Ord2 Baso ABS# 0.0 K/ul 12/15/2017 Free T4 Bdh022 FREE T4 0.34 ng/dL 12/15/2017 Test(s) Not Perfromed [id number] Test(s) Not Performed Test(s) Not Performed. See Below: 12/14/2017 Test(s) Not Perfromed [id number] TEST NAME CBC 12/14/2017 Test(s) Not Perfromed [id number] Rejection Reason No Suitable Specimen Receive d 12/14/2017 Test(s) Not Perfromed [id number] COMMENT rGace notified for redraw 12/14/2017 Test(s) Not Perfromed LDL2973 Cracker Sprayer Wale Whitman 12/14/2017 Tsh Ord6 TSH (3rd IS) 48.79 uIU/mL 12/14/2017 Comp Metabolic Dhm935 NA 137 mEq/L 12/14/2017 Comp Metabolic Geh815 K 4.3 mEq/L 12/14/2017 Comp Metabolic Wti844 CL 101 mEq/L 12/14/2017 Comp Metabolic Rzj442 CO2 29.0 mEq/L 12/14/2017 Comp Metabolic Pdy417 AN ION GAP 11 12/14/2017 Comp Metabolic Yrb677 GL UCOSE 81 mg/dL 12/14/2017 Comp Metabolic Gch303 Cr eat 0.7 mg/dL 12/14/2017 Comp Metabolic Zjc370 eG FR 86 ml/min/1.73m2 12/14 Comp Metabolic Rwm653 BUN 14 mg/dL 12/14/2017 Comp Metabolic Iry272 B/ C Ratio 19.7 Ratio 12/14/2017 Comp Metabolic Bev835 CA LCIUM 9.2 mg/dL 12/14/2017 Comp Metabolic Aot881 AL K PHOS 112 U/L 12/14/2017 Comp Metabolic Eeo698 T(SGOT) 25 U/L 12/14/2017 Comp Metabolic Uvw060 AL T(SGPT) 20 U/L 12/14/2017 Comp Metabolic Ene572 BI LI T 0.8 mg/dL 12/14/2017 Comp Metabolic Eqy321 AL BUMIN 4.1 g/dL 12/14/2017 Comp Metabolic Pvl066 TP RO 6.9 g/dL 12/14/2017 Comp Metabolic Wqu452 GL OB 2.9 g/dL 12/14/2017 Comp Metabolic Qng399 A/ G Ratio 1.4 Ratio 12/14/2017 Comp Metabolic Ogw992 Os mo 273 mOsmo 12/14/2017 LIPID GRP HDL TE ST 70 MG/DL 01/23/2014 LIPID GRP TRIG 134 MG/DL 01/23/2014 LIPID GRP TEST L DL 117 MG/DL 01/23/2014 LIPID GRP CHOL 214 MG/DL 01/23/2014 LIPID GRP RCHOL/ HDL 3.06 RATIO 01/23/2014 LIPID GRP NON-HD L CH 144 MG/DL 01/23/2014 TSH 6285661 TSH 1.784 uIU/ML 01/23/2014 CBC 8273548 WBC 4.7 10e9/L 01/23/2014 CBC 4066453 RBC 4.10 10e12/L 01/23/2014 CBC 7194393 HGB 13.3 g/dL 01/23/2014 CBC 8403226 HCT DET 39.2 % 01/23/2014 CBC 4434572 MCV 95.6 fL 01/23/2014 CBC 8298188 MCH 32.4 pg 01/23/2014 CBC 4703499 MCHC 33.9 g/dL 01/23/2014 CBC 3710564 PLT 232 10e9/L 01/23/2014 CBC 9747077 MPV 10.9 fL 01/23/2014 CBC 6541891 DORON % 57.4 % 01/23/2014 CBC 1096464 LY % 28.0 % 01/23/2014 CBC 2238687 MON % 12.9 % 01/23/2014 CBC 0698277 EOS % 1.3 % 01/23/2014 CBC 5748143 BASO % 0.4 % 01/23/2014 CBC 9102951 RDW 12.1 % 01/23/2014 CBC 2418766 ABS DORON 2.70 10e9/L 01/23/2014 CBC 9996976 ABS LYMPH 1.32 10e9/L 01/23/2014 CBC 3195505 ABS MONO 0.61 10e9/L 01/23/2014 CBC 5419226 ABS EOS 0.06 10e9/L 01/23/2014 CBC 3246992 ABS BASO 0.02 10e9/L 01/23/2014 CBC 3511782 RDW-SD 41.2 fL 01/23/2014 CHEM 14 0425340 AST 18 U/L 01/23/2014 CHEM 14 5073184 ALT 13 IU/L 01/23/2014 CHEM 14 9000566 BUN 16 MG/DL 01/23/2014 CHEM 14 9950784 ALBUMIN 4.2 GM/DL 01/23/2014 CHEM 14 5568071 CHLORIDE 105 MMOL/L 01/23/2014 CHEM 14 7680550 BILI TOT 0.7 MG/DL 01/23/2014 CHEM 14 8165909 ALK PHOS 61 U/L 01/23/2014 CHEM 14 9659670 SODIUM 138 MMOL/L 01/23/2014 CHEM 14 8792419 CREATINI NE 0.65 MG/DL 01/23/2014 CHEM 14 4069139 CALCIUM 9.5 MG/DL 01/23/2014 CHEM 14 9470308 POTASSIUM 4.4 MMOL/L 01/23/2014 CHEM 14 9787004 PROT TOT 6.8 GM/DL 01/23/2014 CHEM 14 3267533 GLUCOSE 93 MG/DL 01/23/2014 CHEM 14 2592224 BICARB 28 MMOL/L 01/23/2014 CHEM 14 3261713 ANION GAP 5 MEQ/L 01/23/2014 GFR CALC 4458640 GFR AA >60 ML/MIN 01/23/2014 GFR CALC 3802510 GFR NON -AA >60 ML/MIN 01/23/2014 URIC ACID 9515159 URIC A KYLE 5.7 MG/DL 10/13/2011 CHEM 14 7344958 AST 19 U/L 10/13/2011 CHEM 14 9701969 ALT 16 U/L 10/13/2011 CHEM 14 7851388 BUN 21 MG/DL 10/13/2011 CHEM 14 7138455 ALBUMIN 4.2 GM/DL 10/13/2011 CHEM 14 9235194 CHLORIDE 103 MMOL/L 10/13/2011 CHEM 14 5642341 BILI TOT 0.6 MG/DL 10/13/2011 CHEM 14 3626880 ALK PHOS 71 U/L 10/13/2011 CHEM 14 3679245 SODIUM 141 MMOL/L 10/13/2011 CHEM 14 20271201 CREATINI NE 0.65 MG/DL 10/13/2011 CHEM 14 7207808 CALCIUM 9.3 MG/DL 10/13/2011 CHEM 14 5050951 POTASSIUM 4.2 MMOL/L 10/13/2011 CHEM 14 20271201 PROT TOT 6.8 GM/DL 10/13/2011 CHEM 14 7587422 GLUCOSE 69 MG/DL 10/13/2011 CHEM 14 20271201 BICARB 27 MMOL/L 10/13/2011 CHEM 14 2127881 ANION GAP 11 MMOL/L 10/13/2011 CBC 4818293 WBC 6.1 10e9/L 10/13/2011 CBC 1172918 RBC 4.11 10e12/L 10/13/2011 CBC 3529468 HGB 13.3 g/dL 10/13/2011 CBC 5321928 HCT DET 39.6 % 10/13/2011 CBC 9211990 MCV 96.4 fL 10/13/2011 CBC 5674410 MCH 32.4 pg 10/13/2011 CBC 7953988 MCHC 33.6 g/dL 10/13/2011 CBC 6752853 PLT 238 10e9/L 10/13/2011 CBC 0758058 MPV 11.7 fL 10/13/2011 CBC 6919425 DORON % 50.2 % 10/13/2011 CBC 2799642 LY % 35.6 % 10/13/2011 CBC 0299044 MON % 12.7 % 10/13/2011 CBC 1920395 EOS % 1.2 % 10/13/2011 CBC 7956159 BASO % 0.3 % 10/13/2011 CBC 3714141 RDW 12.3 % 10/13/2011 CBC 2170814 ABS DORON 3.06 10e9/L 10/13/2011 CBC 5656255 ABS LYMPH 2.17 10e9/L 10/13/2011 CBC 7971417 ABS MONO 0.77 10e9/L 10/13/2011 CBC 4604552 ABS EOS 0.07 10e9/L 10/13/2011 CBC 4662932 ABS BASO 0.02 10e9/L 10/13/2011 CBC 6082403 RDW-SD 42.3 fL 10/13/2011 GFR CALC 6709949 GFR AA >60 ML/MIN 10/13/2011 GFR CALC 6950582 GFR NON -AA >60 ML/MIN 10/13/2011 ESR 8422911 ESR 14 MM/HR 10/13/2011 Review of Systems [...] Neurologic No memory loss 11/05/2015 Psychiatric anxiety 06/01/2016 Musculoskeletal No joint complaint 11/05/2015 Eyes No [...] retractions 02/16/2012 None Full Exam - General 1995 Respiratory respiratory effort/rhythm Overall: normal rate 02/16/2012 [...] SY CPT-4: G8553 01/24/2012 ROUTINE VENIPUNCTURE CPT-4: 36485 10/13/2011 Vital Signs Date Vital 12/14/2017 Blood Pressure 1: 138/80 Code: 8480-6 BMI: 28.8 Code: 29207-0 Heart Rate 1: 73 bpm Height: 5' SpO2: 98% Weight: 150 lbs 12/06/2016 Blood Pressure 1: 146/82 Code: 8480-6 BMI: 26.8 Code: 50191-5 Heart Rate 1: 58 bpm Height: 5' [...] 1: 118/74 Code: 8480-6 BMI: 25.7 Code: 11859-8 Heart Rate 1: 64 bpm Height: 5' SpO2: 98% Weight: 134 lbs 10/02/2014 Blood Pressure 1: 136/88 Code: 8480-6 BMI: 25.9 Code: 11903-6 Heart Rate 1: 68 bpm Height: 5' SpO2: 98% Weight: 135 lbs 01/22/2014 Blood Pressure 1: 122/64 Code: 8480-6 BMI: 25.7 Code: 98481-2 Heart Rate 1: 72 bpm Height: 5' Weight: 134 lbs 02/07/2013 Blood Pressure 1: 140/80 Code: 8480-6 BMI: 23.6 Code: 18613-0 Height: 5' Weight: 123 lbs 02/16/2012 Blood Pressure 1: 102/68 Code: 8480-6 Heart Rate 1: 68 bpm Respiratory Rate: 18 bpm Weight: 131 lbs 01/24/2012 Blood Pressure 1: 120/72 Code: 8480-6 Heart Rate 1: 72 bpm Respiratory Rate: 16 bpm Weight: 133 lbs 10/31/2011 Blood Pressure 1: 136/84 Code: 8480-6 BMI: 23.2 Code: 13288-1 Heart Rate 1: 74 bpm Height: 5'2" Respiratory Rate: 16 bpm Weight: 127 lbs 10/13/2011 Blood Pressure 1: 138/84 Code: 8480-6 BMI: 23.2 Code: 58513-4 Heart Rate 1: 80 bpm Height: 5'2" [...] Quality blee ding 02/07/2013 None hemorrhoids Quality comfort station attendant holly 02/07/2013 None hemorrhoids Onset and Resolution [...] Encounters Encounter Performer Loca tion Codes Date ([id number]) 51038 EST. P ATIENT, LEVEL IV Diagnosis: Paroxysmal atrial fibrillation[ICD10: I48.0] Diagnosis: Abnormal weight gain[ICD10: R63.5] Diagnosis: Irritable bowel syndrome with diarrhea[ICD10: K58.0] Jennifer Walker MD, [facility] CPT-4: 32863 12/14/2017 ([id number]) 94844 EST. P ATIENT, LEVEL III Diagnosis: Paroxysmal atrial fibrillation[ICD10: I48.0] Jennifer Walker MD, [facility] CPT-4: 09018 12/06/2016 ([id number]) 72362 EST. P ATIENT, LEVEL IV Diagnosis: Paroxysmal atrial fibrillation[ICD10: I48.0] Diagnosis: Pneumonia, unspecified organism[ICD10: J18.9] Jennifer Walker MD, [facility] CPT-4: 36802 11/08/2016 ([id number]) 40443 EST. P ATIENT, LEVEL III Diagnosis: Cough[ICD10: R05] Diagnosis: Pneumonia, unspecified organism[ICD10: J18.9] [facility] CPT-4: 18052 11/01/2016 ([id number]) 43611 EST. P ATIENT, LEVEL III Diagnosis: Generalized anxiety disorder[ICD10: F41.1] Jennifer Walker MD, [facility] CPT-4: 20330 11/05/2015 ([id number]) 40172 EST. P ATIENT, LEVEL III Diagnosis: Rectal bleeding[ICD9: 569.3] Jennifer Walker MD, [facility] CPT- 4: 36904 10/02/2014 ([id number]) 59833 EST. [facility] Diagnosis: Anxiety, generalized[ICD9: 300.02] Diagnosis: Depression[ICD9: 311] Kim Walker MD, [facility] CPT-4: 52938 01/22/2014 ([id number]) 67749 EST. [facility] Diagnosis: Bloody feces[ICD9: 578.1] Kim Walker MD, [facility] CPT-4: 49407 02/07/2013 ([id number]) 56859 EST. [facility] Diagnosis: OSTEOARTH NOS-UNSPEC[ICD9: 715.90] Diagnosis: MUSCLE/LIGAMENT DIS NEC[ICD9: 728.89] Kim Walker MD, [facility] CPT-4: 88551 02/16/2012 ([id number]) 75690 EST. [facility] Diagnosis: Iliotibial band syndrome[ICD9: 728.89] Diagnosis: OSTEOARTH NOS-UNSPEC[ICD9: 715.90] Diagnosis: PAIN IN LIMB[ICD9: 729.5] Kim Walker MD, [facility] CPT-4: 81682 01/24/2012 ([id number]) 56094 EST. [facility] Diagnosis: OSTEOARTH NOS-UNSPEC[ICD9: 715.90] Diagnosis: ROUTINE GYNE EXAM[ICD9: V72.31] Kim Walker MD, [facility] CPT-4: 45883 10/31/2011 OFFICE VISIT, NEW - LEVEL 4 Diagnosis: Osteoarthritis[ICD9: 715.90] Diagnosis: INSOMNIA NOS[ICD9: 780.52] Diagnosis: PAIN IN LIMB[ICD9: 729.5] [facility] CPT-4: 74789 10/13/2011 Plan of Care Planned Activity Notes [...] including TSH 12/14/2017 Appointment: Jennifer Vera WPtel: [facility] [address] (15 min) Moderate 12/14/2017 Patient Education: Patient Medication Summary Completed 12/14/2017 Care Plan: Cbc With Differential Pending 12/14/2017 Visit Plan: Afib-converted to NSR b y Dr Solorzano-on xarelto- instructed patient to report if they start to feel as if their heart rate is becoming uncontrolled or other symptoms develop. Patient verbalized understmushtaq iverson. 12/06/2016 Appointment: Jennifer Vera WPtel: [facility] [address] (15 min) Moderate 12/06/2016 Patient Education: Patient Medication Summary Completed 12/06/2016 Visit Plan: Afib-ordered EKG to con firm-increase cartia for heart rate control and start eliquis 5mg twice daily-follow up with Dr Solorzano Pneumonia-finished abx-no further treatment indicated 11/08/2016 Appointment: Jennifer Vera WPtel: [address] [place], [place] [phone] (30 min) Complex 11/08/2016 Patient Education: Patient Medication Summary Completed 11/08/2016 Visit Plan: Pneumonia-on abx per ur gent-continue current treatment and follow up in 1 week to ensure resolution of symptoms. Call sooner for worsening or new symptoms. Patient verbalized understanding of plan. 11/01/2016 Appointment: Jennifer Vera WPtel: [address] [place], [place] [phone] (15 min) Moderate 11/01/2016 Patient Education: Patient [...] current medications. 11/05/2015 Appointment: Jennifer Vera WPtel: [phone] (15 min) Moderate 11/05/2015 Patient Education: Patient [...] panic attacks 01/22/2014 Appointment: Kim Walker WPtel: [address] [place], [place] [phone] Sick 01/22/2014 Patient Education: Patient Medication Summary Completed 01/22/2014 Care Plan: COMPLETE CBC AUTOMATED LOINC : 29322-8 Ordered 01/22/2014 Visit Plan: Blood in stool [...] work up. 02/07/2013 Appointment: Kim Walker WPtel: [facility] Follow up 02/07/2013 Patient Education: Patient Medication Summary Completed 02/07/2013 Visit Plan: Arthritis- occasionally uncontrolled symptoms- recommend pt to take antiinflammatory as directed for pain control. Use tylenol for break through pain symptoms.Start mobic daily Leg length discrepency - recommended pt to place: dr gilliland inserts- 2 in the left shoe 02/16/2012 Appointment: Kim Walker WPtel: [facility] Follow [...] for re-eval. 01/24/2012 Appointment: Kim Walker WPtel: [facility]8 [address] Other 01/24/2012 Patient Education: Patient Medication [...] daily. 10/31/2011 Appointment: Kim Walker WPtel: [phone] [facility] [facility] 10/31/2011 Patient Education: Patient Medication [...] time insomnia. 10/13/2011 Appointment: Kim Walker WPtel: [facility] [place] New Patient 10/13/2011 Patient Education: Patient Medication [...] and she has been referred to Dr. Rodriguze for further work up. INCREASE CARTIA TO [...]
[2019-12-04] MEDS ORDERED: NS IV 1000 ML 1,000 ML IV SCH ×2 (07:15→08:55)
--- OUTSIDE RECORDS SUMMARY | 2019-12-04 07:15 | XMS REPORT | CCD ---
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 Name Role Phone PP Unavailable CCM Unavailable Summary Purpose Interface Exchange Insurance Providers Payer name Policy type / Coverage type Covered alliance party ID Effective Begin Date Effective End Date RACHEL GBA [id number] 2017 Unknown [employer] and [employer] [id number] Unknown Family history Mother Diagnosis Age At Onset Breast cancer Unknown Brother Diagnosis Age At Onset Arthritis Unknown Grandson Diagnosis Age At Onset Diabetes Unknown Social History Social History Element Codes Description Effective Dates Tobacco history SNOMED CT: 3124249 Former smoker quit 03/201301/22/2014 Employment Unknown Retir [...] Fill Instructions Xanax 0.25 mg tablet RxNorm: 851533 TAKE 1/2 TO 1 (ONE-HALF TO ONE) TABLET B Y MOUTH 4 TIMES DAILY NEEDED 05/18/2018 No Stop Date Active Synthroid 75 mcg tablet RxNorm: 326521 1 Tablet(s) PO daily 03/29/2018 09/24/2018 Active will call for refill when ready Xanax 0.25 mg tablet RxNorm: 056147 1/2 - 1 Tablet(s) PO QID as needed anxie ty attack 01/24/2018 05/18/2018 Inactive Synthroid 25 mcg tablet RxNorm: 200123 1 Tablet(s) PO daily 12/15/2017 03/28/2018 Inactive take on an empty stomach by itself Flagyl 500 mg tablet RxNorm: 073198 1 Tablet(s) PO TID 12/15/2017 12/14/2017 Inactive Flagyl 500 mg tablet RxNorm: 259342 1 Tablet(s) PO TID 12/15/2017 12/24/2017 Inactive Synthroid 25 mcg tablet RxNorm: 701529 1 Tablet(s) PO daily 12/15/2017 12/14/2017 Inactive Fish Oil 360 mg-1,20 0 mg capsule,delayed release RxNorm: 1 Capsule(s) PO BID 12/14/2017 No Stop Date Active Xifaxan 550 mg tablet RxNorm: 080061 1 Tablet(s) PO TID 12/14/2017 12/27/2017 Inactive Xanax 0.25 mg tablet RxNorm: 094239 /2 - 1 Tablet(s) PO QID as needed anxie ty attack 12/01/2017 12/07/2017 Inactive Xanax 0.25 mg tablet RxNorm: 762045 /2 - 1 Tablet(s) PO QID as needed anxie ty attack 08/22/2017 08/28/2017 Inactive Cartia XT 180 mg cap clifford,extended release RxNorm: 520230 Capsule(s) TAKE ONE C APSULE BY MOUTH ONCE DAILY AT BEDTIME 08/04/2017 07/29/2018 Active Prozac 40 mg capsule RxNorm: 461224 Capsule(s) TAKE ONE CAPSULE BY MOUTH ONC E DAILY 06/08/2017 No Stop Date Active Prozac 40 mg capsule RxNorm: 387367 TAKE ONE CAPSULE BY MOUTH ONCE DAILY 05/30/2017 06/07/2017 In active Cartia XT 180 mg cap clifford,extended release RxNorm: 794895 TAKE ONE CAPSULE BY M OUTH ONCE DAILY AT BEDTIME 05/08/2017 08/03/2017 Inactive Prozac 40 mg capsule RxNorm: 561555 TAKE ONE CAPSULE BY MOUTH ONCE DAILY 02/03/2017 05/29/2017 In active Eliquis 5 mg tablet RxNorm: 4217541 1 Tablet(s) PO BID 11/09/2016 12/05/2016 Inactive Eliquis 5 mg tablet RxNorm: 9627831 1 Tablet(s) PO BID 11/09/2016 11/08/2016 Inactive Cartia XT 180 mg cap clifford,extended release RxNorm: 495396 1 Capsule(s) PO QHS 11/08/2016 05/06/2017 In active Prozac 40 mg capsule RxNorm: 283004 TAKE ONE CAPSULE BY MOUTH ONCE DAILY 11/07/2016 02/02/2017 In active Phenergan with Codei ne Syrup RxNorm: 2.5 Milliliter(s) PO QHS as needed 10/28/2016 No Stop Date Active levofloxacin 500 mg tablet RxNorm: 858325 1 Tablet(s) PO daily 10/28/2016 11/06/2016 Inactive Prozac 40 mg capsule RxNorm: 022066 TAKE ONE CAPSULE BY MOUTH ONCE DAILY 08/01/2016 10/29/2016 In active Prozac 40 mg capsule RxNorm: 087446 1 Capsule(s) PO daily 11/05/2015 05/02/2016 Inactive [SAVINGS FOR UNINSURED PATIENTS -- BIN:0 24682, PCN: ASPROD1, Group: [id number], ID# [id number], Process claim through [employer], for questions: . THIS IS NOT INSURANCE.] Xanax 0.25 mg tablet RxNorm: 895293 1/2 - 1 Tablet(s) PO QID as needed anxie ty attack 11/02/2015 01/29/2016 Inactive Prozac 40 mg capsule RxNorm: 226040 Capsule(s) TAKE ONE CAPSULE BY MOUTH ONC E DAILY 08/12/2015 08/11/2015 Inactive NEEDS APPT Prozac 40 mg capsule RxNorm: 627923 TAKE ONE CAPSULE BY MOUTH ONCE DAILY 08/12/2015 07/31/2016 In active hydrocortisone aceta te 25 mg rectal suppository RxNorm: 9170764 1 Suppository RTL QH S 10/02/2014 No Stop Date Active daily HS x 1 week, then twice weekly the n as needed Prozac 40 mg capsule RxNorm: 528988 TAKE ONE CAPSULE BY MOUTH ONCE DAILY 07/31/2014 01/26/2015 In active Prozac 40 mg capsule RxNorm: 830096 1 Capsule(s) PO daily 07/30/2014 02/24/2015 Inactive [SAVINGS FOR NON-COVERED DRUGS -- BIN:00 3585, PCN: ASPROD1, Group: XXXXX, ID# [id number], Questions: . THIS IS NOT INSURANCE.] Xanax 0.25 mg tablet RxNorm: 334695 1/2 - 1 Tablet(s) PO QID as needed anxie ty attack 01/22/2014 03/22/2014 Inactive Prozac 40 mg capsule RxNorm: 161152 1 Capsule(s) PO daily 01/22/2014 07/20/2014 Inactive [SAVINGS FOR UNINSURED PATIENTS -- BIN:0 92978, PCN: ASPROD1, Group: [id number], ID# [id number], Process claim through [employer], for questions: . THIS IS NOT INSURANCE.] Prozac 20 mg capsule RxNorm: 338646 1 Capsule(s) PO daily 08/08/2013 01/21/2014 Inactive Prozac 20 mg capsule RxNorm: 593155 1 Capsule(s) PO daily 07/19/2013 08/07/2013 Inactive Prozac 20 mg capsule RxNorm: 344540 1 Capsule(s) PO daily 02/12/2013 07/18/2013 Inactive Influenza Virus Vacc ine 0.5 mL RxNorm: IM 02/16/2012 02/16/2012 Inactive meloxicam 7.5 mg tablet RxNorm: 977347 1 Tablet(s) PO BID ONE PILL IN MORNING, IF PAIN IS UNCONTROLLED, MAY TAKE ONE EXTRA PILL IN THe PM do not take with ibuprofen or aleve 01/24/2012 02/15/2012 Inactive Aspirin Low Dose 81 mg tablet,delayed release RxNorm: 403354 1 Tablet(s) PO daily No Start Date Active Tylenol 8 Hour 650 m g tablet,extended release RxNorm: 1283824 1 Tablet(s) PO BID No Start Date Active Repatha SureClick 14 0 mg/mL subcutaneous pen injector RxNorm: 4674551 1 Milliliter(s) SQ Q2 weeks No Start Date Active amiodarone 200 mg ta blet RxNorm: 458944 1/2 Tablet(s) PO daily No Start Date Active prasugrel 10 mg tablet RxNorm: 126917 1 Tablet(s) PO daily No Start Date Active PreserVision AREDS 2 oral RxNorm: 9841362 oral No Start Date Active melatonin 10 mg tablet RxNorm: 4025336 1 Tablet(s) PO QHS No Start Date Active pantoprazole 40 mg t ablet,delayed release RxNorm: 051241 1 Tablet(s) PO daily No Start Date Active isosorbide mononitra te ER 30 mg tablet,extended release 24 hr RxNorm: 562954 1 Tablet(s) PO daily No Start Date Active melatonin 3 mg Tab RxNorm: 920938 2 Tablet(s) PO QHS No Start Date 12/13/2017 Inactive Xarelto 20 mg tablet RxNorm: 4097409 1 Tablet(s) PO QPM No Start Date 12/13/2017 Inactive Calcium 600 + D(3) 6 00 mg (1,500 mg)-400 unit Tab RxNorm: 846953 1 Tablet(s) PO QPM No Start Date 12/13/2017 Inactive Fish Oil 360 mg-1,20 0 mg capsule,delayed release RxNorm: 1 Capsule(s) PO daily No Start Date 12/13/2017 Inactive Prozac 20 mg capsule RxNorm: 775685 1 Capsule(s) PO daily No Start Date 02/11/2013 Inactive Breo Ellipta inhalation RxNorm: 8694063 inhalation No Start Date 12/13/2017 Inactive fenofibrate nanocrys tallized 145 mg tablet RxNorm: 510230 Tablet(s) PO daily No Start Date 10/31/2016 Inactive Centrum Silver Ultra Women's Tab RxNorm: 1 Tablet(s) PO QHS No Start Date 10/31/2016 Inactive Cartia XT 120 mg cap clifford,extended release RxNorm: 833610 1 Capsule(s) PO QHS No Start Date [...] Item Item Code Result Date Free T4 [id number] FREE T4 0.52 ng/dL 03/22/2018 Tsh Ord6 [...] 33.4 pg 12/15/2017 Cbc With Differential Ord2 Ellis% 17.3 % 12/15/2017 Cbc With Differential Ord2 MCHC 33.2 pg 12/15/2017 Cbc With Differential Ord2 Eos% 3.1 % 12/15/2017 Cbc With Differential Ord2 Baso% 0.8 % 12/15/2017 Cbc With Differential Ord2 PLT 235 K/ul 12/15/2017 Cbc With Differential Ord2 RDW 13.6 % 12/15/2017 Cbc With Differential Ord2 Neut ABS# 1.23 K/ul 12/15/2017 Cbc With Differential Ord2 Lymph ABS# 0.78 K/ul 12/15/2017 Cbc With Differential Ord2 Ellis ABS# 0.4 K/ul 12/15/2017 Cbc With Differential Ord2 Eos ABS# 0.1 K/ul 12/15/2017 Cbc With Differential Ord2 Baso ABS# 0.0 K/ul 12/15/2017 Free T4 Cdb308 FREE T4 0.34 ng/dL 12/15/2017 Test(s) Not Perfromed [id number] Test(s) Not Performed Test(s) Not Performed. 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 12/14/2017 Tsh Ord6 TSH (3rd IS) 48.79 uIU/mL 12/14/2017 Comp Metabolic Uwy734 NA 137 mEq/L 12/14/2017 Comp Metabolic Uth213 K 4.3 mEq/L 12/14/2017 Comp Metabolic Afz412 CL 101 mEq/L 12/14/2017 Comp Metabolic Byb205 CO2 29.0 mEq/L 12/14/2017 Comp Metabolic Kis624 AN ION GAP 11 12/14/2017 Comp Metabolic Avl932 GL UCOSE 81 mg/dL 12/14/2017 Comp Metabolic Bkx611 Cr eat 0.7 mg/dL 12/14/2017 Comp Metabolic Qsb503 eG FR 86 ml/min/1.73m2 12/14 Comp Metabolic Smx884 BUN 14 mg/dL 12/14/2017 Comp Metabolic Mcj784 B/ C Ratio 19.7 Ratio 12/14/2017 Comp Metabolic Cbi326 CA LCIUM 9.2 mg/dL 12/14/2017 Comp Metabolic Oau285 AL K PHOS 112 U/L 12/14/2017 Comp Metabolic Wch285 T(SGOT) 25 U/L 12/14/2017 Comp Metabolic Ahp953 AL T(SGPT) 20 U/L 12/14/2017 Comp Metabolic Jun514 BI LI T 0.8 mg/dL 12/14/2017 Comp Metabolic Mdm387 AL BUMIN 4.1 g/dL 12/14/2017 Comp Metabolic Uuq344 TP RO 6.9 g/dL 12/14/2017 Comp Metabolic Pzg399 GL OB 2.9 g/dL 12/14/2017 Comp Metabolic Rqu350 A/ G Ratio 1.4 Ratio 12/14/2017 Comp Metabolic Jqe095 Os mo 273 mOsmo 12/14/2017 LIPID GRP HDL TE ST 70 MG/DL 01/23/2014 LIPID GRP TRIG 134 MG/DL 01/23/2014 LIPID GRP TEST L DL 117 MG/DL 01/23/2014 LIPID GRP CHOL 214 MG/DL 01/23/2014 LIPID GRP RCHOL/ HDL 3.06 RATIO 01/23/2014 LIPID GRP NON-HD L CH 144 MG/DL 01/23/2014 TSH 2580690 TSH 1.784 uIU/ML 01/23/2014 CBC 9152830 WBC 4.7 10e9/L 01/23/2014 CBC 0181948 RBC 4.10 10e12/L 01/23/2014 CBC 9689735 HGB 13.3 g/dL 01/23/2014 CBC 5166268 HCT DET 39.2 % 01/23/2014 CBC 4222494 MCV 95.6 fL 01/23/2014 CBC 6369183 MCH 32.4 pg 01/23/2014 CBC 7556129 MCHC 33.9 g/dL 01/23/2014 CBC 2817013 PLT 232 10e9/L 01/23/2014 CBC 9744223 MPV 10.9 fL 01/23/2014 CBC 8334463 DORON % 57.4 % 01/23/2014 CBC 1371700 LY % 28.0 % 01/23/2014 CBC 5703420 MON % 12.9 % 01/23/2014 CBC 3993711 EOS % 1.3 % 01/23/2014 CBC 3792142 BASO % 0.4 % 01/23/2014 CBC 9432051 RDW 12.1 % 01/23/2014 CBC 2770785 ABS DORON 2.70 10e9/L 01/23/2014 CBC 8055033 ABS LYMPH 1.32 10e9/L 01/23/2014 CBC 6054147 ABS MONO 0.61 10e9/L 01/23/2014 CBC 8050918 ABS EOS 0.06 10e9/L 01/23/2014 CBC 1730781 ABS BASO 0.02 10e9/L 01/23/2014 CBC 1542545 RDW-SD 41.2 fL 01/23/2014 CHEM 14 5933931 AST 18 U/L 01/23/2014 CHEM 14 8945461 ALT 13 IU/L 01/23/2014 CHEM 14 8703663 BUN 16 MG/DL 01/23/2014 CHEM 14 5319483 ALBUMIN 4.2 GM/DL 01/23/2014 CHEM 14 3182584 CHLORIDE 105 MMOL/L 01/23/2014 CHEM 14 7947711 BILI TOT 0.7 MG/DL 01/23/2014 CHEM 14 6734950 ALK PHOS 61 U/L 01/23/2014 CHEM 14 6140998 SODIUM 138 MMOL/L 01/23/2014 CHEM 14 4955610 CREATINI NE 0.65 MG/DL 01/23/2014 CHEM 14 0917484 CALCIUM 9.5 MG/DL 01/23/2014 CHEM 14 2599773 POTASSIUM 4.4 MMOL/L 01/23/2014 CHEM 14 5847487 PROT TOT 6.8 GM/DL 01/23/2014 CHEM 14 5564107 GLUCOSE 93 MG/DL 01/23/2014 CHEM 14 2426390 BICARB 28 MMOL/L 01/23/2014 CHEM 14 6270740 ANION GAP 5 MEQ/L 01/23/2014 GFR CALC 9708886 GFR AA >60 ML/MIN 01/23/2014 GFR CALC 7870662 GFR NON -AA >60 ML/MIN 01/23/2014 URIC ACID 1528965 URIC A KYLE 5.7 MG/DL 10/13/2011 CHEM 14 0287692 AST 19 U/L 10/13/2011 CHEM 14 4909331 ALT 16 U/L 10/13/2011 CHEM 14 0245271 BUN 21 MG/DL 10/13/2011 CHEM 14 5315689 ALBUMIN 4.2 GM/DL 10/13/2011 CHEM 14 9171483 CHLORIDE 103 MMOL/L 10/13/2011 CHEM 14 7652176 BILI TOT 0.6 MG/DL 10/13/2011 CHEM 14 1718241 ALK PHOS 71 U/L 10/13/2011 CHEM 14 9859822 SODIUM 141 MMOL/L 10/13/2011 CHEM 14 5939385 CREATINI NE 0.65 MG/DL 10/13/2011 CHEM 14 4845234 CALCIUM 9.3 MG/DL 10/13/2011 CHEM 14 1254122 POTASSIUM 4.2 MMOL/L 10/13/2011 CHEM 14 8887984 PROT TOT 6.8 GM/DL 10/13/2011 CHEM 14 8517765 GLUCOSE 69 MG/DL 10/13/2011 CHEM 14 9770637 BICARB 27 MMOL/L 10/13/2011 CHEM 14 6564897 ANION GAP 11 MMOL/L 10/13/2011 CBC 9911095 WBC 6.1 10e9/L 10/13/2011 CBC 8767336 RBC 4.11 10e12/L 10/13/2011 CBC 4180496 HGB 13.3 g/dL 10/13/2011 CBC 6360294 HCT DET 39.6 % 10/13/2011 CBC 7211403 MCV 96.4 fL 10/13/2011 CBC 6567239 MCH 32.4 pg 10/13/2011 CBC 5028615 MCHC 33.6 g/dL 10/13/2011 CBC 7495075 PLT 238 10e9/L 10/13/2011 CBC 7943572 MPV 11.7 fL 10/13/2011 CBC 4628290 DORON % 50.2 % 10/13/2011 CBC 9801933 LY % 35.6 % 10/13/2011 CBC 9340187 MON % 12.7 % 10/13/2011 CBC 3202524 EOS % 1.2 % 10/13/2011 CBC 8797258 BASO % 0.3 % 10/13/2011 CBC 8205500 RDW 12.3 % 10/13/2011 CBC 2255255 ABS DORON 3.06 10e9/L 10/13/2011 CBC 0534130 ABS LYMPH 2.17 10e9/L 10/13/2011 CBC 2910255 ABS MONO 0.77 10e9/L 10/13/2011 CBC 1993797 ABS EOS 0.07 10e9/L 10/13/2011 CBC 2841468 ABS BASO 0.02 10e9/L 10/13/2011 CBC 9198304 RDW-SD 42.3 fL 10/13/2011 GFR CALC 6668974 GFR AA >60 ML/MIN 10/13/2011 GFR CALC 7811285 GFR NON -AA >60 ML/MIN 10/13/2011 ESR 8516492 ESR 14 MM/HR 10/13/2011 Review of Systems [...] effusion 02/16/2012 None Full Exam - General 1995 [...] SY CPT-4: G8553 01/24/2012 ROUTINE VENIPUNCTURE CPT-4: 72104 10/13/2011 Vital Signs Date Vital 12/14/2017 Blood Pressure 1: 138/80 Code: 8480-6 BMI: 28.8 Code: 49240-9 Heart Rate 1: 73 bpm Height: 5' SpO2: 98% Weight: 150 lbs 12/06/2016 Blood Pressure 1: 146/82 Code: 8480-6 BMI: 26.8 Code: 71096-8 Heart Rate 1: 58 bpm Height: 5' [...] 1: 118/74 Code: 8480-6 BMI: 25.7 Code: 57308-2 Heart Rate 1: 64 bpm Height: 5' SpO2: 98% Weight: 134 lbs 10/02/2014 Blood Pressure 1: 136/88 Code: 8480-6 BMI: 25.9 Code: 97367-3 Heart Rate 1: 68 bpm Height: 5' SpO2: 98% Weight: 135 lbs 01/22/2014 Blood Pressure 1: 122/64 Code: 8480-6 BMI: 25.7 Code: 34711-2 Heart Rate 1: 72 bpm Height: 5' Weight: 134 lbs 02/07/2013 Blood Pressure 1: 140/80 Code: 8480-6 BMI: 23.6 Code: 78007-0 Height: 5' Weight: 123 lbs 02/16/2012 Blood Pressure 1: 102/68 Code: 8480-6 Heart Rate 1: 68 bpm Respiratory Rate: 18 bpm Weight: 131 lbs 01/24/2012 Blood Pressure 1: 120/72 Code: 8480-6 Heart Rate 1: 72 bpm Respiratory Rate: 16 bpm Weight: 133 lbs 10/31/2011 Blood Pressure 1: 136/84 Code: 8480-6 BMI: 23.2 Code: 38783-6 Heart Rate 1: 74 bpm Height: 5'2" Respiratory Rate: 16 bpm Weight: 127 lbs 10/13/2011 Blood Pressure 1: 138/84 Code: 8480-6 BMI: 23.2 Code: 27771-3 Heart Rate 1: 80 bpm Height: 5'2" [...] 11/08/2016 None Hospital Follow Up _ pne [facility] 11/08/2016 None Hospital Follow Up Quality acute illness 11/08/2016 None Hospital Follow Up Pertinent Findings Other: cough 11/08/2016 None Hospital Follow Up _ inf ection 11/01/2016 None Hospital Follow Up _ e [facility] 11/01/2016 None Hospital Follow Up Quality [...] Quality blee ding 02/07/2013 None hemorrhoids 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 P ATIENT, LEVEL IV Diagnosis: Paroxysmal atrial fibrillation[ICD10: I48.0] Diagnosis: Abnormal weight gain[ICD10: R63.5] Diagnosis: Irritable bowel syndrome with diarrhea[ICD10: K58.0] Jennifer Walker MD, [facility] CPT-4: 84243 12/14/2017 ([id number]) 76348 EST. P ATIENT, LEVEL III Diagnosis: Paroxysmal atrial fibrillation[ICD10: I48.0] Jennifer Walker MD, [facility] CPT-4: 37954 12/06/2016 ([id number]) 60940 EST. P ATIENT, LEVEL IV Diagnosis: Paroxysmal atrial fibrillation[ICD10: I48.0] Diagnosis: Pneumonia, unspecified organism[ICD10: J18.9] Jennifer Walker MD, [facility] CPT-4: 90711 11/08/2016 ([id number]) 09571 EST. P ATIENT, LEVEL III Diagnosis: Cough[ICD10: R05] Diagnosis: Pneumonia, unspecified organism[ICD10: J18.9] Jennifer Walker MD, [facility] CPT-4: 70767 11/01/2016 ([id number]) 27035 EST. P ATIENT, LEVEL III Diagnosis: Generalized anxiety disorder[ICD10: F41.1] Jennifer Walker MD, [facility] CPT-4: 03649 11/05/2015 ([id number]) 90218 EST. P ATIENT, LEVEL III Diagnosis: Rectal bleeding[ICD9: 569.3] Jennifer Walker MD, [facility] CPT- 4: 41420 10/02/2014 ([id number]) 52005 EST. [facility]: Anxiety, generalized[ICD9: 300.02] Diagnosis: Depression[ICD9: 311] Kim Walker MD, [facility] CPT-4: 32926 01/22/2014 ([id number]) 46864 EST. [facility] Diagnosis: Bloody feces[ICD9: 578.1] Kim Walker MD, [facility] CPT-4: 05599 02/07/2013 ([id number]) 57731 EST. P ATIENT, LEVEL III Diagnosis: OSTEOARTH NOS-UNSPEC[ICD9: 715.90] Diagnosis: MUSCLE/LIGAMENT DIS NEC[ICD9: 728.89] Kim Walker MD, [facility] CPT-4: 06178 02/16/2012 ([id number]) 33770 EST. [facility] Diagnosis: Iliotibial band syndrome[ICD9: 728.89] Diagnosis: OSTEOARTH NOS-UNSPEC[ICD9: 715.90] Diagnosis: PAIN IN LIMB[ICD9: 729.5] Kim Walker MD, [facility] CPT-4: 81239 01/24/2012 ([id number]) 03219 EST. P [facility], LEVEL IV Diagnosis: OSTEOARTH NOS-UNSPEC[ICD9: 715.90] Diagnosis: ROUTINE GYNE EXAM[ICD9: V72.31] Kim Walker MD, [facility] CPT-4: 99954 10/31/2011 OFFICE VISIT, NEW - LEVEL 4 Diagnosis: Osteoarthritis[ICD9: 715.90] Diagnosis: INSOMNIA NOS[ICD9: 780.52] Diagnosis: PAIN IN LIMB[ICD9: 729.5] [facility] CPT-4: 65550 10/13/2011 Plan of Care Planned Activity Notes [...] including TSH 12/14/2017 Appointment: Jennifer Vera WPtel: [address] [place], [place] [phone] (15 min) Moderate 12/14/2017 Patient Education: Patient Medication Summary Completed 12/14/2017 Care Plan: Cbc With Differential Pending 12/14/2017 Visit Plan: Afib-converted to NSR b y Dr Solorzano-on xarelto- instructed patient to report if they start to feel as if their heart rate is becoming uncontrolled or other symptoms develop. Patient verbalized understan zayra. 12/06/2016 Appointment: Jennifer Vera WPtel: [address] [place], [place] [phone] (15 min) Moderate 12/06/2016 Patient Education: Patient Medication Summary Completed 12/06/2016 Visit Plan: Afib-ordered EKG to con firm-increase cartia for heart rate control and start eliquis 5mg twice daily-follow up with Dr Solorzano Pneumonia-finished abx-no further treatment indicated 11/08/2016 Appointment: Jennifer Vera WPtel: [address] [place], [place] [phone] (30 min) Complex 11/08/2016 Patient Education: Patient Medication Summary Completed 11/08/2016 Visit Plan: Pneumonia-on abx per ur gent-continue current treatment and follow up in 1 week to ensure resolution of symptoms. Call sooner for worsening or new symptoms. Patient verbalized understanding of plan. 11/01/2016 Appointment: Jennifer Vera WPtel: [address] [place], [place] [phone] (15 min) Moderate 11/01/2016 Patient Education: Patient [...] current medications. 11/05/2015 Appointment: Jennifer Vera WPtel: [address] [place], [place] [phone] (15 min) Moderate 11/05/2015 Patient Education: Patient [...] panic attacks 01/22/2014 Appointment: Kim Walker WPtel: [facility]5 [id number] Sick 01/22/2014 Patient Education: Patient Medication Summary Completed 01/22/2014 Care Plan: COMPLETE CBC AUTOMATED LOINC : 76420-9 Ordered 01/22/2014 Visit Plan: Blood in stool [...] Kim Walker WPtel: [id number] Follow up 02/07/2013 Patient Education: Patient Medication Summary Completed 02/07/2013 Visit Plan: Arthritis- occasionally uncontrolled symptoms- recommend pt to take antiinflammatory as directed for pain control. Use tylenol for break through pain symptoms.Start mobic daily Leg length discrepency - recommended pt to place: dr gilliland inserts- 2 in the left shoe 02/16/2012 Appointment: Kim Walker WPtel: [phone] [id number] Follow up 02/16/2012 Patient Education: Patient Medication [...] Appointment: Kim Walker WPtel: [facility] [address] 01/24/2012 Patient Education: Patient Medication Summary [...] Appointment: Kim Walker WPtel: [facility] [address] [facility] 10/31/2011 Patient Education: Patient [...] insomnia. 10/13/2011 Appointment: [id number] [place] New Patient 10/13/2011 Patient Education: Patient [...]
--- OUTSIDE RECORDS SUMMARY | 2019-12-04 07:16 | XMS REPORT | CCD ---
Author Author Linda Walker Organization Kim Walker MD, [facility] Address [address] [place] [address] Phone Care Team Providers Care Vascular Ultrasound Technician Name Role Phone PP Unavailable CCM Unavailable Summary Purpose Interface Exchange Insurance Providers Payer name Policy type / Coverage type Covered republican ID Effective Begin Date Effective End Date RACHEL GBA [id number] 2017 Unknown [employer] [id number] Unknown Family history Mother Diagnosis Age At Onset Breast cancer Unknown Brother Diagnosis Age At Onset Arthritis Unknown Grandson Diagnosis Age At Onset Diabetes Unknown Social History Social History Element Codes Description Effective Dates Tobacco history SNOMED CT: 2924039 Former smoker quit 03/201301/22/2014 Employment Unknown Retir [...] Fill Instructions Synthroid 75 mcg tablet RxNorm: 077251 1 Tablet(s) PO daily 03/29/2018 09/24/2018 Active will call for refill when ready Xanax 0.25 mg tablet RxNorm: 008112 1/2 - 1 Tablet(s) PO QID as needed anxie ty attack 01/24/2018 02/08/2018 Inactive Synthroid 25 mcg tablet RxNorm: 430376 1 Tablet(s) PO daily 12/15/2017 03/28/2018 Inactive take on an empty stomach by itself Flagyl 500 mg tablet RxNorm: 456633 1 Tablet(s) PO TID 12/15/2017 12/14/2017 Inactive Flagyl 500 mg tablet RxNorm: 040489 1 Tablet(s) PO TID 12/15/2017 12/24/2017 Inactive Synthroid 25 mcg tablet RxNorm: 108151 1 Tablet(s) PO daily 12/15/2017 12/14/2017 Inactive Fish Oil 360 mg-1,20 0 mg capsule,delayed release RxNorm: 1 Capsule(s) PO BID 12/14/2017 No Stop Date Active Xifaxan 550 mg tablet RxNorm: 326048 1 Tablet(s) PO TID 12/14/2017 12/27/2017 Inactive Xanax 0.25 mg tablet RxNorm: 161151 1/2 - 1 Tablet(s) PO QID as needed anxie ty attack 12/01/2017 12/07/2017 Inactive Xanax 0.25 mg tablet RxNorm: 672404 1/2 - 1 Tablet(s) PO QID as needed anxie ty attack 08/22/2017 08/28/2017 Inactive Cartia XT 180 mg cap clifford,extended release RxNorm: 983886 Capsule(s) TAKE ONE C APSULE BY MOUTH ONCE DAILY AT BEDTIME 08/04/2017 07/29/2018 Active Prozac 40 mg capsule RxNorm: 134465 Capsule(s) TAKE ONE CAPSULE BY MOUTH ONC E DAILY 06/08/2017 No Stop Date Active Prozac 40 mg capsule RxNorm: 994680 TAKE ONE CAPSULE BY MOUTH ONCE DAILY 05/30/2017 06/07/2017 In active Cartia XT 180 mg cap clifford,extended release RxNorm: 048662 TAKE ONE CAPSULE BY M OUTH ONCE DAILY AT BEDTIME 05/08/2017 08/03/2017 Inactive Prozac 40 mg capsule RxNorm: 603389 TAKE ONE CAPSULE BY MOUTH ONCE DAILY 02/03/2017 05/29/2017 In active Eliquis 5 mg tablet RxNorm: 9025776 1 Tablet(s) PO BID 11/09/2016 12/05/2016 Inactive Eliquis 5 mg tablet RxNorm: 5969449 1 Tablet(s) PO BID 11/09/2016 11/08/2016 Inactive Cartia XT 180 mg cap clifford,extended release RxNorm: 254991 1 Capsule(s) PO QHS 11/08/2016 05/06/2017 In active Prozac 40 mg capsule RxNorm: 740028 TAKE ONE CAPSULE BY MOUTH ONCE DAILY 11/07/2016 02/02/2017 In active Phenergan with Codei ne Syrup RxNorm: 2.5 Milliliter(s) PO QHS as needed 10/28/2016 No Stop Date Active levofloxacin 500 mg tablet RxNorm: 354819 1 Tablet(s) PO daily 10/28/2016 11/06/2016 Inactive Prozac 40 mg capsule RxNorm: 516158 TAKE ONE CAPSULE BY MOUTH ONCE DAILY 08/01/2016 10/29/2016 In active Prozac 40 mg capsule RxNorm: 835673 1 Capsule(s) PO daily 11/05/2015 05/02/2016 Inactive [SAVINGS FOR UNINSURED PATIENTS -- BIN:0 84738, PCN: ASPROD1, Group: [id number], ID# [id number], Process claim through [employer], for questions: . THIS IS NOT INSURANCE.] Xanax 0.25 mg tablet RxNorm: 103950 1/2 - 1 Tablet(s) PO QID as needed anxie ty attack 11/02/2015 01/29/2016 Inactive Prozac 40 mg capsule RxNorm: 109951 Capsule(s) TAKE ONE CAPSULE BY MOUTH ONC E DAILY 08/12/2015 08/11/2015 Inactive NEEDS APPT Prozac 40 mg capsule RxNorm: 363754 TAKE ONE CAPSULE BY MOUTH ONCE DAILY 08/12/2015 07/31/2016 In active hydrocortisone aceta te 25 mg rectal suppository RxNorm: 9759231 1 Suppository RTL QH S 10/02/2014 No Stop Date Active daily HS x 1 week, then twice weekly the n as needed Prozac 40 mg capsule RxNorm: 902719 TAKE ONE CAPSULE BY MOUTH ONCE DAILY 07/31/2014 01/26/2015 In active Prozac 40 mg capsule RxNorm: 011424 1 Capsule(s) PO daily 07/30/2014 02/24/2015 Inactive [SAVINGS FOR NON-COVERED DRUGS -- BIN:00 3585, PCN: ASPROD1, Group: XXXXX, ID# [id number], Questions: . THIS IS NOT INSURANCE.] Xanax 0.25 mg tablet RxNorm: 134175 1/2 - 1 Tablet(s) PO QID as needed anxie ty attack 01/22/2014 03/22/2014 Inactive Prozac 40 mg capsule RxNorm: 691341 1 Capsule(s) PO daily 01/22/2014 07/20/2014 Inactive [SAVINGS FOR UNINSURED PATIENTS -- BIN:0 17382, PCN: ASPROD1, Group: [id number], ID# [id number], Process claim through [employer], for questions: . THIS IS NOT INSURANCE.] Prozac 20 mg capsule RxNorm: 100101 1 Capsule(s) PO daily 08/08/2013 01/21/2014 Inactive Prozac 20 mg capsule RxNorm: 953355 1 Capsule(s) PO daily 07/19/2013 08/07/2013 Inactive Prozac 20 mg capsule RxNorm: 657620 1 Capsule(s) PO daily 02/12/2013 07/18/2013 Inactive Influenza Virus Vacc ine 0.5 mL RxNorm: IM 02/16/2012 02/16/2012 Inactive meloxicam 7.5 mg tablet RxNorm: 571629 1 Tablet(s) PO BID ONE PILL IN MORNING, IF PAIN IS UNCONTROLLED, MAY TAKE ONE EXTRA PILL IN THe PM do not take with ibuprofen or aleve 01/24/2012 02/15/2012 Inactive Aspirin Low Dose 81 mg tablet,delayed release RxNorm: 892522 1 Tablet(s) PO daily No Start Date Active Tylenol 8 Hour 650 m g tablet,extended release RxNorm: 8320231 1 Tablet(s) PO BID No Start Date Active Repatha SureClick 14 0 mg/mL subcutaneous pen injector RxNorm: 8023120 1 Milliliter(s) SQ Q2 weeks No Start Date Active amiodarone 200 mg ta blet RxNorm: 215608 1/2 Tablet(s) PO daily No Start Date Active prasugrel 10 mg tablet RxNorm: 922075 1 Tablet(s) PO daily No Start Date Active PreserVision AREDS 2 oral RxNorm: 5359658 oral No Start Date Active melatonin 10 mg tablet RxNorm: 3630521 1 Tablet(s) PO QHS No Start Date Active pantoprazole 40 mg t ablet,delayed release RxNorm: 797765 1 Tablet(s) PO daily No Start Date Active isosorbide mononitra te ER 30 mg tablet,extended release 24 hr RxNorm: 648342 1 Tablet(s) PO daily No Start Date Active melatonin 3 mg Tab RxNorm: 035999 2 Tablet(s) PO QHS No Start Date 12/13/2017 Inactive Xarelto 20 mg tablet RxNorm: 8289152 1 Tablet(s) PO QPM No Start Date 12/13/2017 Inactive Calcium 600 + D(3) 6 00 mg (1,500 mg)-400 unit Tab RxNorm: 305026 1 Tablet(s) PO QPM No Start Date 12/13/2017 Inactive Fish Oil 360 mg-1,20 0 mg capsule,delayed release RxNorm: 1 Capsule(s) PO daily No Start Date 12/13/2017 Inactive Prozac 20 mg capsule RxNorm: 444434 1 Capsule(s) PO daily No Start Date 02/11/2013 Inactive Breo Ellipta inhalation RxNorm: 2144460 inhalation No Start Date 12/13/2017 Inactive fenofibrate nanocrys tallized 145 mg tablet RxNorm: 790429 Tablet(s) PO daily No Start Date 10/31/2016 Inactive Centrum Silver Ultra Women's Tab RxNorm: 1 Tablet(s) PO QHS No Start Date 10/31/2016 Inactive Cartia XT 120 mg cap clifford,extended release RxNorm: 529806 1 Capsule(s) PO QHS No Start Date [...] Item Item Code Result Date Free T4 [id number] FREE T4 0.52 ng/dL 03/22/2018 Tsh Ord6 TSH (3rd IS) 42.22 uIU/mL 03/22/2018 Cbc With Differential Ord2 WBC 2.55 K/ul 12/15/2017 Cbc With Differential Ord2 RBC 3.80 M/ul 12/15/2017 Cbc With Differential Ord2 HGB 12.7 g/dl 12/15/2017 Cbc With Differential Ord2 Neut% 48.2 % 12/15/2017 Cbc With Differential Ord2 HCT 38.2 % 12/15/2017 Cbc With Differential Ord2 MCV 100.5 fl 12/15/2017 Cbc With Differential Ord2 Lymph% 30.6 % 12/15/2017 Cbc With Differential Ord2 MCH 33.4 pg 12/15/2017 Cbc With Differential Ord2 Lake% 17.3 % 12/15/2017 Cbc With Differential Ord2 [...] 0.78 K/ul 12/15/2017 Cbc With Differential Ord2 Lake ABS# 0.4 K/ul 12/15/2017 Cbc With Differential Ord2 Eos ABS# 0.1 K/ul 12/15/2017 Cbc With Differential Ord2 Baso ABS# 0.0 K/ul 12/15/2017 Free T4 Bxq695 FREE T4 0.34 ng/dL 12/15/2017 Test(s) Not Perfromed [id number] Test(s) Not Performed Test(s) Not Performed. See Below: 12/14/2017 Test(s) Not Perfromed [id number] TEST NAME CBC 12/14/2017 Test(s) Not Perfromed [id number] Rejection Reason No Suitable Specimen Receive d 12/14/2017 Test(s) Not Perfromed [id number] COMMENT Grace notified for redraw 12/14/2017 Test(s) Not Perfromed [id number] Recruitment Specialist Wale Whitman 12/14/2017 Tsh Ord6 TSH (3rd IS) 48.79 uIU/mL 12/14/2017 Comp Metabolic Mlp161 NA 137 mEq/L 12/14/2017 Comp Metabolic Len610 K 4.3 mEq/L 12/14/2017 Comp Metabolic Heh868 CL 101 mEq/L 12/14/2017 Comp Metabolic Xal210 CO2 29.0 mEq/L 12/14/2017 Comp Metabolic Dbv093 AN ION GAP 11 12/14/2017 Comp Metabolic Qes889 GL UCOSE 81 mg/dL 12/14/2017 Comp Metabolic Way744 Cr eat 0.7 mg/dL 12/14/2017 Comp Metabolic Juq508 eG FR 86 ml/min/1.73m2 12/14 Comp Metabolic Aei665 BUN 14 mg/dL 12/14/2017 Comp Metabolic Uwd869 B/ C Ratio 19.7 Ratio 12/14/2017 Comp Metabolic Ifk958 CA LCIUM 9.2 mg/dL 12/14/2017 Comp Metabolic Xud856 AL K PHOS 112 U/L 12/14/2017 Comp Metabolic Tmx804 T(SGOT) 25 U/L 12/14/2017 Comp Metabolic Gbo085 AL T(SGPT) 20 U/L 12/14/2017 Comp Metabolic Ivy144 BI LI T 0.8 mg/dL 12/14/2017 Comp Metabolic Gyc945 AL BUMIN 4.1 g/dL 12/14/2017 Comp Metabolic Aqo928 TP RO 6.9 g/dL 12/14/2017 Comp Metabolic Qpr707 GL OB 2.9 g/dL 12/14/2017 Comp Metabolic Izw542 A/ G Ratio 1.4 Ratio 12/14/2017 Comp Metabolic Nwm190 Os mo 273 mOsmo 12/14/2017 LIPID GRP HDL TE ST 70 MG/DL 01/23/2014 LIPID GRP TRIG 134 MG/DL 01/23/2014 LIPID GRP TEST L DL 117 MG/DL 01/23/2014 LIPID GRP CHOL 214 MG/DL 01/23/2014 LIPID GRP RCHOL/ HDL 3.06 RATIO 01/23/2014 LIPID GRP NON-HD L CH 144 MG/DL 01/23/2014 TSH 9695960 TSH 1.784 uIU/ML 01/23/2014 CBC 6328211 WBC 4.7 10e9/L 01/23/2014 CBC 2983898 RBC 4.10 10e12/L 01/23/2014 CBC 6544741 HGB 13.3 g/dL 01/23/2014 CBC 2701611 HCT DET 39.2 % 01/23/2014 CBC 7915009 MCV 95.6 fL 01/23/2014 CBC 2753342 MCH 32.4 pg 01/23/2014 CBC 9669328 MCHC 33.9 g/dL 01/23/2014 CBC 1358875 PLT 232 10e9/L 01/23/2014 CBC 2714819 MPV 10.9 fL 01/23/2014 CBC 8791439 DORON % 57.4 % 01/23/2014 CBC 5101029 LY % 28.0 % 01/23/2014 CBC 7230824 MON % 12.9 % 01/23/2014 CBC 5266832 EOS % 1.3 % 01/23/2014 CBC 4692259 BASO % 0.4 % 01/23/2014 CBC 4628994 RDW 12.1 % 01/23/2014 CBC 4487743 ABS DORON 2.70 10e9/L 01/23/2014 CBC 8066827 ABS LYMPH 1.32 10e9/L 01/23/2014 CBC 5926478 ABS MONO 0.61 10e9/L 01/23/2014 CBC 6482698 ABS EOS 0.06 10e9/L 01/23/2014 CBC 1553888 ABS BASO 0.02 10e9/L 01/23/2014 CBC 8836656 RDW-SD 41.2 fL 01/23/2014 CHEM 14 8764508 AST 18 U/L 01/23/2014 CHEM 14 7051963 ALT 13 IU/L 01/23/2014 CHEM 14 3196519 BUN 16 MG/DL 01/23/2014 CHEM 14 1418298 ALBUMIN 4.2 GM/DL 01/23/2014 CHEM 14 6475138 CHLORIDE 105 MMOL/L 01/23/2014 CHEM 14 2665986 BILI TOT 0.7 MG/DL 01/23/2014 CHEM 14 2253845 ALK PHOS 61 U/L 01/23/2014 CHEM 14 3021065 SODIUM 138 MMOL/L 01/23/2014 CHEM 14 9997220 CREATINI NE 0.65 MG/DL 01/23/2014 CHEM 14 1481491 CALCIUM 9.5 MG/DL 01/23/2014 CHEM 14 0909904 POTASSIUM 4.4 MMOL/L 01/23/2014 CHEM 14 0030293 PROT TOT 6.8 GM/DL 01/23/2014 CHEM 14 2739190 GLUCOSE 93 MG/DL 01/23/2014 CHEM 14 6683446 BICARB 28 MMOL/L 01/23/2014 CHEM 14 7863561 ANION GAP 5 MEQ/L 01/23/2014 GFR CALC 3857711 GFR AA >60 ML/MIN 01/23/2014 GFR CALC 9784383 GFR NON -AA >60 ML/MIN 01/23/2014 URIC ACID 8641621 URIC A KYLE 5.7 MG/DL 10/13/2011 CHEM 14 0430279 AST 19 U/L 10/13/2011 CHEM 14 6437796 ALT 16 U/L 10/13/2011 CHEM 14 9833290 BUN 21 MG/DL 10/13/2011 CHEM 14 5931765 ALBUMIN 4.2 GM/DL 10/13/2011 CHEM 14 9593722 CHLORIDE 103 MMOL/L 10/13/2011 CHEM 14 0802839 BILI TOT 0.6 MG/DL 10/13/2011 CHEM 14 5489050 ALK PHOS 71 U/L 10/13/2011 CHEM 14 6122612 SODIUM 141 MMOL/L 10/13/2011 CHEM 14 6478945 CREATINI NE 0.65 MG/DL 10/13/2011 CHEM 14 2713041 CALCIUM 9.3 MG/DL 10/13/2011 CHEM 14 0409478 POTASSIUM 4.2 MMOL/L 10/13/2011 CHEM 14 6444161 PROT TOT 6.8 GM/DL 10/13/2011 CHEM 14 5705685 GLUCOSE 69 MG/DL 10/13/2011 CHEM 14 8629009 BICARB 27 MMOL/L 10/13/2011 CHEM 14 2596387 ANION GAP 11 MMOL/L 10/13/2011 CBC 2499651 WBC 6.1 10e9/L 10/13/2011 CBC 6827187 RBC 4.11 10e12/L 10/13/2011 CBC 3971806 HGB 13.3 g/dL 10/13/2011 CBC 6394228 HCT DET 39.6 % 10/13/2011 CBC 4925899 MCV 96.4 fL 10/13/2011 CBC 2119567 MCH 32.4 pg 10/13/2011 CBC 8990427 MCHC 33.6 g/dL 10/13/2011 CBC 3171476 PLT 238 10e9/L 10/13/2011 CBC 7999050 MPV 11.7 fL 10/13/2011 CBC 5310406 DORON % 50.2 % 10/13/2011 CBC 9378885 LY % 35.6 % 10/13/2011 CBC 5426702 MON % 12.7 % 10/13/2011 CBC 2451989 EOS % 1.2 % 10/13/2011 CBC 8854747 BASO % 0.3 % 10/13/2011 CBC 9045176 RDW 12.3 % 10/13/2011 CBC 0017277 ABS DORON 3.06 10e9/L 10/13/2011 CBC 7833074 ABS LYMPH 2.17 10e9/L 10/13/2011 CBC 2907367 ABS MONO 0.77 10e9/L 10/13/2011 CBC 9501922 ABS EOS 0.07 10e9/L 10/13/2011 CBC 7489838 ABS BASO 0.02 10e9/L 10/13/2011 CBC 7214056 RDW-SD 42.3 fL 10/13/2011 GFR CALC 6926244 GFR AA >60 ML/MIN 10/13/2011 GFR CALC 5554198 GFR NON -AA >60 ML/MIN 10/13/2011 ESR 2133576 ESR 14 MM/HR 10/13/2011 Review of Systems [...] distress 02/07/2013 None Full Exam - General 1995 Constitutional general appearance Overall: well nourished 02/07/2013 [...] retractions 01/24/2012 None Full Exam - General 1995 Respiratory respiratory effort/rhythm Overall: normal rate 01/24/2012 [...] accomodation 10/31/2011 None Full Exam - General 1995 [...] atraumatic 10/31/2011 None Full Exam - General 1995 [...] SY CPT-4: G8553 01/24/2012 ROUTINE VENIPUNCTURE CPT-4: 15485 10/13/2011 Vital Signs Date Vital 12/14/2017 Blood Pressure 1: 138/80 Code: 8480-6 BMI: 28.8 Code: 78102-5 Heart Rate 1: 73 bpm Height: 5' SpO2: 98% Weight: 150 lbs 12/06/2016 Blood Pressure 1: 146/82 Code: 8480-6 BMI: 26.8 Code: 57757-2 Heart Rate 1: 58 bpm Height: 5' [...] 1: 118/74 Code: 8480-6 BMI: 25.7 Code: 80089-3 Heart Rate 1: 64 bpm Height: 5' SpO2: 98% Weight: 134 lbs 10/02/2014 Blood Pressure 1: 136/88 Code: 8480-6 BMI: 25.9 Code: 22252-4 Heart Rate 1: 68 bpm Height: 5' SpO2: 98% Weight: 135 lbs 01/22/2014 Blood Pressure 1: 122/64 Code: 8480-6 BMI: 25.7 Code: 12675-5 Heart Rate 1: 72 bpm Height: 5' Weight: 134 lbs 02/07/2013 Blood Pressure 1: 140/80 Code: 8480-6 BMI: 23.6 Code: 02788-1 Height: 5' Weight: 123 lbs 02/16/2012 Blood Pressure 1: 102/68 Code: 8480-6 Heart Rate 1: 68 bpm Respiratory Rate: 18 bpm Weight: 131 lbs 01/24/2012 Blood Pressure 1: 120/72 Code: 8480-6 Heart Rate 1: 72 bpm Respiratory Rate: 16 bpm Weight: 133 lbs 10/31/2011 Blood Pressure 1: 136/84 Code: 8480-6 BMI: 23.2 Code: 43673-6 Heart Rate 1: 74 bpm Height: 5'2" Respiratory Rate: 16 bpm Weight: 127 lbs 10/13/2011 Blood Pressure 1: 138/84 Code: 8480-6 BMI: 23.2 Code: 65931-0 Heart Rate 1: 80 bpm Height: 5'2" [...] 11/01/2016 None Hospital Follow Up _ pne onia 11/01/2016 None Hospital Follow Up Quality acute [...] Quality blee ding 02/07/2013 None hemorrhoids Quality technical manager holly 02/07/2013 None hemorrhoids Onset and [...] Encounters Encounter Performer Loca tion Codes Date ([id number]) 42909 EST. P ATIENT, LEVEL IV Diagnosis: Paroxysmal atrial fibrillation[ICD10: I48.0] Diagnosis: Abnormal weight gain[ICD10: R63.5] Diagnosis: Irritable bowel syndrome with diarrhea[ICD10: K58.0] Jennifer Walker MD, [facility] CPT-4: 37952 12/14/2017 ([id number]) 38701 EST. P ATIENT, LEVEL III Diagnosis: Paroxysmal atrial fibrillation[ICD10: I48.0] Jennifer Walker MD, [facility] CPT-4: 64438 12/06/2016 ([id number]) 87352 EST. P ATIENT, LEVEL IV Diagnosis: Paroxysmal atrial fibrillation[ICD10: I48.0] Diagnosis: Pneumonia, unspecified organism[ICD10: J18.9] Jennifer Walker MD, [facility] CPT-4: 12261 11/08/2016 ([id number]) 35292 EST. P ATIENT, LEVEL III Diagnosis: Cough[ICD10: R05] Diagnosis: Pneumonia, unspecified organism[ICD10: J18.9] Jennifer Walker MD, [facility] CPT-4: 48932 11/01/2016 ([id number]) 20058 EST. P ATIENT, LEVEL III Diagnosis: Generalized anxiety disorder[ICD10: F41.1] Jennifer Walker MD, [facility] CPT-4: 53221 11/05/2015 ([id number]) 99117 EST. P ATIENT, LEVEL III Diagnosis: Rectal bleeding[ICD9: 569.3] Jennifer Walker MD, [facility] CPT- 4: 18586 10/02/2014 ([id number]) 52510 EST. P ATIENT, LEVEL III Diagnosis: Anxiety, generalized[ICD9: 300.02] Diagnosis: Depression[ICD9: 311] [facility] CPT-4: 16364 01/22/2014 ([id number]) 35966 EST. P ATIENT, LEVEL III Diagnosis: Bloody feces[ICD9: 578.1] [facility] CPT-4: 76297 02/07/2013 ([id number]) 60074 EST. P ATIENT, LEVEL III Diagnosis: OSTEOARTH NOS-UNSPEC[ICD9: 715.90] Diagnosis: MUSCLE/LIGAMENT DIS NEC[ICD9: 728.89] [facility] CPT-4: 74861 02/16/2012 ([id number]) 30445 EST. P ATIENT, LEVEL III Diagnosis: Iliotibial band syndrome[ICD9: 728.89] Diagnosis: OSTEOARTH NOS-UNSPEC[ICD9: 715.90] Diagnosis: PAIN IN LIMB[ICD9: 729.5] [facility] CPT-4: 51623 01/24/2012 ([id number]) 56976 EST. P ATIENT, LEVEL IV Diagnosis: OSTEOARTH NOS-UNSPEC[ICD9: 715.90] Diagnosis: ROUTINE GYNE EXAM[ICD9: V72.31] [facility] CPT-4: 20883 10/31/2011 OFFICE VISIT, NEW - LEVEL 4 Diagnosis: Osteoarthritis[ICD9: 715.90] Diagnosis: INSOMNIA NOS[ICD9: 780.52] Diagnosis: PAIN IN LIMB[ICD9: 729.5] [facility] CPT-4: 42307 10/13/2011 Plan of Care Planned Activity Notes [...] including TSH 12/14/2017 Appointment: Jennifer Vera WPtel: [address] [place], [place] [phone] (15 min) Moderate 12/14/2017 Patient Education: Patient Medication Summary Completed 12/14/2017 Care Plan: Cbc With Differential Pending 12/14/2017 Visit Plan: Afib-converted to NSR b y Dr Solorzano-on xarelto- instructed patient to report if they start to feel as if their heart rate is becoming uncontrolled or other symptoms develop. Patient verbalized understan ding. 12/06/2016 Appointment: Jennifer Vera WPtel: [facility] [place] [address] (15 min) Moderate 12/06/2016 Patient Education: Patient Medication Summary Completed 12/06/2016 Visit Plan: Afib-ordered EKG to con firm-increase cartia for heart rate control and start eliquis 5mg twice daily-follow up with Dr Solorzano Pneumonia-finished abx-no further treatment indicated 11/08/2016 Appointment: Jennifer Vera WPtel: [address] [place], [place] [phone] (30 min) Complex 11/08/2016 Patient Education: Patient Medication Summary Completed 11/08/2016 Visit Plan: Pneumonia-on abx per ur gent-continue current treatment and follow up in 1 week to ensure resolution of symptoms. Call sooner for worsening or new symptoms. Patient verbalized understanding of plan. 11/01/2016 Appointment: Jennifer Vera WPtel: [phone] (15 min) Moderate 11/01/2016 Patient [...] Jennifer Vera WPtel: [phone] (15 min) Moderate 11/05/2015 Patient [...] panic attacks 01/22/2014 Appointment: Kim Walker WPtel: [address] [place], [place] [phone] Sick 01/22/2014 Patient Education: Patient Medication Summary Completed 01/22/2014 Care Plan: COMPLETE CBC AUTOMATED LOINC : 28349-4 Ordered 01/22/2014 Visit Plan: Blood in stool [...] work up. 02/07/2013 Appointment: Kim Walker WPtel: [address] [place], [place] [phone] Follow up 02/07/2013 Patient Education: Patient Medication Summary Completed 02/07/2013 Visit Plan: Arthritis- occasionally uncontrolled symptoms- recommend pt to take antiinflammatory as directed for pain control. Use tylenol for break through pain symptoms.Start mobic daily Leg length discrepency - recommended pt to place: dr gilliland inserts- 2 in the left shoe 02/16/2012 Appointment: Kim Walker WPtel: [phone] Follow up 02/16/2012 Patient Education: Patient Medication [...] for re-eval. 01/24/2012 Appointment: Kim Walker WPtel: [facility] Other 01/24/2012 Patient Education: Patient Medication [...] Kim Walker WPtel: [facility] [address] [facility] 10/31/2011 Patient Education: Patient [...] Kim Walker WPtel: [phone] [place] New [facility] 10/13/2011 Patient Education: [...]
--- OUTSIDE RECORDS SUMMARY | 2019-12-04 07:17 | XMS REPORT | Continuity of Care Document ---
Author Organization Unknown Address Unknown Phone Unavailable Allergies Active Description Code Type Severity Reaction Onset Reported/Identified Relationship to Patient Clinical Status Yes No Known Drug Allergies [id number] Drug Allergy Unknown N/A 04/17/2013 Yes DYE DYE Unknown N/A 01/29/2016 Yes fenofibrate [id number] Drug Aller gy Moderate CRAMPING 01/11/2017 Medications There is no data. Problems Date Dx Coded Attending Type Code Diagnosis Diagnosed By 04/27/1354 HERMAN TEJEDA MD, Ot Z48.812 ENCNTR FOR SURGICAL AFTCR FOLLOWING SURG 04/27/1354 HERMAN TEJEDA MD Ot Z95. 5 PRESENCE OF CORONARY ANGIOPLASTY IMPLANT 10/17/2012 JEANNE JEFF DO Ot 726.5 ENTHESOPATHY OF HIP 10/17/2012 JEANNE JEFF DO Ot V57.1 PHYSICAL THERAPY NEC 04/17/2013 GILDA BARNES MD Ot 211.4 BENIGN NEOPL RECTUM/ANUS 04/17/2013 GILDA BARNES MD Ot 562.10 DIVERTICULOSIS COLON (W/O MENT OF HEMORR 10/22/2014 GILDA BARNES MD Ot 211.4 BENIGN NEOPL RECTUM/ANUS 10/22/2014 GILDA BARNES MD Ot 414.01 CORONARY ATHEROSCLEROSIS OF [place] CORON 10/22/2014 GILDA BARNES MD Ot 562.10 DIVERTICULOSIS COLON (W/O MENT OF HEMORR 01/09/2015 HERMAN TEJEDA MD Ot 311 01/09/2015 HERMAN TEJEDA MD Ot 401. 9 01/09/2015 HERMAN TEJEDA MD Ot 786. 09 01/09/2015 HERMAN TEJEDA MD Ot 786. 50 01/15/2015 HERMAN TEJEDA MD Ot 311 01/15/2015 HERMAN TEJEDA MD Ot 401. 9 01/15/2015 HERMAN TEJEDA MD Ot 786. 09 01/15/2015 HERMAN TEJEDA MD Ot 786. 50 01/21/2015 HERMAN TEJEDA MD Ot 311 01/21/2015 HERMAN TEJEDA MD Ot 401. 9 01/21/2015 HERMAN TEJEDA MD Ot 786. 09 01/21/2015 HERMAN TEJEDA MD Ot 786. 50 10/08/2015 Ot 719.45 NALINI NT PAIN-PELVIS 10/08/2015 GILDA BARNES MD Ot V72.84 EXAM PRE-OPERATIVE NOS 10/08/2015 JENNIFER RIDER MD Ot V71.2 OBSERV-SUSPECT TB 10/08/2015 GILDA BARNES MD Ot V72.84 EXAM PRE-OPERATIVE NOS 10/08/2015 HERMAN TEJEDA MD Ot 311 DEPRESSIVE DISORDER NEC 10/08/2015 HERMAN TEJEDA MD Ot 401. 9 HYPERTENSION NOS 10/08/2015 HERMAN TEJEDA MD Ot 786. 09 RESPIRATORY ABNORM NEC 10/08/2015 HERMAN TEJEDA MD Ot 786. 50 CHEST PAIN NOS 10/08/2015 HERMAN TEJEDA MD Ot 311 DEPRESSIVE DISORDER NEC 10/08/2015 HERMAN TEJEDA MD Ot 401. 9 HYPERTENSION NOS 10/08/2015 HERMAN TEJEDA MD Ot 786. 09 RESPIRATORY ABNORM NEC 10/08/2015 HERMAN TEJEDA MD Ot 786. 50 CHEST PAIN NOS 10/08/2015 HERMAN TEJEDA MD Ot R00. 2 PALPITATIONS 10/09/2015 HERMAN TEJEDA MD Ot F32. 9 MAJOR DEPRESSIVE DISORDER, SINGLE EPISOD 10/09/2015 HERMAN TEJEDA MD Ot I10 ESSENTIAL (PRIMARY) HYPERTENSION 10/09/2015 HERMAN TEJEDA MD Ot R00. 2 PALPITATIONS 10/09/2015 HERMAN TEJEDA MD Ot R06. 00 DYSPNEA, UNSPECIFIED 10/12/2015 HERMAN TEJEDA MD Ot F32. 9 MAJOR DEPRESSIVE DISORDER, SINGLE EPISOD 10/12/2015 HERMAN TEJEDA MD Ot I10 ESSENTIAL (PRIMARY) HYPERTENSION 10/12/2015 HERMAN TEJEDA MD Ot R00. 2 PALPITATIONS 10/12/2015 HERMAN TEJEDA MD Ot R06. 00 DYSPNEA, UNSPECIFIED 11/04/2015 HERMAN TEJEDA MD Ot F32. 9 MAJOR DEPRESSIVE DISORDER, SINGLE EPISOD 11/04/2015 HERMAN TEJEDA MD Ot I10 ESSENTIAL (PRIMARY) HYPERTENSION 11/04/2015 HERMAN TEJEDA MD Ot R00. 2 PALPITATIONS 11/04/2015 HERMAN TEJEDA MD Ot R06. 00 DYSPNEA, UNSPECIFIED 02/02/2016 SUREKHA JOSHI MD Ot F17.210 NICOTINE DEPENDENCE, CIGARETTES, UNCOMPL 02/02/2016 SUREKHA JOSHI MD Ot I10 ESSENTIAL (PRIMARY) HYPERTENSION 02/02/2016 SUREKHA JOSHI MD Ot R06.02 SHORTNESS OF BREATH 02/02/2016 SUREKHA JOSHI MD Ot R07 .9 CHEST PAIN, UNSPECIFIED 02/02/2016 SUREKHA JOSHI MD Ot R42 DIZZINESS AND GIDDINESS 02/25/2016 SUREKHA JOSHI MD Ot F17.210 NICOTINE DEPENDENCE, CIGARETTES, UNCOMPL 02/25/2016 SUREKHA JOSHI MD Ot I10 ESSENTIAL (PRIMARY) HYPERTENSION 02/25/2016 SUREKHA JOSHI MD Ot R06.02 SHORTNESS OF BREATH 02/25/2016 SUREKHA JOSHI MD Ot R07 .9 CHEST PAIN, UNSPECIFIED 02/25/2016 SUREKHA JOSHI MD Ot R42 DIZZINESS AND GIDDINESS 11/08/2016 Ot 719.45 NALINI NT PAIN-PELVIS 11/08/2016 GILDA BARNES MD Ot V72.84 EXAM PRE-OPERATIVE NOS 11/08/2016 ADRY KIRK, JENNIFER [place] Ot V71.2 OBSERV-SUSPECT TB 11/08/2016 GILDA BARNES MD Ot V72.84 EXAM PRE-OPERATIVE NOS 11/08/2016 HERMAN TEJEDA MD Ot 311 DEPRESSIVE DISORDER NEC 11/08/2016 HERMAN TEJEDA MD Ot 401. 9 HYPERTENSION NOS 11/08/2016 HERMAN TEJEDA MD Ot 786. 09 RESPIRATORY ABNORM NEC 11/08/2016 HERMAN TEJEDA MD Ot 786. 50 CHEST PAIN NOS 11/08/2016 HERMAN TEJEDA MD Ot 311 DEPRESSIVE DISORDER NEC 11/08/2016 HERMAN TEJEDA MD Ot 401. 9 HYPERTENSION NOS 11/08/2016 HERMAN TEJEDA MD Ot 786. 09 RESPIRATORY ABNORM NEC 11/08/2016 HERMAN TEJEDA MD Ot 786. 50 CHEST PAIN NOS 11/08/2016 HERMAN TEJEDA MD Ot F32. 9 MAJOR DEPRESSIVE DISORDER, SINGLE EPISOD 11/08/2016 HERMAN TEJEDA MD Ot I10 ESSENTIAL (PRIMARY) HYPERTENSION 11/08/2016 HERMAN TEJEDA MD Ot R00. 2 PALPITATIONS 11/08/2016 HERMAN TEJEDA MD Ot R06. 00 DYSPNEA, UNSPECIFIED 11/08/2016 SUREKHA JOSHI MD Ot F17.210 NICOTINE DEPENDENCE, CIGARETTES, UNCOMPL 11/08/2016 SUREKHA JOSHI MD Ot I10 ESSENTIAL (PRIMARY) HYPERTENSION 11/08/2016 SUREKHA JOSHI MD Ot R06.02 SHORTNESS OF BREATH 11/08/2016 SUREKHA JOSHI MD Ot R07 .9 CHEST PAIN, UNSPECIFIED 11/08/2016 SUREKHA JOSHI MD Ot R42 DIZZINESS AND GIDDINESS 11/09/2016 FIDELIA BOOTH JOB DEVELOPER [employer] Ot I48.91 UNSPECIFIED ATRIAL FIBRILLATION 11/14/2016 FIDELIA BOOTH JOB DEVELOPER FOR [employer] Ot I48.91 UNSPECIFIED ATRIAL FIBRILLATION 11/22/2016 FIDELIA BOOTH JOB DEVELOPER FOR [employer] Ot I48.91 UNSPECIFIED ATRIAL FIBRILLATION 11/24/2016 HERMAN TEJEDA MD Ot E78. 5 HYPERLIPIDEMIA, UNSPECIFIED 11/24/2016 HERMAN TEJEDA MD Ot I34. 0 NONRHEUMATIC MITRAL (VALVE) INSUFFICIENC 11/24/2016 HERMAN TEJEDA MD Ot I48. 91 UNSPECIFIED ATRIAL FIBRILLATION 11/24/2016 HERMAN TEJEDA MD Ot R07. 89 OTHER CHEST PAIN 11/28/2016 HERMAN TEJEDA MD Ot E78. 5 HYPERLIPIDEMIA, UNSPECIFIED 11/28/2016 HERMAN TEJEDA MD Ot I34. 0 NONRHEUMATIC MITRAL (VALVE) INSUFFICIENC 11/28/2016 HERMAN TEJEDA MD Ot I48. 91 UNSPECIFIED ATRIAL FIBRILLATION 11/28/2016 HERMAN TEJEDA MD Ot R07. 89 OTHER CHEST PAIN 12/06/2016 HERMAN TEJEDA MD Ot E78. 5 HYPERLIPIDEMIA, UNSPECIFIED 12/06/2016 HERMAN TEJEDA MD Ot I34. 0 NONRHEUMATIC MITRAL (VALVE) INSUFFICIENC 12/06/2016 HERMAN TEJEDA MD Ot I48. 91 UNSPECIFIED ATRIAL FIBRILLATION 12/06/2016 HERMAN TEJEDA MD Ot R07. 89 OTHER CHEST PAIN 12/20/2016 JEFERSON DE JESUS MD Ot F17.210 NICOTINE DEPENDENCE, CIGARETTES, UNCOMPL 12/20/2016 JEFERSON DE JESUS MD Ot F32.9 MAJOR DEPRESSIVE DISORDER, SINGLE EPISOD 12/20/2016 JEFERSON DE JESUS MD Ot F41.9 ANXIETY DISORDER, UNSPECIFIED 12/20/2016 JEFERSON DE JESUS MD Ot M19.90 UNSPECIFIED OSTEOARTHRITIS, UNSPECIFIED 12/20/2016 JEFERSON DE JESUS MD Ot R07.9 CHEST PAIN, UNSPECIFIED 12/20/2016 JEFERSON DE JESUS MD Ot Z90.710 ACQUIRED ABSENCE OF BOTH CERVIX AND UTER 12/20/2016 JEFERSON DE JESUS MD Ot Z98.890 OTHER SPECIFIED POSTPROCEDURAL STATES 12/22/2016 JEFERSON DE JESUS MD Ot F17.210 NICOTINE DEPENDENCE, CIGARETTES, UNCOMPL 12/22/2016 JEFERSON DE JESUS MD Ot F32.9 MAJOR DEPRESSIVE DISORDER, SINGLE EPISOD 12/22/2016 JEFERSON DE JESUS MD Ot F41.9 ANXIETY DISORDER, UNSPECIFIED 12/22/2016 JEFERSON DE JESUS MD Ot M19.90 UNSPECIFIED OSTEOARTHRITIS, UNSPECIFIED 12/22/2016 JEFERSON DE JESUS MD Ot R07.9 CHEST PAIN, UNSPECIFIED 12/22/2016 JEFERSON DE JESUS MD Ot Z90.710 ACQUIRED ABSENCE OF BOTH CERVIX AND UTER 12/22/2016 JEFERSON DE JESUS MD Ot Z98.890 OTHER SPECIFIED POSTPROCEDURAL STATES 01/12/2017 HERMAN TEJEDA MD Ot E78. 5 HYPERLIPIDEMIA, UNSPECIFIED 01/12/2017 HERMAN TEJEDA MD Ot F41. 8 OTHER SPECIFIED ANXIETY DISORDERS 01/12/2017 HERMAN TEJEDA MD Ot I10 ESSENTIAL (PRIMARY) HYPERTENSION 01/12/2017 HERMAN TEJEDA MD Ot I25. 10 ATHSCL HEART DISEASE OF [place] CORONARY 01/12/2017 HERMAN TEJEDA MD Ot I48. 0 PAROXYSMAL ATRIAL FIBRILLATION 01/12/2017 HERMAN TEJEDA MD Ot M79.606 PAIN IN LEG, UNSPECIFIED 01/12/2017 HERMAN TEJEDA MD Ot Z79. 01 CORRECTION (CURRENT) USE OF ANTICOAGULANT 01/12/2017 HERMAN TEJEDA MD Ot Z79.899 OTHER CORRECTION (CURRENT) DRUG THERAPY 01/12/2017 HERMAN TEJEDA MD Ot Z98.890 OTHER SPECIFIED POSTPROCEDURAL STATES 01/26/2017 HERMAN TEJEDA MD Ot E78. 5 HYPERLIPIDEMIA, UNSPECIFIED 01/26/2017 HERMAN TEJEDA MD Ot F41. 8 OTHER SPECIFIED ANXIETY DISORDERS 01/26/2017 HERMAN TEJEDA MD Ot I10 ESSENTIAL (PRIMARY) HYPERTENSION 01/26/2017 HERMAN TEJEDA MD Ot I25. 10 ATHSCL HEART DISEASE OF [place] CORONARY 01/26/2017 HERMAN TEJEDA MD Ot I48. 0 PAROXYSMAL ATRIAL FIBRILLATION 01/26/2017 HERMAN TEJEDA MD Ot R07. 89 OTHER CHEST PAIN 01/26/2017 HERMAN TEJEDA MD Ot Z79.899 OTHER SENIOR TECHNICAL SPECIALIST (CURRENT) DRUG THERAPY 01/26/2017 HERMAN TEJEDA MD Ot Z95. 5 PRESENCE OF CORONARY ANGIOPLASTY IMPLANT 02/21/2017 FIDELIA BOOTH Ot I48.91 UNSPECIFIED ATRIAL FIBRILLATION 02/25/2017 HERMAN TEJEDA MD Ot Z48.812 ENCNTR FOR SURGICAL AFTCR FOLLOWING SURG 02/25/2017 HERMAN TEJEDA MD Ot Z95. 5 PRESENCE OF CORONARY ANGIOPLASTY IMPLANT 02/27/2017 HERMAN TEJEDA MD Ot Z48.812 ENCNTR FOR SURGICAL AFTCR FOLLOWING SURG 02/27/2017 HERMAN TEJEDA MD Ot Z95. 5 PRESENCE OF CORONARY ANGIOPLASTY IMPLANT 02/27/2017 HERMAN TEJEDA MD Ot Z48.812 ENCNTR FOR SURGICAL AFTCR FOLLOWING SURG 02/27/2017 HERMAN TEJEDA MD Ot Z95. 5 PRESENCE OF CORONARY ANGIOPLASTY IMPLANT 02/28/2017 HERMAN TEJEDA MD Ot Z48.812 ENCNTR FOR SURGICAL AFTCR FOLLOWING SURG 02/28/2017 HERMAN TEJEDA MD Ot Z95. 5 PRESENCE OF CORONARY ANGIOPLASTY IMPLANT 03/25/2017 HERMAN TEJEDA MD Ot Z48.812 ENCNTR FOR SURGICAL AFTCR FOLLOWING SURG 03/25/2017 HERMAN TEJEDA MD Ot Z95. 5 PRESENCE OF CORONARY ANGIOPLASTY IMPLANT 03/30/2017 Ot 719.45 NALINI NT PAIN-PELVIS 03/30/2017 GILDA BARNES MD Ot V72.84 EXAM PRE-OPERATIVE NOS 03/30/2017 ADRY KIRK, JENNIFER [place] Ot V71.2 OBSERV-SUSPECT TB 03/30/2017 GILDA BARNES MD Ot V72.84 EXAM PRE-OPERATIVE NOS 03/30/2017 HERMAN TEJEDA MD Ot 311 DEPRESSIVE DISORDER NEC 03/30/2017 HERMAN TEJEDA MD Ot 401. 9 HYPERTENSION NOS 03/30/2017 HERMAN TEJEDA MD Ot 786. 09 RESPIRATORY ABNORM NEC 03/30/2017 HERMAN TEJEDA MD Ot 786. 50 CHEST PAIN NOS 03/30/2017 HERMAN TEJEDA MD Ot 311 DEPRESSIVE DISORDER NEC 03/30/2017 HERMAN TEJEDA MD Ot 401. 9 HYPERTENSION NOS 03/30/2017 HERMAN TEJEDA MD Ot 786. 09 RESPIRATORY ABNORM NEC 03/30/2017 HERMAN TEJEDA MD Ot 786. 50 CHEST PAIN NOS 03/30/2017 HERMAN TEJEDA MD Ot F32. 9 MAJOR DEPRESSIVE DISORDER, SINGLE EPISOD 03/30/2017 HERMAN TEJEDA MD Ot I10 ESSENTIAL (PRIMARY) HYPERTENSION 03/30/2017 HERMAN TEJEDA MD Ot R00. 2 PALPITATIONS 03/30/2017 HERMAN TEJEDA MD Ot R06. 00 DYSPNEA, UNSPECIFIED 03/30/2017 SUREKHA JOSHI MD Ot F17.210 NICOTINE DEPENDENCE, CIGARETTES, UNCOMPL 03/30/2017 SUREKHA JOSHI MD Ot I10 ESSENTIAL (PRIMARY) HYPERTENSION 03/30/2017 SUREKHA JOSHI MD Ot R06.02 SHORTNESS OF BREATH 03/30/2017 SUREKHA JOSHI MD Ot R07 .9 CHEST PAIN, UNSPECIFIED 03/30/2017 SUREKHA JOSHI MD Ot R42 DIZZINESS AND GIDDINESS 03/30/2017 FIDELIA BOOTH Ot I48.91 UNSPECIFIED ATRIAL FIBRILLATION 03/30/2017 HERMAN TEJEDA MD Ot Z48.812 ENCNTR FOR SURGICAL AFTCR FOLLOWING SURG 03/30/2017 HERMAN TEJEDA MD Ot Z95. 5 PRESENCE OF CORONARY ANGIOPLASTY IMPLANT 07/23/2018 GILDA BARNES MD Ot V72.84 EXAM PRE-OPERATIVE NOS 07/23/2018 ADRY KIRK, JENNIFER [place] Ot V71.2 OBSERV-SUSPECT TB 07/23/2018 GILDA BARNES MD Ot V72.84 EXAM PRE-OPERATIVE NOS 07/23/2018 HERMAN TEJEDA MD Ot 311 DEPRESSIVE DISORDER NEC 07/23/2018 HERMAN TEJEDA MD Ot 401. 9 HYPERTENSION NOS 07/23/2018 HERMAN TEJEDA MD Ot 786. 09 RESPIRATORY ABNORM NEC 07/23/2018 HERMAN TEJEDA MD Ot 786. 50 CHEST PAIN NOS 07/23/2018 HERMAN TEJEDA MD Ot 311 DEPRESSIVE DISORDER NEC 07/23/2018 HERMAN TEJEDA MD Ot 401. 9 HYPERTENSION NOS 07/23/2018 HERMAN TEJEDA MD Ot 786. 09 RESPIRATORY ABNORM NEC 07/23/2018 HERMAN TEJEDA MD Ot 786. 50 CHEST PAIN NOS 07/23/2018 HERMAN TEJEDA MD Ot F32. 9 MAJOR DEPRESSIVE DISORDER, SINGLE EPISOD 07/23/2018 HERMAN TEJEDA MD Ot I10 ESSENTIAL (PRIMARY) HYPERTENSION 07/23/2018 HERMAN TEJEDA MD Ot R00. 2 PALPITATIONS 07/23/2018 HERMAN TEJEDA MD Ot R06. 00 DYSPNEA, UNSPECIFIED 07/23/2018 SUREKHA JOSHI MD Ot F17.210 NICOTINE DEPENDENCE, CIGARETTES, UNCOMPL 07/23/2018 SUREKHA JOSHI MD Ot I10 ESSENTIAL (PRIMARY) HYPERTENSION 07/23/2018 SUREKHA JOSHI MD Ot R06.02 SHORTNESS OF BREATH 07/23/2018 SUREKHA JOSHI MD Ot R07 .9 CHEST PAIN, UNSPECIFIED 07/23/2018 SUREKHA JOSHI MD Ot R42 DIZZINESS AND GIDDINESS 07/23/2018 FIDELIA BOOTH Ot I48.91 UNSPECIFIED ATRIAL FIBRILLATION 07/23/2018 HERMAN TEJEDA MD Ot Z48.812 ENCNTR FOR SURGICAL AFTCR FOLLOWING SURG 07/23/2018 HERMAN TEJEDA MD Ot Z95. 5 PRESENCE OF CORONARY ANGIOPLASTY IMPLANT 07/25/2018 GILDA BARNES MD Ot V72.84 EXAM PRE-OPERATIVE NOS 07/25/2018 ADRY KRIK, JENNIFER [place] Ot V71.2 OBSERV-SUSPECT TB 07/25/2018 GILDA BARNES MD Ot V72.84 EXAM PRE-OPERATIVE NOS 07/25/2018 HERMAN TEJEDA MD Ot 311 DEPRESSIVE DISORDER NEC 07/25/2018 HERMAN TEJEDA MD Ot 401. 9 HYPERTENSION NOS 07/25/2018 HERMAN TEJEDA MD Ot 786. 09 RESPIRATORY ABNORM NEC 07/25/2018 HERMAN TEJEDA MD Ot 786. 50 CHEST PAIN NOS 07/25/2018 HERMAN TEJEDA MD Ot 311 DEPRESSIVE DISORDER NEC 07/25/2018 HERMAN ETJEDA MD Ot 401. 9 HYPERTENSION NOS 07/25/2018 HERMAN TEJEDA MD Ot 786. 09 RESPIRATORY ABNORM NEC 07/25/2018 HERMAN TEJEDA MD Ot 786. 50 CHEST PAIN NOS 07/25/2018 HERMAN TEJEDA MD Ot F32. 9 MAJOR DEPRESSIVE DISORDER, SINGLE EPISOD 07/25/2018 HERMAN TEJEDA MD Ot I10 ESSENTIAL (PRIMARY) HYPERTENSION 07/25/2018 HERMAN TEJEDA MD Ot R00. 2 PALPITATIONS 07/25/2018 HERMAN TEJEDA MD Ot R06. 00 DYSPNEA, UNSPECIFIED 07/25/2018 SUREKHA JOSHI MD Ot F17.210 NICOTINE DEPENDENCE, CIGARETTES, UNCOMPL 07/25/2018 SUREKHA JOSHI MD Ot I10 ESSENTIAL (PRIMARY) HYPERTENSION 07/25/2018 SUREKHA JOSHI MD Ot R06.02 SHORTNESS OF BREATH 07/25/2018 SUREKHA JOSHI MD Ot R07 .9 CHEST PAIN, UNSPECIFIED 07/25/2018 SUREKHA JOSHI MD Ot R42 DIZZINESS AND GIDDINESS 07/25/2018 FIDELIA BOOTH Ot I48.91 UNSPECIFIED ATRIAL FIBRILLATION 07/25/2018 HERMAN TEJEDA MD Ot Z48.812 ENCNTR FOR SURGICAL AFTCR FOLLOWING SURG 07/25/2018 HERMAN TEJEDA MD Ot Z95. 5 PRESENCE OF CORONARY ANGIOPLASTY IMPLANT 07/25/2018 FIDELIA BOOTH Ot M41.86 OTHER FORMS OF SCOLIOSIS, LUMBAR REGION 07/25/2018 BOOTH, FIDELIA M JOB DEVELOPER FOR [employer] Ot M43.16 SPONDYLOLISTHESIS, LUMBAR REGION 07/25/2018 BOOTHFIDELIA JOB DEVELOPER FOR [employer] Ot M46.86 OTHER SPECIFIED INFLAMMATORY SPONDYLOPAT 07/25/2018 EMMYFIDELIA JOB DEVELOPER FOR [employer] Ot M48.07 SPINAL STENOSIS, LUMBOSACRAL REGION 07/25/2018 FIDELIA BOOTH JOB DEVELOPER FOR [employer] Ot M51.27 OTHER INTERVERTEBRAL DISC DISPLACEMENT, 07/25/2018 EMMYFIDELIA JOB DEVELOPER FOR [employer] Ot M51.37 OTHER INTERVERTEBRAL DISC DEGENERATION, 07/25/2018 BOOTHFIDELIA JOB DEVELOPER FOR [employer] Ot M71.38 OTHER BURSAL CYST, OTHER SITE 07/30/2018 CAMERON KIRK, GILDA Ot V72.84 EXAM PRE-OPERATIVE NOS 07/30/2018 ADRY KIRK, JENNIFER [place] Ot V71.2 OBSERV-SUSPECT TB 07/30/2018 CAMERON KIRK, GILDA Ot V72.84 EXAM PRE-OPERATIVE NOS 07/30/2018 HERMAN TEJEDA MD Ot 311 DEPRESSIVE DISORDER NEC 07/30/2018 HERMAN TEJEDA MD Ot 401. 9 HYPERTENSION NOS 07/30/2018 HERMAN TEJEDA MD Ot 786. 09 RESPIRATORY ABNORM NEC 07/30/2018 HERMAN TEJEDA MD Ot 786. 50 CHEST PAIN NOS 07/30/2018 HERMAN TEJEDA MD Ot 311 DEPRESSIVE DISORDER NEC 07/30/2018 HERMAN TEJEDA MD Ot 401. 9 HYPERTENSION NOS 07/30/2018 HERMAN TEJEDA MD Ot 786. 09 RESPIRATORY ABNORM NEC 07/30/2018 HERMAN TEJEDA MD Ot 786. 50 CHEST PAIN NOS 07/30/2018 HERMAN TEJEDA MD Ot F32. 9 MAJOR DEPRESSIVE DISORDER, SINGLE EPISOD 07/30/2018 HERMAN TEJEDA MD Ot I10 ESSENTIAL (PRIMARY) HYPERTENSION 07/30/2018 HERMAN TEJEDA MD Ot R00. 2 PALPITATIONS 07/30/2018 HERMAN TEJEDA MD Ot R06. 00 DYSPNEA, UNSPECIFIED 07/30/2018 SUREKHA JOSHI MD Ot F17.210 NICOTINE DEPENDENCE, CIGARETTES, UNCOMPL 07/30/2018 SUREKHA JOSHI MD Ot I10 ESSENTIAL (PRIMARY) HYPERTENSION 07/30/2018 SUREKHA JOSHI MD Ot R06.02 SHORTNESS OF BREATH 07/30/2018 SUREKHA JOSHI MD Ot R07 .9 CHEST PAIN, UNSPECIFIED 07/30/2018 SUREKHA JOSHI MD Ot R42 DIZZINESS AND GIDDINESS 07/30/2018 FIDELIA BOOTHP Ot I48.91 UNSPECIFIED ATRIAL FIBRILLATION 07/30/2018 HERMAN TEJEDA MD Ot Z48.812 ENCNTR FOR SURGICAL AFTCR FOLLOWING SURG 07/30/2018 HERMAN TEJEDA MD Ot Z95. 5 PRESENCE OF CORONARY ANGIOPLASTY IMPLANT 07/30/2018 FIDELIA BOOTH JOB DEVELOPER FOR [employer] Ot M41.86 OTHER FORMS OF SCOLIOSIS, LUMBAR REGION 07/30/2018 FIDELIA BOOTH JOB DEVELOPER FOR [employer] Ot M43.16 SPONDYLOLISTHESIS, LUMBAR REGION 07/30/2018 FIDELIA BOOTH JOB DEVELOPER FOR [employer] Ot M46.86 OTHER SPECIFIED INFLAMMATORY SPONDYLOPAT 07/30/2018 FIDELIA BOOTH JOB DEVELOPER FOR [employer] Ot M48.07 SPINAL STENOSIS, LUMBOSACRAL REGION 07/30/2018 FIDELIA BOOTH JOB DEVELOPER FOR [employer] Ot M51.27 OTHER INTERVERTEBRAL DISC DISPLACEMENT, 07/30/2018 FIDELIA BOOTH JOB DEVELOPER FOR [employer] Ot M51.37 OTHER INTERVERTEBRAL DISC DEGENERATION, 07/30/2018 FIDELIA BOOTH JOB DEVELOPER FOR [employer] Ot M71.38 OTHER BURSAL CYST, OTHER SITE 07/30/2018 Ot 719.45 NALINI NT PAIN-PELVIS 07/30/2018 GILDA BARNES MD Ot V72.84 EXAM PRE-OPERATIVE NOS 07/30/2018 ADRY KIRK, JENNIFER [place] Ot V71.2 OBSERV-SUSPECT TB 07/30/2018 GILDA BARNES MD Ot V72.84 EXAM PRE-OPERATIVE NOS 07/30/2018 HERMAN TEJEDA MD Ot 311 DEPRESSIVE DISORDER NEC 07/30/2018 HERMAN TEJEDA MD Ot 401. 9 HYPERTENSION NOS 07/30/2018 HERMAN TEJEDA MD Ot 786. 09 RESPIRATORY ABNORM NEC 07/30/2018 HERMAN TEJEDA MD Ot 786. 50 CHEST PAIN NOS 07/30/2018 HERMAN TEJEDA MD Ot 311 DEPRESSIVE DISORDER NEC 07/30/2018 HERMAN TEJEDA MD Ot 401. 9 HYPERTENSION NOS 07/30/2018 HERMAN TEJEDA MD Ot 786. 09 RESPIRATORY ABNORM NEC 07/30/2018 HERMAN TEJEDA MD Ot 786. 50 CHEST PAIN NOS 07/30/2018 HERMAN TEJEDA MD Ot F32. 9 MAJOR DEPRESSIVE DISORDER, SINGLE EPISOD 07/30/2018 HERMAN TEJEDA MD Ot I10 ESSENTIAL (PRIMARY) HYPERTENSION 07/30/2018 HERMAN TEJEDA MD Ot R00. 2 PALPITATIONS 07/30/2018 HERMAN TEJEDA MD Ot R06. 00 DYSPNEA, UNSPECIFIED 07/30/2018 SUREKHA JOSHI MD Ot F17.210 NICOTINE DEPENDENCE, CIGARETTES, UNCOMPL 07/30/2018 SUREKHA JOSHI MD Ot I10 ESSENTIAL (PRIMARY) HYPERTENSION 07/30/2018 SUREKHA JOSHI MD Ot R06.02 SHORTNESS OF BREATH 07/30/2018 SUREKHA JOSHI MD Ot R07 .9 CHEST PAIN, UNSPECIFIED 07/30/2018 SUREKHA JOSHI MD Ot R42 DIZZINESS AND GIDDINESS 07/30/2018 FIDELIA BOOTHP Ot I48.91 UNSPECIFIED ATRIAL FIBRILLATION 07/30/2018 HERMAN TEJEDA MD Ot Z48.812 ENCNTR FOR SURGICAL AFTCR FOLLOWING SURG 07/30/2018 HERMAN TEJEDA MD Ot Z95. 5 PRESENCE OF CORONARY ANGIOPLASTY IMPLANT 07/30/2018 FIDELIA BOOTHP Ot M41.86 OTHER FORMS OF SCOLIOSIS, LUMBAR REGION 07/30/2018 FIDELIA BOOTHP Ot M43.16 SPONDYLOLISTHESIS, LUMBAR REGION 07/30/2018 FIDELIA BOOTHP Ot M46.86 OTHER SPECIFIED INFLAMMATORY SPONDYLOPAT 07/30/2018 FIDELIA BOOTHP Ot M48.07 SPINAL STENOSIS, LUMBOSACRAL REGION 07/30/2018 FIDELIA BOOTHP Ot M51.27 OTHER INTERVERTEBRAL DISC DISPLACEMENT, 07/30/2018 FIDELIA BOOTHP Ot M51.37 OTHER INTERVERTEBRAL DISC DEGENERATION, 07/30/2018 FIDELIA BOOTHP Ot M71.38 OTHER BURSAL CYST, OTHER SITE 07/31/2018 FIDELIA BOOTH JOB DEVELOPER FOR [employer] Ot M41.86 OTHER FORMS OF SCOLIOSIS, LUMBAR REGION 07/31/2018 FIDELIA BOOTH JOB DEVELOPER FOR [employer] Ot M43.16 SPONDYLOLISTHESIS, LUMBAR REGION 07/31/2018 BOOTH, FIDELIA M JOB DEVELOPER FOR [employer]ULTS Ot M46.86 OTHER SPECIFIED INFLAMMATORY SPONDYLOPAT 07/31/2018 FIDELIA BOOTH JOB DEVELOPER FOR [employer] Ot M48.07 SPINAL STENOSIS, LUMBOSACRAL REGION 07/31/2018 FIDELIA BOOTH JOB DEVELOPER FOR [employer] Ot M51.27 OTHER INTERVERTEBRAL DISC DISPLACEMENT, 07/31/2018 FIDELIA BOOTH JOB DEVELOPER FOR [employer] Ot M51.37 OTHER INTERVERTEBRAL DISC DEGENERATION, 07/31/2018 FIDELIA BOOTH JOB DEVELOPER FOR [employer] Ot M71.38 OTHER BURSAL CYST, OTHER SITE 08/20/2018 FIDELIA BOOTH JOB DEVELOPER FOR [employer] Ot M41.86 OTHER FORMS OF SCOLIOSIS, LUMBAR REGION 08/20/2018 FIDELIA BOOTH JOB DEVELOPER FOR [employer] Ot M43.16 SPONDYLOLISTHESIS, LUMBAR REGION 08/20/2018 FIDELIA BOOTH [employer] Ot M46.86 OTHER SPECIFIED INFLAMMATORY SPONDYLOPAT 08/20/2018 FIDELIA BOOTH [employer] Ot M48.07 SPINAL STENOSIS, LUMBOSACRAL REGION 08/20/2018 FIDELIA BOOTH [employer] Ot M51.27 OTHER INTERVERTEBRAL DISC DISPLACEMENT, 08/20/2018 FIDELIA BOOTH [employer] Ot M51.37 OTHER INTERVERTEBRAL DISC DEGENERATION, 08/20/2018 FIDELIA BOOTH [employer] Ot M71.38 OTHER BURSAL CYST, OTHER SITE 09/18/2018 KENNETH ANTONIO MD Ot M47.8 96 OTHER SPONDYLOSIS, LUMBAR REGION 09/18/2018 KENNETH ANTONIO MD Ot M51.3 6 OTHER INTERVERTEBRAL DISC DEGENERATION, 10/18/2018 KENNETH ANTONIO MD Ot M47.8 96 OTHER SPONDYLOSIS, LUMBAR REGION 10/18/2018 KENNETH ANTONIO MD Ot M51.3 6 OTHER INTERVERTEBRAL DISC DEGENERATION, 10/25/2018 KENNETH ANTONIO MD Ot M47.8 96 OTHER SPONDYLOSIS, LUMBAR REGION 10/25/2018 KENNETH ANTONIO MD Ot M51.3 6 OTHER INTERVERTEBRAL DISC DEGENERATION, 07/04/2019 CAMERON KIRK, GILDA Ot V72.84 EXAM PRE-OPERATIVE NOS 07/04/2019 HERMAN TEJEDA MD Ot 311 DEPRESSIVE DISORDER NEC 07/04/2019 HERMAN TEJEDA MD Ot 401. 9 HYPERTENSION NOS 07/04/2019 HERMAN TEJEDA MD Ot 786. 09 RESPIRATORY ABNORM NEC 07/04/2019 HERMAN TEJEDA MD Ot 786. 50 CHEST PAIN NOS 07/04/2019 HERMAN TEJEDA MD Ot 311 DEPRESSIVE DISORDER NEC 07/04/2019 HERMAN TEJEDA MD Ot 401. 9 HYPERTENSION NOS 07/04/2019 HERMAN TEJEDA MD Ot 786. 09 RESPIRATORY ABNORM NEC 07/04/2019 HERMAN TEJEDA MD Ot 786. 50 CHEST PAIN NOS 07/04/2019 HERMAN TEJEDA MD Ot F32. 9 MAJOR DEPRESSIVE DISORDER, SINGLE EPISOD 07/04/2019 HERMAN TEJEDA MD Ot I10 ESSENTIAL (PRIMARY) HYPERTENSION 07/04/2019 HERMAN TEJEDA MD Ot R00. 2 PALPITATIONS 07/04/2019 HERMAN TEJEDA MD Ot R06. 00 DYSPNEA, UNSPECIFIED 07/04/2019 SUREKHA JOSHI MD Ot F17.210 NICOTINE DEPENDENCE, CIGARETTES, UNCOMPL 07/04/2019 SUREKHA JOSHI MD Ot I10 ESSENTIAL (PRIMARY) HYPERTENSION 07/04/2019 SUREKHA JOSHI MD Ot R06.02 SHORTNESS OF BREATH 07/04/2019 SUREKHA JOSHI MD Ot R07 .9 CHEST PAIN, UNSPECIFIED 07/04/2019 SUREKHA JOSHI MD Ot R42 DIZZINESS AND GIDDINESS 07/04/2019 FIDELIA BOOTH Ot I48.91 UNSPECIFIED ATRIAL FIBRILLATION 07/04/2019 HERMAN TEJEDA MD Ot Z48.812 ENCNTR FOR SURGICAL AFTCR FOLLOWING SURG 07/04/2019 HERMAN TEJEDA MD Ot Z95. 5 PRESENCE OF CORONARY ANGIOPLASTY IMPLANT 07/04/2019 FIDELIA BOOTHP Ot M41.86 OTHER FORMS OF SCOLIOSIS, LUMBAR REGION 07/04/2019 FIDELIA BOOTHP Ot M43.16 SPONDYLOLISTHESIS, LUMBAR REGION 07/04/2019 FIDELIA BOOTHP Ot M46.86 OTHER SPECIFIED INFLAMMATORY SPONDYLOPAT 07/04/2019 FIDELIA BOOTHP Ot M48.07 SPINAL STENOSIS, LUMBOSACRAL REGION 07/04/2019 FIDELIA BOOTH [employer] Ot M51.27 OTHER INTERVERTEBRAL DISC DISPLACEMENT, 07/04/2019 FIDELIA BOOTHP Ot M51.37 OTHER INTERVERTEBRAL DISC DEGENERATION, 07/04/2019 FIDELIA BOOTH Ot M71.38 OTHER BURSAL CYST, OTHER SITE 07/05/2019 CAMERON KIRK, GILDA Ot V72.84 EXAM PRE-OPERATIVE NOS 07/05/2019 ILEANA KIRK, HERMAN [place] Ot 311 DEPRESSIVE DISORDER NEC 07/05/2019 HERMAN TEJEDA MD Ot 401. 9 HYPERTENSION NOS 07/05/2019 HERMAN TEJEDA MD Ot 786. 09 RESPIRATORY ABNORM NEC 07/05/2019 ILEANA KIRK, HERMAN [place] Ot 786. 50 CHEST PAIN NOS 07/05/2019 HERMAN TEJEDA MD Ot 311 DEPRESSIVE DISORDER NEC 07/05/2019 ILEANA KIRK, HERMAN [place] Ot 401. 9 HYPERTENSION NOS 07/05/2019 HERMAN TEJEDA MD Ot 786. 09 RESPIRATORY ABNORM NEC 07/05/2019 ILEANA KIRK, HERMAN [place] Ot 786. 50 CHEST PAIN NOS 07/05/2019 HERMAN TEJEDA MD Ot F32. 9 MAJOR DEPRESSIVE DISORDER, SINGLE EPISOD 07/05/2019 HERMAN TEJEDA MD Ot I10 ESSENTIAL (PRIMARY) HYPERTENSION 07/05/2019 HERMAN TEJEDA MD Ot R00. 2 PALPITATIONS 07/05/2019 HERMAN TEJEDA MD Ot R06. 00 DYSPNEA, UNSPECIFIED 07/05/2019 SUREKHA JOSHI MD Ot F17.210 NICOTINE DEPENDENCE, CIGARETTES, UNCOMPL 07/05/2019 SUREKHA JOSHI MD Ot I10 ESSENTIAL (PRIMARY) HYPERTENSION 07/05/2019 SUREKHA JOSHI MD Ot R06.02 SHORTNESS OF BREATH 07/05/2019 SUREKHA JOSHI MD Ot R07 .9 CHEST PAIN, UNSPECIFIED 07/05/2019 SUREKHA JOSHI MD Ot R42 DIZZINESS AND GIDDINESS 07/05/2019 FIDELIA BOOTH Ot I48.91 UNSPECIFIED ATRIAL FIBRILLATION 07/05/2019 HERMAN TEJEDA MD Ot Z48.812 ENCNTR FOR SURGICAL AFTCR FOLLOWING SURG 07/05/2019 HERMAN TEJEDA MD Ot Z95. 5 PRESENCE OF CORONARY ANGIOPLASTY IMPLANT 07/05/2019 FIDELIA BOOTH Ot M41.86 OTHER FORMS OF SCOLIOSIS, LUMBAR REGION 07/05/2019 BOOTH, FIDELIA M [employer] Ot M43.16 SPONDYLOLISTHESIS, LUMBAR REGION 07/05/2019 EMMY FIDELIA M JOB DEVELOPER [employer] Ot M46.86 OTHER SPECIFIED INFLAMMATORY SPONDYLOPAT 07/05/2019 EMMY FIDELIA M JOB DEVELOPER [employer] Ot M48.07 SPINAL STENOSIS, LUMBOSACRAL REGION 07/05/2019 EMMY FIDELIA M JOB DEVELOPER [employer] Ot M51.27 OTHER INTERVERTEBRAL DISC DISPLACEMENT, 07/05/2019 EMMY FIDELIA M JOB DEVELOPER [employer] Ot M51.37 OTHER INTERVERTEBRAL DISC DEGENERATION, 07/05/2019 EMMY FIDELIA M JOB DEVELOPER [employer] Ot M71.38 OTHER BURSAL CYST, OTHER SITE 07/08/2019 CAMERON KIRK, GILDA Ot V72.84 EXAM PRE-OPERATIVE NOS 07/08/2019 ILEANA KIRK, HERMAN Noonan Ot 311 DEPRESSIVE DISORDER NEC 07/08/2019 ILEANA KIRK, HERMAN Noonan Ot 401. 9 HYPERTENSION NOS 07/08/2019 HERMAN TEJEDA MD Ot 786. 09 RESPIRATORY ABNORM NEC 07/08/2019 HERMAN TEJEDA MD Ot 786. 50 CHEST PAIN NOS 07/08/2019 HERMAN TEJEDA MD Ot 311 DEPRESSIVE DISORDER NEC 07/08/2019 HERMAN TEJEDA MD Ot 401. 9 HYPERTENSION NOS 07/08/2019 HERMAN TEJEDA MD Ot 786. 09 RESPIRATORY ABNORM NEC 07/08/2019 ILEANA KIRK, HERMAN Noonan Ot 786. 50 CHEST PAIN NOS 07/08/2019 HERMAN TEJEDA MD Ot F32. 9 MAJOR DEPRESSIVE DISORDER, SINGLE EPISOD 07/08/2019 HERMAN TEJEDA MD Ot I10 ESSENTIAL (PRIMARY) HYPERTENSION 07/08/2019 HERMAN TEJEDA MD Ot R00. 2 PALPITATIONS 07/08/2019 HERMAN TEJEDA MD Ot R06. 00 DYSPNEA, UNSPECIFIED 07/08/2019 SUREKHA JOSHI MD Ot F17.210 NICOTINE DEPENDENCE, CIGARETTES, UNCOMPL 07/08/2019 SUREKHA JOSHI MD Ot I10 ESSENTIAL (PRIMARY) HYPERTENSION 07/08/2019 SUREKHA JOSHI MD Ot R06.02 SHORTNESS OF BREATH 07/08/2019 SUREKHA JOSHI MD Ot R07 .9 CHEST PAIN, UNSPECIFIED 07/08/2019 SUREKHA JOSHI MD Ot R42 DIZZINESS AND GIDDINESS 07/08/2019 FIDELIA BOOTH J[employer] DEVELOPER [employer] Ot I48.91 UNSPECIFIED ATRIAL FIBRILLATION 07/08/2019 HERMAN TEJEDA MD Ot Z48.812 ENCNTR FOR SURGICAL AFTCR FOLLOWING SURG 07/08/2019 HERMAN TEJEDA MD Ot Z95. 5 PRESENCE OF CORONARY ANGIOPLASTY IMPLANT 07/08/2019 FIDELIA BOOTH J[employer] DEVELOPER [employer] Ot M41.86 OTHER FORMS OF SCOLIOSIS, LUMBAR REGION 07/08/2019 FIDELIA BOOTH JOB DEVELOPER [employer] Ot M43.16 SPONDYLOLISTHESIS, LUMBAR REGION 07/08/2019 FIDELIA BOOTH JOB DEVELOPER [employer] Ot M46.86 OTHER SPECIFIED INFLAMMATORY SPONDYLOPAT 07/08/2019 FIDELIA BOOTH JOB DEVELOPER [employer] Ot M48.07 SPINAL STENOSIS, LUMBOSACRAL REGION 07/08/2019 FIDELIA BOOTH JOB DEVELOPER FOR [employer] Ot M51.27 OTHER INTERVERTEBRAL DISC DISPLACEMENT, 07/08/2019 FIDELIA BOOTH JOB DEVELOPER FOR [employer] Ot M51.37 OTHER INTERVERTEBRAL DISC DEGENERATION, 07/08/2019 FIDELIA BOOTH JOB DEVELOPER FOR [employer] Ot M71.38 OTHER BURSAL CYST, OTHER SITE 07/08/2019 CAMERON KIRK, GILDA Ot V72.84 EXAM PRE-OPERATIVE NOS 07/08/2019 HERMAN TEJEDA MD Ot 311 DEPRESSIVE DISORDER NEC 07/08/2019 HERMAN TEJEDA MD Ot 401. 9 HYPERTENSION NOS 07/08/2019 HERMAN TEJEDA MD Ot 786. 09 RESPIRATORY ABNORM NEC 07/08/2019 HERMAN TEJEDA MD Ot 786. 50 CHEST PAIN NOS 07/08/2019 HERMAN TEJEDA MD Ot 311 DEPRESSIVE DISORDER NEC 07/08/2019 HERMAN TEJEDA MD Ot 401. 9 HYPERTENSION NOS 07/08/2019 HERMAN TEJEDA MD Ot 786. 09 RESPIRATORY ABNORM NEC 07/08/2019 HERMAN TEJEDA MD Ot 786. 50 CHEST PAIN NOS 07/08/2019 HERMAN TEJEDA MD Ot F32. 9 MAJOR DEPRESSIVE DISORDER, SINGLE EPISOD 07/08/2019 HERMAN TEJEDA MD Ot I10 ESSENTIAL (PRIMARY) HYPERTENSION 07/08/2019 HERMAN TEJEDA MD Ot R00. 2 PALPITATIONS 07/08/2019 HERMAN TEJEDA MD Ot R06. 00 DYSPNEA, UNSPECIFIED 07/08/2019 MADELYN KIRK, SUREKHA Almanza Ot F17.210 NICOTINE DEPENDENCE, CIGARETTES, UNCOMPL 07/08/2019 SUREKHA JOSHI MD Ot I10 ESSENTIAL (PRIMARY) HYPERTENSION 07/08/2019 SUREKHA JOSHI MD Ot R06.02 SHORTNESS OF BREATH 07/08/2019 SUREKHA JOSHI MD Ot R07 .9 CHEST PAIN, UNSPECIFIED 07/08/2019 SUREKHA JOSHI MD Ot R42 DIZZINESS AND GIDDINESS 07/08/2019 FIDELIA BOOTH Ot I48.91 UNSPECIFIED ATRIAL FIBRILLATION 07/08/2019 HERMAN TEJEDA MD, Ot Z48.812 ENCNTR FOR SURGICAL AFTCR FOLLOWING SURG 07/08/2019 HERMAN TEJEDA MD, Ot Z95. 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 10 ATHSCL HEART DISEASE OF [place] CORONARY 07/09/2019 HERMAN TEJEDA MD Ot I36. 1 NONRHEUMATIC TRICUSPID (VALVE) INSUFFICI 07/25/2019 HERMAN TEJEDA MD Ot I11. 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 10 ATHSCL HEART DISEASE OF [place] CORONARY 07/25/2019 HERMAN TEJEDA MD Ot I36. 1 NONRHEUMATIC TRICUSPID (VALVE) INSUFFICI 08/07/2019 GILDA BARNES MD Ot V72.84 EXAM PRE-OPERATIVE NOS 08/07/2019 ILEANA KIRK, HERMAN Noonan Ot 311 DEPRESSIVE DISORDER NEC 08/07/2019 ILEANA KIRK, HERMAN Noonan Ot 401. 9 HYPERTENSION NOS 08/07/2019 ILEANA KIRK, HERMAN Noonan Ot 786. 09 RESPIRATORY ABNORM NEC 08/07/2019 ILEANA KIRK, HERMAN Noonan Ot 786. 50 CHEST PAIN NOS 08/07/2019 HERMAN TEJEDA MD Ot 311 DEPRESSIVE DISORDER NEC 08/07/2019 HERMAN TEJEDA MD Ot 401. 9 HYPERTENSION NOS 08/07/2019 ILEANA KIRK, HERMAN Noonan Ot 786. 09 RESPIRATORY ABNORM NEC 08/07/2019 ILEANA KIRK, HERMAN Noonan Ot 786. 50 CHEST PAIN NOS 08/07/2019 HERMAN TEJEDA MD Ot F32. 9 MAJOR DEPRESSIVE DISORDER, SINGLE EPISOD 08/07/2019 HERMAN TEJEDA MD Ot I10 ESSENTIAL (PRIMARY) HYPERTENSION 08/07/2019 HERMAN TEJEDA MD Ot R00. 2 PALPITATIONS 08/07/2019 HERMAN TEJEDA MD Ot R06. 00 DYSPNEA, UNSPECIFIED 08/07/2019 SUREKHA JOSHI MD Ot F17.210 NICOTINE DEPENDENCE, CIGARETTES, UNCOMPL 08/07/2019 SUREKHA JOSHI MD Ot I10 ESSENTIAL (PRIMARY) HYPERTENSION 08/07/2019 SUREKHA JOSHI MD Ot R06.02 SHORTNESS OF BREATH 08/07/2019 SUREKHA JOSHI MD Ot R07 .9 CHEST PAIN, UNSPECIFIED 08/07/2019 SUREKHA JOSHI MD Ot R42 DIZZINESS AND GIDDINESS 08/07/2019 FIDELIA BOOTH Ot I48.91 UNSPECIFIED ATRIAL FIBRILLATION 08/07/2019 HERMAN TEJEDA MD Ot Z48.812 ENCNTR FOR SURGICAL AFTCR FOLLOWING SURG 08/07/2019 HERMAN TEJEDA MD Ot Z95. 5 PRESENCE OF CORONARY ANGIOPLASTY IMPLANT 08/07/2019 FIDELIA BOOTHP Ot M41.86 OTHER FORMS OF SCOLIOSIS, LUMBAR REGION 08/07/2019 FIDELIA BOOTHP Ot M43.16 SPONDYLOLISTHESIS, LUMBAR REGION 08/07/2019 FIDELIA BOOTH JOB DEVELOPER FOR [employer] Ot M46.86 OTHER SPECIFIED INFLAMMATORY SPONDYLOPAT 08/07/2019 FIDELIA BOOTH JOB DEVELOPER FOR [employer] Ot M48.07 SPINAL STENOSIS, LUMBOSACRAL REGION 08/07/2019 BOOTHEVITAFIDELIA M JOB DEVELOPER FOR [employer] Ot M51.27 OTHER INTERVERTEBRAL DISC DISPLACEMENT, 08/07/2019 EMMY FIDELIA M JOB DEVELOPER FOR [employer] Ot M51.37 OTHER INTERVERTEBRAL DISC DEGENERATION, 08/07/2019 EMMYEVITAFIDELIA M JOB DEVELOPER FOR [employer] Ot M71.38 OTHER BURSAL CYST, OTHER SITE 08/07/2019 HERMAN TEJEDA MD Ot I10 ESSENTIAL (PRIMARY) HYPERTENSION 08/07/2019 HERMAN TEJEDA MD Ot I25. 10 ATHSCL HEART DISEASE OF [place] CORONARY 08/07/2019 HERMAN TEJEDA MD Ot R00. 2 PALPITATIONS 08/07/2019 HERMAN TEJEDA MD Ot R06. 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 10 ATHSCL HEART DISEASE OF [place] CORONARY 08/07/2019 HERMAN TEJEDA MD Ot I36. 1 NONRHEUMATIC TRICUSPID (VALVE) INSUFFICI 11/04/2019 GILDA BARNES MD Ot V72.84 EXAM PRE-OPERATIVE NOS 11/04/2019 HERMAN TEJEDA MD Ot 311 DEPRESSIVE DISORDER NEC 11/04/2019 HERMAN TEJEDA MD Ot 401. 9 HYPERTENSION NOS 11/04/2019 HERMAN TEJEDA MD Ot 786. 09 RESPIRATORY ABNORM NEC 11/04/2019 HERMAN TEJEDA MD Ot 786. 50 CHEST PAIN NOS 11/04/2019 HERMAN TEJEDA MD Ot 311 DEPRESSIVE DISORDER NEC 11/04/2019 HERMAN TEJEDA MD Ot 401. 9 HYPERTENSION NOS 11/04/2019 HERMAN TEJEDA MD Ot 786. 09 RESPIRATORY ABNORM NEC 11/04/2019 HERMAN TEJEDA MD Ot 786. 50 CHEST PAIN NOS 11/04/2019 HERMAN TEJEDA MD Ot F32. 9 MAJOR DEPRESSIVE DISORDER, SINGLE EPISOD 11/04/2019 HERMAN TEJEDA MD Ot I10 ESSENTIAL (PRIMARY) HYPERTENSION 11/04/2019 HERMAN TEJEDA MD Ot R00. 2 PALPITATIONS 11/04/2019 HERMAN TEJEDA MD Ot R06. 00 DYSPNEA, UNSPECIFIED 11/04/2019 SUREKHA JOSHI MD Ot F17.210 NICOTINE DEPENDENCE, CIGARETTES, UNCOMPL 11/04/2019 SUREKHA JOSHI MD Ot I10 ESSENTIAL (PRIMARY) HYPERTENSION 11/04/2019 SUREKHA JOSHI MD Ot R06.02 SHORTNESS OF BREATH 11/04/2019 SUREKHA JOSHI MD Ot R07 .9 CHEST PAIN, UNSPECIFIED 11/04/2019 SUREKHA JOSHI MD Ot R42 DIZZINESS AND GIDDINESS 11/04/2019 FIDELIA BOOTHP Ot I48.91 UNSPECIFIED ATRIAL FIBRILLATION 11/04/2019 HERMAN TEJEDA MD, Ot Z48.812 ENCNTR FOR SURGICAL AFTCR FOLLOWING SURG 11/04/2019 HERMAN TEJEDA MD Ot Z95. 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 10 ATHSCL HEART DISEASE OF [place] CORONARY 11/04/2019 HERMAN TEJEDA MD Ot R00. 2 PALPITATIONS 11/04/2019 HERMAN TEJEDA MD Ot R06. 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 10 ATHSCL HEART DISEASE OF [place] CORONARY 11/04/2019 HERMAN TEJEDA MD Ot I36. 1 NONRHEUMATIC TRICUSPID (VALVE) INSUFFICI 11/05/2019 CAMERON KIRK, GILDA Ot V72.84 EXAM PRE-OPERATIVE NOS 11/05/2019 HERMAN TEJEDA MD Ot 311 DEPRESSIVE DISORDER NEC 11/05/2019 HERMAN TEJEDA MD Ot 401. 9 HYPERTENSION NOS 11/05/2019 ILEANA KIRK, HERMAN Noonan Ot 786. 09 RESPIRATORY ABNORM NEC 11/05/2019 HERMAN TEJEDA MD Ot 786. 50 CHEST PAIN NOS 11/05/2019 HERMAN TEJEDA MD Ot 311 DEPRESSIVE DISORDER NEC 11/05/2019 HERMAN TEJEDA MD Ot 401. 9 HYPERTENSION NOS 11/05/2019 ILEANA KIRK, HERMAN Noonan Ot 786. 09 RESPIRATORY ABNORM NEC 11/05/2019 HERMAN TEJEDA MD Ot 786. 50 CHEST PAIN NOS 11/05/2019 HERMAN TEJEDA MD Ot F32. 9 MAJOR DEPRESSIVE DISORDER, SINGLE EPISOD 11/05/2019 HERMAN TEJEDA MD Ot I10 ESSENTIAL (PRIMARY) HYPERTENSION 11/05/2019 HERMAN TEJEDA MD Ot R00. 2 PALPITATIONS 11/05/2019 HERMAN TEJEDA MD Ot R06. 00 DYSPNEA, UNSPECIFIED 11/05/2019 SUREKHA JOSHI MD Ot F17.210 NICOTINE DEPENDENCE, CIGARETTES, UNCOMPL 11/05/2019 SUREKHA JOSHI MD Ot I10 ESSENTIAL (PRIMARY) HYPERTENSION 11/05/2019 SUREKHA JOSHI MD Ot R06.02 SHORTNESS OF BREATH 11/05/2019 SUREKHA JOSHI MD Ot R07 .9 CHEST PAIN, UNSPECIFIED 11/05/2019 SUREKHA JOSHI MD Ot R42 DIZZINESS AND GIDDINESS 11/05/2019 FIDELIA BOOTH Ot I48.91 UNSPECIFIED ATRIAL FIBRILLATION 11/05/2019 HERMAN TEJEDA MD Ot Z48.812 ENCNTR FOR SURGICAL AFTCR FOLLOWING SURG 11/05/2019 HERMAN TEJEDA MD Ot Z95. 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 10 ATHSCL HEART DISEASE OF [place] CORONARY 11/05/2019 HERMAN TEJEDA MD Ot R00. 2 PALPITATIONS 11/05/2019 HERMAN TEJEDA MD Ot R06. 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 10 ATHSCL HEART DISEASE OF [place] CORONARY 11/05/2019 HERMAN TEJEDA MD Ot I36. 1 NONRHEUMATIC TRICUSPID (VALVE) INSUFFICI 11/06/2019 HERMAN TEJEDA MD Ot E78. 5 HYPERLIPIDEMIA, UNSPECIFIED 11/06/2019 HERMAN TEJEDA MD Ot F32. 9 MAJOR DEPRESSIVE DISORDER, SINGLE EPISOD 11/06/2019 HERMAN TEJEDA MD Ot F41. 9 ANXIETY DISORDER, UNSPECIFIED 11/06/2019 HERMAN TEJEDA MD Ot I10 ESSENTIAL (PRIMARY) HYPERTENSION 11/06/2019 HERMAN TEJEDA MD Ot I25. 10 ATHSCL HEART DISEASE OF [place] CORONARY 11/06/2019 HERMAN TEJEDA MD Ot I48. 0 PAROXYSMAL ATRIAL FIBRILLATION 11/06/2019 HERMAN TEJEDA MD Ot K21. 9 GASTRO-ESOPHAGEAL REFLUX DISEASE WITHOUT 11/06/2019 HERMAN TEJEDA MD Ot Q21. 1 ATRIAL SEPTAL DEFECT 11/06/2019 HERMAN TJEEDA MD Ot Z79. 01 CORRECTION (CURRENT) USE OF ANTICOAGULANT 11/06/2019 HERMAN TEJEDA MD Ot Z79. 82 CORRECTION (CURRENT) USE OF ASPIRIN 11/06/2019 HERMAN TEJEDA MD, Ot Z79.899 OTHER SENIOR TECHNICAL SPECIALIST (CURRENT) DRUG THERAPY 11/06/2019 HERMAN TEJEDA MD Ot Z80. 3 FAMILY HISTORY OF MALIGNANT NEOPLASM OF 11/06/2019 HERMAN TEJEDA MD Ot Z83. 3 FAMILY HISTORY OF DIABETES MELLITUS 11/06/2019 HERMAN TEJEDA MD Ot Z88. 8 ALLERGY STATUS TO OT DRUG/MEDS/BIOL SUB 11/06/2019 EHRMAN TEJEDA MD Ot Z90. 49 ACQUIRED ABSENCE OF OTHER SPECIFIED PART 11/06/2019 HERMAN TEJEDA MD Ot Z90.710 ACQUIRED ABSENCE OF BOTH CERVIX AND UTER 11/06/2019 HERMAN TEJEDA MD Ot Z91.041 RADIOGRAPHIC DYE ALLERGY STATUS 11/07/2019 HERMAN TEJEDA MD Ot I48. 0 PAROXYSMAL ATRIAL FIBRILLATION 11/07/2019 HERMAN TEJEDA MD Ot Z01.818 ENCOUNTER FOR OTHER PREPROCEDURAL EXAMIN 11/07/2019 HERMAN TEJEDA MD Ot Z20.828 CONTACT W AND EXPOSURE TO OT VIRAL COMM 11/08/2019 HERMAN TEJEDA MD Ot E78. 5 HYPERLIPIDEMIA, UNSPECIFIED 11/08/2019 HERMAN TEJEDA MD Ot F32. 9 MAJOR DEPRESSIVE DISORDER, SINGLE EPISOD 11/08/2019 HERMAN TEJEDA MD Ot F41. 9 ANXIETY DISORDER, UNSPECIFIED 11/08/2019 HERMAN TEJEDA MD Ot I10 ESSENTIAL (PRIMARY) HYPERTENSION 11/08/2019 HERMAN TEJEDA MD Ot I25. 10 ATHSCL HEART DISEASE OF [place] CORONARY 11/08/2019 HERMAN TEJEDA MD Ot I48. 0 PAROXYSMAL ATRIAL FIBRILLATION 11/08/2019 HERMAN TEJEDA MD Ot K21. 9 GASTRO-ESOPHAGEAL REFLUX DISEASE WITHOUT 11/08/2019 HERMAN TEJEDA MD Ot Q21. 1 ATRIAL SEPTAL DEFECT 11/08/2019 HERMAN TEJEDA MD Ot Z79. 01 CORRECTION (CURRENT) USE OF ANTICOAGULANT 11/08/2019 HERMAN TEJEDA MD Ot Z79. 82 CORRECTION (CURRENT) USE OF ASPIRIN 11/08/2019 HERMAN TEJEDA MD Ot Z79.899 OTHER SENIOR TECHNICAL SPECIALIST (CURRENT) DRUG THERAPY 11/08/2019 HERMAN TEJEDA MD Ot Z80. 3 FAMILY HISTORY OF MALIGNANT NEOPLASM OF 11/08/2019 HERMAN TEJEDA MD Ot Z83. 3 FAMILY HISTORY OF DIABETES MELLITUS 11/08/2019 HERMAN TEJEDA MD Ot Z88. 8 ALLERGY STATUS TO OT DRUG/MEDS/BIOL SUB 11/08/2019 HERMAN TEJEDA MD Ot Z90. 49 ACQUIRED ABSENCE OF OTHER SPECIFIED PART 11/08/2019 HERMAN TEJEDA MD Ot Z90.710 ACQUIRED ABSENCE OF BOTH CERVIX AND UTER 11/08/2019 HERMAN TEJEDA MD Ot Z91.041 RADIOGRAPHIC DYE ALLERGY STATUS 11/08/2019 HERMAN TEJEDA MD Ot I48. 0 PAROXYSMAL ATRIAL FIBRILLATION 11/08/2019 HERMAN TEJEDA MD Ot Z01.818 ENCOUNTER FOR OTHER PREPROCEDURAL EXAMIN 11/08/2019 HERMAN TEJEDA MD Ot Z20.828 CONTACT W AND EXPOSURE TO OT VIRAL COMM 11/10/2019 HERMAN TEJEDA MD Ot E78. 5 HYPERLIPIDEMIA, UNSPECIFIED 11/10/2019 HERMAN TEJEDA MD Ot F32. 9 MAJOR DEPRESSIVE DISORDER, SINGLE EPISOD 11/10/2019 HERMAN TEJEDA MD Ot F41. 9 ANXIETY DISORDER, UNSPECIFIED 11/10/2019 HERMAN TEJEDA MD Ot I10 ESSENTIAL (PRIMARY) HYPERTENSION 11/10/2019 HERMAN TEJEDA MD Ot I25. 10 ATHSCL HEART DISEASE OF [place] CORONARY 11/10/2019 HERMAN TEJEDA MD Ot I48. 0 PAROXYSMAL ATRIAL FIBRILLATION 11/10/2019 HERMAN TEJEDA MD Ot K21. 9 GASTRO-ESOPHAGEAL REFLUX DISEASE WITHOUT 11/10/2019 HERMAN TEJEDA MD Ot Q21. 1 ATRIAL SEPTAL DEFECT 11/10/2019 HERMAN TEJEDA MD Ot Z79. 01 CORRECTION (CURRENT) USE OF ANTICOAGULANT 11/10/2019 HERMAN TEJEDA MD Ot Z79. 82 SENIOR TECHNICAL SPECIALIST (CURRENT) USE OF ASPIRIN 11/10/2019 HERMAN TEJEDA MD Ot Z79.899 OTHER SENIOR TECHNICAL SPECIALIST (CURRENT) DRUG THERAPY 11/10/2019 HERMAN TEJEDA MD Ot Z80. 3 FAMILY HISTORY OF MALIGNANT NEOPLASM OF 11/10/2019 HERMAN TEJEDA MD Ot Z83. 3 FAMILY HISTORY OF DIABETES MELLITUS 11/10/2019 HERMAN TEJEDA MD, Ot Z88. 8 ALLERGY STATUS TO OTH DRUG/MEDS/BIOL SUB 11/10/2019 HERMAN TEJEDA MD, Ot Z90. 49 ACQUIRED ABSENCE OF OTHER SPECIFIED PART 11/10/2019 HERMAN TEJEDA MD, Ot Z90.710 ACQUIRED ABSENCE OF BOTH CERVIX AND UTER 11/10/2019 HERMAN TEJEDA MD, Ot Z91.041 RADIOGRAPHIC DYE ALLERGY STATUS 11/11/2019 HERMAN TEJEDA MD, Ot I48. 0 PAROXYSMAL ATRIAL FIBRILLATION 11/11/2019 HERMAN TEJEDA MD Ot Z01.818 ENCOUNTER FOR OTHER PREPROCEDURAL EXAMIN 11/11/2019 HERMAN TEJEDA MD, Ot Z20.828 CONTACT W AND EXPOSURE TO OTH VIRAL COMM 11/27/2019 HERMAN TEJEDA MD, Ot I48. 0 PAROXYSMAL ATRIAL FIBRILLATION 11/27/2019 HERMAN TEJEDA MD, Ot Z01.818 ENCOUNTER FOR OTHER PREPROCEDURAL EXAMIN 11/27/2019 HERMAN TEJEDA MD, Ot Z20.828 CONTACT W AND EXPOSURE TO OTH VIRAL COMM Procedures Code Description Performed By Per formed On [id number] RE STORATION OF CARDIAC RHYTHM, SINGLE 11/23/2016 [id number] RE STORATION OF CARDIAC RHYTHM, SINGLE 11/24/2016 Results Test Result Range Comprehensive metabolic panel - 01/29/16 15:51 Serum or plasma sodium measurement (moles/volume) 139 mmol/L 135-145 Serum or plasma potassium measurement (moles/volume) 4.2 mmol/L 3.6-5.0 Serum or plasma chloride measurement (moles/volume) 106 mmol/L 98-107 Carbon dioxide 22 mmol/L 21-32 Serum or plasma anion gap determination (moles/volume) 11 mmol/L 5-14 Serum or plasma urea nitrogen measurement (mass/volume ) 24 mg/dL 7-18 Serum or plasma creatinine measurement (mass/volume) 0.80 mg/dL 0.60-1.30 Serum or plasma urea nitrogen/creatinine mass ratio 30 NRG Serum or plasma creatinine measurement w ith calculation of estimated glomerular filtration rate > NRG Serum or plasma glucose measurement (mass/volume) 71 mg/dL 70-105 Serum or plasma calcium measurement (mass/volume) 9.6 mg/dL 8.5-10.1 Serum or plasma total bilirubin measurement (mass/volu me) 0.3 mg/dL 0.1-1.0 Serum or plasma alkaline phosphatase isai surement (enzymatic activity/volume) 49 U/L 40-136 Serum or plasma aspartate aminotransfera se measurement (enzymatic activity/volume) 30 U/L 5-34 Serum or plasma alanine aminotransferase measurement (enzymatic activity/volume) 23 U/L 0-55 Serum or plasma protein measurement (mass/volume) 6.8 g/dL 6.4-8.2 Serum or plasma albumin measurement (mass/volume) 4.1 g/dL 3.2-4.5 Complete blood count (CBC) with automate d white blood cell (WBC) differential - 01/29/16 15:51 Blood leukocytes automated count (number/volume) 5.0 10*3/uL 4.3-11.0 Blood erythrocytes automated count (number/volume) 3.95 10*6/uL 4.35-5.85 Venous blood hemoglobin measurement (mass/volume) 12.6 g/dL 11.5-16.0 Blood hematocrit (volume fraction) 37 % 35-52 Automated erythrocyte mean corpuscular volume 93 [ foz_us] 80-99 Automated erythrocyte mean corpuscular h emoglobin (mass per erythrocyte) 32 pg 25-34 Automated erythrocyte mean corpuscular h emoglobin concentration measurement (mass/volume) 34 g/dL 32-36 Automated erythrocyte distribution width ratio 12. 7 % 10.0- 14.5 Automated blood platelet count (count/volume) 238 10*3/uL 130-400 Automated blood platelet mean volume measurement 11.0 [foz_us] 7.4-10.4 Automated blood neutrophils/100 leukocytes 52 % 42-75 Automated blood lymphocytes/100 leukocytes 34 % 12-44 Blood monocytes/100 leukocytes 12 % 0-12 Automated blood eosinophils/100 leukocytes 1 % 0-10 Automated blood basophils/100 leukocytes 1 % 0-10 Blood neutrophils automated count (number/volume) 2.6 10*3 1.8-7.8 Blood lymphocytes automated count (number/volume) 1.7 10*3 1.0-4.0 Blood monocytes automated count (number/volume) 0. 6 10*3 0.0-1.0 Automated eosinophil count 0.1 10*3/uL 0 .0-0.3 Automated blood basophil count (count/volume) 0.0 10*3/uL 0.0-0.1 Serum or plasma troponin i.cardiac measu rement (mass/volume) - 01/29/16 15:51 Serum or plasma troponin i.cardiac measurement (mass/v olume) < ng/mL <0.30 Automated blood complete blood count (he mogram) panel - 11/23/16 07:24 Blood leukocytes automated count (number/volume) 4.4 10*3/uL 4.3-11.0 Blood erythrocytes automated count (number/volume) 4.28 10*6/uL 4.35-5.85 Venous blood hemoglobin measurement (mass/volume) 13.3 g/dL 11.5-16.0 Blood hematocrit (volume fraction) 40 % 35-52 Automated erythrocyte mean corpuscular volume 93 [ foz_us] 80-99 Automated erythrocyte mean corpuscular h emoglobin (mass per erythrocyte) 31 pg 25-34 Automated erythrocyte mean corpuscular h emoglobin concentration measurement (mass/volume) 34 g/dL 32-36 Automated erythrocyte distribution width ratio 13. 6 % 10.0- 14.5 Automated blood platelet count (count/volume) 210 10*3/uL 130-400 Automated blood platelet mean volume measurement 10.0 [foz_us] 7.4-10.4 PT panel in platelet poor plasma by coag ulation assay - 11/23/16 07:24 Prothrombin time (PT) in platelet poor plasma by coagu lation assay 20.5 s 12.2-14.7 INR in platelet poor plasma or blood by coagulation as say 1.8 0.8-1.4 Activated partial thromboplastin time (a PTT) in platelet poor plasma bycoagulation assay - 11/23/16 07:24 Activated partial thromboplastin time (a PTT) in platelet poor plasma bycoagulation assay 35 s 24-35 Comprehensive metabolic panel - 11/23/16 07:24 Serum or plasma sodium measurement (moles/volume) 140 mmol/L 135-145 Serum or plasma potassium measurement (moles/volume) 3.9 mmol/L 3.6-5.0 Serum or plasma chloride measurement (moles/volume) 106 mmol/L 98-107 Carbon dioxide 24 mmol/L 21-32 Serum or plasma anion gap determination (moles/volume) 10 mmol/L 5-14 Serum or plasma urea nitrogen measurement (mass/volume ) 14 mg/dL 7-18 Serum or plasma creatinine measurement (mass/volume) 0.67 mg/dL 0.60-1.30 Serum or plasma urea nitrogen/creatinine mass ratio 21 NRG Serum or plasma creatinine measurement w ith calculation of estimated glomerular filtration rate > NRG Serum or plasma glucose measurement (mass/volume) 107 mg/dL 70-105 Serum or plasma calcium measurement (mass/volume) 9.5 mg/dL 8.5-10.1 Serum or plasma total bilirubin measurement (mass/volu me) 0.8 mg/dL 0.1-1.0 Serum or plasma alkaline phosphatase isai surement (enzymatic activity/volume) 102 U/L 40-136 Serum or plasma aspartate aminotransfera se measurement (enzymatic activity/volume) 29 U/L 5-34 Serum or plasma alanine aminotransferase measurement (enzymatic activity/volume) 27 U/L 0-55 Serum or plasma protein measurement (mass/volume) 7.4 g/dL 6.4-8.2 Serum or plasma albumin measurement (mass/volume) 3.8 g/dL 3.2-4.5 Lipid 1996 panel - 11/23/16 07:24 Serum or plasma triglyceride measurement (mass/volume) 77 mg/dL <150 Serum or plasma cholesterol measurement (mass/volume) 218 mg/dL < 200 Serum or plasma cholesterol in HDL measurement (mass/v olume) 65 mg/dL 40-60 Cholesterol in LDL [mass/volume] in serum or plasma by direct assay 140 mg/dL 1-129 Serum or plasma cholesterol in VLDL measurement (mass/ volume) 15 mg/dL 5-40 Methicillin resistant Staphylococcus aur eus (MRSA) screening culture - 11/23/16 07:24 Methicillin resistant Staphylococcus aureus (MRSA) scr eening culture NEG NRG Complete blood count (CBC) with automate d white blood cell (WBC) differential - 12/20/16 09:54 Blood leukocytes automated count (number/volume) 4.0 10*3/uL 4.3-11.0 Blood erythrocytes automated count (number/volume) 4.35 10*6/uL 4.35-5.85 Venous blood hemoglobin measurement (mass/volume) 13.5 g/dL 11.5-16.0 Blood hematocrit (volume fraction) 40 % 35-52 Automated erythrocyte mean corpuscular volume 93 [ foz_us] 80-99 Automated erythrocyte mean corpuscular h emoglobin (mass per erythrocyte) 31 pg 25-34 Automated erythrocyte mean corpuscular h emoglobin concentration measurement (mass/volume) 33 g/dL 32-36 Automated erythrocyte distribution width ratio 13. 5 % 10.0- 14.5 Automated blood platelet count (count/volume) 199 10*3/uL 130-400 Automated blood platelet mean volume measurement 9.8 [foz_us] 7.4-10.4 Automated blood neutrophils/100 leukocytes 48 % 42-75 Automated blood lymphocytes/100 leukocytes 32 % 12-44 Blood monocytes/100 leukocytes 19 % 0-12 Automated blood eosinophils/100 leukocytes 1 % 0-10 Automated blood basophils/100 leukocytes 1 % 0-10 Blood neutrophils automated count (number/volume) 1.9 10*3 1.8-7.8 Blood lymphocytes automated count (number/volume) 1.3 10*3 1.0-4.0 Blood monocytes automated count (number/volume) 0. 8 10*3 0.0-1.0 Automated eosinophil count 0.1 10*3/uL 0 .0-0.3 Automated blood basophil count (count/volume) 0.0 10*3/uL 0.0-0.1 PT panel in platelet poor plasma by coag ulation assay - 12/20/16 09:54 Prothrombin time (PT) in platelet poor plasma by coagu lation assay 19.9 s 12.2-14.7 INR in platelet poor plasma or blood by coagulation as say 1.7 0.8-1.4 Activated partial thromboplastin time (a PTT) in platelet poor plasma bycoagulation assay - 12/20/16 09:54 Activated partial thromboplastin time (a PTT) in platelet poor plasma bycoagulation assay 30 s 24-35 Fibrin D-dimer FEU measurement in platel et poor plasma (mass/volume) - 12/20/16 09:54 Fibrin D-dimer FEU measurement in platelet poor plasma (mass/volume) 0.36 ug/mL 0.00-0.49 Comprehensive metabolic panel - 12/20/16 09:54 Serum or plasma sodium measurement (moles/volume) 138 mmol/L 135-145 Serum or plasma potassium measurement (moles/volume) 3.8 mmol/L 3.6-5.0 Serum or plasma chloride measurement (moles/volume) 104 mmol/L 98-107 Carbon dioxide 22 mmol/L 21-32 Serum or plasma anion gap determination (moles/volume) 12 mmol/L 5-14 Serum or plasma urea nitrogen measurement (mass/volume ) 14 mg/dL 7-18 Serum or plasma creatinine measurement (mass/volume) 0.72 mg/dL 0.60-1.30 Serum or plasma urea nitrogen/creatinine mass ratio 19 NRG Serum or plasma creatinine measurement w ith calculation of estimated glomerular filtration rate > NRG Serum or plasma glucose measurement (mass/volume) 109 mg/dL 70-105 Serum or plasma calcium measurement (mass/volume) 8.9 mg/dL 8.5-10.1 Serum or plasma total bilirubin measurement (mass/volu me) 0.8 mg/dL 0.1-1.0 Serum or plasma alkaline phosphatase isai surement (enzymatic activity/volume) 135 U/L 40-136 Serum or plasma aspartate aminotransfera se measurement (enzymatic activity/volume) 44 U/L 5-34 Serum or plasma alanine aminotransferase measurement (enzymatic activity/volume) 74 U/L 0-55 Serum or plasma protein measurement (mass/volume) 6.9 g/dL 6.4-8.2 Serum or plasma albumin measurement (mass/volume) 3.6 g/dL 3.2-4.5 Magnesium - 12/20/16 09:54 Magnesium 1.8 mg/dL 1.8-2.4 Serum or plasma amylase measurement (enz ymatic activity/volume) - 12/20/16 09:54 Serum or plasma amylase measurement (enzymatic activit y/volume) 60 U/L 25-125 Lipase - 12/20/16 09:54 Lipase 40 U/L 8-78 Serum or plasma troponin i.cardiac measu rement (mass/volume) - 12/20/16 09:54 Serum or plasma troponin i.cardiac measurement (mass/v olume) < ng/mL <0.30 Myoglobin, serum - 12/20/16 09:54 Myoglobin, serum 25.5 ng/mL 10.0-92.0 Myoglobin, serum - 12/20/16 12:05 Myoglobin, serum 32.0 ng/mL 10.0-92.0 Serum or plasma troponin i.cardiac measu rement (mass/volume) - 12/20/16 12:05 Serum or plasma troponin i.cardiac measurement (mass/v olume) < ng/mL <0.30 Myoglobin, serum - 12/20/16 12:05 Myoglobin, serum 32.0 ng/mL 10.0-92.0 Automated blood complete blood count (he mogram) panel - 01/11/17 07:19 Blood leukocytes automated count (number/volume) 3.5 10*3/uL 4.3-11.0 Blood erythrocytes automated count (number/volume) 4.19 10*6/uL 4.35-5.85 Venous blood hemoglobin measurement (mass/volume) 13.0 g/dL 11.5-16.0 Blood hematocrit (volume fraction) 40 % 35-52 Automated erythrocyte mean corpuscular volume 95 [ foz_us] 80-99 Automated erythrocyte mean corpuscular h emoglobin (mass per erythrocyte) 31 pg 25-34 Automated erythrocyte mean corpuscular h emoglobin concentration measurement (mass/volume) 33 g/dL 32-36 Automated erythrocyte distribution width ratio 13. 6 % 10.0- 14.5 Automated blood platelet count (count/volume) 230 10*3/uL 130-400 Automated blood platelet mean volume measurement 9.7 [foz_us] 7.4-10.4 PT panel in platelet poor plasma by coag ulation assay - 01/11/17 07:19 Prothrombin time (PT) in platelet poor plasma by coagu lation assay 12.8 s 12.2-14.7 INR in platelet poor plasma or blood by coagulation as say 1.0 0.8-1.4 Activated partial thromboplastin time (a PTT) in platelet poor plasma bycoagulation assay - 01/11/17 07:19 Activated partial thromboplastin time (a PTT) in platelet poor plasma bycoagulation assay 29 s 24-35 Comprehensive metabolic panel - 01/11/17 07:19 Serum or plasma sodium measurement (moles/volume) 141 mmol/L 135-145 Serum or plasma potassium measurement (moles/volume) 4.0 mmol/L 3.6-5.0 Serum or plasma chloride measurement (moles/volume) 107 mmol/L 98-107 Carbon dioxide 25 mmol/L 21-32 Serum or plasma anion gap determination (moles/volume) 9 mmol/L 5-14 Serum or plasma urea nitrogen measurement (mass/volume ) 17 mg/dL 7-18 Serum or plasma creatinine measurement (mass/volume) 0.67 mg/dL 0.60-1.30 Serum or plasma urea nitrogen/creatinine mass ratio 25 NRG Serum or plasma creatinine measurement w ith calculation of estimated glomerular filtration rate > NRG Serum or plasma glucose measurement (mass/volume) 107 mg/dL 70-105 Serum or plasma calcium measurement (mass/volume) 9.1 mg/dL 8.5-10.1 Serum or plasma total bilirubin measurement (mass/volu me) 0.7 mg/dL 0.1-1.0 Serum or plasma alkaline phosphatase isai surement (enzymatic activity/volume) 149 U/L 40-136 Serum or plasma aspartate aminotransfera se measurement (enzymatic activity/volume) 34 U/L 5-34 Serum or plasma alanine aminotransferase measurement (enzymatic activity/volume) 44 U/L 0-55 Serum or plasma protein measurement (mass/volume) 6.5 g/dL 6.4-8.2 Serum or plasma albumin measurement (mass/volume) 3.5 g/dL 3.2-4.5 Lipid 1996 panel - 01/11/17 07:19 Serum or plasma triglyceride measurement (mass/volume) 101 mg/dL <150 Serum or plasma cholesterol measurement (mass/volume) 215 mg/dL < 200 Serum or plasma cholesterol in HDL measurement (mass/v olume) 57 mg/dL 40-60 Cholesterol in LDL [mass/volume] in serum or plasma by direct assay 147 mg/dL 1-129 Serum or plasma cholesterol in VLDL measurement (mass/ volume) 20 mg/dL 5-40 Methicillin resistant Staphylococcus aur eus (MRSA) screening culture - 01/11/17 07:19 Methicillin resistant Staphylococcus aureus (MRSA) scr eening culture NEG NRG Automated blood complete blood count (he mogram) panel - 01/12/17 03:54 Blood leukocytes automated count (number/volume) 4.6 10*3/uL 4.3-11.0 Blood erythrocytes automated count (number/volume) 3.18 10*6/uL 4.35-5.85 Venous blood hemoglobin measurement (mass/volume) 10.0 g/dL 11.5-16.0 Blood hematocrit (volume fraction) 31 % 35-52 Automated erythrocyte mean corpuscular volume 97 [ foz_us] 80-99 Automated erythrocyte mean corpuscular h emoglobin (mass per erythrocyte) 31 pg 25-34 Automated erythrocyte mean corpuscular h emoglobin concentration measurement (mass/volume) 33 g/dL 32-36 Automated erythrocyte distribution width ratio 13. 8 % 10.0- 14.5 Automated blood platelet count (count/volume) 208 10*3/uL 130-400 Automated blood platelet mean volume measurement 10.2 [foz_us] 7.4-10.4 Whole blood basic metabolic panel - 12/27 12/12 03:54 Serum or plasma sodium measurement (moles/volume) 139 mmol/L 135-145 Serum or plasma potassium measurement (moles/volume) 4.2 mmol/L 3.6-5.0 Serum or plasma chloride measurement (moles/volume) 105 mmol/L 98-107 Carbon dioxide 25 mmol/L 21-32 Serum or plasma anion gap determination (moles/volume) 9 mmol/L 5-14 Serum or plasma urea nitrogen measurement (mass/volume ) 14 mg/dL 7-18 Serum or plasma creatinine measurement (mass/volume) 0.64 mg/dL 0.60-1.30 Serum or plasma urea nitrogen/creatinine mass ratio 22 NRG Serum or plasma creatinine measurement w ith calculation of estimated glomerular filtration rate > NRG Serum or plasma glucose measurement (mass/volume) 100 mg/dL 70-105 Serum or plasma calcium measurement (mass/volume) 8.4 mg/dL 8.5-10.1 Automated blood complete blood count (he mogram) panel - 01/25/17 08:25 Blood leukocytes automated count (number/volume) 6.3 10*3/uL 4.3-11.0 Blood erythrocytes automated count (number/volume) 3.31 10*6/uL 4.35-5.85 Venous blood hemoglobin measurement (mass/volume) 10.4 g/dL 11.5-16.0 Blood hematocrit (volume fraction) 32 % 35-52 Automated erythrocyte mean corpuscular volume 96 [ foz_us] 80-99 Automated erythrocyte mean corpuscular h emoglobin (mass per erythrocyte) 31 pg 25-34 Automated erythrocyte mean corpuscular h emoglobin concentration measurement (mass/volume) 33 g/dL 32-36 Automated erythrocyte distribution width ratio 14. 1 % 10.0- 14.5 Automated blood platelet count (count/volume) 363 10*3/uL 130-400 Automated blood platelet mean volume measurement 9.6 [foz_us] 7.4-10.4 PT panel in platelet poor plasma by coag ulation assay - 01/25/17 08:25 Prothrombin time (PT) in platelet poor plasma by coagu lation assay 13.4 s 12.2-14.7 INR in platelet poor plasma or blood by coagulation as say 1.0 0.8-1.4 Activated partial thromboplastin time (a PTT) in platelet poor plasma bycoagulation assay - 01/25/17 08:25 Activated partial thromboplastin time (a PTT) in platelet poor plasma bycoagulation assay 31 s 24-35 Comprehensive metabolic panel - 01/25/17 08:25 Serum or plasma sodium measurement (moles/volume) 142 mmol/L 135-145 Serum or plasma potassium measurement (moles/volume) 3.3 mmol/L 3.6-5.0 Serum or plasma chloride measurement (moles/volume) 105 mmol/L 98-107 Carbon dioxide 24 mmol/L 21-32 Serum or plasma anion gap determination (moles/volume) 13 mmol/L 5-14 Serum or plasma urea nitrogen measurement (mass/volume ) 11 mg/dL 7-18 Serum or plasma creatinine measurement (mass/volume) 0.63 mg/dL 0.60-1.30 Serum or plasma urea nitrogen/creatinine mass ratio 17 NRG Serum or plasma creatinine measurement w ith calculation of estimated glomerular filtration rate > NRG Serum or plasma glucose measurement (mass/volume) 102 mg/dL 70-105 Serum or plasma calcium measurement (mass/volume) 8.9 mg/dL 8.5-10.1 Serum or plasma total bilirubin measurement (mass/volu me) 1.3 mg/dL 0.1-1.0 Serum or plasma alkaline phosphatase isai surement (enzymatic activity/volume) 177 U/L 40-136 Serum or plasma aspartate aminotransfera se measurement (enzymatic activity/volume) 22 U/L 5-34 Serum or plasma alanine aminotransferase measurement (enzymatic activity/volume) 21 U/L 0-55 Serum or plasma protein measurement (mass/volume) 6.9 g/dL 6.4-8.2 Serum or plasma albumin measurement (mass/volume) 3.2 g/dL 3.2-4.5 Methicillin resistant Staphylococcus aur eus (MRSA) screening culture - 01/25/17 08:25 Methicillin resistant Staphylococcus aureus (MRSA) scr eening culture NEG NRG [id number] gene mutation analysis - 7 08:25 [id number] gene mutation analysis Rapid NRG Automated blood complete blood count (he mogram) panel - 01/26/17 04:02 Blood leukocytes automated count (number/volume) 4.5 10*3/uL 4.3-11.0 Blood erythrocytes automated count (number/volume) 2.78 10*6/uL 4.35-5.85 Venous blood hemoglobin measurement (mass/volume) 8.7 g/dL 11.5-16.0 Blood hematocrit (volume fraction) 27 % 35-52 Automated erythrocyte mean corpuscular volume 97 [ foz_us] 80-99 Automated erythrocyte mean corpuscular h emoglobin (mass per erythrocyte) 31 pg 25-34 Automated erythrocyte mean corpuscular h emoglobin concentration measurement (mass/volume) 32 g/dL 32-36 Automated erythrocyte distribution width ratio 13. 8 % 10.0- 14.5 Automated blood platelet count (count/volume) 317 10*3/uL 130-400 Automated blood platelet mean volume measurement 9.8 [foz_us] 7.4-10.4 Whole blood basic metabolic panel - 12/29 06/14 04:02 Serum or plasma sodium measurement (moles/volume) 138 mmol/L 135-145 Serum or plasma potassium measurement (moles/volume) 4.0 mmol/L 3.6-5.0 Serum or plasma chloride measurement (moles/volume) 106 mmol/L 98-107 Carbon dioxide 22 mmol/L 21-32 Serum or plasma anion gap determination (moles/volume) 10 mmol/L 5-14 Serum or plasma urea nitrogen measurement (mass/volume ) 15 mg/dL 7-18 Serum or plasma creatinine measurement (mass/volume) 0.56 mg/dL 0.60-1.30 Serum or plasma urea nitrogen/creatinine mass ratio 27 NRG Serum or plasma creatinine measurement w ith calculation of estimated glomerular filtration rate > NRG Serum or plasma glucose measurement (mass/volume) 143 mg/dL 70-105 Serum or plasma calcium measurement (mass/volume) 8.5 mg/dL 8.5-10.1 Coronavirus SARS-CoV-2 SO 2019 - 0 08:40 Coronavirus Ab [Units/volume] in Serum Negative Negative Automated blood complete blood count (he mogram) panel - 11/06/19 08:00 Blood leukocytes automated count (number/volume) 2.9 10*3/uL 4.3-11.0 Blood erythrocytes automated count (number/volume) 4.19 10*6/uL 4.35-5.85 Venous blood hemoglobin measurement (mass/volume) 12.3 g/dL 11.5-16.0 Blood hematocrit (volume fraction) 38 % 35-52 Automated erythrocyte mean corpuscular volume 90 [ foz_us] 80-99 Automated erythrocyte mean corpuscular h emoglobin (mass per erythrocyte) 29 pg 25-34 Automated erythrocyte mean corpuscular h emoglobin concentration measurement (mass/volume) 33 g/dL 32-36 Automated erythrocyte distribution width ratio 13. 0 % 10.0- 14.5 Automated blood platelet count (count/volume) 260 10*3/uL 130-400 Automated blood platelet mean volume measurement 9.6 [foz_us] 7.4-10.4 PT panel in platelet poor plasma by coag ulation assay - 11/06/19 08:00 Prothrombin time (PT) in platelet poor plasma by coagu lation assay 27.2 s 12.2-14.7 INR in platelet poor plasma or blood by coagulation as say 2.4 0.8-1.4 Activated partial thromboplastin time (a PTT) in platelet poor plasma bycoagulation assay - 11/06/19 08:00 Activated partial thromboplastin time (a PTT) in platelet poor plasma bycoagulation assay 39 s 24-35 Methicillin resistant Staphylococcus aur eus (MRSA) screening culture - 11/06/19 08:00 Methicillin resistant Staphylococcus aureus (MRSA) scr eening culture NEG NRG Comprehensive metabolic panel - 11/06/19 08:17 Serum or plasma sodium measurement (moles/volume) 137 mmol/L 135-145 Serum or plasma potassium measurement (moles/volume) 3.6 mmol/L 3.6-5.0 Serum or plasma chloride measurement (moles/volume) 102 mmol/L 98-107 Carbon dioxide 22 mmol/L 21-32 Serum or plasma anion gap determination (moles/volume) 13 mmol/L 5-14 Serum or plasma urea nitrogen measurement (mass/volume ) 24 mg/dL 7-18 Serum or plasma creatinine measurement (mass/volume) 0.86 mg/dL 0.60-1.30 Serum or plasma urea nitrogen/creatinine mass ratio 28 NRG Serum or plasma creatinine measurement w ith calculation of estimated glomerular filtration rate > NRG Serum or plasma glucose measurement (mass/volume) 94 mg/dL 70-105 Serum or plasma calcium measurement (mass/volume) 9.0 mg/dL 8.5-10.1 Serum or plasma total bilirubin measurement (mass/volu me) 0.8 mg/dL 0.1-1.0 Serum or plasma alkaline phosphatase isai surement (enzymatic activity/volume) 84 U/L 40-136 Serum or plasma aspartate aminotransfera se measurement (enzymatic activity/volume) 21 U/L 5-34 Serum or plasma alanine aminotransferase measurement (enzymatic activity/volume) 14 U/L 0-55 Serum or plasma protein measurement (mass/volume) 7.0 g/dL 6.4-8.2 Serum or plasma albumin measurement (mass/volume) 3.8 g/dL 3.2-4.5 CALCIUM CORRECTED 9.2 mg/dL 8.5-10.1 Lipid 1996 panel - 11/06/19 08:17 Serum or plasma triglyceride measurement (mass/volume) 78 mg/dL <150 Serum or plasma cholesterol measurement (mass/volume) 161 mg/dL < 200 Serum or plasma cholesterol in HDL measurement (mass/v olume) 67 mg/dL 40-60 Cholesterol in LDL [mass/volume] in serum or plasma by direct assay 84 mg/dL 1-129 Serum or plasma cholesterol in VLDL measurement (mass/ volume) 16 mg/dL 5-40 Coronavirus SARS-CoV-2 SO 2018 - 0 08:06 Coronavirus Ab [Units/volume] in Serum Negative Negative Encounters ACCT No. Visit Date/Time Discharge Status Pt. Type Provider Facility Loc./Unit Complaint 0000 01/17/2017 08:34:52 01/17/2017 23:59:5 9 CLS Outpatient [id number] 11/06/2019 07:32:00 020 11:05:00 DIS Outpatient ILEANA KIRK, HER[facility] AFIB [id number] 11/04/2019 07:13:00 23:59:59 CLS Outpatient HERMAN TEJEDA MD [facility] LABNPT [id number] 07/08/2019 07:17:00 23:59:59 CLS Outpatient HERMAN TEJEDA MD [facility] CARD CAD,HTN [id number] 07/05/2019 11:46:00 23:59:59 CLS Outpatient HERMAN TEJEDA MD [facility] CARD CAD,HTN [id number] 10/09/2018 13:42:00 15:47:00 DIS Outpatient KENNETH ANTONIO MD [facility] REHAB LUMBAR DDD/SPONDY [id number] 07/25/2018 09:45:00 23:59:59 CLS Outpatient FIDELIA BOOTH [facility] RAD LOW BACK PAIN [id number] 03/24/2017 11:00:00 017 23:59:59 CLS Preadmit HERMAN TEJEDA MD [facility] CR STENT [id number] 02/27/2017 13:50:00 13:55:00 DIS Outpatient HERMAN TEJEDA MD [facility] CR STENT [id number] 02/24/2017 10:59:00 017 00:01:00 DIS Outpatient HERMAN TEJEDA MD [facility] CR STENT [id number] 01/25/2017 07:48:00 017 10:10:00 DIS Outpatient HERMAN TEJEDA MD [facility] CATH CAD [id number] 01/11/2017 06:43:00 017 10:10:00 DIS Outpatient HERMAN TEJEDA MD [facility] CATH CP,PAF [id number] 12/20/2016 09:46:00 017 12:54:00 DIS Emergency JEFERSON DE JESUS MD [facility] ER CHEST PAIN [id number] 11/23/2016 06:55:00 017 15:40:00 DIS Outpatient HERMAN TEJEDA MD [facility] CATH AFIB,HTN [id number] 11/23/2016 08:00:00 017 23:59:59 CLS Preadmit HERMAN TEJEDA MD [facility] AFIB/HTN [id number] 11/08/2016 12:02:00 017 23:59:59 CLS Outpatient FIDELIA BOOTH [facility] CARD AFIB [id number] 01/29/2016 15:35:00 016 23:59:59 CLS Emergency SUREKHA JOSHI MD [facility] ER CHEST PAIN [id number] 10/08/2015 09:50:00 016 23:59:59 CLS Outpatient HERMAN TEJEDA MD [facility] CARD PALPITATIONS,HTN,DYSPNEA,DEPRESSION [id number] 01/21/2015 09:33:00 015 23:59:59 CLS Outpatient HERMAN TEJEDA MD [facility] CARD CHEST PAIN [id number] 12/17/2014 12:46:00 015 23:59:59 CLS Outpatient HERMAN TEJEDA MD [facility] CARD CHEST PAIN HTN DYPSNEA [id number] 10/22/2014 07:25:00 015 10:55:00 DIS Outpatient GILDA BARNES MD [facility] HISTORY OF POLYPS [id number] 10/16/2014 06:03:00 015 23:59:59 CLS Outpatient GILDA BARNES MD [facility] PREOP HISTORY OF POLYPS [id number] 08/13/2013 08:49:00 014 23:59:59 CLS Outpatient JENNIFER RIDER MD [facility] RAD ROUTINE [id number] 04/17/2013 07:20:00 11:30:00 DIS Outpatient GILDA BARNES MD [facility] SDC SCREENING [id number] 04/11/2013 07:25:00 23:59:59 CLS Outpatient GILDA BARNES MD [facility] PREOP SCREENING [id number] 09/27/2012 12:51:00 09:01:00 DIS Outpatient JEANNE JEFF DO [facility] REHAB R HIP BURSITIS [id number] 12/04/2019 09:00:00 P EN Preadmit HERMAN TEJEDA MD [facility] CATH CP,AFIB,SOB,HTN,HLP [id number] 12/02/2019 08:00:[address] Outpatient HERMAN TEJEDA MD [facility] LABNPT [id number] 01/24/2012 11:53:00 Document Registration
[2019-12-04] MEDS ORDERED: ASPI-983 PO (07:29)
[2019-12-04] MEDS ORDERED: AMIO200T4 PO (07:29)
[2019-12-04 07:30] LABS: HEMOGLOBIN 11.9 G/DL (11.5-16.0); MEAN PLATELET VOLUME 9.4 FL (7.4-10.4); RED CELL DISTRIBUTION WIDTH 13.6 % (10.0-14.5); WHITE BLOOD COUNT 4.3 10^3/uL (4.3-11.0)
[2019-12-04 07:41] LABS: INR 1.7 (0.8-1.4)
[2019-12-04 07:51] LABS: ALBUMIN 4.2 GM/DL (3.2-4.5); BILIRUBIN,TOTAL 0.6 MG/DL (0.1-1.0); CALCIUM 8.9 MG/DL (8.5-10.1); CREATININE SERUM 1.03 MG/DL (0.60-1.30); POTASSIUM 3.6 MMOL/L (3.6-5.0); TOTAL PROTEIN 7.6 GM/DL (6.4-8.2)
--- NOTE | 2019-12-04 07:51 | Diagnostic Imaging Report ---
INDICATION: CP,AFIB,SOB,HTN,HLP COMPARISON: 11/06/2019 FINDINGS: Single frontal view of the chest demonstrates normal heart size and pulmonary vascularity. The lungs are well aerated and clear. No large pleural effusion or pneumothorax is seen. The visualized osseous structures show no acute abnormalities. Sternotomy wires are noted. IMPRESSION: 1. No acute cardiopulmonary process. Dictated by: Dictated on workstation # [id number]
[2019-12-04] MEDS ORDERED: MIDAZOLAM 5 MG/5 ML (VERSED) VIAL ONE (08:06)
[2019-12-04] MEDS ORDERED: diphenhydrAMINE 50 MG/ML INJ (BENADRYL) ONE (08:06)
[2019-12-04] MEDS ORDERED: fentaNYL INJECTION 100 MCG/2 ML AMP ONE (08:06)
[2019-12-04] MEDS ORDERED: methylPREDNISolone 125 MG (Solu-MEDROL) VIAL ONE (08:06)
--- NOTE | 2019-12-04 08:19 | Cardiac Procedure Note-CS/ASA ---
Pre-Procedure Note Pre-Op Procedure Note H&P Reviewed The H&P was reviewed, patient examined and no changes noted. Date H&P Reviewed: Dec 04, 2019 Time H&P Reviewed: 08:19 Conscious Sedation Pre-Proced Time 08:19 ASA Score 3 For ASA 3 and 4: Consider anesthesia and medical clearance. Also, for patients with a history of failed moderate sedation consider anesthesia. Airway Lungs Heart ASA score ASA 1: a normal healthy patient ASA 2: a patient with a mild systemic disease (mid diabetes, controlled hypertension, obesity x ASA 3: a patient with a severe systemic disease that limits activity (angina, COPD, prior Myocardial infarction) ASA 4: a patient with an incapacitating disease that is a constant threat to life (CHF, renal failure) ASA 5: a moribund patient not expected to survive 24 hrs. (ruptured aneurysm) ASA 6: a declared brain- patient whose organs are being harvested. For emergent operations, add the letter E after the classification Mallampati Classification Grade 3 Sedation Plan Analgesia, Amnesia, Plan communicated to team members, Discussed options with patient/fam, Discussed risks with patient/fam The patient is an appropriate candidate to undergo the planned procedure, sedation, and anesthesia. The patient immediately re-assessed prior to indication. HERMAN TEJEDA MD Dec 04, 2019 08:19
[2019-12-04] MEDS ORDERED: HEParin 1000 UNIT/ML (10ML VIAL) FOR BOLUS ONE (08:35)
[2019-12-04] MEDS ORDERED: NITRO DRIP 25000 MCG/D5W 250 ML IV ONE (08:36)
[2019-12-04] MEDS ORDERED: ASPIRIN 325 MG (5 GR) TABLET ONE (08:58)
[2019-12-04] MEDS ORDERED: PRASUGREL 10 MG (EFFIENT) TABLET ONE (08:58)
[2019-12-04] MEDS ORDERED: PATIENT MAY USE OWN MEDS, ALL PO SCH (09:00)
[2019-12-04] MEDS ORDERED: ASPIRIN E.C. 81 MG (ECOTRIN) TAB PO SCH (09:00)
[2019-12-04] MEDS ORDERED: HYDROCHLOROTHIAZIDE 25 MG (HCTZ) TAB PO SCH (09:00)
[2019-12-04] MEDS ORDERED: AMIODARONE 200 MG (CORDARONE) TAB PO SCH (09:00)
[2019-12-04] MEDS ORDERED: NON-FORMULARY MEDICATION 1 EA EA (Omega-3 Fatty Acids/Fish Oil (Fish Oil 1,200 mg Softgel) PO SCH (09:00)
[2019-12-04] MEDS ORDERED: ALPRAZolam 0.25 MG (XANAX) TAB PO PRN ×2 (09:00→13:45)
[2019-12-04] MEDS ORDERED: NITROGLYCERIN 0.4 MG SL TABS BTL 25'S SL SCH ×2 (09:00→13:45)
[2019-12-04] MEDS ORDERED: LEVOTHYROXINE 50 MCG (LEVOTHROID) TAB PO SCH (09:00)
[2019-12-04] MEDS ORDERED: PRASUGREL 10 MG (EFFIENT) TABLET PO SCH (09:00)
--- NOTE | 2019-12-04 09:04 | Cardiac Cath Report ---
Cardiac Cath Report Physician (s)/Venetian Blind Mechanic (s) Physician HERMAN TEJEDA MD Pre-Procedure Diagnosis Pre-Procedure Diagnosis: CAD Post-Procedure Note Procedure Start Date: Dec 04, 2019 Name of Procedure: Left heart catheterization Stent to the circumflex artery Findings/Procedure Note PROCEDURE NOTE: 74-year-old lady with history of coronary artery disease multiple stents in the LAD, circumflex and right coronary artery, had borderline stress test, has been having increasing chest pain. Scheduled for cardiac catheterization possible PTCA. After explaining the procedure to the patient, all pros and cons were explained, all questions were answered. The patient signed the consent and then she was placed on the cardiac catheterization laboratory. Groin was prepped SL fashion local anesthesia was used. Sheath placed in the right femoral artery. Mariza right and left catheter were used to access the coronary system. Pigtail was used to access the left ventricular cavity. Left ventriculogram was not done, pressure was measured Patient was given 5000 units of heparin, had severe stenosis in the proximal circumflex artery proximal to the stent that was placed in 2018. FL guide was advanced to the left system, BMW wire was advanced through the circumflex artery infarct distally, primary stenting using Miriam 2.5 x 12 mm postdilated with noncompliant balloon to 2.81 mm with excellent results. At the end of the procedure the sheath was removed. Closure device was used FINDINGS: Hemodynamics LV 140/13, end-diastolic pressure of 13 Aorta 124/54 mean of 81 ANATOMY: Left Main is free of obstructive disease Left Anterior Descending has patent stent with mild disease nonobstructive disease Left Circumflex has patent stents, proximal to the stent there is an area of severe stenosis successful primary stenting using Miriam 2.5 x 12 mm expanded with noncompliant balloon to 2.81 mm with excellent results Right Coronory Artery has multiple stents they were all patent with small vessel disease distally LV Gram was not done, pressure was measured CONCLUSION: 1. Severe proximal left circumflex artery stenosis proximal to the previous stents, successful primary stenting using Miriam 2.5 x 12 mm expanded to 2.81 mm using noncompliant balloon with excellent results 2. Patent stent in the LAD with mild disease distally, patent multiple stents in the right coronary artery with excellent flow, small vessel disease distally 3. Normal left ventricular end-diastolic pressure DISCUSSION AND RECOMMENDATION: Patient is intolerant to Plavix on Brilinta, she was loaded with Effient and aspirin, she has been on Xarelto which will be held for the next 48 hours then she will restart Xarelto in addition to the aspirin and Effient Anesthesia Type: Conscious Sedation Estimated blood loss (mL): 25 ml Contrast Amount: 57 ml Total Radiation Dose: 647 mGy Post-Procedure Diagnosis Post-operative diagnosis: Unstable angina Coronary artery disease Hypertension Hyperlipidemia HERMAN TEJEDA MD Dec 04, 2019 09:04
[2019-12-04] MEDS ORDERED: PRAS10TA6 PO (10:29)
--- NOTE | 2019-12-04 10:30 | Discharge Inst-Post CATH ---
Discharge Inst-CATH/EP Problems Reviewed?: Yes Post Cardiac Cath/EP D/C Inst Follow Up/Plan Appointment with Dr. Solorzano's office in 2-4 weeks <b>CARDIAC CATH/EP PROCEDURE DISCHARGE INSTRUCTIONS</b> ACTIVITY * Go Home directly and rest. * Limit activity of the leg (or wrist if it was used) for 7 days including aerobics, swimming, jogging, bicycling, etc. * Restrict stair-climbing for 7 days if possible, if not, climb up with your non-cath leg, then bring together on the same step. * Avoid lifting, pushing, pulling or excessive movement of the affected extremity for 7 days. * Customary sexual activity may be resumed after 2 days-use caution not to use a position that strains or causes pain to the affected extremity. * No driving for 24 hours. * NO SMOKING. * Avoid straining for bowel movements for 7 days. * Gentle walking on level ground is allowed. * Returning to work will depend on the type of procedure and the results. Your doctor will discuss this with you. CALL YOUR DOCTOR FOR ANY OF THE FOLLOWING: *If bleeding from the puncture site occurs- Apply gentle pressure to site with clean cloth and call your doctor or EMS. * If a knot or lump forms under the skin, increases in size, or causes pain. * If bruising appears to be worsening or moving further down your leg instead of disappearing. * Temperature above 101 F. CARE OF YOUR GROIN INCISION; * Bruising or purple discoloration of the skin near the puncture site is common. * You may shower only, no bathtub bathing for 5 days. Be careful to avoid slipping as your leg may feel stiff. * If a closure device was used on your femoral artery, please see the attached guide regarding care of the device and your leg. * Leave dressing on FOR 24 hours. CARE OF YOUR WRIST INCISION; * Bruising or purple discoloration of the skin near the puncture site is common. * You may shower. * DO NOT submerge wrist. * Leave dressing on FOR 24 hours. HERMAN SOLORZANO MD Dec 04, 2019 10:30
[2019-12-04] MEDS ORDERED: PANTOPRAZOLE 40 MG (PROTONIX) TAB PO SCH (11:23)
[2019-12-04] MEDS ORDERED: FLUoxetine HCL 20 MG (PROzac) CAP PO SCH (11:23)
[2019-12-04] MEDS ORDERED: NICOTINE 21 MG (NICODERM) PATCH TD SCH (14:30)
[2019-12-04] MEDS ORDERED: MELATONIN 10 MG TABLET PO SCH (21:00)
[2019-12-05] MEDS ORDERED: NICOTINE PATCH REMOVAL TP SCH (08:59)
[2019-12-05] MEDS ORDERED: PANTOPRAZOLE 40 MG (PROTONIX) TAB PO SCH (09:00)
[2019-12-05] MEDS ORDERED: HYDROCHLOROTHIAZIDE 25 MG (HCTZ) TAB PO SCH (09:00)
[2019-12-05] MEDS ORDERED: AMIODARONE 200 MG (CORDARONE) TAB PO SCH (09:00)
[2019-12-05] MEDS ORDERED: LEVOTHYROXINE 50 MCG (LEVOTHROID) TAB PO SCH (09:00)
[2019-12-05] MEDS ORDERED: ASPIRIN E.C. 81 MG (ECOTRIN) TAB PO SCH (09:00)
[2019-12-05] MEDS ORDERED: FLUoxetine HCL 20 MG (PROzac) CAP PO SCH (09:00)
== END 2019-12-04 16:08 | disposition home or self-care (01) ==
LOC: CATH 06:47 → ICU 09:14 → CATH 16:08
PROVIDERS: ATTEND Internal Medicine Cardiovascular Disease
DX: I25.110 Atherosclerotic heart disease of native coronary artery with unstable angina pectoris (principal); I10 Essential (primary) hypertension; E78.5 Hyperlipidemia, unspecified; I48.0 Paroxysmal atrial fibrillation; F32.9 Major depressive disorder, single episode, unspecified; F41.9 Anxiety disorder, unspecified; M79.669 Pain in unspecified lower leg; Z79.82 Long term (current) use of aspirin; Z79.899 Other long term (current) drug therapy; Z90.710 Acquired absence of both cervix and uterus; Z90.49 Acquired absence of other specified parts of digestive tract; Z88.8 Allergy status to other drugs, medicaments and biological substances; Z83.3 Family history of diabetes mellitus; Z80.3 Family history of malignant neoplasm of breast
CPT/HCPCS: 71045; 80053; 80061; 85027; 85347; 85610; 85730; 87081; 93458; C1725; C1760; C1769; C1874; C1887; C1894; C9600; 36415

== ENCOUNTER 2020-08-03 05:30 | Outpatient (RCR) | payer MEDICARE, OTHER ==
[~2020-08-03] VITALS: Ht 152.4 cm; Wt 59.0 kg
[~2020-08-03 05:30] MED LIST changes: +ALPR.25T PO; -ALPR0.254 PO; -AMIO200T4 PO; +AMIO200T6 PO; +ASPI-1238 PO; -ASPI-983 PO; +DILT120C53 PO; +EZET10TA49 PO; +IRON1TAB97 PO; +MELA1TAB20 PO; +PRAS10TA6 PO
== END 2020-08-03 10:20 | disposition home or self-care (01) ==
LOC: PREOP 05:30
PROVIDERS: ATTEND Surgery
DX: Z01.812 Encounter for preprocedural laboratory examination (principal); D64.9 Anemia, unspecified; Z20.822 Contact with and (suspected) exposure to COVID-19; Z86.010 Personal history of colon polyps
CPT/HCPCS: 87635

== ENCOUNTER 2020-08-05 08:19 | Day surgery (SDC) | payer MEDICARE, OTHER ==
[~2020-08-05] VITALS: Ht 152.4 cm; Wt 59.0 kg
[2020-08-05] MEDS ORDERED: LACTATED RINGERS 1,000 ML IV ONE (08:20)
[2020-08-05] MEDS ORDERED: GLYCOPYRROLATE 0.2 MG/ML (ROBINUL) 2 ML VIAL IJ ONE (08:20)
[2020-08-05] MEDS ORDERED: LACTATED RINGERS 1,000 ML IV STA (08:22)
--- NOTE | 2020-08-05 08:29 | Progress Note-Pre Operative ---
Pre-Operative Progress Note H&P Reviewed The H&P was reviewed, patient examined and no changes noted. Date Seen by Provider: Aug 05, 2020 Time Seen by Provider: 07:55 Date H&P Reviewed: Aug 05, 2020 Time H&P Reviewed: 07:55 Pre-Operative Diagnosis: anemia, hx polyps GILDA BARNES MD Aug 05, 2020 08:29
[2020-08-05] MEDS ORDERED: HURRICAINE EXT TUBE (BENZOCAINE) XX PRN (08:30)
[2020-08-05] MEDS ORDERED: HYDROcodone/APAP 5 MG/325 MG (LORTAB) TAB PO PRN (08:30)
[2020-08-05] MEDS ORDERED: ACETAMINOPHEN 325 MG TABLET PO PRN (08:30)
[2020-08-05] MEDS ORDERED: ONDANSETRON 4 MG/2 ML (SDV) Z0FRAN IVP PRN (08:30)
[2020-08-05] MEDS ORDERED: LIDOCAINE JELLY 2% 6 ML SYRINGE MM PRN (08:30)
[2020-08-05] MEDS ORDERED: morphine INJ 10 MG/ML 1ML (SYR OR VIAL) IVP PRN ×2 (08:30)
[2020-08-05] MEDS ORDERED: PROPOFOL INJECTION 50 ML IV ONE (08:34)
--- NOTE | 2020-08-05 08:34 | Discharge Inst-Surgical ---
D/C Lap Instructions-CAMERON Follow Up Appt in 2 weeks Activity as tolerated High Fiber Diet 25g or more per day Avoid Alcohol, Caffeine, Spicy [place] and Acid foods. Drink 64 fluid oz or more of fluids per day. Symptoms to Report: Fever over 101 degree F, Nausea/Vomiting If any problems/questions: Contact your physician or go to Emergency Room GILDA BARNES MD Aug 05, 2020 08:34
[2020-08-05] MEDS ORDERED: MIDAZOLAM 2 MG/2 ML (VERSED) VIAL ONE (08:35)
[2020-08-05] MEDS ORDERED: LIDOCAINE JELLY 2% 6 ML SYRINGE ONE (08:42)
[2020-08-05] MEDS ORDERED: HURRICAINE EXT TUBE (BENZOCAINE) ONE (08:42)
[2020-08-05 08:51] VITALS: BP 144/66
[2020-08-05 09:30] VITALS: BP 86/53
[2020-08-05 09:35] VITALS: BP 97/55
[2020-08-05 09:40] VITALS: BP 113/62
--- NOTE | 2020-08-05 09:51 | Progress Note-Post Operative ---
Post-Operative Progess Note Surgeon (s)/Bowling Teacher (s) Surgeon GILDA BARNES MD Bowling Teacher: none Pre-Operative Diagnosis anemia, hx polyps Post-Operative Diagnosis reflux esophagitis(stage 2), small HH(2cm), mild gastitis. mild chronic stage 2 ext and int hemorrhoids, palpable extraluminial posterior pelvic lesion, severe descending and sigmoid diverticulosis. polyp transverse colon(3mm), desc colon(2mm) Procedure & Operative Findings Date of Procedure 08/05/20 Procedure Performed/Findings EGD with bx. Colonoscopy with snare and forcep polypectomy Anesthesia Type mac Estimated Blood Loss Estimated blood loss (mL): minimal Specimens/Packing Specimens Removed transverse and descending colon GILDA BARNES MD Aug 05, 2020 09:51
[2020-08-05 10:00] VITALS: BP 114/79
[2020-08-05 10:50] VITALS: BP 114/79
--- NOTE | 2020-08-05 14:24 | Anesthesia-General Post-Op ---
MAC Patient Condition Mental Status/LOC: Same as Preop Cardiovascular: Satisfactory Nausea/Vomiting: Absent Respiratory: Satisfactory Pain: Controlled Complications: Absent Post Op Complications Complications None Follow Up Care/Instructions Patient Instructions None needed. Anesthesiology Discharge Order Discharge Order Patient is doing well, no complaints, stable vital signs, no apparent adverse anesthesia problems. No complications reported per nursing. JORGE WESTBROOK CRNA Aug 05, 2020 14:24
--- NOTE | 2020-08-05 14:38 | OPERATIVE REPORT ---
DATE OF SERVICE: 08/05/2020 ATTENDING PRIMARY CARE PHYSICIAN: Dr. Kim Walker. PREOPERATIVE DIAGNOSIS: Anemia with history of colon polyps. POSTOPERATIVE DIAGNOSES: Reflux esophagitis stage II, small hiatal hernia of 1 cm in size, mild gastritis, chronic stage II external and internal hemorrhoids, [id number] diverticulosis of the transverse, descending and sigmoid colon, small polyp of the ascending colon 2 mm in size, small polyp of the transverse colon approximately 3 mm in size. The previously marked area of previous polyp of the cecum is nonexistent. Palpable nodules posteriorly on digital rectal examination not within the rectal lumen and within the pelvis. PROCEDURE: EGD with bx, colonoscopy with forcep polypectomy, and snare polypectomy. SURGEON: Gilda Barnes MD. ANESTHESIA: Monitored anesthesia care. ESTIMATED BLOOD LOSS: Minimal. FINDINGS: Same as postoperative diagnoses. DISPOSITION: The patient tolerated the procedure well. INDICATIONS: The patient is a 74-year-old female referred over to us for anemia. Her last colonoscopy was in 09/2014 and at that time, she was found to have a polyp of the rectum approximately 5 mm in size as well as significant diverticulosis of the colon. The pathology of the lesion was consistent with a tubulovillous adenoma. She had had another colonoscopy in 03/2013 where she was found to have a polyp of the cecum, which was removed and marked with a submucosal injection with black ink, which was consistent with a tubular adenoma. She was referred over to us for anemia with a hemoglobin of 8.0 as well as weakness and fatigue. She does not report any red blood per rectum nor any dark tarry stools. She does report heartburn; however, under control with Protonix. DESCRIPTION OF PROCEDURE: The patient was brought to the endoscopy suite, laid in the left lateral decubitus position with head slightly elevated. After adequate IV pain and sedative medications and monitored anesthesia care, the mouthpiece was applied. The endoscope was placed in the mouth, visualizing the pharynx and hypopharyngeal region. Vocal cords, epiglottis and vallecula identified and appeared to be normal. The endoscope was then gently intubated into the esophageal opening and esophagus insufflated. The endoscope was then advanced to the first, second and third portion of esophagus at the level of the GE junction, a reflux esophagitis stage II identified. There were no ulcers or strictures identified in this region. A biopsy was taken with forceps with visualization of good hemostasis. The endoscope was advanced in the stomach and the endoscope retroflexed, visualizing a small hiatal hernia approximately 1 cm in size. There was a mild gastritis. No formal ulcerations, polyps, or any neoplasms or any active bleeding sources. A biopsy was taken of the stomach antrum to rule out H. pylori with visualization of good hemostasis. The endoscope was then advanced to the pylorus and the first and second portion of the duodenum, which appeared normal with no polyps or any ulcerations. The endoscope was then slowly withdrawn while taking a second look and suctioning of residual air with no additional findings. We then proceeded with the colonoscopy portion of the procedure and a digital rectal examination was performed. Chronic stage II external and internal hemorrhoids were identified, which were not actively edematous nor inflamed and no bleeding. Upon examination of the tip of the finger at approximately 5 to 6 cm from the anal verge posteriorly was palpable solid nodules, which was not intraluminal within the rectum. It is uncertain what the etiology of this is. The endoscope was then intubated into the anus and rectum gently insufflated. The endoscope was then advanced to the valves of [place] of the rectum with no polyps or any neoplasms identified. The endoscope was then advanced through the sigmoid colon where a severe diverticulosis identified. The diverticulosis extended through the descending and transverse colon as well. A small polyp was identified of the descending colon approximately 2 mm in size, which was biopsied and destroyed using forceps and electrocautery. There was also a slightly larger polyp approximately 3 mm in size with transverse colon, which was removed by snare and electrocautery. We then advanced the endoscope to the ascending colon into the cecum where the previously marked area was clear of any polyps or any neoplasms. The endoscope was then slowly withdrawn while taking a second look and suctioning of residual air with no additional findings. The patient tolerated the procedure well. We will await the biopsy results; however, due to her polyp disease, we will recommend more frequent colonoscopies because she has had a history of a villous component of an adenoma and she should have a colonoscopy approximately every 3 years. We will also get a pelvic ultrasound to evaluate the palpable nodules on digital rectal examination. Job ID: [id number] DocumentID: [id number] Dictated Date: 08/05/2020 09:41:27 Licensed Staff Mft Date: 08/05/2020 14:37:29 Dictated By: GILDA BARNES MD MTDD
== END 2020-08-05 10:50 | disposition home or self-care (01) ==
LOC: SDC 08:19
PROVIDERS: ATTEND Surgery
DX: D12.3 Benign neoplasm of transverse colon (principal); D12.4 Benign neoplasm of descending colon; K29.50 Unspecified chronic gastritis without bleeding; D64.9 Anemia, unspecified; K21.00 Gastro-esophageal reflux disease with esophagitis, without bleeding; K44.9 Diaphragmatic hernia without obstruction or gangrene; K64.1 Second degree hemorrhoids; K57.30 Diverticulosis of large intestine without perforation or abscess without bleeding; I10 Essential (primary) hypertension; I48.91 Unspecified atrial fibrillation; F41.9 Anxiety disorder, unspecified; F32.9 Major depressive disorder, single episode, unspecified; E03.9 Hypothyroidism, unspecified; K21.9 Gastro-esophageal reflux disease without esophagitis; Z79.899 Other long term (current) drug therapy; Z91.041 Radiographic dye allergy status; Z88.8 Allergy status to other drugs, medicaments and biological substances; Z87.19 Personal history of other diseases of the digestive system; Z90.722 Acquired absence of ovaries, bilateral; Z90.710 Acquired absence of both cervix and uterus; Z87.11 Personal history of peptic ulcer disease; Z95.5 Presence of coronary angioplasty implant and graft; Z86.010 Personal history of colon polyps; Z80.3 Family history of malignant neoplasm of breast; Z83.3 Family history of diabetes mellitus
CPT/HCPCS: 88305

== ENCOUNTER → 2020-08-06 | Outpatient (CLI) | payer MEDICARE, OTHER ==
--- NOTE | 2020-08-06 17:42 | Diagnostic Imaging Report ---
PROCEDURE: Pelvic comp/transvaginal sonogram. TECHNIQUE: Complete transabdominal and transvaginal pelvic ultrasound was performed. In addition, limited pelvic Doppler was performed. INDICATION: Palpable mass on rectal exam. The uterus is surgically absent. The ovaries were not visualized. No adnexal mass or free fluid is detected. IMPRESSION: Nonvisualized ovaries and surgically absent uterus. No mass is detected. CT may be useful for further characterization. Dictated by: Dictated on workstation # [id number]
== END ==
LOC: RAD 12:31
PROVIDERS: ATTEND Surgery
DX: R19.07 Generalized intra-abdominal and pelvic swelling, mass and lump (principal); Z90.710 Acquired absence of both cervix and uterus
CPT/HCPCS: 76830; 76856

== ENCOUNTER → 2021-02-09 | Outpatient (CLI) | payer MEDICARE, OTHER | LOC: CARD 11:30 | PROVIDERS: ATTEND Internal Medicine Cardiovascular Disease | DX: I11.9 Hypertensive heart disease without heart failure (principal); R07.2 Precordial pain; I25.10 Atherosclerotic heart disease of native coronary artery without angina pectoris; I08.1 Rheumatic disorders of both mitral and tricuspid valves | CPT/HCPCS: 93306 ==

== ENCOUNTER 2021-02-12 11:00 | Day surgery (SDC) | payer MEDICARE, OTHER ==
[2021-02-12] VITALS (11 sets, daily range): BP systolic 103–138; BP diastolic 53–84
[~2021-02-12] VITALS: Ht 152 cm; Wt 60.0 kg
[2021-02-12 09:13] LABS: HEMATOCRIT 40 % (35-52); HEMOGLOBIN 12.5 g/dL (11.5-16.0); MEAN CORPUSCULAR HEMOGLOBIN 29 pg (25-34); MEAN CORPUSCULAR HGB CONC 31 g/dL (32-36); MEAN CORPUSCULAR VOLUME 92 fL (80-99); MEAN PLATELET VOLUME 9.2 fL (9.0-12.2); PLATELET COUNT 280 10^3/uL (130-400)
[2021-02-12 09:24] LABS: INR 1.1 (0.8-1.4); PROTHROMBIN TIME PATIENT 14.3 SEC (12.2-14.7)
[2021-02-12 09:26] LABS: POTASSIUM 3.6 MMOL/L (3.6-5.0)
[2021-02-12 09:27] LABS: CALCIUM 9.3 MG/DL (8.5-10.1)
[2021-02-12 09:28] LABS: TOTAL PROTEIN 7.5 GM/DL (6.4-8.2)
[2021-02-12 09:30] LABS: BILIRUBIN,TOTAL 0.6 MG/DL (0.1-1.0)
[2021-02-12 09:32] LABS: CREATININE SERUM 0.84 MG/DL (0.60-1.30)
--- NOTE | 2021-02-12 09:37 | Diagnostic Imaging Report ---
HISTORY: Coronary artery disease. Abnormal echocardiogram. TECHNIQUE: Frontal view of the chest. COMPARISON: 12/04/2019 FINDINGS: Lung volumes are normal. No focal consolidation is seen. There is increased density symmetrically at the lung apices. This is thought to be due to positioning and overlapping structures at the edge of the [id number]-kf-ukee. There is mild cardiomegaly. Sternotomy wires are noted. There is no pleural effusion or pneumothorax. IMPRESSION: 1. Mild cardiomegaly with no acute pulmonary abnormality seen. 2. Symmetric increased density at the lung apices. This is thought to be due to overlapping structures and patient positioning. Repeat chest x-ray, possibly with lordotic view, could be considered. Dictated by: Dictated on workstation # [id number]
[~2021-02-12 11:00] MED LIST changes: +CYAN-41 PO; +HEParin (CATH LAB) 2,000 ML IV ONE; +LIDOCAINE 1% INJ 20 ML 20 ML VIAL ONE; +NS IV 1000 ML 1,000 ML IV SCH; +NS IV 1000 ML 1,000 ML ONE; +OMEG-118 PO; +PRAS10TA10 PO
[2021-02-12] MEDS ORDERED: fentaNYL INJ 100 MCG/2 ML AMP ONE (11:22)
[2021-02-12] MEDS ORDERED: MIDAZOLAM 5 MG/5 ML (VERSED) VIAL ONE (11:22)
--- NOTE | 2021-02-12 11:24 | Conscious Sedation/ASA ---
Conscious Sedation Pre-Proced Time 11:24 ASA Score 3 For ASA 3 and 4: Consider anesthesia and medical clearance. Also, for patients with a history of failed moderate sedation consider anesthesia. Airway Lungs Heart ASA score ASA 1: a normal healthy patient ASA 2: a patient with a mild systemic disease (mid diabetes, controlled hypertension, obesity x ASA 3: a patient with a severe systemic disease that limits activity (angina, COPD, prior Myocardial infarction) ASA 4: a patient with an incapacitating disease that is a constant threat to life (CHF, renal failure) ASA 5: a moribund patient not expected to survive 24 hrs. (ruptured aneurysm) ASA 6: a declared brain- patient whose organs are being harvested. For emergent operations, add the letter E after the classification Mallampati Classification Grade 3 Sedation Plan Analgesia, Amnesia, Plan communicated to team members, Discussed options with patient/fam, Discussed risks with patient/fam The patient is an appropriate candidate to undergo the planned procedure, sedation, and anesthesia. The patient immediately re-assessed prior to indication. HERMAN TEJEDA MD Feb 12, 2021 11:24
--- NOTE | 2021-02-12 12:12 | Discharge Inst-Post CATH ---
Discharge Inst-CATH/EP Problems Reviewed?: Yes Post Cardiac Cath/EP D/C Inst Follow Up/Plan Appointment with Dr. Solorzano's office in 2 to 4 weeks <b>CARDIAC CATH/EP PROCEDURE DISCHARGE INSTRUCTIONS</b> ACTIVITY * Go Home directly and rest. * Limit activity of the leg (or wrist if it was used) for 7 days including aer obics, swimming, jogging, bicycling, etc. * Restrict stair-climbing for 7 days if possible, if not, climb up with your non-cath leg, then bring together on the same step. * Avoid lifting, pushing, pulling or excessive movement of the affected extremi ty for 7 days. * Customary sexual activity may be resumed after 2 days-use caution not to use a position that strains or causes pain to the affected extremity. * No driving for 24 hours. * NO SMOKING. * Avoid straining for bowel movements for 7 days. * Gentle walking on level ground is allowed. * Returning to work will depend on the type of procedure and the results. Your doctor will discuss this with you. CALL YOUR DOCTOR FOR ANY OF THE FOLLOWING: *If bleeding from the puncture site occurs- Apply gentle pressure to site with clean cloth and call your doctor or EMS. * If a knot or lump forms under the skin, increases in size, or causes pain. * If bruising appears to be worsening or moving further down your leg instead of disappearing. * Temperature above 101 F. CARE OF YOUR GROIN INCISION; * Bruising or purple discoloration of the skin near the puncture site is common. * You may shower only, no bathtub bathing for 5 days. Be careful to avoid slipping as your leg may feel stiff. * If a closure device was used on your femoral artery, please see the attached guide regarding care of the device and your leg. * Leave dressing on FOR 24 hours. CARE OF YOUR WRIST INCISION; * Bruising or purple discoloration of the skin near the puncture site is common. * You may shower. * DO NOT submerge wrist. * Leave dressing on FOR 24 hours. HERMAN SOLORZANO MD Feb 12, 2021 12:12
[2021-02-12] MEDS ORDERED: NS IV 1000 ML 1,000 ML IV SCH (12:15)
[2021-02-12] MEDS ORDERED: PATIENT MAY USE OWN MEDS, ALL PO SCH (12:15)
--- NOTE | 2021-02-12 12:18 | Cardiac Cath Report ---
Cardiac Cath Report Physician (s)/Electrician Powerhouse (s) Physician HERMAN TEJEDA MD Pre-Procedure Diagnosis Pre-Procedure Diagnosis: Coronary artery disease, severe mitral regurgitation Post-Procedure Note Procedure Start Date: Feb 12, 2021 Name of Procedure: Right and left heart catheterization Findings/Procedure Note PROCEDURE NOTE: 75-year-old lady with extensive history of coronary artery disease, multiple intervention in the past, has severe mitral regurgitation pulmonary hypertension, severe tricuspid regurgitation, being referred for evaluation for possible mitral and tricuspid valve repair. After explaining the procedure to the patient, all pros and cons were explained, all questions were answered. The patient signed the consent and then she was placed on the cardiac catheterization laboratory. Groin was prepped SL fashion local anesthesia was used. Sheath placed in the right femoral artery and right femoral vein. Balloon-tip [place]-Fabiola catheter was advanced to the pulmonary capillary wedge wedge position, pressure was measured, pullback to the PA then RV then RA positions, cardiac output and oxygen saturation pressure were measured. Mariza right and left catheter were used to access the coronary sy stem. Mariza right system was advanced to the left ventricular cavity, pressure was measured, pullback LV to aorta was done. At the end of the procedure the sheath was removed. Closure device deployed, venous sheath was removed with manual pressure FINDINGS: Hemodynamics LV 130/16, end-diastolic pressure of 16 Aorta 128/57 mean of 80 RV 36/12, end-diastolic pressure of 12 PA 38/17 mean of 25 RA 12 Pulmonary capillary wedge pressure 14 Oxygen saturation FA 93.3 PA 65.7 RV 65.9 L RA 66.6 MRA 54.5 HRA 61.2 The step up in the MRA was noted, patient has history of ASD closure, could be due to the delay in running the saturations Cardiac output by thermodilution 2.8, by Radha equation 2.22 Cardiac index by thermodilution 1.79, by Radha 1.42 ANATOMY: Left Main is free of obstructive disease Left Anterior Descending has multiple stents which is patent, mild disease nonobstructive disease Left Circumflex has multiple stents, patent with no obstructive disease Right Coronary Artery has multiple stents patent with mild distal disease nonobstructive disease LV Gram was not done, pressure was measured CONCLUSION: 1. Multiple stents in the LAD, left circumflex artery and right coronary artery and they are all patent with mild disease distally nonobstructive disease 2. Normal left ventricular end-diastolic pressure 3. Moderate pulmonary hypertension, severe mitral regurgitation DISCUSSION AND RECOMMENDATION: Patient will be referred for evaluation for mitral valve repair, possible tricuspid valve repair Anesthesia Type: Conscious Sedation Estimated blood loss (mL): 25 ml Contrast Amount: 29 ml Total Radiation Dose: 217 mGy Post-Procedure Diagnosis Post-operative diagnosis: Coronary artery disease Severe mitral regurgitation Pulmonary hypertension Hypertension Hyperlipidemia HERMAN TEJEDA MD Feb 12, 2021 12:18
== END 2021-02-12 17:00 | disposition home or self-care (01) ==
LOC: CATH 11:00 → CSD 13:17 → CATH 17:00
PROVIDERS: ATTEND Internal Medicine Cardiovascular Disease
DX: I08.1 Rheumatic disorders of both mitral and tricuspid valves (principal); I25.10 Atherosclerotic heart disease of native coronary artery without angina pectoris; I27.20 Pulmonary hypertension, unspecified; I10 Essential (primary) hypertension; E78.5 Hyperlipidemia, unspecified; F17.290 Nicotine dependence, other tobacco product, uncomplicated; I48.0 Paroxysmal atrial fibrillation; F32.9 Major depressive disorder, single episode, unspecified; I65.23 Occlusion and stenosis of bilateral carotid arteries; F41.9 Anxiety disorder, unspecified; R06.83 Snoring; Z95.5 Presence of coronary angioplasty implant and graft; Z79.899 Other long term (current) drug therapy; Z79.890 Hormone replacement therapy; Z88.8 Allergy status to other drugs, medicaments and biological substances
CPT/HCPCS: 71045; 80053; 80061; 82810; 85027; 85610; 85730; 87081; 93460; C1760; C1769; C1894 ×2; 36415

== ENCOUNTER → 2021-03-03 | Outpatient (CLI) | payer MEDICARE, OTHER ==
[~2021-03-03] MED LIST changes: -HEParin (CATH LAB) 2,000 ML IV ONE; -LIDOCAINE 1% INJ 20 ML 20 ML VIAL ONE; -NS IV 1000 ML 1,000 ML IV SCH; -NS IV 1000 ML 1,000 ML ONE
== END ==
LOC: LABNPT 06:31
PROVIDERS: ATTEND Nurse Practitioner Family
DX: Z01.812 Encounter for preprocedural laboratory examination (principal); Z20.822 Contact with and (suspected) exposure to COVID-19
CPT/HCPCS: 87635

== ENCOUNTER → 2021-05-19 | Outpatient (CLI) | payer MEDICARE, OTHER ==
[~2021-05-19] MED LIST changes: -AMIO200T6 PO; +AMIO200T65 PO
== END ==
LOC: CARD 11:00
PROVIDERS: ATTEND Nurse Practitioner Family
DX: I08.1 Rheumatic disorders of both mitral and tricuspid valves (principal); I11.9 Hypertensive heart disease without heart failure; Z95.818 Presence of other cardiac implants and grafts; Z98.890 Other specified postprocedural states
CPT/HCPCS: 93306

== ENCOUNTER → 2022-02-24 | Outpatient (CLI) | payer MEDICARE, OTHER ==
--- NOTE | 2022-02-24 11:42 | Diagnostic Imaging Report ---
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 The lungs are well aerated and clear. No large pleural effusion or pneumothorax is seen. The visualized osseous structures show no acute abnormalities. Sternotomy wires are noted. IMPRESSION: 1. No acute cardiopulmonary process. Dictated by: Dictated on workstation # [id number]
== END ==
LOC: CARD 12:00
PROVIDERS: ATTEND Physician Assistant
DX: Z79.899 Other long term (current) drug therapy (principal)
CPT/HCPCS: 71046; C8929; 93306

== ENCOUNTER 2022-05-11 10:40 | Day surgery (SDC) | payer MEDICARE, OTHER ==
[2022-05-11] VITALS (9 sets, daily range): BP systolic 106–127; BP diastolic 55–75
[~2022-05-11] VITALS: Ht 152.4 cm; Wt 60.0 kg
[2022-05-11] MEDS ORDERED: HEParin (CATH LAB) 2,000 ML IV ONE (10:44)
[2022-05-11] MEDS ORDERED: LIDOCAINE 1% INJ 30 ML (XYLOCAINE) VIAL ONE (10:44)
[2022-05-11] MEDS ORDERED: NS IV 1000 ML 1,000 ML ONE (10:44)
[2022-05-11] MEDS ORDERED: NS IV 1000 ML 1,000 ML IV SCH ×2 (10:45→17:30)
--- NOTE | 2022-05-11 11:17 | Diagnostic Imaging Report ---
INDICATION: Shortness of breath. Comparison with 02/12/2021. FINDINGS: Portable chest. Cardiomegaly with median sternotomy changes again noted. The lungs are well-aerated and clear. There is no evidence of pulmonary edema. No pneumothorax or pleural effusion. IMPRESSION: Postoperative residue with no acute changes. Dictated by: Dictated on workstation # [id number]
[2022-05-11] MEDS ORDERED: BUME2TAB7 PO (11:52)
[2022-05-11] MEDS ORDERED: DIPH50CA33 PO (11:52)
[2022-05-11] MEDS ORDERED: POTA-177 PO (11:52)
[2022-05-11] MEDS ORDERED: EVOL140P3 SQ (11:52)
[2022-05-11] MEDS ORDERED: PANT40TA52 PO (11:52)
[2022-05-11] MEDS ORDERED: OMEG100032 PO (11:52)
[2022-05-11] MEDS ORDERED: ACET-2055 PO (11:52)
[2022-05-11] MEDS ORDERED: LEVO50CA4 PO (12:00)
[2022-05-11 12:18] LABS: HEMATOCRIT 26 % (35-52); MEAN CORPUSCULAR HEMOGLOBIN 22 pg (25-34); MEAN CORPUSCULAR HGB CONC 30 g/dL (32-36); MEAN CORPUSCULAR VOLUME 74 fL (80-99); PLATELET COUNT 289 10^3/uL (130-400); WHITE BLOOD COUNT 3.1 10^3/uL (4.3-11.0)
[2022-05-11 12:19] LABS: HEMOGLOBIN 7.8 g/dL (11.5-16.0)
[2022-05-11 12:27] LABS: INR 1.1 (0.8-1.4); PROTHROMBIN TIME PATIENT 15.2 SEC (12.2-14.7)
[2022-05-11 12:34] LABS: CALCIUM 9.3 MG/DL (8.5-10.1); CREATININE SERUM 1.01 MG/DL (0.60-1.30); POTASSIUM 3.1 MMOL/L (3.6-5.0); TOTAL PROTEIN 7.4 GM/DL (6.4-8.2)
--- NOTE | 2022-05-11 16:34 | Cardiology History & Physical ---
HPI-Cardiology Cardiology Consultation Date of Consultation 05/11/22 Date of Admission Time Seen by Provider: 16:29 Indication: Mitral regurg HPI 76-year-old lady with history of coronary artery disease, severe tricuspid regurgitation, mitral regurgitation, she was referred to [facility] for evaluation, recommended conservative management initially. Currently patient is scheduled for cardiac catheterization possible PTCA due to recurrent chest pain, for evaluation her mitral regurgitation. She had a mitral valve clip done by Dr. Krishnan. PMH-Cardiology Immunizations Up To Date Tetanus Booster (DTap): Less than 5yrs Date of Pneumonia Vaccine: Jan 25, 2013 Seasonal Allergies Seasonal Allergies: Yes Surgeries Yes (JULIET/CARDIOVERSION) Gall Bladder, Hysterectomy, Open Heart Surgery Respiratory No Cardiovascular Yes (HX OF OPEN HEART SURGERY; RELATED TO ATRIAL DEFECT) Angina, Atrial Fibrillation, Coronary Artery Disease Neurological No Genitourinary No Gastrointestinal No Musculoskeletal Yes Arthritis Endocrine No HEENT No Cancer No Psychosocial Yes Anxiety, Depression Integumentary No Social History Patient Social History Dip or chew tobacco?: No Family Hx Significant Family History: No Pertinent Family Hx Family History: FH: breast cancer 19 MOTHER FH: heart disease 19 FATHER ROS-Cardiology Review of Systems General: Chills, Fatigue Home Medications & Allergies Allergies: Coded Allergies: fenofibrate (Verified Adverse Reaction, Intermediate, CRAMPING, 01/11/17) Uncoded Allergies: DYE (Allergy, Unknown, 01/29/16) Exam-Cardiology Vital Signs Vital Signs Date Time Temp Pulse Resp B/P (MAP) Pulse Ox O2 Delivery O2 Flow Rate FiO2 05/11/22 11:09 37.4 71 18 118/63 (81) Exam General Appearance: Alert, Oriented X3, Cooperative, No Acute Distress HEENT: Atraumatic, PERRLA Respiratory: Clear to Auscultation, Normal Air Movement Cardiovascular: Regular Rate, Normal S1, Normal S2, No Murmurs Abdominal: Normal Bowel Sounds, Soft, No Tenderness, No Hepatosplenomegaly, No Masses Extremities: No Clubbing, No Cyanosis, No Edema, Normal Pulses, No Tenderness/Swelling Skin: No Rashes, No Breakdown, No Significant Lesion Neuro: Normal Gait, Normal Speech, Strength at 5/5 X4 Ext, Normal Tone, Sensation Intact Psych/Mental Status: Mental Status NL, Mood NL Results Labs Labs Laboratory Tests 05/11/22 12:00: White Blood Count 3.1L, Red Blood Count 3.58L, Hemoglobin 7.8L, Hematocrit 26L, Mean Corpuscular Volume 74L, Mean Corpuscular Hemoglobin 22L, Mean Corpuscular Hemoglobin Concent 30L, Red Cell Distribution Width 17.2H, Platelet Count 289, Mean Platelet Volume 9.0, Prothrombin Time 15.2H, INR Comment 1.1, Activated Partial Thromboplast Time 30, Sodium Level 138, Potassium Level 3.1L, Chloride Level 103, Carbon Dioxide Level 25, Anion Gap 10, Blood Urea Nitrogen 23H, Creatinine 1.01, Estimat Glomerular Filtration Rate 57, BUN/Creatinine Ratio 23, Glucose Level 86, Calcium Level 9.3, Corrected Calcium 9.3, Total Bilirubin 1.0, Aspartate Amino Transf (AST/SGOT) 36H, Alanine Aminotransferase (ALT/SGPT) 32, Alkaline Phosphatase 83, Total Protein 7.4, Albumin 4.0, Triglycerides Level 73, Cholesterol Level 152, LDL Cholesterol Direct 63, VLDL Cholesterol 15, HDL Cholesterol 78H A/P-Cardiology Admission Diagnosis Severe mitral regurgitation Coronary artery disease Hypertension Admission Status: Observation Assessment/Plan Chest pain, Having increasing episodes of chest pain. Patient has severe mitral regurgitation, had mitral clip, severe tricuspid regurgitation Patient is scheduled for right and left heart catheterization. Severe mitral regurgitation, status post mitral valve clip done by Dr. Daugherty done in March 2021, recovered well. 2D echo was done on May 19, 2021 showing normal left ventricular size, EF 45 to 50%, grade 2 diastolic dysfunction, dilated left atrium 5.89 cm, right atrial dilatation, mitral clip with moderate mitral regurgitation, moderate tricuspid regurgitation, PA pressure 35 to 40 mmHg. Improvement compared to the study of January 2021 Severe tricuspid regurgitation, reviewed with the [facility] group with Dr. Cheney and Dr Daugherty, currently recommended conservative management Dyspnea on exertion, orthopnea, I will d/c HCTZ, start Lasix 20mg daily, K-Dur 10Meq daily, repeat 2D Echo. Echocardiogram done on 02/09/2021 showing normal LV size, ejection fraction 55 to 60%, grade 1 diastolic dysfunction, dilated right heart chambers, left atrium 5.74 cm, severe MR, TR, and PA 55-60 mmHg, planning to repeat 2D echo in 6 months Coronary artery disease, Cardiac catheterization on 01/11/2017 revealing multivessel CAD. Severe stenosis requiring complex intervention. LAD has 40-50% proximal stenosis which is treated medically. Xience Alpine 3x23mm stent to proximal midportion of LAD. Left Cx had severe stenosis. Xience alpine 2.5x15, 2.5x50mm, [id number] overlapping stents deployed. Small vessel disease distally. RCA is dominant artery with severe stenosis at a long segment from proximal portion just above the bifurcation requiring complex intervention. Repeat left heart catheterization with intervention to the RCA on January 25, 2017. RCA had severe diffuse disease with subtotal occlusion proximally, resistant lesion requiring complex interventions using robb wire and postdilatation high-pressure to the proximal lesion. Total of 3 stents using Xience Alpine 2.538 mm, 2.533 mm, and 2.7523 mm. No residual stenosis. Patent stent in the LAD and 2 stents to the circumflex artery, 40 percent stenosis at the distal circumflex artery did not change compared to previous study. Had an abnormal stress test, cardiac catheterization done on December 04, 2019 showing severe proximal circumflex artery stenosis successful primary stenting using Miriam 2.5 x 12 mm expanded to 2.81 mm with noncompliant balloon with excellent results, patent stent in the LAD with mild disease distally, patent multiple stents in the right coronary artery. Cardiac catheterization was done on 02/12/2021 showing multiple stents in the LAD, circumflex and right coronary artery and all patent with small vessel disease distally with normal left ventricular end-diastolic pressure, moderate pulmonary hypertension. Ultra rapid metabolizer Plavix, allergy to Brilinta causing rash and pruritus. History of intolerance to beta blockers secondary to fatigue Paroxysmal atrial fibrillation, underwent JULIET with electrical cardioversion in 2019, has been maintained in sinus rhythm. Continue to monitor. Has been maintained on Amiodarone, I will evaluate CXR, TSH, LFTs. [id number] score of 4, yearly risk of stroke without oral anticoagulation is 4 percent, maintained on Xarelto 20 mg daily. Atrial septal defect, history of repair in 1979, most recent echocardiogram showed normal LV function with left atrial enlargement with pulmonary artery pressure of 35 mmHg mild MR, [id number] TR. Continue to monitor Mild bilateral carotid stenosis, ultrasound was done in June 2020, I will reevaluate carotid duplex. Dyspnea still having some dyspnea on exertion, no chest pain. No palpitation. No syncope , patient reports improvement since stent placement. Hypertension, controlled. Continue to monitor blood pressure/heart rate. Hyperlipidemia, maintained on Repatha, intolerant to all other cholesterol meds, lipid profile done in January 2021 showing total cholesterol 194, HDL 76, LDL 112, triglyceride 98. Continue to monitor Elevated liver enzymes, returned to normal on the last test in September 2020. Continue to monitor Lower extremity pain, venous congestion, usually by the end of the day. Venous study negative for insufficiency. Continue to monitor. Anxiety, depression, mild, patient has significant stress at home. better since started on HERMAN García MD May 11, 2022 16:34
--- NOTE | 2022-05-11 16:35 | Cardiac Procedure Note-CS/ASA ---
Pre-Procedure Note Pre-Op Procedure Note Date of Available H&P: May 11, 2022 Date H&P Reviewed: May 11, 2022 Time H&P Reviewed: 16:34 History & Physical: H&P Reviewed, Patient Examed, No changes noted Pre-Operative Diagnosis: Coronary artery disease, severe mitral regurgitation, Severe tricuspid regu Conscious Sedation Pre-Proced Time 16:34 ASA Score 3 For ASA 3 and 4: Consider anesthesia and medical clearance. Also, for patients with a history of failed moderate sedation consider anesthesia. Airway Lungs Heart ASA score ASA 1: a normal healthy patient ASA 2: a patient with a mild systemic disease (mid diabetes, controlled hypertension, obesity ASA 3: a patient with a severe systemic disease that limits activity (angina, COPD, prior Myocardial infarction) ASA 4: a patient with an incapacitating disease that is a constant threat to life (CHF, renal failure) ASA 5: a moribund patient not expected to survive 24 hrs. (ruptured aneurysm) ASA 6: a declared brain- patient whose organs are being harvested. For emergent operations, add the letter E after the classification Mallampati Classification Grade 3 Sedation Plan Analgesia, Amnesia, Plan communicated to team members, Discussed options with patient/fam, Discussed risks with patient/fam The patient is an appropriate candidate to undergo the planned procedure, sedation, and anesthesia. The patient immediately re-assessed prior to indication. HERMAN TEJEDA MD May 11, 2022 16:35
[2022-05-11] MEDS ORDERED: diphenhydrAMINE 50 MG/ML INJ (BENADRYL) ONE (16:45)
[2022-05-11] MEDS ORDERED: fentaNYL INJ 100 MCG/2 ML AMP ONE (16:45)
[2022-05-11] MEDS ORDERED: MIDAZOLAM 5 MG/5 ML (VERSED) VIAL ONE (16:46)
[2022-05-11] MEDS ORDERED: methylPREDNISolone 125 MG (Solu-MEDROL) VIAL ONE (16:46)
[2022-05-11] MEDS ORDERED: NON-FORMULARY MEDICATION 1 EA EA (Levothyroxine Sodium (Levothyroxine) 75 MCG) PO SCH (17:30)
[2022-05-11] MEDS ORDERED: PATIENT MAY USE OWN MEDS, ALL PO SCH (17:30)
--- NOTE | 2022-05-11 17:35 | Cardiac Cath Report ---
Cardiac Cath Report Physician (s)/[employer]otive (s) Physician HERMAN TEJEDA MD Pre-Procedure Diagnosis Pre-Procedure Diagnosis: Coronary artery disease, severe mitral regurgitation, Severe tricuspid regu Post-Procedure Note Procedure Start Date: May 11, 2022 Name of Procedure: Right and left heart catheterization Findings/Procedure Note PROCEDURE NOTE: 76-year-old lady with severe mitral regurgitation, severe tricuspid regurgitation, severe multivessel coronary artery disease, was referred for reevaluating her coronary anatomy and having right and left heart catheterization possible redo surgery, may require mitral and/or tricuspid clip. After explaining the procedure to the patient, all pros and cons were explained, all questions were answered. The patient signed the consent and then she was placed in the cardiac catheterization laboratory. Groin was prepped in SL fashion local anesthesia was used. Sheath placed in the right femoral vein, sheath was placed in the right femoral artery. Mariza' right and left catheter were used to access the coronary system. Pigtail was used to access the left ventricular cavity. Left ventriculogram was not done, pressure was measured Kirkwood-Fabiola catheter was advanced to the right atrium, right ventricle, main pulmonary artery into the wedge position, oxygen saturation was measured at each chamber, cardiac output was calculated, thermodilution cardiac output also was measured. At the end of the procedure the sheath was removed. Closure device was deployed FINDINGS: Hemodynamics LV 123/12, end-diastolic pressure of 12 Aorta 134/67 mean of 84 PA 43/20 mean of 30 Pulmonary capillary wedge pressure 29 RV 46/13, end-diastolic pressure of 13 RA 9 Oxygen saturation, pulmonary capillary wedge sample 52% FA 92% PA 52% RV 52% RA 52% Cardiac output by thermodilution 3.47, cardiac index by thermodilution 2.22 Cardiac output by Radha 3.50, cardiac index by Radha 2.24. ANATOMY: Left Main is free of obstructive disease Left Anterior Descending has a patent stent with mild disease nonobstructive disease Left Circumflex has patent multiple stents with mild disease nonobstructive disease Right Coronary Artery has patent multiple stents with no obstructive disease LV Gram was not done, pressure was measured CONCLUSION: 1. Pulmonary hypertension as described above, appears to be moderate. 2. Wave pressure shows tall V wave in the right atrium suggestive of severe tricuspid regurgitation 3. Multiple stents in all the coronary system that are patent with mild disease nonobstructive disease 4. Hemodynamics described above DISCUSSION AND RECOMMENDATION: Patient will be discharged home today, referral for evaluation for possible tricuspid valve clip Anesthesia Type: Conscious Sedation Estimated blood loss (mL): 15 ml Contrast Amount: 37 ml Total Radiation Dose: 203 mGy Post-Procedure Diagnosis Post-operative diagnosis: Severe mitral regurgitation Severe tricuspid regurgitation Coronary artery disease Hypertension HERMAN TEJEDA MD May 11, 2022 17:35
[2022-05-11] MEDS ORDERED: PATIENT MAY USE OWN MEDS, ALL MC SCH (18:00)
[2022-05-11] MEDS ORDERED: ALPRAZolam 0.25 MG (XANAX) TAB PO SCH (21:00)
[2022-05-11] MEDS ORDERED: dilTIAZem120 MG (CARDIZEM CD) CAP PO SCH (21:00)
[2022-05-12] VITALS: BP 105/60
[2022-05-12 04:00] VITALS: BP 110/97
[2022-05-12] MEDS ORDERED: KCL 20 MEQ TAB (K-DUR) PO ONE (06:15)
--- NOTE | 2022-05-12 06:15 | Discharge Inst-Post CATH ---
Discharge Inst-CATH/EP Problems Reviewed?: Yes Post Cardiac Cath/EP D/C Inst Follow Up/Plan Appointment with Dr Solorzano in 2-4 weeks <b>CARDIAC CATH/EP PROCEDURE DISCHARGE INSTRUCTIONS</b> ACTIVITY * Go Home directly and rest. * Limit activity of the leg (or wrist if it was used) for 7 days including aerobics, swimming, jogging, bicycling, etc. * Restrict stair-climbing for 7 days if possible, if not, climb up with your non-cath leg, then bring together on the same step. * Avoid lifting, pushing, pulling or excessive movement of the affected extremity for 7 days. * Customary sexual activity may be resumed after 2 days-use caution not to use a position that strains or causes pain to the affected extremity. * No driving for 24 hours. * NO SMOKING. * Avoid straining for bowel movements for 7 days. * Gentle walking on level ground is allowed. * Returning to work will depend on the type of procedure and the results. Your doctor will discuss this with you. CALL YOUR DOCTOR FOR ANY OF THE FOLLOWING: *If bleeding from the puncture site occurs- Apply gentle pressure to site with clean cloth and call your doctor or EMS. * If a knot or lump forms under the skin, increases in size, or causes pain. * If bruising appears to be worsening or moving further down your leg instead of disappearing. * Temperature above 101 F. CARE OF YOUR GROIN INCISION; * Bruising or purple discoloration of the skin near the puncture site is common. * You may shower only, no bathtub bathing for 5 days. Be careful to avoid slipping as your leg may feel stiff. * If a closure device was used on your femoral artery, please see the attached guide regarding care of the device and your leg. * Leave dressing on FOR 24 hours. CARE OF YOUR WRIST INCISION; * Bruising or purple discoloration of the skin near the puncture site is common. * You may shower. * DO NOT submerge wrist. * Leave dressing on FOR 24 hours. HERMAN SOLORZANO MD May 12, 2022 06:15
[2022-05-12] MEDS ORDERED: LEVOTHYROXINE 50 MCG (LEVOTHROID) TAB PO SCH (06:30)
[2022-05-12] MEDS ORDERED: KCL 20 MEQ TAB (K-DUR) PO SCH (07:00)
[2022-05-12 07:56] VITALS: BP 123/56
--- NOTE | 2022-05-12 07:58 | Cardiology Progress Note ---
Subjective Date Seen by Provider: May 12, 2022 Time Seen by Provider: 07:55 Subjective/Events-last exam Patient was seen at bedside, laying down comfortably, feeling well. No new complaint Review of Systems General: No Chills, No Night Sweats, No Fatigue, No Malaise, No Appetite, No Other HEENT: No Head Aches, No Visual Changes, No Eye Pain, No Ear Pain, No Dysphas ia, No Sinus Congestion, No Post Nasal Drip, No Sore Throat, No Other Pulmonary: No Dyspnea, No Cough, No Pleuritic Chest Pain, No Other Cardiovascular: No: Chest Pain, Palpitations, Orthopnea, Paroxysmal Noc. Dyspnea, Edema, Lt Headedness, Other Objective-Cardiology Exam Last Set of Vital Signs Vital Signs 05/12/22 05/12/22 04:00 07:12 Temp 36.5 Pulse 71 Resp 11 B/P (MAP) 110/97 (101) Pulse Ox 94 O2 Delivery Room Air I&O Intake and Output 05/12/22 00:00 Intake Total 500 ml Balance 500 ml Intake Oral 500 ml # Voids 1 Daily Weight Change No General: Alert, Oriented X3, Cooperative, No Acute Distress HEENT: Atraumatic, PERRLA Neck: Supple, No JVD Lungs: Clear to Auscultation, Normal Air Movement Heart: Regular Rate, Normal S1, Normal S2, No Murmurs Abdomen: Normal Bowel Sounds, Soft, No Tenderness, No Hepatosplenomegaly, No Masses Extremities: No Clubbing, No Cyanosis, No Edema, Normal Pulses, No Tenderness/Swelling Skin: No Rashes, No Breakdown, No Significant Lesion Neuro: Normal Gait, Normal Speech, Strength at 5/5 X4 Ext, Normal Tone, Sensation Intact Psych/Mental Status: Mental Status NL, Mood NL Results Lab Laboratory Tests 05/11/22 12:00 A/P-Cardiology Admission Diagnosis Severe mitral regurgitation Coronary artery disease Hypertension Assessment/Plan Chest pain, Having increasing episodes of chest pain. Patient has severe mitral regurgitation, had mitral clip, severe tricuspid regurgitation Status post right and left heart catheterization, patent stents in the coronary system, pulmonary hypertension PA pressure 40 to 45 mmHg, cardiac output 3.5 Severe mitral regurgitation, status post mitral valve clip done by Dr. Daugherty done in March 2021, recovered well. Severe tricuspid regurgitation noted on echo 2D echo was done on May 19, 2021 showing normal left ventricular size, EF 45 to 50%, grade 2 diastolic dysfunction, dilated left atrium 5.89 cm, right atrial dilatation, mitral clip with moderate mitral regurgitation, moderate tricuspid regurgitation, PA pressure 35 to 40 mmHg. Improvement compared to the study of January 2021 Severe tricuspid regurgitation, reviewed with the [facility] group with Dr. Cheney and Dr Daugherty, currently recommended conservative management Dyspnea on exertion, orthopnea, I will d/c HCTZ, start Lasix 20mg daily, K-Dur 10Meq daily, repeat 2D Echo. Echocardiogram done on 02/09/2021 showing normal LV size, ejection fraction 55 to 60%, grade 1 diastolic dysfunction, dilated right heart chambers, left atrium 5.74 cm, severe MR, TR, and PA 55-60 mmHg, planning to repeat 2D echo in 6 months Coronary artery disease, Cardiac catheterization on 01/11/2017 revealing multivessel CAD. Severe stenosis requiring complex intervention. LAD has 40-50% proximal stenosis which is treated medically. Xience Alpine 3x23mm stent to proximal midportion of LAD. Left Cx had severe stenosis. Xience alpine 2.5x15, 2.5x50mm, 2.76x86np overlapping stents deployed. Small vessel disease distally. RCA is dominant artery with severe stenosis at a long segment from proximal portion just above the bifurcation requiring complex intervention. Repeat left heart catheterization with intervention to the RCA on January 25, 2017. RCA had severe diffuse disease with subtotal occlusion proximally, resistant lesion requiring complex interventions using robb wire and postdilatation high-pressure to the proximal lesion. Total of 3 stents using Xience Alpine 2.538 mm, 2.533 mm, and 2.7523 mm. No residual stenosis. Patent stent in the LAD and 2 stents to the circumflex artery, 40 percent stenosis at the distal circumflex artery did not change compared to previous study. Had an abnormal stress test, cardiac catheterization done on December 04, 2019 showing severe proximal circumflex artery stenosis successful primary stenting using Miriam 2.5 x 12 mm expanded to 2.81 mm with noncompliant balloon with excellent results, patent stent in the LAD with mild disease distally, patent multiple stents in the right coronary artery. Cardiac catheterization was done on 02/12/2021 showing multiple stents in the LAD, circumflex and right coronary artery and all patent with small vessel disease distally with normal left ventricular end-diastolic pressure, moderate pulmonary hypertension. Cardiac catheterization was carried out on May 11, 2022 showing patent stents in the LAD, circumflex and right coronary artery. Ultra rapid metabolizer Plavix, allergy to Brilinta causing rash and pruritus. History of intolerance to beta blockers secondary to fatigue Paroxysmal atrial fibrillation, underwent JULIET with electrical cardioversion in 2019, has been maintained in sinus rhythm. Continue to monitor. Has been maintained on Amiodarone, I will evaluate CXR, TSH, LFTs. [id number] score of 4, yearly risk of stroke without oral anticoagulation is 4 percent, maintained on Xarelto 20 mg daily. Atrial septal defect, history of repair in 1979, most recent echocardiogram showed normal LV function with left atrial enlargement with pulmonary artery pressure of 35 mmHg mild MR, [id number] TR. Continue to monitor Mild bilateral carotid stenosis, ultrasound was done in June 2020, I will reevaluate carotid duplex. Dyspnea still having some dyspnea on exertion, no chest pain. No palpitation. No syncope , patient reports improvement since stent placement. Hypertension, controlled. Continue to monitor blood pressure/heart rate. Hyperlipidemia, maintained on Repatha, intolerant to all other cholesterol meds, lipid profile done in January 2021 showing total cholesterol 194, HDL 76, LDL 112, triglyceride 98. Continue to monitor Elevated liver enzymes, returned to normal on the last test in September 2020. Continue to monitor Lower extremity pain, venous congestion, usually by the end of the day. Venous study negative for insufficiency. Continue to monitor. Anxiety, depression, mild, patient has significant stress at home. better since started on Xanax HERMAN TEJEDA MD May 12, 2022 07:57
[2022-05-12] MEDS ORDERED: NON-FORMULARY MEDICATION 1 EA EA (Fluoxetine HCl (Prozac) 40 MG) PO SCH (09:00)
[2022-05-12] MEDS ORDERED: PRASUGREL 10 MG (EFFIENT) TABLET PO SCH (09:00)
[2022-05-12] MEDS ORDERED: PANTOPRAZOLE 40 MG (PROTONIX) TAB PO SCH (09:00)
[2022-05-12] MEDS ORDERED: FLUoxetine HCL 20 MG (PROzac) CAP PO SCH (09:00)
[2022-05-12] MEDS ORDERED: BUMETANIDE 1 MG (BUMEX) TAB PO SCH (09:00)
[2022-05-12] MEDS ORDERED: NON-FORMULARY MEDICATION 1 EA EA (Bumetanide 2 MG) PO SCH (09:00)
[2022-05-12] MEDS ORDERED: NON-FORMULARY MEDICATION 1 EA EA (Potassium Chloride 20 MEQ) PO SCH (09:00)
[2022-05-12] MEDS ORDERED: ACETAMINOPHEN ER 650 MG (TYLENOL ARTHRITIS) PO SCH (09:00)
[2022-05-12 09:47] VITALS: BP 123/56
[2022-05-14] MEDS ORDERED: LEVOTHYROXINE 50 MCG (LEVOTHROID) TAB PO SCH (06:30)
== END 2022-05-12 09:14 | disposition home or self-care (01) ==
LOC: CATH 10:40 → CSD 17:43 → CATH 05-12 09:14
PROVIDERS: ATTEND Internal Medicine Cardiovascular Disease
DX: I25.10 Atherosclerotic heart disease of native coronary artery without angina pectoris (principal); I08.1 Rheumatic disorders of both mitral and tricuspid valves; I11.0 Hypertensive heart disease with heart failure; I50.30 Unspecified diastolic (congestive) heart failure; I48.0 Paroxysmal atrial fibrillation; Z79.01 Long term (current) use of anticoagulants; I10 Essential (primary) hypertension; E78.5 Hyperlipidemia, unspecified; Z79.899 Other long term (current) drug therapy
CPT/HCPCS: 71045; 80053; 80061; 85027; 85610; 85730; 87081; 93005; 93460; C1760; C1769; C1894 ×2; 36415

== ENCOUNTER → 2022-06-02 | Outpatient (CLI) | payer MEDICARE, OTHER ==
[~2022-06-02] MED LIST changes: +ACET-2055 PO; +BUME2TAB7 PO; +DIPH50CA33 PO; +EVOL140P3 SQ; +LEVO50CA4 PO; +OMEG100032 PO; +PANT40TA52 PO; +POTA-177 PO
== END ==
LOC: CARD 09:25
PROVIDERS: ATTEND Internal Medicine Cardiovascular Disease
DX: I08.3 Combined rheumatic disorders of mitral, aortic and tricuspid valves (principal); I10 Essential (primary) hypertension
CPT/HCPCS: 93306

== ENCOUNTER → 2022-06-24 | Outpatient (CLI) | payer MEDICARE, OTHER ==
[2022-06-24 14:59] LABS: HEMATOCRIT 26 % (35-52); HEMOGLOBIN 7.5 g/dL (11.5-16.0); MEAN CORPUSCULAR HEMOGLOBIN 21 pg (25-34); MEAN CORPUSCULAR HGB CONC 29 g/dL (32-36); MEAN CORPUSCULAR VOLUME 73 fL (80-99); MEAN PLATELET VOLUME 8.6 fL (9.0-12.2); PLATELET COUNT 258 10^3/uL (130-400); WHITE BLOOD COUNT 5.1 10^3/uL (4.3-11.0)
[2022-06-24 15:23] LABS: CALCIUM 8.6 MG/DL (8.5-10.1); CREATININE SERUM 1.16 MG/DL (0.60-1.30); POTASSIUM 3.9 MMOL/L (3.6-5.0)
== END ==
LOC: LAB 14:44
PROVIDERS: ATTEND Physician Assistant Medical
DX: D64.9 Anemia, unspecified (principal)
CPT/HCPCS: 36415; 80048; 85027

== ENCOUNTER → 2022-06-27 | Outpatient (CLI) | payer MEDICARE, OTHER ==
[2022-06-27 10:27] LABS: HEMATOCRIT 30 % (35-52); HEMOGLOBIN 8.7 g/dL (11.5-16.0); MEAN CORPUSCULAR HEMOGLOBIN 21 pg (25-34); MEAN CORPUSCULAR HGB CONC 29 g/dL (32-36); MEAN CORPUSCULAR VOLUME 74 fL (80-99); PLATELET COUNT 306 10^3/uL (130-400); WHITE BLOOD COUNT 4.1 10^3/uL (4.3-11.0)
== END ==
LOC: LAB 10:09
PROVIDERS: ATTEND Physician Assistant Medical
DX: D64.9 Anemia, unspecified (principal)
CPT/HCPCS: 36415; 85027

== ENCOUNTER → 2022-07-04 | Outpatient (CLI) | payer MEDICARE, OTHER ==
[2022-07-04 11:24] LABS: HEMATOCRIT 31 % (35-52); HEMOGLOBIN 8.7 g/dL (11.5-16.0); MEAN CORPUSCULAR HEMOGLOBIN 21 pg (25-34); MEAN CORPUSCULAR HGB CONC 28 g/dL (32-36); MEAN CORPUSCULAR VOLUME 74 fL (80-99); MEAN PLATELET VOLUME 9.4 fL (9.0-12.2); PLATELET COUNT 347 10^3/uL (130-400); WHITE BLOOD COUNT 3.9 10^3/uL (4.3-11.0)
== END ==
LOC: LAB 10:54
PROVIDERS: ATTEND Physician Assistant Medical
DX: D64.9 Anemia, unspecified (principal)
CPT/HCPCS: 36415; 85027

== ENCOUNTER 2023-05-04 13:54 | Emergency (ER) | payer MEDICARE, OTHER ==
[~2023-05-04] VITALS: Ht 152.4 cm; Wt 55.0 kg
[~2023-05-04 13:54] MED LIST changes: -MELA1TAB20 PO; +MELA1TAB72 PO
--- NOTE | 2023-05-04 14:12 | ED Cardiac General ---
History of Present Illness General Chief Complaint: Cardiac/General Problems Stated Complaint: ELEVATED HEART RATE Nursing Triage Note: PT AMB TO ED BY POV FROM PCP WITH C/O AFIB WITH RVR. PT REPORTS SHE WAS AT DR. LOO OFFICE FOR A ROUTINE VISIT AND WAS IN AFIB. PCP SENT PT TO ED PER DR. SOLORZANO. PT HAS HX A FIB. DENIES ANY SX AT THIS TIME. Source: patient Exam Limitations: no limitations History of Present Illness Date Seen by Provider: May 04, 2023 Time Seen by Provider: 13:55 Initial Comments 77-year-old female presents emergency room today for elevated heart rate. She has a history of atrial fibrillation. She states her heart "goes into A-fib all the time." She is asymptomatic outside of some mild palpitations. No dizziness lightheadedness shortness of breath or chest pain. She sees Dr. Solorzano. She tells me she has been cardioverted multiple times. She is on Xarelto and has not missed any doses. She tells me the last time Dr. Solorzano tried to cardiovert her it "did not work." She has been in atrial fibrillation since that time though she states her heart rate is usually normal. No new medications or changes in medicines. Record review shows she is on Xarelto, Cardizem, Bumex All other systems reviewed and negative except documented per HPI. Voice recognition software was used to help create this chart Allergies and Home Medications Allergies Coded Allergies: fenofibrate (Verified Adverse Reaction, Intermediate, CRAMPING, 01/11/17) Uncoded Allergies: DYE (Allergy, Unknown, 01/29/16) Patient Home Medication List Home Medication List Reviewed: Yes ALPRAZolam (Xanax Tablet) 0.25 Mg Tab, 0.5 MG PO HS, (Reported) Entered as Reported by: MEGAN CHAO on 11/06/19 0815 Acetaminophen (Arthritis Pain Reliever) 650 Mg Tablet.er, 650 MG PO DAILY, (Re ported) Entered as Reported by: MEGAN CHAO on 11/23/16 0740 Acetaminophen (Arthritis Pain Relief) 650 Mg Tablet.er, 1,300 MG PO HS, (Reported) Entered as Reported by: WING WRIGHT on 05/11/22 1152 Bumetanide (Bumetanide) 2 Mg Tablet, 2 MG PO DAILY, (Reported) Entered as Reported by: WING WRIGHT on 05/11/22 115 Cyanocobalamin (Vitamin B-12) (Vitamin B-12) 1,000 Mcg Tablet, 1,000 MCG PO BID, (Reported) Entered as Reported by: WING WRIGHT on 02/12/21 0943 Diltiazem HCl (Cartia Xt) 120 Mg Cap.er.24h, 120 MG PO HS, (Reported) Entered as Reported by: KARRIE HERCULES on 07/31/20 1317 Diphenhydramine HCl (Diphenhydramine HCl) 50 Mg Capsule, 50 MG PO HS, (Reported) Entered as Reported by: WING WRIGHT on 05/11/22 115 Evolocumab (Repatha Sureclick) 140 Mg/Ml Pen.injctr, 140 MG SQ EVERY 2 WEEKS, (Reported) Entered as Reported by: WING WRIGHT on 05/11/22 115 Fluoxetine HCl (Prozac) 40 Mg Capsule, 40 MG PO DAILY, (Reported) Entered as Reported by: MEGAN CHAO on 11/23/16 0740 Levothyroxine Sodium (Levothyroxine Sodium) 50 Mcg Tablet, 50 MCG PO MON,,WED,THUR,FRI, (Reported) Entered as Reported by: MEGAN CHAO on 11/06/19 0815 Levothyroxine Sodium (Levothyroxine) 50 Mcg Capsule, 75 MCG PO SAT,SUN, (Reported) Entered as Reported by: WING WRIGHT on 05/11/22 1200 [place]-3/Dha/Epa/Fish Oil (Fish Oil 1,000 mg Softgel) 1,000 Mg (120 Mg-180 Mg) Capsule, 1,000 MG PO DAILY, (Reported) Entered as Reported by: WING WRIGHT on 05/11/22 115 Pantoprazole Sodium (Pantoprazole Sodium) 40 Mg Tablet.dr, 40 MG PO DAILY, (Reported) Entered as Reported by: WING WRIGHT on 05/11/22 115 Potassium Chloride (Potassium Chloride) 10 Meq Tab.er.prt, 20 MEQ PO DAILY, (Reported) Entered as Reported by: WING WRIGHT on 05/11/22 115 Prasugrel HCl (Prasugrel HCl) 10 Mg Tablet, 10 MG PO DAILY, (Reported) Entered as Reported by: WING WRIGHT on 02/12/21 0943 Rivaroxaban (Xarelto) 20 Mg Tablet, 20 MG PO HS, (Reported) Entered as Reported by: MEGAN CHAO on 11/06/19 0815 Review of Systems Review of Systems Constitutional: see HPI Past Gdoyeve-Gduriq-Tmgepj Hx Patient Social History Tobacco Use?: No Use of E-Cig and/or Vaping dev: No Substance use?: No Alcohol Use?: No Immunizations Up To Date Tetanus Booster (TDap): Less than 5yrs Seasonal Allergies Seasonal Allergies: Yes Past Medical History Surgeries: Yes (JULIET/CARDIOVERSION) Abdominal, Adenoidectomy, Gallbladder, Hysterectomy Respiratory: No Pneumonia Currently Using BIPAP: No Cardiac: Yes (HX OF OPEN HEART SURGERY; RELATED TO ATRIAL DEFECT) Atrial Fibrillation, Chronic Edema/Swelling, Heart Murmur, High Cholesterol, Hypertension Neurological: No Genitourinary: No Gastrointestinal: No Musculoskeletal: Yes Arthritis Endocrine: No HEENT: No Cancer: No Psychosocial: Yes Anxiety, Depression Integumentary: No Family Medical History FH: breast cancer 19 MOTHER FH: heart disease 19 FATHER No Pertinent Family Hx Physical Exam Vital Signs Vital Signs - First Documented 05/04/23 14:01 Temp 36.5 Pulse 128 Resp 14 B/P (MAP) 116/69 (85) Pulse Ox 97 O2 Delivery Room Air Capillary Refill : Less Than 3 Seconds Height, Weight, BMI Height: 5'0.00" Weight: 139lbs. 1.0oz. 63.243748dn; 23.00 BMI Method:Stated General Appearance: No Apparent Distress, WD/WN HEENT: Normal ENT Inspection, Pharynx Normal Neck: Normal Inspection, Non Tender Respiratory: Chest Non Tender, Lungs Clear, Normal Breath Sounds, No Accessory Muscle Use, No Respiratory Distress Cardiovascular: Irregularly Irregular, Tachycardia Gastrointestinal: Normal Bowel Sounds, No Organomegaly, Non Tender, Soft Extremity: Normal Capillary Refill, Normal Inspection, Non Tender, No Calf Tenderness, No Pedal Edema Neurologic/Psychiatric: Alert, Oriented x3, No Motor/Sensory Deficits Skin: Normal Color, Warm/Dry Progress/Results/Core Measures Results/Orders Lab Results Laboratory Tests Test 05/04/23 14:10 Range/Units White Blood Count 4.7 4.3-11.0 10^3/uL Red Blood Count 4.06 3.80-5.11 10^6/uL Hemoglobin 13.3 11.5-16.0 g/dL Hematocrit 40 35-52 % Mean Corpuscular Volume 99 80-99 fL Mean Corpuscular Hemoglobin 33 25-34 pg Mean Corpuscular Hemoglobin Concent 33 32-36 g/dL Red Cell Distribution Width 12.2 10.0-14.5 % Platelet Count 207 130-400 10^3/uL Mean Platelet Volume 9.7 9.0-12.2 fL Immature Granulocyte % (Auto) 0 % Neutrophils (%) (Auto) 54 42-75 % Lymphocytes (%) (Auto) 29 12-44 % Monocytes (%) (Auto) 16 H 0-12 % Eosinophils (%) (Auto) 1 0-10 % Basophils (%) (Auto) 1 0-10 % Neutrophils # (Auto) 2.5 1.8-7.8 10^3/uL Lymphocytes # (Auto) 1.4 1.0-4.0 10^3/uL Monocytes # (Auto) 0.7 0.0-1.0 10^3/uL Eosinophils # (Auto) 0.0 0.0-0.3 10^3/uL Basophils # (Auto) 0.0 0.0-0.1 10^3/uL Immature Granulocyte # (Auto) 0.0 0.0-0.1 10^3/uL Sodium Level 138 135-145 MMOL/L Potassium Level 3.6 3.6-5.0 MMOL/L Chloride Level 103 98-107 MMOL/L Carbon Dioxide Level 25 21-32 MMOL/L Anion Gap 10 5-14 MMOL/L Blood Urea Nitrogen 16 7-18 MG/DL Creatinine 0.84 0.60-1.30 MG/DL Estimat Glomerular Filtration Rate 71 BUN/Creatinine Ratio 19 Glucose Level 96 70-105 MG/DL Calcium Level 9.5 8.5-10.1 MG/DL Magnesium Level 1.9 1.6-2.4 MG/DL My Orders Orders - TEODORO LUNA DO Ekg Tracing (05/04/23 13:59) Cbc And Automated Diff (05/04/23 14:08) Basic Metabolic Panel (05/04/23 14:08) Magnesium (05/04/23 14:08) Diltiazem Injection (Diltiazem Injection (05/04/23 14:15) Diltiazem Injection (Diltiazem Injection (05/04/23 15:15) Medications Given in ED Current Medications Medications Dose Ordered Sig/Deena Route Start Time Stop Time Status Last Admin Dose Admin Diltiazem HCl 10 mg ONCE ONCE IVP 05/04/23 14:15 05/04/23 14:16 DC 05/04/23 14:29 10 MG Diltiazem HCl 10 mg ONCE ONCE IVP 05/04/23 15:15 05/04/23 15:16 DC 05/04/23 15:10 10 MG Vital Signs/I&O 05/04/23 05/04/23 05/04/23 05/04/23 14:01 14:29 15:10 15:41 Temp 36.5 Pulse 128 114 135 101 Resp 14 16 B/P (MAP) 116/69 (85) 126/91 112/82 115/88 Pulse Ox 97 95 O2 Delivery Room Air Room Air Blood Pressure Mean: 85 Departure Communication (Admissions) Patient had stable blood pressures throughout her emergency department stay. Initial heart rate was in the 140s. She is relatively asymptomatic outside of some mild palpitations. Denies any chest pain, shortness of breath dizziness or lightheadedness. She is adamant that she does not want to stay in the hospital. I gave her initial 10 mg Cardizem bolus which overall with a rate in the 1 teen range consistently. I then gave her another Cardizem bolus about 30 minutes later and overall rates average now around 80-90. She again remained asymptomatic her blood pressures remained stable. She will be discharged home after she remained stable during observation period of about an hour after Cardizem. She is given orthopedic follow-up and close return precautions Impression Primary Impression: Atrial fibrillation with RVR Disposition: HOME, SELF-CARE Condition: Stable Departure-Patient Inst. Referrals: JENNIFER RIDER MD (PCP/Family) Primary Care Physician Patient Instructions: Atrial Fibrillation and Atrial Flutter ED Add. Discharge Instructions: Your heart rate improved with the provided medications. Continue home medication as previously prescribed. Call Dr. Solorzano to schedule follow-up. Return to the emergency department for any severe concerns. All discharge instructions reviewed with patient and/or family. Voiced understanding. TEODORO LUNA DO May 04, 2023 14:12
[2023-05-04] MEDS ORDERED: dilTIAZem INJ 25 MG/5 ML VIAL IVP ONE ×2 (14:15→15:15)
[2023-05-04 14:20] LABS: BASOPHILS % (AUTO) 1 % (0-10); EOSINOPHILS % (AUTO) 1 % (0-10); HEMATOCRIT 40 % (35-52); HEMOGLOBIN 13.3 g/dL (11.5-16.0); LYMPHOCYTES # (AUTO) 1.4 10^3/uL (1.0-4.0); LYMPHOCYTES % (AUTO) 29 % (12-44); MEAN CORPUSCULAR HEMOGLOBIN 33 pg (25-34); MEAN CORPUSCULAR HGB CONC 33 g/dL (32-36); MEAN CORPUSCULAR VOLUME 99 fL (80-99); MEAN PLATELET VOLUME 9.7 fL (9.0-12.2); MONOCYTES # (AUTO) 0.7 10^3/uL (0.0-1.0); MONOCYTES % (AUTO) 16 % (0-12); NEUTROPHILS # (AUTO) 2.5 10^3/uL (1.8-7.8); NEUTROPHILS % (AUTO) 54 % (42-75); PLATELET COUNT 207 10^3/uL (130-400); WHITE BLOOD COUNT 4.7 10^3/uL (4.3-11.0)
[2023-05-04 14:30] LABS: POTASSIUM 3.6 MMOL/L (3.6-5.0)
[2023-05-04 14:31] LABS: CALCIUM 9.5 MG/DL (8.5-10.1)
[2023-05-04 14:36] LABS: CREATININE SERUM 0.84 MG/DL (0.60-1.30)
[2023-05-04 14:38] LABS: MAGNESIUM 1.9 MG/DL (1.6-2.4)
[2023-05-04 15:41] VITALS: BP 115/88
== END 2023-05-04 15:41 | disposition home or self-care (01) ==
LOC: EDUNIT# 13:54 → ER 13:56
DX: I48.91 Unspecified atrial fibrillation (principal); I10 Essential (primary) hypertension; Z98.890 Other specified postprocedural states; Z79.01 Long term (current) use of anticoagulants; Z79.899 Other long term (current) drug therapy
CPT/HCPCS: 36415; 80048; 83735; 85025; 93005; 96374; 96376